=== PATIENT | male | born 1960 | race Caucasian/White ===

== ENCOUNTER 2016-12-16 22:41 | Inpatient (IN) ==
[2016-12-16] MEDS ORDERED: Ipratropium/Albuterol Neb 3 ML IH ONE (23:22)
[2016-12-16] MEDS ORDERED: 0.9 % Sodium Chloride 1,000 ML IVC ONE (23:22)
--- NOTE | 2016-12-16 23:22 | Emergency Department Note ---
Disposition Clinical Impression: Hepatic encephalopathy, Chronic anemia, Altered mental state Disposition: Admitted As Inpatient Condition: Serious SOB HPI - General Chief Complaint: ED Shortness of Breath/Dyspnea Stated Complaint: VIDA, LETHARGIC Time Seen by Provider: 12/16/16 22:50 Source: EMS Limitations: altered mental status Nursing Notes Reviewed: Yes Vital Signs Reviewed: Yes - History of Present Illness Patient presents to the emergency department by EMS squad in home. Apparently he is lethargic at home and lays around does not get up and ambulate he is on a liver transplant list and has not had a paracentesis and "a long time according to his ". She states that he is a full code and that she wants everything done. He has not had any ammonia levels done recently and she states that when his ammonia level gets high this is what happened into this is how he acts. Patient is semi-responsive will answer some questions at times, he is has history of kidney disease, liver failure. He has copious amount of thick purulent sputum in his mouth that he makes no attempt to clear Will not open his eyes on command. Abdomen is firm, distended, with a large umbilical hernia. His main complaint is lower back pain. Pt Subjective Complaint: shortness of breath Onset (ago): unknown Context: recent illness Severity: severe Consistency/Duration: gradually worsening Improves with: nothing Worsens with: lying flat Known history of: other (kidney and liver failure) Cough Description: Involuntary, Productive, Moist Cough Frequency: Intermittent Sputum Amount: Large Sputum Color: Green - Related Data Home oxygen amount: 2 liters Home Medications Medication Instructions Recorded Confirmed Amitriptyline [Elavil] 50 mg PO HS 10/06/15 11/12/16 Oxygen 2 - 4 l NS CONT 08/18/16 11/12/16 [id number] Inhibitor 10 mg IV QWEEK 09/18/16 11/12/16 [Glassia] Potassium Chloride [K-Tab ER] 10 meq PO BID 10/17/16 11/12/16 Ranitidine HCl [Acid Job Training Specialist] 150 mg PO BID 10/17/16 11/12/16 Pantoprazole Sodium [Protonix] 40 mg PO BID 11/01/16 11/12/16 Previous Rx's Medication Instructions Recorded Albuterol Sulfate [Proair 2 puff IH Q4H PRN #1 aer.[id number] 10/11/16 Respiclick] Alprazolam [Xanax 1 MG Tablet] 0.5 mg PO BID PRN #20 10/11/16 Budesonide/Formoterol 160/4.5 2 puff IH BID #1 10/11/16 [Symbicort 160/4.5] Ipratropium/Albuterol Neb [Duoneb] 3 ml IH Q4HR PRN 30 Days 10/11/16 Magnesium Oxide [Mag-Ox] 800 mg PO BID #120 tablet 10/11/16 Nadolol [Corgard] 20 mg PO HS #30 tablet 10/11/16 Oxycodone HCl 15 mg PO Q4H PRN #15 tablet 10/11/16 Pregabalin [Lyrica] 75 mg PO BID #30 capsule 10/11/16 Prochlorperazine Maleate 10 mg PO Q6HR PRN #20 10/11/16 [Compazine] Rifaximin [Xifaxan] 550 mg PO BID #60 tablet 10/11/16 Sucralfate [Carafate] 1 gm PO QID 30 Days 10/11/16 Morphine Sulfate [Morphine Sulfate 30 mg PO DAILY #30 cpmp.24hr 10/21/16 ER] OxyCODONE ER (12 HR) [OxyCONTIN] 20 mg PO Q12HR #60 tab.er.12h 10/21/16 Spironolactone [Aldactone] 100 mg PO BID #60 tablet 10/21/16 Lactulose 30 gm PO TID 30 Days 11/08/16 Ergocalciferol (VITAMIN D2) 50,000 unit PO QWEEK #7 capsule 11/20/16 [Vitamin D2] Folic Acid 5 mg PO DAILY #30 tablet 11/20/16 Furosemide [Lasix] 40 mg PO DAILY #30 tablet 11/20/16 Zinc Sulfate 220 mg PO TID #90 capsule 11/20/16 Allergies Allergy/AdvReac Type Severity Reaction Status Date / Time No Known Allergies Allergy Verified 12/16/16 22:42 All systems ED: reviewed and negative except as stated. Respiratory: Reports: cough, dyspnea, wheezes Gastrointestinal: Reports: abdominal pain Past Medical History - Past Medical History Attestation: Yes The following information was validated with the patient. Source: obtained from family, nursing notes reviewed Medical history: Reports: arthritis, cirrhosis, COPD, coronary artery disease, DVT, diabetes, GERD, GI bleed, hepatitis, hyperlipidemia, hypertension, liver disease, other Surgical history: Reports: other Psychiatric history: Reports: no psych history, other - Social History Smoking Status: Former smoker Smokeless Tobacco Status: No Alcohol use: Reports: none Drug use: Reports: none Physical Exam - General Limitations: altered mental status General appearance: lethargic, in distress, other - Head Head exam: atraumatic, normocephalic, normal inspection - Eye Eye exam: Present: normal appearance, PERRL, EOMI - Expanded ENT Exam External ear exam: Present: normal external inspection, other (ulceration noted of the left ear pinna ) Mouth exam: Present: drooling Teeth exam: Present: dental caries - Neck Neck exam: Present: normal inspection, trachea midline. Absent: tenderness, meningismus, lymphadenopathy, thyromegaly - Chest Chest inspection: Present: normal inspection, symmetric chest wall rise - Expanded Respiratory Exam Location: wheezes: Left, Right, rales: Left, Right, rhonchi: Left, Right, decreased breath sounds: Right - Cardiovascular Cardiovascular exam: Present: regular rate, normal rhythm, normal heart sounds. Absent: systolic murmur, diastolic murmur, JVD - Abdominal Exam Abdominal exam: Present: distention, diminished bowel sounds, ascites Abdominal tenderness: Present: diffuse - Rectal Exam Rectal exam: Present: deferred - Extremities Exam Extremities exam: Present: normal inspection, full ROM. Absent: tenderness, pedal edema - Back Exam Back exam: Present: tenderness (lower back ), other (unable to cooperate with physical exam and unable to raise his extremities upon command ) - Neurological Exam Neurological exam: Present: other (diminished LOC, ) - Skin Skin exam: Present: dry Course Vital Signs Temperature 97.8 F 12/16/16 22:43 Pulse Rate 61 12/16/16 22:43 Respiratory Rate 24 12/16/16 22:43 Blood Pressure 108/71 12/16/16 22:43 O2 Sat by Pulse Oximetry 98 12/16/16 22:43 Temperature 97.8 F 12/16/16 22:43 Pulse Rate 58 12/17/16 00:26 Respiratory Rate 20 12/17/16 00:26 Blood Pressure 116/71 12/17/16 00:26 O2 Sat by Pulse Oximetry 99 12/17/16 00:26 Oxygen Delivery Oxygen Delivery Nasal Cannula Shortness of Breath/Dyspnea - Lab Data Result diagrams: 12/16/16 23:16 12/16/16 23:16 Lab Results 12/16/16 12/16/16 12/16/16 Range/Units 22:48 23:16 23:16 WBC 4.1 L (4.3-11.1) K/mcL RBC 2.66 L (4.19-5.50) M/mcL Hgb 8.4 L (12.9-16.9) g/dL Hct 25.3 L (37.5-50.1) % MCV 95.1 (83.0-100.0) fL MCH 31.6 (28.0-33.3) pg MCHC 33.2 (31.6-35.5) g/dL RDW 15.9 H (11.5-14.5) % Plt Count 82 L (140-400) K/mcL MPV 10.9 (9.4-12.4) fL Immature Gran % 0.5 (0-4) % Seg Neutrophils % 56.1 % Lymphocytes % 24.0 % Monocytes % 13.3 % Eosinophils % 5.4 % Basophils % 0.7 % Neutrophils # 2.3 (1.6-8.9) K/mcL Lymphocytes # 1.0 (0.6-4.6) K/mcL Monocytes # 0.6 (0.0-1.3) K/mcL Eosinophils # 0.2 (0.0-0.6) K/mcL Basophils # 0.0 (0.0-0.2) K/mcL PT (9.4-12.1) Seconds INR APTT (26.0-36.0) Seconds ABG pH (7.32-7.45) pH Units ABG pCO2 (35-45) mmHg ABG pO2 (85-104) mmHg ABG HCO3 (21-27) mEQ/L ABG Total CO2 (20-26) mEq/L ABG O2 Saturation (95-98) % ABG Base Excess (-2.0 to 3.0) mEq/L Blood Gas Modality Inspired O2 % Sodium (136-145) mEq/L Potassium (3.5-4.5) mEq/L Chloride (98-109) mEq/L Carbon Dioxide (19-29) mEq/L BUN (8-26) mg/dL Creatinine (0.72-1.25) mg/dL Est GFR ( Amer) (> 60) Est GFR (Non-Af Amer) (> 60) BUN/Creatinine Ratio (6-26) Glucose (70-99) mg/dL POC Glucose 122 H (58-89) Calculated Osmolality (280-300) Lactic Acid 1.3 (0.5-2.2) mmol/L Calcium (8.6-10.8) mg/dL Ammonia (18-72) mcmol/L Troponin I (0-0.03) ng/mL B-Natriuretic Peptide (0-100) pg/mL Urine Color (Yellow) Urine Clarity (Clear) Urine pH (5.0-8.0) pH Units Ur Specific [place] (1.010-1.025) Urine Protein (Neg-Trace) mg/dL Urine Glucose (UA) (Normal) mg/dL Urine Ketones (Negative) mg/dL Urine Blood (Negative) Urine Nitrite (Negative) Urine Bilirubin (Negative) Urine Urobilinogen (Normal) mg/dL Ur Leukocyte Esterase (Negative) Ur Culture Indicated? (NO) 12/16/16 12/16/16 12/16/16 Range/Units 23:16 23:16 23:16 WBC (4.3-11.1) K/mcL RBC (4.19-5.50) M/mcL Hgb (12.9-16.9) g/dL Hct (37.5-50.1) % MCV (83.0-100.0) fL MCH (28.0-33.3) pg MCHC (31.6-35.5) g/dL RDW (11.5-14.5) % Plt Count (140-400) K/mcL MPV (9.4-12.4) fL Immature Gran % (0-4) % Seg Neutrophils % % Lymphocytes % % Monocytes % % Eosinophils % % Basophils % % Neutrophils # (1.6-8.9) K/mcL Lymphocytes # (0.6-4.6) K/mcL Monocytes # (0.0-1.3) K/mcL Eosinophils # (0.0-0.6) K/mcL Basophils # (0.0-0.2) K/mcL PT (9.4-12.1) Seconds INR APTT (26.0-36.0) Seconds ABG pH (7.32-7.45) pH Units ABG pCO2 (35-45) mmHg ABG pO2 (85-104) mmHg ABG HCO3 (21-27) mEQ/L ABG Total CO2 (20-26) mEq/L ABG O2 Saturation (95-98) % ABG Base Excess (-2.0 to 3.0) mEq/L Blood Gas Modality Inspired O2 % Sodium 137 (136-145) mEq/L Potassium 3.8 (3.5-4.5) mEq/L Chloride 107 (98-109) mEq/L Carbon Dioxide 26 (19-29) mEq/L BUN 22 (8-26) mg/dL Creatinine 0.79 (0.72-1.25) mg/dL Est GFR ( Amer) > 60 (> 60) Est GFR (Non-Af Amer) > 60 (> 60) BUN/Creatinine Ratio 28 H (6-26) Glucose 134 H (70-99) mg/dL POC Glucose (58-89) Calculated Osmolality 289 (280-300) Lactic Acid (0.5-2.2) mmol/L Calcium 8.5 L (8.6-10.8) mg/dL Ammonia (18-72) mcmol/L Troponin I 0.01 (0-0.03) ng/mL B-Natriuretic Peptide 101 H (0-100) pg/mL Urine Color (Yellow) Urine Clarity (Clear) Urine pH (5.0-8.0) pH Units Ur Specific [place] (1.010-1.025) Urine Protein (Neg-Trace) mg/dL Urine Glucose (UA) (Normal) mg/dL Urine Ketones (Negative) mg/dL Urine Blood (Negative) Urine Nitrite (Negative) Urine Bilirubin (Negative) Urine Urobilinogen (Normal) mg/dL Ur Leukocyte Esterase (Negative) Ur Culture Indicated? (NO) 12/16/16 12/16/16 12/16/16 Range/Units 23:16 23:16 23:30 WBC (4.3-11.1) K/mcL RBC (4.19-5.50) M/mcL Hgb (12.9-16.9) g/dL Hct (37.5-50.1) % MCV (83.0-100.0) fL MCH (28.0-33.3) pg MCHC (31.6-35.5) g/dL RDW (11.5-14.5) % Plt Count (140-400) K/mcL MPV (9.4-12.4) fL Immature Gran % (0-4) % Seg Neutrophils % % Lymphocytes % % Monocytes % % Eosinophils % % Basophils % % Neutrophils # (1.6-8.9) K/mcL Lymphocytes # (0.6-4.6) K/mcL Monocytes # (0.0-1.3) K/mcL Eosinophils # (0.0-0.6) K/mcL Basophils # (0.0-0.2) K/mcL PT 21.2 H (9.4-12.1) Seconds INR 1.9 APTT 26.3 (26.0-36.0) Seconds ABG pH 7.39 (7.32-7.45) pH Units ABG pCO2 49 H (35-45) mmHg ABG pO2 67 L (85-104) mmHg ABG HCO3 29.7 H (21-27) mEQ/L ABG Total CO2 31.2 H (20-26) mEq/L ABG O2 Saturation 93 L (95-98) % ABG Base Excess 4.2 H (-2.0 to 3.0) mEq/L Blood Gas Modality [place] Inspired O2 28 % Sodium (136-145) mEq/L Potassium (3.5-4.5) mEq/L Chloride (98-109) mEq/L Carbon Dioxide (19-29) mEq/L BUN (8-26) mg/dL Creatinine (0.72-1.25) mg/dL Est GFR ( Amer) (> 60) Est GFR (Non-Af Amer) (> 60) BUN/Creatinine Ratio (6-26) Glucose (70-99) mg/dL POC Glucose (58-89) Calculated Osmolality (280-300) Lactic Acid (0.5-2.2) mmol/L Calcium (8.6-10.8) mg/dL Ammonia 121 H (18-72) mcmol/L Troponin I (0-0.03) ng/mL B-Natriuretic Peptide (0-100) pg/mL Urine Color (Yellow) Urine Clarity (Clear) Urine pH (5.0-8.0) pH Units Ur Specific [place] (1.010-1.025) Urine Protein (Neg-Trace) mg/dL Urine Glucose (UA) (Normal) mg/dL Urine Ketones (Negative) mg/dL Urine Blood (Negative) Urine Nitrite (Negative) Urine Bilirubin (Negative) Urine Urobilinogen (Normal) mg/dL Ur Leukocyte Esterase (Negative) Ur Culture Indicated? (NO) 12/16/16 Range/Units 23:55 WBC (4.3-11.1) K/mcL RBC (4.19-5.50) M/mcL Hgb (12.9-16.9) g/dL Hct (37.5-50.1) % MCV (83.0-100.0) fL MCH (28.0-33.3) pg MCHC (31.6-35.5) g/dL RDW (11.5-14.5) % Plt Count (140-400) K/mcL MPV (9.4-12.4) fL Immature Gran % (0-4) % Seg Neutrophils % % Lymphocytes % % Monocytes % % Eosinophils % % Basophils % % Neutrophils # (1.6-8.9) K/mcL Lymphocytes # (0.6-4.6) K/mcL Monocytes # (0.0-1.3) K/mcL Eosinophils # (0.0-0.6) K/mcL Basophils # (0.0-0.2) K/mcL PT (9.4-12.1) Seconds INR APTT (26.0-36.0) Seconds ABG pH (7.32-7.45) pH Units ABG pCO2 (35-45) mmHg ABG pO2 (85-104) mmHg ABG HCO3 (21-27) mEQ/L ABG Total CO2 (20-26) mEq/L ABG O2 Saturation (95-98) % ABG Base Excess (-2.0 to 3.0) mEq/L Blood Gas Modality Inspired O2 % Sodium (136-145) mEq/L Potassium (3.5-4.5) mEq/L Chloride (98-109) mEq/L Carbon Dioxide (19-29) mEq/L BUN (8-26) mg/dL Creatinine (0.72-1.25) mg/dL Est GFR ( Amer) (> 60) Est GFR (Non-Af Amer) (> 60) BUN/Creatinine Ratio (6-26) Glucose (70-99) mg/dL POC Glucose (58-89) Calculated Osmolality (280-300) Lactic Acid (0.5-2.2) mmol/L Calcium (8.6-10.8) mg/dL Ammonia (18-72) mcmol/L Troponin I (0-0.03) ng/mL B-Natriuretic Peptide (0-100) pg/mL Urine Color Yellow (Yellow) Urine Clarity Clear (Clear) Urine pH 6.0 (5.0-8.0) pH Units Ur Specific [place] 1.021 (1.010-1.025) Urine Protein Negative (Neg-Trace) mg/dL Urine Glucose (UA) Normal (Normal) mg/dL Urine Ketones Negative (Negative) mg/dL Urine Blood Negative (Negative) Urine Nitrite Negative (Negative) Urine Bilirubin Negative (Negative) Urine Urobilinogen Normal (Normal) mg/dL Ur Leukocyte Esterase Negative (Negative) Ur Culture Indicated? NO (NO) Attestation Statement - Attestation Attestation: I, Elvis Bosch MD, personally performed a history and physical exam of the patient and discussed their management with the midlevel provicer, PAC/MOLD DESIGNER. I reviewed the midlevel provider's note and agree with the documented findings, medical decision making, and plan of care. 56-year-old male with history of liver failure presents with complaining of decreased mental status and some difficulty breathing. She reports that he has episodes like this when his ammonia level gets high. On examination patient is a well-developed well-nourished male who appears much older than his actual age. Patient is very drowsy and lethargic but does respond to verbal stimuli. There is no cyanosis or diaphoresis. Oxygen saturation is 100% on oxygen at 2 L by nasal cannula at time of examination. Sounds are decreased but equal bilaterally. No rales or wheezes noted. Heart regular rate and rhythm. Abdomen soft with bowel sounds present. Distended with ascites. Labs reviewed. The hospitalist, Dr. Aguila, was consulted and accepted admission of the patient.
[2016-12-16 23:29] LABS: Basophils % 0.7 %; Eosinophils # 0.2 K/mcL (0.0-0.6); Eosinophils % 5.4 %; Hematocrit 25.3 % (37.5-50.1); Hemoglobin 8.4 g/dL (12.9-16.9); Immature Granulocytes % 0.5 % (0-4); Mean Corpuscular HGB Conc 33.2 g/dL (31.6-35.5); Mean Corpuscular Hemoglobin 31.6 pg (28.0-33.3); Mean Corpuscular Volume 95.1 fL (83.0-100.0); Mean Platelet Volume 10.9 fL (9.4-12.4); Monocytes # 0.6 K/mcL (0.0-1.3); Monocytes % 13.3 %; Neutrophils # 2.3 K/mcL (1.6-8.9); Platelet Count 82 K/mcL (140-400); Red Blood Count 2.66 M/mcL (4.19-5.50); Red Cell Distribution Width 15.9 % (11.5-14.5); Segmented Neutrophils % 56.1 %
[2016-12-16 23:42] LABS: ABG Base Excess 4.2 mEq/L (-2.0 to 3.0); ABG HCO3 29.7 mEQ/L (21-27); ABG Oxygen Saturation 93 % (95-98); ABG PCO2 49 mmHg (35-45); ABG PH 7.39 pH Units (7.32-7.45); ABG PO2 67 mmHg (85-104); ABG TCO2 31.2 mEq/L (20-26); Blood Gas FiO2 28 %
[2016-12-16 23:43] LABS: BUN/Creatinine Ratio 28 (6-26); Blood Urea Nitrogen 22 mg/dL (8-26); Calcium 8.5 mg/dL (8.6-10.8); Carbon Dioxide 26 mEq/L (19-29); Chloride 107 mEq/L (98-109); Glucose 134 mg/dL (70-99); Osmolality,Calculated 289 (280-300); Potassium 3.8 mEq/L (3.5-4.5); Sodium 137 mEq/L (136-145); eGFR For African Americans > 60 (> 60); eGFR For Non-African Americans > 60 (> 60)
[2016-12-17 00:13] LABS: Bilirubin,Urine Negative (Negative); Blood,Urine Negative (Negative); Clarity,Urine Clear (Clear); Color,Urine Yellow (Yellow); Glucose,Urine (UA) Normal (Normal); Ketones,Urine Negative (Negative); Leukocyte Esterase,Urine Negative (Negative); Nitrite,Urine Negative (Negative); Protein,Urine Negative (Neg-Trace); Specific Gravity,Urine 1.021 (1.010-1.025); Urobilinogen,Urine Normal (Normal)
[2016-12-17] MEDS ORDERED: Lactulose 200 GM/300 ML (for enema) RC ONE (00:13)
--- NOTE | 2016-12-17 00:21 | Emergency Department Note ---
Disposition Clinical Impression: Hepatic encephalopathy, Chronic anemia Altered mental state Qualifiers: Altered mental status type: unspecified Qualified Code(s): R41.82 - Altered mental status, unspecified Disposition: Admitted As Inpatient Condition: Serious General Adult HPI - General Chief complaint: ED Shortness of Breath/Dyspnea Stated complaint: VIDA, LETHARGIC Time Seen by Provider: 12/16/16 23:53 Source: EMS Limitations: altered mental status Nursing Notes Reviewed: Yes Vital Signs Reviewed: Yes - History of Present Illness HPI Narrative: 56-year-old male with past medical history of alpha 1 antitrypsin deficiency. He has end-stage cirrhosis and liver failure. Reportedly he is on the transplant list at [facility]. Over the past 2-3 days he has had progressive decline in his mental status. This is happened numerous times in the past and has been secondary to elevated ammonia levels. He was most recently admitted one month ago. Other medical problems include COPD, hypertension, CKD. He does take lactulose 30 3 times a day and rifaximin. He and his spouse denied that he has had a fever. He and his requests to be full code including intubation if necessary Pain Scale: 0 Consistency: constant Improves with: nothing Worsens with: nothing Associated symptoms: Reports: denies other symptoms Treatments Prior to Arrival: none - Related Data Home Medications Medication Instructions Recorded Confirmed Amitriptyline [Elavil] 50 mg PO HS 10/06/15 11/12/16 Oxygen 2 - 4 l NS CONT 08/18/16 11/12/16 [id number] Inhibitor 10 mg IV QWEEK 09/18/16 11/12/16 [Glassia] Potassium Chloride [K-Tab ER] 10 meq PO BID 10/17/16 11/12/16 Ranitidine HCl [Acid [employer]] 150 mg PO BID 10/17/16 11/12/16 Pantoprazole Sodium [Protonix] 40 mg PO BID 11/01/16 11/12/16 Previous Rx's Medication Instructions Recorded Albuterol Sulfate [Proair 2 puff IH Q4H PRN #1 aer.[id number] 10/11/16 Respiclick] Alprazolam [Xanax 1 MG Tablet] 0.5 mg PO BID PRN #20 10/11/16 Budesonide/Formoterol 160/4.5 2 puff IH BID #1 10/11/16 [Symbicort 160/4.5] Ipratropium/Albuterol Neb [Duoneb] 3 ml IH Q4HR PRN 30 Days 10/11/16 Magnesium Oxide [Mag-Ox] 800 mg PO BID #120 tablet 10/11/16 Nadolol [Corgard] 20 mg PO HS #30 tablet 10/11/16 Oxycodone HCl 15 mg PO Q4H PRN #15 tablet 10/11/16 Pregabalin [Lyrica] 75 mg PO BID #30 capsule 10/11/16 Prochlorperazine Maleate 10 mg PO Q6HR PRN #20 10/11/16 [Compazine] Rifaximin [Xifaxan] 550 mg PO BID #60 tablet 10/11/16 Sucralfate [Carafate] 1 gm PO QID 30 Days 10/11/16 Morphine Sulfate [Morphine Sulfate 30 mg PO DAILY #30 cpmp.24hr 10/21/16 ER] OxyCODONE ER (12 HR) [OxyCONTIN] 20 mg PO Q12HR #60 tab.er.12h 10/21/16 Spironolactone [Aldactone] 100 mg PO BID #60 tablet 10/21/16 Lactulose 30 gm PO TID 30 Days 11/08/16 Ergocalciferol (VITAMIN D2) 50,000 unit PO QWEEK #7 capsule 11/20/16 [Vitamin D2] Folic Acid 5 mg PO DAILY #30 tablet 11/20/16 Furosemide [Lasix] 40 mg PO DAILY #30 tablet 11/20/16 Zinc Sulfate 220 mg PO TID #90 capsule 11/20/16 Allergies Allergy/AdvReac Type Severity Reaction Status Date / Time No Known Allergies Allergy Verified 12/16/16 22:42 All systems ED: reviewed and negative except as stated. Constitutional: Denies: fever Eyes: Denies: vision change ENT ED: Denies: throat pain Respiratory: Reports: cough (Mild) Gastrointestinal: Reports: nausea. Denies: abdominal pain, vomiting Musculoskeletal: Reports: back pain (Chronic) Integumentary: Denies: rash Past Medical History - Past Medical History Medical history: Reports: arthritis, cirrhosis, COPD, coronary artery disease, DVT, diabetes, GERD, GI bleed, hepatitis, hyperlipidemia, hypertension, liver disease, other Surgical history: Reports: other Psychiatric history: Reports: no psych history, other - Social History Smoking Status: Former smoker Smokeless Tobacco Status: No Alcohol use: Reports: none Drug use: Reports: none Physical Exam - General Limitations: altered mental status General appearance: lethargic, other - Head Head exam: atraumatic - Eye Eye exam: Present: PERRL - ENT ENT exam: normal exam, normal oropharynx - Neck Neck exam: Present: normal inspection - Chest Chest inspection: Present: normal inspection - Respiratory Respiratory exam: Present: normal lung sounds bilaterally, other (Upper respiratory rhonchi) - Cardiovascular Cardiovascular exam: Present: regular rate, normal rhythm - Abdominal Exam Abdominal exam: Present: soft (Fluid wave is present, not tense, nontender) - Extremities Exam Extremities exam: Present: normal inspection - Back Exam Back exam: Present: normal inspection - Neurological Exam Neurological exam: Present: other (Decreased mental status and he does wake to answer questions. He does move all extremities) - Skin Skin exam: Present: warm, dry Course Course Narrative: He is currently protecting his airway and will cough on command. He does have an elevated ammonia level but I am concerned about aspiration if he is forced to take the lactulose by mouth. Because of this we will give rectal lactulose. He is afebrile does not have pain on palpation of the abdomen and is not have an elevated white blood cell count. I do not have a current concern for spontaneous bacterial peritonitis. I have given lactulose and Dr. Aguila has agreed to admit the patient. Vital Signs Temperature 97.8 F 12/16/16 22:43 Pulse Rate 61 12/16/16 22:43 Respiratory Rate 24 12/16/16 22:43 Blood Pressure 108/71 12/16/16 22:43 O2 Sat by Pulse Oximetry 98 12/16/16 22:43 Temperature 97.8 F 12/16/16 22:43 Pulse Rate 58 12/17/16 00:26 Respiratory Rate 20 12/17/16 00:26 Blood Pressure 116/71 12/17/16 00:26 O2 Sat by Pulse Oximetry 99 12/17/16 00:26 Oxygen Delivery Oxygen Delivery Nasal Cannula Medical Decision Making - Medical Records Medical records reviewed: Yes I reviewed the patient's medical records. - Lab Data Lab results reviewed: Yes I reviewed the patient's lab results. Result diagrams: 12/16/16 23:16 12/16/16 23:16 Lab Results 12/16/16 12/16/16 12/16/16 Range/Units 22:48 23:16 23:16 WBC 4.1 L (4.3-11.1) K/mcL RBC 2.66 L (4.19-5.50) M/mcL Hgb 8.4 L (12.9-16.9) g/dL Hct 25.3 L (37.5-50.1) % MCV 95.1 (83.0-100.0) fL MCH 31.6 (28.0-33.3) pg MCHC 33.2 (31.6-35.5) g/dL RDW 15.9 H (11.5-14.5) % Plt Count 82 L (140-400) K/mcL MPV 10.9 (9.4-12.4) fL Immature Gran % 0.5 (0-4) % Seg Neutrophils % 56.1 % Lymphocytes % 24.0 % Monocytes % 13.3 % Eosinophils % 5.4 % Basophils % 0.7 % Neutrophils # 2.3 (1.6-8.9) K/mcL Lymphocytes # 1.0 (0.6-4.6) K/mcL Monocytes # 0.6 (0.0-1.3) K/mcL Eosinophils # 0.2 (0.0-0.6) K/mcL Basophils # 0.0 (0.0-0.2) K/mcL PT (9.4-12.1) Seconds INR APTT (26.0-36.0) Seconds ABG pH (7.32-7.45) pH Units ABG pCO2 (35-45) mmHg ABG pO2 (85-104) mmHg ABG HCO3 (21-27) mEQ/L ABG Total CO2 (20-26) mEq/L ABG O2 Saturation (95-98) % ABG Base Excess (-2.0 to 3.0) mEq/L Blood Gas Modality Inspired O2 % Sodium (136-145) mEq/L Potassium (3.5-4.5) mEq/L Chloride (98-109) mEq/L Carbon Dioxide (19-29) mEq/L BUN (8-26) mg/dL Creatinine (0.72-1.25) mg/dL Est GFR ( Amer) (> 60) Est GFR (Non-Af Amer) (> 60) BUN/Creatinine Ratio (6-26) Glucose (70-99) mg/dL POC Glucose 122 H (58-89) Calculated Osmolality (280-300) Lactic Acid 1.3 (0.5-2.2) mmol/L Calcium (8.6-10.8) mg/dL Ammonia (18-72) mcmol/L Troponin I (0-0.03) ng/mL B-Natriuretic Peptide (0-100) pg/mL Urine Color (Yellow) Urine Clarity (Clear) Urine pH (5.0-8.0) pH Units Ur Specific [place] (1.010-1.025) Urine Protein (Neg-Trace) mg/dL Urine Glucose (UA) (Normal) mg/dL Urine Ketones (Negative) mg/dL Urine Blood (Negative) Urine Nitrite (Negative) Urine Bilirubin (Negative) Urine Urobilinogen (Normal) mg/dL Ur Leukocyte Esterase (Negative) Ur Culture Indicated? (NO) 12/16/16 12/16/16 12/16/16 Range/Units 23:16 23:16 23:16 WBC (4.3-11.1) K/mcL RBC (4.19-5.50) M/mcL Hgb (12.9-16.9) g/dL Hct (37.5-50.1) % MCV (83.0-100.0) fL MCH (28.0-33.3) pg MCHC (31.6-35.5) g/dL RDW (11.5-14.5) % Plt Count (140-400) K/mcL MPV (9.4-12.4) fL Immature Gran % (0-4) % Seg Neutrophils % % Lymphocytes % % Monocytes % % Eosinophils % % Basophils % % Neutrophils # (1.6-8.9) K/mcL Lymphocytes # (0.6-4.6) K/mcL Monocytes # (0.0-1.3) K/mcL Eosinophils # (0.0-0.6) K/mcL Basophils # (0.0-0.2) K/mcL PT (9.4-12.1) Seconds INR APTT (26.0-36.0) Seconds ABG pH (7.32-7.45) pH Units ABG pCO2 (35-45) mmHg ABG pO2 (85-104) mmHg ABG HCO3 (21-27) mEQ/L ABG Total CO2 (20-26) mEq/L ABG O2 Saturation (95-98) % ABG Base Excess (-2.0 to 3.0) mEq/L Blood Gas Modality Inspired O2 % Sodium 137 (136-145) mEq/L Potassium 3.8 (3.5-4.5) mEq/L Chloride 107 (98-109) mEq/L Carbon Dioxide 26 (19-29) mEq/L BUN 22 (8-26) mg/dL Creatinine 0.79 (0.72-1.25) mg/dL Est GFR ( Amer) > 60 (> 60) Est GFR (Non-Af Amer) > 60 (> 60) BUN/Creatinine Ratio 28 H (6-26) Glucose 134 H (70-99) mg/dL POC Glucose (58-89) Calculated Osmolality 289 (280-300) Lactic Acid (0.5-2.2) mmol/L Calcium 8.5 L (8.6-10.8) mg/dL Ammonia (18-72) mcmol/L Troponin I 0.01 (0-0.03) ng/mL B-Natriuretic Peptide 101 H (0-100) pg/mL Urine Color (Yellow) Urine Clarity (Clear) Urine pH (5.0-8.0) pH Units Ur Specific [place] (1.010-1.025) Urine Protein (Neg-Trace) mg/dL Urine Glucose (UA) (Normal) mg/dL Urine Ketones (Negative) mg/dL Urine Blood (Negative) Urine Nitrite (Negative) Urine Bilirubin (Negative) Urine Urobilinogen (Normal) mg/dL Ur Leukocyte Esterase (Negative) Ur Culture Indicated? (NO) 12/16/16 12/16/16 12/16/16 Range/Units 23:16 23:16 23:30 WBC (4.3-11.1) K/mcL RBC (4.19-5.50) M/mcL Hgb (12.9-16.9) g/dL Hct (37.5-50.1) % MCV (83.0-100.0) fL MCH (28.0-33.3) pg MCHC (31.6-35.5) g/dL RDW (11.5-14.5) % Plt Count (140-400) K/mcL MPV (9.4-12.4) fL Immature Gran % (0-4) % Seg Neutrophils % % Lymphocytes % % Monocytes % % Eosinophils % % Basophils % % Neutrophils # (1.6-8.9) K/mcL Lymphocytes # (0.6-4.6) K/mcL Monocytes # (0.0-1.3) K/mcL Eosinophils # (0.0-0.6) K/mcL Basophils # (0.0-0.2) K/mcL PT 21.2 H (9.4-12.1) Seconds INR 1.9 APTT 26.3 (26.0-36.0) Seconds ABG pH 7.39 (7.32-7.45) pH Units ABG pCO2 49 H (35-45) mmHg ABG pO2 67 L (85-104) mmHg ABG HCO3 29.7 H (21-27) mEQ/L ABG Total CO2 31.2 H (20-26) mEq/L ABG O2 Saturation 93 L (95-98) % ABG Base Excess 4.2 H (-2.0 to 3.0) mEq/L Blood Gas Modality [place] Inspired O2 28 % Sodium (136-145) mEq/L Potassium (3.5-4.5) mEq/L Chloride (98-109) mEq/L Carbon Dioxide (19-29) mEq/L BUN (8-26) mg/dL Creatinine (0.72-1.25) mg/dL Est GFR ( Amer) (> 60) Est GFR (Non-Af Amer) (> 60) BUN/Creatinine Ratio (6-26) Glucose (70-99) mg/dL POC Glucose (58-89) Calculated Osmolality (280-300) Lactic Acid (0.5-2.2) mmol/L Calcium (8.6-10.8) mg/dL Ammonia 121 H (18-72) mcmol/L Troponin I (0-0.03) ng/mL B-Natriuretic Peptide (0-100) pg/mL Urine Color (Yellow) Urine Clarity (Clear) Urine pH (5.0-8.0) pH Units Ur Specific [place] (1.010-1.025) Urine Protein (Neg-Trace) mg/dL Urine Glucose (UA) (Normal) mg/dL Urine Ketones (Negative) mg/dL Urine Blood (Negative) Urine Nitrite (Negative) Urine Bilirubin (Negative) Urine Urobilinogen (Normal) mg/dL Ur Leukocyte Esterase (Negative) Ur Culture Indicated? (NO) 12/16/16 Range/Units 23:55 WBC (4.3-11.1) K/mcL RBC (4.19-5.50) M/mcL Hgb (12.9-16.9) g/dL Hct (37.5-50.1) % MCV (83.0-100.0) fL MCH (28.0-33.3) pg MCHC (31.6-35.5) g/dL RDW (11.5-14.5) % Plt Count (140-400) K/mcL MPV (9.4-12.4) fL Immature Gran % (0-4) % Seg Neutrophils % % Lymphocytes % % Monocytes % % Eosinophils % % Basophils % % Neutrophils # (1.6-8.9) K/mcL Lymphocytes # (0.6-4.6) K/mcL Monocytes # (0.0-1.3) K/mcL Eosinophils # (0.0-0.6) K/mcL Basophils # (0.0-0.2) K/mcL PT (9.4-12.1) Seconds INR APTT (26.0-36.0) Seconds ABG pH (7.32-7.45) pH Units ABG pCO2 (35-45) mmHg ABG pO2 (85-104) mmHg ABG HCO3 (21-27) mEQ/L ABG Total CO2 (20-26) mEq/L ABG O2 Saturation (95-98) % ABG Base Excess (-2.0 to 3.0) mEq/L Blood Gas Modality Inspired O2 % Sodium (136-145) mEq/L Potassium (3.5-4.5) mEq/L Chloride (98-109) mEq/L Carbon Dioxide (19-29) mEq/L BUN (8-26) mg/dL Creatinine (0.72-1.25) mg/dL Est GFR ( Amer) (> 60) Est GFR (Non-Af Amer) (> 60) BUN/Creatinine Ratio (6-26) Glucose (70-99) mg/dL POC Glucose (58-89) Calculated Osmolality (280-300) Lactic Acid (0.5-2.2) mmol/L Calcium (8.6-10.8) mg/dL Ammonia (18-72) mcmol/L Troponin I (0-0.03) ng/mL B-Natriuretic Peptide (0-100) pg/mL Urine Color Yellow (Yellow) Urine Clarity Clear (Clear) Urine pH 6.0 (5.0-8.0) pH Units Ur Specific [place] 1.021 (1.010-1.025) Urine Protein Negative (Neg-Trace) mg/dL Urine Glucose (UA) Normal (Normal) mg/dL Urine Ketones Negative (Negative) mg/dL Urine Blood Negative (Negative) Urine Nitrite Negative (Negative) Urine Bilirubin Negative (Negative) Urine Urobilinogen Normal (Normal) mg/dL Ur Leukocyte Esterase Negative (Negative) Ur Culture Indicated? NO (NO) - Radiology Data Radiology results reviewed: Yes I reviewed the patient's radiology results. Attestation Statement - Attestation Attestation: I, Elvis Bosch MD, personally performed a history and physical exam of the patient and discussed their management with the resident. I reviewed the resident's note and agree with the documented findings, medical decision making , and plan of care. 56-year-old male with history of liver failure presents with complaining of decreased mental status and some difficulty breathing. She reports that he has episodes like this when his ammonia level gets high. On examination patient is a well-developed well-nourished male who appears much older than his actual age. Patient is very drowsy and lethargic but does respond to verbal stimuli. There is no cyanosis or diaphoresis. Oxygen saturation is 100% on oxygen at 2 L by nasal cannula at time of examination. Sounds are decreased but equal bilaterally. No rales or wheezes noted. Heart regular rate and rhythm. Abdomen soft with bowel sounds present. Distended with ascites. Labs reviewed. The hospitalist, Dr. Aguila, was consulted and accepted admission of the patient.
[2016-12-17 00:37] LABS: INR 1.9; Prothrombin Time 21.2 Seconds (9.4-12.1)
[2016-12-17 00:40] LABS: Activated Partial Thrombo Time 26.3 Seconds (26.0-36.0)
[2016-12-17] MEDS ORDERED: Naloxone 0.4 MG/ML INJ IVP PRN (02:42)
[2016-12-17] MEDS ORDERED: Ibuprofen 400 MG TABLET PO PRN (02:48)
[2016-12-17] MEDS ORDERED: Ondansetron 4 MG/2 ML VIAL IVP PRN (02:48)
[2016-12-17] MEDS ORDERED: Ipratropium/Albuterol Neb 3 ML IH PRN (02:58)
[2016-12-17] MEDS ORDERED: ALPHA 1 PROTEINASE INHIBITOR IVP SCH (03:00)
--- NOTE | 2016-12-17 03:10 | Internal Med History&Physical ---
<Jordan King - Last Filed: 12/17/16 06:07> Date of Encounter: 12/17/16 Time of Encounter: 02:00 Assessment and Plan (1) Hepatic encephalopathy Current visit: Yes Status: Chronic Etiology likely due to cirrhosis from rljpx-4-mlrgtiotfkx deficiency. Continue home regimen of lactulose. Consult to Gastroenterology- patient has history of esophageal varices and may need EGD NPO except medications. In setting of fevers, chills, and newly placed PICC line, consider sepsis as a possible cause. Patient has history of urine culture positive for ESBL E.Coli Empiric coverage with vancomycin and zosyn Blood cultures x2 pending. (2) COPD exacerbation Current visit: No Status: Acute Patient has underlying lung disease with baseline wheezing. Likely in exacerbation-patient has had increased cough and sputum production for the past 5 days. IV antibiotic coverage as above. 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 He is allegedly on list for liver transplant. Patient wishes to remain full code. If he continues to deteriorate, he will likely need to be sent to larger medical facility with available organ transplant services. (4) Cirrhosis of liver with ascites Current visit: No Status: Chronic Consult to interventional radiology for paracentesis. continue home meds. consult to GI Qualifiers: Hepatic cirrhosis type: unspecified hepatic cirrhosis Qualified Code(s): K74.60 - Unspecified cirrhosis of liver (5) GERD (gastroesophageal reflux disease) Current visit: No Status: Chronic IV protonix for GI prophylaxis. Qualifiers: Esophagitis presence: esophagitis presence not specified Qualified Code(s) : K21.9 - Gastro-esophageal reflux disease without esophagitis (6) Type II diabetes mellitus Current visit: No Status: Chronic medium dose sliding scale insulin coverage with Q4 Accuchecks. Qualifiers: Diabetes mellitus complication status: with unspecified complications Diabetes mellitus terminal clerk insulin use: unspecified fdc insulin use status Qualified Code(s): E11.8 - Type 2 diabetes mellitus with unspecified complications (7) Goals of care, counseling/discussion Current visit: No Status: Chronic Betina is patient's POA. Patient wishes to be full code, however realizes that this may be an unrealistic expectation. She states that she will do what the patient wishes. In setting of ceaqh-8-imwuudhdtra deficiency, liver failure, and overall debilitating health, patient and family would benefit from goals of care discussion. Consult to palliative care. (8) DVT prophylaxis Current visit: No Status: Acute EPCDs Internal Medicine - H&P: HPI Chief complaint: shortness of breath History of present illness: PCP: Alberta Santo Mr. Zelaya is a 56 year old male with PMHx of GERD, chronic back pain, HTN, HLD , CAD, DM II, sfivg-1-zbunpzgdjgs deficiency, ascites, cirrhosis, COPD (on 2L home oxygen). History was obtained from , who was present in the room. She states that for the past five days, the patient has had increased cough with dark green sputum production. No hemoptysis was noted. The states that the patient is on a transplant list to receive a liver transplant. The patient has chest pain all the time. The pain is present in the middle of his chest. He has fever, chills, and hematuria. The patient has a significant history of ascites, and gets paracentesis done weekly. However, he has canceled his paracentesis appointments for the past several weeks because he could not come to the hospital because of overall weakness. Of note, he has a PICC line that was inserted about two weeks ago. Social History: denies alcohol use, illicit drug use. Not a current smoker. He smoked for about five years, 2PPD and quit 17 years ago. Family History: Mother and sister had alpha one antitrypsin. Mother had lung cancer and was a smoker. Father at age 36 from car accident. Past Med Surg Social Fam HX - Past Medical History Medical history: arthritis, cirrhosis, COPD, coronary artery disease, DVT, diabetes, GERD, GI bleed, hepatitis, hyperlipidemia, hypertension, liver disease , other Psychiatric history: no psych history, other - Past Surgical History Surgical History: other - Social History Smoking Status: Former smoker Smokeless Tobacco Status: No Alcohol use: none Drug use: none - Family History Mother Living Status: Hx Family Cardiac Disorders: Yes Hx Family Respiratory Disorders: Yes Father Living Status: Hx Family Cardiac Disorders: No Hx Family Respiratory Disorders: No Hx Family Cancer: No Hx Family GI Disorders: No Hx Family Endocrine Disorder: No Hx Family Neuromuscular Disorders: No Hx Family Neurologic Disorders: No Hx Family HEENT Disorders: No Hx Family Autoimmune Disorders: No Internal Medicine - H&P: Meds Amitriptyline [Elavil] 50 mg PO HS 10/06/15 [History] Oxygen 2 - 4 l NS CONT 08/18/16 [History] Vjaxk-0-Otcyinnixq Inhibitor [Glassia] 10 mg IV QWEEK 09/18/16 [History] Albuterol Sulfate [Proair Respiclick] 2 puff IH Q4H PRN #1 aer.pow.ba 10/11/16 [ Rx] Alprazolam [Xanax 1 MG Tablet] 0.5 mg PO BID PRN #20 10/11/16 [Rx] Budesonide/Formoterol 160/4.5 [Symbicort 160/4.5] 2 puff IH BID #1 10/11/16 [Rx ] Ipratropium/Albuterol Neb [Duoneb] 3 ml IH Q4HR PRN 30 Days 10/11/16 [Rx] Magnesium Oxide [Mag-Ox] 800 mg PO BID #120 tablet 10/11/16 [Rx] Nadolol [Corgard] 20 mg PO HS #30 tablet 10/11/16 [Rx] Oxycodone HCl 15 mg PO Q4H PRN #15 tablet 10/11/16 [Rx] Pregabalin [Lyrica] 75 mg PO BID #30 capsule 10/11/16 [Rx] Prochlorperazine Maleate [Compazine] 10 mg PO Q6HR PRN #20 10/11/16 [Rx] Rifaximin [Xifaxan] 550 mg PO BID #60 tablet 10/11/16 [Rx] Sucralfate [Carafate] 1 gm PO QID 30 Days 10/11/16 [Rx] Potassium Chloride [K-Tab ER] 10 meq PO BID 10/17/16 [History] Ranitidine HCl [Acid Inside [employer] Sales] 150 mg PO BID 10/17/16 [History] Morphine Sulfate [Morphine Sulfate ER] 30 mg PO DAILY #30 cpmp.24hr 10/21/16 [Rx ] OxyCODONE ER (12 HR) [OxyCONTIN] 20 mg PO Q12HR #60 tab.er.12h 10/21/16 [Rx] Spironolactone [Aldactone] 100 mg PO BID #60 tablet 10/21/16 [Rx] Pantoprazole Sodium [Protonix] 40 mg PO BID 11/01/16 [History] Lactulose 30 gm PO TID 30 Days 11/08/16 [Rx] Ergocalciferol (VITAMIN D2) [Vitamin D2] 50,000 unit PO QWEEK #7 capsule [Rx] Folic Acid 5 mg PO DAILY #30 tablet 11/20/16 [Rx] Furosemide [Lasix] 40 mg PO DAILY #30 tablet 11/20/16 [Rx] Zinc Sulfate 220 mg PO TID #90 capsule 11/20/16 [Rx] Allergies No Known Allergies Allergy (Verified 12/16/16 22:42) ROS unobtainable: other (patient has hepatic encephalopathy.) All Systems PM: A 10-system review of systems was performed and is negative for pertinent findings except as documented above in the HPI. - Constitutional Vitals: Temp Pulse Resp BP Pulse Ox 97.8 F 60 20 117/67 100 12/16/16 22:43 12/17/16 00:56 12/17/16 00:56 12/17/16 00:56 12/17/16 00:56 General appearance: Present: mild distress, A&O X 3 - Head Head exam: Present: atraumatic - Respiratory Respiratory exam: Present: rales, rhonchi, wheezes - Cardiovascular Cardiovascular exam: Present: distant heart sounds - GI/Abdominal GI/Abdominal exam: Present: distended, hernia (umbillical), normal bowel sounds. Absent: guarding Additional comments: umbillical hernia present. Patient has significant abdominal distention due to ascites. He reports tenderness to deep palpation of abdomen. - Extremities Exam Extremities exam: Absent: cyanotic, pedal edema - Neurological Exam Neurological exam: Present: altered Internal Med - H&P Results - Labs CBC & Chem 7: 12/17/16 04:20 12/17/16 04:20 <Edwin Phan - Last Filed: 12/17/16 06:48> Date of Encounter: 12/17/16 Internal Medicine - H&P: HPI History of present illness: Mr. Zelaya is a 56 year old male ROS unobtainable: due to mental status (due to encephalopathy) - Constitutional Vitals: Temp Pulse Resp BP Pulse Ox 98.5 F 68 22 110/63 95 12/17/16 03:19 12/17/16 03:19 12/17/16 03:19 12/17/16 03:19 12/17/16 03:19 General appearance: Present: A&O X 1, disheveled, mild distress. Absent: answers questions appropriately - Head Head exam: Present: atraumatic - Expanded Head Exam Head exam expanded: Absent: abrasion, contusion, general tenderness - Eye Eye exam: Present: PERRL. Absent: scleral icterus - ENT ENT exam: Present: mucous membranes dry, normal external ear exam - Neck Neck exam general surgery: Present: full ROM, supple. Absent: nuchal rigidity, thyromegaly - Respiratory Respiratory exam: Present: rales, respiratory distress (mild), rhonchi, wheezes. Absent: chest wall tenderness - Cardiovascular Cardiovascular exam: Present: distant heart sounds, +S1, +S2. Absent: JVD, systolic murmur - GI/Abdominal GI/Abdominal exam: Present: distended, normal bowel sounds. Absent: mass, splenomegaly, tenderness - Extremities Exam Extremities exam: Absent: calf tenderness, joint swelling - Neurological Exam Neurological exam: Present: altered. Absent: oriented X3, no focal deficits Additional comments: weak, somnolent, confused often - Psychiatric Psychiatric exam: Present: depressed Additional comments: somnolent and depressed - Skin Skin exam: Present: dry, pallor, warm. Absent: mottled Additional comments: PICC line in right arm without signs of redness, pain, or swelling Internal Med - H&P Results - Labs CBC & Chem 7: 12/17/16 04:20 12/17/16 04:20 Labs: Short CBC 12/17/16 Range/Units 04:20 WBC 4.5 (4.3-11.1) K/mcL Hgb 8.0 L (12.9-16.9) g/dL Hct 23.7 L (37.5-50.1) % Plt Count 82 L (140-400) K/mcL Neutrophils # 2.7 (1.6-8.9) K/mcL BMP 12/17/16 04:20 Sodium 137 Potassium 3.7 Chloride 108 Carbon Dioxide 25 BUN 21 Creatinine 0.78 Glucose 124 H Calcium 8.2 L Liver Function 12/17/16 Range/Units 04:20 Total Bilirubin 0.9 (0.2-1.2) mg/dL AST 48 H (5-34) Units/L ALT 18 (0-55) Units/L Alkaline Phosphatase 107 (38-126) Units/L Albumin 2.5 L (3.5-5.0) g/dL - Attending Attestation I discussed the patient SITKA, PMH, ROS, lab, data, and exam findings with Dr. King. I then saw and examined patient independently as well. Pt is somnolent, confused, and unable to provide much, if any history, to me. Unfortunately, his and family are not present at this time. Pt appears to be chronically ill and appears to have end stage liver disease. Based upon prior discussions I've had with patient and family, along with current comments made by /POA, pt and family wishes are that he be full code and pursue all aggressive measures. I do not believe he would be a transplant candidate based upon his current status. I believe he would benefit from palliative care. I recommend patient, family, and primary hospitalist team meet with palliative care to discuss options. If patient and family wish to pursue aggressive measures, then I recommend consideration to transfer to [facility] for ongoing care and management. Meanwhile, we will continue treatment as noted by Dr. Triplett. Additionally, I asked RN to draw blood cultures given that he has a PICC line and worsening encephalopathy. We will start empiric antibiotics for the remote possibility of blood stream infection. Other than my comments above and noted findings, I agree with Dr. King' assessment and plan.
[2016-12-17 04:36] LABS: Basophils % 0.7 %; Immature Granulocytes % 0.2 % (0-4); Mean Corpuscular Volume 94.4 fL (83.0-100.0)
[2016-12-17 04:38] LABS: Eosinophils # 0.2 K/mcL (0.0-0.6); Eosinophils % 4.6 %; Hematocrit 23.7 % (37.5-50.1); Immature Platelets 3.3 % (1.1-6.1); Lymphocytes # 0.9 K/mcL (0.6-4.6); Lymphocytes % 20.5 %; Mean Corpuscular HGB Conc 33.8 g/dL (31.6-35.5); Mean Corpuscular Hemoglobin 31.9 pg (28.0-33.3); Mean Platelet Volume 10.5 fL (9.4-12.4); Monocytes # 0.6 K/mcL (0.0-1.3); Monocytes % 13.7 %; Neutrophils # 2.7 K/mcL (1.6-8.9); Red Blood Count 2.51 M/mcL (4.19-5.50); Red Cell Distribution Width 15.6 % (11.5-14.5); Segmented Neutrophils % 60.3 %
[2016-12-17 04:42] LABS: Prothrombin Time 21.7 Seconds (9.4-12.1)
[2016-12-17 04:43] LABS: Platelet Count 82 K/mcL (140-400)
[2016-12-17 04:48] LABS: Alanine Aminotransferase 18 Units/L (0-55); Albumin 2.5 g/dL (3.5-5.0); Albumin/Globulin Ratio 0.5 (1.1-2.2); Alkaline Phosphatase 107 Units/L (38-126); Aspartate Amino Transferase 48 Units/L (5-34); BUN/Creatinine Ratio 27 (6-26); Bilirubin,Total 0.9 mg/dL (0.2-1.2); Blood Urea Nitrogen 21 mg/dL (8-26); Calcium 8.2 mg/dL (8.6-10.8); Carbon Dioxide 25 mEq/L (19-29); Chloride 108 mEq/L (98-109); Glucose 124 mg/dL (70-99); Magnesium 1.2 mg/dL (1.6-2.6); Osmolality,Calculated 288 (280-300); Phosphorous 2.3 mg/dL (2.3-4.7); Potassium 3.7 mEq/L (3.5-4.5); Sodium 137 mEq/L (136-145); Total Protein 7.5 g/dL (6.0-8.3); eGFR For African Americans > 60 (> 60); eGFR For Non-African Americans > 60 (> 60)
[2016-12-17] MEDS: Vancomycin 1,500 MG in D5% in Water 250 ML IVPB SCH ×2 (05:41→16:31)
[2016-12-17] MEDS ORDERED: D5% in Water 1,000 ML IV PRN (05:44)
[2016-12-17] MEDS ORDERED: *HR* Dextrose 50 % in Water (Syg) 50 ML SYRINGE IVP PRN (05:44)
[2016-12-17] MEDS ORDERED: Dextrose Gel 15 GM PO PRN ×2 (05:44)
[2016-12-17] MEDS ORDERED: Vancomycin 1,500 MG in D5% in Water 250 ML IVPB SCH (06:00)
[2016-12-17] MEDS ORDERED: *HR* Phytonadione 10 MG/ML AMPUL SQ ONE (08:02)
--- NOTE | 2016-12-17 08:20 | Gastroenterology Consult Note ---
<Delores Blanco - Last Filed: 12/17/16 10:39> Date of Encounter: 12/17/16 Time of Encounter: 10:30 - Assessment and plan (1) Bdari-5-rdrsmrzaoiz deficiency Current Visit: Yes Status: Chronic (2) Hepatic encephalopathy Current Visit: Yes Status: Chronic Assessment and plan: Reduce sedating medications as able. Continue lactulose titrate to 2-4 BM daily. Xifaxan 400 mg tid during in patient stay, 550 mg po bid at home. Zinc supplement daily. (3) Ascites Current Visit: No Status: Chronic Assessment and plan: Plan for paracentesis today. Vit K SQ administered as INR is 2.0 currently. Patient is on regular tap schedule but has been unable to have a tap due to weakness/illness and inability to travel. Continue diuretics, kidney function wnl during this INPT stay. Albumin infusion. Patient did not have enough fluid to tap effectively per I/R. Qualifiers: Ascites type: other type Qualified Code(s): R18.8 - Other ascites (4) Elevated INR Current Visit: No Status: Chronic Assessment and plan: Vit K SQ today. Continue to monitor. (5) Hepatic encephalopathy Current Visit: No Status: Chronic Assessment and plan: Likely exacerbated by acute illness. Reduce sedating medications. Continue lactulose, Xifaxan, Zinc. (6) Infection due to ESBL-producing Escherichia coli Current Visit: No Status: Chronic Assessment and plan: Hospitalist management. (7) Cirrhosis of liver Current Visit: No Status: Chronic Assessment and plan: Due to alpha 1 antitrypsin. Patient has been referred to [facility] for lung/liver transplant - family cannot make the trip. Referral to [facility] for same , insurance obstacles with high out of pocket, working on patient assistance paperwork through GI clinic. MELD Na/MELD 14/14, Elyssa Freed Class C Qualifiers: Hepatic cirrhosis type: unspecified hepatic cirrhosis Ascites presence: with ascites Qualified Code(s): K74.60 - Unspecified cirrhosis of liver (8) Hepatitis B Current Visit: No Status: Chronic Qualifiers: Viral hepatitis chronicity: chronic Hepatic coma status: without hepatic coma Hepatitis delta agent presence: without delta-agent Qualified Code(s): B18.1 - Chronic viral hepatitis B without delta-agent (9) Thrombocytopenia Current Visit: No Status: Chronic Assessment and plan: Stable, >50 - Time Spent With Patient Total time spent is greater than 50% in coordination of care (as documented) at patient's floor/unit and/or counseling patient: less than 15 minutes GI History of Present Illness - Data of Consult Patient: known to practice within the last 3 years Consult date: 12/17/16 Requesting Physician: Giovanni Price MD - Consult Narrative Reason for consult: alpha1 antitrypsin cirrhosis History of present illness: Mr. Zelaya is a 56 year old male with PMHx of GERD, chronic back pain, HTN, HLD , CAD, DM II, dysey-3-axvswzlplid deficiency, ascites, cirrhosis, COPD (on 2L home oxygen). History was obtained from , who was present in the room. She states that for the past five days, the patient has had increased cough with dark green sputum production. No hemoptysis was noted. The states that the patient is on a transplant list to receive a liver transplant. The patient has chest pain all the time. The pain is present in the middle of his chest. He has fever, chills, and hematuria. The patient has a significant history of ascites, and gets paracentesis done weekly. However, he has canceled his paracentesis appointments for the past several weeks because he could not come to the hospital because of overall weakness. Of note, he has a PICC line that was inserted about two weeks ago. Patient was seen recently in prior hospitalization by GI 11/12/16, at that time he underwent EGD showing grade 1 varices and portal hypertension gastropathy by Dr. Ariza. US liver was done showing no lesion. Afp was grossly elevated at 298, abdominal MRI was negative for liver lesion. Patient had been referred to [facility] for evaluation for lung/liver transplantation but the family was unable to make that trip. GI office worked on getting patient to [facility] for similar evaluation, however, the co-insurance requirements with the patient's insurance plan make this somewhat economically unfeasible. Patient may qualify for patient assistance which was communicated to the family and materials are being submitted. Patient has hepatic encephalopathy requiring use of lactulose, Xifaxan and Zinc supplements. He is on many sedating medications, Xanax, Elavil , compazine etc, that may be contributing to his overall lethargy. Patient was resting comfortably, alert to person and place watching television in no acute distress. Resp easy and even. Colonoscopy: None noted EGD: 11/12/16 - Gul - grade 1 varices, portal HTN gastropathy Past Med Surg Social Fam HX - Past Medical History Medical history: arthritis, cirrhosis, COPD, coronary artery disease, DVT, diabetes, GERD, GI bleed, hepatitis, hyperlipidemia, hypertension, liver disease , other Psychiatric history: no psych history, other - Past Surgical History Surgical History: other - Social History Smoking Status: Former smoker Smokeless Tobacco Status: No Alcohol use: none Drug use: none - Family History Mother Living Status: Hx Family Cardiac Disorders: Yes Hx Family Respiratory Disorders: Yes Hx Family Cancer: (lung ca) Hx Family Endocrine Disorder: Yes (DM) Father Living Status: Hx Family Cardiac Disorders: No Hx Family Respiratory Disorders: No Hx Family Cancer: No Hx Family GI Disorders: No Hx Family Endocrine Disorder: No Hx Family Neuromuscular Disorders: No Hx Family Neurologic Disorders: No Hx Family HEENT Disorders: No Hx Family Autoimmune Disorders: No - Gastrointestinal NSAID use: None Anticoagulation Use: None Number of BM Per Day: Unknown - Constitutional Constitutional: as per HPI - EENT Eyes: as per HPI Ears: Present: as per HPI Nose, mouth and throat: Present: as per HPI - Cardiovascular Cardiovascular ROS: Present: as per HPI - Respiratory Respiratory IM: Present: dyspnea - Neurological ROS Neurological GI: Present: confusion, weakness - Hematologic/Lymphatic Hematologic/Lymphatic pediatric: Present: as per HPI - Musculoskeletal Musculoskeletal ROS GI: Present: as per HPI - Integumentary Integumentary GI: Present: as per HPI - Psychiatric ROS Psychiatric GI: Present: as per HPI - Endocrine Endocrine IM: Present: as per HPI - Constitutional Vitals: Temp Pulse Resp BP Pulse Ox 97.8 F 61 16 107/68 99 12/17/16 06:39 12/17/16 06:39 12/17/16 06:39 12/17/16 06:39 12/17/16 06:39 General appearance: Present: cooperative, A&O X 2, pleasant, answers questions appropriately Exam: appears chronically ill - Head Head exam: Present: atraumatic, normocephalic - Eye Eye exam: Present: normal appearance, sclera anicteric - ENT ENT exam: Present: mucous membranes dry Additional comments: evidence of excoriation interior bottom lip, evidence of tooth discoloration - Neck Neck exam general surgery: Present: normal inspection, trachea midline - Respiratory Respiratory exam: Present: decreased breath sounds Additional comments: on supplemental oxygen - Cardiovascular Cardiovascular exam: Present: RRR, +S1, +S2 - GI/Abdominal GI/Abdominal exam: Present: distended, soft, no peritoneal signs - Rectal Rectal exam: Present: deferred - Extremities Exam Extremities exam: Present: warm - Neurological Exam Neurological exam: Present: altered - Psychiatric Psychiatric exam: Present: flat affect - Skin Skin exam: Present: dry, pallor, warm Results - Labs CBC & Chem 7: 12/17/16 04:20 12/17/16 04:20 Labs: Last Result Calcium 8.2 mg/dL (8.6-10.8) L 12/17/16 04:20 Troponin I 0.01 ng/mL (0-0.03) 12/16/16 23:16 Entire Visit Hgb 8.0 g/dL (12.9-16.9) L 12/17/16 04:20 Hct 23.7 % (37.5-50.1) L 12/17/16 04:20 PT 21.7 Seconds (9.4-12.1) H 12/17/16 04:20 Total Bilirubin 0.9 mg/dL (0.2-1.2) 12/17/16 04:20 AST 48 Units/L (5-34) H 12/17/16 04:20 ALT 18 Units/L (0-55) 12/17/16 04:20 Ammonia 121 mcmol/L (18-72) H 12/16/16 23:16 - ABG ABG results: ABG ABG pH 7.39 pH Units (7.32-7.45) 12/16/16 23:30 ABG pCO2 49 mmHg (35-45) H 12/16/16 23:30 ABG pO2 67 mmHg (85-104) L 12/16/16 23:30 ABG O2 Saturation 93 % (95-98) L 12/16/16 23:30 PT/INR, D-dimer PT 21.7 Seconds (9.4-12.1) H 12/17/16 04:20 Consult Discharge Plan - Plan Referrals: Tiny Santo, [Primary Care Provider] - <[email or web address] - Last Filed: 12/17/16 12:31> Date of Encounter: 12/17/16 Time of Encounter: 11:00 - Time Spent With Patient Total time spent is greater than 50% in coordination of care (as documented) at patient's floor/unit and/or counseling patient: GI History of Present Illness - Data of Consult Requesting Physician: Giovanni Price MD - Consult Narrative History of present illness: Mr. Zelaya is a 56 year old male - Constitutional Vitals: Temp Pulse Resp BP Pulse Ox 97.8 F 61 16 107/68 99 12/17/16 06:39 12/17/16 06:39 12/17/16 06:39 12/17/16 06:39 12/17/16 06:39 Results - Labs CBC & Chem 7: 12/17/16 04:20 12/17/16 04:20 Labs: Last Result Calcium 8.2 mg/dL (8.6-10.8) L 12/17/16 04:20 Troponin I 0.01 ng/mL (0-0.03) 12/16/16 23:16 Entire Visit Hgb 8.0 g/dL (12.9-16.9) L 12/17/16 04:20 Hct 23.7 % (37.5-50.1) L 12/17/16 04:20 PT 21.7 Seconds (9.4-12.1) H 12/17/16 04:20 Total Bilirubin 0.9 mg/dL (0.2-1.2) 12/17/16 04:20 AST 48 Units/L (5-34) H 12/17/16 04:20 ALT 18 Units/L (0-55) 12/17/16 04:20 Ammonia 121 mcmol/L (18-72) H 12/16/16 23:16 - ABG ABG results: ABG ABG pH 7.39 pH Units (7.32-7.45) 12/16/16 23:30 ABG pCO2 49 mmHg (35-45) H 12/16/16 23:30 ABG pO2 67 mmHg (85-104) L 12/16/16 23:30 ABG O2 Saturation 93 % (95-98) L 12/16/16 23:30 PT/INR, D-dimer PT 21.7 Seconds (9.4-12.1) H 12/17/16 04:20 - Attending Attestation I examined this patient and my medical decision-making was reviewed with the AIRLINE TICKET AGENT/PA/Advanced Practice Nurse/Resident Physician. I agree with the documented findings, disposition and treatment plan as described except to the extent set forth below.
[2016-12-17] MEDS ORDERED: Budesonide/Formoterol 160/4.5 MDI IH SCH (09:00)
[2016-12-17] MEDS: Insulin LISPRO 300 UNITS/3 ML VIAL SQ SCH ×3 (09:40→17:53)
[2016-12-17] MEDS: Piperacillin/Tazobactam 3.375 GM in D5% in Water (Mini-Bag+) 100 ML IVPB SCH ×2 (09:51→16:33)
[2016-12-17] MEDS: MethylPREDNISolone 40 MG/ML VIAL IVP SCH ×2 (09:51→16:32)
[2016-12-17] MEDS: Pregabalin 25 MG CAPSULE PO SCH ×2 (09:51→21:29)
[2016-12-17] MEDS: Pantoprazole 40 MG VIAL IVP SCH (09:52)
[2016-12-17] MEDS: Furosemide 40 MG TABLET PO SCH (09:52)
[2016-12-17] MEDS: Lactulose Oral Soln 20 GM/30 ML UDC PO SCH ×3 (09:52→21:26)
[2016-12-17] MEDS: Magnesium Oxide 400 MG TABLET PO SCH ×2 (09:52→21:27)
[2016-12-17] MEDS: Zinc Sulfate 220 MG CAPSULE PO SCH (09:52)
[2016-12-17] MEDS: Albumin 25% 25gram/100mL 25 GM/100 ML IV.SOLN IVPB SCH ×4 (09:59→21:20)
[2016-12-17] MEDS: *HR* OxyCODONE Immed Rel 15 MG TABLET PO PRN ×3 (10:15→21:32)
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
--- NOTE | 2016-12-17 12:44 | Internal Med Progress Note ---
Date of Encounter: 12/17/16 Time of Encounter: 10:00 - Assessment and plan (1) Hepatic encephalopathy Current Visit: Yes Status: Chronic Assessment and plan: We will continue lactulose and rifaximin. Keep with 2-4 BM daily. Zinc supplement. GI consult on case and recommendations will be followed. Patient is at high risk because of his has acute altered mental status. (2) Ewmie-3-nrrvsdppbni deficiency Current Visit: Yes Status: Chronic Assessment and plan: Patient has alpha-1 antitrypsin infusion as outpatient (3) Ascites Current Visit: No Status: Acute Assessment and plan: Due to cirrhosis. Paracentesis periodically Qualifiers: Ascites type: other type Qualified Code(s): R18.8 - Other ascites (4) COPD exacerbation Current Visit: No Status: Acute Assessment and plan: Patient had no wheezing now. We will continue nebulizer when necessary. (5) DVT prophylaxis Current Visit: No Status: Acute Assessment and plan: EPCD (6) Elevated INR Current Visit: No Status: Chronic Assessment and plan: Due to cirrhosis and liver dysfunction, monitor INR level (7) Hepatitis B Current Visit: No Status: Chronic Assessment and plan: Chronic Qualifiers: Viral hepatitis chronicity: chronic Hepatic coma status: without hepatic coma Hepatitis delta agent presence: without delta-agent Qualified Code(s): B18.1 - Chronic viral hepatitis B without delta-agent (8) Thrombocytopenia Current Visit: No Status: Chronic Assessment and plan: Due to cirrhosis. 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 Qualifiers: Hepatic cirrhosis type: unspecified hepatic cirrhosis Qualified Code(s): K74.60 - Unspecified cirrhosis of liver - Time Spent With Patient Greater than 35 minutes - Subjective Interval history: Patient is a 56-year-old male admitted as a hepatic encephalopathy. His past medical history is significant for cirrhosis due to R41 antitrypsin deficiency, COPD, CAD, diabetes. Patient was seen and examined. He is still drowsy, but awake alert, can slowly answer my questions, no nausea, no vomiting. No further fever, vital signs generally stable. GI consult and a palliative care consult appreciated. Recommendation will be followed. - Constitutional Vitals: Temp Pulse Resp BP Pulse Ox 97.8 F 61 16 107/68 99 12/17/16 06:39 12/17/16 06:39 12/17/16 06:39 12/17/16 06:39 12/17/16 06:39 General appearance: Present: disheveled, A&O X 2, mild distress. Absent: answers questions appropriately - Head Head exam: Present: atraumatic, normocephalic - Eye Eye exam: Present: PERRL, conjuntiva pink, sclera anicteric Pupils: Present: PERRL - Neck Neck exam general surgery: Present: supple, trachea midline. Absent: lymphadenopathy - Respiratory Respiratory exam: Present: CTAB. Absent: accessory muscle use, rales, rhonchi, wheezes - Cardiovascular Cardiovascular exam: Present: RRR, +S1, +S2. Absent: diastolic murmur, gallop, rubs, systolic murmur - GI/Abdominal GI/Abdominal exam: Present: distended, normal bowel sounds, soft, no peritoneal signs. Absent: tenderness - Extremities Exam Extremities exam: Present: warm, radial pulses palpable and symetrical. Absent : calf tenderness, cyanotic, pedal edema - Neurological Exam Neurological exam: Present: CN II-XII intact, oriented X3, no focal deficits. Absent: pronater drift, facial droop, speech deficit - Skin Skin exam: Present: dry, intact Internal Medicine: Result - Labs CBC & Chem 7: 12/17/16 04:20 12/17/16 04:20 Labs: Short CBC 12/17/16 Range/Units 04:20 WBC 4.5 (4.3-11.1) K/mcL Hgb 8.0 L (12.9-16.9) g/dL Hct 23.7 L (37.5-50.1) % Plt Count 82 L (140-400) K/mcL Neutrophils # 2.7 (1.6-8.9) K/mcL BMP 12/17/16 04:20 Sodium 137 Potassium 3.7 Chloride 108 Carbon Dioxide 25 BUN 21 Creatinine 0.78 Glucose 124 H Calcium 8.2 L Liver Function 12/17/16 Range/Units 04:20 Total Bilirubin 0.9 (0.2-1.2) mg/dL AST 48 H (5-34) Units/L ALT 18 (0-55) Units/L Alkaline Phosphatase 107 (38-126) Units/L Albumin 2.5 L (3.5-5.0) g/dL - ABG Interpretation ABG results: ABG ABG pH 7.39 pH Units (7.32-7.45) 12/16/16 23:30 ABG pCO2 49 mmHg (35-45) H 12/16/16 23:30 ABG pO2 67 mmHg (85-104) L 12/16/16 23:30 ABG O2 Saturation 93 % (95-98) L 12/16/16 23:30 PT/INR, D-dimer PT 21.7 Seconds (9.4-12.1) H 12/17/16 04:20 Consult Discharge Plan - Plan Referrals: Tiny Santo DO [Primary Care Provider] -
--- NOTE | 2016-12-17 16:13 | Electrocardiograph Report ---
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
[2016-12-18] MEDS: MethylPREDNISolone 40 MG/ML VIAL IVP SCH (00:21)
[2016-12-18] MEDS: Piperacillin/Tazobactam 3.375 GM in D5% in Water (Mini-Bag+) 100 ML IVPB SCH (00:26)
[2016-12-18 04:08] LABS: Alanine Aminotransferase 16 Units/L (0-55); Albumin 3.5 g/dL (3.5-5.0); Albumin/Globulin Ratio 0.8 (1.1-2.2); Alkaline Phosphatase 84 Units/L (38-126); Aspartate Amino Transferase 38 Units/L (5-34); BUN/Creatinine Ratio 21 (6-26); Bilirubin,Total 1.6 mg/dL (0.2-1.2); Blood Urea Nitrogen 20 mg/dL (8-26); Calcium 8.8 mg/dL (8.6-10.8); Carbon Dioxide 24 mEq/L (19-29); Chloride 105 mEq/L (98-109); Globulin 4.2 g/dL (2.4-3.5); Glucose 134 mg/dL (70-99); Osmolality,Calculated 289 (280-300); Potassium 4.4 mEq/L (3.5-4.5); Sodium 137 mEq/L (136-145); Total Protein 7.7 g/dL (6.0-8.3); eGFR For African Americans > 60 (> 60); eGFR For Non-African Americans > 60 (> 60)
[2016-12-18 04:42] LABS: Eosinophils % 0.2 %; Mean Corpuscular Hemoglobin 31.5 pg (28.0-33.3)
[2016-12-18 04:44] LABS: Hematocrit 20.2 % (37.5-50.1); Hemoglobin 6.8 g/dL (12.9-16.9); Immature Granulocytes % 0.2 % (0-4); Immature Platelets 4.5 % (1.1-6.1); Lymphocytes # 0.5 K/mcL (0.6-4.6); Lymphocytes % 9.3 %; Mean Corpuscular HGB Conc 33.7 g/dL (31.6-35.5); Mean Corpuscular Volume 93.5 fL (83.0-100.0); Mean Platelet Volume 11.2 fL (9.4-12.4); Monocytes # 0.2 K/mcL (0.0-1.3); Monocytes % 3.3 %; Neutrophils # 4.2 K/mcL (1.6-8.9); Red Blood Count 2.16 M/mcL (4.19-5.50); Red Cell Distribution Width 15.4 % (11.5-14.5)
[2016-12-18 04:57] LABS: Platelet Count 62 K/mcL (140-400)
[2016-12-18 04:58] LABS: Hypochromasia Present (Not Present)
[2016-12-18 04:59] LABS: Platelet Estimate Decreased (Normal); Polychromasia 1+ (Not Present)
[2016-12-18] MEDS: Vancomycin 1,500 MG in D5% in Water 250 ML IVPB SCH (06:10)
[2016-12-18] MEDS: *HR* OxyCODONE Immed Rel 15 MG TABLET PO PRN ×4 (07:05→23:46)
[2016-12-18] MEDS: Pregabalin 25 MG CAPSULE PO SCH ×2 (07:41→20:23)
[2016-12-18] MEDS: Zinc Sulfate 220 MG CAPSULE PO SCH (07:41)
[2016-12-18] MEDS: Furosemide 40 MG TABLET PO SCH (07:41)
[2016-12-18] MEDS: Magnesium Oxide 400 MG TABLET PO SCH ×2 (07:41→20:22)
[2016-12-18] MEDS: Lactulose Oral Soln 20 GM/30 ML UDC PO SCH ×3 (07:42→20:38)
[2016-12-18] MEDS: Pantoprazole 40 MG VIAL IVP SCH (07:42)
[2016-12-18] MEDS: Insulin LISPRO 300 UNITS/3 ML VIAL SQ SCH ×4 (07:43→20:38)
--- NOTE | 2016-12-18 10:59 | Internal Med Progress Note ---
Date of Encounter: 12/18/16 Time of Encounter: 09:00 - Assessment and plan (1) Hepatic encephalopathy Current Visit: Yes Status: Chronic Assessment and plan: We will continue lactulose and rifaximin. Keep with 2-4 BM daily. Zinc supplement. Ammonia Down to 26. GI consult on case and recommendations will be followed. Patient is at high risk because of his has acute altered mental status. (2) Wrist-2-xiabchlqnmc deficiency Current Visit: Yes Status: Chronic Assessment and plan: Patient has alpha-1 antitrypsin infusion as outpatient (3) Ascites Current Visit: No Status: Acute Assessment and plan: Due to cirrhosis. Paracentesis periodically. Check by US THIS TIME, not drainable. Qualifiers: Ascites type: other type Qualified Code(s): R18.8 - Other ascites (4) COPD exacerbation Current Visit: No Status: Acute Assessment and plan: Patient had no wheezing now. We will continue nebulizer when necessary. DC steroid (5) DVT prophylaxis Current Visit: No Status: Acute Assessment and plan: EPCD (6) Elevated INR Current Visit: No Status: Chronic Assessment and plan: Due to cirrhosis and liver dysfunction, monitor INR level (7) Hepatitis B Current Visit: No Status: Chronic Assessment and plan: Chronic Qualifiers: Viral hepatitis chronicity: chronic Hepatic coma status: without hepatic coma Hepatitis delta agent presence: without delta-agent Qualified Code(s): B18.1 - Chronic viral hepatitis B without delta-agent (8) Thrombocytopenia Current Visit: No Status: Chronic Assessment and plan: Due to cirrhosis. 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 Qualifiers: Hepatic cirrhosis type: unspecified hepatic cirrhosis Qualified Code(s): K74.60 - Unspecified cirrhosis of liver (11) Anemia Current Visit: No Status: Chronic Assessment and plan: Hemoglobin 6.8. blood loss due to varicosis versus dilutional because of albumin infusion. Vital signs stable now. Will give 2 units of PRBC. GI is on case. Qualifiers: Anemia type: unspecified type Qualified Code(s): D64.9 - Anemia, unspecified - Time Spent With Patient Greater than 35 minutes - Subjective Interval history: Patient is a 56-year-old male admitted as a hepatic encephalopathy. His past medical history is significant for cirrhosis due to R41 antitrypsin deficiency, COPD, CAD, diabetes. Patient was seen and examined. He is more awake and alert today than yesterday. Still easily fall asleep, can slowly answer my questions, no nausea , no vomiting. No further fever, vital signs generally stable. Hemoglobin dropped to 6.8. Patient has history of esophageal vein varicosis and GI bleeding. Hemoglobin drop considering GI bleeding or dilutional (patient was given IV albumin). Will give him 2 units of PRBC . GI consult is on case . Blood culture is negative, will DC antibiotics. Ammonia gets down to 26, patient has good bowel movement. - Constitutional Vitals: Temp Pulse Resp BP Pulse Ox 97.7 F 70 16 107/63 98 12/18/16 06:58 12/18/16 06:58 12/18/16 08:07 12/18/16 08:07 12/18/16 08:07 General appearance: Present: disheveled, A&O X 3, no acute distress. Absent: answers questions appropriately - Head Head exam: Present: atraumatic, normocephalic - Eye Eye exam: Present: PERRL, conjuntiva pink, sclera anicteric Pupils: Present: PERRL - Neck Neck exam general surgery: Present: supple, trachea midline. Absent: lymphadenopathy - Respiratory Respiratory exam: Present: CTAB. Absent: accessory muscle use, rales, rhonchi, wheezes - Cardiovascular Cardiovascular exam: Present: RRR, +S1, +S2. Absent: diastolic murmur, gallop, rubs, systolic murmur - GI/Abdominal GI/Abdominal exam: Present: distended (Mild distended belly), normal bowel sounds, soft, no peritoneal signs. Absent: tenderness - Extremities Exam Extremities exam: Present: warm, radial pulses palpable and symetrical. Absent : calf tenderness, cyanotic, pedal edema - Neurological Exam Neurological exam: Present: CN II-XII intact, oriented X3, no focal deficits. Absent: pronater drift, facial droop, speech deficit - Skin Skin exam: Present: dry, intact Internal Medicine: Result - Labs CBC & Chem 7: 12/18/16 04:35 12/18/16 03:40 Labs: Short CBC 12/18/16 Range/Units 04:35 WBC 4.8 (4.3-11.1) K/mcL Hgb 6.8 L (12.9-16.9) g/dL Hct 20.2 L (37.5-50.1) % Plt Count 62 L (140-400) K/mcL Neutrophils # 4.2 (1.6-8.9) K/mcL BMP 12/18/16 03:40 Sodium 137 Potassium 4.4 Chloride 105 Carbon Dioxide 24 BUN 20 Creatinine 0.96 Glucose 134 H Calcium 8.8 Liver Function 12/18/16 Range/Units 03:40 Total Bilirubin 1.6 H D (0.2-1.2) mg/dL AST 38 H (5-34) Units/L ALT 16 (0-55) Units/L Alkaline Phosphatase 84 (38-126) Units/L Albumin 3.5 D (3.5-5.0) g/dL - ABG Interpretation ABG results: ABG ABG pH 7.39 pH Units (7.32-7.45) 12/16/16 23:30 ABG pCO2 49 mmHg (35-45) H 12/16/16 23:30 ABG pO2 67 mmHg (85-104) L 12/16/16 23:30 ABG O2 Saturation 93 % (95-98) L 12/16/16 23:30 PT/INR, D-dimer PT 21.7 Seconds (9.4-12.1) H 12/17/16 04:20 - VTE Documentation of Mechanical Device: Intermittent pneumatic compression device Consult Discharge Plan - Plan Referrals: Tiny Santo DO [Primary Care Provider] -
[2016-12-18] MEDS ORDERED: 0.9 % Sodium Chloride 250 ML ONE ×2 (11:26→15:38)
[2016-12-18] MEDS ORDERED: Insulin LISPRO 300 UNITS/3 ML VIAL SQ SCH (21:44)
[2016-12-19 04:25] LABS: Basophils % 0.1 %
[2016-12-19 04:27] LABS: Eosinophils # 0.1 K/mcL (0.0-0.6); Eosinophils % 1.9 %; Hematocrit 24.9 % (37.5-50.1); Hemoglobin 8.3 g/dL (12.9-16.9); Immature Granulocytes % 0.3 % (0-4); Immature Platelets 5.2 % (1.1-6.1); Lymphocytes # 0.9 K/mcL (0.6-4.6); Lymphocytes % 13.1 %; Mean Corpuscular HGB Conc 33.3 g/dL (31.6-35.5); Mean Corpuscular Hemoglobin 31.2 pg (28.0-33.3); Mean Corpuscular Volume 93.6 fL (83.0-100.0); Mean Platelet Volume 11.2 fL (9.4-12.4); Monocytes # 0.7 K/mcL (0.0-1.3); Monocytes % 10.4 %; Prothrombin Time 22.2 Seconds (9.4-12.1); Red Blood Count 2.66 M/mcL (4.19-5.50); Red Cell Distribution Width 15.9 % (11.5-14.5); Segmented Neutrophils % 74.2 %
[2016-12-19 04:32] LABS: Neutrophils # 5.1 K/mcL (1.6-8.9); Platelet Count 67 K/mcL (140-400)
[2016-12-19 04:51] LABS: Alanine Aminotransferase 16 Units/L (0-55); Albumin/Globulin Ratio 0.7 (1.1-2.2); Alkaline Phosphatase 85 Units/L (38-126); Aspartate Amino Transferase 35 Units/L (5-34); BUN/Creatinine Ratio 25 (6-26); Bilirubin,Total 1.6 mg/dL (0.2-1.2); Blood Urea Nitrogen 19 mg/dL (8-26); Calcium 8.8 mg/dL (8.6-10.8); Carbon Dioxide 27 mEq/L (19-29); Chloride 104 mEq/L (98-109); Globulin 4.2 g/dL (2.4-3.5); Glucose 94 mg/dL (70-99); Osmolality,Calculated 280 (280-300); Sodium 134 mEq/L (136-145); Total Protein 7.2 g/dL (6.0-8.3); eGFR For African Americans > 60 (> 60); eGFR For Non-African Americans > 60 (> 60)
[2016-12-19] MEDS: Insulin LISPRO 300 UNITS/3 ML VIAL SQ SCH ×4 (08:17→21:41)
[2016-12-19] MEDS: Furosemide 40 MG TABLET PO SCH (09:26)
[2016-12-19] MEDS: Pregabalin 25 MG CAPSULE PO SCH ×2 (09:26→21:39)
[2016-12-19] MEDS: Zinc Sulfate 220 MG CAPSULE PO SCH (09:26)
[2016-12-19] MEDS: *HR* OxyCODONE Immed Rel 15 MG TABLET PO PRN ×4 (09:26→22:38)
[2016-12-19] MEDS: Magnesium Oxide 400 MG TABLET PO SCH ×2 (09:27→21:40)
[2016-12-19] MEDS: Lactulose Oral Soln 20 GM/30 ML UDC PO SCH ×3 (09:27→21:42)
[2016-12-19] MEDS: Pantoprazole 40 MG VIAL IVP SCH (09:27)
--- NOTE | 2016-12-19 10:04 | Internal Med Progress Note ---
Date of Encounter: 12/19/16 Time of Encounter: 09:00 - Assessment and plan (1) Hepatic encephalopathy Current Visit: Yes Status: Chronic Assessment and plan: We will continue lactulose and rifaximin. Keep with 2-4 BM daily. Zinc supplement. Ammonia 57 today. GI consult on case and recommendations will be followed. Patient is at high risk because of his has acute altered mental status. (2) Xucux-0-syeaqrqdntd deficiency Current Visit: Yes Status: Chronic Assessment and plan: Patient has alpha-1 antitrypsin infusion as outpatient (3) Ascites Current Visit: No Status: Acute Assessment and plan: Due to cirrhosis. Paracentesis periodically. Checked by US THIS TIME, not drainable. Qualifiers: Ascites type: other type Qualified Code(s): R18.8 - Other ascites (4) COPD exacerbation Current Visit: No Status: Acute Assessment and plan: Patient had no wheezing now. We will continue nebulizer when necessary. (5) DVT prophylaxis Current Visit: No Status: Acute Assessment and plan: EPCD (6) Elevated INR Current Visit: No Status: Chronic Assessment and plan: Due to cirrhosis and liver dysfunction, monitor INR level (7) Hepatitis B Current Visit: No Status: Chronic Assessment and plan: Chronic Qualifiers: Viral hepatitis chronicity: chronic Hepatic coma status: without hepatic coma Hepatitis delta agent presence: without delta-agent Qualified Code(s): B18.1 - Chronic viral hepatitis B without delta-agent (8) Thrombocytopenia Current Visit: No Status: Chronic Assessment and plan: Due to cirrhosis. Follow-up platelet level (9) Type II diabetes mellitus Current Visit: No Status: Chronic Assessment and plan: Continue sliding scale coverage Qualifiers: Diabetes mellitus complication status: with unspecified complications Diabetes mellitus care home insulin use: unspecified care home insulin use status Qualified Code(s): E11.8 - Type 2 diabetes mellitus with unspecified complications (10) Cirrhosis of liver with ascites Current Visit: No Status: Chronic Assessment and plan: Due to Alpha-1 antitrypsin deficiency. Qualifiers: Hepatic cirrhosis type: unspecified hepatic cirrhosis Qualified Code(s): K74.60 - Unspecified cirrhosis of liver (11) Anemia Current Visit: No Status: Chronic Assessment and plan: Hemoglobin back to 8.3 after 2 units of PRBC. Vital stable. No black stool. Closely monitor H/H and vitals. Qualifiers: Anemia type: unspecified type Qualified Code(s): D64.9 - Anemia, unspecified - Time Spent With Patient Greater than 35 minutes - Subjective Interval history: Patient is a 56-year-old male admitted as a hepatic encephalopathy. His past medical history is significant for cirrhosis due to R41 antitrypsin deficiency, COPD, CAD, diabetes. Patient was seen and examined. He is awake and alert today but still easily fall asleep, can slowly answer my questions, no nausea, no vomiting. Has mild cough with brownish sputum. No fever, vital signs generally stable. Hemoglobin elevated to 8.3 after transfusion. No black stool. Ammonia level is 57 today, patient has good bowel movement. GI on case. Will continue to closely monitor pt with vitals, ammonia level, and H/H. - Constitutional Vitals: Temp Pulse Resp BP Pulse Ox 97.9 F 60 14 101/61 96 12/19/16 08:15 12/19/16 08:15 12/19/16 08:15 12/19/16 08:15 12/19/16 08:15 General appearance: Present: disheveled, A&O X 3, no acute distress, answers questions appropriately - Head Head exam: Present: atraumatic, normocephalic - Eye Eye exam: Present: PERRL, conjuntiva pink, sclera anicteric Pupils: Present: PERRL - Neck Neck exam general surgery: Present: supple, trachea midline. Absent: lymphadenopathy - Respiratory Respiratory exam: Present: CTAB. Absent: accessory muscle use, rales, rhonchi, wheezes - Cardiovascular Cardiovascular exam: Present: RRR, +S1, +S2. Absent: diastolic murmur, gallop, rubs, systolic murmur - GI/Abdominal GI/Abdominal exam: Present: normal bowel sounds, soft, no peritoneal signs. Absent: distended, tenderness - Extremities Exam Extremities exam: Present: warm, radial pulses palpable and symetrical. Absent : calf tenderness, cyanotic, pedal edema - Neurological Exam Neurological exam: Present: CN II-XII intact, oriented X3, no focal deficits. Absent: pronater drift, facial droop, speech deficit - Skin Skin exam: Present: dry, intact Internal Medicine: Result - Labs CBC & Chem 7: 12/19/16 04:00 12/19/16 04:00 Labs: Short CBC 12/19/16 Range/Units 04:00 WBC 6.8 (4.3-11.1) K/mcL Hgb 8.3 L D (12.9-16.9) g/dL Hct 24.9 L (37.5-50.1) % Plt Count 67 L (140-400) K/mcL Neutrophils # 5.1 (1.6-8.9) K/mcL BMP 12/19/16 04:00 Sodium 134 L Potassium 5.0 H Chloride 104 Carbon Dioxide 27 BUN 19 Creatinine 0.75 Glucose 94 Calcium 8.8 Liver Function 12/19/16 Range/Units 04:00 Total Bilirubin 1.6 H (0.2-1.2) mg/dL AST 35 H (5-34) Units/L ALT 16 (0-55) Units/L Alkaline Phosphatase 85 (38-126) Units/L Albumin 3.0 L (3.5-5.0) g/dL - ABG Interpretation ABG results: ABG ABG pH 7.39 pH Units (7.32-7.45) 12/16/16 23:30 ABG pCO2 49 mmHg (35-45) H 12/16/16 23:30 ABG pO2 67 mmHg (85-104) L 12/16/16 23:30 ABG O2 Saturation 93 % (95-98) L 12/16/16 23:30 PT/INR, D-dimer PT 22.2 Seconds (9.4-12.1) H 12/19/16 04:00 - VTE Documentation of Mechanical Device: Intermittent pneumatic compression device Consult Discharge Plan - Plan Referrals: Tiny Santo DO [Primary Care Provider] -
[2016-12-19] MEDS: ALPRAZolam 1 MG TABLET PO PRN (23:25)
[2016-12-20 03:43] LABS: Eosinophils % 4.9 %; Immature Granulocytes % 0.4 % (0-4); Mean Corpuscular Hemoglobin 31.7 pg (28.0-33.3)
[2016-12-20 03:45] LABS: Basophils % 0.6 %; Eosinophils # 0.3 K/mcL (0.0-0.6); Hematocrit 27.8 % (37.5-50.1); Hemoglobin 9.3 g/dL (12.9-16.9); Immature Platelets 4.4 % (1.1-6.1); Mean Corpuscular HGB Conc 33.5 g/dL (31.6-35.5); Mean Corpuscular Volume 94.9 fL (83.0-100.0); Neutrophils # 3.3 K/mcL (1.6-8.9); Red Blood Count 2.93 M/mcL (4.19-5.50); Red Cell Distribution Width 15.8 % (11.5-14.5); Segmented Neutrophils % 62.1 %
[2016-12-20 03:47] LABS: Monocytes # 0.7 K/mcL (0.0-1.3); Platelet Count 75 K/mcL (140-400)
[2016-12-20 04:01] LABS: Alanine Aminotransferase 19 Units/L (0-55); Albumin 3.1 g/dL (3.5-5.0); Albumin/Globulin Ratio 0.7 (1.1-2.2); Alkaline Phosphatase 99 Units/L (38-126); Aspartate Amino Transferase 41 Units/L (5-34); BUN/Creatinine Ratio 21 (6-26); Bilirubin,Total 1.6 mg/dL (0.2-1.2); Blood Urea Nitrogen 17 mg/dL (8-26); Calcium 9.2 mg/dL (8.6-10.8); Carbon Dioxide 27 mEq/L (19-29); Chloride 101 mEq/L (98-109); Globulin 4.3 g/dL (2.4-3.5); Glucose 103 mg/dL (70-99); Osmolality,Calculated 278 (280-300); Potassium 4.8 mEq/L (3.5-4.5); Sodium 133 mEq/L (136-145); Total Protein 7.4 g/dL (6.0-8.3); eGFR For African Americans > 60 (> 60); eGFR For Non-African Americans > 60 (> 60)
[2016-12-20] MEDS: Insulin LISPRO 300 UNITS/3 ML VIAL SQ SCH ×2 (07:49→11:34)
[2016-12-20] MEDS: Pregabalin 25 MG CAPSULE PO SCH (09:24)
[2016-12-20] MEDS: Pantoprazole 40 MG VIAL IVP SCH (09:24)
[2016-12-20] MEDS: Furosemide 40 MG TABLET PO SCH (09:24)
[2016-12-20] MEDS: Lactulose Oral Soln 20 GM/30 ML UDC PO SCH ×2 (09:25→16:23)
[2016-12-20] MEDS: Magnesium Oxide 400 MG TABLET PO SCH (09:25)
[2016-12-20] MEDS: Zinc Sulfate 220 MG CAPSULE PO SCH (09:25)
[2016-12-20] MEDS: *HR* OxyCODONE Immed Rel 15 MG TABLET PO PRN ×2 (09:27→13:30)
--- NOTE | 2016-12-20 09:52 | Palliative Progress Note ---
Date of Encounter: 12/20/16 Time of Encounter: 09:50 - Assessment and plan (1) Tzvwu-1-mefiteubhkb deficiency Current Visit: Yes Status: Chronic Assessment and plan: Mr. Zelaya received Prolastin infusions as an outpatient. (2) Hepatic encephalopathy Current Visit: Yes Status: Chronic Assessment and plan: Mental status improved. Continue with lactulose. Mr. Zelaya is having bowel movements (3) Ascites Current Visit: No Status: Acute Assessment and plan: Therapeutic paracentesis scheduled regularly on an outpatient basis. Mr. Zelaya was evaluated by interventional radiology upon admission, but there was insufficient fluid. Qualifiers: Ascites type: other type Qualified Code(s): R18.8 - Other ascites (4) Acute exacerbation of chronic obstructive pulmonary disease Current Visit: No Status: Acute Assessment and plan: Management per hospitalist. (5) Chronic pain Current Visit: Yes Status: Acute Assessment and plan: Continue with current treatment. Qualifiers: Chronic pain type: other chronic pain Qualified Code(s): G89.29 - Other chronic pain (6) Goals of care, counseling/discussion Current Visit: No Status: Acute Assessment and plan: Possible discharge today. Awaiting arrival of spouse for further planning. supervisor gate services following. (7) Debility Current Visit: No Status: Chronic Assessment and plan: Continue with activity as tolerated. - Time Spent With Patient Total time spent is greater than 50% in coordination of care (as documented) at patient's floor/unit and/or counseling patient: - Subjective Interval history: Mr. Zelaya is sitting up in bed. He remembers me from prior conversations on Tuesday. He was even able to recall my specialty. Mr. Zelaya declines pain outside of his normal back pain. He declines shortness of breath outside of his every day symptoms. Mr. Zelaya does have a productive cough, but the amount is reduced from this weekend. - Constitutional Vitals: Abnormal lab results RBC 2.93 M/mcL (4.19-5.50) L 12/20/16 03:20 Hgb 9.3 g/dL (12.9-16.9) L 12/20/16 03:20 Hct 27.8 % (37.5-50.1) L 12/20/16 03:20 RDW 15.8 % (11.5-14.5) H 12/20/16 03:20 Plt Count 75 K/mcL (140-400) L 12/20/16 03:20 Platelet Estimate Decreased (Normal) L 12/18/16 04:35 Polychromasia 1+ (Not Present) A 12/18/16 04:35 Hypochromasia Present (Not Present) A 12/18/16 04:35 PT 22.2 Seconds (9.4-12.1) H 12/19/16 04:00 ABG pCO2 49 mmHg (35-45) H 12/16/16 23:30 ABG pO2 67 mmHg (85-104) L 12/16/16 23:30 ABG HCO3 29.7 mEQ/L (21-27) H 12/16/16 23:30 ABG Total CO2 31.2 mEq/L (20-26) H 12/16/16 23:30 ABG O2 Saturation 93 % (95-98) L 12/16/16 23:30 ABG Base Excess 4.2 mEq/L (-2.0 to 3.0) H 12/16/16 23:30 Sodium 133 mEq/L (136-145) L 12/20/16 03:20 Potassium 4.8 mEq/L (3.5-4.5) H 12/20/16 03:20 Glucose 103 mg/dL (70-99) H 12/20/16 03:20 POC Glucose 153 (58-89) H 12/19/16 20:50 Calculated Osmolality 278 (280-300) L 12/20/16 03:20 Magnesium 1.2 mg/dL (1.6-2.6) L 12/17/16 04:20 Total Bilirubin 1.6 mg/dL (0.2-1.2) H 12/20/16 03:20 AST 41 Units/L (5-34) H 12/20/16 03:20 B-Natriuretic Peptide 101 pg/mL (0-100) H 12/16/16 23:16 Albumin 3.1 g/dL (3.5-5.0) L 12/20/16 03:20 Globulin 4.3 g/dL (2.4-3.5) H 12/20/16 03:20 Albumin/Globulin Ratio 0.7 (1.1-2.2) L 12/20/16 03:20 General appearance: Present: cooperative, no acute distress - Eye Eye exam: Present: EOMI - ENT ENT exam: Present: mucous membranes moist - Respiratory Respiratory exam: Present: decreased breath sounds. Absent: respiratory distress, rhonchi, wheezes, tachypnea Additional comments: moist cough - Cardiovascular Cardiovascular exam: Present: RRR - GI/Abdominal GI/Abdominal exam: Present: soft. Absent: tenderness - Expanded Abdominal Exam GI/Abdominal exam: Present: ascites - Additional comments: cornejo catheter remains intact - Extremities Exam Extremities exam: Present: normal inspection. Absent: pedal edema - Neurological Exam Neurological exam: Present: alert, no focal deficits, strengths equal and symetr throughout (generalized weakness) - Psychiatric Psychiatric exam: Present: flat affect. Absent: agitated, anxious - Skin Skin exam: Present: warm Palliative Quality Palliative Quality: Screen for Code Status: Yes (Discussed 12/17/16 with spouse present), Screen for Goals of Care: Yes (Discussed 12/17/16 with spouse present) , Screen for Pain: Yes, If Pain Regimen Started, Initiate Bowel Regimen: NA ( loost BM due to lactulose) Code Status: 12/17/16 02:42 Resuscitation Status: Active [RES] Routine Comment: Resuscitation Status: Full Code - Labs CBC & Chem 7: 12/20/16 03:20 12/20/16 03:20 Labs: Laboratory Results - last 24 hr 12/19/16 12/19/16 12/19/16 11:27 15:33 20:50 WBC RBC Hgb Hct MCV MCH MCHC RDW Plt Count MPV Immature Gran % Seg Neutrophils % Lymphocytes % Monocytes % Eosinophils % Basophils % Neutrophils # Lymphocytes # Monocytes # Eosinophils # Basophils # Immature Plt Fraction Sodium Potassium Chloride Carbon Dioxide BUN Creatinine Est GFR ( Amer) Est GFR (Non-Af Amer) BUN/Creatinine Ratio Glucose POC Glucose 86 102 H 153 H Calculated Osmolality Calcium Total Bilirubin AST ALT Alkaline Phosphatase Ammonia Serum Total Protein Albumin Globulin Albumin/Globulin Ratio 12/20/16 12/20/16 12/20/16 03:20 03:20 03:25 WBC 5.3 RBC 2.93 L Hgb 9.3 L Hct 27.8 L MCV 94.9 MCH 31.7 MCHC 33.5 RDW 15.8 H Plt Count 75 L MPV 11.0 Immature Gran % 0.4 Seg Neutrophils % 62.1 Lymphocytes % 18.0 Monocytes % 14.0 Eosinophils % 4.9 Basophils % 0.6 Neutrophils # 3.3 Lymphocytes # 1.0 Monocytes # 0.7 Eosinophils # 0.3 Basophils # 0.0 Immature Plt Fraction 4.4 Sodium 133 L Potassium 4.8 H Chloride 101 Carbon Dioxide 27 BUN 17 Creatinine 0.81 Est GFR ( Amer) > 60 Est GFR (Non-Af Amer) > 60 BUN/Creatinine Ratio 21 Glucose 103 H POC Glucose Calculated Osmolality 278 L Calcium 9.2 Total Bilirubin 1.6 H AST 41 H ALT 19 Alkaline Phosphatase 99 Ammonia 55 Serum Total Protein 7.4 Albumin 3.1 L Globulin 4.3 H Albumin/Globulin Ratio 0.7 L - ABG Interpretation ABG results: ABG ABG pH 7.39 pH Units (7.32-7.45) 12/16/16 23:30 ABG pCO2 49 mmHg (35-45) H 12/16/16 23:30 ABG pO2 67 mmHg (85-104) L 12/16/16 23:30 ABG O2 Saturation 93 % (95-98) L 12/16/16 23:30 PT/INR, D-dimer PT 22.2 Seconds (9.4-12.1) H 12/19/16 04:00 Consult Discharge Plan - Plan Referrals: Tiny Santo DO [Primary Care Provider] -
[2016-12-20 11:03] VITALS: BP 96/68
[2016-12-20] MEDS: ALPRAZolam 1 MG TABLET PO PRN (11:34)
--- NOTE | 2016-12-20 13:53 | Discharge Summary ---
Date of Encounter: 12/20/16 Time of Encounter: 13:00 - Discharge Diagnosis (1) Hepatic encephalopathy Priority: Primary Status: Chronic (2) Qjooc-7-ftmdtzppcuj deficiency Priority: Secondary Status: Chronic (3) Ascites Priority: Secondary Status: Acute Qualifiers: Ascites type: other type Qualified Code(s): R18.8 - Other ascites (4) COPD exacerbation Priority: Secondary Status: Acute (5) DVT prophylaxis Priority: Secondary Status: Acute (6) Elevated INR Priority: Secondary Status: Chronic (7) Hepatitis B Priority: Secondary Status: Chronic Qualifiers: Viral hepatitis chronicity: chronic Hepatic coma status: without hepatic coma Hepatitis delta agent presence: without delta-agent Qualified Code(s): B18.1 - Chronic viral hepatitis B without delta-agent (8) Thrombocytopenia Priority: Secondary Status: Chronic (9) Type II diabetes mellitus Priority: Secondary Status: Chronic Qualifiers: Diabetes mellitus complication status: with unspecified complications Diabetes mellitus skilled nursing insulin use: unspecified extermination supervisor insulin use status Qualified Code(s): E11.8 - Type 2 diabetes mellitus with unspecified complications (10) Cirrhosis of liver with ascites Priority: Secondary Status: Chronic Qualifiers: Hepatic cirrhosis type: unspecified hepatic cirrhosis Qualified Code(s): K74.60 - Unspecified cirrhosis of liver (11) Anemia Priority: Secondary Status: Chronic Qualifiers: Anemia type: unspecified type Qualified Code(s): D64.9 - Anemia, unspecified - Discharge Medications Home Medications: Amitriptyline [Elavil] 50 mg PO HS 10/06/15 [History] Oxygen 2 - 4 l NS CONT 08/18/16 [History] Vdjrk-5-Kamemznodg Inhibitor [Glassia] 10 mg IV QWEEK 09/18/16 [History] Albuterol Sulfate [Proair Respiclick] 2 puff IH Q4H PRN #1 aer.pow.ba 10/11/16 [ Rx] Alprazolam [Xanax 1 MG Tablet] 0.5 mg PO BID PRN #20 10/11/16 [Rx] Budesonide/Formoterol 160/4.5 [Symbicort 160/4.5] 2 puff IH BID #1 10/11/16 [Rx ] Ipratropium/Albuterol Neb [Duoneb] 3 ml IH Q4HR PRN 30 Days 10/11/16 [Rx] Magnesium Oxide [Mag-Ox] 800 mg PO BID #120 tablet 10/11/16 [Rx] Nadolol [Corgard] 20 mg PO HS #30 tablet 10/11/16 [Rx] Oxycodone HCl 15 mg PO Q4H PRN #15 tablet 10/11/16 [Rx] Pregabalin [Lyrica] 75 mg PO BID #30 capsule 10/11/16 [Rx] Prochlorperazine Maleate [Compazine] 10 mg PO Q6HR PRN #20 10/11/16 [Rx] Rifaximin [Xifaxan] 550 mg PO BID #60 tablet 10/11/16 [Rx] Sucralfate [Carafate] 1 gm PO QID 30 Days 10/11/16 [Rx] Ranitidine HCl [Acid Joiner] 150 mg PO BID 10/17/16 [History] Morphine Sulfate [Morphine Sulfate ER] 30 mg PO DAILY #30 cpmp.24hr 10/21/16 [Rx ] Spironolactone [Aldactone] 100 mg PO BID #60 tablet 10/21/16 [Rx] Pantoprazole Sodium [Protonix] 40 mg PO BID 11/01/16 [History] Lactulose 30 gm PO TID 30 Days 11/08/16 [Rx] Ergocalciferol (VITAMIN D2) [Vitamin D2] 50,000 unit PO QWEEK #7 capsule [Rx] Folic Acid 5 mg PO DAILY #30 tablet 11/20/16 [Rx] Furosemide [Lasix] 40 mg PO DAILY #30 tablet 11/20/16 [Rx] Zinc Sulfate 220 mg PO TID #90 capsule 11/20/16 [Rx] Allergies/Adverse Reactions: Allergies No Known Allergies Allergy (Verified 12/16/16 22:42) Date of admission: 12/17/16 00:33 Primary care physician: Tiny Santo DO Consults: 12/17/16 04:35 Consult to Gastroenterology [CONS] Stat Consulting Provider: Gastroenterology Ellen Reason for Consult: Chirrosis with alpha 1 antitrypsin deficiency. may need EGD Call Completed: No Consult to Palliative Care [CONS] Stat Comment: Consulting Provider: Palliative Care Ellen 12/17/16 05:33 Consult to Interventional Radiology [CONS] Routine Consulting Provider: Radiology Interventional Cols Reason for Consult: patient needs paracentesis Call Completed: No 12/19/16 15:19 Consult to Occupational Therapy [CONS] Routine Comment: Evaluate, develop and implement POC Consult to Physical Therapy [CONS] Routine Comment: Evaluate, develop and implement POC Discharging clinician: Giovanni Price Anticipated date of discharge: 12/20/16 - Patient Status Disposition: Home Health Service Condition: Fair Overall status at discharge: patient is progressing back to baseline - Discharge Instructions Follow Up With: Tiny Santo DO [Primary Care Provider] - - Diet and Activity Activity: as per physical therapy Diet: advance to your usual diet, diabetic diet Interval History: Mr. Zelaya is a 56 year old male with PMHx of GERD, chronic back pain, HTN, HLD , CAD, DM II, acoyp-3-uyebrxtpmzr deficiency, ascites, cirrhosis, COPD (on 2L home oxygen). History was obtained from , who was present in the room. She states that for the past five days, the patient has had increased cough with dark green sputum production. No hemoptysis was noted. The states that the patient is on a transplant list to receive a liver transplant. The patient has chest pain all the time. The pain is present in the middle of his chest. He has fever, chills, and hematuria. The patient has a significant history of ascites, and gets paracentesis done weekly. However, he has canceled his paracentesis appointments for the past several weeks because he could not come to the hospital because of overall weakness. Of note, he has a PICC line that was inserted about two weeks ago. Hospital course: Mr. Zelaya is a 56 year old male admitted for altered mental status and shortness of breath. His ammonia near level is high to 121 on admission. He was treated with antibiotic, lactulose, rifaxamin, nebulizer treatment. Chest x -ray shows interstitial edema, no focal consolidation. After treatment, his mental status is getting better, ammonia level gets down to 55. Patient has one episode of low hemoglobin, which is corrected by transfusion. He has no black stool, hemoglobin is stable after transfusion. His ascites was examined by ultrasound, not drainable. Vitals are stable. I saw and examined the patient today. He is awake alert, oriented 3. No fever , in no acute distress. Lungs are clear, no wheezing. Still complaining some cough but less productive. Will continue lactulose, rifaximin, and zinc supplement. Continue cough syrup for symptoms control. Patient was discharged home with home health and follow-up with GI as outpatient. - Time Spent with Patient Total time spent providing and/or coordinating discharge services: 40 minutes Greater than 30 minutes - Constitutional Vitals: Temp Pulse Resp BP Pulse Ox 98.1 F 96 16 96/68 94 L 12/20/16 11:00 12/20/16 11:00 12/20/16 11:00 12/20/16 11:00 12/20/16 11:00 General appearance: Present: disheveled, A&O X 3, no acute distress, answers questions appropriately - Head Head exam: Present: atraumatic, normocephalic - Eye Eye exam: Present: PERRL, conjuntiva pink, sclera anicteric Pupils: Present: PERRL - Neck Neck exam general surgery: Present: supple, trachea midline. Absent: lymphadenopathy - Respiratory Respiratory exam: Present: CTAB. Absent: accessory muscle use, rales, rhonchi, wheezes - Cardiovascular Cardiovascular exam: Present: RRR, +S1, +S2. Absent: diastolic murmur, gallop, rubs, systolic murmur - GI/Abdominal GI/Abdominal exam: Present: distended (Mild distended), normal bowel sounds, soft, no peritoneal signs. Absent: tenderness - Extremities Exam Extremities exam: Present: warm, radial pulses palpable and symetrical. Absent : calf tenderness, cyanotic, pedal edema - Neurological Exam Neurological exam: Present: CN II-XII intact, oriented X3, no focal deficits. Absent: pronater drift, facial droop, speech deficit - Skin Skin exam: Present: dry, intact - VTE Documentation of Mechanical Device: Intermittent pneumatic compression device
--- NOTE | 2016-12-20 14:05 | Physician Discharge Referral ---
Home Health/Hosp Referral Info Transfer to: Home Health Provider in Charge Post Discharge: PCP - Diagnosis (1) Hepatic encephalopathy Status: Chronic (2) Xxdrq-4-qvhqirwzfsf deficiency Status: Chronic (3) Ascites Status: Acute (4) COPD exacerbation Status: Acute (5) DVT prophylaxis Status: Acute (6) Elevated INR Status: Chronic (7) Hepatitis B Status: Chronic (8) Thrombocytopenia Status: Chronic (9) Type II diabetes mellitus Status: Chronic (10) Cirrhosis of liver with ascites Status: Chronic (11) Anemia Status: Chronic - Respiratory Orders Oxygen / L per min (2-3) Smoking Cessation: Smoking cessation has been advised. For more information, call the [place] Tobacco Quit Line at 1-822-FJLO-NOW. - Services Needed Following services are medically necessary services: Nursing, Home Health Aide, Physical Therapy, Occupational Therapy - Transfer Medications Home Medications: Amitriptyline [Elavil] 50 mg PO HS 10/06/15 [History] Oxygen 2 - 4 l NS CONT 08/18/16 [History] Pjziy-2-Liigxsoptr Inhibitor [Glassia] 10 mg IV QWEEK 09/18/16 [History] Albuterol Sulfate [Proair Respiclick] 2 puff IH Q4H PRN #1 aer.pow.ba 10/11/16 [ Rx] Alprazolam [Xanax 1 MG Tablet] 0.5 mg PO BID PRN #20 10/11/16 [Rx] Budesonide/Formoterol 160/4.5 [Symbicort 160/4.5] 2 puff IH BID #1 10/11/16 [Rx ] Ipratropium/Albuterol Neb [Duoneb] 3 ml IH Q4HR PRN 30 Days 10/11/16 [Rx] Magnesium Oxide [Mag-Ox] 800 mg PO BID #120 tablet 10/11/16 [Rx] Nadolol [Corgard] 20 mg PO HS #30 tablet 10/11/16 [Rx] Oxycodone HCl 15 mg PO Q4H PRN #15 tablet 10/11/16 [Rx] Pregabalin [Lyrica] 75 mg PO BID #30 capsule 10/11/16 [Rx] Prochlorperazine Maleate [Compazine] 10 mg PO Q6HR PRN #20 10/11/16 [Rx] Rifaximin [Xifaxan] 550 mg PO BID #60 tablet 10/11/16 [Rx] Sucralfate [Carafate] 1 gm PO QID 30 Days 10/11/16 [Rx] Ranitidine HCl [Acid Line Construction Superintendent] 150 mg PO BID 10/17/16 [History] Morphine Sulfate [Morphine Sulfate ER] 30 mg PO DAILY #30 cpmp.24hr 10/21/16 [Rx ] Spironolactone [Aldactone] 100 mg PO BID #60 tablet 10/21/16 [Rx] Pantoprazole Sodium [Protonix] 40 mg PO BID 11/01/16 [History] Lactulose 30 gm PO TID 30 Days 11/08/16 [Rx] Ergocalciferol (VITAMIN D2) [Vitamin D2] 50,000 unit PO QWEEK #7 capsule [Rx] Folic Acid 5 mg PO DAILY #30 tablet 11/20/16 [Rx] Furosemide [Lasix] 40 mg PO DAILY #30 tablet 11/20/16 [Rx] Zinc Sulfate 220 mg PO TID #90 capsule 11/20/16 [Rx] Allergies/Adverse Reactions: Allergies No Known Allergies Allergy (Verified 12/16/16 22:42) Certification: Further, I certify that my clinical findings support that this patient is homebound (i.e. absences from home require considerable and taxing effort and are for medical reasons or rastafarian services or infrequently or short duration when for other reasons) because: Homebound Reason: Patient requires assistance of a person or device to safely leave home Attestation: My signature below is to certify that this patient is under my care and that I, or nurse practitioner, or a physician's ophthalmic assistant working with me, has a face-to -face encounter with this patient.
[2016-12-20] MEDS ORDERED: Aminoglycoside Consult 1 EACH MC ONE (17:04)
== END 2016-12-20 17:05 | disposition home health service (06) | DRG 642 ==
LOC: EMEROO 22:41 → 3ANU 12-17 00:33
PROVIDERS: ADMIT Internal Medicine; ATTEND Internal Medicine

== ENCOUNTER 2016-12-28 10:49 | Inpatient (IN) ==
[2016-12-28 11:27] LABS: Basophils % 0.8 %; Eosinophils # 0.3 K/mcL (0.0-0.6); Eosinophils % 6.5 %; Hematocrit 25.8 % (37.5-50.1); Hemoglobin 8.5 g/dL (12.9-16.9); Immature Granulocytes % 0.4 % (0-4); Immature Platelets 2.3 % (1.1-6.1); Lymphocytes % 19.8 %; Mean Corpuscular HGB Conc 32.9 g/dL (31.6-35.5); Mean Corpuscular Hemoglobin 31.6 pg (28.0-33.3); Mean Corpuscular Volume 95.9 fL (83.0-100.0); Mean Platelet Volume 10.2 fL (9.4-12.4); Monocytes # 0.7 K/mcL (0.0-1.3); Monocytes % 14.9 %; Neutrophils # 2.9 K/mcL (1.6-8.9); Platelet Count 108 K/mcL (140-400); Red Blood Count 2.69 M/mcL (4.19-5.50); Red Cell Distribution Width 15.7 % (11.5-14.5); Segmented Neutrophils % 57.6 %
[2016-12-28 11:43] LABS: INR 1.9; Prothrombin Time 20.9 Seconds (9.4-12.1)
[2016-12-28 11:45] LABS: Activated Partial Thrombo Time 33.6 Seconds (26.0-36.0)
[2016-12-28 11:46] LABS: Bilirubin,Urine Negative (Negative); Blood,Urine Negative (Negative); Clarity,Urine Clear (Clear); Color,Urine Dark Yellow (Yellow); Glucose,Urine (UA) Normal (Normal); Ketones,Urine Trace mg/dL (Negative); Leukocyte Esterase,Urine Trace (Negative); Nitrite,Urine Negative (Negative); PH,Urine 5.5 pH Units (5.0-8.0); Protein,Urine Negative (Neg-Trace); Specific Gravity,Urine 1.021 (1.010-1.025); Urobilinogen,Urine Normal (Normal)
--- NOTE | 2016-12-28 11:49 | Emergency Department Note ---
Disposition Clinical Impression: Hepatic encephalopathy, HCAP (healthcare-associated pneumonia) Disposition: Admitted As Inpatient Condition: Serious Referrals: Tiny Santo DO [Primary Care Provider] - Forms: Work/School Release, ED Satisfaction Letter Altered Mental Status HPI - General Chief Complaint: ED General Medical Stated Complaint: Lethargic, cough Source: patient, family Limitations: no limitations Nursing Notes Reviewed: Yes Vital Signs Reviewed: Yes - History of Present Illness HPI Narrative: Patient presents with complaint of altered mental status. Family medical bedsidethe patient has symptoms for past 3 days. Patient decreased appetite and is had similar to past. History is limited secondary to patient's mental status. Patient was seen by IR and the transfer patient was emergency department for evaluation due to the increase lethargy - Related Data Home Medications Medication Instructions Recorded Confirmed Amitriptyline [Elavil] 50 mg PO HS 10/06/15 12/17/16 Oxygen 2 - 4 l NS CONT 08/18/16 12/17/16 Huyvr-6-[id number] Inhibitor 10 mg IV QWEEK 09/18/16 12/17/16 [Glassia] Ranitidine HCl [Acid White Metal Corrosion Proofer] 150 mg PO BID 10/17/16 12/17/16 Pantoprazole Sodium [Protonix] 40 mg PO BID 11/01/16 12/17/16 Previous Rx's Medication Instructions Recorded Albuterol Sulfate [Proair 2 puff IH Q4H PRN #1 aer.pow.ba 10/11/16 Respiclick] Alprazolam [Xanax 1 MG Tablet] 0.5 mg PO BID PRN #20 10/11/16 Budesonide/Formoterol 160/4.5 2 puff IH BID #1 10/11/16 [Symbicort 160/4.5] Ipratropium/Albuterol Neb [Duoneb] 3 ml IH Q4HR PRN 30 Days 10/11/16 Magnesium Oxide [Mag-Ox] 800 mg PO BID #120 tablet 10/11/16 Nadolol [Corgard] 20 mg PO HS #30 tablet 10/11/16 Oxycodone HCl 15 mg PO Q4H PRN #15 tablet 10/11/16 Pregabalin [Lyrica] 75 mg PO BID #30 capsule 10/11/16 Prochlorperazine Maleate 10 mg PO Q6HR PRN #20 10/11/16 [Compazine] Rifaximin [Xifaxan] 550 mg PO BID #60 tablet 10/11/16 Sucralfate [Carafate] 1 gm PO QID 30 Days 10/11/16 Morphine Sulfate [Morphine Sulfate 30 mg PO DAILY #30 cpmp.24hr 10/21/16 ER] Spironolactone [Aldactone] 100 mg PO BID #60 tablet 10/21/16 Lactulose 30 gm PO TID 30 Days 11/08/16 Ergocalciferol (VITAMIN D2) 50,000 unit PO QWEEK #7 capsule 11/20/16 [Vitamin D2] Folic Acid 5 mg PO DAILY #30 tablet 11/20/16 Furosemide [Lasix] 40 mg PO DAILY #30 tablet 11/20/16 Zinc Sulfate 220 mg PO TID #90 capsule 11/20/16 GuaiFENesin Liq [Robitussin Liq] 200 mg PO Q6HR 7 Days 12/20/16 Allergies Allergy/AdvReac Type Severity Reaction Status Date / Time No Known Allergies Allergy Verified 12/16/16 22:42 All systems ED: reviewed and negative except as stated. Past Medical History - Past Medical History Source: patient Medical history: Reports: cirrhosis, COPD, diabetes, GI bleed, hepatitis, hyperlipidemia, hypertension, myocardial infarction, renal disease Surgical history: Reports: other Psychiatric history: Reports: no psych history - Social History Smoking Status: Former smoker Smokeless Tobacco Status: No Alcohol use: Reports: none Drug use: Reports: none Physical Exam - General Limitations: altered mental status General appearance: lethargic - Head Head exam: atraumatic, normocephalic, normal inspection - Eye Eye exam: Present: normal appearance, PERRL, EOMI - ENT ENT exam: mucous membranes dry - Neck Neck exam: Absent: lymphadenopathy, thyromegaly - Chest Chest inspection: Present: normal inspection, symmetric chest wall rise - Respiratory Respiratory exam: Present: normal lung sounds bilaterally - Cardiovascular Cardiovascular exam: Present: regular rate, normal rhythm, normal heart sounds - Abdominal Exam Abdominal exam: Present: soft, Non-Tender. Absent: tenderness, distention, guarding, rebound, rigidity - Extremities Exam Extremities exam: Present: normal inspection, full ROM. Absent: tenderness, pedal edema - Back Exam Back exam: Present: normal inspection, full ROM. Absent: tenderness - Neurological Exam Neurological exam: Present: other (limited secondary to mental status) - Psychiatric Psychiatric exam: Present: other (limited secondary to mental status) - Skin Skin exam: Present: warm, dry, intact, normal color Course Vital Signs Temperature 98.3 F 12/28/16 10:55 Pulse Rate 64 12/28/16 10:55 Respiratory Rate 8 12/28/16 10:55 Blood Pressure 123/78 12/28/16 10:55 O2 Sat by Pulse Oximetry 98 12/28/16 10:55 Temperature 98.3 F 12/28/16 10:55 Pulse Rate 64 12/28/16 10:55 Respiratory Rate 8 12/28/16 10:55 Blood Pressure 123/78 12/28/16 10:55 O2 Sat by Pulse Oximetry 97 12/28/16 11:15 Oxygen Delivery Oxygen Delivery Room Air Altered Mental Status - Differential Diagnosis Likely: alcoholic intoxication, altered mental status, delirium, hypoglycemia, hyponatremia, subarachnoid hemorrhage - Lab Data Lab results reviewed: Yes I reviewed the patient's lab results. Result diagrams: 12/28/16 11:14 12/28/16 11:14 Lab Results 12/28/16 12/28/16 12/28/16 Range/Units 11:14 11:14 11:14 WBC 5.0 (4.3-11.1) K/mcL RBC 2.69 L (4.19-5.50) M/mcL Hgb 8.5 L (12.9-16.9) g/dL Hct 25.8 L (37.5-50.1) % MCV 95.9 (83.0-100.0) fL MCH 31.6 (28.0-33.3) pg MCHC 32.9 (31.6-35.5) g/dL RDW 15.7 H (11.5-14.5) % Plt Count 108 L (140-400) K/mcL MPV 10.2 (9.4-12.4) fL Immature Gran % 0.4 (0-4) % Seg Neutrophils % 57.6 % Lymphocytes % 19.8 % Monocytes % 14.9 % Eosinophils % 6.5 % Basophils % 0.8 % Neutrophils # 2.9 (1.6-8.9) K/mcL Lymphocytes # 1.0 (0.6-4.6) K/mcL Monocytes # 0.7 (0.0-1.3) K/mcL Eosinophils # 0.3 (0.0-0.6) K/mcL Basophils # 0.0 (0.0-0.2) K/mcL Immature Plt Fraction 2.3 (1.1-6.1) % PT 20.9 H (9.4-12.1) Seconds INR 1.9 APTT 33.6 (26.0-36.0) Seconds Sodium 137 (136-145) mEq/L Potassium 3.7 (3.5-4.5) mEq/L Chloride 103 (98-109) mEq/L Carbon Dioxide 26 (19-29) mEq/L BUN 18 (8-26) mg/dL Creatinine 0.82 (0.72-1.25) mg/dL Est GFR ( Amer) > 60 (> 60) Est GFR (Non-Af Amer) > 60 (> 60) BUN/Creatinine Ratio 22 (6-26) Glucose 109 H (70-99) mg/dL Calculated Osmolality 286 (280-300) Lactic Acid (0.5-2.2) mmol/L Calcium 8.9 (8.6-10.8) mg/dL Total Bilirubin 1.4 H (0.2-1.2) mg/dL AST 47 H (5-34) Units/L ALT 18 (0-55) Units/L Alkaline Phosphatase 104 (38-126) Units/L Ammonia (18-72) mcmol/L Troponin I (0-0.03) ng/mL B-Natriuretic Peptide (0-100) pg/mL Serum Total Protein 7.6 (6.0-8.3) g/dL Albumin 2.7 L (3.5-5.0) g/dL Globulin 4.9 H (2.4-3.5) g/dL Albumin/Globulin Ratio 0.6 L (1.1-2.2) Urine Color (Yellow) Urine Clarity (Clear) Urine pH (5.0-8.0) pH Units Ur Specific [place] (1.010-1.025) Urine Protein (Neg-Trace) mg/dL Urine Glucose (UA) (Normal) mg/dL Urine Ketones (Negative) mg/dL Urine Blood (Negative) Urine Nitrite (Negative) Urine Bilirubin (Negative) Urine Urobilinogen (Normal) mg/dL Ur Leukocyte Esterase (Negative) Urine Microscopic RBC (0-3) per hpf Urine Microscopic WBC (0-3) per hpf Ur Squamous Epith Cells (None-Few) per lpf Urine Bacteria (None-Few) per hpf Hyaline Casts (None-Few) per lpf Ur Culture Indicated? (NO) 12/28/16 12/28/16 12/28/16 Range/Units 11:14 11:14 11:14 WBC (4.3-11.1) K/mcL RBC (4.19-5.50) M/mcL Hgb (12.9-16.9) g/dL Hct (37.5-50.1) % MCV (83.0-100.0) fL MCH (28.0-33.3) pg MCHC (31.6-35.5) g/dL RDW (11.5-14.5) % Plt Count (140-400) K/mcL MPV (9.4-12.4) fL Immature Gran % (0-4) % Seg Neutrophils % % Lymphocytes % % Monocytes % % Eosinophils % % Basophils % % Neutrophils # (1.6-8.9) K/mcL Lymphocytes # (0.6-4.6) K/mcL Monocytes # (0.0-1.3) K/mcL Eosinophils # (0.0-0.6) K/mcL Basophils # (0.0-0.2) K/mcL Immature Plt Fraction (1.1-6.1) % PT (9.4-12.1) Seconds INR APTT (26.0-36.0) Seconds Sodium (136-145) mEq/L Potassium (3.5-4.5) mEq/L Chloride (98-109) mEq/L Carbon Dioxide (19-29) mEq/L BUN (8-26) mg/dL Creatinine (0.72-1.25) mg/dL Est GFR ( Amer) (> 60) Est GFR (Non-Af Amer) (> 60) BUN/Creatinine Ratio (6-26) Glucose (70-99) mg/dL Calculated Osmolality (280-300) Lactic Acid 1.6 (0.5-2.2) mmol/L Calcium (8.6-10.8) mg/dL Total Bilirubin (0.2-1.2) mg/dL AST (5-34) Units/L ALT (0-55) Units/L Alkaline Phosphatase (38-126) Units/L Ammonia 78 H (18-72) mcmol/L Troponin I (0-0.03) ng/mL B-Natriuretic Peptide 41 (0-100) pg/mL Serum Total Protein (6.0-8.3) g/dL Albumin (3.5-5.0) g/dL Globulin (2.4-3.5) g/dL Albumin/Globulin Ratio (1.1-2.2) Urine Color (Yellow) Urine Clarity (Clear) Urine pH (5.0-8.0) pH Units Ur Specific [place] (1.010-1.025) Urine Protein (Neg-Trace) mg/dL Urine Glucose (UA) (Normal) mg/dL Urine Ketones (Negative) mg/dL Urine Blood (Negative) Urine Nitrite (Negative) Urine Bilirubin (Negative) Urine Urobilinogen (Normal) mg/dL Ur Leukocyte Esterase (Negative) Urine Microscopic RBC (0-3) per hpf Urine Microscopic WBC (0-3) per hpf Ur Squamous Epith Cells (None-Few) per lpf Urine Bacteria (None-Few) per hpf Hyaline Casts (None-Few) per lpf Ur Culture Indicated? (NO) 12/28/16 12/28/16 Range/Units 11:14 11:25 WBC (4.3-11.1) K/mcL RBC (4.19-5.50) M/mcL Hgb (12.9-16.9) g/dL Hct (37.5-50.1) % MCV (83.0-100.0) fL MCH (28.0-33.3) pg MCHC (31.6-35.5) g/dL RDW (11.5-14.5) % Plt Count (140-400) K/mcL MPV (9.4-12.4) fL Immature Gran % (0-4) % Seg Neutrophils % % Lymphocytes % % Monocytes % % Eosinophils % % Basophils % % Neutrophils # (1.6-8.9) K/mcL Lymphocytes # (0.6-4.6) K/mcL Monocytes # (0.0-1.3) K/mcL Eosinophils # (0.0-0.6) K/mcL Basophils # (0.0-0.2) K/mcL Immature Plt Fraction (1.1-6.1) % PT (9.4-12.1) Seconds INR APTT (26.0-36.0) Seconds Sodium (136-145) mEq/L Potassium (3.5-4.5) mEq/L Chloride (98-109) mEq/L Carbon Dioxide (19-29) mEq/L BUN (8-26) mg/dL Creatinine (0.72-1.25) mg/dL Est GFR ( Amer) (> 60) Est GFR (Non-Af Amer) (> 60) BUN/Creatinine Ratio (6-26) Glucose (70-99) mg/dL Calculated Osmolality (280-300) Lactic Acid (0.5-2.2) mmol/L Calcium (8.6-10.8) mg/dL Total Bilirubin (0.2-1.2) mg/dL AST (5-34) Units/L ALT (0-55) Units/L Alkaline Phosphatase (38-126) Units/L Ammonia (18-72) mcmol/L Troponin I 0.01 (0-0.03) ng/mL B-Natriuretic Peptide (0-100) pg/mL Serum Total Protein (6.0-8.3) g/dL Albumin (3.5-5.0) g/dL Globulin (2.4-3.5) g/dL Albumin/Globulin Ratio (1.1-2.2) Urine Color Dark Yellow (Yellow) Urine Clarity Clear (Clear) Urine pH 5.5 (5.0-8.0) pH Units Ur Specific [place] 1.021 (1.010-1.025) Urine Protein Negative (Neg-Trace) mg/dL Urine Glucose (UA) Normal (Normal) mg/dL Urine Ketones Trace H (Negative) mg/dL Urine Blood Negative (Negative) Urine Nitrite Negative (Negative) Urine Bilirubin Negative (Negative) Urine Urobilinogen Normal (Normal) mg/dL Ur Leukocyte Esterase Trace H (Negative) Urine Microscopic RBC 0-3 (0-3) per hpf Urine Microscopic WBC 0-3 (0-3) per hpf Ur Squamous Epith Cells Moderate H (None-Few) per lpf Urine Bacteria None Seen (None-Few) per hpf Hyaline Casts None Seen (None-Few) per lpf Ur Culture Indicated? YES A (NO) - Radiology Data Radiology results reviewed: Yes I reviewed the patient's radiology results. Chest X-Ray 12/28/16 10:56 IMPRESSION: Worsening left basilar airspace disease, favor pneumonia D/ / Jovon Manrique MD / Jovon Manrique MD Interpreting Provider: Jovon Manrique MD - EKG Data EKG attestation: Yes I reviewed and interpreted this EKG. EKG results narrative: unchanged from previous EKG shows normal: sinus rhythm Rate: normal TPA Checklist - LKW: 3-4.5 hrs Add. Contraindications Patient/family understanding: The patient/family members have been counseled and understood the risk, benefit , and alternatives of treatment. Critical Care Time Total Critical Care Time: 30 Attestation: Critical care performed: Time is exclusive of separately billable procedures. Time includes: direct patient care, patient reassessment, coordination of patient care, interpretation of data (laboratory data, radiology data, and respiratory data), review of patient's medical records, medical consultation and documentation of patient care. Procedures included in critical care time: Procedures excluded from critical care time:
[2016-12-28 11:50] LABS: Bacteria,Urine None Seen per hpf (None-Few); Hyaline Casts,Urine None Seen per lpf (None-Few); RBC,Urine 0-3 per hpf (0-3); Squamous Epithelial Cell,Urine Moderate per lpf (None-Few); WBC,Urine 0-3 per hpf (0-3)
[2016-12-28 12:04] LABS: Alanine Aminotransferase 18 Units/L (0-55); Albumin 2.7 g/dL (3.5-5.0); Albumin/Globulin Ratio 0.6 (1.1-2.2); Alkaline Phosphatase 104 Units/L (38-126); Aspartate Amino Transferase 47 Units/L (5-34); BUN/Creatinine Ratio 22 (6-26); Bilirubin,Total 1.4 mg/dL (0.2-1.2); Blood Urea Nitrogen 18 mg/dL (8-26); Calcium 8.9 mg/dL (8.6-10.8); Carbon Dioxide 26 mEq/L (19-29); Chloride 103 mEq/L (98-109); Globulin 4.9 g/dL (2.4-3.5); Glucose 109 mg/dL (70-99); Osmolality,Calculated 286 (280-300); Potassium 3.7 mEq/L (3.5-4.5); Sodium 137 mEq/L (136-145); Total Protein 7.6 g/dL (6.0-8.3); eGFR For African Americans > 60 (> 60); eGFR For Non-African Americans > 60 (> 60)
[2016-12-28] MEDS ORDERED: Piperacillin/Tazobactam 3.375 GM in D5% in Water (Mini-Bag+) 100 ML IVPB ONE (12:40)
[2016-12-28] MEDS ORDERED: Vancomycin 1,500 MG in D5% in Water 250 ML IVPB ONE (12:41)
[2016-12-28] MEDS ORDERED: Lactulose Oral Soln 20 GM/30 ML UDC PO ONE (12:41)
[2016-12-28] MEDS ORDERED: Ibuprofen 400 MG TABLET PO PRN (13:48)
[2016-12-28] MEDS ORDERED: Ondansetron 4 MG/2 ML VIAL IVP PRN (13:48)
[2016-12-28] MEDS: 0.9 % Sodium Chloride 1,000 ML IVC SCH (15:33)
[2016-12-28] MEDS: Lactulose Oral Soln 20 GM/30 ML UDC PO SCH ×5 (15:33→21:50)
--- NOTE | 2016-12-28 15:42 | Internal Med History&Physical ---
Date of Encounter: 12/28/16 Time of Encounter: 13:00 Assessment and Plan (1) Cirrhosis of liver with ascites Current visit: Yes Status: Acute Patient with history of hepatitis B infection and antitrypsin deficiency. Her past respiratory ascites with weekly paracentesis. We are holding home dose of furosemide and spironolactone due to dehydration from infection. paracentesis by IR ordered for the morning to rule out SBP. Qualifiers: Hepatic cirrhosis type: unspecified hepatic cirrhosis Qualified Code(s): K74.60 - Unspecified cirrhosis of liver (2) Hepatic encephalopathy Current visit: Yes Status: Acute Acute hepatic encephalopathy. Likely triggered by pneumonia, dehydration and hypomagnesemia. Continue treating underlying infection. Increase lactulose every 2 hours for 3- 4 bowel movements per day. Replete mag levels.continue home dose of rifaximin. bedrest. fall precautions. (3) Pneumonia Current visit: No Status: Acute Presented with productive cough. Chest x-ray revealed left lower lobe airspace opacity. Normal lactic acid. Normal WBC. Patient is at risk for pseudomonas and MRSA given history of recent hospitalization in 12/20/2016. Continue IV vancomycin and IV Zosyn. Follow-up blood culture. Gentle IV fluid hydration. Qualifiers: Pneumonia type: due to unspecified organism Laterality: left Lung location: lower lobe of lung Qualified Code(s): J18.1 - Lobar pneumonia, unspecified organism (4) Hypomagnesemia Current visit: No Status: Acute replete (5) Chronic respiratory failure Current visit: No Status: Chronic Patient is a 2 L oxygen via nasal cannula. At baseline. Continue nebulizations and Qualifiers: Respiratory failure complication: hypoxia Qualified Code(s): J96.11 - Chronic respiratory failure with hypoxia (6) Diastolic heart failure Current visit: Yes Status: Acute Compensated. Qualifiers: Heart failure chronicity: chronic Qualified Code(s): I50.32 - Chronic diastolic (congestive) heart failure (7) CAD (coronary artery disease) Current visit: No Status: Chronic stable Qualifiers: Coronary Disease-Associated Artery/Lesion type: [place] artery [place] vs. transplanted heart: [place] heart Associated angina: angina presence unspecified Qualified Code(s): I25.10 - Atherosclerotic heart disease of [place] coronary artery without angina pectoris (8) Chronic anemia Current visit: No Status: Acute hgb at 8.5. No signs of bleeding. Continue to monitor. (9) Chronic hepatitis B virus infection Current visit: No Status: Chronic (10) Protein calorie malnutrition Current visit: No Status: Chronic (11) Yhjau-4-qnaprecjxhw deficiency Current visit: No Status: Chronic Internal Medicine - H&P: HPI Chief complaint: Changes in mental status for the past 3 days Admitted From: Home Plans for Post Hospital Care: Home History of present illness: Mr. Zelaya is a 56 year old male with past medical history of liver cirrhosis complicated by refractory ascites with weekly paracentesis, COPD on 2 L of oxygen at home, diabetes, hypertension, and CAD. patient was hospitalized 10 days ago in our hospital and was treated for COPD exacerbation and hepatic encephalopathy. Patient is lethargic but he arouses easily to verbal stimuli and answers all questions. Patient went to his weekly paracentesis this morning and was sent to our ED because of somnolence. For the past 3 days, the patient noticed that he was sleeping more and had episodes of productive cough of a yellow sputum. No fever. No chills. No chest pain. No bleeding. No abdominal pain. No nausea. No vomiting. Chronic abdominal distention. No lower extremity edema. No diarrhea. He admits being complaint with all his medications. In our ED, he received IV Vancomycin and IV Zosyn for HCAP (CXR showed left- sided infiltrate). CT of the head was negative. Past Med Surg Social Fam HX - Past Medical History Medical history: cirrhosis, COPD, diabetes, GI bleed, hepatitis, hyperlipidemia , hypertension, myocardial infarction, renal disease Psychiatric history: no psych history - Past Surgical History Surgical History: other - Social History Smoking Status: Former smoker Smokeless Tobacco Status: No Alcohol use: none Drug use: none - Family History Mother Living Status: Hx Family Cardiac Disorders: Yes Hx Family Respiratory Disorders: Yes Father Living Status: Hx Family Cardiac Disorders: No Hx Family Respiratory Disorders: No Hx Family Cancer: No Hx Family GI Disorders: No Hx Family Endocrine Disorder: No Hx Family Neuromuscular Disorders: No Hx Family Neurologic Disorders: No Hx Family HEENT Disorders: No Hx Family Autoimmune Disorders: No Internal Medicine - H&P: Meds Amitriptyline [Elavil] 50 mg PO HS 10/06/15 [History] Oxygen 2 - 4 l NS CONT 08/18/16 [History] Wehrt-1-Kxxcmjdxvy Inhibitor [Glassia] 10 mg IV QWEEK 09/18/16 [History] Albuterol Sulfate [Proair Respiclick] 2 puff IH Q4H PRN #1 aer.pow.ba 10/11/16 [ Rx] Alprazolam [Xanax 1 MG Tablet] 0.5 mg PO BID PRN #20 10/11/16 [Rx] Budesonide/Formoterol 160/4.5 [Symbicort 160/4.5] 2 puff IH BID #1 10/11/16 [Rx ] Ipratropium/Albuterol Neb [Duoneb] 3 ml IH Q4HR PRN 30 Days 10/11/16 [Rx] Magnesium Oxide [Mag-Ox] 800 mg PO BID #120 tablet 10/11/16 [Rx] Nadolol [Corgard] 20 mg PO HS #30 tablet 10/11/16 [Rx] Oxycodone HCl 15 mg PO Q4H PRN #15 tablet 10/11/16 [Rx] Pregabalin [Lyrica] 75 mg PO BID #30 capsule 10/11/16 [Rx] Prochlorperazine Maleate [Compazine] 10 mg PO Q6HR PRN #20 10/11/16 [Rx] Rifaximin [Xifaxan] 550 mg PO BID #60 tablet 10/11/16 [Rx] Sucralfate [Carafate] 1 gm PO QID 30 Days 10/11/16 [Rx] Ranitidine HCl [Acid Employee Relation Manager] 150 mg PO BID 10/17/16 [History] Spironolactone [Aldactone] 100 mg PO BID #60 tablet 10/21/16 [Rx] Pantoprazole Sodium [Protonix] 40 mg PO BID 11/01/16 [History] Lactulose 30 gm PO TID 30 Days 11/08/16 [Rx] Furosemide [Lasix] 40 mg PO DAILY #30 tablet 11/20/16 [Rx] Ondansetron HCl [Zofran] 4 mg PO AD PRN 12/28/16 [History] Allergies No Known Allergies Allergy (Verified 12/16/16 22:42) All Systems PM: A 10-system review of systems was performed and is negative for pertinent findings except as documented above in the HPI. - Constitutional Vitals: Temp Pulse Resp BP Pulse Ox 97.4 F L 63 18 134/86 97 12/28/16 15:00 12/28/16 15:00 12/28/16 15:00 12/28/16 15:00 12/28/16 15:00 General appearance: Present: cooperative, A&O X 3, pleasant, no acute distress Exam: Ill-looking appearance (pale-mac skin). Lethargic but he arouses slowly to verbal stimuli. He answers all questions and follow some commands. Oriented 3. Positive asterixis sign. - Eye Eye exam: Present: PERRL, sclera anicteric - Neck Neck exam general surgery: Present: supple, trachea midline. Absent: lymphadenopathy - Respiratory Respiratory exam: Present: rales (crackles at left lung base. Right lung field is clear to auscultation.) - Cardiovascular Cardiovascular exam: Present: RRR - GI/Abdominal GI/Abdominal exam: Present: distended - Extremities Exam Extremities exam: Absent: pedal edema - Back Exam Back exam: Absent: CVA tenderness (L), CVA tenderness (R) - Skin Skin exam: Absent: rash Additional comments: philippe nevus on chest Internal Med - H&P Results - Labs CBC & Chem 7: 12/28/16 11:14 12/28/16 11:14
[2016-12-28] MEDS ORDERED: Magnesium Sulfate 1 GM in D5% in Water 100 ML IVPB STA (15:47)
[2016-12-28] MEDS ORDERED: Magnesium Sulfate 2 GM in D5% in Water 100 ML IVPB STA (15:47)
[2016-12-28] MEDS ORDERED: Albumin 25% 25gram/100mL 25 GM/100 ML IV.SOLN IVPB SCH (16:00)
[2016-12-28] MEDS: Ipratropium/Albuterol Neb 3 ML IH SCH ×2 (16:00→20:59)
[2016-12-28] MEDS ORDERED: *HR* Heparin 5,000 UNIT/ML VIAL SQ SCH (18:00)
[2016-12-28] MEDS: *HR* OxyCODONE Immed Rel 5 MG TABLET PO PRN (18:56)
[2016-12-29] MEDS: Ipratropium/Albuterol Neb 3 ML IH SCH ×6 (00:10→20:25)
[2016-12-29] MEDS: Piperacillin/Tazobactam 3.375 GM in D5% in Water (Mini-Bag+) 100 ML IVPB SCH ×4 (00:34→19:32)
[2016-12-29] MEDS: Lactulose Oral Soln 20 GM/30 ML UDC PO SCH ×12 (00:34→23:59)
[2016-12-29] MEDS: Vancomycin 1,500 MG in D5% in Water 250 ML IVPB SCH ×2 (00:35→17:42)
[2016-12-29] MEDS: *HR* OxyCODONE Immed Rel 5 MG TABLET PO PRN (00:45)
[2016-12-29 05:39] LABS: Basophils % 0.8 %; Eosinophils # 0.2 K/mcL (0.0-0.6); Eosinophils % 5.1 %; Hematocrit 23.9 % (37.5-50.1); Hemoglobin 7.9 g/dL (12.9-16.9); Immature Granulocytes % 0.2 % (0-4); Lymphocytes # 1.1 K/mcL (0.6-4.6); Lymphocytes % 21.9 %; Mean Corpuscular HGB Conc 33.1 g/dL (31.6-35.5); Mean Corpuscular Hemoglobin 31.2 pg (28.0-33.3); Mean Corpuscular Volume 94.5 fL (83.0-100.0); Mean Platelet Volume 10.6 fL (9.4-12.4); Monocytes # 0.7 K/mcL (0.0-1.3); Monocytes % 14.1 %; Neutrophils # 2.8 K/mcL (1.6-8.9); Red Blood Count 2.53 M/mcL (4.19-5.50); Red Cell Distribution Width 15.3 % (11.5-14.5); Segmented Neutrophils % 57.9 %
[2016-12-29 05:40] LABS: Platelet Count 92 K/mcL (140-400)
[2016-12-29 05:48] LABS: Alanine Aminotransferase 16 Units/L (0-55); Albumin 2.7 g/dL (3.5-5.0); Albumin/Globulin Ratio 0.6 (1.1-2.2); Alkaline Phosphatase 89 Units/L (38-126); Aspartate Amino Transferase 43 Units/L (5-34); BUN/Creatinine Ratio 18 (6-26); Bilirubin,Total 1.8 mg/dL (0.2-1.2); Blood Urea Nitrogen 14 mg/dL (8-26); Calcium 8.5 mg/dL (8.6-10.8); Carbon Dioxide 27 mEq/L (19-29); Chloride 102 mEq/L (98-109); Globulin 4.2 g/dL (2.4-3.5); Glucose 98 mg/dL (70-99); Magnesium 1.7 mg/dL (1.6-2.6); Osmolality,Calculated 280 (280-300); Phosphorous 3.1 mg/dL (2.3-4.7); Potassium 3.6 mEq/L (3.5-4.5); Sodium 135 mEq/L (136-145); Total Protein 6.9 g/dL (6.0-8.3); eGFR For African Americans > 60 (> 60); eGFR For Non-African Americans > 60 (> 60)
--- NOTE | 2016-12-29 10:11 | Internal Med Progress Note ---
<Brett Li - Last Filed: 12/29/16 16:58> Date of Encounter: 12/29/16 Time of Encounter: 08:45 - Assessment and plan (1) Cirrhosis of liver with ascites Current Visit: Yes Status: Acute Assessment and plan: -Patient has history of Hep B and antitrypsin deficiency and Weekly paracentesis. -Presented with AMS, imaging showed possible pneumonia, labs revealed elevated ammonia. -There was concern for SBP and paracentesis ordered by IR for culture and albumin given for hepatorenal syndrome. However, no peritoneal signs or fluid distension, so SBP low on differential. -Elevated ammonia that is trending down and patients symptoms resolving on lactulose. AMS likely due to hepatic encephalopathy. -Patient denies alcohol use over the past year. Ativan ordered PRN as precaution for alcohol with drawl. -Blood cultures ordered. Plan -Continue current treatment including lactulose. -Redraw labs, including ammonia. No need to redraw Tuesday if trending down and patients symptoms improving. Qualifiers: Hepatic cirrhosis type: unspecified hepatic cirrhosis Qualified Code(s): K74.60 - Unspecified cirrhosis of liver (2) Hepatic encephalopathy Current Visit: Yes Status: Acute Assessment and plan: -See above (3) Hepatitis B Current Visit: No Status: Chronic Qualifiers: Viral hepatitis chronicity: chronic Hepatic coma status: without hepatic coma Hepatitis delta agent presence: without delta-agent Qualified Code(s): B18.1 - Chronic viral hepatitis B without delta-agent (4) Pneumonia Current Visit: No Status: Acute Assessment and plan: -Presented with productive cough. Chest x-ray revealed left lower lobe airspace opacity. Normal lactic acid. Normal white blood cell count. Plan -Continue abx and breathing treatments. Qualifiers: Pneumonia type: due to unspecified organism Laterality: left Lung location: lower lobe of lung Qualified Code(s): J18.1 - Lobar pneumonia, unspecified organism (5) Chronic anemia Current Visit: No Status: Acute Assessment and plan: -Chronic Anemia of unknown cause. patient denies any bleeding Plan -Iron studies, B12, Folate to assess anemia cause -Transfuse if <7 1 PRBC (6) Xoflf-[id number]-[id number] deficiency Current Visit: No Status: Chronic (7) CHF (congestive heart failure) Current Visit: No Status: Chronic Assessment and plan: -Head of bed needs to be elevated at 30 degrees most of time due to CHF. This is not feasible in an ordinary bed. Qualifiers: Congestive heart failure type: unspecified congestive heart failure type Congestive heart failure chronicity: acute Qualified Code(s): I50.9 - Heart failure, unspecified - Subjective Interval history: Patient is resting calmly in bed. Able to answer questions appropriately. Alert and oriented 3. He has no questions or concerns. Admits to SOB, that is chronic. Denies headache, blurry vision, dizziness, confusion, chest pain, abdominal pain, urinary complaints, blood in the stool or urine. Lives at home with his and son. Denies alcohol use. Has no questions or concerns at this time. Paracentesis last week, no complications. - Constitutional Vitals: Temp Pulse Resp BP Pulse Ox 98.3 F 68 16 104/64 96 12/29/16 06:51 12/29/16 06:51 12/29/16 08:24 12/29/16 06:51 12/29/16 08:24 General appearance: Present: cooperative, A&O X 3, pleasant, no acute distress - Head Head exam: Present: atraumatic, normocephalic - Eye Eye exam: Present: PERRL, conjuntiva pink, sclera anicteric Pupils: Present: PERRL - Respiratory Respiratory exam: Present: wheezes - Cardiovascular Cardiovascular exam: Present: RRR, +S1, +S2, systolic murmur. Absent: diastolic murmur, gallop, rubs - GI/Abdominal GI/Abdominal exam: Present: normal bowel sounds, soft, no peritoneal signs. Absent: distended, tenderness - Extremities Exam Extremities exam: Absent: tenderness - Psychiatric Psychiatric exam: Present: normal affect, normal mood Internal Medicine: Result - Labs CBC & Chem 7: 12/29/16 05:20 12/29/16 05:20 Labs: Short CBC 12/29/16 Range/Units 05:20 WBC 4.8 (4.3-11.1) K/mcL Hgb 7.9 L (12.9-16.9) g/dL Hct 23.9 L (37.5-50.1) % Plt Count 92 L (140-400) K/mcL Neutrophils # 2.8 (1.6-8.9) K/mcL BMP 12/29/16 05:20 Sodium 135 L Potassium 3.6 Chloride 102 Carbon Dioxide 27 BUN 14 Creatinine 0.80 Glucose 98 Calcium 8.5 L Liver Function 12/29/16 Range/Units 05:20 Total Bilirubin 1.8 H (0.2-1.2) mg/dL AST 43 H (5-34) Units/L ALT 16 (0-55) Units/L Alkaline Phosphatase 89 (38-126) Units/L Albumin 2.7 L (3.5-5.0) g/dL - ABG Interpretation ABG results: PT/INR, D-dimer PT 20.9 Seconds (9.4-12.1) H 12/28/16 11:14 Consult Discharge Plan - Plan Instructions: Heart Failure (DC), Cirrhosis (DC), Cirrhosis (GEN), Urinary Tract Infection in Men (DC), Diabetes Mellitus Type 2 in Adults (DC), Viral Hepatitis B (DC), Viral Hepatitis B (GEN), Chronic Obstructive Pulmonary Disease (DC), Chronic Hypertension (DC), Abdominal Paracentesis (DC), Ascites ( DC), Ascites (GEN), Viral Hepatitis B, Floatlight Loading Supervisor (GEN) Additional Instructions: Follow-up appointments: If there is not an appointment listed below, please call your physician and schedule a follow-up appointment. If you have congestive heart failure and your symptoms return, make an appointment with your physician. Symptoms: If your condition changes or you experience any of the following symptoms, notify your physician immediately: Unusual or worsening pain, fever, persistent nausea and vomiting, bleeding, increase in swelling (especially in your legs), sudden weight gain, extreme dizziness, chest pain, increased drainage or redness from a wound or incision. Go to the emergency department if you experience a problem with breathing. Weights: If you have a history of swelling or shortness of breath, weigh yourself daily and notify your physician if you have a weight gain of two or more pounds in one day or 5 or more pounds in a week. If you experience any of the warning signs for stroke: Sudden numbness or weakness of the face, arm or leg; especially on one side of the body, sudden confusion, trouble speaking or understanding, sudden trouble seeing in one or both eyes, sudden trouble walking, dizziness, loss of balance or coordination, sudden sever headache with no cause; Call 911 or go to the emergency room. Stroke is a medical emergency. Some risk factors for stroke: Age, cigarette smoking, diabetes, excessive alcohol consumption, family history , high blood pressure, overweight, physical inactivity, prior stroke, heart attack, diagnosis of carotid artery stenosis or other artery disease. If you smoke, STOP: Smoking or tobacco use significantly increases your risk of heart and lung disease. Your chance of disease greatly increases if you continue to smoke. For more information, call the [place] tobacco quit line for smoking cessation 8-882- QUIT-NOW ( ) Referrals: Tiny Santo DO [Primary Care Provider] - 01/04/17 2:00 pm <Jamal Orr - Last Filed: 12/29/16 18:10> Date of Encounter: 12/29/16 - Constitutional Vitals: Temp Pulse Resp BP Pulse Ox 97.8 F 79 18 109/75 97 12/29/16 16:00 12/29/16 16:00 12/29/16 16:14 12/29/16 16:00 12/29/16 16:14 Internal Medicine: Result - Labs CBC & Chem 7: 12/29/16 05:20 12/29/16 05:20 Labs: Short CBC 12/29/16 Range/Units 05:20 WBC 4.8 (4.3-11.1) K/mcL Hgb 7.9 L (12.9-16.9) g/dL Hct 23.9 L (37.5-50.1) % Plt Count 92 L (140-400) K/mcL Neutrophils # 2.8 (1.6-8.9) K/mcL BMP 12/29/16 05:20 Sodium 135 L Potassium 3.6 Chloride 102 Carbon Dioxide 27 BUN 14 Creatinine 0.80 Glucose 98 Calcium 8.5 L Liver Function 12/29/16 Range/Units 05:20 Total Bilirubin 1.8 H (0.2-1.2) mg/dL AST 43 H (5-34) Units/L ALT 16 (0-55) Units/L Alkaline Phosphatase 89 (38-126) Units/L Albumin 2.7 L (3.5-5.0) g/dL - ABG Interpretation ABG results: PT/INR, D-dimer PT 20.9 Seconds (9.4-12.1) H 12/28/16 11:14 - Attending Attestation I examined this patient and my medical decision-making was reviewed with the [employer]/PA/Advanced Practice Nurse/Resident Physician. I agree with the documented findings, disposition and treatment plan as described except to the extent set forth below.
--- NOTE | 2016-12-29 11:30 | Electrocardiograph Report ---
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
[2016-12-29] MEDS: Pantoprazole 40 MG VIAL IVP SCH (12:30)
[2016-12-29] MEDS ORDERED: *HR* LORazepam 2 MG/ML VIAL IVP PRN (16:54)
[2016-12-29] MEDS: Pregabalin 75 MG CAPSULE PO SCH (20:06)
[2016-12-29] MEDS: 0.9 % Sodium Chloride 1,000 ML IVC SCH (20:06)
[2016-12-29] MEDS: ALPRAZolam 0.5 MG TABLET PO PRN (20:06)
[2016-12-29 20:20] LABS: Hematocrit 23.9 % (37.5-50.1); Hemoglobin 8.2 g/dL (12.9-16.9)
[2016-12-29] MEDS ORDERED: Pregabalin 75 MG CAPSULE PO SCH (21:00)
[2016-12-30] MEDS: Vancomycin 1,500 MG in D5% in Water 250 ML IVPB SCH (00:07)
[2016-12-30] MEDS: Piperacillin/Tazobactam 3.375 GM in D5% in Water (Mini-Bag+) 100 ML IVPB SCH ×4 (00:16→23:16)
[2016-12-30] MEDS: Ipratropium/Albuterol Neb 3 ML IH SCH ×8 (00:21→23:00)
[2016-12-30] MEDS: Lactulose Oral Soln 20 GM/30 ML UDC PO SCH ×11 (01:29→23:16)
[2016-12-30] MEDS ORDERED: Vancomycin 1,250 MG in D5% in Water 250 ML IVPB SCH (04:30)
[2016-12-30 04:43] LABS: Basophils % 0.6 %; Eosinophils # 0.2 K/mcL (0.0-0.6); Eosinophils % 2.7 %; Hematocrit 23.6 % (37.5-50.1); Hemoglobin 7.8 g/dL (12.9-16.9); Immature Granulocytes % 0.3 % (0-4); Lymphocytes # 1.2 K/mcL (0.6-4.6); Lymphocytes % 17.7 %; Mean Corpuscular HGB Conc 33.1 g/dL (31.6-35.5); Mean Corpuscular Hemoglobin 31.2 pg (28.0-33.3); Mean Corpuscular Volume 94.4 fL (83.0-100.0); Mean Platelet Volume 10.2 fL (9.4-12.4); Monocytes # 0.9 K/mcL (0.0-1.3); Monocytes % 13.9 %; Neutrophils # 4.3 K/mcL (1.6-8.9); Platelet Count 100 K/mcL (140-400); Red Cell Distribution Width 15.6 % (11.5-14.5); Segmented Neutrophils % 64.8 %
[2016-12-30 04:51] LABS: Albumin 2.5 g/dL (3.5-5.0); BUN/Creatinine Ratio 10 (6-26); Blood Urea Nitrogen 9 mg/dL (8-26); Calcium 8.2 mg/dL (8.6-10.8); Carbon Dioxide 26 mEq/L (19-29); Chloride 102 mEq/L (98-109); Glucose 136 mg/dL (70-99); Magnesium 1.5 mg/dL (1.6-2.6); Osmolality,Calculated 279 (280-300); Potassium 3.4 mEq/L (3.5-4.5); Sodium 134 mEq/L (136-145); eGFR For African Americans > 60 (> 60); eGFR For Non-African Americans > 60 (> 60)
[2016-12-30] MEDS ORDERED: Aminoglycoside Consult 1 EACH MC ONE (08:32)
--- NOTE | 2016-12-30 09:55 | Internal Med Progress Note ---
<Brett Li - Last Filed: 12/30/16 17:03> Date of Encounter: 12/30/16 Time of Encounter: 08:00 - Assessment and plan (1) Cirrhosis of liver with ascites Current Visit: Yes Status: Acute Assessment and plan: 12/29 -Patient has history of Hep B and antitrypsin deficiency and Weekly paracentesis. -Presented with AMS, imaging showed possible pneumonia, labs revealed elevated ammonia. -There was concern for SBP and paracentesis ordered by IR for culture and albumin given for hepatorenal syndrome. However, no peritoneal signs or fluid distension, so SBP low on differential. -Elevated ammonia that is trending down and patients symptoms resolving on lactulose. AMS likely due to hepatic encephalopathy. -Patient denies alcohol use over the past year. Ativan ordered PRN as precaution for alcohol with drawl. -Blood cultures ordered. Plan -Continue current treatment including lactulose. -Redraw labs, including ammonia. No need to redraw Tuesday if trending down and patients symptoms improving. 2/2 -Abdomen slightly more distended. Denies abdominal pain -GI on boards Plan -Following GI recommendations per medication changes Qualifiers: Hepatic cirrhosis type: unspecified hepatic cirrhosis Qualified Code(s): K74.60 - Unspecified cirrhosis of liver (2) Hepatic encephalopathy Current Visit: Yes Status: Acute Assessment and plan: -See above (3) Hepatitis B Current Visit: No Status: Chronic Qualifiers: Viral hepatitis chronicity: chronic Hepatic coma status: without hepatic coma Hepatitis delta agent presence: without delta-agent Qualified Code(s): B18.1 - Chronic viral hepatitis B without delta-agent (4) Pneumonia Current Visit: No Status: Acute Assessment and plan: 12/29 -Presented with productive cough. Chest x-ray revealed left lower lobe airspace opacity. Normal lactic acid. Normal white blood cell count. Plan -Continue abx and breathing treatments. 2/2 -Patient feels like his breathing has improved -Does have a productive cough -Sputum culture order to evaluate Plan - Qualifiers: Pneumonia type: due to unspecified organism Laterality: left Lung location: lower lobe of lung Qualified Code(s): J18.1 - Lobar pneumonia, unspecified organism (5) Chronic anemia Current Visit: No Status: Acute Assessment and plan: -Chronic Anemia of unknown cause. patient denies any bleeding -Patient hgb measured <7. Redraw revealed hgb >8.0. Cancelled transfusion. Continue to monitor -Iron studies reveal iron deficiency anemia. -B12, Folate obtained Plan -Transfuse if <7 1 PRBC -Hgb improving and patient is eating now. No need for iron supplementation at this time. (6) Mzpoj-7-dcxhcyrseoc deficiency Current Visit: No Status: Chronic (7) CHF (congestive heart failure) Current Visit: No Status: Chronic Qualifiers: Congestive heart failure type: unspecified congestive heart failure type Congestive heart failure chronicity: acute Qualified Code(s): I50.9 - Heart failure, unspecified - Subjective Interval history: Patient is resting calmly in bed. Able to answer questions appropriately. Alert and oriented 3. He has no questions or concerns. Admits to SOB, that is chronic. Denies headache, blurry vision, dizziness, confusion, chest pain, abdominal pain, urinary complaints, blood in the stool or urine. Lives at home with his and son. Denies alcohol use. Has no questions or concerns at this time. Paracentesis last week, no complications. - Constitutional Vitals: Temp Pulse Resp BP Pulse Ox 97.7 F 80 18 108/69 94 L 12/30/16 07:00 12/30/16 07:00 12/30/16 08:20 12/30/16 07:00 12/30/16 08:20 General appearance: Present: cooperative, A&O X 3, pleasant, no acute distress - Head Head exam: Present: atraumatic, normocephalic - Eye Eye exam: Present: PERRL, conjuntiva pink, sclera anicteric Pupils: Present: PERRL - Cardiovascular Cardiovascular exam: Present: RRR. Absent: diastolic murmur, systolic murmur - GI/Abdominal GI/Abdominal exam: Present: normal bowel sounds, soft, no peritoneal signs. Absent: distended, tenderness Additional comments: Large appearing. More fluid compared to yesterday. Not distended though - Neurological Exam Neurological exam: Present: alert, oriented X3, no focal deficits. Absent: altered - Psychiatric Psychiatric exam: Present: normal affect, normal mood - Other Additional findings: Small umbilical hernia, and nonincarcerated. Internal Medicine: Result - Labs CBC & Chem 7: 12/30/16 16:09 12/30/16 04:30 Labs: Short CBC 12/29/16 12/30/16 Range/Units 18:05 04:30 WBC 6.7 (4.3-11.1) K/mcL Hgb 8.2 L 7.8 L (12.9-16.9) g/dL Hct 23.9 L 23.6 L (37.5-50.1) % Plt Count 100 L (140-400) K/mcL Neutrophils # 4.3 (1.6-8.9) K/mcL BMP 12/30/16 04:30 Sodium 134 L Potassium 3.4 L Chloride 102 Carbon Dioxide 26 BUN 9 Creatinine 0.91 Glucose 136 H Calcium 8.2 L Liver Function 12/30/16 Range/Units 04:30 Albumin 2.5 L (3.5-5.0) g/dL - ABG Interpretation ABG results: PT/INR, D-dimer PT 20.9 Seconds (9.4-12.1) H 12/28/16 11:14 Consult Discharge Plan - Plan Instructions: Heart Failure (DC), Cirrhosis (DC), Cirrhosis (GEN), Urinary Tract Infection in Men (DC), Diabetes Mellitus Type 2 in Adults (DC), Viral Hepatitis B (DC), Viral Hepatitis B (GEN), Chronic Obstructive Pulmonary Disease (DC), Chronic Hypertension (DC), Abdominal Paracentesis (DC), Ascites ( DC), Ascites (GEN), Viral Hepatitis B, Department Director (GEN) Additional Instructions: Follow-up appointments: If there is not an appointment listed below, please call your physician and schedule a follow-up appointment. If you have congestive heart failure and your symptoms return, make an appointment with your physician. Symptoms: If your condition changes or you experience any of the following symptoms, notify your physician immediately: Unusual or worsening pain, fever, persistent nausea and vomiting, bleeding, increase in swelling (especially in your legs), sudden weight gain, extreme dizziness, chest pain, increased drainage or redness from a wound or incision. Go to the emergency department if you experience a problem with breathing. Weights: If you have a history of swelling or shortness of breath, weigh yourself daily and notify your physician if you have a weight gain of two or more pounds in one day or 5 or more pounds in a week. If you experience any of the warning signs for stroke: Sudden numbness or weakness of the face, arm or leg; especially on one side of the body, sudden confusion, trouble speaking or understanding, sudden trouble seeing in one or both eyes, sudden trouble walking, dizziness, loss of balance or coordination, sudden sever headache with no cause; Call 911 or go to the emergency room. Stroke is a medical emergency. Some risk factors for stroke: Age, cigarette smoking, diabetes, excessive alcohol consumption, family history , high blood pressure, overweight, physical inactivity, prior stroke, heart attack, diagnosis of carotid artery stenosis or other artery disease. If you smoke, STOP: Smoking or tobacco use significantly increases your risk of heart and lung disease. Your chance of disease greatly increases if you continue to smoke. For more information, call the [place] quit line for smoking cessation 2-176- QUIT-NOW ( ) Referrals: Tiny Santo DO [Primary Care Provider] - 01/04/17 2:00 pm <Jamal Orr - Last Filed: 12/30/16 18:13> Date of Encounter: 12/30/16 - Constitutional Vitals: Temp Pulse Resp BP Pulse Ox 97.7 F 79 18 129/70 96 12/30/16 07:00 12/30/16 15:00 12/30/16 16:48 12/30/16 15:00 12/30/16 16:48 Internal Medicine: Result - Labs CBC & Chem 7: 12/30/16 16:09 12/30/16 04:30 Labs: Short CBC 12/29/16 12/30/16 12/30/16 Range/Units 18:05 04:30 14:30 WBC 6.7 (4.3-11.1) K/mcL Hgb 8.2 L 7.8 L 6.2 L D (12.9-16.9) g/dL Hct 23.9 L 23.6 L 18.3 L (37.5-50.1) % Plt Count 100 L (140-400) K/mcL Neutrophils # 4.3 (1.6-8.9) K/mcL 12/30/16 Range/Units 16:09 WBC (4.3-11.1) K/mcL Hgb 8.2 L D (12.9-16.9) g/dL Hct 24.5 L (37.5-50.1) % Plt Count (140-400) K/mcL Neutrophils # (1.6-8.9) K/mcL BMP 12/30/16 04:30 Sodium 134 L Potassium 3.4 L Chloride 102 Carbon Dioxide 26 BUN 9 Creatinine 0.91 Glucose 136 H Calcium 8.2 L Liver Function 12/30/16 Range/Units 04:30 Total Bilirubin 1.4 H (0.2-1.2) mg/dL Direct Bilirubin 0.7 H (0.0-0.5) mg/dL AST 53 H (5-34) Units/L ALT 19 (0-55) Units/L Alkaline Phosphatase 106 (38-126) Units/L Albumin 2.5 L (3.5-5.0) g/dL - ABG Interpretation ABG results: PT/INR, D-dimer PT 21.9 Seconds (9.4-12.1) H 12/30/16 10:18 - Attending Attestation I examined this patient and my medical decision-making was reviewed with the [employer]/PA/Advanced Practice Nurse/Resident Physician. I agree with the documented findings, disposition and treatment plan as described except to the extent set forth below.
[2016-12-30 10:03] LABS: % Iron Saturation 18 % (20-55); Alanine Aminotransferase 19 Units/L (0-55); Albumin/Globulin Ratio 0.6 (1.1-2.2); Alkaline Phosphatase 106 Units/L (38-126); Aspartate Amino Transferase 53 Units/L (5-34); Bilirubin,Direct 0.7 mg/dL (0.0-0.5); Bilirubin,Indirect 0.7 mg/dL (0.0-1.2); Bilirubin,Total 1.4 mg/dL (0.2-1.2); Globulin 4.2 g/dL (2.4-3.5); Iron 29 mcg/dL (65-175); Total Protein 6.7 g/dL (6.0-8.3); Transferrin 112 mg/dL (174-364)
[2016-12-30] MEDS: Pregabalin 75 MG CAPSULE PO SCH ×2 (10:25→19:57)
[2016-12-30] MEDS: Pantoprazole 40 MG VIAL IVP SCH (10:25)
[2016-12-30 10:37] LABS: Folate 14.1 ng/mL (7.0-31.4)
[2016-12-30 10:47] LABS: Prothrombin Time 21.9 Seconds (9.4-12.1)
--- NOTE | 2016-12-30 10:52 | Gastroenterology Consult Note ---
<Ky Guajardo - Last Filed: 12/30/16 10:48> Date of Encounter: 12/30/16 Time of Encounter: 10:10 - Assessment and plan (1) Cirrhosis of liver with ascites Current Visit: Yes Status: Acute Assessment and plan: Due to alpha 1 antitrypsin. Patient has been referred to [facility] for lung/liver transplant - family cannot make the trip. Referral to [facility] for same , insurance obstacles with high out of pocket, working on patient assistance paperwork through GI clinic. On admission MELD Na 17, Child-Freed class C, DF 49.2. Paracentesis completed 12/28 with removal of 1.5L. Kidney function WNL, consider restarting diuretics. Qualifiers: Hepatic cirrhosis type: unspecified hepatic cirrhosis Qualified Code(s): K74.60 - Unspecified cirrhosis of liver (2) Hepatic encephalopathy Current Visit: Yes Status: Acute Assessment and plan: Likely exacerbated by acute illness. Reduce sedating medications. Continue Lactulose, titrate to 2-4 BM daily. Start Zinc. Increase Rifaximin to 400 mg TID while inpatient and 550 mg BID while outpatient. 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 Zelaya is a 56 year old male with PMHx of GERD, chronic back pain, HTN, HLD , CAD, DM II, zslao-0-oyhmveqoyyi deficiency, ascites, cirrhosis, COPD (on 2L home oxygen). The patient has a significant history of ascites, and gets paracentesis done weekly. He went to his weekly paracentesis this morning and was sent to our ED because of somnolence. For the past 3 days, the patient noticed that he was sleeping more and had episodes of productive cough of a yellow sputum. No fever, chills, chest pain, abdominal pain, nausea, vomiting, or bleeding. CXR in the ED showed left lower airspace opacity, and was started on Vancomycin and Zosyn. He was hospitalized 10 days ago and treated for COPD and hepatic encephalopathy. EGD 11/12/16 showing grade 1 varices and portal hypertension gastropathy by Dr. Ariza. US liver was done showing no lesion. AFP was grossly elevated at 298, abdominal MRI was negative for liver lesion. Patient had been referred to [facility] for evaluation for lung/liver transplantation but the family was unable to make that trip. GI office worked on getting patient to [facility] for similar evaluation, however, the co-insurance requirements with the patient's insurance plan make this somewhat economically unfeasible. Patient may qualify for patient assistance which was communicated to the family and materials have been submitted. Patient has hepatic encephalopathy requiring use of lactulose, Xifaxan and Zinc supplements. Procedures: EGD 11/12/16 showing grade 1 varices and portal hypertension gastropathy NSAIDs: None Anticoagulation: None Past Med Surg Social Fam HX - Past Medical History Medical history: cirrhosis, COPD, diabetes, GI bleed, hepatitis, hyperlipidemia , hypertension, myocardial infarction, renal disease Psychiatric history: no psych history - Past Surgical History Surgical History: other - Social History Smoking Status: Former smoker Smokeless Tobacco Status: No Alcohol use: none Drug use: none - Family History Mother Living Status: Hx Family Cardiac Disorders: Yes Hx Family Respiratory Disorders: Yes Father Living Status: Hx Family Cardiac Disorders: No Hx Family Respiratory Disorders: No Hx Family Cancer: No Hx Family GI Disorders: No Hx Family Endocrine Disorder: No Hx Family Neuromuscular Disorders: No Hx Family Neurologic Disorders: No Hx Family HEENT Disorders: No Hx Family Autoimmune Disorders: No - Gastrointestinal Gastrointestinal: Present: as per HPI - Constitutional Constitutional: as per HPI - EENT Eyes: as per HPI Ears: Present: as per HPI Nose, mouth and throat: Present: as per HPI - Cardiovascular Cardiovascular ROS: Present: as per HPI - Respiratory Respiratory IM: Present: as per HPI - Genitourinary Genitourinary: Absent: change in color, Urinary frequency - Neurological ROS Neurological GI: Present: as per HPI - Hematologic/Lymphatic Hematologic/Lymphatic pediatric: Present: as per HPI - Musculoskeletal Musculoskeletal ROS GI: Present: as per HPI - Integumentary Integumentary GI: Present: as per HPI - Psychiatric ROS Psychiatric GI: Present: as per HPI - Endocrine Endocrine IM: Present: as per HPI - Constitutional Vitals: Temp Pulse Resp BP Pulse Ox 97.7 F 80 18 108/69 94 L 12/30/16 07:00 12/30/16 07:00 12/30/16 08:20 12/30/16 07:00 12/30/16 08:20 General appearance: Present: cooperative, A&O X 3, no acute distress, answers questions appropriately Exam: lethargic - Head Head exam: Present: atraumatic, normocephalic - Eye Eye exam: Present: normal appearance, sclera anicteric - ENT ENT exam: Present: mucous membranes dry - Neck Neck exam general surgery: Present: normal inspection, trachea midline - Respiratory Respiratory exam: Present: decreased breath sounds, CTAB - Cardiovascular Cardiovascular exam: Present: RRR, +S1, +S2 - GI/Abdominal GI/Abdominal exam: Present: distended, firm, soft, no peritoneal signs. Absent : guarding, tenderness - Rectal Rectal exam: Present: deferred - Extremities Exam Extremities exam: Present: warm - Neurological Exam Neurological exam: Present: no focal deficits - Psychiatric Psychiatric exam: Present: normal affect, normal mood - Skin Skin exam: Present: dry, intact, normal color, warm Results - Labs CBC & Chem 7: 12/30/16 04:30 12/30/16 04:30 Labs: Last Result Calcium 8.2 mg/dL (8.6-10.8) L 12/30/16 04:30 Iron 29 mcg/dL (65-175) L 12/30/16 04:30 % Saturation 18 % (20-55) L 12/30/16 04:30 Transferrin 112 mg/dL (174-364) L 12/30/16 04:30 Troponin I 0.01 ng/mL (0-0.03) 12/28/16 11:14 Vitamin B12 1258 pg/mL (213-816) H 12/30/16 04:30 Folate 14.1 ng/mL (7.0-31.4) 12/30/16 04:30 Entire Visit Hgb 7.8 g/dL (12.9-16.9) L 12/30/16 04:30 Hct 23.6 % (37.5-50.1) L 12/30/16 04:30 PT 20.9 Seconds (9.4-12.1) H 12/28/16 11:14 Total Bilirubin 1.4 mg/dL (0.2-1.2) H 12/30/16 04:30 AST 53 Units/L (5-34) H 12/30/16 04:30 ALT 19 Units/L (0-55) 12/30/16 04:30 Ammonia 71 mcmol/L (18-72) 12/29/16 05:20 Folate 14.1 ng/mL (7.0-31.4) 12/30/16 04:30 - ABG ABG results: PT/INR, D-dimer PT 20.9 Seconds (9.4-12.1) H 12/28/16 11:14 Consult Discharge Plan - Plan Instructions: Heart Failure (DC), Cirrhosis (DC), Cirrhosis (GEN), Urinary Tract Infection in Men (DC), Diabetes Mellitus Type 2 in Adults (DC), Viral Hepatitis B (DC), Viral Hepatitis B (GEN), Chronic Obstructive Pulmonary Disease (DC), Chronic Hypertension (DC), Abdominal Paracentesis (DC), Ascites ( DC), Ascites (GEN), Viral Hepatitis B, Mountain Services Manager (GEN) Additional Instructions: Follow-up appointments: If there is not an appointment listed below, please call your physician and schedule a follow-up appointment. If you have congestive heart failure and your symptoms return, make an appointment with your physician. Symptoms: If your condition changes or you experience any of the following symptoms, notify your physician immediately: Unusual or worsening pain, fever, persistent nausea and vomiting, bleeding, increase in swelling (especially in your legs), sudden weight gain, extreme dizziness, chest pain, increased drainage or redness from a wound or incision. Go to the emergency department if you experience a problem with breathing. Weights: If you have a history of swelling or shortness of breath, weigh yourself daily and notify your physician if you have a weight gain of two or more pounds in one day or 5 or more pounds in a week. If you experience any of the warning signs for stroke: Sudden numbness or weakness of the face, arm or leg; especially on one side of the body, sudden confusion, trouble speaking or understanding, sudden trouble seeing in one or both eyes, sudden trouble walking, dizziness, loss of balance or coordination, sudden sever headache with no cause; Call 911 or go to the emergency room. Stroke is a medical emergency. Some risk factors for stroke: Age, cigarette smoking, diabetes, excessive alcohol consumption, family history , high blood pressure, overweight, physical inactivity, prior stroke, heart attack, diagnosis of carotid artery stenosis or other artery disease. If you smoke, STOP: Smoking or tobacco use significantly increases your risk of heart and lung disease. Your chance of disease greatly increases if you continue to smoke. For more information, call the [employer] tobacco quit line for smoking cessation 6-666NOW ( ) Referrals: Tiny Santo DO [Primary Care Provider] - 01/04/17 2:00 pm <Clinton Ariza - Last Filed: 12/30/16 18:00> Date of Encounter: 12/30/16 Time of Encounter: 13:00 - Time Spent With Patient Total time spent is greater than 50% in coordination of care (as documented) at patient's floor/unit and/or counseling patient: GI History of Present Illness - Data of Consult Requesting Physician: Margie Travis - Consult Narrative History of present illness: Mr. Zelaya is a 56 year old male - Constitutional Vitals: Temp Pulse Resp BP Pulse Ox 97.7 F 79 18 129/70 96 12/30/16 07:00 12/30/16 15:00 12/30/16 16:48 12/30/16 15:00 12/30/16 16:48 Results - Labs CBC & Chem 7: 12/30/16 16:09 12/30/16 04:30 Labs: Last Result Calcium 8.2 mg/dL (8.6-10.8) L 12/30/16 04:30 Iron 29 mcg/dL (65-175) L 12/30/16 04:30 % Saturation 18 % (20-55) L 12/30/16 04:30 Transferrin 112 mg/dL (174-364) L 12/30/16 04:30 Troponin I 0.01 ng/mL (0-0.03) 12/28/16 11:14 Vitamin B12 1258 pg/mL (213-816) H 12/30/16 04:30 Folate 14.1 ng/mL (7.0-31.4) 12/30/16 04:30 Entire Visit Hgb 8.2 g/dL (12.9-16.9) L D 12/30/16 16:09 Hct 24.5 % (37.5-50.1) L 12/30/16 16:09 PT 21.9 Seconds (9.4-12.1) H 12/30/16 10:18 Total Bilirubin 1.4 mg/dL (0.2-1.2) H 12/30/16 04:30 AST 53 Units/L (5-34) H 12/30/16 04:30 ALT 19 Units/L (0-55) 12/30/16 04:30 Ammonia 71 mcmol/L (18-72) 12/29/16 05:20 Folate 14.1 ng/mL (7.0-31.4) 12/30/16 04:30 - ABG ABG results: PT/INR, D-dimer PT 21.9 Seconds (9.4-12.1) H 12/30/16 10:18 - Attending Attestation I examined this patient and my medical decision-making was reviewed with the BEACH ATTENDANT/PA/Advanced Practice Nurse/Resident Physician. I agree with the documented findings, disposition and treatment plan as described except to the extent set forth below. Pt with cirrhosis with AIAT def and alos with Hep B. Will check Hep viral load and if high then start treatment. Resume diuretics. Has appoinment with [facility] on 14 for poss herart/lung transplant w/u. D/W Dr Polk about poss TIPS but can make enceph worst.
[2016-12-30] MEDS: *HR* OxyCODONE Immed Rel 15 MG TABLET PO PRN ×2 (14:22→18:08)
[2016-12-30 14:53] LABS: Hematocrit 18.3 % (37.5-50.1)
[2016-12-30 14:54] LABS: Hemoglobin 6.2 g/dL (12.9-16.9)
[2016-12-30 16:26] LABS: Hematocrit 24.5 % (37.5-50.1)
[2016-12-30 16:35] LABS: Hemoglobin 8.2 g/dL (12.9-16.9)
[2016-12-30] MEDS ORDERED: Ondansetron ODT 4 MG TAB.RAPDIS PO PRN (17:07)
[2016-12-30] MEDS ORDERED: ALPHA 1 PROTEINASE INHIBITOR IV SCH (17:15)
[2016-12-30] MEDS: Zinc Sulfate 220 MG CAPSULE PO SCH (18:20)
[2016-12-30] MEDS: Magnesium Oxide 400 MG TABLET PO SCH (19:57)
[2016-12-30] MEDS: Budesonide/Formoterol 160/4.5 MDI IH SCH (20:07)
[2016-12-31] MEDS: Lactulose Oral Soln 20 GM/30 ML UDC PO SCH ×12 (02:06→23:44)
[2016-12-31] MEDS: Ipratropium/Albuterol Neb 3 ML IH SCH ×5 (03:29→19:36)
[2016-12-31 04:01] LABS: Hematocrit 21.6 % (37.5-50.1); Hemoglobin 7.4 g/dL (12.9-16.9)
[2016-12-31] MEDS: 0.9 % Sodium Chloride 1,000 ML IVC SCH ×3 (05:12→20:15)
[2016-12-31] MEDS: Budesonide/Formoterol 160/4.5 MDI IH SCH ×2 (07:52→19:39)
[2016-12-31] MEDS ORDERED: Furosemide 40 MG TABLET PO SCH (09:00)
[2016-12-31 09:30] LABS: BUN/Creatinine Ratio 8 (6-26); Blood Urea Nitrogen 7 mg/dL (8-26); Calcium 8.1 mg/dL (8.6-10.8); Carbon Dioxide 26 mEq/L (19-29); Chloride 103 mEq/L (98-109); Glucose 102 mg/dL (70-99); Magnesium 1.7 mg/dL (1.6-2.6); Osmolality,Calculated 276 (280-300); Potassium 3.9 mEq/L (3.5-4.5); Sodium 134 mEq/L (136-145); eGFR For African Americans > 60 (> 60); eGFR For Non-African Americans > 60 (> 60)
[2016-12-31] MEDS: Pregabalin 75 MG CAPSULE PO SCH ×2 (10:20→20:15)
[2016-12-31] MEDS: Magnesium Oxide 400 MG TABLET PO SCH ×2 (10:20→20:14)
[2016-12-31] MEDS: Piperacillin/Tazobactam 3.375 GM in D5% in Water (Mini-Bag+) 100 ML IVPB SCH (10:20)
[2016-12-31] MEDS: Pantoprazole 40 MG VIAL IVP SCH (10:21)
[2016-12-31] MEDS: Zinc Sulfate 220 MG CAPSULE PO SCH (10:21)
[2016-12-31] MEDS: *HR* OxyCODONE Immed Rel 15 MG TABLET PO PRN ×2 (10:21→16:54)
--- NOTE | 2016-12-31 10:23 | Internal Med Progress Note ---
<Brett Li - Last Filed: 12/31/16 15:11> Date of Encounter: 12/31/16 - Assessment and plan (1) Cirrhosis of liver with ascites Current Visit: Yes Status: Acute Assessment and plan: 12/29 -Patient has history of Hep B and antitrypsin deficiency and Weekly paracentesis. -Presented with AMS, imaging showed possible pneumonia, labs revealed elevated ammonia. -There was concern for SBP and paracentesis ordered by IR for culture and albumin given for hepatorenal syndrome. However, no peritoneal signs or fluid distension, so SBP low on differential. -Elevated ammonia that is trending down and patients symptoms resolving on lactulose. AMS likely due to hepatic encephalopathy. -Patient denies alcohol use over the past year. Ativan ordered PRN as precaution for alcohol with drawl. -Blood cultures ordered. Plan -Continue current treatment including lactulose. -Redraw labs, including ammonia. No need to redraw Tuesday if trending down and patients symptoms improving. - 12/30 -Abdomen slightly more distended. Denies abdominal pain -GI on boards Plan -Following GI recommendations per medication changes 12/31/16 -Increase abdominal swelling. Patient undergoes weekly paracentesis. This is baseline for him -Not confused. Resting comfortably in bed. Plan -Continue therapy. Follow GI recommendations -Checking Hep B viral load -Likely discharge on Tuesday. Qualifiers: Hepatic cirrhosis type: unspecified hepatic cirrhosis Qualified Code(s): K74.60 - Unspecified cirrhosis of liver (2) Hepatic encephalopathy Current Visit: Yes Status: Acute Assessment and plan: -See above (3) Hepatitis B Current Visit: No Status: Chronic Assessment and plan: 12/31/16 -Checking Viral load Qualifiers: Viral hepatitis chronicity: chronic Hepatic coma status: without hepatic coma Hepatitis delta agent presence: without delta-agent Qualified Code(s): B18.1 - Chronic viral hepatitis B without delta-agent (4) Pneumonia Current Visit: No Status: Acute Assessment and plan: 12/29 -Presented with productive cough. Chest x-ray revealed left lower lobe airspace opacity. Normal lactic acid. Normal white blood cell count. Plan -Continue abx and breathing treatments. 12/30 -Patient feels like his breathing has improved -Does have a productive cough -Sputum culture order to evaluate Plan -Vanc stopped. -Culture ordered 12/31/16 -Patient not having productive cough, fever, tachy, increased Respiratory rate, leukocytosis. Is able to take oral medication -CXR on 12/28 shows possible pneumonia. -BC and urine culture negative. Plan -Zosyn, start PO levaquin, 4 more days of abx use needed. -Sputum culture Qualifiers: Pneumonia type: due to unspecified organism Laterality: left Lung location: lower lobe of lung Qualified Code(s): J18.1 - Lobar pneumonia, unspecified organism (5) Chronic anemia Current Visit: No Status: Acute Assessment and plan: -Chronic Anemia of unknown cause. patient denies any bleeding -Patient hgb measured <7. Redraw revealed hgb >8.0. Cancelled transfusion. Continue to monitor -Iron studies reveal iron deficiency anemia. -B12, Folate obtained Plan -Transfuse if <7 1 PRBC -Hgb improving and patient is eating now. No need for iron supplementation at this time. 12/31/16 Plan -Transfuse 1 unit PRBC if hgb <7 (6) CHF (congestive heart failure) Current Visit: No Status: Chronic Assessment and plan: -Head of bed needs to be elevated at 30 degrees most of time due to CHF. This is not feasible in an ordinary bed. Qualifiers: Congestive heart failure type: unspecified congestive heart failure type Congestive heart failure chronicity: acute Qualified Code(s): I50.9 - Heart failure, unspecified (7) Electrolyte and fluid disorder Current Visit: Yes Status: Acute Assessment and plan: -patient has cirrhosis. Weekly paracentesis.Trying to get liver transplant -Difficult to maintain electrolyte balance WNL -Hypocalcemia and hypoalbuminemia. Patient not SBP and albumin chronically low due to liver failure. I feel it is not needed to replace albumin at this time Plan -Replace Calcium -Continue to monitor labs. (8) Wliie-9-gapqjmiglye deficiency Current Visit: No Status: Chronic - Subjective Interval history: Patient is resting calmly in bed. Able to answer questions appropriately. Alert and oriented 3. He has no questions or concerns. Admits to SOB, that is chronic. Denies headache, blurry vision, dizziness, confusion, chest pain, abdominal pain, urinary complaints, blood in the stool or urine. Lives at home with his and son. Denies alcohol use. Has no questions or concerns at this time. Paracentesis last week, no complications. 12/31/16 - patient felt better today compared to yesterday. -Feels like he his close to his baseline. Denies abdominal pain, N/V/ F/COLVIN -Discussed the care and plan with the patient. All questions and concerns answered. - Constitutional Vitals: Temp Pulse Resp BP Pulse Ox 98.2 F 66 16 96/59 95 12/31/16 07:00 12/31/16 07:00 12/31/16 07:00 12/31/16 07:00 12/31/16 07:55 General appearance: Present: cooperative, A&O X 3, pleasant, no acute distress - Head Head exam: Present: atraumatic, normocephalic - Eye Eye exam: Present: PERRL, conjuntiva pink, sclera anicteric Pupils: Present: PERRL - Neck Neck exam general surgery: Present: supple, trachea midline. Absent: lymphadenopathy - Respiratory Respiratory exam: Present: wheezes. Absent: CTAB - Cardiovascular Cardiovascular exam: Present: RRR, +S1, +S2. Absent: diastolic murmur, gallop, rubs, systolic murmur - GI/Abdominal GI/Abdominal exam: Present: normal bowel sounds, soft, no peritoneal signs. Absent: distended, tenderness Additional comments: Increased swelling compared to yesterday.Weekly paracentesis. Not in discomfort. - Extremities Exam Extremities exam: Present: warm, radial pulses palpable and symetrical. Absent : calf tenderness, cyanotic, pedal edema - Neurological Exam Neurological exam: Present: CN II-XII intact, oriented X3, no focal deficits. Absent: pronater drift, facial droop, speech deficit - Skin Skin exam: Present: dry, intact Internal Medicine: Result - Labs CBC & Chem 7: 12/31/16 03:45 12/31/16 09:05 Labs: Short CBC 12/30/16 12/30/16 12/31/16 Range/Units 14:30 16:09 03:45 Hgb 6.2 L D 8.2 L D 7.4 L (12.9-16.9) g/dL Hct 18.3 L 24.5 L 21.6 L (37.5-50.1) % BMP 12/31/16 09:05 Sodium 134 L Potassium 3.9 Chloride 103 Carbon Dioxide 26 BUN 7 L Creatinine 0.84 Glucose 102 H Calcium 8.1 L Liver Function 12/31/16 Range/Units 03:45 Albumin 2.3 L (3.5-5.0) g/dL - ABG Interpretation ABG results: PT/INR, D-dimer PT 21.9 Seconds (9.4-12.1) H 12/30/16 10:18 Consult Discharge Plan - Plan Instructions: Heart Failure (DC), Cirrhosis (DC), Cirrhosis (GEN), Urinary Tract Infection in Men (DC), Diabetes Mellitus Type 2 in Adults (DC), Viral Hepatitis B (DC), Viral Hepatitis B (GEN), Chronic Obstructive Pulmonary Disease (DC), Chronic Hypertension (DC), Abdominal Paracentesis (DC), Ascites ( DC), Ascites (GEN), Viral Hepatitis B, Director Of Teacher Education (GEN) Additional Instructions: Follow-up appointments: If there is not an appointment listed below, please call your physician and schedule a follow-up appointment. If you have congestive heart failure and your symptoms return, make an appointment with your physician. Symptoms: If your condition changes or you experience any of the following symptoms, notify your physician immediately: Unusual or worsening pain, fever, persistent nausea and vomiting, bleeding, increase in swelling (especially in your legs), sudden weight gain, extreme dizziness, chest pain, increased drainage or redness from a wound or incision. Go to the emergency department if you experience a problem with breathing. Weights: If you have a history of swelling or shortness of breath, weigh yourself daily and notify your physician if you have a weight gain of two or more pounds in one day or 5 or more pounds in a week. If you experience any of the warning signs for stroke: Sudden numbness or weakness of the face, arm or leg; especially on one side of the body, sudden confusion, trouble speaking or understanding, sudden trouble seeing in one or both eyes, sudden trouble walking, dizziness, loss of balance or coordination, sudden sever headache with no cause; Call 911 or go to the emergency room. Stroke is a medical emergency. Some risk factors for stroke: Age, cigarette smoking, diabetes, excessive alcohol consumption, family history , high blood pressure, overweight, physical inactivity, prior stroke, heart attack, diagnosis of carotid artery stenosis or other artery disease. If you smoke, STOP: Smoking or tobacco use significantly increases your risk of heart and lung disease. Your chance of disease greatly increases if you continue to smoke. For more information, call the [employer] tobacco quit line for smoking cessation 3-174- QUIT-NOW ( ) Referrals: Tiny Santo DO [Primary Care Provider] - 01/04/17 2:00 pm <Jamal Orr - Last Filed: 12/31/16 18:30> Date of Encounter: 12/31/16 Time of Encounter: 18:30 - Constitutional Vitals: Temp Pulse Resp BP Pulse Ox 98.3 F 69 18 101/61 93 L 12/31/16 15:00 12/31/16 15:00 12/31/16 16:05 12/31/16 15:10 12/31/16 16:05 Internal Medicine: Result - Labs CBC & Chem 7: 12/31/16 03:45 12/31/16 09:05 Labs: Short CBC 12/31/16 Range/Units 03:45 Hgb 7.4 L (12.9-16.9) g/dL Hct 21.6 L (37.5-50.1) % BMP 12/31/16 12/31/16 09:05 14:22 Sodium 134 L Potassium 3.9 Chloride 103 Carbon Dioxide 26 BUN 7 L Creatinine 0.84 Glucose 102 H Calcium 8.1 L 8.0 L Liver Function 12/31/16 Range/Units 03:45 Albumin 2.3 L (3.5-5.0) g/dL - ABG Interpretation ABG results: PT/INR, D-dimer PT 21.9 Seconds (9.4-12.1) H 12/30/16 10:18 - Attending Attestation I examined this patient and my medical decision-making was reviewed with the INSURANCE PROCESSING CLERK/PA/Advanced Practice Nurse/Resident Physician. I agree with the documented findings, disposition and treatment plan as described except to the extent set forth below.
--- NOTE | 2016-12-31 11:50 | Gastroenterology Progress Note ---
<Ky Guajardo - Last Filed: 12/31/16 11:47> Date of Encounter: 12/31/16 Time of Encounter: 10:45 - Assessment and plan (1) Cirrhosis of liver with ascites Current Visit: Yes Status: Acute Assessment and plan: Due to alpha 1 antitrypsin. Pt with appointment with on the for lung/ liver transplant. On admission MELD Na 17, Child-Freed class C, DF 49.2, yesterday MELD Na 19, Child-Freed class C, and DF 53.8. Paracentesis completed with removal of 1.5L. Kidney function WNL, restart diuretics, Aldactone 100 mg BID and Lasix 40 mg BID. Qualifiers: Hepatic cirrhosis type: unspecified hepatic cirrhosis Qualified Code(s): K74.60 - Unspecified cirrhosis of liver (2) Hepatic encephalopathy Current Visit: Yes Status: Acute Assessment and plan: Likely exacerbated by acute illness. Reduce sedating medications. Continue Lactulose, titrate to 2-4 BM daily, Zinc, and Rifaximin 400 mg TID while inpatient and 550 mg BID while outpatient. 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 If greater than 2000, then start treatment. Qualifiers: Viral hepatitis chronicity: chronic Hepatic coma status: without hepatic coma Hepatitis delta agent presence: without delta-agent Qualified Code(s): B18.1 - Chronic viral hepatitis B without delta-agent - Time Spent With Patient Total time spent is greater than 50% in coordination of care (as documented) at patient's floor/unit and/or counseling patient: - Subjective Interval history: Pt is resting in bed without acute complaints at this time. he reports having an appointment with on the for lung/liver transplant. - Constitutional Vitals: Temp Pulse Resp BP Pulse Ox 98.2 F 66 16 96/59 95 12/31/16 07:00 12/31/16 07:00 12/31/16 07:00 12/31/16 07:00 12/31/16 07:55 General appearance: Present: cooperative, A&O X 3, no acute distress, answers questions appropriately - Head Head exam: Present: atraumatic, normocephalic - Eye Eye exam: Present: normal appearance, sclera anicteric - ENT ENT exam: Present: mucous membranes moist - Neck Neck exam general surgery: Present: normal inspection, trachea midline - Respiratory Respiratory exam: Present: CTAB - Cardiovascular Cardiovascular exam: Present: RRR, +S1, +S2 - GI/Abdominal GI/Abdominal exam: Present: distended (slight), firm, soft, no peritoneal signs. Absent: guarding, tenderness - Rectal Rectal exam: Present: deferred - Extremities Exam Extremities exam: Present: warm - Neurological Exam Neurological exam: Present: no focal deficits - Psychiatric Psychiatric exam: Present: normal affect, normal mood - Skin Skin exam: Present: dry, intact, normal color, warm Results - Labs CBC & Chem 7: 12/31/16 03:45 12/31/16 09:05 Labs: Last Result Calcium 8.1 mg/dL (8.6-10.8) L 12/31/16 09:05 Iron 29 mcg/dL (65-175) L 12/30/16 04:30 % Saturation 18 % (20-55) L 12/30/16 04:30 Transferrin 112 mg/dL (174-364) L 12/30/16 04:30 Troponin I 0.01 ng/mL (0-0.03) 12/28/16 11:14 Vitamin B12 1258 pg/mL (213-816) H 12/30/16 04:30 Folate 14.1 ng/mL (7.0-31.4) 12/30/16 04:30 Entire Visit Hgb 7.4 g/dL (12.9-16.9) L 12/31/16 03:45 Hct 21.6 % (37.5-50.1) L 12/31/16 03:45 PT 21.9 Seconds (9.4-12.1) H 12/30/16 10:18 Total Bilirubin 1.4 mg/dL (0.2-1.2) H 12/30/16 04:30 AST 53 Units/L (5-34) H 12/30/16 04:30 ALT 19 Units/L (0-55) 12/30/16 04:30 Ammonia 71 mcmol/L (18-72) 12/29/16 05:20 Folate 14.1 ng/mL (7.0-31.4) 12/30/16 04:30 - ABG ABG results: PT/INR, D-dimer PT 21.9 Seconds (9.4-12.1) H 12/30/16 10:18 Consult Discharge Plan - Plan Instructions: Heart Failure (DC), Cirrhosis (DC), Cirrhosis (GEN), Urinary Tract Infection in Men (DC), Diabetes Mellitus Type 2 in Adults (DC), Viral Hepatitis B (DC), Viral Hepatitis B (GEN), Chronic Obstructive Pulmonary Disease (DC), Chronic Hypertension (DC), Abdominal Paracentesis (DC), Ascites ( DC), Ascites (GEN), Viral Hepatitis B, Poiser (GEN) Additional Instructions: Follow-up appointments: If there is not an appointment listed below, please call your physician and schedule a follow-up appointment. If you have congestive heart failure and your symptoms return, make an appointment with your physician. Symptoms: If your condition changes or you experience any of the following symptoms, notify your physician immediately: Unusual or worsening pain, fever, persistent nausea and vomiting, bleeding, increase in swelling (especially in your legs), sudden weight gain, extreme dizziness, chest pain, increased drainage or redness from a wound or incision. Go to the emergency department if you experience a problem with breathing. Weights: If you have a history of swelling or shortness of breath, weigh yourself daily and notify your physician if you have a weight gain of two or more pounds in one day or 5 or more pounds in a week. If you experience any of the warning signs for stroke: Sudden numbness or weakness of the face, arm or leg; especially on one side of the body, sudden confusion, trouble speaking or understanding, sudden trouble seeing in one or both eyes, sudden trouble walking, dizziness, loss of balance or coordination, sudden sever headache with no cause; Call 911 or go to the emergency room. Stroke is a medical emergency. Some risk factors for stroke: Age, cigarette smoking, diabetes, excessive alcohol consumption, family history , high blood pressure, overweight, physical inactivity, prior stroke, heart attack, diagnosis of carotid artery stenosis or other artery disease. If you smoke, STOP: Smoking or tobacco use significantly increases your risk of heart and lung disease. Your chance of disease greatly increases if you continue to smoke. For more information, call the [place] tobacco quit line for smoking cessation 8--NOW ( ) Referrals: Alberta Santo-DO Arias [Primary Care Provider] - 01/04/17 2:00 pm <Clinton Ariza - Last Filed: 12/31/16 13:53> Date of Encounter: 12/31/16 - Time Spent With Patient Total time spent is greater than 50% in coordination of care (as documented) at patient's floor/unit and/or counseling patient: - Constitutional Vitals: Temp Pulse Resp BP Pulse Ox 98.2 F 66 16 96/59 95 12/31/16 07:00 12/31/16 07:00 12/31/16 07:00 12/31/16 07:00 12/31/16 07:55 Results - Labs CBC & Chem 7: 12/31/16 03:45 12/31/16 09:05 Labs: Last Result Calcium 8.1 mg/dL (8.6-10.8) L 12/31/16 09:05 Iron 29 mcg/dL (65-175) L 12/30/16 04:30 % Saturation 18 % (20-55) L 12/30/16 04:30 Transferrin 112 mg/dL (174-364) L 12/30/16 04:30 Troponin I 0.01 ng/mL (0-0.03) 12/28/16 11:14 Vitamin B12 1258 pg/mL (213-816) H 12/30/16 04:30 Folate 14.1 ng/mL (7.0-31.4) 12/30/16 04:30 Entire Visit Hgb 7.4 g/dL (12.9-16.9) L 12/31/16 03:45 Hct 21.6 % (37.5-50.1) L 12/31/16 03:45 PT 21.9 Seconds (9.4-12.1) H 12/30/16 10:18 Total Bilirubin 1.4 mg/dL (0.2-1.2) H 12/30/16 04:30 AST 53 Units/L (5-34) H 12/30/16 04:30 ALT 19 Units/L (0-55) 12/30/16 04:30 Ammonia 71 mcmol/L (18-72) 12/29/16 05:20 Folate 14.1 ng/mL (7.0-31.4) 12/30/16 04:30 - ABG ABG results: PT/INR, D-dimer PT 21.9 Seconds (9.4-12.1) H 12/30/16 10:18
[2016-12-31] MEDS ORDERED: Calcium Gluconate 1,000 MG in D5% in Water 100 ML IVPB PRN (15:02)
[2016-12-31] MEDS: Furosemide 40 MG TABLET PO SCH (16:54)
[2016-12-31] MEDS: ALPRAZolam 0.5 MG TABLET PO PRN (20:22)
[2017-01-01] MEDS: Ipratropium/Albuterol Neb 3 ML IH SCH ×6 (02:25→20:22)
[2017-01-01 02:59] LABS: Hematocrit 20.7 % (37.5-50.1)
[2017-01-01] MEDS: Lactulose Oral Soln 20 GM/30 ML UDC PO SCH ×9 (03:03→20:51)
[2017-01-01 03:15] LABS: BUN/Creatinine Ratio 9 (6-26); Blood Urea Nitrogen 9 mg/dL (8-26); Calcium 7.8 mg/dL (8.6-10.8); Carbon Dioxide 22 mEq/L (19-29); Chloride 104 mEq/L (98-109); Glucose 139 mg/dL (70-99); Osmolality,Calculated 277 (280-300); Potassium 3.8 mEq/L (3.5-4.5); Sodium 133 mEq/L (136-145); eGFR For African Americans > 60 (> 60); eGFR For Non-African Americans > 60 (> 60)
[2017-01-01] MEDS: Budesonide/Formoterol 160/4.5 MDI IH SCH ×2 (07:31→20:21)
[2017-01-01] MEDS: Pregabalin 75 MG CAPSULE PO SCH ×2 (09:04→20:47)
[2017-01-01] MEDS: *HR* OxyCODONE Immed Rel 15 MG TABLET PO PRN ×2 (09:04→18:06)
[2017-01-01] MEDS: Magnesium Oxide 400 MG TABLET PO SCH ×2 (09:04→20:47)
[2017-01-01] MEDS: Furosemide 40 MG TABLET PO SCH ×2 (09:04→18:09)
[2017-01-01] MEDS: levoFLOXacin 500 MG TABLET PO SCH (09:04)
[2017-01-01] MEDS: Zinc Sulfate 220 MG CAPSULE PO SCH (09:05)
[2017-01-01] MEDS ORDERED: [UNRECOGNIZED DRUG - OTHER] IVP ONE (11:15)
[2017-01-01] MEDS ORDERED: [UNRECOGNIZED DRUG - OTHER] IVP SCH (11:30)
--- NOTE | 2017-01-01 17:07 | Internal Med Progress Note ---
Date of Encounter: 01/01/17 Time of Encounter: 17:05 - Assessment and plan (1) Cirrhosis of liver with ascites Current Visit: Yes Status: Acute Assessment and plan: 12/29 -Patient has history of Hep B and antitrypsin deficiency and Weekly paracentesis. -Presented with AMS, imaging showed possible pneumonia, labs revealed elevated ammonia. -There was concern for SBP and paracentesis ordered by IR for culture and albumin given for hepatorenal syndrome. However, no peritoneal signs or fluid distension, so SBP low on differential. -Elevated ammonia that is trending down and patients symptoms resolving on lactulose. AMS likely due to hepatic encephalopathy. -Patient denies alcohol use over the past year. Ativan ordered PRN as precaution for alcohol with drawl. -Blood cultures ordered. Plan -Continue current treatment including lactulose. -Redraw labs, including ammonia. No need to redraw Tuesday if trending down and patients symptoms improving. - 12/30 -Abdomen slightly more distended. Denies abdominal pain -GI on boards Plan -Following GI recommendations per medication changes 12/31/16 -Increase abdominal swelling. Patient undergoes weekly paracentesis. This is baseline for him -Not confused. Resting comfortably in bed. Plan -Continue therapy. Follow GI recommendations -Checking Hep B viral load -Likely discharge on Tuesday. 01/01/2017 Noted that patient's Hb dropped will transfuse 2 PRBCs no obvious bleeding noted. will follow GI recommendations. Qualifiers: Hepatic cirrhosis type: unspecified hepatic cirrhosis Qualified Code(s): K74.60 - Unspecified cirrhosis of liver (2) Hepatic encephalopathy Current Visit: Yes Status: Acute Assessment and plan: -See above (3) Pneumonia Current Visit: No Status: Acute Assessment and plan: 12/29 -Presented with productive cough. Chest x-ray revealed left lower lobe airspace opacity. Normal lactic acid. Normal white blood cell count. Plan -Continue abx and breathing treatments. 12/30 -Patient feels like his breathing has improved -Does have a productive cough -Sputum culture order to evaluate Plan -Vanc stopped. -Culture ordered 12/31/16 -Patient not having productive cough, fever, tachy, increased Respiratory rate, leukocytosis. Is able to take oral medication -CXR on 12/28 shows possible pneumonia. -BC and urine culture negative. Plan -Zosyn, start PO levaquin, 4 more days of abx use needed. -Sputum culture Qualifiers: Pneumonia type: due to unspecified organism Laterality: left Lung location: lower lobe of lung Qualified Code(s): J18.1 - Lobar pneumonia, unspecified organism (4) CHF (congestive heart failure) Current Visit: No Status: Chronic Assessment and plan: -Head of bed needs to be elevated at 30 degrees most of time due to CHF. This is not feasible in an ordinary bed. Qualifiers: Congestive heart failure type: unspecified congestive heart failure type Congestive heart failure chronicity: acute Qualified Code(s): I50.9 - Heart failure, unspecified (5) Lrjcp-4-oirmugtcasp deficiency Current Visit: No Status: Chronic - Subjective Interval history: seen and examined looks very pale. no acute or occult bleeding noted. - Constitutional Vitals: Temp Pulse Resp BP Pulse Ox 97.8 F 69 16 100/61 94 L 01/01/17 11:00 01/01/17 11:00 01/01/17 16:26 01/01/17 11:00 01/01/17 16:26 General appearance: Present: cooperative, A&O X 3, pleasant, no acute distress - Head Head exam: Present: atraumatic, normocephalic - Eye Eye exam: Present: PERRL, conjuntiva pink, sclera anicteric Pupils: Present: PERRL - Neck Neck exam general surgery: Present: supple, trachea midline. Absent: lymphadenopathy - Respiratory Respiratory exam: Present: CTAB. Absent: accessory muscle use, rales, rhonchi, wheezes - Cardiovascular Cardiovascular exam: Present: RRR, +S1, +S2. Absent: diastolic murmur, gallop, rubs, systolic murmur - GI/Abdominal GI/Abdominal exam: Present: normal bowel sounds, soft, no peritoneal signs. Absent: distended, tenderness - Extremities Exam Extremities exam: Present: warm, radial pulses palpable and symetrical. Absent : calf tenderness, cyanotic, pedal edema - Neurological Exam Neurological exam: Present: CN II-XII intact, oriented X3, no focal deficits. Absent: pronater drift, facial droop, speech deficit - Skin Skin exam: Present: dry, intact Internal Medicine: Result - Labs CBC & Chem 7: 01/01/17 02:50 01/01/17 02:50 Labs: Short CBC 01/01/17 Range/Units 02:50 Hgb 7.0 L (12.9-16.9) g/dL Hct 20.7 L (37.5-50.1) % BMP 01/01/17 02:50 Sodium 133 L Potassium 3.8 Chloride 104 Carbon Dioxide 22 BUN 9 Creatinine 0.99 Glucose 139 H Calcium 7.8 L - ABG Interpretation ABG results: PT/INR, D-dimer PT 21.9 Seconds (9.4-12.1) H 12/30/16 10:18 Consult Discharge Plan - Plan Instructions: Heart Failure (DC), Cirrhosis (DC), Cirrhosis (GEN), Urinary Tract Infection in Men (DC), Diabetes Mellitus Type 2 in Adults (DC), Viral Hepatitis B (DC), Viral Hepatitis B (GEN), Chronic Obstructive Pulmonary Disease (DC), Chronic Hypertension (DC), Abdominal Paracentesis (DC), Ascites ( DC), Ascites (GEN), Viral Hepatitis B, Manager Lsw (GEN) Additional Instructions: Follow-up appointments: If there is not an appointment listed below, please call your physician and schedule a follow-up appointment. If you have congestive heart failure and your symptoms return, make an appointment with your physician. Symptoms: If your condition changes or you experience any of the following symptoms, notify your physician immediately: Unusual or worsening pain, fever, persistent nausea and vomiting, bleeding, increase in swelling (especially in your legs), sudden weight gain, extreme dizziness, chest pain, increased drainage or redness from a wound or incision. Go to the emergency department if you experience a problem with breathing. Weights: If you have a history of swelling or shortness of breath, weigh yourself daily and notify your physician if you have a weight gain of two or more pounds in one day or 5 or more pounds in a week. If you experience any of the warning signs for stroke: Sudden numbness or weakness of the face, arm or leg; especially on one side of the body, sudden confusion, trouble speaking or understanding, sudden trouble seeing in one or both eyes, sudden trouble walking, dizziness, loss of balance or coordination, sudden sever headache with no cause; Call 911 or go to the emergency room. Stroke is a medical emergency. Some risk factors for stroke: Age, cigarette smoking, diabetes, excessive alcohol consumption, family history , high blood pressure, overweight, physical inactivity, prior stroke, heart attack, diagnosis of carotid artery stenosis or other artery disease. If you smoke, STOP: Smoking or tobacco use significantly increases your risk of heart and lung disease. Your chance of disease greatly increases if you continue to smoke. For more information, call the [place] tobacco quit line for smoking cessation QUIT-NOW ( ) Referrals: Tiny Santo DO [Primary Care Provider] - 01/04/17 2:00 pm
[2017-01-01] MEDS: 0.9 % Sodium Chloride 1,000 ML IVC SCH (18:07)
[2017-01-01] MEDS: ALPRAZolam 0.5 MG TABLET PO PRN (20:53)
[2017-01-02] MEDS: Lactulose Oral Soln 20 GM/30 ML UDC PO SCH ×13 (00:33→22:59)
[2017-01-02] MEDS: Ipratropium/Albuterol Neb 3 ML IH SCH ×7 (00:50→23:16)
[2017-01-02 05:45] LABS: Immature Granulocytes % 0.7 % (0-4); Mean Corpuscular Hemoglobin 31.4 pg (28.0-33.3); Monocytes % 15.1 %; Red Cell Distribution Width 15.9 % (11.5-14.5)
[2017-01-02 05:47] LABS: Basophils % 0.5 %; Eosinophils # 0.3 K/mcL (0.0-0.6); Eosinophils % 6.2 %; Hematocrit 21.9 % (37.5-50.1); Hemoglobin 7.1 g/dL (12.9-16.9); Immature Platelets 3.7 % (1.1-6.1); Lymphocytes # 0.9 K/mcL (0.6-4.6); Lymphocytes % 20.6 %; Mean Corpuscular HGB Conc 32.4 g/dL (31.6-35.5); Mean Corpuscular Volume 96.9 fL (83.0-100.0); Mean Platelet Volume 10.6 fL (9.4-12.4); Monocytes # 0.7 K/mcL (0.0-1.3); Neutrophils # 2.5 K/mcL (1.6-8.9); Red Blood Count 2.26 M/mcL (4.19-5.50); Segmented Neutrophils % 56.9 %
[2017-01-02 05:54] LABS: Platelet Count 94 K/mcL (140-400)
[2017-01-02 06:04] LABS: BUN/Creatinine Ratio 12 (6-26); Blood Urea Nitrogen 11 mg/dL (8-26); Calcium 7.9 mg/dL (8.6-10.8); Carbon Dioxide 26 mEq/L (19-29); Chloride 104 mEq/L (98-109); Glucose 110 mg/dL (70-99); Osmolality,Calculated 278 (280-300); Potassium 4.2 mEq/L (3.5-4.5); Sodium 134 mEq/L (136-145); eGFR For African Americans > 60 (> 60); eGFR For Non-African Americans > 60 (> 60)
[2017-01-02] MEDS: *HR* OxyCODONE Immed Rel 15 MG TABLET PO PRN ×2 (06:11→16:43)
[2017-01-02] MEDS: Budesonide/Formoterol 160/4.5 MDI IH SCH ×2 (07:47→20:40)
[2017-01-02] MEDS: levoFLOXacin 500 MG TABLET PO SCH (09:47)
[2017-01-02] MEDS: Furosemide 40 MG TABLET PO SCH ×2 (09:48→16:43)
[2017-01-02] MEDS: Magnesium Oxide 400 MG TABLET PO SCH ×2 (09:48→20:10)
[2017-01-02] MEDS: Zinc Sulfate 220 MG CAPSULE PO SCH (09:48)
[2017-01-02] MEDS: Pregabalin 75 MG CAPSULE PO SCH ×2 (09:48→20:11)
[2017-01-02] MEDS: 0.9 % Sodium Chloride 1,000 ML IVC SCH (14:48)
--- NOTE | 2017-01-02 18:06 | Internal Med Progress Note ---
Date of Encounter: 01/02/17 Time of Encounter: 18:04 - Assessment and plan (1) Cirrhosis of liver with ascites Current Visit: Yes Status: Acute Assessment and plan: 12/29 -Patient has history of Hep B and antitrypsin deficiency and Weekly paracentesis. -Presented with AMS, imaging showed possible pneumonia, labs revealed elevated ammonia. -There was concern for SBP and paracentesis ordered by IR for culture and albumin given for hepatorenal syndrome. However, no peritoneal signs or fluid distension, so SBP low on differential. -Elevated ammonia that is trending down and patients symptoms resolving on lactulose. AMS likely due to hepatic encephalopathy. -Patient denies alcohol use over the past year. Ativan ordered PRN as precaution for alcohol with drawl. -Blood cultures ordered. Plan -Continue current treatment including lactulose. -Redraw labs, including ammonia. No need to redraw Tuesday if trending down and patients symptoms improving. - 2 -Abdomen slightly more distended. Denies abdominal pain -GI on boards Plan -Following GI recommendations per medication changes 12/31/16 -Increase abdominal swelling. Patient undergoes weekly paracentesis. This is baseline for him -Not confused. Resting comfortably in bed. Plan -Continue therapy. Follow GI recommendations -Checking Hep B viral load -Likely discharge on Tuesday. 01/01/2017 Noted that patient's Hb dropped will transfuse 2 PRBCs no obvious bleeding noted. will follow GI recommendations. 01/02/2017 still awaiting for transfusion no bleeding noted. spoke to GI and updated regarding transfusion. Qualifiers: Hepatic cirrhosis type: unspecified hepatic cirrhosis Qualified Code(s): K74.60 - Unspecified cirrhosis of liver (2) Hepatic encephalopathy Current Visit: Yes Status: Acute Assessment and plan: -See above (3) Pneumonia Current Visit: No Status: Acute Assessment and plan: 12/29 -Presented with productive cough. Chest x-ray revealed left lower lobe airspace opacity. Normal lactic acid. Normal white blood cell count. Plan -Continue abx and breathing treatments. 12/30 -Patient feels like his breathing has improved -Does have a productive cough -Sputum culture order to evaluate Plan -Vanc stopped. -Culture ordered 12/31/16 -Patient not having productive cough, fever, tachy, increased Respiratory rate, leukocytosis. Is able to take oral medication -CXR on 12/28 shows possible pneumonia. -BC and urine culture negative. Plan -Zosyn, start PO levaquin, 4 more days of abx use needed. -Sputum culture Qualifiers: Pneumonia type: due to unspecified organism Laterality: left Lung location: lower lobe of lung Qualified Code(s): J18.1 - Lobar pneumonia, unspecified organism (4) CHF (congestive heart failure) Current Visit: No Status: Chronic Assessment and plan: -Head of bed needs to be elevated at 30 degrees most of time due to CHF. This is not feasible in an ordinary bed. Qualifiers: Congestive heart failure type: unspecified congestive heart failure type Congestive heart failure chronicity: acute Qualified Code(s): I50.9 - Heart failure, unspecified (5) [id number]-6-irebcoibyuq deficiency Current Visit: No Status: Chronic - Subjective Interval history: seen and examined looks very pale. no acute or occult bleeding noted. 01/02/2017 no new changes patient is eating well awaiting transfusion. - Constitutional Vitals: Temp Pulse Resp BP Pulse Ox 97.9 F 60 18 120/68 99 01/02/17 15:27 01/02/17 15:27 01/02/17 16:35 01/02/17 15:27 01/02/17 16:35 General appearance: Present: cooperative, A&O X 3, pleasant, no acute distress - Head Head exam: Present: atraumatic, normocephalic - Eye Eye exam: Present: PERRL, conjuntiva pink, sclera anicteric Pupils: Present: PERRL - Neck Neck exam general surgery: Present: supple, trachea midline. Absent: lymphadenopathy - Respiratory Respiratory exam: Present: CTAB. Absent: accessory muscle use, rales, rhonchi, wheezes - Cardiovascular Cardiovascular exam: Present: RRR, +S1, +S2. Absent: diastolic murmur, gallop, rubs, systolic murmur - GI/Abdominal GI/Abdominal exam: Present: normal bowel sounds, soft, no peritoneal signs. Absent: distended, tenderness - Extremities Exam Extremities exam: Present: warm, radial pulses palpable and symetrical. Absent : calf tenderness, cyanotic, pedal edema - Neurological Exam Neurological exam: Present: CN II-XII intact, oriented X3, no focal deficits. Absent: pronater drift, facial droop, speech deficit - Skin Skin exam: Present: dry, intact Internal Medicine: Result - Labs CBC & Chem 7: 01/02/17 05:15 01/02/17 05:31 Labs: Short CBC 01/02/17 Range/Units 05:15 WBC 4.4 (4.3-11.1) K/mcL Hgb 7.1 L (12.9-16.9) g/dL Hct 21.9 L (37.5-50.1) % Plt Count 94 L (140-400) K/mcL Neutrophils # 2.5 (1.6-8.9) K/mcL BMP 01/02/17 05:31 Sodium 134 L Potassium 4.2 Chloride 104 Carbon Dioxide 26 BUN 11 Creatinine 0.89 Glucose 110 H Calcium 7.9 L - ABG Interpretation ABG results: PT/INR, D-dimer PT 21.9 Seconds (9.4-12.1) H 12/30/16 10:18 Consult Discharge Plan - Plan Instructions: Heart Failure (DC), Cirrhosis (DC), Cirrhosis (GEN), Urinary Tract Infection in Men (DC), Diabetes Mellitus Type 2 in Adults (DC), Viral Hepatitis B (DC), Viral Hepatitis B (GEN), Chronic Obstructive Pulmonary Disease (DC), Chronic Hypertension (DC), Abdominal Paracentesis (DC), Ascites ( DC), Ascites (GEN), Viral Hepatitis B, Assembler Tractor (GEN) Additional Instructions: Follow-up appointments: If there is not an appointment listed below, please call your physician and schedule a follow-up appointment. If you have congestive heart failure and your symptoms return, make an appointment with your physician. Symptoms: If your condition changes or you experience any of the following symptoms, notify your physician immediately: Unusual or worsening pain, fever, persistent nausea and vomiting, bleeding, increase in swelling (especially in your legs), sudden weight gain, extreme dizziness, chest pain, increased drainage or redness from a wound or incision. Go to the emergency department if you experience a problem with breathing. Weights: If you have a history of swelling or shortness of breath, weigh yourself daily and notify your physician if you have a weight gain of two or more pounds in one day or 5 or more pounds in a week. If you experience any of the warning signs for stroke: Sudden numbness or weakness of the face, arm or leg; especially on one side of the body, sudden confusion, trouble speaking or understanding, sudden trouble seeing in one or both eyes, sudden trouble walking, dizziness, loss of balance or coordination, sudden sever headache with no cause; Call 911 or go to the emergency room. Stroke is a medical emergency. Some risk factors for stroke: Age, cigarette smoking, diabetes, excessive alcohol consumption, family history , high blood pressure, overweight, physical inactivity, prior stroke, heart attack, diagnosis of carotid artery stenosis or other artery disease. If you smoke, STOP: Smoking or tobacco use significantly increases your risk of heart and lung disease. Your chance of disease greatly increases if you continue to smoke. For more information, call the [place] tobacco quit line for smoking cessation QUIT-NOW ( ) Referrals: Tiny Santo DO [Primary Care Provider] - 01/04/17 2:00 pm
[2017-01-03] MEDS: Lactulose Oral Soln 20 GM/30 ML UDC PO SCH ×12 (00:12→22:37)
[2017-01-03] MEDS: *HR* OxyCODONE Immed Rel 15 MG TABLET PO PRN ×3 (03:01→16:12)
[2017-01-03] MEDS: Ipratropium/Albuterol Neb 3 ML IH SCH ×6 (04:46→23:42)
--- NOTE | 2017-01-03 07:01 | Internal Med Progress Note ---
<Brett Li - Last Filed: 01/03/17 12:13> Date of Encounter: 01/03/17 Time of Encounter: 07:30 - Assessment and plan (1) Cirrhosis of liver with ascites Current Visit: Yes Status: Acute Assessment and plan: 12/29 -Patient has history of Hep B and antitrypsin deficiency and Weekly paracentesis. -Presented with AMS, imaging showed possible pneumonia, labs revealed elevated ammonia. -There was concern for SBP and paracentesis ordered by IR for culture and albumin given for hepatorenal syndrome. However, no peritoneal signs or fluid distension, so SBP low on differential. -Elevated ammonia that is trending down and patients symptoms resolving on lactulose. AMS likely due to hepatic encephalopathy. -Patient denies alcohol use over the past year. Ativan ordered PRN as precaution for alcohol with drawl. -Blood cultures ordered. Plan -Continue current treatment including lactulose. -Redraw labs, including ammonia. No need to redraw Tuesday if trending down and patients symptoms improving. - 12/30 -Abdomen slightly more distended. Denies abdominal pain -GI on boards Plan -Following GI recommendations per medication changes 12/31/16 -Increase abdominal swelling. Patient undergoes weekly paracentesis. This is baseline for him -Not confused. Resting comfortably in bed. Plan -Continue therapy. Follow GI recommendations -Checking Hep B viral load -Likely discharge on Tuesday. 01/01/2017 Noted that patient's Hb dropped will transfuse 2 PRBCs no obvious bleeding noted. will follow GI recommendations. 01/02/2017 still awaiting for transfusion no bleeding noted. spoke to GI and updated regarding transfusion. 01/03/17 -Hep B viral load extremely high. GI on case. Called for further management. -Weekly paracentesis on . -Called transfusion services. Patient will be transfused today -Monitor for today. redraw H&H tonight. -Give another transfusion if <7 -If stable and >7, then can be discharged home tomorrow. Qualifiers: Hepatic cirrhosis type: unspecified hepatic cirrhosis Qualified Code(s): K74.60 - Unspecified cirrhosis of liver (2) Hepatic encephalopathy Current Visit: Yes Status: Acute Assessment and plan: -See above (3) Hepatitis B Current Visit: No Status: Chronic Assessment and plan: 12/31/16 -Checking Viral load 01/03/17 -High viral load -GI on board. -Called for recommendations on further management. They will see patient tomorrow morning to discuss treatment. Qualifiers: Viral hepatitis chronicity: chronic Hepatic coma status: without hepatic coma Hepatitis delta agent presence: without delta-agent Qualified Code(s): B18.1 - Chronic viral hepatitis B without delta-agent (4) Pneumonia Current Visit: No Status: Acute Assessment and plan: 12/29 -Presented with productive cough. Chest x-ray revealed left lower lobe airspace opacity. Normal lactic acid. Normal white blood cell count. Plan -Continue abx and breathing treatments. 12/30 -Patient feels like his breathing has improved -Does have a productive cough -Sputum culture order to evaluate Plan -Vanc stopped. -Culture ordered 12/31/16 -Patient not having productive cough, fever, tachy, increased Respiratory rate, leukocytosis. Is able to take oral medication -CXR on 12/28 shows possible pneumonia. -BC and urine culture negative. Plan -Zosyn, start PO levaquin, 4 more days of abx use needed. -Sputum culture 01/03/17 -Patient complains of cough, non productive. Not worsening. He does have SOB, but this is normal for him Plan -Continue Levaquin -No need to reimage at this time. Patient condition improving Qualifiers: Pneumonia type: due to unspecified organism Laterality: left Lung location: lower lobe of lung Qualified Code(s): J18.1 - Lobar pneumonia, unspecified organism (5) Chronic anemia Current Visit: No Status: Acute Assessment and plan: -Chronic Anemia of unknown cause. patient denies any bleeding -Patient hgb measured <7. Redraw revealed hgb >8.0. Cancelled transfusion. Continue to monitor -Iron studies reveal iron deficiency anemia. -B12, Folate obtained Plan -Transfuse if <7 1 PRBC -Hgb improving and patient is eating now. No need for iron supplementation at this time. 12/31/16 Plan -Transfuse 1 unit PRBC if hgb <7 01/03/17 -Patient being transfused today 2 units RBC (original order) -Recheck H&H (6) CHF (congestive heart failure) Current Visit: No Status: Chronic Qualifiers: Congestive heart failure type: unspecified congestive heart failure type Congestive heart failure chronicity: acute Qualified Code(s): I50.9 - Heart failure, unspecified (7) Electrolyte and fluid disorder Current Visit: Yes Status: Acute (8) Wcroz-0-yjotrvqdrln deficiency Current Visit: No Status: Chronic - Subjective Interval history: Patient is resting calmly in bed. Able to answer questions appropriately. Alert and oriented 3. He has no questions or concerns. Admits to SOB, that is chronic. Denies headache, blurry vision, dizziness, confusion, chest pain, abdominal pain, urinary complaints, blood in the stool or urine. Lives at home with his and son. Denies alcohol use. Has no questions or concerns at this time. Paracentesis last week, no complications. 12/31/16 - patient felt better today compared to yesterday. -Feels like he his close to his baseline. Denies abdominal pain, N/V/ F/COLVIN -Discussed the care and plan with the patient. All questions and concerns answered. ----- 01/03/17 -Patient feels like he is close to his baseline. Biggest complaint is his cough , non productive. Denies N/V/F. No weakness, SOB or CP - Constitutional Vitals: Temp Pulse Resp BP Pulse Ox 98.0 F 61 16 98/58 96 01/03/17 04:00 01/03/17 04:00 01/03/17 04:46 02/06/17 04:00 01/03/17 04:46 General appearance: Present: cooperative, A&O X 3, pleasant, no acute distress - Head Head exam: Present: atraumatic, normocephalic - Eye Eye exam: Present: PERRL, conjuntiva pink, sclera anicteric Pupils: Present: PERRL - Neck Neck exam general surgery: Present: supple, trachea midline. Absent: lymphadenopathy - Respiratory Respiratory exam: Present: CTAB. Absent: accessory muscle use, rales, rhonchi, wheezes - Cardiovascular Cardiovascular exam: Present: RRR, +S1, +S2. Absent: diastolic murmur, gallop, rubs, systolic murmur - GI/Abdominal GI/Abdominal exam: Present: distended (chronic ascities ), hernia (umbilical. Not incarcerated ), normal bowel sounds, soft, no peritoneal signs. Absent: tenderness - Extremities Exam Extremities exam: Present: warm, radial pulses palpable and symetrical. Absent : calf tenderness, cyanotic, pedal edema - Neurological Exam Neurological exam: Present: CN II-XII intact, oriented X3, no focal deficits. Absent: pronater drift, facial droop, speech deficit - Skin Skin exam: Present: dry, intact Internal Medicine: Result - Labs CBC & Chem 7: 01/02/17 05:15 01/02/17 05:31 - ABG Interpretation ABG results: PT/INR, D-dimer PT 21.9 Seconds (9.4-12.1) H 12/30/16 10:18 Consult Discharge Plan - Plan Instructions: Heart Failure (DC), Cirrhosis (DC), Cirrhosis (GEN), Urinary Tract Infection in Men (DC), Diabetes Mellitus Type 2 in Adults (DC), Viral Hepatitis B (DC), Viral Hepatitis B (GEN), Chronic Obstructive Pulmonary Disease (DC), Chronic Hypertension (DC), Abdominal Paracentesis (DC), Ascites ( DC), Ascites (GEN), Viral Hepatitis B, Puzzle Assembler (GEN) Additional Instructions: Follow-up appointments: If there is not an appointment listed below, please call your physician and schedule a follow-up appointment. If you have congestive heart failure and your symptoms return, make an appointment with your physician. Symptoms: If your condition changes or you experience any of the following symptoms, notify your physician immediately: Unusual or worsening pain, fever, persistent nausea and vomiting, bleeding, increase in swelling (especially in your legs), sudden weight gain, extreme dizziness, chest pain, increased drainage or redness from a wound or incision. Go to the emergency department if you experience a problem with breathing. Weights: If you have a history of swelling or shortness of breath, weigh yourself daily and notify your physician if you have a weight gain of two or more pounds in one day or 5 or more pounds in a week. If you experience any of the warning signs for stroke: Sudden numbness or weakness of the face, arm or leg; especially on one side of the body, sudden confusion, trouble speaking or understanding, sudden trouble seeing in one or both eyes, sudden trouble walking, dizziness, loss of balance or coordination, sudden sever headache with no cause; Call 911 or go to the emergency room. Stroke is a medical emergency. Some risk factors for stroke: Age, cigarette smoking, diabetes, excessive alcohol consumption, family history , high blood pressure, overweight, physical inactivity, prior stroke, heart attack, diagnosis of carotid artery stenosis or other artery disease. If you smoke, STOP: Smoking or tobacco use significantly increases your risk of heart and lung disease. Your chance of disease greatly increases if you continue to smoke. For more information, call the [place] tobacco quit line for smoking cessation 6-226- QUIT-NOW ( ) Referrals: Tiny Santo DO [Primary Care Provider] - 01/11/17 3:30 pm <Jamal Orr - Last Filed: 01/03/17 18:35> Date of Encounter: 01/03/17 - Assessment and plan (1) Cirrhosis of liver with ascites Current Visit: Yes Status: Acute Qualifiers: Hepatic cirrhosis type: unspecified hepatic cirrhosis Qualified Code(s): K74.60 - Unspecified cirrhosis of liver (2) Hepatic encephalopathy Current Visit: Yes Status: Acute (3) Pneumonia Current Visit: No Status: Acute Qualifiers: Pneumonia type: due to unspecified organism Laterality: left Lung location: lower lobe of lung Qualified Code(s): J18.1 - Lobar pneumonia, unspecified organism (4) CHF (congestive heart failure) Current Visit: No Status: Chronic Qualifiers: Congestive heart failure type: unspecified congestive heart failure type Congestive heart failure chronicity: acute Qualified Code(s): I50.9 - Heart failure, unspecified (5) Ejonx-1-fcfqyscesow deficiency Current Visit: No Status: Chronic - Constitutional Vitals: Temp Pulse Resp BP Pulse Ox 97.4 F L 62 16 101/59 95 01/03/17 18:14 01/03/17 18:14 01/03/17 18:14 01/03/17 18:14 01/03/17 18:14 Internal Medicine: Result - Labs CBC & Chem 7: 01/02/17 05:15 01/02/17 05:31 - ABG Interpretation ABG results: PT/INR, D-dimer PT 21.9 Seconds (9.4-12.1) H 12/30/16 10:18 - Attending Attestation I examined this patient and my medical decision-making was reviewed with the ANIMAL NURSERY WORKER/PA/Advanced Practice Nurse/Resident Physician. I agree with the documented findings, disposition and treatment plan as described except to the extent set forth below.
[2017-01-03 07:41] LABS: HBV Quant Interpretation DETECTED (Not Detected); HBV Quant Log by PCR 8.1 log IU
[2017-01-03] MEDS: Budesonide/Formoterol 160/4.5 MDI IH SCH ×2 (08:00→20:22)
[2017-01-03] MEDS: Furosemide 40 MG TABLET PO SCH ×2 (09:46→16:12)
[2017-01-03] MEDS: Magnesium Oxide 400 MG TABLET PO SCH ×2 (09:47→20:57)
[2017-01-03] MEDS: levoFLOXacin 500 MG TABLET PO SCH (09:47)
[2017-01-03] MEDS: Pregabalin 75 MG CAPSULE PO SCH ×2 (09:47→20:57)
[2017-01-03] MEDS: 0.9 % Sodium Chloride 1,000 ML IVC SCH (09:47)
[2017-01-03] MEDS: Zinc Sulfate 220 MG CAPSULE PO SCH (09:48)
[2017-01-03] MEDS ORDERED: 0.9 % Sodium Chloride 250 ML ONE (12:50)
[2017-01-03 23:28] LABS: Hematocrit 28.4 % (37.5-50.1)
[2017-01-03 23:29] LABS: Hemoglobin 9.4 g/dL (12.9-16.9)
[2017-01-04] MEDS: Lactulose Oral Soln 20 GM/30 ML UDC PO SCH ×12 (00:35→22:49)
[2017-01-04] MEDS: Ipratropium/Albuterol Neb 3 ML IH SCH ×6 (04:11→23:51)
[2017-01-04] MEDS: Budesonide/Formoterol 160/4.5 MDI IH SCH ×2 (07:59→20:20)
[2017-01-04 08:30] LABS: Basophils # 0.1 K/mcL (0.0-0.2); Basophils % 0.7 %; Eosinophils # 0.3 K/mcL (0.0-0.6); Eosinophils % 3.4 %; Hematocrit 29.2 % (37.5-50.1); Hemoglobin 9.5 g/dL (12.9-16.9); Immature Granulocytes % 0.4 % (0-4); Lymphocytes # 1.5 K/mcL (0.6-4.6); Mean Corpuscular HGB Conc 32.5 g/dL (31.6-35.5); Mean Corpuscular Hemoglobin 30.7 pg (28.0-33.3); Mean Corpuscular Volume 94.5 fL (83.0-100.0); Mean Platelet Volume 10.6 fL (9.4-12.4); Monocytes # 1.4 K/mcL (0.0-1.3); Monocytes % 16.3 %; Neutrophils # 5.3 K/mcL (1.6-8.9); Platelet Count 113 K/mcL (140-400); Red Blood Count 3.09 M/mcL (4.19-5.50); Red Cell Distribution Width 17.3 % (11.5-14.5); Segmented Neutrophils % 62.2 %
[2017-01-04 08:43] LABS: BUN/Creatinine Ratio 16 (6-26); Blood Urea Nitrogen 15 mg/dL (8-26); Calcium 8.6 mg/dL (8.6-10.8); Carbon Dioxide 24 mEq/L (19-29); Chloride 106 mEq/L (98-109); Glucose 115 mg/dL (70-99); Osmolality,Calculated 282 (280-300); Potassium 4.3 mEq/L (3.5-4.5); Sodium 135 mEq/L (136-145); eGFR For African Americans > 60 (> 60); eGFR For Non-African Americans > 60 (> 60)
--- NOTE | 2017-01-04 09:31 | Discharge Summary ---
<Jeremiah Lion Ky - Last Filed: 01/05/17 13:06> Date of Encounter: 01/05/17 Time of Encounter: 08:00 - Discharge Diagnosis (1) Cirrhosis of liver with ascites Status: Acute Qualifiers: Hepatic cirrhosis type: unspecified hepatic cirrhosis Qualified Code(s): K74.60 - Unspecified cirrhosis of liver (2) Hepatic encephalopathy Status: Acute (3) Hepatitis B Status: Chronic Qualifiers: Viral hepatitis chronicity: chronic Hepatic coma status: without hepatic coma Hepatitis delta agent presence: without delta-agent Qualified Code(s): B18.1 - Chronic viral hepatitis B without delta-agent (4) Pneumonia Status: Acute Qualifiers: Pneumonia type: due to unspecified organism Laterality: left Lung location: lower lobe of lung Qualified Code(s): J18.1 - Lobar pneumonia, unspecified organism (5) Chronic anemia Status: Acute (6) CHF (congestive heart failure) Status: Chronic Qualifiers: Congestive heart failure type: unspecified congestive heart failure type Congestive heart failure chronicity: acute Qualified Code(s): I50.9 - Heart failure, unspecified (7) Electrolyte and fluid disorder Status: Acute (8) Kxwkp-8-bfhaojcuxtf deficiency Status: Chronic - Discharge Medications Prescriptions: Lactulose 20 gm PO Q2HR #30 udc Rifaximin [Xifaxan] 550 mg PO BID 30 Days Spironolactone [Aldactone] 100 mg PO BID #30 tablet Zinc Sulfate 220 mg PO DAILY #30 capsule Home Medications: Amitriptyline [Elavil] 50 mg PO HS 10/06/15 [History] Oxygen 2 - 4 l NS CONT 08/18/16 [History] Aqpym-6-Dxmmpdwkan Inhibitor [Glassia] 10 mg IV QWEEK 09/18/16 [History] Albuterol Sulfate [Proair Respiclick] 2 puff IH Q4H PRN #1 aer.pow.[email or web address] 10/11/16 [ Rx] Alprazolam [Xanax 1 MG Tablet] 0.5 mg PO BID PRN #20 10/11/16 [Rx] Budesonide/Formoterol 160/4.5 [Symbicort 160/4.5] 2 puff IH BID #1 10/11/16 [Rx ] Ipratropium/Albuterol Neb [Duoneb] 3 ml IH Q4HR PRN 30 Days 10/11/16 [Rx] Magnesium Oxide [Mag-Ox] 800 mg PO BID #120 tablet 10/11/16 [Rx] Nadolol [Corgard] 20 mg PO HS #30 tablet 10/11/16 [Rx] Oxycodone HCl 15 mg PO Q4H PRN #15 tablet 10/11/16 [Rx] Pregabalin [Lyrica] 75 mg PO BID #30 capsule 10/11/16 [Rx] Prochlorperazine Maleate [Compazine] 10 mg PO Q6HR PRN #20 10/11/16 [Rx] Rifaximin [Xifaxan] 550 mg PO BID #60 tablet 10/11/16 [Rx] Sucralfate [Carafate] 1 gm PO QID 30 Days 10/11/16 [Rx] Ranitidine HCl [Acid Evaluation Advisor] 150 mg PO BID 10/17/16 [History] Spironolactone [Aldactone] 100 mg PO BID #60 tablet 10/21/16 [Rx] Pantoprazole Sodium [Protonix] 40 mg PO BID 11/01/16 [History] Lactulose 30 gm PO TID 30 Days 11/08/16 [Rx] Furosemide [Lasix] 40 mg PO DAILY #30 tablet 11/20/16 [Rx] Ondansetron HCl [Zofran] 4 mg PO AD PRN 12/28/16 [History] Lactulose 20 gm PO Q2HR #30 udc 01/04/17 [Rx] Rifaximin [Xifaxan] 550 mg PO BID 30 Days 01/04/17 [Rx] Spironolactone [Aldactone] 100 mg PO BID #30 tablet 01/04/17 [Rx] Zinc Sulfate 220 mg PO DAILY #30 capsule 01/04/17 [Rx] Allergies/Adverse Reactions: Allergies No Known Allergies Allergy (Verified 12/16/16 22:42) Procedures/tests Complete & Pending: Procedures Performed prior 72 hours Category Date Time Status IR paracentesis ultrasound [IR] Routine IR 01/04/17 Ordered Date of admission: 12/28/16 13:00 Primary care physician: Tiny Santo DO Consults: 12/28/16 18:44 Consult to Magnetic Resonance Technologist [CONS] Routine Reason for SW Consult: discharge planning 12/29/16 12:39 Consult to Gastroenterology [CONS] Routine Consulting Provider: Lor Hughes Reason for Consult: Anemia. EDG/Colonoscopy. GI has already evaluated patient. Proceedure tomorrow. Call Completed: Yes 12/30/16 10:41 Consult to Speech Therapy [CONS] Routine Comment: Evaluate, develop and implement POC Reason for Consult: Swallow eval Call Completed: No Discharging clinician: Brett Li Anticipated date of discharge: 01/05/17 - Patient Status Disposition: Admitted As Inpatient Condition: Fair Functional capacity at discharge: wheelchair bound Overall status at discharge: patient is progressing back to baseline - Discharge Instructions Instructions: Heart Failure (DC), Cirrhosis (DC), Cirrhosis (GEN), Urinary Tract Infection in Men (DC), Diabetes Mellitus Type 2 in Adults (DC), Viral Hepatitis B (DC), Viral Hepatitis B (GEN), Chronic Obstructive Pulmonary Disease (DC), Chronic Hypertension (DC), Abdominal Paracentesis (DC), Ascites ( DC), Ascites (GEN), Viral Hepatitis B, Seasonal Sales Associate (GEN) Follow Up With: Tiny Santo DO [Primary Care Provider] - 01/11/17 3:30 pm (Admitted on 12/28 for hepatic encephalopathy, pneumonia, chronic anemia. Started on lactulose, abx and transfused 2 units of Red blood Cells. Tenovivir for elevated Hep B viral load ordered to be picked up at pharmacy. ) Additional Instructions: Follow-up appointments: If there is not an appointment listed below, please call your physician and schedule a follow-up appointment. If you have congestive heart failure and your symptoms return, make an appointment with your physician. Symptoms: If your condition changes or you experience any of the following symptoms, notify your physician immediately: Unusual or worsening pain, fever, persistent nausea and vomiting, bleeding, increase in swelling (especially in your legs), sudden weight gain, extreme dizziness, chest pain, increased drainage or redness from a wound or incision. Go to the emergency department if you experience a problem with breathing. Weights: If you have a history of swelling or shortness of breath, weigh yourself daily and notify your physician if you have a weight gain of two or more pounds in one day or 5 or more pounds in a week. If you experience any of the warning signs for stroke: Sudden numbness or weakness of the face, arm or leg; especially on one side of the body, sudden confusion, trouble speaking or understanding, sudden trouble seeing in one or both eyes, sudden trouble walking, dizziness, loss of balance or coordination, sudden sever headache with no cause; Call 911 or go to the emergency room. Stroke is a medical emergency. Some risk factors for stroke: Age, cigarette smoking, diabetes, excessive alcohol consumption, family history , high blood pressure, overweight, physical inactivity, prior stroke, heart attack, diagnosis of carotid artery stenosis or other artery disease. If you smoke, STOP: Smoking or tobacco use significantly increases your risk of heart and lung disease. Your chance of disease greatly increases if you continue to smoke. For more information, call the [employer] quit line for smoking cessation 8-156- QUIT-NOW ( ) - Diet and Activity Activity: increase activity as tolerated Diet: advance to your usual diet Interval History: On 01/05/17. Patient more lethargic today compared to yesterday. When woken up, patient goes back to sleep. He does answer questions appropriately. at bedside. When speaking to her, she states that he lost is 34 y/o son in June 2016 and is depressed. Patient has been refusing his lactulose and amonia is increased today 79. Patient encouraged to take lactulose and has been taking the medication. Repeat CXR on 01/05/17 compared to 12/28/16 shows resolving pneumonia. Discussed with at bedside and facilitating a transfer to in [place], [place]. Spoke with the Attending at . Patient accepted and awaiting bed to open to be transferred. Hospital course: Mr. Zelaya is a 56 year old male, PMH of cirrhosis, antitrypsin 1 deficiency and weekly paracentesis for ascites, admitted for hepatic encephalopathy, pneumonia, anemia on 12/28/16. In the ER a chest x-ray was conducted. Showed possible left-sided pneumonia, patient has productive cough. Blood and urine culture negative. Patient was started on antibiotics. On 12/31/16, patient was switched to Levaquin 500 mg. Throughout the cause hospital course patient states that he has some mild shortness of breath has improved. He does have chronic shortness of breath, most likely from his ascites/alpha 1 antitrypsin deficiency. Repeat CXR on 01/05/17 shows resolving pneumonia. Hepatic encephalopathy treatment: Ammonia level elevated, patient started on lactulose. Mental status improved throughout his course. GI consulted and followed their recommendations. Hep B viral load high. Patient will be treated on tenofovir as an outpatient. Prescription has been called in by GI. Paracentesis conducted on 01/04/17. No complications and patient states that he is more comfortable. Anemia: Patient has chronic anemia. On 01/01/17 2 units of red blood cells ordered. Hemoglobin 9.5 on 01/04/17. No complications. Patient is in the process of trying to qualify for a liver transplant. MELD Score 17. Patient has been accepted to in [facility]. - Time Spent with Patient Total time spent providing and/or coordinating discharge services: Greater than 30 minutes - Constitutional Vitals: Temp Pulse Resp BP Pulse Ox 97.8 F 60 18 98/80 95 01/04/17 06:57 01/04/17 06:57 01/04/17 06:57 01/04/17 06:57 01/04/17 06:57 General appearance: Present: cooperative, A&O X 3, pleasant, answers questions appropriately - Head Head exam: Present: atraumatic, normocephalic - Eye Eye exam: Present: PERRL, conjuntiva pink, sclera anicteric Pupils: Present: PERRL - Neck Neck exam general surgery: Present: supple, trachea midline. Absent: lymphadenopathy - Respiratory Respiratory exam: Present: wheezes. Absent: accessory muscle use, rales, rhonchi - Cardiovascular Cardiovascular exam: Present: RRR, +S1, +S2. Absent: diastolic murmur, gallop, rubs, systolic murmur - GI/Abdominal GI/Abdominal exam: Present: distended, normal bowel sounds, soft, no peritoneal signs. Absent: guarding, tenderness - Extremities Exam Extremities exam: Present: pedal edema, warm, radial pulses palpable and symetrical. Absent: calf tenderness, cyanotic - Neurological Exam Neurological exam: Present: CN II-XII intact, oriented X3, no focal deficits. Absent: pronater drift, facial droop, speech deficit Additional comments: More lethargic today compared to yesterday. patient "did not sleep well because he was going to the bathroom." - Skin Skin exam: Present: dry, intact <Dominga,Jamal P - Last Filed: 01/05/17 17:05> Date of Encounter: 01/05/17 - Discharge Diagnosis (1) Cirrhosis of liver with ascites Priority: Primary Status: Acute Qualifiers: Hepatic cirrhosis type: unspecified hepatic cirrhosis Qualified Code(s): K74.60 - Unspecified cirrhosis of liver (2) Hepatic encephalopathy Priority: Primary Status: Acute (3) Pneumonia Priority: Primary Status: Acute Qualifiers: Pneumonia type: due to unspecified organism Laterality: left Lung location: lower lobe of lung Qualified Code(s): J18.1 - Lobar pneumonia, unspecified organism (4) CHF (congestive heart failure) Priority: Secondary Status: Chronic Qualifiers: Congestive heart failure type: unspecified congestive heart failure type Congestive heart failure chronicity: acute Qualified Code(s): I50.9 - Heart failure, unspecified (5) Vzxdp-4-rfbarqddvhy deficiency Priority: Secondary Status: Chronic Procedures/tests Complete & Pending: Procedures Performed prior 72 hours Category Date Time Status IR paracentesis ultrasound [IR] Routine IR 01/04/17 Completed Date of admission: 12/28/16 13:00 Primary care physician: Tiny Santo DO Consults: 12/28/16 18:44 Consult to Magnetic Resonance Technologist [CONS] Routine Reason for SW Consult: discharge planning 12/29/16 12:39 Consult to Gastroenterology [CONS] Routine Consulting Provider: Gastroentershaun Hughes Reason for Consult: Anemia. EDG/Colonoscopy. GI has already evaluated patient. Proceedure tomorrow. Call Completed: Yes 12/30/16 10:41 Consult to Speech Therapy [CONS] Routine Comment: Evaluate, develop and implement POC Reason for Consult: Swallow eval Call Completed: No 01/04/17 14:23 Consult to Physical Therapy [CONS] Routine Comment: Evaluate, develop and implement POC Hospital course: Mr. Zelaya is a 56 year old male - Time Spent with Patient Total time spent providing and/or coordinating discharge services: - Constitutional Vitals: Temp Pulse Resp BP Pulse Ox 98.9 F 59 16 97/60 98 01/05/17 11:55 01/05/17 11:55 01/05/17 11:55 01/05/17 11:55 01/05/17 11:55 - Attending Attestation I examined this patient and my medical decision-making was reviewed with the CONDITIONING MACHINE OPERATOR/PA/Advanced Practice Nurse/Resident Physician. I agree with the documented findings, disposition and treatment plan as described except to the extent set forth below.
[2017-01-04] MEDS: Magnesium Oxide 400 MG TABLET PO SCH ×2 (09:32→20:42)
[2017-01-04] MEDS: Zinc Sulfate 220 MG CAPSULE PO SCH (09:32)
[2017-01-04] MEDS: Furosemide 40 MG TABLET PO SCH ×2 (09:32→18:34)
[2017-01-04] MEDS: Pregabalin 75 MG CAPSULE PO SCH ×2 (09:32→20:42)
[2017-01-04] MEDS: levoFLOXacin 500 MG TABLET PO SCH (09:32)
[2017-01-04] MEDS: 0.9 % Sodium Chloride 1,000 ML IVC SCH (09:33)
--- NOTE | 2017-01-04 10:18 | Gastroenterology Progress Note ---
<Ky Guajardo - Last Filed: 01/04/17 10:15> Date of Encounter: 01/04/17 Time of Encounter: 09:45 - Assessment and plan (1) Cirrhosis of liver with ascites Current Visit: Yes Status: Acute Assessment and plan: Due to alpha 1 antitrypsin. Pt with appointment with on the for lung/ liver transplant. On 12/30/16 MELD Na 19, Child-Freed class C, and DF 53.8. Paracentesis completed 12/28 with removal of 1.5L. Kidney function WNL, continue Aldactone 100 mg BID and Lasix 40 mg BID. Qualifiers: Hepatic cirrhosis type: unspecified hepatic cirrhosis Qualified Code(s): K74.60 - Unspecified cirrhosis of liver (2) Hepatic encephalopathy Current Visit: Yes Status: Acute Assessment and plan: Likely exacerbated by acute illness. Reduce sedating medications. Continue Lactulose, titrate to 2-4 BM daily, Zinc, and Rifaximin 400 mg TID while inpatient and 550 mg BID while outpatient. (3) Hepatitis B Current Visit: No Status: Chronic Assessment and plan: Viral load positive, will send Tenofovir Rx to local pharmacy to start treatment. 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 He is without acute complaint at this time. - Constitutional Vitals: Temp Pulse Resp BP Pulse Ox 97.8 F 60 18 98/80 95 01/04/17 06:57 01/04/17 06:57 01/04/17 06:57 01/04/17 06:57 01/04/17 06:57 General appearance: Present: cooperative, A&O X 3, no acute distress, answers questions appropriately - Head Head exam: Present: atraumatic, normocephalic - Eye Eye exam: Present: normal appearance, sclera anicteric - ENT ENT exam: Present: mucous membranes moist - Neck Neck exam general surgery: Present: normal inspection, trachea midline - Respiratory Respiratory exam: Present: CTAB. Absent: rales, rhonchi - Cardiovascular Cardiovascular exam: Present: RRR, +S1, +S2 - GI/Abdominal GI/Abdominal exam: Present: distended, soft, no peritoneal signs. Absent: firm , guarding, tenderness - Expanded GI/Abdominal Exam GI/Abdominal exam expanded: Present: ascites - Rectal Rectal exam: Present: deferred - Extremities Exam Extremities exam: Present: warm - Neurological Exam Neurological exam: Present: no focal deficits - Psychiatric Psychiatric exam: Present: normal affect, normal mood - Skin Skin exam: Present: dry, intact, normal color, warm Results - Labs CBC & Chem 7: 01/04/17 08:08 01/04/17 08:08 Labs: Last Result Calcium 8.6 mg/dL (8.6-10.8) 01/04/17 08:08 Iron 29 mcg/dL (65-175) L 12/30/16 04:30 % Saturation 18 % (20-55) L 12/30/16 04:30 Transferrin 112 mg/dL (174-364) L 12/30/16 04:30 Troponin I 0.01 ng/mL (0-0.03) 12/28/16 11:14 Vitamin B12 1258 pg/mL (213-816) H 12/30/16 04:30 Folate 14.1 ng/mL (7.0-31.4) 12/30/16 04:30 Entire Visit Hgb 9.5 g/dL (12.9-16.9) L 01/04/17 08:08 Hct 29.2 % (37.5-50.1) L 01/04/17 08:08 PT 21.9 Seconds (9.4-12.1) H 12/30/16 10:18 Total Bilirubin 1.4 mg/dL (0.2-1.2) H 12/30/16 04:30 AST 53 Units/L (5-34) H 12/30/16 04:30 ALT 19 Units/L (0-55) 12/30/16 04:30 Ammonia 71 mcmol/L (18-72) 12/29/16 05:20 Folate 14.1 ng/mL (7.0-31.4) 12/30/16 04:30 - ABG ABG results: PT/INR, D-dimer PT 21.9 Seconds (9.4-12.1) H 12/30/16 10:18 Consult Discharge Plan - Plan Instructions: Heart Failure (DC), Cirrhosis (DC), Cirrhosis (GEN), Urinary Tract Infection in Men (DC), Diabetes Mellitus Type 2 in Adults (DC), Viral Hepatitis B (DC), Viral Hepatitis B (GEN), Chronic Obstructive Pulmonary Disease (DC), Chronic Hypertension (DC), Abdominal Paracentesis (DC), Ascites ( DC), Ascites (GEN), Viral Hepatitis B, Manager Route (GEN) Additional Instructions: Follow-up appointments: If there is not an appointment listed below, please call your physician and schedule a follow-up appointment. If you have congestive heart failure and your symptoms return, make an appointment with your physician. Symptoms: If your condition changes or you experience any of the following symptoms, notify your physician immediately: Unusual or worsening pain, fever, persistent nausea and vomiting, bleeding, increase in swelling (especially in your legs), sudden weight gain, extreme dizziness, chest pain, increased drainage or redness from a wound or incision. Go to the emergency department if you experience a problem with breathing. Weights: If you have a history of swelling or shortness of breath, weigh yourself daily and notify your physician if you have a weight gain of two or more pounds in one day or 5 or more pounds in a week. If you experience any of the warning signs for stroke: Sudden numbness or weakness of the face, arm or leg; especially on one side of the body, sudden confusion, trouble speaking or understanding, sudden trouble seeing in one or both eyes, sudden trouble walking, dizziness, loss of balance or coordination, sudden sever headache with no cause; Call 911 or go to the emergency room. Stroke is a medical emergency. Some risk factors for stroke: Age, cigarette smoking, diabetes, excessive alcohol consumption, family history , high blood pressure, overweight, physical inactivity, prior stroke, heart attack, diagnosis of carotid artery stenosis or other artery disease. If you smoke, STOP: Smoking or tobacco use significantly increases your risk of heart and lung disease. Your chance of disease greatly increases if you continue to smoke. For more information, call the [place] tobacco quit line for smoking cessation 3 QUIT-NOW ( ) Referrals: Tiny Santo DO [Primary Care Provider] - 01/11/17 3:30 pm (Admitted on 12/28 for hepatic encephalopathy, pneumonia, chronic anemia. Started on lactulose, abx and transfused 2 units of Red blood Cells. Tenovivir for elevated Hep B viral load ordered to be picked up at pharmacy. ) Prescriptions: Lactulose 20 gm PO Q2HR #30 udc Rifaximin [Xifaxan] 550 mg PO BID 30 Days Spironolactone [Aldactone] 100 mg PO BID #30 tablet Zinc Sulfate 220 mg PO DAILY #30 capsule <Clinton Ariza - Last Filed: 01/04/17 17:56> Date of Encounter: 01/04/17 Time of Encounter: 14:00 - Time Spent With Patient Total time spent is greater than 50% in coordination of care (as documented) at patient's floor/unit and/or counseling patient: - Constitutional Vitals: Temp Pulse Resp BP Pulse Ox 98.1 F 56 18 97/59 100 01/04/17 16:42 01/04/17 16:42 01/04/17 16:42 01/04/17 16:42 01/04/17 16:42 Results - Labs CBC & Chem 7: 01/04/17 08:08 01/04/17 08:08 Labs: Last Result Calcium 8.6 mg/dL (8.6-10.8) 01/04/17 08:08 Iron 29 mcg/dL (65-175) L 12/30/16 04:30 % Saturation 18 % (20-55) L 12/30/16 04:30 Transferrin 112 mg/dL (174-364) L 12/30/16 04:30 Troponin I 0.01 ng/mL (0-0.03) 12/28/16 11:14 Vitamin B12 1258 pg/mL (213-816) H 12/30/16 04:30 Folate 14.1 ng/mL (7.0-31.4) 12/30/16 04:30 Entire Visit Hgb 9.5 g/dL (12.9-16.9) L 01/04/17 08:08 Hct 29.2 % (37.5-50.1) L 01/04/17 08:08 PT 21.9 Seconds (9.4-12.1) H 12/30/16 10:18 Total Bilirubin 1.4 mg/dL (0.2-1.2) H 12/30/16 04:30 AST 53 Units/L (5-34) H 12/30/16 04:30 ALT 19 Units/L (0-55) 12/30/16 04:30 Ammonia 79 mcmol/L (18-72) H 01/04/17 14:50 Folate 14.1 ng/mL (7.0-31.4) 12/30/16 04:30 - ABG ABG results: PT/INR, D-dimer PT 21.9 Seconds (9.4-12.1) H 12/30/16 10:18 - Impressions Impressions Paracentesis Ultrasound 01/04/17 00:00 IMPRESSION: Successful ultrasound guided paracentesis. D/ / Sendy Polk MD / Sendy Polk MD Interpreting Provider: Sendy Polk MD - Attending Attestation I examined this patient and my medical decision-making was reviewed with the LUMBER CARRIER OPERATOR/PA/Advanced Practice Nurse/Resident Physician. I agree with the documented findings, disposition and treatment plan as described except to the extent set forth below. history of hepatitis B and has been taking Vired for a while but for the last 6 months or so has not been taking it. Per patient wifr when patient was started on the vired there was no change in his clinical status such as any improvement liver marcos. He will be started on it as an outpatient
[2017-01-04] MEDS: *HR* OxyCODONE Immed Rel 15 MG TABLET PO PRN ×3 (14:15→22:50)
--- NOTE | 2017-01-04 14:31 | Event Note ---
<Clive Moses - Last Filed: 01/04/17 14:24> Date of Encounter: 01/04/17 Time of Encounter: 14:25 I was alerted by Nursing staff that patients with had some concerns. Patients is concerned becuase he is somewhat somnolent and she is afraid he is deconditioned and will have a " big fall" at home. Patient is somewhat somnolent. He is alert and orientated to person place and date but tells me that we are in summer. He dose fall asleep twice during a five minute interview with him but he is easily arousable. He has been refusing lactulose and has only had one bowel movement in the last 24 hours. His latest vital signs are within normal limits. His exam is remarkable for stigmata of liver disease with stevens erythema, telangectasia, and mild abdominal distension ( had paracentsis this AM). He also has some mild pitting pedal edema 2+. A/P developing hepatic encephalopathy in a gentleman with Alpha one antitrypsin deficiency and Hepatitis B. He is schedule to be evaluated for a liver transplant on January 11. I have instructed Nursing staff to give Lactulose as directed. We will titrate to 3-4 Bowel movements per day. I will also order Pt/OT as he may be deconditioned and need physical therapy. Patient was going to be discharged this AM but given his worsening confusion and concerns about deconditioning and falling at home we will keep him her and adjust his lactulose and have PT evaluate him. <Jamal Orr - Last Filed: 01/04/17 18:14> Date of Encounter: 01/04/17 I examined this patient and my medical decision-making was reviewed with the BROKER ASSISTANT/PA/Advanced Practice Nurse/Resident Physician. I agree with the documented findings, disposition and treatment plan as described except to the extent set forth below. transfer to [facility] tomorrow
[2017-01-05] MEDS: Lactulose Oral Soln 20 GM/30 ML UDC PO SCH ×5 (00:54→08:39)
[2017-01-05] MEDS: *HR* OxyCODONE Immed Rel 15 MG TABLET PO PRN ×2 (03:49→08:39)
[2017-01-05] MEDS: Ipratropium/Albuterol Neb 3 ML IH SCH ×3 (04:24→11:32)
[2017-01-05] MEDS: Budesonide/Formoterol 160/4.5 MDI IH SCH (07:44)
[2017-01-05] MEDS: levoFLOXacin 500 MG TABLET PO SCH (08:38)
[2017-01-05] MEDS: Zinc Sulfate 220 MG CAPSULE PO SCH (08:38)
[2017-01-05] MEDS: Magnesium Oxide 400 MG TABLET PO SCH (08:39)
[2017-01-05] MEDS: Furosemide 40 MG TABLET PO SCH (08:39)
[2017-01-05] MEDS: Pregabalin 75 MG CAPSULE PO SCH (08:39)
[2017-01-05 11:32] LABS: INR 1.9; Prothrombin Time 20.4 Seconds (9.4-12.1)
[2017-01-05 12:03] VITALS: BP 97/60
== END 2017-01-05 14:40 | disposition other institution (70) | DRG 441 ==
LOC: EMEROO 10:49 → 3BNU 10:49 → OBSVTOIN 13:00 → 2NENU 13:51
PROVIDERS: ADMIT Internal Medicine; ATTEND Nurse Practitioner Family

== ENCOUNTER 2017-01-29 20:30 | Inpatient (IN) ==
[2017-01-29] MEDS ORDERED: Ipratropium/Albuterol Neb 3 ML IH ONE (20:51)
[2017-01-29] MEDS ORDERED: methylPREDNISolone 125 MG/2 ML VIAL IVP ONE (20:51)
--- NOTE | 2017-01-29 20:53 | Emergency Department Note ---
Disposition Clinical Impression: Severe sepsis, HCAP (healthcare-associated pneumonia), [id number] deficiency, Hepatic encephalopathy Disposition: Admitted As Inpatient Condition: Serious Time of Disposition: 01:35 SOB HPI - General Chief Complaint: ED Shortness of Breath/Dyspnea Stated Complaint: VIDA Time Seen by Provider: 01/29/17 20:33 Source: patient, EMS Limitations: no limitations Nursing Notes Reviewed: Yes Vital Signs Reviewed: Yes - History of Present Illness 56-year-old male with shortness breath and altered mental status, history of alpha-1 antitrypsin deficiency, presents with friends of breath, limited historian secondary to mental status. Patient has not been able to qualify for lung liver transplant. Multiple admissions to the hospital including [facility] and admitted. Patient reports intermittent fever and chills, weakness shortness of breath, cough and wheeze. Denies chest pain abdominal pain. Nausea vomiting diarrhea or constipation. Pt Subjective Complaint: shortness of breath Onset (ago): day(s) Context: recent illness (Os last 2 weeks ago) Severity: moderate Consistency/Duration: constant Improves with: oxygen Worsens with: nothing Treatment prior to arrival: oxygen Cough present: Yes Cough Frequency: Continuous Sputum production: Yes Sputum Amount: Scant Sputum Color: Clear - Related Data Home oxygen amount: 2 liters Home Medications Medication Instructions Recorded Confirmed Amitriptyline [Elavil] 50 mg PO HS 10/06/15 12/28/16 Oxygen 2 - 4 l NS CONT 08/18/16 12/28/16 Wnzpc-2-Yhaffzjyph Inhibitor 10 mg IV QWEEK 09/18/16 12/28/16 [Glassia] Ranitidine HCl [Acid Job Checker] 150 mg PO BID 10/17/16 12/28/16 Pantoprazole Sodium [Protonix] 40 mg PO BID 11/01/16 12/28/16 Ondansetron HCl [Zofran] 4 mg PO AD PRN 12/28/16 12/28/16 Previous Rx's Medication Instructions Recorded Albuterol Sulfate [Proair 2 puff IH Q4H PRN #1 [email or web address] 10/11/16 Respiclick] Alprazolam [Xanax 1 MG Tablet] 0.5 mg PO BID PRN #20 10/11/16 Budesonide/Formoterol 160/4.5 2 puff IH BID #1 10/11/16 [Symbicort 160/4.5] Ipratropium/Albuterol Neb [Duoneb] 3 ml IH Q4HR PRN 30 Days 10/11/16 Magnesium Oxide [Mag-Ox] 800 mg PO BID #120 tablet 10/11/16 Nadolol [Corgard] 20 mg PO HS #30 tablet 10/11/16 Oxycodone HCl 15 mg PO Q4H PRN #15 tablet 10/11/16 Pregabalin [Lyrica] 75 mg PO BID #30 capsule 10/11/16 Prochlorperazine Maleate 10 mg PO Q6HR PRN #20 10/11/16 [Compazine] Rifaximin [Xifaxan] 550 mg PO BID #60 tablet 10/11/16 Sucralfate [Carafate] 1 gm PO QID 30 Days 10/11/16 Spironolactone [Aldactone] 100 mg PO BID #60 tablet 10/21/16 Lactulose 30 gm PO TID 30 Days 11/08/16 Furosemide [Lasix] 40 mg PO DAILY #30 tablet 11/20/16 Lactulose 20 gm PO Q2HR #30 udc 01/04/17 Rifaximin [Xifaxan] 550 mg PO BID 30 Days 01/04/17 Spironolactone [Aldactone] 100 mg PO BID #30 tablet 01/04/17 Zinc Sulfate 220 mg PO DAILY #30 capsule 01/04/17 Allergies Allergy/AdvReac Type Severity Reaction Status Date / Time No Known Allergies Allergy Verified 12/16/16 22:42 Limitations: ROS unobtainable due to patients medical condition (Review systems Limited secondary to historian his mental state) Constitutional: Reports: fever, chills, weakness ENT ED: Reports: as per HPI Cardiovascular: Reports: as per HPI Respiratory: Reports: cough, dyspnea Gastrointestinal: Denies: abdominal pain, nausea Genitourinary: Denies: urgency, dysuria Musculoskeletal: Reports: as per HPI Past Medical History - Past Medical History Medical history: Reports: arthritis, cirrhosis, COPD, coronary artery disease, DVT, diabetes, GERD, GI bleed, hepatitis, hyperlipidemia, hypertension, liver disease, other Surgical history: Reports: other Psychiatric history: Reports: anxiety, depression - Social History Smoking Status: Former smoker Smokeless Tobacco Status: No Alcohol use: Reports: none Drug use: Reports: none Physical Exam Constitutional: She appears alert and oriented times self and place, not to time, mild to moderate respiratory distress HEENT: NCAT, sclera anicteric, PERRLA bilaterally, normal external ears bilaterally, nasal septum nondeviated, average dentition, MMM Neck: normal inspection, neck is supple, trachea midline Resp: Chest, diminished breath sounds at the bases bilaterally, decreased inspiratory and expiratory phase CV: RRR, no m/g/r GI: normal inspection, Soft, NTND, BS present Back: normal inspection, no tenderness to palpation Neuro: A&O3, no gross motor or sensory deficits bilaterally Skin: No rashes, skin warm, dry, intact - General Limitations: no limitations General appearance: alert, in no apparent distress Course Course Narrative: 56-year-old cough and shortness of breath, history ofalpha 1 antitrypsin suspect pneumonia with chest pain workup with blood cultures lactate, reassess. - Reevaluation(s) Reevaluation #1: Patient had a lactate of 3.5, possible airspace disease versus pneumonia appears stable on his chest x-ray with no leukocytosis however patient is hypoxic, elevated lactate, had mild hypotension improved with 500 L milliliter fluid bolus, we will give an extra liter fluid, CT of chest rule out other causes of hypoxia including PE, repeat lactate in for within 4 hours Time: 01:32 Reevaluation #2: Repeat lactate came back at 4.0, patient does not meet Sirs not tachycardic tachypneic or febrile, was markedly hypotensive blood pressure dropping to 75 systolic, now currently 110 systolic greater than 65 after 2-1/2 L bolus, patient did receive a full 30 mL per kilogram bolus at 2700 mL, broad-spectrum antibiotic for age Coverage and severe sepsis. Patient's awake and alert, however very somnolent and I did discuss with the hospitalist and they need care for sepsis consideration and HCAP in serious condition at time of ED admission Time: 01:34 Vital Signs Temperature 97.8 F 01/29/17 20:34 Pulse Rate 80 01/29/17 20:34 Respiratory Rate 16 01/29/17 20:34 Blood Pressure 103/68 01/29/17 20:34 O2 Sat by Pulse Oximetry 93 L 01/29/17 20:34 Temperature 97.8 F 01/29/17 20:34 Pulse Rate 71 01/30/17 01:19 Respiratory Rate 18 01/30/17 01:31 Blood Pressure 113/79 01/30/17 01:31 O2 Sat by Pulse Oximetry 96 01/30/17 01:19 Oxygen Delivery Oxygen Delivery Nasal Cannula Shortness of Breath/Dyspnea - MDM Narrative Medical decision making narrative: This 56-year-old male with age, alpha-1 antitrypsin deficiency, admitted with signs of severe sepsis, started on broad-spectrum antibiotics, given a 30 mL per kilogram bolus in the emergency department, repeat lactate checked and sepsis parameters followed admitted to the hospitalist Dr. Beltran in serious condition - Differential Diagnosis Likely: acute exacerbation of chronic obstructive airways disease, congestive heart failure, pneumonia, pulmonary embolism - Lab Data Result diagrams: 01/29/17 21:41 01/29/17 21:41 Lab Results 01/29/17 01/29/17 01/29/17 Range/Units 21:41 21:41 21:41 WBC 10.9 (4.3-11.1) K/mcL RBC 3.00 L (4.19-5.50) M/mcL Hgb 9.2 L (12.9-16.9) g/dL Hct 28.1 L (37.5-50.1) % MCV 93.7 (83.0-100.0) fL MCH 30.7 (28.0-33.3) pg MCHC 32.7 (31.6-35.5) g/dL RDW 16.3 H (11.5-14.5) % Plt Count 172 (140-400) K/mcL MPV 9.9 (9.4-12.4) fL Immature Gran % 0.5 (0-4) % Seg Neutrophils % 69.5 % Lymphocytes % 13.0 % Monocytes % 13.1 % Eosinophils % 3.5 % Basophils % 0.4 % Neutrophils # 7.6 (1.6-8.9) K/mcL Lymphocytes # 1.4 (0.6-4.6) K/mcL Monocytes # 1.4 H (0.0-1.3) K/mcL Eosinophils # 0.4 (0.0-0.6) K/mcL Basophils # 0.0 (0.0-0.2) K/mcL Immature Plt Fraction 2.1 (1.1-6.1) % Sodium 136 (136-145) mEq/L Potassium 4.8 H (3.5-4.5) mEq/L Chloride 104 (98-109) mEq/L Carbon Dioxide 22 (19-29) mEq/L BUN 25 (8-26) mg/dL Creatinine 1.02 (0.72-1.25) mg/dL Est GFR ( Amer) > 60 (> 60) Est GFR (Non-Af Amer) > 60 (> 60) BUN/Creatinine Ratio 25 (6-26) Glucose 111 H (70-99) mg/dL Calculated Osmolality 287 (280-300) Lactic Acid 3.5 H (0.5-2.2) mmol/L Calcium 9.0 (8.6-10.8) mg/dL Total Bilirubin 1.6 H (0.2-1.2) mg/dL Direct Bilirubin 0.8 H (0.0-0.5) mg/dL Indirect Bilirubin 0.8 (0.0-1.2) mg/dL AST 57 H (5-34) Units/L ALT 22 (0-55) Units/L Alkaline Phosphatase 119 (38-126) Units/L Ammonia (18-72) mcmol/L Troponin I (0-0.03) ng/mL B-Natriuretic Peptide (0-100) pg/mL Serum Total Protein 8.5 H (6.0-8.3) g/dL Albumin 2.1 L (3.5-5.0) g/dL Globulin 6.4 H (2.4-3.5) g/dL Albumin/Globulin Ratio 0.3 L (1.1-2.2) 01/29/17 01/29/17 01/29/17 Range/Units 21:41 21:41 22:20 WBC (4.3-11.1) K/mcL RBC (4.19-5.50) M/mcL Hgb (12.9-16.9) g/dL Hct (37.5-50.1) % MCV (83.0-100.0) fL MCH (28.0-33.3) pg MCHC (31.6-35.5) g/dL RDW (11.5-14.5) % Plt Count (140-400) K/mcL MPV (9.4-12.4) fL Immature Gran % (0-4) % Seg Neutrophils % % Lymphocytes % % Monocytes % % Eosinophils % % Basophils % % Neutrophils # (1.6-8.9) K/mcL Lymphocytes # (0.6-4.6) K/mcL Monocytes # (0.0-1.3) K/mcL Eosinophils # (0.0-0.6) K/mcL Basophils # (0.0-0.2) K/mcL Immature Plt Fraction (1.1-6.1) % Sodium (136-145) mEq/L Potassium (3.5-4.5) mEq/L Chloride (98-109) mEq/L Carbon Dioxide (19-29) mEq/L BUN (8-26) mg/dL Creatinine (0.72-1.25) mg/dL Est GFR ( Amer) (> 60) Est GFR (Non-Af Amer) (> 60) BUN/Creatinine Ratio (6-26) Glucose (70-99) mg/dL Calculated Osmolality (280-300) Lactic Acid (0.5-2.2) mmol/L Calcium (8.6-10.8) mg/dL Total Bilirubin (0.2-1.2) mg/dL Direct Bilirubin (0.0-0.5) mg/dL Indirect Bilirubin (0.0-1.2) mg/dL AST (5-34) Units/L ALT (0-55) Units/L Alkaline Phosphatase (38-126) Units/L Ammonia 85 H (18-72) mcmol/L Troponin I 0.00 (0-0.03) ng/mL B-Natriuretic Peptide 51 (0-100) pg/mL Serum Total Protein (6.0-8.3) g/dL Albumin (3.5-5.0) g/dL Globulin (2.4-3.5) g/dL Albumin/Globulin Ratio (1.1-2.2) 01/30/17 Range/Units 00:47 WBC (4.3-11.1) K/mcL RBC (4.19-5.50) M/mcL Hgb (12.9-16.9) g/dL Hct (37.5-50.1) % MCV (83.0-100.0) fL MCH (28.0-33.3) pg MCHC (31.6-35.5) g/dL RDW (11.5-14.5) % Plt Count (140-400) K/mcL MPV (9.4-12.4) fL Immature Gran % (0-4) % Seg Neutrophils % % Lymphocytes % % Monocytes % % Eosinophils % % Basophils % % Neutrophils # (1.6-8.9) K/mcL Lymphocytes # (0.6-4.6) K/mcL Monocytes # (0.0-1.3) K/mcL Eosinophils # (0.0-0.6) K/mcL Basophils # (0.0-0.2) K/mcL Immature Plt Fraction (1.1-6.1) % Sodium (136-145) mEq/L Potassium (3.5-4.5) mEq/L Chloride (98-109) mEq/L Carbon Dioxide (19-29) mEq/L BUN (8-26) mg/dL Creatinine (0.72-1.25) mg/dL Est GFR ( Amer) (> 60) Est GFR (Non-Af Amer) (> 60) BUN/Creatinine Ratio (6-26) Glucose (70-99) mg/dL Calculated Osmolality (280-300) Lactic Acid 4.0 H* (0.5-2.2) mmol/L Calcium (8.6-10.8) mg/dL Total Bilirubin (0.2-1.2) mg/dL Direct Bilirubin (0.0-0.5) mg/dL Indirect Bilirubin (0.0-1.2) mg/dL AST (5-34) Units/L ALT (0-55) Units/L Alkaline Phosphatase (38-126) Units/L Ammonia (18-72) mcmol/L Troponin I (0-0.03) ng/mL B-Natriuretic Peptide (0-100) pg/mL Serum Total Protein (6.0-8.3) g/dL Albumin (3.5-5.0) g/dL Globulin (2.4-3.5) g/dL Albumin/Globulin Ratio (1.1-2.2) - Radiology Data Radiology results reviewed: Yes I reviewed the patient's radiology results. Chest X-Ray 01/29/17 20:51 IMPRESSION: 1. Re- demonstration of airspace disease within the left lung base. Pneumonia is not excluded. 2. Chronic changes of COPD. D/ / Teofilo Eaton MD / Teofilo Eaton MD Interpreting Provider: Teofilo Eaton MD Chest CTA 01/29/17 22:56 IMPRESSION: 1. No evidence of pulmonary embolism. 2. Patchy airspace opacities at the lung bases, left greater than right, concerning for pneumonia. Appearance is similar to prior exam from 03/28/2016, and superimposed chronic bronchitis and mucous plugging is a possibility. 3. Moderate to severe emphysematous change. 4. Cirrhosis with partially visualized large volume ascites. Mild splenomegaly. 5. Mild mediastinal and bilateral hilar lymphadenopathy, which may be reactive. D/ / Raleigh London MD / Raleigh London MD Interpreting Provider: Raleigh London MD - EKG Data EKG attestation: Yes I reviewed and interpreted this EKG. EKG shows normal: Reports: sinus rhythm (Extremities for minute MT 198 QRS 126 QTc 429 W. segment elevations or depressions, Q waves in leads 3 and aVF were seen on previous EKG in November 2016) Rate: Reports: normal Rhythm: Reports: NSR Critical Care Time Critical Care Time: Yes Total Critical Care Time: 45 Attestation: Critical care performed: Time is exclusive of separately billable procedures. Time includes: direct patient care, patient reassessment, coordination of patient care, interpretation of data (laboratory data, radiology data, and respiratory data), review of patient's medical records, medical consultation and documentation of patient care. Procedures included in critical care time: Procedures excluded from critical care time: Attestation Statement - Attestation Attestation: I, Elvis Bosch MD, personally performed a history and physical exam of the patient and discussed their management with the resident. I reviewed the resident's note and agree with the documented findings, medical decision making , and plan of care. 56-year-old male with history of cirrhosis who is currently on lactulose presents to the emergency department with complaining of decreasing mental status since yesterday. Also a moist cough and some increased difficulty breathing. She reports that normally when he gets like this his ammonia level is elevated. Patient unable to provide any history or review of systems. On examination patient is a well-developed male in no acute distress. He responds to physical stimuli. He is very pale. There is no cyanosis or diaphoresis. Occasional moist cough noted. Breath sounds are decreased bilaterally with some mild bibasilar rales. Heart regular rate and rhythm. Abdomen is soft with present bowel sounds. No distention or tympany. Labs reviewed. Ammonia 85. Lactic acid 3.5. CTA showed no pulmonary embolism but bibasilar airspace disease consistent with pneumonia. IV antibiotics initiated. Patient had some intermittent hypotension with systolic pressures down into the 70s however was not tachycardic. Blood pressures responded well to fluid bolus. The hospitalist, Dr. Shell, was consulted and accepted admission of the patient.
[2017-01-29 21:50] LABS: Basophils % 0.4 %; Eosinophils # 0.4 K/mcL (0.0-0.6); Eosinophils % 3.5 %; Hematocrit 28.1 % (37.5-50.1); Hemoglobin 9.2 g/dL (12.9-16.9); Immature Granulocytes % 0.5 % (0-4); Immature Platelets 2.1 % (1.1-6.1); Lymphocytes # 1.4 K/mcL (0.6-4.6); Mean Corpuscular HGB Conc 32.7 g/dL (31.6-35.5); Mean Corpuscular Hemoglobin 30.7 pg (28.0-33.3); Mean Corpuscular Volume 93.7 fL (83.0-100.0); Mean Platelet Volume 9.9 fL (9.4-12.4); Monocytes # 1.4 K/mcL (0.0-1.3); Monocytes % 13.1 %; Neutrophils # 7.6 K/mcL (1.6-8.9); Platelet Count 172 K/mcL (140-400); Red Cell Distribution Width 16.3 % (11.5-14.5); Segmented Neutrophils % 69.5 %
[2017-01-29 22:04] LABS: Alanine Aminotransferase 22 Units/L (0-55); Albumin 2.1 g/dL (3.5-5.0); Albumin/Globulin Ratio 0.3 (1.1-2.2); Alkaline Phosphatase 119 Units/L (38-126); Aspartate Amino Transferase 57 Units/L (5-34); BUN/Creatinine Ratio 25 (6-26); Bilirubin,Direct 0.8 mg/dL (0.0-0.5); Bilirubin,Indirect 0.8 mg/dL (0.0-1.2); Bilirubin,Total 1.6 mg/dL (0.2-1.2); Blood Urea Nitrogen 25 mg/dL (8-26); Carbon Dioxide 22 mEq/L (19-29); Chloride 104 mEq/L (98-109); Globulin 6.4 g/dL (2.4-3.5); Glucose 111 mg/dL (70-99); Osmolality,Calculated 287 (280-300); Potassium 4.8 mEq/L (3.5-4.5); Sodium 136 mEq/L (136-145); Total Protein 8.5 g/dL (6.0-8.3); eGFR For African Americans > 60 (> 60); eGFR For Non-African Americans > 60 (> 60)
[2017-01-29] MEDS ORDERED: 0.9 % Sodium Chloride 500 ML IVC ONE (22:05)
[2017-01-29] MEDS ORDERED: 0.9 % Sodium Chloride 1,000 ML IV ONE (22:55)
[2017-01-29] MEDS ORDERED: Levofloxacin 750 MG/150 ML 750 MG/150 ML BAG IVPB ONE (22:56)
[2017-01-30] MEDS ORDERED: Vancomycin 1,000 MG in D5% in Water 250 ML IV ONE (00:05)
[2017-01-30] MEDS ORDERED: Piperacillin/Tazobactam 4.5 GM in D5% in Water (Mini-Bag+) 100 ML IVPB ONE (00:05)
[2017-01-30] MEDS ORDERED: 0.9 % Sodium Chloride 1,000 ML ONE (00:23)
[2017-01-30] MEDS ORDERED: 0.9 % Sodium Chloride 1,200 ML IV ONE (00:37)
[2017-01-30] MEDS ORDERED: ALPHA 1 PROTEINASE INHIBITOR PO SCH (03:30)
[2017-01-30] MEDS ORDERED: Naloxone 0.4 MG/ML INJ IVP PRN (03:32)
[2017-01-30] MEDS ORDERED: Albuterol 2.5 MG/3 ML NEBULIZER IH PRN (03:32)
[2017-01-30] MEDS ORDERED: Nicotine 21 MG PATCH.TD24 TD PRN (03:32)
[2017-01-30] MEDS ORDERED: *HR* HYDROmorphone (PF) 1 MG/ML SYRINGE IVP PRN (03:32)
[2017-01-30] MEDS ORDERED: Ondansetron 4 MG/2 ML VIAL IVP PRN (03:32)
[2017-01-30] MEDS ORDERED: Benzonatate 100 MG CAPSULE PO PRN (03:47)
[2017-01-30] MEDS ORDERED: Vancomycin 1,250 MG in D5% in Water 250 ML IVPB SCH (04:00)
--- NOTE | 2017-01-30 04:01 | Internal Med History&Physical ---
Date of Encounter: 01/30/17 Time of Encounter: 03:00 Assessment and Plan (1) Delirium due to conditions classified elsewhere Status: Acute . (2) HCAP (healthcare-associated pneumonia) Status: Acute . (3) Hepatic encephalopathy Status: Acute . (4) Severe sepsis Status: Acute . (5) Lfznj-[id number]-[id number] deficiency Status: Chronic . (6) Acute exacerbation of chronic obstructive pulmonary disease Status: Acute . (7) Acute generalized abdominal pain Status: Acute . (8) Acute on chronic respiratory failure with hypoxia Status: Chronic . (9) Anasarca Status: Chronic . (10) Cirrhosis of liver with ascites Status: Chronic . Qualifiers: Hepatic cirrhosis type: unspecified hepatic cirrhosis Qualified Code(s): K74.60 - Unspecified cirrhosis of liver (11) Diastolic heart failure Status: Chronic . Qualifiers: Heart failure chronicity: acute on chronic Qualified Code(s): I50.33 - Acute on chronic diastolic (congestive) heart failure (12) Hypoalbuminemia Status: Chronic . (13) Increased ammonia level Status: Acute . (14) Lactic acidosis Status: Acute . (15) Toxic metabolic encephalopathy Status: Acute . (16) Transaminitis Status: Acute . (17) CAD (coronary artery disease) Status: Chronic . Qualifiers: Coronary Disease-Associated Artery/Lesion type: [place] artery [place] vs. transplanted heart: [place] heart Associated angina: without angina Qualified Code(s): I25.10 - Atherosclerotic heart disease of [place] coronary artery without angina pectoris (18) Chronic anemia Status: Chronic . (19) Chronic hepatitis B virus infection Status: Chronic . (20) Coagulopathy Status: Chronic . (21) Debility Status: Chronic . (22) Diabetes mellitus Status: Chronic . Qualifiers: Diabetes mellitus type: type 2 Diabetes mellitus complication status: with unspecified complications Diabetes mellitus termite control representative insulin use: without termite control representative use Qualified Code(s): E11.8 - Type 2 diabetes mellitus with unspecified complications (23) Dyslipidemia Status: Chronic . (24) Protein calorie malnutrition Status: Chronic . Internal Medicine - H&P: HPI Chief complaint: Confusion. Difficulty breathing. Admitted From: Emergency Dept Plans for Post Hospital Care: Home History of present illness: Mr. Zelaya is a 56 year old male with alpha-1 antitrypsin deficiency is admitted to [facility] where he presented via EMS services for almost complaints of chest difficulty breathing. He presents acutely encephalopathic secondary to alpha-1 antitrypsin deficiency cirrhotic liver disease and associated hyperammonemia. Sedation suggests presence of healthcare associated pneumonia and severe sepsis. The patient was visited and interviewed and examined. Cumulative laboratory and radiographic data base will be considered and discussed. Pertinent ancillary medical records including ECW and PCI documentation when available was reviewed and considered. Given the patient's presenting concerns, past medical history, clinical findings and symptoms, he is admitted at this time will undergo further evaluation and disposition. Orders were written as per Computerized physician border measurer and cutter system.......................................................................... .................... Consultative opinion and will be sought as clinical circumstances justify. Pain management needs will be addressed. Laboratory radiographic data base will be updated as appropriate. Studies include: Cultures of blood and urine and sputum, ammonia, coag's, cardiac injury panel, BNP, UA, UDS, metabolic and hematologic panel, magnesium phosphorus, ionized calcium, thyroid panel lipid profile, A1c C-peptide, CRP sedimentation rate, respiratory infection profile, respiratory virus panel, blood gas, lactic acid, serologies, etc. Precautions: Aspiration, fall, delirium protocol/surveillance initiated. Telemetry with continuous hemodynamic monitoring and pulse oximetry initiated. Empiric antibiotic coverage: Intravenous Vancomycin, Zosyn and azithromycin pending culture data. Special studies: CT/CTA chest, chest x-ray, telemetry, EKG. Interventional radiology consultation for ultrasound guided paracentesis ( therapeutic and diagnostic) r/o SBP. Pulmonary toilet: Incentive spirometry, aerosol bronchodilator, mucolytic, antitussive, supplemental oxygen. Corticosteroid therapy. CPAP/BiPAP supplemental oxygen delivery employed. Aerosol Mucomyst therapy may be employed. Fluid and electrolyte repletion efforts will proceed. Careful attention to fluid balance and renal recovery will be emphasized. Avoidance of nephrotoxic exposure and adverse drug drug interaction in the setting of impaired renal function will be monitored closely. Acute coronary syndrome protocol/surveillance initiated. Lactulose therapy (PO and RC) 2-3 bowel movements per day. Xifaxan therapy. Strict input and output and daily weights. 8036-9245 mL fluid restriction per 24 hours. Gentle diuresis as permitted by fluid balance and hemodynamic stability. DVT and PUD prophylaxis initiated: PPI therapy, intermittent pneumatic cuffs. Subcutaneous heparin. Early ambulation will be encouraged. Immunization updates recommended. Influenza and pneumococcal vaccinations as part of ongoing preventative healthcare recommendations strongly recommended. Smoke cessation counseling briefly addressed. Patient is a former smoker. Advanced care directive discussion briefly addressed. Patient does not declare any healthcare restrictions at this time. Cardiovascular risk appraisal and cardiovascular risk reduction efforts will be emphasized. Physical /occupational therapy may be counseled to evaluate patient's function capacity and progressive mobility of her circumstances justify. Sliding scale insulin coverage, ADA dietary restraint and schedule an as-needed basis fingerstick glucose assessments were initiated. Nutrition/diabetes education counseling may be considered as circumstances justify. Outpatient medication schedules will be reviewed confirmed and facilitated as appropriate. Reconciliation of home treatments including adjustment substitutions and reintroduction into the treatment regimen as necessary maintenance therapies for chronic pre-existing medical conditions. Plan of care has been reviewed and discussed in detail with the patient's family. Questions addressed. Hospital course dictated by clinical findings, treatment response and potential consultative interventions. Patient is at high risk for further acute clinical decline due to his frailty, chief complaints and comorbid conditions. Condition is serious. Prognosis is guarded. CODE STATUS is full. Past Med Surg Social Fam HX - Past Medical History Source: old records reviewed Medical history: arthritis, cirrhosis, COPD, coronary artery disease, DVT, diabetes, GERD, GI bleed, hepatitis, hyperlipidemia, hypertension, liver disease , osteoporosis, renal disease, other Psychiatric history: anxiety, depression - Past Surgical History Surgical History: other - Social History Smoking Status: Former smoker Smokeless Tobacco Status: No Alcohol use: none Drug use: none Occupational status: unemployed Current living situation: With Family Activity Level: Independent ambulation, Mostly sedentary Recent Out of Country Travel Within the Last 8 Weeks: No Exposure or Possible Exposure to Illness During Travel: No - Family History Mother Living Status: Hx Family Cardiac Disorders: Yes Hx Family Respiratory Disorders: Yes Father Living Status: Hx Family Cardiac Disorders: No Hx Family Respiratory Disorders: No Hx Family Cancer: No Hx Family GI Disorders: No Hx Family Endocrine Disorder: No Hx Family Neuromuscular Disorders: No Hx Family Neurologic Disorders: No Hx Family HEENT Disorders: No Hx Family Autoimmune Disorders: No Internal Medicine - H&P: Meds Amitriptyline [Elavil] 50 mg PO HS 10/06/15 [History] Oxygen 2 - 4 l NS CONT 08/18/16 [History] Albuterol Sulfate [Proair Respiclick] 2 puff IH Q4H PRN #1 aer.[email or web address] 10/11/16 [ Rx] Budesonide/Formoterol 160/4.5 [Symbicort 160/4.5] 2 puff IH BID #1 10/11/16 [Rx ] Ipratropium/Albuterol Neb [Duoneb] 3 ml IH Q4HR PRN 30 Days 10/11/16 [Rx] Prochlorperazine Maleate [Compazine] 10 mg PO Q6HR PRN #20 10/11/16 [Rx] Rifaximin [Xifaxan] 550 mg PO BID #60 tablet 10/11/16 [Rx] Sucralfate [Carafate] 1 gm PO QID 30 Days 10/11/16 [Rx] Ranitidine HCl [Acid Fine Grader] 150 mg PO BID 10/17/16 [History] Pantoprazole Sodium [Protonix] 40 mg PO BID 11/01/16 [History] Ondansetron HCl [Zofran] 4 mg PO AD PRN 12/28/16 [History] Furosemide [Lasix] 80 mg PO DAILY 01/30/17 [History] Lactulose 30 ml PO QID 01/30/17 [History] Magnesium Oxide [Mag-Ox] 400 mg PO BID 01/30/17 [History] Metformin HCl [Metformin HCl ER] 1,000 mg PO BID 01/30/17 [History] Nadolol 20 mg PO DAILY 01/30/17 [History] Potassium Chloride [Klor-Con 10] 10 meq PO BID 01/30/17 [History] Spironolactone [Aldactone] 100 mg PO DAILY 01/30/17 [History] Alprazolam [Xanax 1 MG Tablet] 0.5 mg PO BID PRN #14 tablet 02/15/17 [Rx] Hydromorphone HCl [Dilaudid] 1 mg PO Q1H PRN #15 ml 02/15/17 [Rx] LORazepam Oral Conc [Ativan Oral Conc] 1 mg PO Q6HR PRN #15 mls 02/15/17 [Rx] Oxycodone HCl 15 mg PO Q4H PRN #20 tablet 02/15/17 [Rx] Pregabalin [Lyrica] 75 mg PO BID #14 capsule 02/15/17 [Rx] Allergies morphine Adverse Reaction (Verified 02/11/17 22:44) See Comments Family at bedside states "bad reaction." Patient had to receive Narcan per family at bedside. ROS unobtainable: due to mental status All Systems PM: A 10-system review of systems was performed and is negative for pertinent findings except as documented above in the HPI. - Constitutional Constitutional: as per HPI - EENT Eyes: as per HPI Ears: as per HPI Nose, mouth and throat: as per HPI - Cardiovascular Cardiovascular ROS IM: as per HPI - Respiratory Respiratory: as per HPI - Gastrointestinal Gastrointestinal: as per HPI - Genitourinary Genitourinary ROS male: as per HPI - Musculoskeletal Musculoskeletal ROS IM: as per HPI - Integumentary Integumentary IM: as per HPI - Neurological Neurological ROS: as per HPI - Psychiatric Psychiatric: as per HPI - Endocrine Endocrine IM: as per HPI - Hematologic/Lymphatic Hematologic/Lymphatic: as per HPI - Allergic/Immunologic Allergic/Immunologic: as per HPI - Constitutional Vitals: Temp Pulse Resp BP Pulse Ox 97.3 F L 71 12 110/69 93 L 01/30/17 02:52 01/30/17 02:52 01/30/17 02:52 01/30/17 02:52 01/30/17 02:52 General appearance: Present: cachectic, disheveled, A&O X 2, obese. Absent: cooperative, answers questions appropriately - Head Head exam: Present: atraumatic, normocephalic - Eye Eye exam: Present: EOMI, PERRL, conjuntiva pink, sclera anicteric Pupils: Present: normal accommodation, PERRL - ENT ENT exam: Present: mucous membranes moist, normal oropharynx - Neck Neck exam general surgery: Present: supple, trachea midline. Absent: lymphadenopathy - Respiratory Respiratory exam: Present: decreased breath sounds. Absent: accessory muscle use, CTAB, rales, rhonchi, stridor, wheezes - Cardiovascular Cardiovascular exam: Present: distant heart sounds, RRR, +S1, +S2. Absent: diastolic murmur, gallop, rubs, systolic murmur - GI/Abdominal GI/Abdominal exam: Present: normal bowel sounds, soft, no peritoneal signs. Absent: distended, tenderness - Extremities Exam Extremities exam: Present: warm, radial pulses palpable and symetrical. Absent : calf tenderness, cyanotic, pedal edema - Neurological Exam Neurological exam: Present: alert, altered, CN II-XII intact, oriented X3, no focal deficits. Absent: pronater drift, facial droop, speech deficit - Expanded Neurological Exam Neurological exam expanded: Present: ataxia, inattentive, protecting the airway , tremor. Absent: expressive aphasia, receptive aphasia Patient oriented to: Present: person, place. Absent: time Speech: Present: garbled Ataxia: Present: yes Coma Scale Eye Opening: To Voice Coma Scale Motor Response: Obeys Commands Coma Scale Verbal Response: Confused Coma Scale Total: 13 Internal Med - H&P Results - Labs CBC & Chem 7: 02/03/17 04:27 02/03/17 04:27 Labs: Vital Signs Temp Pulse Resp BP Pulse Ox 01/30/17 02:52 97.3 F L 71 12 110/69 93 L 01/30/17 01:31 18 113/79 01/30/17 01:19 71 18 113/79 96 01/29/17 22:57 71 20 85/34 93 L 01/29/17 22:04 71 16 84/48 100 01/29/17 21:21 72 20 93/68 99 01/29/17 21:06 18 96 01/29/17 20:34 97.8 F 80 16 103/68 94 L Intake and Output 01/29/17 01/29/17 01/30/17 15:59 23:59 07:59 Intake Total 500 / 500 1150 / 1150 Balance 500 / 500 1150 / 1150 Intake: IV Fluids 500 / 500 1150 / 1150 0.9 % Sodium Chloride 1, 1000 / 1000 000 ML @ 3750 mls/hr IV BOLUS ONE Rx#:[id number] 0.9 % Sodium Chloride 500 500 / 500 ML @ 1875 mls/hr IVC . Q16M ONE Rx#:[id number] Levaquin 750mg/150 mL 750 150 / 150 mg In 150 ml @ 100 mls/ hr IVPB ONCE ONE Rx#: [id number] Oral 0 / 0 Other: # Voids 0 # Urine Diapers 1 Weight 90.718 kg Blood Glucose* 163 Short CBC 01/29/17 Range/Units 21:41 WBC 10.9 (4.3-11.1) K/mcL Hgb 9.2 L (12.9-16.9) g/dL Hct 28.1 L (37.5-50.1) % Plt Count 172 (140-400) K/mcL Neutrophils # 7.6 (1.6-8.9) K/mcL BMP 01/29/17 Range/Units 21:41 Sodium 136 (136-145) mEq/L Potassium 4.8 H (3.5-4.5) mEq/L Chloride 104 (98-109) mEq/L Carbon Dioxide 22 (19-29) mEq/L BUN 25 (8-26) mg/dL Creatinine 1.02 (0.72-1.25) mg/dL Glucose 111 H (70-99) mg/dL Calcium 9.0 (8.6-10.8) mg/dL Cardiac Enzymes 01/29/17 Range/Units 21:41 Troponin I 0.00 (0-0.03) ng/mL Liver Function 01/29/17 Range/Units 21:41 Total Bilirubin 1.6 H (0.2-1.2) mg/dL Direct Bilirubin 0.8 H (0.0-0.5) mg/dL AST 57 H (5-34) Units/L ALT 22 (0-55) Units/L Alkaline Phosphatase 119 (38-126) Units/L Albumin 2.1 L (3.5-5.0) g/dL - Impressions Abnormal lab results RBC 3.00 M/mcL (4.19-5.50) L 01/29/17 21:41 Hgb 9.2 g/dL (12.9-16.9) L 01/29/17 21:41 Hct 28.1 % (37.5-50.1) L 01/29/17 21:41 RDW 16.3 % (11.5-14.5) H 01/29/17 21:41 Monocytes # 1.4 K/mcL (0.0-1.3) H 01/29/17 21:41 Potassium 4.8 mEq/L (3.5-4.5) H 01/29/17 21:41 Glucose 111 mg/dL (70-99) H 01/29/17 21:41 Lactic Acid 4.0 mmol/L (0.5-2.2) H* 01/30/17 00:47 Total Bilirubin 1.6 mg/dL (0.2-1.2) H 01/29/17 21:41 Direct Bilirubin 0.8 mg/dL (0.0-0.5) H 01/29/17 21:41 AST 57 Units/L (5-34) H 01/29/17 21:41 Ammonia 85 mcmol/L (18-72) H 01/29/17 22:20 Serum Total Protein 8.5 g/dL (6.0-8.3) H 01/29/17 21:41 Albumin 2.1 g/dL (3.5-5.0) L 01/29/17 21:41 Globulin 6.4 g/dL (2.4-3.5) H 01/29/17 21:41 Albumin/Globulin Ratio 0.3 (1.1-2.2) L 01/29/17 21:41 Allergies Allergy/AdvReac Type Severity Reaction Status Date / Time No Known Allergies Allergy Verified 12/16/16 22:42 Laboratory Results WBC 10.9 K/mcL (4.3-11.1) 01/29/17 21:41 RBC 3.00 M/mcL (4.19-5.50) L 01/29/17 21:41 Hgb 9.2 g/dL (12.9-16.9) L 01/29/17 21:41 Hct 28.1 % (37.5-50.1) L 01/29/17 21:41 MCV 93.7 fL (83.0-100.0) 01/29/17 21:41 MCH 30.7 pg (28.0-33.3) 01/29/17 21:41 MCHC 32.7 g/dL (31.6-35.5) 01/29/17 21:41 RDW 16.3 % (11.5-14.5) H 01/29/17 21:41 Plt Count 172 K/mcL (140-400) 01/29/17 21:41 MPV 9.9 fL (9.4-12.4) 01/29/17 21:41 Immature Gran % 0.5 % (0-4) 01/29/17 21:41 Seg Neutrophils % 69.5 % 01/29/17 21:41 Lymphocytes % 13.0 % 01/29/17 21:41 Monocytes % 13.1 % 01/29/17 21:41 Eosinophils % 3.5 % 01/29/17 21:41 Basophils % 0.4 % 01/29/17 21:41 Neutrophils # 7.6 K/mcL (1.6-8.9) 01/29/17 21:41 Lymphocytes # 1.4 K/mcL (0.6-4.6) 01/29/17 21:41 Monocytes # 1.4 K/mcL (0.0-1.3) H 01/29/17 21:41 Eosinophils # 0.4 K/mcL (0.0-0.6) 01/29/17 21:41 Basophils # 0.0 K/mcL (0.0-0.2) 01/29/17 21:41 Immature Plt Fraction 2.1 % (1.1-6.1) 01/29/17 21:41 Sodium 136 mEq/L (136-145) 01/29/17 21:41 Potassium 4.8 mEq/L (3.5-4.5) H 01/29/17 21:41 Chloride 104 mEq/L (98-109) 01/29/17 21:41 Carbon Dioxide 22 mEq/L (19-29) 01/29/17 21:41 BUN 25 mg/dL (8-26) 01/29/17 21:41 Creatinine 1.02 mg/dL (0.72-1.25) 01/29/17 21:41 Est GFR ( Amer) > 60 (> 60) 01/29/17 21:41 Est GFR (Non-Af Amer) > 60 (> 60) 01/29/17 21:41 BUN/Creatinine Ratio 25 (6-26) 01/29/17 21:41 Glucose 111 mg/dL (70-99) H 01/29/17 21:41 Calculated Osmolality 287 (280-300) 01/29/17 21:41 Lactic Acid 4.0 mmol/L (0.5-2.2) H* 01/30/17 00:47 Calcium 9.0 mg/dL (8.6-10.8) 01/29/17 21:41 Total Bilirubin 1.6 mg/dL (0.2-1.2) H 01/29/17 21:41 Direct Bilirubin 0.8 mg/dL (0.0-0.5) H 01/29/17 21:41 Indirect Bilirubin 0.8 mg/dL (0.0-1.2) 01/29/17 21:41 AST 57 Units/L (5-34) H 01/29/17 21:41 ALT 22 Units/L (0-55) 01/29/17 21:41 Alkaline Phosphatase 119 Units/L (38-126) 01/29/17 21:41 Ammonia 85 mcmol/L (18-72) H 01/29/17 22:20 Troponin I 0.00 ng/mL (0-0.03) 01/29/17 21:41 B-Natriuretic Peptide 51 pg/mL (0-100) 01/29/17 21:41 Serum Total Protein 8.5 g/dL (6.0-8.3) H 01/29/17 21:41 Albumin 2.1 g/dL (3.5-5.0) L 01/29/17 21:41 Globulin 6.4 g/dL (2.4-3.5) H 01/29/17 21:41 Albumin/Globulin Ratio 0.3 (1.1-2.2) L 01/29/17 21:41 Impressions Chest X-Ray 01/29/17 20:51 IMPRESSION: 1. Re- demonstration of airspace disease within the left lung base. Pneumonia is not excluded. 2. Chronic changes of COPD. D/ / Teofilo Eaton MD / Teofilo Eaton MD Interpreting Provider: Teofilo Eaton MD Chest CTA 01/29/17 22:56 IMPRESSION: 1. No evidence of pulmonary embolism. 2. Patchy airspace opacities at the lung bases, left greater than right, concerning for pneumonia. Appearance is similar to prior exam from 03/28/2016, and superimposed chronic bronchitis and mucous plugging is a possibility. 3. Moderate to severe emphysematous change. 4. Cirrhosis with partially visualized large volume ascites. Mild splenomegaly. 5. Mild mediastinal and bilateral hilar lymphadenopathy, which may be reactive. D/ / Raleigh London MD / Raleigh London MD Interpreting Provider: Raleigh London MD - Attending Attestation Allergies morphine Adverse Reaction (Verified 02/11/17 22:44) See Comments Family at bedside states "bad reaction." Patient had to receive Narcan per family at bedside. Home Medications Medication Instructions Recorded Confirmed Type Amitriptyline [Elavil] 50 mg PO HS 10/06/15 02/11/17 History Oxygen 2 - 4 l NS CONT 08/18/16 02/11/17 History Ranitidine HCl [Acid Fine Grader] 150 mg PO BID 10/17/16 02/11/17 History Pantoprazole Sodium [Protonix] 40 mg PO BID 11/01/16 02/11/17 History Ondansetron HCl [Zofran] 4 mg PO AD PRN 12/28/16 02/11/17 History Furosemide [Lasix] 80 mg PO DAILY 01/30/17 02/11/17 History Lactulose 30 ml PO QID 01/30/17 02/11/17 History Magnesium Oxide [Mag-Ox] 400 mg PO BID 01/30/17 01/30/17 History Metformin HCl [Metformin HCl ER] 1,000 mg PO BID 01/30/17 02/11/17 History Nadolol 20 mg PO DAILY 01/30/17 02/11/17 History Potassium Chloride [Klor-Con 10] 10 meq PO BID 01/30/17 02/11/17 History Spironolactone [Aldactone] 100 mg PO DAILY 01/30/17 02/11/17 History Medications Discontinued Medications Acetaminophen (Tylenol) 650 mg PO Q6HR PRN PRN Reason: Mild Pain (1-3) Stop: 08/01/17 03:33 Last Admin: 01/30/17 19:36 Dose: 650 mg Re-Assess: [facility] Pain Assessment Document 01/30/17 20:21 SAG (Rec: 01/30/17 20:41 SAG [id number]) Patient's Stated Pain Level Pain Intensity 5 Acetylcysteine (Acetylcysteine 10%) 2 ml IH [id number] AXEL Stop: 08/01/17 07:01 Last Admin: 02/03/17 11:06 Dose: 2 ml Albuterol Sulfate (Proventil Neb) 2.5 mg IH Q2H PRN PRN Reason: Shortness Of Breath/Wheezing Stop: 08/01/17 03:33 Albuterol/Ipratropium (Duoneb) 9 ml IH ONCE ONE Stop: 01/29/17 20:52 Last Admin: 01/29/17 21:05 Dose: 9 ml Albuterol/Ipratropium (Duoneb) 3 ml IH QIDR [facility] Stop: 08/01/17 05:01 Last Admin: 02/03/17 11:07 Dose: 3 ml Alprazolam (Xanax) 0.5 mg PO BID PRN; Protocol PRN Reason: Anxiety Stop: 08/01/17 03:31 Last Admin: 02/03/17 08:13 Dose: 0.5 mg Amitriptyline HCl (Elavil) 50 mg PO [facility] Stop: 08/01/17 21:01 Last Admin: 02/02/17 20:41 Dose: 50 mg Benzonatate (Tessalon) 100 mg PO TID [facility] Stop: 08/01/17 09:01 Benzonatate (Tessalon) 100 mg PO TID PRN PRN Reason: Cough Stop: 08/01/17 03:48 Budesonide/Formoterol Fumarate (Symbicort) 2 puff IH BIDR AXEL PRN Reason: Protocol Stop: 08/04/17 22:01 Last Admin: 02/03/17 11:06 Dose: 2 puff Lactulose 200 gm/ Sodium (Chloride 700 ml) 0 gm RC Q6H AXEL Stop: 01/31/17 06:16 Dextromethorphan Polistirix (Delsym 12-Hr) 60 mg PO [facility] Stop: 08/01/17 21:01 Dextrose/Water (Dextrose 50% (Syg)) 25 ml IVP AD PRN PRN Reason: Hypoglycemia Stop: 08/02/17 12:26 Docusate Sodium (Colace) 100 mg PO BID PRN PRN Reason: Constipation Stop: 08/01/17 03:33 Docusate Sodium (Colace) 100 mg PO TID [facility] Stop: 08/01/17 09:01 Last Admin: 02/03/17 08:16 Dose: 100 mg Famotidine (Pepcid) 20 mg PO BID [facility] Stop: 08/01/17 09:01 Last Admin: 02/03/17 08:12 Dose: 20 mg Furosemide (Lasix) 40 mg PO DAILY [facility] Stop: 08/01/17 09:01 Last Admin: 02/01/17 08:22 Dose: 40 mg Glucagon (Glucagen) 1 mg IM ONCE PRN PRN Reason: Hypoglycemia Stop: 08/02/17 12:26 Glucose (Gluctose) 15 gm PO ONCE PRN PRN Reason: Hypoglycemia Stop: 08/02/17 12:26 Glucose (Gluctose) 30 gm PO ONCE PRN PRN Reason: Hypoglycemia Stop: 08/02/17 12:26 Guaifenesin (Mucinex) 1,200 mg PO BID [facility] Stop: 08/01/17 09:01 Last Admin: 02/03/17 08:16 Dose: 1,200 mg Heparin Sodium (Porcine) (Heparin) 5,000 unit SQ Q8HCO [facility] Stop: 08/01/17 06:01 Last Admin: 01/31/17 06:24 Dose: 5,000 unit Hydromorphone HCl (Dilaudid) 0.5 mg IVP Q4HR PRN PRN Reason: Severe Pain (7-10) Stop: 08/01/17 03:33 Sodium Chloride (0.9 % Sodium Chloride) 500 mls @ 1,875 mls/hr IVC .Q16M ONE Stop: 01/29/17 22:20 Last Infusion: 01/29/17 23:30 Dose: 0 mls/hr Sodium Chloride (0.9 % Sodium Chloride) 1,000 mls @ 3,750 mls/hr IV BOLUS ONE Stop: 01/29/17 23:10 Last Infusion: 01/30/17 01:18 Dose: 0 mls/hr Levofloxacin/Dextrose (Levaquin 750mg/150 Ml) 750 mg in 150 mls @ 100 mls/hr IVPB ONCE ONE PRN Reason: Protocol Stop: 01/30/17 00:25 Last Infusion: 01/30/17 01:18 Dose: 0 mls/hr Piperacillin Sod/Tazobactam (Sod 4.5 gm/ Dextrose) 100 mls @ 100 mls/hr IVPB ONCE ONE PRN Reason: Protocol Stop: 01/30/17 01:04 Last Admin: 01/30/17 08:25 Dose: Not Given Non-Admin Reason: Patient Refused Vancomycin HCl 1,000 mg/ (Dextrose) 250 mls @ 167 mls/hr IV ONCE ONE PRN Reason: Protocol Stop: 01/30/17 01:34 Last Admin: 01/30/17 01:16 Dose: 167 mls/hr Sodium Chloride (0.9 % Sodium Chloride) Confirm Administered Dose 1,000 mls @ as directed .ROUTE .STK-MED ONE Stop: 01/30/17 00:24 Sodium Chloride (0.9 % Sodium Chloride) 1,200 mls @ 3,750 mls/hr IV BOLUS ONE Stop: 01/30/17 00:56 Last Admin: 01/30/17 19:23 Dose: Sodium Chloride (0.9 % Sodium Chloride) 1,000 mls @ 75 mls/hr IVC .[id number] [facility] Stop: 08/01/17 03:46 Last Admin: 01/31/17 07:33 Dose: Levofloxacin/Dextrose (Levaquin 750mg/150 Ml) 750 mg in 150 mls @ 100 mls/hr IVPB DAILY [facility] PRN Reason: Protocol Stop: 08/01/17 09:01 Last Admin: 02/03/17 08:27 Dose: 100 mls/hr Piperacillin Sod/Tazobactam (Sod 3.375 gm/ Dextrose) 100 mls @ 25 mls/hr IVPB Q8HR [facility] PRN Reason: Protocol Stop: 08/01/17 08:01 Last Admin: 01/30/17 14:04 Dose: 25 mls/hr Vancomycin HCl 1,250 mg/ (Dextrose) 250 mls @ 167 mls/hr IVPB RPHPROT [facility] PRN Reason: Protocol Stop: 08/01/17 04:01 Vancomycin HCl 1,750 mg/ (Dextrose) 500 mls @ 333.34 mls/hr IVPB Q12H [facility] Stop: 08/01/17 08:01 Last Infusion: 01/31/17 11:18 Dose: 0 mls/hr Magnesium Sulfate 2 gm/ (Dextrose) 104 mls @ 100 mls/hr IVPB ONCE ONE Stop: 01/30/17 07:09 Last Admin: 01/30/17 19:19 Dose: Naloxone HCl 2 mg/ Sodium (Chloride) 502 mls @ 50 mls/hr IVC .Q10H3M AXEL Stop: 01/30/17 15:59 Last Infusion: 01/30/17 11:22 Dose: 0 mls/hr Magnesium Sulfate 2 gm/ (Dextrose) 104 mls @ 100 mls/hr IVPB ONCE ONE Stop: 01/30/17 11:28 Last Admin: 01/30/17 14:03 Dose: 100 mls/hr Piperacillin Sod/Tazobactam (Sod 3.375 gm/ Dextrose) 100 mls @ 25 mls/hr IVPB 0600,1400,2200 AXEL PRN Reason: Protocol Stop: 08/01/17 08:01 Last Admin: 02/01/17 17:27 Dose: 25 mls/hr Dextrose (Dextrose 5%) 1,000 mls @ 100 mls/hr IV CONT PRN PRN Reason: HYPOGLYCEMIA Stop: 08/02/17 12:26 Sodium Chloride (0.9 % Sodium Chloride) Confirm Administered Dose 500 mls @ as directed .ROUTE .ST-MED ONE Stop: 02/01/17 11:49 Last Admin: 02/01/17 11:58 Dose: Vancomycin HCl 1,500 mg/ (Dextrose) 250 mls @ 166.67 mls/hr IVPB Q24H AXEL Stop: 08/03/17 14:01 Last Admin: 02/01/17 17:26 Dose: 166.67 mls/hr Piperacillin Sod/Tazobactam (Sod 3.375 gm/ Dextrose) 100 mls @ 25 mls/hr IVPB 0200,1000,1800 AXEL PRN Reason: Protocol Stop: 08/03/17 18:01 Last Infusion: 02/02/17 06:39 Dose: 0 mls/hr Vancomycin HCl 1,500 mg/ (Dextrose) 250 mls @ 166.67 mls/hr IVPB Q24H AXEL Stop: 08/04/17 18:01 Sodium Phosphate 30 mmol/ (Dextrose) 110 mls @ 16 mls/hr IVPB ONCE ONE Stop: 02/02/17 14:36 Last Admin: 02/02/17 08:49 Dose: 16 mls/hr Sodium Phosphate 30 mmol/ (Dextrose) 110 mls @ 16 mls/hr IVPB ONCE ONE Stop: 02/03/17 14:27 Last Admin: 02/03/17 10:13 Dose: 16 mls/hr Insulin Detemir (Levemir) 10 unit SQ BID [facility] Stop: 08/04/17 10:46 Last Admin: 02/03/17 10:14 Dose: 10 unit Insulin Human Lispro (Humalog) 0 units SQ HS [facility] PRN Reason: Protocol Stop: 08/02/17 21:01 Last Admin: 02/02/17 20:46 Dose: 5 units Insulin Human Lispro (Humalog) 0 units SQ TIDAC AXEL PRN Reason: Protocol Stop: 08/02/17 12:31 Last Admin: 02/03/17 12:01 Dose: 4 units Lactulose (Lactulose) 30 gm PO TID [facility] Stop: 08/01/17 09:01 Last Admin: 02/03/17 08:48 Dose: Not Given Non-Admin Reason: Patient Refused Levofloxacin (Levofloxacin) 750 mg PO DAILY [facility] Stop: 08/06/17 09:01 Methylprednisolone (Solu-Medrol) 125 mg IVP ONCE ONE Stop: 01/29/17 20:52 Last Admin: 01/29/17 21:17 Dose: 125 mg Methylprednisolone (Solu-Medrol) 40 mg IVP Q6HR [facility] Stop: 08/01/17 06:01 Last Admin: 01/31/17 06:23 Dose: 40 mg Methylprednisolone (Solu-Medrol) 40 mg IVP Q12H [facility] Stop: 08/02/17 08:01 Last Admin: 02/01/17 20:49 Dose: 40 mg Nadolol (Corgard) 20 mg PO HS [facility] Stop: 08/01/17 21:01 Last Admin: 02/02/17 20:41 Dose: 20 mg Naloxone HCl (Narcan) 0.4 mg IVP Q2MIN PRN PRN Reason: Opioid Reversal Stop: 08/01/17 03:33 Naloxone HCl (Narcan) 2 mg IVP ONCE STA Stop: 01/30/17 05:59 Last Admin: 01/30/17 08:04 Dose: 2 mg Nicotine (Nicoderm) 21 mg TD DAILY PRN PRN Reason: Nicotine Cravings Stop: 08/01/17 09:01 Omeprazole (Prilosec) 20 mg PO BID [facility] Stop: 08/01/17 09:01 Last Admin: 02/03/17 08:15 Dose: 20 mg Ondansetron HCl (Zofran) 4 mg IVP Q8HR PRN PRN Reason: Nausea And Vomiting Stop: 08/01/17 03:33 Oxycodone HCl (Roxicodone) 15 mg PO Q4H PRN PRN Reason: Pain Stop: 08/01/17 03:31 Last Admin: 02/03/17 12:04 Dose: 15 mg Pantoprazole Sodium (Protonix) 40 mg IVP DAILY [facility] Stop: 08/01/17 09:01 Last Admin: 02/01/17 08:23 Dose: 40 mg Pharmacy Consult (Kinetic, Aminoglycoside) 1 each .STK-MED ONE Stop: 02/02/17 08:02 Pharmacy Profile Note (Patient Taking Own Medication) 1 each PO QWEEK [facility] Stop: 08/01/17 03:31 Last Admin: 01/30/17 04:13 Dose: Not Given Non-Admin Reason: Home Med Not Available Pharmacy Profile Note (Patient Taking Own Medication) 0 each PO BID [facility] Stop: 08/01/17 09:01 Last Admin: 02/03/17 10:14 Dose: Not Given Non-Admin Reason: Home Med Not Available Prednisone (Prednisone) 40 mg PO DAILY [facility] Stop: 08/04/17 08:01 Last Admin: 02/03/17 08:13 Dose: 40 mg Pregabalin (Lyrica) 75 mg PO BID [facility] Stop: 08/01/17 09:01 Last Admin: 02/03/17 08:11 Dose: 75 mg Spironolactone (Aldactone) 100 mg PO BID [facility] Stop: 08/01/17 09:01 Last Admin: 02/03/17 08:27 Dose: 100 mg Sucralfate (Carafate) 1 gm PO QID [facility] Stop: 08/01/17 09:01 Last Admin: 02/03/17 08:15 Dose: 1 gm Vancomycin HCl (Vancocin) 1 each IVPB AD PRN PRN Reason: SEE COMMENTS Stop: 08/02/17 19:31 Microbiology Results 01/29/17 21:47 Peripheral Venipuncture Blood Culture - Final No growth. 01/29/17 21:41 Peripheral Venipuncture Blood Culture - Final No growth. 01/30/17 15:20 Sputum Sputum Culture - Final 01/30/17 06:20 Urine,Clean Catch Legionella Antigen - Final 01/30/17 06:20 Urine,Clean Catch Streptococcus pneumoniae Antigen (M - Final Nursing Notes 02/03/17 11:10 Nurse Note by Cornelio Garcia Discharge awaiting IV medication to complete Initialized on 02/03/17 11:10 - END OF NOTE 02/03/17 08:30 (created 02/03/17 08:34) Nurse Note by Andrea Burnett After speaking with Dr. Sidhu, Patients called and notified that patient will be discharged today after iv medications are administered around 1 Pm patients agrees with discharge. Patient also notified. Patients Betina reports patient has [facility]. Social work will be notified. Initialized on 02/03/17 08:34 - END OF NOTE 02/02/17 16:10 Clinical Case Mgmt by Diamante Duffy Clinical Case Mgmt Is Patient Currently Being No Followed By Navigation What Brought The Patient To He did not know The Hospital Does The Patient Have A Yes Physician That They See Regularly Regular Provider Tiny Santo Does The PT Have Any Trouble No Getting To Their Appointment Home Environment House Resides With Spouse Does The Patient Plan To Yes Return Home Is There A Caregiver At Home Yes: spouse To Help The Patient Commode Now Wheel Chair Now Walker Now Nebulizer Now,Provider O2 Now,Liters,Provider Is The Patient Appropriate For Yes Case Management Is The Patient Appropriate For No Social Work Consult Referrals Made No Is The PT Appropriate For No Navigation Or Payer Case Mgmt Spoke with patients she stated she understood what medicare would pay for concerning HH. She stated that she would like HH set up through [facility]. I called and spoke with [facility] and told them that the patient is set for discharge tomorrow. Initialized on 02/02/17 16:10 - END OF NOTE 02/02/17 15:10 PT Evaluation by Ryan Almonte (Please sign and return this section for non-electronic signatures) I have reviewed, and agree with, the below stated plan of care: Referring Provider Signature/Printed Name Date Assessment Pt is appropriate for skilled rehab services. PT services are warranted at this time in order to address impairments and functional limitations as stated below. Pt demonstrates poor safety awareness and limited cooperation during PT evaluation. Based on today's assessment, level of functional mobility is primarily limited by dyspnea and poor endurance. Pt would benefit from 24hr supervision and home health PT services in order to ensure safety within home and further facilitate return to [facility]. PT exits room with pt on BSC. Pt's is present and RN is entering room. PT Treatment Diagnosis Other fatigue Rehab Potential Fair Planned Interventions Therapeutic Exercise,Therapeutic Activity,Gait Training,Neuromuscular Reeducation PT Treatment Frequency 3x/wk Estimated PT Needs at Home Health Discharge Pt. will perform all bed Modified Independent mobility Pt. will perform all transfers Modified Independent Pt. will demonstrate gait ____ 25ft, SBA, RW ___ feet with assist Pt. will ascend/descend 2 steps, B HR, CGA steps using handrail Pt. will participate in of 10 minutes continuous activity Pt. will verbally recall Walker Safety/Assistive D precautions without cues Pt. will perform therapeutic Minimal Cues exercise Physical Therapy PT Acute Eval Start: 02/02/17 14: 52 Freq: Status: Active Document 02/02/17 14:52 BANNER (Rec: 02/02/17 15:10 BANNER [id number]) Inpatient Rehab Intake History Date of Admission 01/30/17 Chief Complaint dyspnea PMH/Surgical History Relevant to Rehab arthritis, cirrhosis, COPD, CAD, DM, GERD, hepatitis, HTN, HLD, alpha-1 antitrypsin deficiency, anxiety/depression Factors/Comorbidities Impacting POC COPD DM HTN Medical Diagnosis Diagnosis Acidosis Reason for Referral/Orders Evaluate, develop and implement POC Safety/Limitations Restrictions/Precautions Fall Precautions/Risk Home/PLOF History Provided By Patient Lives With: Spouse Type of Dwelling Single Family Home Number of Floors (Floors) 2 Number of Stairs to Enter (Stairs) 2 Are there handrails? None Bathing Environment Tub/Shower Home Environment Details first-floor set-up Current DME Front Wheeled Walker Wheelchair Bedside Commode (3 in 1) Shower Chair Grab Bars in Shower Grab Bars at Toilet Prior Level Of Function Pt state assists with self-care ADLs. She completes 75% of the work and he completes 25% of the work. completes household management tasks. Prior Mobility Level Pt states he could ambulate short distances in home with use of RW. However, he required w/c for mobility of long distances Patient/Family Goal Pt wishes to return home. Limited subjective information obtained due to limited pt cooperation. Pain Assessment Pain Present Pain Present Reports No Pain Functional Mobility Assessment Bed Mobility Bed Mobility Ability Standby Assistance Bed Mobility Assistive Devices Bed Rail Elevated HOB Bed Transfers Bed Transfer Ability Contact Guard Assist (CGA) Bed Transfer Assistive Devices Rolling Walker Toilet Transfers Commode/Toilet Transfer Ability Contact Guard Assist (CGA) Commode/Toilet Transfer Assistive 3-in-1 Commode Devices Balance Static Sitting Balance Ability Good Dynamic Sitting Balance Ability Good -/Fair + Static Standing Balance Ability Good -/Fair + Dynamic Standing Balance Ability Fair Ambulation Assistive Devices Rolling Walker Endurance Activity Tolerance Fair Gait/Stairs Deviation Assess. General Ambulation Ability Contact Guard Assist (CGA) Ambulation Distance (ft) (feet) 5 Ambulation Assistive Device Rolling Walker Ambulation Ability Comments Pt ambulates bed to [facility] with use of RW. Step-through gait pattern, decreased step length B, slow beth, and forward flexed posture are noted. No major instances of LOB appreciated. Gross Strength/ROM Upper Extremity Gross UE Strength Within Functional Limits Gross UE ROM Within Functional Limits Lower Extremity Gross LE Strength Other (See Detail) Gross LE ROM Within Functional Limits LE ROM/Strength Detail B LE functionally assessed to be >/= 3/5. No MMT completed due to limited pt cooperation. Edema/Skin Integrity Skin Integrity Comment intact Gross Sensorimotor Sensory Gross Sensation No Deficit Noted Coordination Gross Coordination No Deficit Noted Cognition/Visual Assessment Alertness/Orientation Level of Alertness Sleepy Patient Orientation Person Name Date of Awareness/Safety Safety Awareness Situational Awareness Safety Awareness Comment Pt is oriented, but is very sleepy when lying in bed. Alertness improves once pt is sitting EOB. Visual Visual Acuity No Deficits Noted Auditory Hearing Ability Hard of Hearing Comprehension Ability to Follow Directions Follows One Step Follows Two Step Expression/Communication Patient Behavior Uncooperative Speech Pattern Unclear Poor Articulation Expression Summary Pt declines use of gait belt for OOB activities. Rehab Education Education Provided Education Topic Bed Mobility Transfers Gait Safety Awareness Teaching Recipient Patient Teaching Method Verbal Response to Teaching Reinforcement needed Acute Care PT POC Stroke Is patient being assessed for No rehabilitation for diagnosis of stroke? Summary AM-PAC PT Basic Mobility Raw Score 20 AM-PAC CMS 0-100% Impaired Score 33 Problems/Impairments/Functional Decreased Functional Endurance Limitation Decreased Safety/Judgement/ Cognition Decreased Functional Mobility/ Transfers Decreased Standing Tolerance Balance Impaired Gait Decreased Strength Assessment Pt is appropriate for skilled rehab services. PT services are warranted at this time in order to address impairments and functional limitations as stated below. Pt demonstrates poor safety awareness and limited cooperation during PT evaluation. Based on today's assessment, level of functional mobility is primarily limited by dyspnea and poor endurance. Pt would benefit from 24hr supervision and home health PT services in order to ensure safety within home and further facilitate return to [facility]. PT exits room with pt on BSC . Pt's is present and RN is entering room. Rehab Potential Fair Disposition at end of Eval/Treatment Bathroom/Bedside Commode Lines intact RN/RELIGIOUS ACTIVITIES DIRECTOR informed Family in room Call light/phone within reach Tray table within reach All needs met Plan of Care PT Treatment Diagnosis Other fatigue Planned Interventions Therapeutic Exercise Therapeutic Activity Gait Training Neuromuscular Reeducation PT Treatment Frequency 3x/wk Goals Determined With Patient/Family Yes Estimated PT Needs at Discharge Home Health Functional Mobility Goals Pt. will perform all bed mobility with__ Modified Independent ___to increase functional indendence. Pt. will perform all transfers with Modified Independent to increase safe functional mobility and independence. Pt. will demonstrate gait feet 25ft, SBA, RW with assist using to increase functional mobility, strength, and/or endurance. Pt. will ascend/descend steps 2 steps, B HR, CGA using handrails with assistance. ROM/Strength/Endurance Goals Pt. will participate in of 10 minutes continuous activity allowing increased endurance while completing ADLs improving quality of life. Education Goals Pt. will verbally recall precautions Walker Safety/Assistive Device without cues for increased safety & compliance in discharge environment. Pt. will perform therapeutic exercise Minimal Cues with to improve functional ROM, strength, and endurance during all functional activities. Supervising Therapist Supervising Therapist Ryan G Almonte Eval and Re-Eval Charges G-Code Evaluation Time Evaluation Time: Minutes with Patient 20 Complexity Eval/Re-eval Physical Therapy Evaluation High Yes Complexity Documentation Complete PT Charges/Documentation Finished? Yes Last Visit Is patient being discharged from PT No today? Business Needs Financial Class MCR Secondary Payer Y PT G-code Therapy Billing Start: 02/02/17 14: 52 Freq: Status: Active Document 02/02/17 14:52 AGK (Rec: 02/02/17 15:10 AGK [id number]) PT G-codes G-Code Required G-code Required For This Visit No Current G-code Status PT Current Status Mobility PT Current Status Modifier At least 20% but less than 40% impaired, limited or restricted Goal G-code Status PT Goal Status Mobility PT Goal Status Modifer At least 20% but less than 40% impaired, limited or restricted Preliminary Draft Until Electronically Signed by Supervising Therapist Initialized on 02/02/17 15:10 - END OF NOTE 02/01/17 10:09 Nurse Note by Fely Reyes Patient's left upper arm ePIV is leaking. Attempted to flush - good flow, but leaks. Stopped ATB. Page to IV team. Notified NIDHI Roque to replace line. Initialized on 02/01/17 10:09 - END OF NOTE 02/01/17 06:49 Nurse Note by Debbie Mitchell removed. Patient tolerated well. Initialized on 02/01/17 06:49 - END OF NOTE 02/01/17 05:02 Nurse Note by Debbie Mitchell Patient's weight this am 98.0 kg. Weight yesterday was 91.2. Dr. Aguila updated. Initialized on 02/01/17 05:02 - END OF NOTE 01/31/17 15:01 Medicare IM by So Garcia Important Message from Medicare reviewed with Meliton Zelaya Jr and patient verbalized understanding. Original notice provided to patient and signed copy placed on chart. Initialized on 01/31/17 15:01 - END OF NOTE 01/31/17 15:00 Clinical Case Mgmt by Diamante Duffy Clinical Case Mgmt Is Patient Currently Being No Followed By Navigation What Brought The Patient To He did not know The Hospital Does The Patient Have A Yes: He says he goes to Dr. Lira Physician That They See Regularly Does The PT Have Any Trouble No Getting To Their Appointment Home Environment House Resides With Spouse Does The Patient Plan To Yes Return Home Is There A Caregiver At Home Yes: spouse To Help The Patient Commode Now Wheel Chair Now Walker Now Nebulizer Now,Provider O2 Now,Liters,Provider Is The Patient Appropriate For Yes Case Management Is The Patient Appropriate For No Social Work Consult Referrals Made No Is The PT Appropriate For No Navigation Or Payer Case Mgmt Patient plans to return home with . I will continue to follow to see if there are any new home needs that need addressed for discharge. Initialized on 01/31/17 15:00 - END OF NOTE 01/30/17 09:39 Nurse Note by Christy Orellana LATE ENTRY ---- REPORT RECEIVED BY CHAN DEVI RN. Initialized on 01/30/17 09:39 - END OF NOTE 01/30/17 09:35 Nurse Note by Christy Orellana PO MEDICATIONS NOT GIVEN DUE TO PATIENT NOT BEING ALERT ENOUGH TO TAKE THEM. PATIENT ABLE TO STATE NAME AND , HOWEVER, PATIENT SPEECH IS VERY MUMBLED; ALMOST INCOMPREHENSIBLE. PATIENT UNABLE TO STATE PLACE. THIS RN ORIENTED PATIENT TO 2N ENVIRONMENT. Initialized on 01/30/17 09:35 - END OF NOTE 01/30/17 08:47 Nurse Note by Lynsey Christianson This RN could not complete the family history in the initial assessment and the thrombosis risk factor assessment due to patient being drowsy. Initialized on 01/30/17 08:47 - END OF NOTE 01/30/17 08:29 Nurse Note by Lynsey Christianson This RN tried to call the house and cell phone number that was given to this RN. No one answered the phone. Initialized on 01/30/17 08:29 - END OF NOTE 01/30/17 08:11 Nurse Note by Lynsey Christianson This RN gave patient narcan. Patient's blood pressure was 99/62 and pulse was 67 at 0804. After giving narcan, patient's blood pressure was 110/67 and heart rate was 68. Initialized on 01/30/17 08:11 - END OF NOTE 01/29/17 22:58 Transport Report by Lynsey Cornelius Date: 01/29/17 Transport Method: Stretcher No Known Allergies Allergy (Verified 12/16/16 22:42) Resuscitation Status 01/29/17 20:51 ECG 12 lead ECG [ECG] Stat Mode Of Transportation: Stretcher Reason For Exam: dyspnea Exam Performed At:: [facility] 01/29/17 22:56 CTA chest [CT angio chest] [CT] Stat Comment: Mode Of Transportation: Stretcher Reason For Exam: possible pna, hypoxic r/o pe Order Doctor: Royce Cespedes Exam Performed At:: [facility] Allergic to Contrast: No Oxygen: 8 Mental Status: Fall Risk: Isolation: Nurse Required for Transport: No ___ Yes Limb Restrictions: No ___ Yes Behavioral issue/Risk for Elopement: No ___ Yes Telemetry Room Notification: Destination: MRI XRAY STRESS ULTRASOUND CT DIALYSIS ENDO OTHER: Depart Time: Nurse: Transporter: Arrive Time: Received by: ___ Return Time: Nurse: Transporter: ] Initialized on 01/29/17 22:58 - END OF NOTE 01/29/17 22:58 Transport Report by Lynsey Cornelius Date: 01/29/17 Transport Method: Stretcher No Known Allergies Allergy (Verified 12/16/16 22:42) Resuscitation Status 01/29/17 20:51 ECG 12 lead ECG [ECG] Stat Mode Of Transportation: Stretcher Reason For Exam: dyspnea Exam Performed At:: [facility] 01/29/17 22:56 CTA chest [CT angio chest] [CT] Stat Comment: Mode Of Transportation: Stretcher Reason For Exam: possible pna, hypoxic r/o pe Order Doctor: Royce Cespedes Exam Performed At:: [facility] Allergic to Contrast: No Oxygen: 8 Mental Status: Fall Risk: Isolation: Nurse Required for Transport: No ___ Yes Limb Restrictions: No ___ Yes Behavioral issue/Risk for Elopement: No ___ Yes Telemetry Room Notification: Destination: MRI XRAY STRESS ULTRASOUND CT DIALYSIS ENDO OTHER: Depart Time: Nurse: Transporter: Arrive Time: Received by: ___ Return Time: Nurse: Transporter: ] Initialized on 01/29/17 22:58 - END OF NOTE Orders 01/29/17 20:51 Cardiac monitoring [RC] .ONCE Glucose, blood poc measurement [RC] .ONCE Saline lock [RC] .ONCE Supplemental oxygen titration [RC] .ONCE Physician Instructions: Vital Signs Assessment [RC] PROTOCOL XR chest 1V portable [XR] Stat Mode Of Transportation: Stretcher Reason For Exam: dyspnea Exam Performed At:: [facility] Ipratropium/Albuterol Neb [Duoneb] 9 ml IH ONCE ONE MethylPREDNISolone [Solu-MEDROL] 125 mg IVP ONCE ONE ECG 12 lead ECG [ECG] Stat Mode Of Transportation: Stretcher Reason For Exam: dyspnea Exam Performed At:: [facility] 01/29/17 21:41 B-Type Natriuretic Peptide Stat Comment: Specimen: Send someone from the department to collect Basic Metabolic Panel Stat Comment: Specimen: Send someone from the department to collect Complete Blood Count [HEME] Stat Comment: Specimen: Send someone from the department to collect Hepatic Panel Stat Comment: Specimen: Send someone from the department to collect Lactic Acid ([facility] Only) Stat Comment: Specimen: Send someone from the department to collect Troponin I Stat Comment: Specimen: Send someone from the department to collect 01/29/17 21:47 Culture,Blood [BC] Stat Comment: SHEELA Source: Peripheral Venipuncture Quantity: 2 Specimen: Send someone from the department to collect Specimen Description: 01/29/17 22:05 0.9 % Sodium Chloride 500 ml IVC 1,875 mls/hr 01/29/17 22:20 Ammonia Stat Comment: Specimen: Send someone from the department to collect 01/29/17 22:[address] Stat Comment: Reason for Visit: weakness, ams 01/29/17 22:55 0.9 % Sodium Chloride 1,000 ml IV BOLUS 01/29/17 22:56 CTA chest [CT angio chest] [CT] Stat Comment: Mode Of Transportation: Stretcher Reason For Exam: possible pna, hypoxic r/o pe Order Doctor: Royce Cespedes Exam Performed At:: [facility] Allergic to Contrast: No Levofloxacin 750 MG/150 ML [Levaquin 750mg/150 mL] 750 mg in 150 ml IVPB ONCE 01/30/17 00:05 Piperacillin/Tazobactam [Zosyn] 4.5 gm D5% in Water (Mini-Bag+) [Dextrose 5% ( Minibag+) 100 ML] 100 ml IVPB ONCE Vancomycin [Vancocin] 1,000 mg D5% in Water [Dextrose 5%] 250 ml IV ONCE 01/30/17 00:23 0.9 % Sodium Chloride 1,000 ml .ROUTE As Directed 01/30/17 00:37 0.9 % Sodium Chloride 1,200 ml IV BOLUS 01/30/17 00:47 Lactic Acid ([facility] Only) Timed Comment: Specimen: Send someone from the department to collect 01/30/17 02:59 POC Glucometer Test [POC] Routine 01/30/17 03:30 Alprazolam [Xanax] 0.5 mg PO BID PRN OxyCODONE Immed Rel [Roxicodone] 15 mg PO Q4H PRN Patient Taking Own Medication 1 each PO QWEEK How will this medication be supplied?: Pharmacy to Subsitute 01/30/17 03:32 Cardiac monitoring [RC] .ONCE Head of bed elevation [RC] .ONCE Peripheral IV [RC] CONT Vital Signs Assessment [RC] Q4H Consult to Nurse Navigator [CONS] Routine Comment: Acetaminophen [Tylenol] 650 mg PO Q6HR PRN Albuterol Neb [Proventil Neb] 2.5 mg IH Q2H PRN Docusate [Colace] 100 mg PO BID PRN HYDROmorphone (PF) [Dilaudid] 0.5 mg IVP Q4HR PRN Naloxone [Narcan] 0.4 mg IVP Q2MIN PRN Nicotine Patch [Nicoderm] 21 mg TD DAILY PRN Ondansetron [Zofran] 4 mg IVP Q8HR PRN Resuscitation Status: Active [RES] Routine Comment: Resuscitation Status: Full Code 01/30/17 03:36 Placement to Observation Routine Physician Instructions: Reason for Visit: Difficulty breathing Is VTE Prophylaxis Indicated?: Yes 01/30/17 03:37 Bed rest [RC] .CONT Physician Instructions: Bed rest w/bathroom privileges [RC] .PRN Cardiac Monitoring Med/Surg [RC] .CONT Telemetry Reason: Stroke/Syncope/TIA Continuous pulse oximetry [RC] CONT Comment: Measure intake and output [RC] QSHIFT Measure weight [RC] DAILY 01/30/17 03:38 Oxygen via nasal cannula Nasal Cannula 2 lpm Comment: Titrate O2 to main O2 sat greater than: 92% RT has an order or consult [RC] NOW 01/30/17 03:42 Oxygen via nasal cannula Nasal Cannula 2 lpm Comment: Titrate O2 to main O2 sat greater than: 90% 01/30/17 03:45 0.9 % Sodium Chloride 1,000 ml IVC 75 mls/hr 01/30/17 03:47 Apply anti-embolic stockings [RC] .NOW Aspiration precautions [RC] .CONTINUOUS BIPAP [RC] PRN Fall Precautions Acute [RC] q12h Incentive Spirometry [RC] .6 TIMES PER HR WHILE AWAKE Seizure precautions [RC] CONT Benzonatate [Tessalon] 100 mg PO TID PRN 01/30/17 03:49 BIPAP/CPAP On/Off Times [RC] ONCE RT has an order or consult [RC] NOW 01/30/17 04:00 Vancomycin [Vancocin (wt based)] 1,250 mg D5% in Water [Dextrose 5%] 250 ml IVPB RPHPROT 01/30/17 04:45 Activated Partial Thrombo Time [COAG] AM 0400 Comment: Specimen: Send someone from the department to collect B-Type Natriuretic Peptide AM 0400 Comment: Specimen: Send someone from the department to collect C-Reactive Protein AM 0400 Comment: Specimen: Send someone from the department to collect Hgb A1C AM 0400 Comment: Specimen: Send someone from the department to collect Ionized Calcium AM 0400 Comment: Specimen: Send someone from the department to collect Lactic Acid ([facility] Only) Stat Comment: Specimen: Send someone from the department to collect Lipid Panel AM 0400 Comment: Specimen: Send someone from the department to collect Magnesium AM 0400 Comment: Specimen: Send someone from the department to collect Phosphorous AM 0400 Comment: Specimen: Send someone from the department to collect Prolactin Routine Prothrombin Time INR [COAG] AM 0400 Comment: Specimen: Send someone from the department to collect Thyroid Stimulating Hormone AM 0400 Comment: Specimen: Send someone from the department to collect Troponin I Q6H Comment: Specimen: Send someone from the department to collect Venous Blood Gas AM 0400 Comment: Specimen: Send someone from the department to collect 01/30/17 05:00 Ipratropium/Albuterol Neb [Duoneb] 3 ml IH QIDR 01/30/17 05:57 Transfer Patient [RC] ONCE Patient Transfer: Telemetry Med/Surg ICU Specific Unit: 2[facility] 01/30/17 05:58 0.9 % Sodium Chloride 500 ml Naloxone [Narcan] 2 mg IVC 50 mls/hr Naloxone [Narcan] 2 mg IVP ONCE STA 01/30/17 06:00 Heparin 5,000 unit SQ Q8HCO MethylPREDNISolone [Solu-MEDROL] 40 mg IVP Q6HR 01/30/17 06:07 CT head/brain wo con [CT] Routine Mode Of Transportation: Stretcher Reason For Exam: Stupor/delirium Order Doctor: Derrell Aguila Exam Performed At:: [facility] Allergic to Contrast: No Magnesium Sulfate 2 gm D5% in Water [Dextrose 5%] 100 ml IVPB ONCE 01/30/17 06:15 Lactulose 200 gm Sodium Chloride IRRigation [0.9% Sodium Chl Irrigation 1000 Ml ] 700 ml RC Q6H 01/30/17 06:20 Legionella Antigen [RM] AM 0400 Comment: SHEELA Source: Urine,Clean Catch Specimen: Send someone from the department to collect Specimen Description: S. Pneumoniae Antigen [RM] AM 0400 Comment: SHEELA Source: Urine,Clean Catch Specimen: Send someone from the department to collect Specimen Description: Urinalysis reflex Microscopic [URIN] AM 0400 Comment: Specimen: Send someone from the department to collect Source of specimen:: Not Supplied 01/30/17 07:00 Acetylcysteine 10% 2 ml IH [id number] 01/30/17 08:00 Piperacillin/Tazobactam [Zosyn] 3.375 gm D5% in Water (Mini-Bag+) [Dextrose 5 % (Minibag+) 100 ML] 100 ml IVPB Q8HR Vancomycin [Vancocin] 1,750 mg D5% in Water [Dextrose 5%] 500 ml IVPB Q12H 01/30/17 09:00 Benzonatate [Tessalon] 100 mg PO TID Docusate [Colace] 100 mg PO TID Famotidine [Pepcid] 20 mg PO BID How will this medication be supplied?: Pharmacy to Subsitute Furosemide [Lasix] 40 mg PO DAILY GuaiFENesin ER [Mucinex] 1,200 mg PO BID Lactulose 30 gm PO TID Levofloxacin 750 MG/150 ML [Levaquin 750mg/150 mL] 750 mg in 150 ml IVPB DAILY Omeprazole [PriLOSEC] 20 mg PO BID How will this medication be supplied?: Pharmacy to Subsitute Pantoprazole [Protonix] 40 mg IVP DAILY Patient Taking Own Medication 0 each PO BID How will this medication be supplied?: Pharmacy to Subsitute Pregabalin [Lyrica] 75 mg PO BID How will this medication be supplied?: Pharmacy to Subsitute Spironolactone [Aldactone] 100 mg PO BID Sucralfate [Carafate] 1 gm PO QID 01/30/17 10:20 Admit as Inpatient Routine Estimated Total Length of Stay (Days): 3 Plans for Post Hospital Care: Home Inpatient Status Required: Unresolved acute problem Explain each choice below Explain Concerns: IV antibiotics, paracentesis Potential Adverse Outcome: Respiratory Failure Is VTE Prophylaxis Indicated?: Yes 01/30/17 10:26 Magnesium Sulfate 2 gm D5% in Water [Dextrose 5%] 100 ml IVPB ONCE 01/30/17 10:35 Troponin I Q6H Comment: Specimen: Send someone from the department to collect 01/30/17 11:09 EPIV Insertion [RC] .once Powerglide indications: Limited vascular access 01/30/17 15:20 Culture,Sputum with Gram Stain [RM] Routine Comment: SHEELA Source: Sputum Specimen: Send someone from the department to collect Specimen Description: 01/30/17 16:49 Troponin I Q6H Comment: Specimen: Send someone from the department to collect 01/30/17 21:00 Amitriptyline [Elavil] 50 mg PO HS Dextromethorphan Polistrx(12h) [Delsym 12-HR] 60 mg PO HS Nadolol [Corgard] 20 mg PO HS 01/30/17 22:00 Piperacillin/Tazobactam [Zosyn] 3.375 gm D5% in Water (Mini-Bag+) [Dextrose 5 % (Minibag+) 100 ML] 100 ml IVPB 0600,1400,2200 01/30/17 Breakfast Cardiac Diet Diet Modifications: 01/31/17 08:00 MethylPREDNISolone [Solu-MEDROL] 40 mg IVP Q12H 01/31/17 08:13 Ammonia Routine Comment: Specimen: Send someone from the department to collect Basic Metabolic Panel Routine Comment: Specimen: Send someone from the department to collect Complete Blood Count [HEME] Routine Comment: Specimen: Send someone from the department to collect Lactic Acid ([facility] Only) Routine Comment: Specimen: Send someone from the department to collect 01/31/17 11:26 Occult Blood,Stool [BF] Stat Comment: Specimen: Send someone from the department to collect 01/31/17 11:49 POC Glucometer Test [POC] Routine 01/31/17 12:25 Hypoglycemia Treatment Orders [RC] .once Notify provider [RC] once Physician Instructions: D5% in Water [Dextrose 5%] 1,000 ml IV CONT Dextrose 50 % in Water (Syg) [Dextrose 50% (Syg)] 25 ml IVP AD PRN Dextrose Gel [Gluctose] 15 gm PO ONCE PRN Dextrose Gel [Gluctose] 30 gm PO ONCE PRN Glucagon, Human Recombinant [GlucaGen] 1 mg IM ONCE PRN 01/31/17 12:26 Glucose, blood poc measurement [RC] .ACHS 01/31/17 12:30 Insulin LISPRO [HumaLOG] See Protocol SQ TIDAC 01/31/17 16:11 POC Glucometer Test [POC] Routine 01/31/17 18:15 Vancomycin,Trough Timed Comment: Specimen: Send someone from the department to collect 01/31/17 19:30 Vancomycin [Vancocin] 1 each IVPB AD PRN 01/31/17 21:00 Insulin LISPRO [HumaLOG] See Protocol SQ HS 01/31/17 21:51 POC Glucometer Test [POC] Routine 01/31/17 Dinner Diabetic Diet Diet Modifications: Dietary Supplement Comment: Diet Modifications: ensure high protein bfast and din 01/31/17 Lunch Diabetic Diet Diet Modifications: 02/01/17 IR paracentesis ultrasound [IR] Routine Mode Of Transportation: Stretcher Reason For Exam: PARA Order Doctor: Lana Melo Additional Notes/Special Instructions: 02/01/17 04:13 Basic Metabolic Panel AM 0400 Comment: Specimen: Send someone from the department to collect Complete Blood Count [HEME] AM 0400 Comment: Specimen: Send someone from the department to collect Magnesium AM 0400 Comment: Specimen: Send someone from the department to collect Vancomycin,Random AM 0400 Comment: Specimen: Send someone from the department to collect 02/01/17 07:22 POC Glucometer Test [POC] Routine 02/01/17 07:40 Transfusion, red blood cells [RC] .STAT 02/01/17 07:58 Consult to Interventional Radiology [CONS] Routine Consulting Provider: Radiology Interventional Cols Reason for Consult: paracentesis Call Completed: Yes 02/01/17 08:50 Red Blood Cells [BBK] Stat BBK Wristband Number: [id number] Comment: Quantity: 2 Specimen: Send someone from the department to collect Indicate Reason for RBC Trans: Hgb <8g/dl with: Indicate condition for HGB <8: Signs/Symtoms of Anemia Has pt been within the last 3 months?: No Has pt been transfused within the last 3 months?: Yes Type and Screen [BBK] Stat BBK Wristband Number: [id number] 02/01/17 09:51 pneumatic [Intermittent pneumatic haleigh] [RC] .CONTINUOUS Intermit Pneumatic Compression Device: Calf Pumps 02/01/17 10:38 Lactic Acid ([facility] Only) Stat Comment: Specimen: Send someone from the department to collect 02/01/17 11:09 POC Glucometer Test [POC] Routine 02/01/17 11:24 VITALS [Post-op Vital Signs] [RC] .Q30M X1 02/01/17 11:48 0.9 % Sodium Chloride 500 ml .ROUTE As Directed 02/01/17 14:00 Vancomycin [Vancocin] 1,500 mg D5% in Water [Dextrose 5%] 250 ml IVPB Q24H 02/01/17 16:02 POC Glucometer Test [POC] Routine 02/01/17 18:00 Piperacillin/Tazobactam [Zosyn] 3.375 gm D5% in Water (Mini-Bag+) [Dextrose 5 % (Minibag+) 100 ML] 100 ml IVPB 0200,1000,1800 02/01/17 20:26 POC Glucometer Test [POC] Routine 02/02/17 04:45 Basic Metabolic Panel AM 0400 Comment: Specimen: Send someone from the department to collect Complete Blood Count [HEME] AM 0400 Comment: Specimen: Send someone from the department to collect Magnesium AM 0400 Comment: Specimen: Send someone from the department to collect Phosphorous AM 0400 Comment: Specimen: Send someone from the department to collect 02/02/17 07:29 POC Glucometer Test [POC] Routine 02/02/17 07:44 Sodium Phosphate 30 mmol D5% in Water [Dextrose 5%] 100 ml IVPB ONCE 02/02/17 08:00 PredniSONE 40 mg PO DAILY 02/02/17 08:01 Aminoglycoside Consult [Kinetic, Aminoglycoside] 1 each .[facility] 02/02/17 10:23 Consult to Physical Therapy [CONS] Stat Comment: Evaluate, develop and implement POC 02/02/17 10:45 Insulin DETEMIR [Levemir] 10 unit SQ BID 02/02/17 11:28 POC Glucometer Test [POC] Routine 02/02/17 15:53 POC Glucometer Test [POC] Routine 02/02/17 18:00 Vancomycin [Vancocin] 1,500 mg D5% in Water [Dextrose 5%] 250 ml IVPB Q24H 02/02/17 20:32 POC Glucometer Test [POC] Routine 02/02/17 22:00 Budesonide/Formoterol 160/4.5 [Symbicort] 2 puff IH BIDR 02/03/17 04:27 Basic Metabolic Panel AM 0400 Comment: Specimen: Send someone from the department to collect Complete Blood Count [HEME] AM 0400 Comment: Specimen: Send someone from the department to collect Lactic Acid ([facility] Only) AM 0400 Comment: Specimen: Send someone from the department to collect Magnesium AM 0400 Comment: Specimen: Send someone from the department to collect Phosphorous AM 0400 Comment: Specimen: Send someone from the department to collect 02/03/17 07:13 POC Glucometer Test [POC] Routine 02/03/17 07:35 Sodium Phosphate 30 mmol D5% in Water [Dextrose 5%] 100 ml IVPB ONCE 02/03/17 10:19 Discharge Order [DISCHARGE] Routine Comment: 02/03/17 11:13 POC Glucometer Test [POC] Routine 02/04/17 09:00 Levofloxacin 750 mg PO DAILY Vital Signs Temp Pulse Resp BP Pulse Ox 02/03/17 11:16 97.8 F 71 18 104/65 94 L 02/03/17 11:07 20 91 L 02/03/17 07:20 98.3 F 72 20 118/74 94 L 02/03/17 03:53 98.5 F 84 14 127/72 92 L 02/03/17 00:20 98.0 F 77 12 111/68 92 L 02/02/17 22:35 16 95 02/02/17 20:37 97.5 F L 74 17 106/53 95 02/02/17 17:13 78 02/02/17 17:06 16 122/78 95 02/02/17 16:48 97.9 F 92 16 116/69 95 02/02/17 12:26 68 02/02/17 11:23 98 F 62 16 122/78 95 02/02/17 11:12 14 95 02/02/17 09:04 63 02/02/17 07:25 97.6 F 64 14 102/52 95 02/02/17 04:40 97.4 F L 71 16 107/67 94 L 02/01/17 23:53 14 93 L 02/01/17 23:28 97.9 F 74 12 113/66 93 L 02/01/17 19:41 98.1 F 81 16 111/74 94 L 02/01/17 17:20 96 F L 78 14 107/69 94 L 02/01/17 16:19 81 94 L 02/01/17 16:14 16 96 02/01/17 15:23 98.6 F 76 16 99/54 96 02/01/17 15:08 97.4 F L 78 14 92/52 96 02/01/17 14:53 97.4 F L 78 14 92/52 96 02/01/17 13:24 66 94 L 02/01/17 12:27 96.6 F L 76 18 103/56 95 02/01/17 12:12 97.3 F L 72 16 101/63 99 02/01/17 11:15 72 16 102/57 97 02/01/17 10:55 16 99 02/01/17 07:57 61 95 02/01/17 07:26 98.2 F 61 16 94/52 95 02/01/17 05:05 98 02/01/17 04:44 98.4 F 65 15 106/53 95 02/01/17 00:14 97.8 F 79 14 120/72 93 L 01/31/17 22:50 18 92 L 01/31/17 22:12 97.5 F L 79 16 112/65 96 01/31/17 16:59 16 97 01/31/17 16:05 97.9 F 77 16 119/64 97 01/31/17 11:39 98.2 F 81 16 90/51 93 L 01/31/17 10:38 18 94 L 01/31/17 10:20 81 94 L 01/31/17 07:00 97.5 F L 77 16 98/65 97 01/31/17 04:40 97.2 F L 76 15 101/60 96 01/31/17 04:35 97 01/31/17 00:15 98.1 F 84 17 101/81 95 01/30/17 23:36 15 98 01/30/17 19:39 97.2 F L 85 15 129/73 94 L 01/30/17 17:11 98.1 F 85 12 125/63 95 01/30/17 13:14 97.8 F 87 12 91/64 92 L 01/30/17 11:39 78 01/30/17 11:09 18 97 01/30/17 09:44 73 01/30/17 09:10 97.6 F 73 18 116/77 97 05 05:42 96.5 F L 67 16 100/67 90 L 01/30/17 05:01 18 93 L 01/30/17 02:52 97.3 F L 71 12 110/69 93 L 01/30/17 01:31 18 113/79 0305/17 01:19 71 18 113/79 96 01/29/17 22:57 71 20 85/34 93 L 01/29/17 22:04 71 16 84/48 100 01/29/17 21:21 72 20 93/68 99 01/29/17 21:06 18 96 01/29/17 20:34 97.8 F 80 16 103/68 94 L Laboratory Results 01/29/17 01/29/17 01/29/17 Range/Units 21:41 21:41 21:41 WBC 10.9 (4.3-11.1) K/mcL RBC 3.00 L (4.19-5.50) M/mcL Hgb 9.2 L (12.9-16.9) g/dL Hct 28.1 L (37.5-50.1) % MCV 93.7 (83.0-100.0) fL MCH 30.7 (28.0-33.3) pg MCHC 32.7 (31.6-35.5) g/dL RDW 16.3 H (11.5-14.5) % Plt Count 172 (140-400) K/mcL MPV 9.9 (9.4-12.4) fL Immature Gran % 0.5 (0-4) % Seg Neutrophils % 69.5 % Lymphocytes % 13.0 % Monocytes % 13.1 % Eosinophils % 3.5 % Basophils % 0.4 % Neutrophils # 7.6 (1.6-8.9) K/mcL Lymphocytes # 1.4 (0.6-4.6) K/mcL Monocytes # 1.4 H (0.0-1.3) K/mcL Eosinophils # 0.4 (0.0-0.6) K/mcL Basophils # 0.0 (0.0-0.2) K/mcL Immature Plt Fraction 2.1 (1.1-6.1) % PT (9.4-12.1) Seconds INR APTT (26.0-36.0) Seconds VBG pH (7.32-7.42) pH Units VBG pCO2 (41-51) mmHg VBG pO2 (25-40) mmHg VBG HCO3 (21-27) mEq/L Sodium 136 (136-145) mEq/L Potassium 4.8 H (3.5-4.5) mEq/L Chloride 104 (98-109) mEq/L Carbon Dioxide 22 (19-29) mEq/L BUN 25 (8-26) mg/dL Creatinine 1.02 (0.72-1.25) mg/dL Est GFR ( Amer) > 60 (> 60) Est GFR (Non-Af Amer) > 60 (> 60) BUN/Creatinine Ratio 25 (6-26) Glucose 111 H (70-99) mg/dL POC Glucose (58-89) Est Mean Plasma Glucose mg/dl Hemoglobin A1c ( - 5.6) % Calculated Osmolality 287 (280-300) Lactic Acid 3.5 H (0.5-2.2) mmol/L Calcium 9.0 (8.6-10.8) mg/dL Ionized Calcium (1.15-1.35) mmol/L Phosphorus (2.3-4.7) mg/dL Magnesium (1.6-2.6) mg/dL Total Bilirubin 1.6 H (0.2-1.2) mg/dL Direct Bilirubin 0.8 H (0.0-0.5) mg/dL Indirect Bilirubin 0.8 (0.0-1.2) mg/dL AST 57 H (5-34) Units/L ALT 22 (0-55) Units/L Alkaline Phosphatase 119 (38-126) Units/L Ammonia (18-72) mcmol/L Troponin I (0-0.03) ng/mL C-Reactive Protein (Less than 5) mg/L B-Natriuretic Peptide (0-100) pg/mL Serum Total Protein 8.5 H (6.0-8.3) g/dL Albumin 2.1 L (3.5-5.0) g/dL Globulin 6.4 H (2.4-3.5) g/dL Albumin/Globulin Ratio 0.3 L (1.1-2.2) Triglycerides (< 150) mg/dL Cholesterol (< 200) mg/dL LDL Cholesterol, Calc (0-99) mg/dL VLDL Cholesterol, Calc (< 31) mg/dL HDL Cholesterol (40-59) mg/dL Cholesterol/HDL Ratio (0-4.9) TSH (0.350-4.840) mcIU/mL Prolactin (3.46-19.40) ng/mL Urine Color (Yellow) Urine Clarity (Clear) Urine pH (5.0-8.0) pH Units Ur Specific [place] (1.010-1.025) Urine Protein (Neg-Trace) mg/dL Urine Glucose (UA) (Normal) mg/dL Urine Ketones (Negative) mg/dL Urine Blood (Negative) Urine Nitrite (Negative) Urine Bilirubin (Negative) Urine Urobilinogen (Normal) mg/dL Ur Leukocyte Esterase (Negative) Stool Occult Blood (Negative) Vancomycin Trough (10-20) mcg/mL Random Vancomycin mcg/mL Blood Type Antibody Screen MTS Gel Crossmatch 01/29/17 01/29/17 01/29/17 Range/Units 21:41 21:41 22:20 WBC (4.3-11.1) K/mcL RBC (4.19-5.50) M/mcL Hgb (12.9-16.9) g/dL Hct (37.5-50.1) % MCV (83.0-100.0) fL MCH (28.0-33.3) pg MCHC (31.6-35.5) g/dL RDW (11.5-14.5) % Plt Count (140-400) K/mcL MPV (9.4-12.4) fL Immature Gran % (0-4) % Seg Neutrophils % % Lymphocytes % % Monocytes % % Eosinophils % % Basophils % % Neutrophils # (1.6-8.9) K/mcL Lymphocytes # (0.6-4.6) K/mcL Monocytes # (0.0-1.3) K/mcL Eosinophils # (0.0-0.6) K/mcL Basophils # (0.0-0.2) K/mcL Immature Plt Fraction (1.1-6.1) % PT (9.4-12.1) Seconds INR APTT (26.0-36.0) Seconds VBG pH (7.32-7.42) pH Units VBG pCO2 (41-51) mmHg VBG pO2 (25-40) mmHg VBG HCO3 (21-27) mEq/L Sodium (136-145) mEq/L Potassium (3.5-4.5) mEq/L Chloride (98-109) mEq/L Carbon Dioxide (19-29) mEq/L BUN (8-26) mg/dL Creatinine (0.72-1.25) mg/dL Est GFR ( Amer) (> 60) Est GFR (Non-Af Amer) (> 60) BUN/Creatinine Ratio (6-26) Glucose (70-99) mg/dL POC Glucose (58-89) Est Mean Plasma Glucose mg/dl Hemoglobin A1c ( - 5.6) % Calculated Osmolality (280-300) Lactic Acid (0.5-2.2) mmol/L Calcium (8.6-10.8) mg/dL Ionized Calcium (1.15-1.35) mmol/L Phosphorus (2.3-4.7) mg/dL Magnesium (1.6-2.6) mg/dL Total Bilirubin (0.2-1.2) mg/dL Direct Bilirubin (0.0-0.5) mg/dL Indirect Bilirubin (0.0-1.2) mg/dL AST (5-34) Units/L ALT (0-55) Units/L Alkaline Phosphatase (38-126) Units/L Ammonia 85 H (18-72) mcmol/L Troponin I 0.00 (0-0.03) ng/mL C-Reactive Protein (Less than 5) mg/L B-Natriuretic Peptide 51 (0-100) pg/mL Serum Total Protein (6.0-8.3) g/dL Albumin (3.5-5.0) g/dL Globulin (2.4-3.5) g/dL Albumin/Globulin Ratio (1.1-2.2) Triglycerides (< 150) mg/dL Cholesterol (< 200) mg/dL LDL Cholesterol, Calc (0-99) mg/dL VLDL Cholesterol, Calc (< 31) mg/dL HDL Cholesterol (40-59) mg/dL Cholesterol/HDL Ratio (0-4.9) TSH (0.350-4.840) mcIU/mL Prolactin (3.46-19.40) ng/mL Urine Color (Yellow) Urine Clarity (Clear) Urine pH (5.0-8.0) pH Units Ur Specific [place] (1.010-1.025) Urine Protein (Neg-Trace) mg/dL Urine Glucose (UA) (Normal) mg/dL Urine Ketones (Negative) mg/dL Urine Blood (Negative) Urine Nitrite (Negative) Urine Bilirubin (Negative) Urine Urobilinogen (Normal) mg/dL Ur Leukocyte Esterase (Negative) Stool Occult Blood (Negative) Vancomycin Trough (10-20) mcg/mL Random Vancomycin mcg/mL Blood Type Antibody Screen MTS Gel Crossmatch 01/30/17 01/30/17 01/30/17 Range/Units 00:47 02:59 04:45 WBC (4.3-11.1) K/mcL RBC (4.19-5.50) M/mcL Hgb (12.9-16.9) g/dL Hct (37.5-50.1) % MCV (83.0-100.0) fL MCH (28.0-33.3) pg MCHC (31.6-35.5) g/dL RDW (11.5-14.5) % Plt Count (140-400) K/mcL MPV (9.4-12.4) fL Immature Gran % (0-4) % Seg Neutrophils % % Lymphocytes % % Monocytes % % Eosinophils % % Basophils % % Neutrophils # (1.6-8.9) K/mcL Lymphocytes # (0.6-4.6) K/mcL Monocytes # (0.0-1.3) K/mcL Eosinophils # (0.0-0.6) K/mcL Basophils # (0.0-0.2) K/mcL Immature Plt Fraction (1.1-6.1) % PT (9.4-12.1) Seconds INR APTT (26.0-36.0) Seconds VBG pH (7.32-7.42) pH Units VBG pCO2 (41-51) mmHg VBG pO2 (25-40) mmHg VBG HCO3 (21-27) mEq/L Sodium (136-145) mEq/L Potassium (3.5-4.5) mEq/L Chloride (98-109) mEq/L Carbon Dioxide (19-29) mEq/L BUN (8-26) mg/dL Creatinine (0.72-1.25) mg/dL Est GFR ( Amer) (> 60) Est GFR (Non-Af Amer) (> 60) BUN/Creatinine Ratio (6-26) Glucose (70-99) mg/dL POC Glucose 163 H (58-89) Est Mean Plasma Glucose mg/dl Hemoglobin A1c ( - 5.6) % Calculated Osmolality (280-300) Lactic Acid 4.0 H* 4.4 H* (0.5-2.2) mmol/L Calcium (8.6-10.8) mg/dL Ionized Calcium (1.15-1.35) mmol/L Phosphorus (2.3-4.7) mg/dL Magnesium (1.6-2.6) mg/dL Total Bilirubin (0.2-1.2) mg/dL Direct Bilirubin (0.0-0.5) mg/dL Indirect Bilirubin (0.0-1.2) mg/dL AST (5-34) Units/L ALT (0-55) Units/L Alkaline Phosphatase (38-126) Units/L Ammonia (18-72) mcmol/L Troponin I (0-0.03) ng/mL C-Reactive Protein (Less than 5) mg/L B-Natriuretic Peptide (0-100) pg/mL Serum Total Protein (6.0-8.3) g/dL Albumin (3.5-5.0) g/dL Globulin (2.4-3.5) g/dL Albumin/Globulin Ratio (1.1-2.2) Triglycerides (< 150) mg/dL Cholesterol (< 200) mg/dL LDL Cholesterol, Calc (0-99) mg/dL VLDL Cholesterol, Calc (< 31) mg/dL HDL Cholesterol (40-59) mg/dL Cholesterol/HDL Ratio (0-4.9) TSH (0.350-4.840) mcIU/mL Prolactin (3.46-19.40) ng/mL Urine Color (Yellow) Urine Clarity (Clear) Urine pH (5.0-8.0) pH Units Ur Specific [place] (1.010-1.025) Urine Protein (Neg-Trace) mg/dL Urine Glucose (UA) (Normal) mg/dL Urine Ketones (Negative) mg/dL Urine Blood (Negative) Urine Nitrite (Negative) Urine Bilirubin (Negative) Urine Urobilinogen (Normal) mg/dL Ur Leukocyte Esterase (Negative) Stool Occult Blood (Negative) Vancomycin Trough (10-20) mcg/mL Random Vancomycin mcg/mL Blood Type Antibody Screen MTS Gel Crossmatch 01/30/17 01/30/17 01/30/17 Range/Units 04:45 04:45 04:45 WBC (4.3-11.1) K/mcL RBC (4.19-5.50) M/mcL Hgb (12.9-16.9) g/dL Hct (37.5-50.1) % MCV (83.0-100.0) fL MCH (28.0-33.3) pg MCHC (31.6-35.5) g/dL RDW (11.5-14.5) % Plt Count (140-400) K/mcL MPV (9.4-12.4) fL Immature Gran % (0-4) % Seg Neutrophils % % Lymphocytes % % Monocytes % % Eosinophils % % Basophils % % Neutrophils # (1.6-8.9) K/mcL Lymphocytes # (0.6-4.6) K/mcL Monocytes # (0.0-1.3) K/mcL Eosinophils # (0.0-0.6) K/mcL Basophils # (0.0-0.2) K/mcL Immature Plt Fraction (1.1-6.1) % PT 21.6 H (9.4-12.1) Seconds INR 2.0 APTT 29.9 (26.0-36.0) Seconds VBG pH (7.32-7.42) pH Units VBG pCO2 (41-51) mmHg VBG pO2 (25-40) mmHg VBG HCO3 (21-27) mEq/L Sodium (136-145) mEq/L Potassium (3.5-4.5) mEq/L Chloride (98-109) mEq/L Carbon Dioxide (19-29) mEq/L BUN (8-26) mg/dL Creatinine (0.72-1.25) mg/dL Est GFR ( Amer) (> 60) Est GFR (Non-Af Amer) (> 60) BUN/Creatinine Ratio (6-26) Glucose (70-99) mg/dL POC Glucose (58-89) Est Mean Plasma Glucose mg/dl Hemoglobin A1c ( - 5.6) % Calculated Osmolality (280-300) Lactic Acid (0.5-2.2) mmol/L Calcium (8.6-10.8) mg/dL Ionized Calcium (1.15-1.35) mmol/L Phosphorus 3.9 (2.3-4.7) mg/dL Magnesium 1.1 L (1.6-2.6) mg/dL Total Bilirubin (0.2-1.2) mg/dL Direct Bilirubin (0.0-0.5) mg/dL Indirect Bilirubin (0.0-1.2) mg/dL AST (5-34) Units/L ALT (0-55) Units/L Alkaline Phosphatase (38-126) Units/L Ammonia (18-72) mcmol/L Troponin I 0.00 (0-0.03) ng/mL C-Reactive Protein (Less than 5) mg/L B-Natriuretic Peptide (0-100) pg/mL Serum Total Protein (6.0-8.3) g/dL Albumin (3.5-5.0) g/dL Globulin (2.4-3.5) g/dL Albumin/Globulin Ratio (1.1-2.2) Triglycerides 71 (< 150) mg/dL Cholesterol 103 (< 200) mg/dL LDL Cholesterol, Calc 77 (0-99) mg/dL VLDL Cholesterol, Calc 14 (< 31) mg/dL HDL Cholesterol 12 L (40-59) mg/dL Cholesterol/HDL Ratio 8.6 H (0-4.9) TSH (0.350-4.840) mcIU/mL Prolactin 105.65 H (3.46-19.40) ng/mL Urine Color (Yellow) Urine Clarity (Clear) Urine pH (5.0-8.0) pH Units Ur Specific [place] (1.010-1.025) Urine Protein (Neg-Trace) mg/dL Urine Glucose (UA) (Normal) mg/dL Urine Ketones (Negative) mg/dL Urine Blood (Negative) Urine Nitrite (Negative) Urine Bilirubin (Negative) Urine Urobilinogen (Normal) mg/dL Ur Leukocyte Esterase (Negative) Stool Occult Blood (Negative) Vancomycin Trough (10-20) mcg/mL Random Vancomycin mcg/mL Blood Type Antibody Screen MTS Gel Crossmatch 01/30/17 01/30/17 01/30/17 Range/Units 04:45 04:45 04:45 WBC (4.3-11.1) K/mcL RBC (4.19-5.50) M/mcL Hgb (12.9-16.9) g/dL Hct (37.5-50.1) % MCV (83.0-100.0) fL MCH (28.0-33.3) pg MCHC (31.6-35.5) g/dL RDW (11.5-14.5) % Plt Count (140-400) K/mcL MPV (9.4-12.4) fL Immature Gran % (0-4) % Seg Neutrophils % % Lymphocytes % % Monocytes % % Eosinophils % % Basophils % % Neutrophils # (1.6-8.9) K/mcL Lymphocytes # (0.6-4.6) K/mcL Monocytes # (0.0-1.3) K/mcL Eosinophils # (0.0-0.6) K/mcL Basophils # (0.0-0.2) K/mcL Immature Plt Fraction (1.1-6.1) % PT (9.4-12.1) Seconds INR APTT (26.0-36.0) Seconds VBG pH (7.32-7.42) pH Units VBG pCO2 (41-51) mmHg VBG pO2 (25-40) mmHg VBG HCO3 (21-27) mEq/L Sodium (136-145) mEq/L Potassium (3.5-4.5) mEq/L Chloride (98-109) mEq/L Carbon Dioxide (19-29) mEq/L BUN (8-26) mg/dL Creatinine (0.72-1.25) mg/dL Est GFR ( Amer) (> 60) Est GFR (Non-Af Amer) (> 60) BUN/Creatinine Ratio (6-26) Glucose (70-99) mg/dL POC Glucose (58-89) Est Mean Plasma Glucose 88 mg/dl Hemoglobin A1c 4.7 ( - 5.6) % Calculated Osmolality (280-300) Lactic Acid (0.5-2.2) mmol/L Calcium (8.6-10.8) mg/dL Ionized Calcium 1.21 (1.15-1.35) mmol/L Phosphorus (2.3-4.7) mg/dL Magnesium (1.6-2.6) mg/dL Total Bilirubin (0.2-1.2) mg/dL Direct Bilirubin (0.0-0.5) mg/dL Indirect Bilirubin (0.0-1.2) mg/dL AST (5-34) Units/L ALT (0-55) Units/L Alkaline Phosphatase (38-126) Units/L Ammonia (18-72) mcmol/L Troponin I (0-0.03) ng/mL C-Reactive Protein 99 H (Less than 5) mg/L B-Natriuretic Peptide 40 (0-100) pg/mL Serum Total Protein (6.0-8.3) g/dL Albumin (3.5-5.0) g/dL Globulin (2.4-3.5) g/dL Albumin/Globulin Ratio (1.1-2.2) Triglycerides (< 150) mg/dL Cholesterol (< 200) mg/dL LDL Cholesterol, Calc (0-99) mg/dL VLDL Cholesterol, Calc (< 31) mg/dL HDL Cholesterol (40-59) mg/dL Cholesterol/HDL Ratio (0-4.9) TSH 0.522 (0.350-4.840) mcIU/mL Prolactin (3.46-19.40) ng/mL Urine Color (Yellow) Urine Clarity (Clear) Urine pH (5.0-8.0) pH Units Ur Specific [place] (1.010-1.025) Urine Protein (Neg-Trace) mg/dL Urine Glucose (UA) (Normal) mg/dL Urine Ketones (Negative) mg/dL Urine Blood (Negative) Urine Nitrite (Negative) Urine Bilirubin (Negative) Urine Urobilinogen (Normal) mg/dL Ur Leukocyte Esterase (Negative) Stool Occult Blood (Negative) Vancomycin Trough (10-20) mcg/mL Random Vancomycin mcg/mL Blood Type Antibody Screen MTS Gel Crossmatch 01/30/17 01/30/17 01/30/17 Range/Units 04:45 06:20 10:35 WBC (4.3-11.1) K/mcL RBC (4.19-5.50) M/mcL Hgb (12.9-16.9) g/dL Hct (37.5-50.1) % MCV (83.0-100.0) fL MCH (28.0-33.3) pg MCHC (31.6-35.5) g/dL RDW (11.5-14.5) % Plt Count (140-400) K/mcL MPV (9.4-12.4) fL Immature Gran % (0-4) % Seg Neutrophils % % Lymphocytes % % Monocytes % % Eosinophils % % Basophils % % Neutrophils # (1.6-8.9) K/mcL Lymphocytes # (0.6-4.6) K/mcL Monocytes # (0.0-1.3) K/mcL Eosinophils # (0.0-0.6) K/mcL Basophils # (0.0-0.2) K/mcL Immature Plt Fraction (1.1-6.1) % PT (9.4-12.1) Seconds INR APTT (26.0-36.0) Seconds VBG pH 7.40 (7.32-7.42) pH Units VBG pCO2 40 L (41-51) mmHg VBG pO2 83 H (25-40) mmHg VBG HCO3 24.8 (21-27) mEq/L Sodium (136-145) mEq/L Potassium (3.5-4.5) mEq/L Chloride (98-109) mEq/L Carbon Dioxide (19-29) mEq/L BUN (8-26) mg/dL Creatinine (0.72-1.25) mg/dL Est GFR ( Amer) (> 60) Est GFR (Non-Af Amer) (> 60) BUN/Creatinine Ratio (6-26) Glucose (70-99) mg/dL POC Glucose (58-89) Est Mean Plasma Glucose mg/dl Hemoglobin A1c ( - 5.6) % Calculated Osmolality (280-300) Lactic Acid (0.5-2.2) mmol/L Calcium (8.6-10.8) mg/dL Ionized Calcium (1.15-1.35) mmol/L Phosphorus (2.3-4.7) mg/dL Magnesium (1.6-2.6) mg/dL Total Bilirubin (0.2-1.2) mg/dL Direct Bilirubin (0.0-0.5) mg/dL Indirect Bilirubin (0.0-1.2) mg/dL AST (5-34) Units/L ALT (0-55) Units/L Alkaline Phosphatase (38-126) Units/L Ammonia (18-72) mcmol/L Troponin I 0.00 (0-0.03) ng/mL C-Reactive Protein (Less than 5) mg/L B-Natriuretic Peptide (0-100) pg/mL Serum Total Protein (6.0-8.3) g/dL Albumin (3.5-5.0) g/dL Globulin (2.4-3.5) g/dL Albumin/Globulin Ratio (1.1-2.2) Triglycerides (< 150) mg/dL Cholesterol (< 200) mg/dL LDL Cholesterol, Calc (0-99) mg/dL VLDL Cholesterol, Calc (< 31) mg/dL HDL Cholesterol (40-59) mg/dL Cholesterol/HDL Ratio (0-4.9) TSH (0.350-4.840) mcIU/mL Prolactin (3.46-19.40) ng/mL Urine Color Yellow (Yellow) Urine Clarity Clear (Clear) Urine pH 6.0 (5.0-8.0) pH Units Ur Specific [place] 1.027 H (1.010-1.025) Urine Protein Negative (Neg-Trace) mg/dL Urine Glucose (UA) Normal (Normal) mg/dL Urine Ketones Negative (Negative) mg/dL Urine Blood Negative (Negative) Urine Nitrite Negative (Negative) Urine Bilirubin Negative (Negative) Urine Urobilinogen Normal (Normal) mg/dL Ur Leukocyte Esterase Negative (Negative) Stool Occult Blood (Negative) Vancomycin Trough (10-20) mcg/mL Random Vancomycin mcg/mL Blood Type Antibody Screen MTS Gel Crossmatch 01/30/17 01/31/17 01/31/17 Range/Units 16:49 08:13 08:13 WBC 12.6 H (4.3-11.1) K/mcL RBC 2.41 L (4.19-5.50) M/mcL Hgb 7.5 L D (12.9-16.9) g/dL Hct 22.4 L (37.5-50.1) % MCV 92.9 (83.0-100.0) fL MCH 31.1 (28.0-33.3) pg MCHC 33.5 (31.6-35.5) g/dL RDW 16.4 H (11.5-14.5) % Plt Count 114 L (140-400) K/mcL MPV 10.6 (9.4-12.4) fL Immature Gran % 0.6 (0-4) % Seg Neutrophils % 91.2 % Lymphocytes % 4.9 % Monocytes % 3.1 % Eosinophils % 0.1 % Basophils % 0.1 % Neutrophils # 11.5 H (1.6-8.9) K/mcL Lymphocytes # 0.6 (0.6-4.6) K/mcL Monocytes # 0.4 (0.0-1.3) K/mcL Eosinophils # 0.0 (0.0-0.6) K/mcL Basophils # 0.0 (0.0-0.2) K/mcL Immature Plt Fraction (1.1-6.1) % PT (9.4-12.1) Seconds INR APTT (26.0-36.0) Seconds VBG pH (7.32-7.42) pH Units VBG pCO2 (41-51) mmHg VBG pO2 (25-40) mmHg VBG HCO3 (21-27) mEq/L Sodium 134 L (136-145) mEq/L Potassium 4.1 (3.5-4.5) mEq/L Chloride 106 (98-109) mEq/L Carbon Dioxide 22 (19-29) mEq/L BUN 30 H (8-26) mg/dL Creatinine 1.04 (0.72-1.25) mg/dL Est GFR ( Amer) > 60 (> 60) Est GFR (Non-Af Amer) > 60 (> 60) BUN/Creatinine Ratio 29 H (6-26) Glucose 135 H (70-99) mg/dL POC Glucose (58-89) Est Mean Plasma Glucose mg/dl Hemoglobin A1c ( - 5.6) % Calculated Osmolality 286 (280-300) Lactic Acid (0.5-2.2) mmol/L Calcium 7.9 L (8.6-10.8) mg/dL Ionized Calcium (1.15-1.35) mmol/L Phosphorus (2.3-4.7) mg/dL Magnesium (1.6-2.6) mg/dL Total Bilirubin (0.2-1.2) mg/dL Direct Bilirubin (0.0-0.5) mg/dL Indirect Bilirubin (0.0-1.2) mg/dL AST (5-34) Units/L ALT (0-55) Units/L Alkaline Phosphatase (38-126) Units/L Ammonia (18-72) mcmol/L Troponin I 0.00 (0-0.03) ng/mL C-Reactive Protein (Less than 5) mg/L B-Natriuretic Peptide (0-100) pg/mL Serum Total Protein (6.0-8.3) g/dL Albumin (3.5-5.0) g/dL Globulin (2.4-3.5) g/dL Albumin/Globulin Ratio (1.1-2.2) Triglycerides (< 150) mg/dL Cholesterol (< 200) mg/dL LDL Cholesterol, Calc (0-99) mg/dL VLDL Cholesterol, Calc (< 31) mg/dL HDL Cholesterol (40-59) mg/dL Cholesterol/HDL Ratio (0-4.9) TSH (0.350-4.840) mcIU/mL Prolactin (3.46-19.40) ng/mL Urine Color (Yellow) Urine Clarity (Clear) Urine pH (5.0-8.0) pH Units Ur Specific [place] (1.010-1.025) Urine Protein (Neg-Trace) mg/dL Urine Glucose (UA) (Normal) mg/dL Urine Ketones (Negative) mg/dL Urine Blood (Negative) Urine Nitrite (Negative) Urine Bilirubin (Negative) Urine Urobilinogen (Normal) mg/dL Ur Leukocyte Esterase (Negative) Stool Occult Blood (Negative) Vancomycin Trough (10-20) mcg/mL Random Vancomycin mcg/mL Blood Type Antibody Screen MTS Gel Crossmatch 01/31/17 01/31/17 01/31/17 Range/Units 08:13 08:13 11:26 WBC (4.3-11.1) K/mcL RBC (4.19-5.50) M/mcL Hgb (12.9-16.9) g/dL Hct (37.5-50.1) % MCV (83.0-100.0) fL MCH (28.0-33.3) pg MCHC (31.6-35.5) g/dL RDW (11.5-14.5) % Plt Count (140-400) K/mcL MPV (9.4-12.4) fL Immature Gran % (0-4) % Seg Neutrophils % % Lymphocytes % % Monocytes % % Eosinophils % % Basophils % % Neutrophils # (1.6-8.9) K/mcL Lymphocytes # (0.6-4.6) K/mcL Monocytes # (0.0-1.3) K/mcL Eosinophils # (0.0-0.6) K/mcL Basophils # (0.0-0.2) K/mcL Immature Plt Fraction (1.1-6.1) % PT (9.4-12.1) Seconds INR APTT (26.0-36.0) Seconds VBG pH (7.32-7.42) pH Units VBG pCO2 (41-51) mmHg VBG pO2 (25-40) mmHg VBG HCO3 (21-27) mEq/L Sodium (136-145) mEq/L Potassium (3.5-4.5) mEq/L Chloride (98-109) mEq/L Carbon Dioxide (19-29) mEq/L BUN (8-26) mg/dL Creatinine (0.72-1.25) mg/dL Est GFR ( Amer) (> 60) Est GFR (Non-Af Amer) (> 60) BUN/Creatinine Ratio (6-26) Glucose (70-99) mg/dL POC Glucose (58-89) Est Mean Plasma Glucose mg/dl Hemoglobin A1c ( - 5.6) % Calculated Osmolality (280-300) Lactic Acid 2.5 H (0.5-2.2) mmol/L Calcium (8.6-10.8) mg/dL Ionized Calcium (1.15-1.35) mmol/L Phosphorus (2.3-4.7) mg/dL Magnesium (1.6-2.6) mg/dL Total Bilirubin (0.2-1.2) mg/dL Direct Bilirubin (0.0-0.5) mg/dL Indirect Bilirubin (0.0-1.2) mg/dL AST (5-34) Units/L ALT (0-55) Units/L Alkaline Phosphatase (38-126) Units/L Ammonia 30 (18-72) mcmol/L Troponin I (0-0.03) ng/mL C-Reactive Protein (Less than 5) mg/L B-Natriuretic Peptide (0-100) pg/mL Serum Total Protein (6.0-8.3) g/dL Albumin (3.5-5.0) g/dL Globulin (2.4-3.5) g/dL Albumin/Globulin Ratio (1.1-2.2) Triglycerides (< 150) mg/dL Cholesterol (< 200) mg/dL LDL Cholesterol, Calc (0-99) mg/dL VLDL Cholesterol, Calc (< 31) mg/dL HDL Cholesterol (40-59) mg/dL Cholesterol/HDL Ratio (0-4.9) TSH (0.350-4.840) mcIU/mL Prolactin (3.46-19.40) ng/mL Urine Color (Yellow) Urine Clarity (Clear) Urine pH (5.0-8.0) pH Units Ur Specific [place] (1.010-1.025) Urine Protein (Neg-Trace) mg/dL Urine Glucose (UA) (Normal) mg/dL Urine Ketones (Negative) mg/dL Urine Blood (Negative) Urine Nitrite (Negative) Urine Bilirubin (Negative) Urine Urobilinogen (Normal) mg/dL Ur Leukocyte Esterase (Negative) Stool Occult Blood Positive A (Negative) Vancomycin Trough (10-20) mcg/mL Random Vancomycin mcg/mL Blood Type Antibody Screen MTS Gel Crossmatch 01/31/17 01/31/17 01/31/17 Range/Units 11:49 16:11 18:15 WBC (4.3-11.1) K/mcL RBC (4.19-5.50) M/mcL Hgb (12.9-16.9) g/dL Hct (37.5-50.1) % MCV (83.0-100.0) fL MCH (28.0-33.3) pg MCHC (31.6-35.5) g/dL RDW (11.5-14.5) % Plt Count (140-400) K/mcL MPV (9.4-12.4) fL Immature Gran % (0-4) % Seg Neutrophils % % Lymphocytes % % Monocytes % % Eosinophils % % Basophils % % Neutrophils # (1.6-8.9) K/mcL Lymphocytes # (0.6-4.6) K/mcL Monocytes # (0.0-1.3) K/mcL Eosinophils # (0.0-0.6) K/mcL Basophils # (0.0-0.2) K/mcL Immature Plt Fraction (1.1-6.1) % PT (9.4-12.1) Seconds INR APTT (26.0-36.0) Seconds VBG pH (7.32-7.42) pH Units VBG pCO2 (41-51) mmHg VBG pO2 (25-40) mmHg VBG HCO3 (21-27) mEq/L Sodium (136-145) mEq/L Potassium (3.5-4.5) mEq/L Chloride (98-109) mEq/L Carbon Dioxide (19-29) mEq/L BUN (8-26) mg/dL Creatinine (0.72-1.25) mg/dL Est GFR ( Amer) (> 60) Est GFR (Non-Af Amer) (> 60) BUN/Creatinine Ratio (6-26) Glucose (70-99) mg/dL POC Glucose 363 H 147 H (58-89) Est Mean Plasma Glucose mg/dl Hemoglobin A1c ( - 5.6) % Calculated Osmolality (280-300) Lactic Acid (0.5-2.2) mmol/L Calcium (8.6-10.8) mg/dL Ionized Calcium (1.15-1.35) mmol/L Phosphorus (2.3-4.7) mg/dL Magnesium (1.6-2.6) mg/dL Total Bilirubin (0.2-1.2) mg/dL Direct Bilirubin (0.0-0.5) mg/dL Indirect Bilirubin (0.0-1.2) mg/dL AST (5-34) Units/L ALT (0-55) Units/L Alkaline Phosphatase (38-126) Units/L Ammonia (18-72) mcmol/L Troponin I (0-0.03) ng/mL C-Reactive Protein (Less than 5) mg/L B-Natriuretic Peptide (0-100) pg/mL Serum Total Protein (6.0-8.3) g/dL Albumin (3.5-5.0) g/dL Globulin (2.4-3.5) g/dL Albumin/Globulin Ratio (1.1-2.2) Triglycerides (< 150) mg/dL Cholesterol (< 200) mg/dL LDL Cholesterol, Calc (0-99) mg/dL VLDL Cholesterol, Calc (< 31) mg/dL HDL Cholesterol (40-59) mg/dL Cholesterol/HDL Ratio (0-4.9) TSH (0.350-4.840) mcIU/mL Prolactin (3.46-19.40) ng/mL Urine Color (Yellow) Urine Clarity (Clear) Urine pH (5.0-8.0) pH Units Ur Specific [place] (1.010-1.025) Urine Protein (Neg-Trace) mg/dL Urine Glucose (UA) (Normal) mg/dL Urine Ketones (Negative) mg/dL Urine Blood (Negative) Urine Nitrite (Negative) Urine Bilirubin (Negative) Urine Urobilinogen (Normal) mg/dL Ur Leukocyte Esterase (Negative) Stool Occult Blood (Negative) Vancomycin Trough 26.7 H* (10-20) mcg/mL Random Vancomycin mcg/mL Blood Type Antibody Screen MTS Gel Crossmatch 01/31/17 02/01/17 02/01/17 Range/Units 21:51 04:13 04:13 WBC 8.7 (4.3-11.1) K/mcL RBC 2.27 L (4.19-5.50) M/mcL Hgb 7.0 L (12.9-16.9) g/dL Hct 20.9 L (37.5-50.1) % MCV 92.1 (83.0-100.0) fL MCH 30.8 (28.0-33.3) pg MCHC 33.5 (31.6-35.5) g/dL RDW 16.7 H (11.5-14.5) % Plt Count 100 L (140-400) K/mcL MPV 10.3 (9.4-12.4) fL Immature Gran % 0.7 (0-4) % Seg Neutrophils % 85.3 % Lymphocytes % 5.8 % Monocytes % 8.1 % Eosinophils % 0.1 % Basophils % 0.0 % Neutrophils # 7.4 (1.6-8.9) K/mcL Lymphocytes # 0.5 L (0.6-4.6) K/mcL Monocytes # 0.7 (0.0-1.3) K/mcL Eosinophils # 0.0 (0.0-0.6) K/mcL Basophils # 0.0 (0.0-0.2) K/mcL Immature Plt Fraction 2.4 (1.1-6.1) % PT (9.4-12.1) Seconds INR APTT (26.0-36.0) Seconds VBG pH (7.32-7.42) pH Units VBG pCO2 (41-51) mmHg VBG pO2 (25-40) mmHg VBG HCO3 (21-27) mEq/L Sodium 133 L (136-145) mEq/L Potassium 4.0 (3.5-4.5) mEq/L Chloride 106 (98-109) mEq/L Carbon Dioxide 23 (19-29) mEq/L BUN 28 H (8-26) mg/dL Creatinine 1.01 (0.72-1.25) mg/dL Est GFR ( Amer) > 60 (> 60) Est GFR (Non-Af Amer) > 60 (> 60) BUN/Creatinine Ratio 28 H (6-26) Glucose 134 H (70-99) mg/dL POC Glucose 262 H (58-89) Est Mean Plasma Glucose mg/dl Hemoglobin A1c ( - 5.6) % Calculated Osmolality 283 (280-300) Lactic Acid (0.5-2.2) mmol/L Calcium 7.8 L (8.6-10.8) mg/dL Ionized Calcium (1.15-1.35) mmol/L Phosphorus (2.3-4.7) mg/dL Magnesium 1.5 L (1.6-2.6) mg/dL Total Bilirubin (0.2-1.2) mg/dL Direct Bilirubin (0.0-0.5) mg/dL Indirect Bilirubin (0.0-1.2) mg/dL AST (5-34) Units/L ALT (0-55) Units/L Alkaline Phosphatase (38-126) Units/L Ammonia (18-72) mcmol/L Troponin I (0-0.03) ng/mL C-Reactive Protein (Less than 5) mg/L B-Natriuretic Peptide (0-100) pg/mL Serum Total Protein (6.0-8.3) g/dL Albumin (3.5-5.0) g/dL Globulin (2.4-3.5) g/dL Albumin/Globulin Ratio (1.1-2.2) Triglycerides (< 150) mg/dL Cholesterol (< 200) mg/dL LDL Cholesterol, Calc (0-99) mg/dL VLDL Cholesterol, Calc (< 31) mg/dL HDL Cholesterol (40-59) mg/dL Cholesterol/HDL Ratio (0-4.9) TSH (0.350-4.840) mcIU/mL Prolactin (3.46-19.40) ng/mL Urine Color (Yellow) Urine Clarity (Clear) Urine pH (5.0-8.0) pH Units Ur Specific [place] (1.010-1.025) Urine Protein (Neg-Trace) mg/dL Urine Glucose (UA) (Normal) mg/dL Urine Ketones (Negative) mg/dL Urine Blood (Negative) Urine Nitrite (Negative) Urine Bilirubin (Negative) Urine Urobilinogen (Normal) mg/dL Ur Leukocyte Esterase (Negative) Stool Occult Blood (Negative) Vancomycin Trough (10-20) mcg/mL Random Vancomycin mcg/mL Blood Type Antibody Screen MTS Gel Crossmatch 02/01/17 02/01/17 02/01/17 Range/Units 04:13 07:22 08:50 WBC (4.3-11.1) K/mcL RBC (4.19-5.50) M/mcL Hgb (12.9-16.9) g/dL Hct (37.5-50.1) % MCV (83.0-100.0) fL MCH (28.0-33.3) pg MCHC (31.6-35.5) g/dL RDW (11.5-14.5) % Plt Count (140-400) K/mcL MPV (9.4-12.4) fL Immature Gran % (0-4) % Seg Neutrophils % % Lymphocytes % % Monocytes % % Eosinophils % % Basophils % % Neutrophils # (1.6-8.9) K/mcL Lymphocytes # (0.6-4.6) K/mcL Monocytes # (0.0-1.3) K/mcL Eosinophils # (0.0-0.6) K/mcL Basophils # (0.0-0.2) K/mcL Immature Plt Fraction (1.1-6.1) % PT (9.4-12.1) Seconds INR APTT (26.0-36.0) Seconds VBG pH (7.32-7.42) pH Units VBG pCO2 (41-51) mmHg VBG pO2 (25-40) mmHg VBG HCO3 (21-27) mEq/L Sodium (136-145) mEq/L Potassium (3.5-4.5) mEq/L Chloride (98-109) mEq/L Carbon Dioxide (19-29) mEq/L BUN (8-26) mg/dL Creatinine (0.72-1.25) mg/dL Est GFR ( Amer) (> 60) Est GFR (Non-Af Amer) (> 60) BUN/Creatinine Ratio (6-26) Glucose (70-99) mg/dL POC Glucose 172 H (58-89) Est Mean Plasma Glucose mg/dl Hemoglobin A1c ( - 5.6) % Calculated Osmolality (280-300) Lactic Acid (0.5-2.2) mmol/L Calcium (8.6-10.8) mg/dL Ionized Calcium (1.15-1.35) mmol/L Phosphorus (2.3-4.7) mg/dL Magnesium (1.6-2.6) mg/dL Total Bilirubin (0.2-1.2) mg/dL Direct Bilirubin (0.0-0.5) mg/dL Indirect Bilirubin (0.0-1.2) mg/dL AST (5-34) Units/L ALT (0-55) Units/L Alkaline Phosphatase (38-126) Units/L Ammonia (18-72) mcmol/L Troponin I (0-0.03) ng/mL C-Reactive Protein (Less than 5) mg/L B-Natriuretic Peptide (0-100) pg/mL Serum Total Protein (6.0-8.3) g/dL Albumin (3.5-5.0) g/dL Globulin (2.4-3.5) g/dL Albumin/Globulin Ratio (1.1-2.2) Triglycerides (< 150) mg/dL Cholesterol (< 200) mg/dL LDL Cholesterol, Calc (0-99) mg/dL VLDL Cholesterol, Calc (< 31) mg/dL HDL Cholesterol (40-59) mg/dL Cholesterol/HDL Ratio (0-4.9) TSH (0.350-4.840) mcIU/mL Prolactin (3.46-19.40) ng/mL Urine Color (Yellow) Urine Clarity (Clear) Urine pH (5.0-8.0) pH Units Ur Specific [place] (1.010-1.025) Urine Protein (Neg-Trace) mg/dL Urine Glucose (UA) (Normal) mg/dL Urine Ketones (Negative) mg/dL Urine Blood (Negative) Urine Nitrite (Negative) Urine Bilirubin (Negative) Urine Urobilinogen (Normal) mg/dL Ur Leukocyte Esterase (Negative) Stool Occult Blood (Negative) Vancomycin Trough (10-20) mcg/mL Random Vancomycin 18.0 mcg/mL Blood Type A POSITIVE Antibody Screen NEGATIVE MTS Gel Crossmatch See Detail 02/01/17 02/01/17 02/01/17 Range/Units 10:38 11:09 16:02 WBC (4.3-11.1) K/mcL RBC (4.19-5.50) M/mcL Hgb (12.9-16.9) g/dL Hct (37.5-50.1) % MCV (83.0-100.0) fL MCH (28.0-33.3) pg MCHC (31.6-35.5) g/dL RDW (11.5-14.5) % Plt Count (140-400) K/mcL MPV (9.4-12.4) fL Immature Gran % (0-4) % Seg Neutrophils % % Lymphocytes % % Monocytes % % Eosinophils % % Basophils % % Neutrophils # (1.6-8.9) K/mcL Lymphocytes # (0.6-4.6) K/mcL Monocytes # (0.0-1.3) K/mcL Eosinophils # (0.0-0.6) K/mcL Basophils # (0.0-0.2) K/mcL Immature Plt Fraction (1.1-6.1) % PT (9.4-12.1) Seconds INR APTT (26.0-36.0) Seconds VBG pH (7.32-7.42) pH Units VBG pCO2 (41-51) mmHg VBG pO2 (25-40) mmHg VBG HCO3 (21-27) mEq/L Sodium (136-145) mEq/L Potassium (3.5-4.5) mEq/L Chloride (98-109) mEq/L Carbon Dioxide (19-29) mEq/L BUN (8-26) mg/dL Creatinine (0.72-1.25) mg/dL Est GFR ( Amer) (> 60) Est GFR (Non-Af Amer) (> 60) BUN/Creatinine Ratio (6-26) Glucose (70-99) mg/dL POC Glucose 273 H 294 H (58-89) Est Mean Plasma Glucose mg/dl Hemoglobin A1c ( - 5.6) % Calculated Osmolality (280-300) Lactic Acid 3.3 H (0.5-2.2) mmol/L Calcium (8.6-10.8) mg/dL Ionized Calcium (1.15-1.35) mmol/L Phosphorus (2.3-4.7) mg/dL Magnesium (1.6-2.6) mg/dL Total Bilirubin (0.2-1.2) mg/dL Direct Bilirubin (0.0-0.5) mg/dL Indirect Bilirubin (0.0-1.2) mg/dL AST (5-34) Units/L ALT (0-55) Units/L Alkaline Phosphatase (38-126) Units/L Ammonia (18-72) mcmol/L Troponin I (0-0.03) ng/mL C-Reactive Protein (Less than 5) mg/L B-Natriuretic Peptide (0-100) pg/mL Serum Total Protein (6.0-8.3) g/dL Albumin (3.5-5.0) g/dL Globulin (2.4-3.5) g/dL Albumin/Globulin Ratio (1.1-2.2) Triglycerides (< 150) mg/dL Cholesterol (< 200) mg/dL LDL Cholesterol, Calc (0-99) mg/dL VLDL Cholesterol, Calc (< 31) mg/dL HDL Cholesterol (40-59) mg/dL Cholesterol/HDL Ratio (0-4.9) TSH (0.350-4.840) mcIU/mL Prolactin (3.46-19.40) ng/mL Urine Color (Yellow) Urine Clarity (Clear) Urine pH (5.0-8.0) pH Units Ur Specific [place] (1.010-1.025) Urine Protein (Neg-Trace) mg/dL Urine Glucose (UA) (Normal) mg/dL Urine Ketones (Negative) mg/dL Urine Blood (Negative) Urine Nitrite (Negative) Urine Bilirubin (Negative) Urine Urobilinogen (Normal) mg/dL Ur Leukocyte Esterase (Negative) Stool Occult Blood (Negative) Vancomycin Trough (10-20) mcg/mL Random Vancomycin mcg/mL Blood Type Antibody Screen MTS Gel Crossmatch 02/01/17 02/02/17 02/02/17 Range/Units 20:26 04:45 04:45 WBC 8.8 (4.3-11.1) K/mcL RBC 3.07 L (4.19-5.50) M/mcL Hgb 9.3 L D (12.9-16.9) g/dL Hct 27.5 L (37.5-50.1) % MCV 89.6 (83.0-100.0) fL MCH 30.3 (28.0-33.3) pg MCHC 33.8 (31.6-35.5) g/dL RDW 17.2 H (11.5-14.5) % Plt Count 98 L (140-400) K/mcL MPV 10.2 (9.4-12.4) fL Immature Gran % 0.8 (0-4) % Seg Neutrophils % 86.6 % Lymphocytes % 5.5 % Monocytes % 7.0 % Eosinophils % 0.0 % Basophils % 0.1 % Neutrophils # 7.6 (1.6-8.9) K/mcL Lymphocytes # 0.5 L (0.6-4.6) K/mcL Monocytes # 0.6 (0.0-1.3) K/mcL Eosinophils # 0.0 (0.0-0.6) K/mcL Basophils # 0.0 (0.0-0.2) K/mcL Immature Plt Fraction 2.5 (1.1-6.1) % PT (9.4-12.1) Seconds INR APTT (26.0-36.0) Seconds VBG pH (7.32-7.42) pH Units VBG pCO2 (41-51) mmHg VBG pO2 (25-40) mmHg VBG HCO3 (21-27) mEq/L Sodium 131 L (136-145) mEq/L Potassium 4.3 (3.5-4.5) mEq/L Chloride 104 (98-109) mEq/L Carbon Dioxide 23 (19-29) mEq/L BUN 27 H (8-26) mg/dL Creatinine 0.95 (0.72-1.25) mg/dL Est GFR ( Amer) > 60 (> 60) Est GFR (Non-Af Amer) > 60 (> 60) BUN/Creatinine Ratio 28 H (6-26) Glucose 255 H (70-99) mg/dL POC Glucose 280 H (58-89) Est Mean Plasma Glucose mg/dl Hemoglobin A1c ( - 5.6) % Calculated Osmolality 286 (280-300) Lactic Acid (0.5-2.2) mmol/L Calcium 7.8 L (8.6-10.8) mg/dL Ionized Calcium (1.15-1.35) mmol/L Phosphorus 2.2 L (2.3-4.7) mg/dL Magnesium 1.8 (1.6-2.6) mg/dL Total Bilirubin (0.2-1.2) mg/dL Direct Bilirubin (0.0-0.5) mg/dL Indirect Bilirubin (0.0-1.2) mg/dL AST (5-34) Units/L ALT (0-55) Units/L Alkaline Phosphatase (38-126) Units/L Ammonia (18-72) mcmol/L Troponin I (0-0.03) ng/mL C-Reactive Protein (Less than 5) mg/L B-Natriuretic Peptide (0-100) pg/mL Serum Total Protein (6.0-8.3) g/dL Albumin (3.5-5.0) g/dL Globulin (2.4-3.5) g/dL Albumin/Globulin Ratio (1.1-2.2) Triglycerides (< 150) mg/dL Cholesterol (< 200) mg/dL LDL Cholesterol, Calc (0-99) mg/dL VLDL Cholesterol, Calc (< 31) mg/dL HDL Cholesterol (40-59) mg/dL Cholesterol/HDL Ratio (0-4.9) TSH (0.350-4.840) mcIU/mL Prolactin (3.46-19.40) ng/mL Urine Color (Yellow) Urine Clarity (Clear) Urine pH (5.0-8.0) pH Units Ur Specific [place] (1.010-1.025) Urine Protein (Neg-Trace) mg/dL Urine Glucose (UA) (Normal) mg/dL Urine Ketones (Negative) mg/dL Urine Blood (Negative) Urine Nitrite (Negative) Urine Bilirubin (Negative) Urine Urobilinogen (Normal) mg/dL Ur Leukocyte Esterase (Negative) Stool Occult Blood (Negative) Vancomycin Trough (10-20) mcg/mL Random Vancomycin mcg/mL Blood Type Antibody Screen MTS Gel Crossmatch 02/02/17 02/02/17 02/02/17 Range/Units 07:29 11:28 15:53 WBC (4.3-11.1) K/mcL RBC (4.19-5.50) M/mcL Hgb (12.9-16.9) g/dL Hct (37.5-50.1) % MCV (83.0-100.0) fL MCH (28.0-33.3) pg MCHC (31.6-35.5) g/dL RDW (11.5-14.5) % Plt Count (140-400) K/mcL MPV (9.4-12.4) fL Immature Gran % (0-4) % Seg Neutrophils % % Lymphocytes % % Monocytes % % Eosinophils % % Basophils % % Neutrophils # (1.6-8.9) K/mcL Lymphocytes # (0.6-4.6) K/mcL Monocytes # (0.0-1.3) K/mcL Eosinophils # (0.0-0.6) K/mcL Basophils # (0.0-0.2) K/mcL Immature Plt Fraction (1.1-6.1) % PT (9.4-12.1) Seconds INR APTT (26.0-36.0) Seconds VBG pH (7.32-7.42) pH Units VBG pCO2 (41-51) mmHg VBG pO2 (25-40) mmHg VBG HCO3 (21-27) mEq/L Sodium (136-145) mEq/L Potassium (3.5-4.5) mEq/L Chloride (98-109) mEq/L Carbon Dioxide (19-29) mEq/L BUN (8-26) mg/dL Creatinine (0.72-1.25) mg/dL Est GFR ( Amer) (> 60) Est GFR (Non-Af Amer) (> 60) BUN/Creatinine Ratio (6-26) Glucose (70-99) mg/dL POC Glucose 313 H 264 H 216 H (58-89) Est Mean Plasma Glucose mg/dl Hemoglobin A1c ( - 5.6) % Calculated Osmolality (280-300) Lactic Acid (0.5-2.2) mmol/L Calcium (8.6-10.8) mg/dL Ionized Calcium (1.15-1.35) mmol/L Phosphorus (2.3-4.7) mg/dL Magnesium (1.6-2.6) mg/dL Total Bilirubin (0.2-1.2) mg/dL Direct Bilirubin (0.0-0.5) mg/dL Indirect Bilirubin (0.0-1.2) mg/dL AST (5-34) Units/L ALT (0-55) Units/L Alkaline Phosphatase (38-126) Units/L Ammonia (18-72) mcmol/L Troponin I (0-0.03) ng/mL C-Reactive Protein (Less than 5) mg/L B-Natriuretic Peptide (0-100) pg/mL Serum Total Protein (6.0-8.3) g/dL Albumin (3.5-5.0) g/dL Globulin (2.4-3.5) g/dL Albumin/Globulin Ratio (1.1-2.2) Triglycerides (< 150) mg/dL Cholesterol (< 200) mg/dL LDL Cholesterol, Calc (0-99) mg/dL VLDL Cholesterol, Calc (< 31) mg/dL HDL Cholesterol (40-59) mg/dL Cholesterol/HDL Ratio (0-4.9) TSH (0.350-4.840) mcIU/mL Prolactin (3.46-19.40) ng/mL Urine Color (Yellow) Urine Clarity (Clear) Urine pH (5.0-8.0) pH Units Ur Specific [place] (1.010-1.025) Urine Protein (Neg-Trace) mg/dL Urine Glucose (UA) (Normal) mg/dL Urine Ketones (Negative) mg/dL Urine Blood (Negative) Urine Nitrite (Negative) Urine Bilirubin (Negative) Urine Urobilinogen (Normal) mg/dL Ur Leukocyte Esterase (Negative) Stool Occult Blood (Negative) Vancomycin Trough (10-20) mcg/mL Random Vancomycin mcg/mL Blood Type Antibody Screen MTS Gel Crossmatch 02/02/17 02/03/17 02/03/17 Range/Units 20:32 04:27 04:27 WBC 9.3 (4.3-11.1) K/mcL RBC 2.98 L (4.19-5.50) M/mcL Hgb 9.2 L (12.9-16.9) g/dL Hct 27.1 L (37.5-50.1) % MCV 90.9 (83.0-100.0) fL MCH 30.9 (28.0-33.3) pg MCHC 33.9 (31.6-35.5) g/dL RDW 17.2 H (11.5-14.5) % Plt Count 103 L (140-400) K/mcL MPV 10.6 (9.4-12.4) fL Immature Gran % 1.1 (0-4) % Seg Neutrophils % 79.4 % Lymphocytes % 8.3 % Monocytes % 10.9 % Eosinophils % 0.2 % Basophils % 0.1 % Neutrophils # 7.4 (1.6-8.9) K/mcL Lymphocytes # 0.8 (0.6-4.6) K/mcL Monocytes # 1.0 (0.0-1.3) K/mcL Eosinophils # 0.0 (0.0-0.6) K/mcL Basophils # 0.0 (0.0-0.2) K/mcL Immature Plt Fraction (1.1-6.1) % PT (9.4-12.1) Seconds INR APTT (26.0-36.0) Seconds VBG pH (7.32-7.42) pH Units VBG pCO2 (41-51) mmHg VBG pO2 (25-40) mmHg VBG HCO3 (21-27) mEq/L Sodium 132 L (136-145) mEq/L Potassium 4.3 (3.5-4.5) mEq/L Chloride 105 (98-109) mEq/L Carbon Dioxide 24 (19-29) mEq/L BUN 24 (8-26) mg/dL Creatinine 0.88 (0.72-1.25) mg/dL Est GFR ( Amer) > 60 (> 60) Est GFR (Non-Af Amer) > 60 (> 60) BUN/Creatinine Ratio 27 H (6-26) Glucose 195 H (70-99) mg/dL POC Glucose 314 H (58-89) Est Mean Plasma Glucose mg/dl Hemoglobin A1c ( - 5.6) % Calculated Osmolality 283 (280-300) Lactic Acid (0.5-2.2) mmol/L Calcium 7.9 L (8.6-10.8) mg/dL Ionized Calcium (1.15-1.35) mmol/L Phosphorus 1.7 L (2.3-4.7) mg/dL Magnesium 1.9 (1.6-2.6) mg/dL Total Bilirubin (0.2-1.2) mg/dL Direct Bilirubin (0.0-0.5) mg/dL Indirect Bilirubin (0.0-1.2) mg/dL AST (5-34) Units/L ALT (0-55) Units/L Alkaline Phosphatase (38-126) Units/L Ammonia (18-72) mcmol/L Troponin I (0-0.03) ng/mL C-Reactive Protein (Less than 5) mg/L B-Natriuretic Peptide (0-100) pg/mL Serum Total Protein (6.0-8.3) g/dL Albumin (3.5-5.0) g/dL Globulin (2.4-3.5) g/dL Albumin/Globulin Ratio (1.1-2.2) Triglycerides (< 150) mg/dL Cholesterol (< 200) mg/dL LDL Cholesterol, Calc (0-99) mg/dL VLDL Cholesterol, Calc (< 31) mg/dL HDL Cholesterol (40-59) mg/dL Cholesterol/HDL Ratio (0-4.9) TSH (0.350-4.840) mcIU/mL Prolactin (3.46-19.40) ng/mL Urine Color (Yellow) Urine Clarity (Clear) Urine pH (5.0-8.0) pH Units Ur Specific [place] (1.010-1.025) Urine Protein (Neg-Trace) mg/dL Urine Glucose (UA) (Normal) mg/dL Urine Ketones (Negative) mg/dL Urine Blood (Negative) Urine Nitrite (Negative) Urine Bilirubin (Negative) Urine Urobilinogen (Normal) mg/dL Ur Leukocyte Esterase (Negative) Stool Occult Blood (Negative) Vancomycin Trough (10-20) mcg/mL Random Vancomycin mcg/mL Blood Type Antibody Screen MTS Gel Crossmatch 02/03/17 02/03/17 02/03/17 Range/Units 04:27 07:13 11:13 WBC (4.3-11.1) K/mcL RBC (4.19-5.50) M/mcL Hgb (12.9-16.9) g/dL Hct (37.5-50.1) % MCV (83.0-100.0) fL MCH (28.0-33.3) pg MCHC (31.6-35.5) g/dL RDW (11.5-14.5) % Plt Count (140-400) K/mcL MPV (9.4-12.4) fL Immature Gran % (0-4) % Seg Neutrophils % % Lymphocytes % % Monocytes % % Eosinophils % % Basophils % % Neutrophils # (1.6-8.9) K/mcL Lymphocytes # (0.6-4.6) K/mcL Monocytes # (0.0-1.3) K/mcL Eosinophils # (0.0-0.6) K/mcL Basophils # (0.0-0.2) K/mcL Immature Plt Fraction (1.1-6.1) % PT (9.4-12.1) Seconds INR APTT (26.0-36.0) Seconds VBG pH (7.32-7.42) pH Units VBG pCO2 (41-51) mmHg VBG pO2 (25-40) mmHg VBG HCO3 (21-27) mEq/L Sodium (136-145) mEq/L Potassium (3.5-4.5) mEq/L Chloride (98-109) mEq/L Carbon Dioxide (19-29) mEq/L BUN (8-26) mg/dL Creatinine (0.72-1.25) mg/dL Est GFR ( Amer) (> 60) Est GFR (Non-Af Amer) (> 60) BUN/Creatinine Ratio (6-26) Glucose (70-99) mg/dL POC Glucose 135 H 198 H (58-89) Est Mean Plasma Glucose mg/dl Hemoglobin A1c ( - 5.6) % Calculated Osmolality (280-300) Lactic Acid 2.3 H (0.5-2.2) mmol/L Calcium (8.6-10.8) mg/dL Ionized Calcium (1.15-1.35) mmol/L Phosphorus (2.3-4.7) mg/dL Magnesium (1.6-2.6) mg/dL Total Bilirubin (0.2-1.2) mg/dL Direct Bilirubin (0.0-0.5) mg/dL Indirect Bilirubin (0.0-1.2) mg/dL AST (5-34) Units/L ALT (0-55) Units/L Alkaline Phosphatase (38-126) Units/L Ammonia (18-72) mcmol/L Troponin I (0-0.03) ng/mL C-Reactive Protein (Less than 5) mg/L B-Natriuretic Peptide (0-100) pg/mL Serum Total Protein (6.0-8.3) g/dL Albumin (3.5-5.0) g/dL Globulin (2.4-3.5) g/dL Albumin/Globulin Ratio (1.1-2.2) Triglycerides (< 150) mg/dL Cholesterol (< 200) mg/dL LDL Cholesterol, Calc (0-99) mg/dL VLDL Cholesterol, Calc (< 31) mg/dL HDL Cholesterol (40-59) mg/dL Cholesterol/HDL Ratio (0-4.9) TSH (0.350-4.840) mcIU/mL Prolactin (3.46-19.40) ng/mL Urine Color (Yellow) Urine Clarity (Clear) Urine pH (5.0-8.0) pH Units Ur Specific [place] (1.010-1.025) Urine Protein (Neg-Trace) mg/dL Urine Glucose (UA) (Normal) mg/dL Urine Ketones (Negative) mg/dL Urine Blood (Negative) Urine Nitrite (Negative) Urine Bilirubin (Negative) Urine Urobilinogen (Normal) mg/dL Ur Leukocyte Esterase (Negative) Stool Occult Blood (Negative) Vancomycin Trough (10-20) mcg/mL Random Vancomycin mcg/mL Blood Type Antibody Screen MTS Gel Crossmatch Assessments/Treatments 12 lead ECG assessment Start: 01/29/17 20: 31 Freq: Status: Complete Document 01/29/17 20:34 NNN (Rec: 01/29/17 20:46 NNN [id number]) EKG Time EKG Completed 20:36 EKG performed by Mau SHER/Ky SHER EKG shown to and signed by Dr. Bosch Apply anti-embolic stockings (graduated) Start: 01/30/17 03: 47 Freq: .NOW Status: Discharge Document 01/31/17 18:36 KMS (Rec: 01/31/17 18:36 KMS [id number]) Application of anti-embolic stockings Mechanical Prophylaxis Yes Date First Applied 01/31/17 Time First Applied 18:00 Documentation of Mechanical Device Graduated compression elastic hosiery Mechanical Device Location Bilateral Lower Extremities Bed rest Start: 01/30/17 03: 37 Freq: .CONT Status: Complete Document 01/31/17 08:00 KMS (Rec: 01/31/17 11:[address] [facility] [id number]) Document 02/01/17 08:00 KMS (Rec: 02/01/17 11:[address] [facility] [id number]) Bed rest w/bathroom privileges Start: 01/30/17 03: 37 Freq: .PRN Status: Complete Document 01/31/17 08:00 KMS (Rec: 01/31/17 11:[address] [facility] [id number]) Document 02/01/17 08:00 KMS (Rec: 02/01/17 11:[address] [facility] [id number]) Cardiac Monitoring Med/Surg Start: 01/30/17 03: 37 Freq: .CONT Status: Discharge Document 01/30/17 02:57 ALS (Rec: 01/30/17 07:54 ALS [id number]) Cardiac Monitoring Monitor Number hardwire Strip placed in Chart Yes Alarms/Limits HR Alarm 120/40 Heart Rate 71 EKG Method Telemetry Rhythm Sinus Rhythm WA Interval 0.19 QRS Interval 0.04 QT Interval 0.40 Cardiac monitoring Start: 01/29/17 20: 31 Freq: Status: Complete Document 01/29/17 20:34 NNN (Rec: 01/29/17 20:46 NNN [id number]) Cardiac Monitoring Heart Rate 88 Monitoring Method Telemetry Rhythm Sinus Rhythm Monitor Number hardwire 6 Strip placed in Chart No Monitor History Reviewed Yes Memory Cleared Yes Collect Specimen Start: 01/29/17 20: 31 Freq: Status: Complete Document 01/29/17 20:48 NNN (Rec: 01/29/17 20:48 NNN [id number]) Collect Specimen Left Nasal culture/flu swab collected as Yes ordered Specimen(s) labled in presence of Yes patient Specimen sent to lab via Tube system Critical Care Flow Sheet Start: 01/30/17 09: 39 Freq: Q2H Status: Discharge Document 01/30/17 09:10 [id number] (Rec: 01/30/17 10:16 [id number]) Vital Signs (Critical Care) Temperature (97.6 F-99.6 F) 97.6 F Temperature Source Axillary Pulse Rate 73 Respiratory Rate 18 Pulse Oximetry (95-100) 97 Oxygen Delivery Nasal Cannula Blood Pressure 116/77 Source Automatic Cuff Rounding Turn Q 2HR Yes Patient Position Back Document 01/30/17 09:43 [facility] (Rec: 01/30/17 10:23 [facility] [id number]) Rounding Hourly Rounding Checked for Patient Positioning Patient Personal Items Placed Within Reach Checked Patient Pain Level Hourly Rounding Completed Yes Patient Resting With Eyes Closed Bedrest Yes Turn Q 2HR Yes Patient Position Back Positioning Aides Pillows Specialty Bed In Use Yes Equipment in Use Specialty Bed Safety Call Light Within Reach Bed Position Low Fall Precautions Phone Within Reach Bed Brake On Side Rails Up X3 [place] Coma Scale Eye Opening To Voice Motor Obeys Commands Verbal Confused Coma Scale Total 13 Document 01/30/17 11:39 [facility] (Rec: 01/30/17 11:48 [facility] [id number]) Pain Assessment Pain Present Reports No Pain Rounding Hourly Rounding Checked for Patient Positioning Patient Personal Items Placed Within Reach Checked Patient Pain Level Hourly Rounding Completed Yes Patient Awake Bedrest Yes Turn Q 2HR No Patient Position Sitting up in Bed Positioning Aides Pillows Specialty Bed In Use Yes Equipment in Use Specialty Bed Safety Call Light Within Reach Bed Position Low Fall Precautions Phone Within Reach Bed Brake On Side Rails Up X3 [place] Coma Scale Eye Opening Spontaneous Motor Obeys Commands Verbal Oriented Coma Scale Total 15 Bilateral Pupil Reaction Sluggish Pupil Size (mm) 2 Pupil [place] Equal Document 01/30/17 13:14 [facility] (Rec: 01/30/17 13:15 [facility] [id number]) Vital Signs (Critical Care) Temperature (97.6 F-99.6 F) 97.8 F Temperature Source Oral Pulse Rate 87 Respiratory Rate 12 Pulse Oximetry (95-100) 92 L Oxygen Delivery Room Air Blood Pressure 91/64 Blood Pressure Mean (mm Hg) 76 Source Automatic Cuff Neuro Status *Recalled from last Alert documented assessment MEWS Score 1 Rounding Hourly Rounding Checked for Patient Positioning Patient Personal Items Placed Within Reach Hourly Rounding Completed Yes Patient Awake Bedrest Yes Turn Q 2HR No Patient Position Sitting up in Bed Positioning Aides Pillows Specialty Bed In Use Yes Equipment in Use Specialty Bed Safety Call Light Within Reach Bed Position Low Fall Precautions Phone Within Reach Bed Brake On Side Rails Up X3 Document 01/30/17 14:32 [facility] (Rec: 01/30/17 14:32 [facility] [id number]) Rounding Hourly Rounding Checked for Patient Positioning Patient Personal Items Placed Within Reach Checked Patient Pain Level Hourly Rounding Completed Yes Patient Awake Bedrest Yes Turn Q 2HR No Patient Position Sitting up in Bed Positioning Aides Pillows Specialty Bed In Use Yes Equipment in Use Specialty Bed Safety Call Light Within Reach Bed Position Low Fall Precautions Phone Within Reach Bed Brake On Side Rails Up X3 Document 01/30/17 17:11 [facility] (Rec: 01/30/17 17:17 [facility] [id number]) Vital Signs (Critical Care) Temperature (97.6 F-99.6 F) 98.1 F Temperature Source Oral Pulse Rate 85 Rhythm Sinus Rhythm Right Radial 1+ Left Radial 1+ Right Dorsalis Pedis 1+ Weak Left Dorsalis Pedis 1+ Weak Respiratory Rate 12 Pulse Oximetry (95-100) 95 Oxygen Delivery Room Air Blood Pressure 125/63 Blood Pressure Mean (mm Hg) 90 Source Automatic Cuff Neuro Status *Recalled from last Alert documented assessment MEWS Score 0 Rounding Hourly Rounding Checked for Patient Positioning Patient Personal Items Placed Within Reach Checked Patient Pain Level Hourly Rounding Completed Yes Patient Awake Bedrest Yes Turn Q 2HR No Patient Position Sitting up in Bed Positioning Aides Pillows Specialty Bed In Use Yes Equipment in Use Specialty Bed Safety Call Light Within Reach Bed Position Low Fall Precautions Phone Within Reach Bed Brake On Side Rails Up X3 [place] Coma Scale Eye Opening Spontaneous Motor Obeys Commands Verbal Oriented Coma Scale Total 15 Bilateral Pupil Reaction Reactive Pupil Size (mm) 2 Pupil [place] Equal Document 01/30/17 19:30 SAG (Rec: 01/30/17 20:04 SAG [id number]) Pain Assessment Pain Present Reports Pain Lower Back Pain Intensity 7 Description Ache Scale Used Numeric (1 - 10) Pain Intervention Medication Rounding Hourly Rounding Checked for Patient Positioning Patient Personal Items Placed Within Reach Checked Patient Pain Level Hourly Rounding Completed Yes Patient Awake Bedrest Yes Turn Q 2HR No Patient Position Back Positioning Aides Pillows Specialty Bed In Use Yes Equipment in Use Specialty Bed Safety Call Light Within Reach Bed Position Low Bed Exit Alarm Bed Brake On Side Rails Up X3 [place] Coma Scale Eye Opening Spontaneous Motor Obeys Commands Verbal Oriented Coma Scale Total 15 Document 01/30/17 19:39 CJB (Rec: 01/30/17 19:43 B [id number]) Vital Signs (Critical Care) Temperature (97.6 F-99.6 F) 97.2 F L Temperature Source Axillary Pulse Rate 85 Respiratory Rate 15 Pulse Oximetry (95-100) 94 L Oxygen Delivery Room Air Blood Pressure 129/73 Source Automatic Cuff Neuro Status *Recalled from last Alert documented assessment MEWS Score 1 Rounding Hourly Rounding Patient Personal Items Placed Within Reach Hourly Rounding Completed Yes Patient Awake Bedrest Yes Turn Q 2HR No Patient Position Back Positioning Aides Pillows Specialty Bed In Use No Safety Call Light Within Reach Bed Position Low Fall Precautions Phone Within Reach Bed Brake On Side Rails Up X3 Document 01/30/17 21:10 SAG (Rec: 01/30/17 22:32 SAG [id number]) Pain Assessment Pain Present Reports Pain Lower Back Pain Intensity 5 Description Ache Scale Used Numeric (1 - 10) Pain Intervention Distraction Reduced Environmental Stimuli Darkened Room Rounding Hourly Rounding Checked for Patient Positioning Patient Personal Items Placed Within Reach Checked Patient Pain Level Hourly Rounding Completed Yes Patient Awake Bedrest Yes Turn Q 2HR No Patient Position Sitting up in Bed Positioning Aides Pillows Specialty Bed In Use Yes Equipment in Use Specialty Bed Safety Call Light Within Reach Bed Position Low Fall Precautions Phone Within Reach Bed Brake On Side Rails Up X3 [place] Coma Scale Eye Opening Spontaneous Motor Obeys Commands Verbal Oriented Coma Scale Total 15 Bilateral Pupil Reaction Reactive Pupil Size (mm) 2 Pupil [place] Equal Document 01/30/17 22:35 CJB (Rec: 01/30/17 22:36 B [id number]) Rounding Hourly Rounding Patient Personal Items Placed Within Reach Hourly Rounding Completed Yes Patient Awake Bedrest Yes Turn Q 2HR No Patient Position Back Positioning Aides Pillows Specialty Bed In Use Yes Equipment in Use Specialty Bed Safety Call Light Within Reach Bed Position Low Fall Precautions Phone Within Reach Bed Brake On Side Rails Up X3 Document 01/31/17 00:00 SAG (Rec: 01/31/17 01:04 SAG [id number]) Pain Assessment Pain Present Reports Pain Lower Back Pain Intensity 5 Description Ache Scale Used Numeric (1 - 10) Pain Intervention Position Distraction Reduced Environmental Stimuli Darkened Room Rounding Hourly Rounding Checked for Patient Positioning Patient Personal Items Placed Within Reach Checked Patient Pain Level Hourly Rounding Completed Yes Patient Awake Bedrest Yes Turn Q 2HR No Patient Position Right Side Positioning Aides Pillows Equipment in Use Specialty Bed Safety Call Light Within Reach Bed Position Low Fall Precautions Phone Within Reach Bed Brake On Side Rails Up X3 [place] Coma Scale Eye Opening Spontaneous Motor Obeys Commands Verbal Oriented Coma Scale Total 15 Document 01/31/17 00:15 [facility] (Rec: 01/31/17 00:21 [facility] [id number]) Vital Signs (Critical Care) Temperature (97.6 F-99.6 F) 98.1 F Temperature Source Oral Pulse Rate 84 Respiratory Rate 17 Pulse Oximetry (95-100) 95 Oxygen Delivery Nasal Cannula Oxygen Flow Rate (Liters) 4 Blood Pressure 101/81 Source Automatic Cuff Neuro Status *Recalled from last Alert documented assessment MEWS Score 1 Rounding Hourly Rounding Patient Personal Items Placed Within Reach Hourly Rounding Completed Yes Patient Awake Bedrest Yes Turn Q 2HR No Patient Position Back Positioning Aides Pillows Specialty Bed In Use Yes Equipment in Use Specialty Bed Safety Call Light Within Reach Bed Position Low Fall Precautions Phone Within Reach Bed Brake On Side Rails Up X3 Document 01/31/17 02:00 [facility] (Rec: 01/31/17 02:09 [facility] [id number]) Rounding Hourly Rounding Patient Personal Items Placed Within Reach Hourly Rounding Completed Yes Patient Awake Bedrest Yes Turn Q 2HR No Patient Position Right Side Positioning Aides Pillows Specialty Bed In Use Yes Equipment in Use Specialty Bed Safety Call Light Within Reach Bed Position Low Phone Within Reach Bed Brake On Side Rails Up X2 Document 01/31/17 04:40 [facility] (Rec: 01/31/17 04:44 [facility] [id number]) Vital Signs (Critical Care) Temperature (97.6 F-99.6 F) 97.2 F L Temperature Source Axillary Pulse Rate 76 Respiratory Rate 15 Pulse Oximetry (95-100) 96 Oxygen Delivery Nasal Cannula Oxygen Flow Rate (Liters) 4 Blood Pressure 101/60 Source Automatic Cuff Neuro Status *Recalled from last Alert documented assessment MEWS Score 1 Weight Assessment Weight 91.2 kg Weight Measurement Method Built in Bedscale Rounding Hourly Rounding Patient Personal Items Placed Within Reach Hourly Rounding Completed Yes Patient Sleeping Bedrest Yes Turn Q 2HR No Patient Position Right Side Positioning Aides Pillows Specialty Bed In Use Yes Equipment in Use Specialty Bed Safety Call Light Within Reach Bed Position Low Phone Within Reach Bed Brake On Side Rails Up X3 Document 01/31/17 05:02 SAG (Rec: 01/31/17 05:09 SAG [id number]) Rounding Hourly Rounding Checked for Patient Positioning Patient Personal Items Placed Within Reach Checked Patient Pain Level Hourly Rounding Completed Yes Patient Awake Bedrest Yes Turn Q 2HR No Patient Position Left Side Positioning Aides Pillows Specialty Bed In Use Yes Equipment in Use Specialty Bed Safety Call Light Within Reach Bed Position Low Fall Precautions Phone Within Reach Bed Brake On Side Rails Up X2 [place] Coma Scale Eye Opening Spontaneous Motor Obeys Commands Verbal Oriented Coma Scale Total 15 Document 01/31/17 05:52 SAG (Rec: 01/31/17 05:53 SAG [id number]) Rounding Hourly Rounding Checked for Patient Positioning Patient Personal Items Placed Within Reach Hourly Rounding Completed Yes Patient Resting With Eyes Closed Bedrest Yes Turn Q 2HR No Patient Position Left Side Positioning Aides Pillows Specialty Bed In Use Yes Equipment in Use Specialty Bed Safety Call Light Within Reach Bed Position Low Fall Precautions Phone Within Reach Bed Brake On Side Rails Up X3 Document 01/31/17 07:00 MAB (Rec: 01/31/17 07:[address] [facility] [id number]) Vital Signs (Critical Care) Temperature (97.6 F-99.6 F) 97.5 F L Temperature Source Axillary Pulse Rate 77 Respiratory Rate 16 Pulse Oximetry (95-100) 97 Oxygen Delivery Nasal Cannula Oxygen Flow Rate (Liters) 4 Blood Pressure 98/65 Source Automatic Cuff Rounding Turn Q 2HR No Patient Position Right Side Document 01/31/17 08:00 KMS (Rec: 01/31/17 11:[address] [facility] [id number]) Rounding Hourly Rounding Checked for Patient Positioning Patient Personal Items Placed Within Reach Checked Patient Pain Level Hourly Rounding Completed Yes Patient Awake Bedrest Yes Turn Q 2HR No Patient Position Back Positioning Aides Pillows Specialty Bed In Use Yes Equipment in Use Specialty Bed Safety Call Light Within Reach Bed Position Low Fall Precautions Phone Within Reach Bed Brake On Side Rails Up X3 Precautions Contact Precautions Gl[place] Coma Scale Eye Opening Spontaneous Motor Obeys Commands Verbal Oriented Coma Scale Total 15 Document 01/31/17 10:20 KMS (Rec: 01/31/17 10:29 KMS [id number]) Vital Signs (Critical Care) Pulse Rate 81 Rhythm Sinus Rhythm Pulse Oximetry (95-100) 94 L Oxygen Delivery Room Air Pain Assessment Pain Present Reports Pain Abdomen Pain Intensity 10 Description Chronic Scale Used Numeric (1 - 10) Pain Intervention Position Distraction Rounding Hourly Rounding Checked for Patient Positioning Patient Helped to Bathroom or Assisted with Bedpan or Urinal Patient Personal Items Placed Within Reach Checked Patient Pain Level Hourly Rounding Completed Yes Patient Awake Comment patient requests bedpan Bedrest Yes Turn Q 2HR No Patient Position Back Positioning Aides Pillows Specialty Bed In Use Yes Head of Bed Position (degrees) 50 Equipment in Use Specialty Bed Safety Call Light Within Reach Bed Position Low Fall Precautions Phone Within Reach Bed Brake On Side Rails Up X3 Precautions Contact Precautions [place] Coma Scale Eye Opening Spontaneous Motor Obeys Commands Verbal Oriented Coma Scale Total 15 Document 01/31/17 10:40 CARLIE (Rec: 01/31/17 10:47 CARLIE [id number]) Blood Glucose Assessment Hypoglycemia Symptoms None Hyperglycemia Symptoms None Pain Assessment Pain Present Reports Pain Abdomen Pain Intervention None Lower Back Pain Intensity 10 Description Ache Chronic Scale Used Numeric (1 - 10) Description of Site lower back radiating bilaterally into hips Pain Intervention Medication Rounding Hourly Rounding Checked for Patient Positioning Patient Helped to Bathroom or Assisted with Bedpan or Urinal Patient Personal Items Placed Within Reach Checked Patient Pain Level Hourly Rounding Completed Yes Patient Awake Bedrest Yes Turn Q 2HR No Patient Position Back Positioning Aides Pillows Specialty Bed In Use Yes Head of Bed Position (degrees) 50 Equipment in Use Specialty Bed Safety Call Light Within Reach Bed Position Low Fall Precautions Phone Within Reach Bed Brake On Side Rails Up X2 Precautions Contact Precautions [place] Coma Scale Eye Opening Spontaneous Motor Obeys Commands Verbal Oriented Coma Scale Total 15 Bilateral Pupil Reaction Brisk Pupil Size (mm) 2 Pupil [place] Equal Document 01/31/17 11:13 CARLIE (Rec: 01/31/17 11:57 CARLIE [id number]) Pain Assessment Pain Present Reports Pain Lower Back Pain Intensity 8 Description Ache Chronic Scale Used Numeric (1 - 10) Description of Site lower back radiating bilateral in hips Pain Intervention Position Rounding Hourly Rounding Checked for Patient Positioning Patient Personal Items Placed Within Reach Checked Patient Pain Level Hourly Rounding Completed Yes Patient Awake Comment patient watching tv Bedrest Yes Turn Q 2HR No Patient Position Back Positioning Aides Pillows Specialty Bed In Use Yes Head of Bed Position (degrees) 50 Safety Call Light Within Reach Bed Position Low Fall Precautions Phone Within Reach Bed Brake On Side Rails Up X2 [place] Coma Scale Eye Opening Spontaneous Motor Obeys Commands Verbal Oriented Coma Scale Total 15 Document 01/31/17 11:39 MAB (Rec: 01/31/17 11:50 MAB [id number]) Vital Signs (Critical Care) Temperature (97.6 F-99.6 F) 98.2 F Temperature Source Oral Pulse Rate 81 Respiratory Rate 16 Pulse Oximetry (95-100) 93 L Oxygen Delivery Room Air Blood Pressure 90/51 Source Automatic Cuff Blood Glucose Assessment Blood Glucose* 363 Rounding Turn Q 2HR No Patient Position Back Document 01/31/17 14:53 CARLIE (Rec: 01/31/17 15:28 CARLIE [id number]) Rounding Hourly Rounding Checked for Patient Positioning Patient Personal Items Placed Within Reach Checked Patient Pain Level Hourly Rounding Completed Yes Patient Awake Comment Patient sitting in chair at bedside Bedrest No Turn Q 2HR No Patient Position Chair Specialty Bed In Use Yes Safety Call Light Within Reach Bed Position Low Fall Precautions Phone Within Reach Bed Brake On Side Rails Up X2 Precautions Contact Precautions [place] Coma Scale Eye Opening Spontaneous Motor Obeys Commands Verbal Oriented Coma Scale Total 15 Bilateral Pupil Reaction Brisk Pupil Size (mm) 2 Pupil [place] Equal Document 01/31/17 16:05 MAB (Rec: 01/31/17 16:12 MAB [id number]) Vital Signs (Critical Care) Temperature (97.6 F-99.6 F) 97.9 F Temperature Source Oral Pulse Rate 77 Respiratory Rate 16 Pulse Oximetry (95-100) 97 Oxygen Delivery Room Air Blood Pressure 119/64 Source Automatic Cuff Blood Glucose Assessment Blood Glucose* 147 Rounding Turn Q 2HR No Patient Position Chair Document 01/31/17 18:00 KMS (Rec: 01/31/17 18:36 KMS [id number]) Rounding Hourly Rounding Checked for Patient Positioning Patient Personal Items Placed Within Reach Hourly Rounding Completed Yes Patient Awake Comment assisted back to bed Bedrest No Turn Q 2HR No Patient Position Back Positioning Aides Pillows Specialty Bed In Use Yes Head of Bed Position (degrees) 45 Equipment in Use Anti-embolic Stockings Side Rail Pads Specialty Bed Safety Call Light Within Reach Bed Position Low Fall Precautions Phone Within Reach Bed Brake On Side Rails Up X2 Precautions Contact Precautions [place] Coma Scale Eye Opening Spontaneous Motor Obeys Commands Verbal Oriented Coma Scale Total 15 Document 01/31/17 20:59 JLK (Rec: 02/01/17 00:52 Viv [id number]) Rounding Hourly Rounding Checked for Patient Positioning Patient Personal Items Placed Within Reach Checked Patient Pain Level Hourly Rounding Completed Yes Patient Awake Turn Q 2HR Yes Patient Position Sitting up in Bed Positioning Aides Pillows Safety Call Light Within Reach Bed Position Low Bed Exit Alarm Fall Precautions Phone Within Reach Bed Brake On Side Rails Up X3 [place] Coma Scale Eye Opening Spontaneous Motor Obeys Commands Verbal Oriented Coma Scale Total 15 Bilateral Pupil Reaction Brisk Pupil Size (mm) 2 Pupil [place] Equal Document 01/31/17 22:12 JNV (Rec: 01/31/17 22:14 JNV [id number]) Vital Signs (Critical Care) Temperature (97.6 F-99.6 F) 97.5 F L Temperature Source Axillary Pulse Rate 79 Respiratory Rate 16 Pulse Oximetry (95-100) 96 Oxygen Delivery Room Air Blood Pressure 112/65 Source Automatic Cuff Blood Glucose Assessment Blood Glucose* 262 Rounding Hourly Rounding Checked for Patient Positioning Patient Personal Items Placed Within Reach Hourly Rounding Completed Yes Patient Awake Bedrest No Turn Q 2HR No Patient Position Back Positioning Aides Pillows Equipment in Use Anti-embolic Stockings Side Rail Pads Specialty Bed Safety Call Light Within Reach Bed Position Low Fall Precautions Phone Within Reach Bed Brake On Side Rails Up X2 Precautions Contact Precautions Document 02/01/17 00:01 HOLLYViv (Rec: 02/01/17 02:34 HOLLYViv [id number]) Pain Assessment Pain Present Reports No Pain Rounding Hourly Rounding Checked for Patient Positioning Patient Personal Items Placed Within Reach Checked Patient Pain Level Hourly Rounding Completed Yes Patient Awake Turn Q 2HR No Patient Position Left Side Positioning Aides Pillows Specialty Bed In Use Yes Equipment in Use Anti-embolic Stockings Side Rail Pads Specialty Bed Safety Call Light Within Reach Bed Position Low Fall Precautions Phone Within Reach Side Rails Up X2 Precautions Contact Precautions [place] Coma Scale Eye Opening Spontaneous Motor Obeys Commands Verbal Oriented Coma Scale Total 15 Bilateral Pupil Reaction Brisk Pupil Size (mm) 3 Pupil [place] Equal Document 02/01/17 00:14 JNV (Rec: 02/01/17 00:15 JNV [id number]) Vital Signs (Critical Care) Temperature (97.6 F-99.6 F) 97.8 F Temperature Source Axillary Pulse Rate 79 Respiratory Rate 14 Pulse Oximetry (95-100) 93 L Oxygen Delivery Room Air Blood Pressure 120/72 Source Automatic Cuff Rounding Hourly Rounding Checked for Patient Positioning Patient Personal Items Placed Within Reach Hourly Rounding Completed Yes Patient Awake Bedrest No Turn Q 2HR No Patient Position Left Side Positioning Aides Pillows Equipment in Use Anti-embolic Stockings Side Rail Pads Specialty Bed Safety Call Light Within Reach Bed Position Low Fall Precautions Phone Within Reach Bed Brake On Side Rails Up X2 Precautions Contact Precautions Document 02/01/17 02:00 JLK (Rec: 02/01/17 02:23 JLK [id number]) Pain Assessment Pain Present Reports No Pain Rounding Hourly Rounding Checked for Patient Positioning Patient Personal Items Placed Within Reach Checked Patient Pain Level Hourly Rounding Completed Yes Patient Awake Bedrest No Turn Q 2HR No Patient Position Sitting up in Bed Positioning Aides Pillows Equipment in Use Anti-embolic Stockings Side Rail Pads Specialty Bed Safety Call Light Within Reach Bed Position Low Fall Precautions Phone Within Reach Side Rails Up X2 Precautions Contact Precautions [place] Coma Scale Eye Opening Spontaneous Motor Obeys Commands Verbal Oriented Coma Scale Total 15 Bilateral Pupil Reaction Brisk Pupil Size (mm) 3 Pupil [place] Equal Document 02/01/17 04:15 JLK (Rec: 02/01/17 04:22 JLK [id number]) Pain Assessment Pain Present Reports No Pain Rounding Hourly Rounding Checked for Patient Positioning Patient Personal Items Placed Within Reach Checked Patient Pain Level Hourly Rounding Completed Yes Patient Awake Turn Q 2HR No Patient Position Left Side Positioning Aides Pillows Specialty Bed In Use Yes Safety Call Light Within Reach Bed Position Low Fall Precautions Phone Within Reach Bed Brake On Side Rails Up X2 Precautions Contact Precautions [place] Coma Scale Eye Opening Spontaneous Motor Obeys Commands Verbal Oriented Coma Scale Total 15 Bilateral Pupil Reaction Brisk Pupil Size (mm) 3 Pupil [place] Equal Document 02/01/17 04:44 CAT (Rec: 02/01/17 04:51 CAT [id number]) Vital Signs (Critical Care) Temperature (97.6 F-99.6 F) 98.4 F Temperature Source Axillary Pulse Rate 65 Respiratory Rate 15 Pulse Oximetry (95-100) 95 Oxygen Delivery Nasal Cannula Oxygen Flow Rate (Liters) 3 Blood Pressure 106/53 Source Automatic Cuff Weight Assessment Weight 98 kg Weight Measurement Method Built in Bedscale Rounding Hourly Rounding Checked for Patient Positioning Patient Personal Items Placed Within Reach Hourly Rounding Completed Yes Patient Awake Bedrest No Turn Q 2HR No Patient Position Left Side Positioning Aides Pillows Specialty Bed In Use Yes Equipment in Use Anti-embolic Stockings Side Rail Pads Specialty Bed Safety Call Light Within Reach Bed Position Low Fall Precautions Phone Within Reach Bed Brake On Side Rails Up X2 Precautions Contact Precautions Document 02/01/17 05:51 JLK (Rec: 02/01/17 05:53 JLK [id number]) Pain Assessment Pain Present Reports No Pain Rounding Hourly Rounding Checked for Patient Positioning Patient Personal Items Placed Within Reach Checked Patient Pain Level Hourly Rounding Completed Yes Patient Resting With Eyes Closed Bedrest No Turn Q 2HR No Patient Position Left Side Positioning Aides Pillows Specialty Bed In Use Yes Equipment in Use Anti-embolic Stockings Side Rail Pads Specialty Bed Safety Call Light Within Reach Bed Position Low Fall Precautions Phone Within Reach Bed Brake On Side Rails Up X2 Precautions Contact Precautions [place] Coma Scale Eye Opening Spontaneous Motor Obeys Commands Verbal Oriented Coma Scale Total 15 Bilateral Pupil Reaction Brisk Pupil Size (mm) 3 Pupil [place] Equal Document 02/01/17 07:26 KJK (Rec: 02/01/17 07:57 KJK [id number]) Vital Signs (Critical Care) Temperature (97.6 F-99.6 F) 98.2 F Temperature Source Rectal Pulse Rate 61 Respiratory Rate 16 Pulse Oximetry (95-100) 95 Oxygen Delivery Nasal Cannula Humidified Blood Pressure 94/52 Source Automatic Cuff Rounding Hourly Rounding Checked for Patient Positioning Patient Helped to Bathroom or Assisted with Bedpan or Urinal Patient Personal Items Placed Within Reach Hourly Rounding Completed Yes Patient Resting With Eyes Closed Bedrest No Turn Q 2HR No Patient Position Back Specialty Bed In Use Yes Safety Call Light Within Reach Bed Position Low Fall Precautions Phone Within Reach Bed Brake On Side Rails Up X2 Document 02/01/17 07:57 KMS (Rec: 02/01/17 07:58 KMS [id number]) Vital Signs (Critical Care) Pulse Rate 61 Rhythm Sinus Rhythm First Degree Block Pulse Oximetry (95-100) 95 Oxygen Delivery Nasal Cannula Oxygen Flow Rate (Liters) 3 Pain Assessment Pain Present Reports Pain Generalized Pain Intensity 10 Description Chronic Scale Used Numeric (1 - 10) Pain Intervention Medication Comment roxicodone given Rounding Hourly Rounding Checked for Patient Positioning Patient Personal Items Placed Within Reach Checked Patient Pain Level Hourly Rounding Completed Yes Patient Sleeping Comment wakes for assessment Bedrest No Turn Q 2HR No Patient Position Left Side Positioning Aides Pillows Specialty Bed In Use Yes Equipment in Use Anti-embolic Stockings Side Rail Pads Specialty Bed Safety Call Light Within Reach Bed Position Low Fall Precautions Phone Within Reach Bed Brake On Side Rails Up X2 Precautions Contact Precautions [place] Coma Scale Eye Opening Spontaneous Motor Obeys Commands Verbal Oriented Coma Scale Total 15 Bilateral Pupil Reaction Brisk Pupil Size (mm) 3 Pupil [place] Equal Document 02/01/17 09:00 KMS (Rec: 02/01/17 10:[address] [facility] [id number]) Rounding Hourly Rounding Checked for Patient Positioning Patient Helped to Bathroom or Assisted with Bedpan or Urinal Patient Personal Items Placed Within Reach Hourly Rounding Completed Yes Patient Awake Comment assisted to BSC Turn Q 2HR No Patient Position Bedside Commode Equipment in Use Anti-embolic Stockings Side Rail Pads Specialty Bed Safety Call Light Within Reach Bed Position Low Fall Precautions Phone Within Reach Bed Brake On Side Rails Up X2 Precautions Contact Precautions [place] Coma Scale Eye Opening Spontaneous Motor Obeys Commands Verbal Oriented Coma Scale Total 15 Document 02/01/17 10:00 KMS (Rec: 02/01/17 10:[address] [facility] [id number]) Pain Assessment Pain Present Reports No Pain Generalized Comment pain improved Rounding Hourly Rounding Checked for Patient Positioning Patient Personal Items Placed Within Reach Checked Patient Pain Level Hourly Rounding Completed Yes Patient Resting With Eyes Closed Comment US at bedside for paracentesis Turn Q 2HR No Patient Position Back Equipment in Use Anti-embolic Stockings Side Rail Pads Specialty Bed Safety Call Light Within Reach Fall Precautions Phone Within Reach Bed Brake On Side Rails Up X2 Precautions Contact Precautions [place] Coma Scale Eye Opening Spontaneous Motor Obeys Commands Verbal Oriented Coma Scale Total 15 Document 02/01/17 11:15 KJK (Rec: 02/01/17 11:17 KJK [id number]) Vital Signs (Critical Care) Temperature Source Oral Pulse Rate 72 Respiratory Rate 16 Pulse Oximetry (95-100) 97 Oxygen Delivery Nasal Cannula Blood Pressure 102/57 Source Automatic Cuff Blood Glucose Assessment Blood Glucose* 273 Rounding Hourly Rounding Checked for Patient Positioning Patient Personal Items Placed Within Reach Hourly Rounding Completed Yes Bedrest No Turn Q 2HR No Patient Position Back Equipment in Use Specialty Bed Safety Call Light Within Reach Bed Position Low Fall Precautions Phone Within Reach Bed Brake On Side Rails Up X2 Document 02/01/17 13:24 KMS (Rec: 02/01/17 13:26 KMS [facility] [place] Vital Signs (Critical Care) Pulse Rate 66 Rhythm Sinus Rhythm Bundle Branch Block Pulse Oximetry (95-100) 94 L Oxygen Delivery Nasal Cannula Oxygen Flow Rate (Liters) 3 Pain Assessment Pain Present Reports No Pain Generalized Pain Intervention Reduced Environmental Stimuli Darkened Room Comment resting quietly, denies complaint Rounding Hourly Rounding Checked for Patient Positioning Patient Personal Items Placed Within Reach Checked Patient Pain Level Hourly Rounding Completed Yes Patient Resting With Eyes Closed Bedrest No Turn Q 2HR No Patient Position Left Side Positioning Aides Pillows Specialty Bed In Use Yes Equipment in Use Anti-embolic Stockings Side Rail Pads Specialty Bed Safety Call Light Within Reach Bed Position Low Fall Precautions Phone Within Reach Bed Brake On Side Rails Up X2 Precautions Contact Precautions [place] Coma Scale Eye Opening Spontaneous Motor Obeys Commands Verbal Oriented Coma Scale Total 15 Document 02/01/17 14:55 KMS (Rec: 02/01/17 15:02 KMS [facility] [place] Pain Assessment Pain Present Reports Pain Lower Back Pain Intensity 6 Description Chronic Scale Used Numeric (1 - 10) Pain Intervention Position Distraction Rounding Hourly Rounding Checked for Patient Positioning Patient Personal Items Placed Within Reach Checked Patient Pain Level Hourly Rounding Completed Yes Patient Awake Comment resting Bedrest No Turn Q 2HR No Patient Position Right Side Positioning Aides Pillows Specialty Bed In Use Yes Equipment in Use Anti-embolic Stockings Side Rail Pads Specialty Bed Safety Call Light Within Reach Bed Position Low Fall Precautions Phone Within Reach Bed Brake On Side Rails Up X3 Precautions Contact Precautions [place] Coma Scale Eye Opening Spontaneous Motor Obeys Commands Verbal Oriented Coma Scale Total 15 Bilateral Pupil Reaction Brisk Pupil Size (mm) 4 Pupil [place] Equal Document 02/01/17 16:19 KMS (Rec: 02/01/17 16:34 KMS [facility] [place] Vital Signs (Critical Care) Pulse Rate 81 Rhythm Sinus Rhythm Bundle Branch Block Pulse Oximetry (95-100) 94 L Oxygen Delivery Nasal Cannula Oxygen Flow Rate (Liters) 2 Pain Assessment Pain Present Reports Pain Abdomen Pain Intensity 8 Scale Used Numeric (1 - 10) Description of Site umbilical hernia Pain Intervention Medication Comment roxicodone given Rounding Hourly Rounding Checked for Patient Positioning Patient Personal Items Placed Within Reach Checked Patient Pain Level Hourly Rounding Completed Yes Patient Awake Comment assisted up to chair Bedrest No Turn Q 2HR No Patient Position Chair Positioning Aides Pillows Specialty Bed In Use Yes Equipment in Use Anti-embolic Stockings Side Rail Pads Specialty Bed Safety Call Light Within Reach Bed Position Low Fall Precautions Phone Within Reach Bed Brake On Side Rails Up X2 Precautions Contact Precautions [place] Coma Scale Eye Opening Spontaneous Motor Obeys Commands Verbal Oriented Coma Scale Total 15 Bilateral Pupil Reaction Brisk Pupil Size (mm) 4 Pupil [place] Equal Document 02/01/17 17:41 KMS (Rec: 02/01/17 17:53 KMS [id number]) Pain Assessment Pain Present Reports Pain Generalized Pain Intensity 8 Scale Used Numeric (1 - 10) Comment Patient states he does feel better now up in the chair than earlier Rounding Hourly Rounding Checked for Patient Positioning Patient Helped to Bathroom or Assisted with Bedpan or Urinal Patient Personal Items Placed Within Reach Checked Patient Pain Level Hourly Rounding Completed Yes Patient Awake Comment family to bedside Bedrest No Turn Q 2HR No Patient Position Chair Equipment in Use Anti-embolic Stockings Safety Call Light Within Reach Bed Position Low Fall Precautions Phone Within Reach Bed Brake On Precautions Contact Precautions [place] Coma Scale Eye Opening Spontaneous Motor Obeys Commands Verbal Oriented Coma Scale Total 15 Document 02/01/17 19:41 JNG (Rec: 02/01/17 19:44 JNG [id number]) Vital Signs (Critical Care) Temperature (97.6 F-99.6 F) 98.1 F Temperature Source Axillary Pulse Rate 81 Respiratory Rate 16 Pulse Oximetry (95-100) 94 L Oxygen Delivery Room Air Oxygen Flow Rate (Liters) 0 Blood Pressure 111/74 Source Automatic Cuff Rounding Hourly Rounding Checked for Patient Positioning Patient Helped to Bathroom or Assisted with Bedpan or Urinal Patient Personal Items Placed Within Reach Hourly Rounding Completed Yes Patient Awake Comment family in room. Bedrest No Turn Q 2HR No Patient Position Back Safety Call Light Within Reach Bed Position Low Fall Precautions Phone Within Reach Bed Brake On Side Rails Up X2 Precautions Contact Precautions Document 02/01/17 19:41 JCL (Rec: 02/01/17 22:08 JCL [id number]) Pain Assessment Pain Present Reports No Pain Rounding Hourly Rounding Checked for Patient Positioning Patient Personal Items Placed Within Reach Checked Patient Pain Level Hourly Rounding Completed Yes Patient Awake Comment Patient resting in bed with family at bedside. Patient states no needs. Bedrest No Turn Q 2HR No Patient Position Back Document 02/01/17 20:37 JCL (Rec: 02/01/17 22:02 JCL [id number]) Rounding Hourly Rounding Checked for Patient Positioning Patient Helped to Bathroom or Assisted with Bedpan or Urinal Patient Personal Items Placed Within Reach Checked Patient Pain Level Hourly Rounding Completed Yes Patient Awake Comment Patient resting in bed with family at bedside. Bedrest No Turn Q 2HR No Patient Position Back Safety Call Light Within Reach Bed Position Low Fall Precautions Phone Within Reach Bed Brake On Side Rails Up X2 [place] Coma Scale Eye Opening Spontaneous Motor Obeys Commands Verbal Oriented Coma Scale Total 15 Bilateral Pupil Reaction Brisk Pupil Size (mm) 4 Pupil [place] Equal Document 02/01/17 21:05 JCL (Rec: 02/01/17 22:09 JCL [id number]) Pain Assessment Pain Present Reports Pain Abdomen Pain Intensity 8 Description Ache Scale Used Numeric (1 - 10) Pain Intervention Medication Rounding Hourly Rounding Checked for Patient Positioning Patient Personal Items Placed Within Reach Checked Patient Pain Level Hourly Rounding Completed Yes Patient Awake Comment Patient states no needs at this time. Family at bedside. Bedrest No Turn Q 2HR No Patient Position Left Side Equipment in Use Anti-embolic Stockings Safety Call Light Within Reach Bed Position Low Fall Precautions Phone Within Reach Bed Brake On Side Rails Up X2 Precautions Contact Precautions Document 02/01/17 22:19 JNG (Rec: 02/01/17 22:20 JNG [id number]) Rounding Hourly Rounding Checked for Patient Positioning Patient Helped to Bathroom or Assisted with Bedpan or Urinal Patient Personal Items Placed Within Reach Hourly Rounding Completed Yes Patient Sleeping Comment Pt. allowed to rest. Bedrest No Turn Q 2HR No Patient Position Left Side Safety Call Light Within Reach Bed Position Low Fall Precautions Phone Within Reach Bed Brake On Side Rails Up X2 Precautions Contact Precautions Document 02/01/17 23:28 JNG (Rec: 02/01/17 23:32 JNG [id number]) Vital Signs (Critical Care) Temperature (97.6 F-99.6 F) 97.9 F Temperature Source Axillary Pulse Rate 74 Respiratory Rate 12 Pulse Oximetry (95-100) 93 L Oxygen Delivery Nasal Cannula Oxygen Flow Rate (Liters) 3 Blood Pressure 113/66 Source Automatic Cuff Rounding Hourly Rounding Checked for Patient Positioning Patient Helped to Bathroom or Assisted with Bedpan or Urinal Patient Personal Items Placed Within Reach Hourly Rounding Completed Yes Patient Resting With Eyes Closed Comment Pt. refuses bath at this time. Bedrest No Turn Q 2HR No Patient Position Back Safety Call Light Within Reach Bed Position Low Fall Precautions Phone Within Reach Bed Brake On Side Rails Up X2 Precautions Contact Precautions Document 02/02/17 00:10 JCL (Rec: 02/02/17 00:27 JCL [id number]) Rounding Hourly Rounding Checked for Patient Positioning Patient Personal Items Placed Within Reach Checked Patient Pain Level Hourly Rounding Completed Yes Patient Awake Comment Patient awakened for assessment. Bedrest No Turn Q 2HR No Patient Position Back Equipment in Use Anti-embolic Stockings Safety Call Light Within Reach Bed Position Low Fall Precautions Phone Within Reach Bed Brake On Side Rails Up X2 [place]asc[place] Coma Scale Eye Opening Spontaneous Motor Obeys Commands Verbal Oriented Coma Scale Total 15 Document 02/02/17 02:16 JNG (Rec: 02/02/17 02:17 JNG [id number]) Rounding Hourly Rounding Checked for Patient Positioning Patient Helped to Bathroom or Assisted with Bedpan or Urinal Patient Personal Items Placed Within Reach Hourly Rounding Completed Yes Patient Sleeping Bedrest No Turn Q 2HR No Patient Position Back Safety Call Light Within Reach Bed Position Low Fall Precautions Phone Within Reach Bed Brake On Side Rails Up X2 Precautions Contact Precautions Document 02/02/17 04:37 JCL (Rec: 02/02/17 05:10 JCL [id number]) Pain Assessment Pain Present Reports No Pain Rounding Hourly Rounding Checked for Patient Positioning Patient Personal Items Placed Within Reach Checked Patient Pain Level Hourly Rounding Completed Yes Patient Awake Comment Patient awakened for assessment. States no needs. Bedrest No Turn Q 2HR No Patient Position Back Equipment in Use Anti-embolic Stockings Safety Call Light Within Reach Bed Position Low Fall Precautions Phone Within Reach Bed Brake On Side Rails Up X2 [place] Coma Scale Eye Opening Spontaneous Motor Obeys Commands Verbal Oriented Coma Scale Total 15 Document 02/02/17 04:40 JNG (Rec: 02/02/17 05:10 JNG [id number]) Vital Signs (Critical Care) Temperature (97.6 F-99.6 F) 97.4 F L Temperature Source Axillary Pulse Rate 71 Respiratory Rate 16 Pulse Oximetry (95-100) 94 L Oxygen Delivery Nasal Cannula Oxygen Flow Rate (Liters) 3 Blood Pressure 107/67 Source Automatic Cuff Weight Assessment Weight 98.6 kg Weight Measurement Method Built in Bedscale Rounding Hourly Rounding Checked for Patient Positioning Patient Helped to Bathroom or Assisted with Bedpan or Urinal Patient Personal Items Placed Within Reach Hourly Rounding Completed Yes Patient Awake Comment pt. helped to bsc. Bedrest No Turn Q 2HR No Patient Position Back Safety Call Light Within Reach Bed Position Low Fall Precautions Phone Within Reach Bed Brake On Side Rails Up X2 Precautions Contact Precautions Document 02/02/17 06:17 JCL (Rec: 02/02/17 06:24 JCL [id number]) Pain Assessment Pain Present Allowed to Sleep Rounding Hourly Rounding Checked for Patient Positioning Patient Personal Items Placed Within Reach Hourly Rounding Completed Yes Patient Sleeping Comment Patient resting with eyes closed. No signs of destress noted. Bedrest No Turn Q 2HR No Patient Position Left Side Positioning Aides Pillows Equipment in Use Anti-embolic Stockings Safety Call Light Within Reach Bed Position Low Fall Precautions Phone Within Reach Side Rails Up X1 Side Rails Up X2 Precautions Contact Precautions Document 02/02/17 07:25 MAB (Rec: 02/02/17 07:31 MAB [id number]) Vital Signs (Critical Care) Temperature (97.6 F-99.6 F) 97.6 F Temperature Source Axillary Pulse Rate 64 Respiratory Rate 14 Pulse Oximetry (95-100) 95 Oxygen Delivery Nasal Cannula Oxygen Flow Rate (Liters) 3 Blood Pressure 102/52 Source Automatic Cuff Blood Glucose Assessment Blood Glucose* 313 Rounding Turn Q 2HR No Patient Position Left Side Document 02/02/17 09:04 CAM (Rec: 02/02/17 09:09 CAM [id number]) Blood Glucose Assessment Hypoglycemia Symptoms None Hyperglycemia Symptoms None Rounding Hourly Rounding Checked for Patient Positioning Patient Personal Items Placed Within Reach Checked Patient Pain Level Hourly Rounding Completed Yes Patient Awake Bedrest No Turn Q 2HR No Patient Position Chair Positioning Aides Pillows Specialty Bed In Use Yes Equipment in Use EPCDs Specialty Bed Safety Call Light Within Reach Bed Exit Alarm Fall Precautions Phone Within Reach Bed Brake On Side Rails Up X2 [place] Coma Scale Eye Opening Spontaneous Motor Obeys Commands Verbal Oriented Coma Scale Total 15 Bilateral Pupil Reaction Reactive Pupil Size (mm) 3 Pupil [place] Equal Document 02/02/17 10:10 CAM (Rec: 02/02/17 10:11 CAM [id number]) Rounding Hourly Rounding Checked for Patient Positioning Patient Personal Items Placed Within Reach Checked Patient Pain Level Hourly Rounding Completed Yes Patient Resting With Eyes Closed Bedrest No Turn Q 2HR No Patient Position Left Side Positioning Aides Pillows Specialty Bed In Use Yes Equipment in Use EPCDs Specialty Bed Safety Call Light Within Reach Bed Position Low Fall Precautions Phone Within Reach Bed Brake On Side Rails Up X2 [place] Coma Scale Eye Opening Spontaneous Motor Obeys Commands Verbal Oriented Coma Scale Total 15 Document 02/02/17 11:23 MAB (Rec: 02/02/17 11:32 MAB [id number]) Vital Signs (Critical Care) Temperature (97.6 F-99.6 F) 98 F Temperature Source Axillary Pulse Rate 62 Respiratory Rate 16 Pulse Oximetry (95-100) 95 Oxygen Delivery Nasal Cannula Oxygen Flow Rate (Liters) 3 Blood Pressure 122/78 Source Automatic Cuff Blood Glucose Assessment Blood Glucose* 264 Rounding Turn Q 2HR No Patient Position Bedside Commode Document 02/02/17 12:26 CAM (Rec: 02/02/17 12:30 CAM [id number]) Blood Glucose Assessment Hypoglycemia Symptoms None Hyperglycemia Symptoms None Pain Assessment Pain Present Reports Pain Generalized Pain Intensity 8 Description Ache Scale Used Numeric (1 - 10) Pain Intervention Medication Rounding Hourly Rounding Checked for Patient Positioning Patient Personal Items Placed Within Reach Checked Patient Pain Level Hourly Rounding Completed Yes Patient Awake Bedrest No Turn Q 2HR No Patient Position Sitting up in Bed Positioning Aides Pillows Specialty Bed In Use Yes Equipment in Use Specialty Bed Safety Call Light Within Reach Bed Position Low Bed Exit Alarm Fall Precautions Phone Within Reach Bed Brake On Side Rails Up X2 [place] Coma Scale Eye Opening Spontaneous Motor Obeys Commands Verbal Oriented Coma Scale Total 15 Bilateral Pupil Reaction Reactive Pupil Size (mm) 3 Pupil [place] Equal Document 02/02/17 13:44 CAM (Rec: 02/02/17 13:45 CAM [id number]) Pain Assessment Pain Present Reports Pain Generalized Pain Intensity 8 Description Ache Scale Used Numeric (1 - 10) Pain Intervention Medication Rounding Hourly Rounding Checked for Patient Positioning Patient Personal Items Placed Within Reach Checked Patient Pain Level Hourly Rounding Completed Yes Patient Awake Bedrest No Turn Q 2HR No Patient Position Sitting up in Bed Positioning Aides Pillows Specialty Bed In Use Yes Equipment in Use Specialty Bed Safety Call Light Within Reach Bed Position Low Fall Precautions Phone Within Reach Bed Brake On Side Rails Up X2 Document 02/02/17 15:54 MAB (Rec: 02/02/17 15:54 MAB [id number]) Blood Glucose Assessment Blood Glucose* 216 Rounding Turn Q 2HR No Patient Position Sitting up in Bed Document 02/02/17 16:48 CAM (Rec: 02/02/17 16:53 CAM [id number]) Vital Signs (Critical Care) Temperature (97.6 F-99.6 F) 97.9 F Temperature Source Oral Pulse Rate 92 Respiratory Rate 16 Pulse Oximetry (95-100) 95 Blood Pressure 116/69 Neuro Status *Recalled from last Alert documented assessment MEWS Score 1 Pain Assessment Pain Present Reports Pain Generalized Pain Intensity 8 Description Ache Scale Used Numeric (1 - 10) Pain Intervention Medication Rounding Hourly Rounding Checked for Patient Positioning Patient Personal Items Placed Within Reach Checked Patient Pain Level Hourly Rounding Completed Yes Patient Awake Turn Q 2HR Yes Patient Position Sitting up in Bed Equipment in Use Specialty Bed Safety Call Light Within Reach Bed Position Low Fall Precautions Phone Within Reach Bed Brake On Side Rails Up X2 [place] Coma Scale Eye Opening Spontaneous Motor Obeys Commands Verbal Oriented Coma Scale Total 15 Document 02/02/17 19:19 CAM (Rec: 02/02/17 19:20 CAM [id number]) Rounding Turn Q 2HR Yes Patient Position Back Document 02/02/17 19:52 JCL (Rec: 02/02/17 21:43 JCL [id number]) Rounding Hourly Rounding Checked for Patient Positioning Patient Personal Items Placed Within Reach Checked Patient Pain Level Hourly Rounding Completed Yes Patient Awake Comment Awakened patient for assessment. Bedrest No Turn Q 2HR No Patient Position Back Equipment in Use Anti-embolic Stockings Safety Call Light Within Reach Bed Position Low Bed Exit Alarm Fall Precautions Phone Within Reach Side Rails Up X2 [place] Coma Scale Eye Opening Spontaneous Motor Obeys Commands Verbal Oriented Coma Scale Total 15 Bilateral Pupil Reaction Reactive Pupil Size (mm) 4 Pupil [place] Equal Document 02/02/17 20:37 JNV (Rec: 02/02/17 20:38 JNV [id number]) Vital Signs (Critical Care) Temperature (97.6 F-99.6 F) 97.5 F L Temperature Source Axillary Pulse Rate 74 Respiratory Rate 17 Pulse Oximetry (95-100) 95 Oxygen Delivery Nasal Cannula Blood Pressure 106/53 Source Automatic Cuff Blood Glucose Assessment Blood Glucose* 314 Rounding Hourly Rounding Checked for Patient Positioning Patient Personal Items Placed Within Reach Hourly Rounding Completed Yes Patient Awake Bedrest No Turn Q 2HR No Patient Position Back Equipment in Use Specialty Bed Safety Call Light Within Reach Bed Position Low Fall Precautions Phone Within Reach Bed Brake On Side Rails Up X2 Document 02/02/17 21:15 JCL (Rec: 02/02/17 21:44 JCL [id number]) Pain Assessment Pain Present Reports No Pain Rounding Hourly Rounding Checked for Patient Positioning Patient Helped to Bathroom or Assisted with Bedpan or Urinal Patient Personal Items Placed Within Reach Checked Patient Pain Level Hourly Rounding Completed Yes Patient Awake Comment Patient helped back to bed, turned and adjusted. States no needs. Bedrest No Turn Q 2HR No Patient Position Left Side Equipment in Use Anti-embolic Stockings Safety Call Light Within Reach Bed Position Low Bed Exit Alarm Fall Precautions Phone Within Reach Bed Brake On Side Rails Up X2 Precautions Contact Precautions Document 02/02/17 22:21 JNV (Rec: 02/02/17 22:21 JNV [id number]) Rounding Hourly Rounding Checked for Patient Positioning Patient Personal Items Placed Within Reach Hourly Rounding Completed Yes Patient Sleeping Bedrest No Turn Q 2HR No Patient Position Left Side Equipment in Use Specialty Bed Safety Call Light Within Reach Bed Position Low Fall Precautions Phone Within Reach Bed Brake On Side Rails Up X2 Precautions Contact Precautions Document 02/03/17 00:20 JCL (Rec: 02/03/17 00:49 JCL [id number]) Vital Signs (Critical Care) Temperature (97.6 F-99.6 F) 98.0 F Temperature Source Oral Pulse Rate 77 Rhythm Sinus Rhythm Respiratory Rate 12 Pulse Oximetry (95-100) 92 L Oxygen Delivery Nasal Cannula Oxygen Flow Rate (Liters) 3 Blood Pressure 111/68 Blood Pressure Mean (mm Hg) 84 Source Automatic Cuff Neuro Status *Recalled from last Alert documented assessment MEWS Score 0 Pain Assessment Pain Present Reports No Pain Rounding Hourly Rounding Checked for Patient Positioning Patient Personal Items Placed Within Reach Checked Patient Pain Level Hourly Rounding Completed Yes Patient Awake Comment Patient awakened for assessment. States no needs at this time. Bedrest No Turn Q 2HR No Patient Position Left Side Specialty Bed In Use Patient request to not be turned. Equipment in Use Anti-embolic Stockings Safety Call Light Within Reach Bed Position Low Bed Exit Alarm Fall Precautions Phone Within Reach Bed Brake On Side Rails Up X2 Glascow Coma Scale Eye Opening Spontaneous Motor Obeys Commands Verbal Oriented Coma Scale Total 15 Document 02/03/17 03:53 JNV (Rec: 02/03/17 03:54 JNV [id number]) Vital Signs (Critical Care) Temperature (97.6 F-99.6 F) 98.5 F Temperature Source Axillary Pulse Rate 84 Respiratory Rate 14 Pulse Oximetry (95-100) 92 L Oxygen Delivery Nasal Cannula Oxygen Flow Rate (Liters) 3 Blood Pressure 127/72 Source Automatic Cuff Weight Assessment Weight 99.4 kg Weight Measurement Method Built in Bedscale Rounding Hourly Rounding Checked for Patient Positioning Patient Personal Items Placed Within Reach Hourly Rounding Completed Yes Patient Awake Bedrest No Turn Q 2HR No Patient Position Left Side Equipment in Use Specialty Bed Safety Call Light Within Reach Bed Position Low Fall Precautions Phone Within Reach Bed Brake On Side Rails Up X2 Precautions Contact Precautions Document 02/03/17 04:14 JCL (Rec: 02/03/17 04:40 JCL [id number]) Rounding Hourly Rounding Checked for Patient Positioning Patient Personal Items Placed Within Reach Checked Patient Pain Level Hourly Rounding Completed Yes Patient Awake Comment Patient resting in bed. No signs of destress noted. Bedrest No Turn Q 2HR No Patient Position Left Side Specialty Bed In Use Patient again declined turn. Safety Call Light Within Reach Bed Position Low Fall Precautions Phone Within Reach Side Rails Up X2 Glascow Coma Scale Eye Opening Spontaneous Motor Obeys Commands Verbal Oriented Coma Scale Total 15 Document 02/03/17 06:24 JCL (Rec: 02/03/17 06:24 JCL [id number]) Pain Assessment Pain Present Allowed to Sleep Rounding Hourly Rounding Checked for Patient Positioning Patient Personal Items Placed Within Reach Hourly Rounding Completed Yes Patient Sleeping Comment Patient resting with eyes closed. Patient at baseline. Bedrest No Turn Q 2HR No Patient Position Left Side Safety Call Light Within Reach Bed Position Low Bed Exit Alarm Fall Precautions Phone Within Reach Bed Brake On Side Rails Up X2 Precautions Contact Precautions Document 02/03/17 07:20 LE (Rec: 02/03/17 07:21 LE [id number]) Vital Signs (Critical Care) Temperature (97.6 F-99.6 F) 98.3 F Temperature Source Axillary Pulse Rate 72 Respiratory Rate 20 Pulse Oximetry (95-100) 94 L Oxygen Delivery Nasal Cannula Blood Pressure 118/74 Source Automatic Cuff Blood Glucose Assessment Blood Glucose* 135 Rounding Hourly Rounding Checked for Patient Positioning Patient Helped to Bathroom or Assisted with Bedpan or Urinal Patient Personal Items Placed Within Reach Hourly Rounding Completed Yes Patient Awake Bedrest No Turn Q 2HR No Patient Position Back Safety Call Light Within Reach Bed Position Low Fall Precautions Phone Within Reach Bed Brake On Side Rails Up X2 Precautions Contact Precautions Document 02/03/17 07:20 CARLIE (Rec: 02/03/17 08:00 CARLIE [id number]) Rounding Hourly Rounding Checked for Patient Positioning Patient Personal Items Placed Within Reach Checked Patient Pain Level Hourly Rounding Completed Yes Patient Awake Bedrest No Turn Q 2HR No Patient Position Back Equipment in Use Specialty Bed Safety Call Light Within Reach Bed Position Low Fall Precautions Phone Within Reach Side Rails Up X2 Precautions Contact Precautions Glascow Coma Scale Eye Opening Spontaneous Motor Obeys Commands Verbal Oriented Coma Scale Total 15 Document 02/03/17 09:14 CARLIE (Rec: 02/03/17 11:00 CARLIE [id number]) Pain Assessment Pain Present Reports Pain Lower Back Pain Intensity 6 Description Ache Chronic Scale Used Numeric (1 - 10) Pain Intervention Position Rounding Hourly Rounding Checked for Patient Positioning Patient Personal Items Placed Within Reach Checked Patient Pain Level Hourly Rounding Completed Yes Patient Awake Comment Patient denies need to use restroom Bedrest No Turn Q 2HR No Patient Position Right Side Specialty Bed In Use Yes Head of Bed Position (degrees) 30 Equipment in Use Specialty Bed Safety Call Light Within Reach Bed Position Low Fall Precautions Phone Within Reach Bed Brake On Side Rails Up X2 Precautions Contact Precautions Glascow Coma Scale Eye Opening Spontaneous Motor Obeys Commands Verbal Oriented Coma Scale Total 15 Document 02/03/17 11:16 LE (Rec: 02/03/17 11:17 LE [id number]) Vital Signs (Critical Care) Temperature (97.6 F-99.6 F) 97.8 F Temperature Source Axillary Pulse Rate 71 Respiratory Rate 18 Pulse Oximetry (95-100) 94 L Oxygen Delivery Aerosol Mask Blood Pressure 104/65 Source Automatic Cuff Blood Glucose Assessment Blood Glucose* 198 Rounding Hourly Rounding Checked for Patient Positioning Patient Personal Items Placed Within Reach Hourly Rounding Completed Yes Patient Resting With Eyes Closed Bedrest No Turn Q 2HR No Patient Position Back Equipment in Use Specialty Bed Safety Call Light Within Reach Bed Position Low Fall Precautions Phone Within Reach Bed Brake On Side Rails Up X2 Critical Value Reporting Start: 01/30/17 01: 14 Freq: Status: Complete Document 01/30/17 01:14 BAS (Rec: 01/30/17 01:15 BAS [id number]) Critical Values Reporting Test(s) and Results lactate 4.0 Time Results Received 01:15 Lab Results Repeated Back Yes Provider Notified Yes Time Provider Contacted 01:[address] Bosch Time Provider Responded 01:15 New Orders Received No Critical Value Reporting Start: 01/30/17 01: 58 Freq: .PRN Status: Complete Document 01/30/17 05:29 ALS (Rec: 01/30/17 05:30 ALS [id number]) Critical Values Reporting Test(s) and Results Lactic Acid and 4.4 Time Results Received 05:23 Lab Results Repeated Back Yes Provider Notified Yes Time Provider Contacted 05:[address] Aguila Time Provider Responded 05:25 Number of Attempts to Reach Provider 1 New Orders Received No Financial Developer Nutrition Assessment Start: 01/31/17 15: 18 Freq: Status: Discharge Document 01/31/17 15:18 LA (Rec: 01/31/17 15:24 LA [id number]) Nutritional Assessment - Financial Developer Subjective Data: 56 YOM admit d/t hepatic encephalopathy, PNA, Sepsis. Pt with worsening ascites, typically has scheduled paracentesis as OP. He remains slightly confused at this time, he reports eating all of his lunch except for one bite . He reports taking Boost at home, and good appetite. I am concerned about pt's home situation. He has lost around 30#, but this is difficult to assess d/t fluid retention. Hx: COPD, CHF, Liver cirrohsis , DM, alpha 1 antitrypsin deficiency, Meds: lasix, SSI ACHS, lactulose, abx, solumedrol, carafate Labs: Na-134, gluc-135, Mg-1.1 (not rechecked), L.A. down to 2.5 [place] Body Weight 208 Comment Ht: 6'5" Wt: 201# 2/21: 230# Diet ADA Activity Level Mild Activity Calories Needed to Maintain Weight 2365 kcal/day (25kcal/kg IBW) Estimated Protein Needs 113g/day (1.2g/kg IBW) Estimated Fluid Needs 1800 ml/day Initial assessment face to face time Involuntary weight loss with patient (mins) Nutrition Problem PES Statement related to fluid loss as evidenced by 20# wt loss x 2 weeks Initial Assessment Face to face time 15 with patient (mins) (minutes) Nutrition Intervention: Meals and Snacks Oral Nutrition Supplement Comment 1. ADA diet with ensure high protein BID for added protein- on lactulose- poor fluid status 2. Pt is not appropriate for education at this time. Nutrition Monitoring: Energy Intake Weight/weight changes Protein Profile Comment f/u 02/07 Discharge Assessment Start: 01/30/17 01: 14 Freq: Status: Discharge Document 02/03/17 10:49 CARLIE (Rec: 02/03/17 10:56 CARLIE [id number]) Discharge Assessment Discharge Disposition Home Mode of Discharge Wheelchair Private Vehicle Accompanied By Spouse Belongings sent with patient Yes Services Needed at Discharge Home Health Care Services Oxygen Therapy Summary of Care Provided Yes Patient was provided information on Yes accessing patient portal Level Of Consciousness Awake Alert Appropriate Follows Commands Eating (Feeding) Ability Independent Bathing Ability 1 Person Assist Upper Body Dressing Ability Minimum Assistance Lower Body Dressing Ability Moderate Assistance Ambulation Ability 1 Person Assist Toileting Ability Minimum Assistance Date of Last Bowel Movement 02/03/17 Bowel Continent Bladder Continent Has Patient Been in Isolation During Yes Hospital Stay Isolation Contact Doctor's Appointment Made Yes Referrals Made Yes Patient Education Given Yes Discharge Instructions Given To Patient Spouse Discharge Instructions Address Activity Diet Weight Measures Medications Symptoms Worsening Follow Up Problems Patient instructed regarding new Yes medications and to provide the list to their Primary Care Provider Patient instructed to carry their Yes medication list with them at all times in case of emergency Prescriptions Given To Patient Spouse Was patient discharged on Warfarin for No confirmed VTE diagnosis? Was patient discharged with diagnosis of No ischemic or hemmorrhagic stroke? Flu Vaccine Given No Reason Flu Vaccine Not Given Previously Received Current Flu Season Vaccine administration documented on No EMAR Nursing Summary Patient admitted for shortness of breath, ascities, and pneumonia. Patient discharged with PICC in right upper arm, oxygen therapy at 3L at home, to receive home health care, coccyx is escoriated with Allevyn covering effected area . ED Discharge Assessment Start: 01/29/17 20: 31 Freq: Status: Discharge Document 01/30/17 01:31 NNN (Rec: 01/30/17 01:32 NNN [id number]) ED Discharge Assessment ED Discharge Disposition Admitted ED Condition on Discharge Serious Med Rec/Patient Pharmacy Completed? No: ED busy Admitted to 2NE Bed assigned 2NE23 Transported by plastic technician Transported with monitor oxygen IV Report given to Nurse Care transferred to (name/credentials) Lynsey RN Information relayed patient's care treatments medications given condition recent/anticipated changes Clinical Documentation Summary Provided Yes Pain Scale 0 Pain Scale Used Standard (1-10) Blood Pressure 113/79 Heart rate 71 Respiratory Rate 18 Oxygen Delivery Nasal Cannula Oxygen Saturation 96 Critical Care Minutes 0 ED Pain Assessment Start: 01/29/17 20: 31 Freq: Status: Complete Document 01/29/17 20:46 NNN (Rec: 01/29/17 20:47 NNN [id number]) Pain Assessment Pain Present Reports No Pain ED Shortness of Breath Assessment Start: 01/29/17 20: 31 Freq: Status: Complete Document 01/29/17 20:34 NNN (Rec: 01/29/17 20:46 NNN [id number]) Shortness of Breath Sepsis Infection Criteria Present suspected infection Sepsis SIRS Criteria none Sepsis Screen No Definite Risk Sepsis Action Taken no action required Symptoms/Complaint Shortness of Breath Cough Duration Constant Severity Moderate Context Recent Illness Known History COPD Improves With Oxygen Worsens With Nothing Treatment Prior to Arrival Oxygen Respiratory Depth Normal Effort Normal for Patient Non-Labored Pattern Regular Cough Description Involuntary Productive Frequency Continuous Level Of Consciousness Drowsy Patient Orientation Person Place Time Patient Behavior Appropriate Cooperative Ability to Follow Directions Excellent Impaired Cognition No Skin Temperature Warm Skin Moisture Dry Skin Turgor Normal EPIV (Powerglide Insertion) Start: 01/30/17 11: 09 Freq: .once Status: Complete Document 01/30/17 13:44 JDS (Rec: 01/30/17 13:46 JDS [id number]) EPIV Insertion Procedure Start Time 13:10 Lidocaine 1% Administered Intradermal 5 for Local Anesthesia (ML) ICU Staff EPIV Charge* Yes EPIV Insertion Checklist Prep the EPIV Site apply chloraprep to the skin using a back and forth scrubbing motion apply chloraprep for 30 seconds allow prep to dry During the Procedure clinician is wearing sterile gloves during insertion sterile field and sterile technique are maintained After the Procedure guidewire removed and visualized sterile technique is used to apply the dressing dressing is dated patient provided with education on EPIV infection prevention Name of Clinician Inserting EPIV RENA Earl Clinician Assisting/Completing Checklist Bay Yang RN Date 01/30/17 Time 14:46 Environmental safety management Start: 01/30/17 04: 13 Freq: Q12H Status: Complete Document 01/31/17 08:00 KMS (Rec: 01/31/17 11:[address] [facility] [id number]) Document 01/31/17 14:53 CARLIE (Rec: 01/31/17 15:28 CARLIE [id number]) Document 02/01/17 01:18 JLK (Rec: 02/01/17 01:18 JLK [id number]) Document 02/01/17 08:00 KMS (Rec: 02/01/17 11:[address] [facility] [id number]) Fall Precautions Acute Start: 01/30/17 01: 58 Freq: Q12H Status: Discharge Document 01/30/17 02:32 ALS (Rec: 01/30/17 02:37 ALS [id number]) [facility] Fall Risk Assessment Tool High Fall Risk-Implement High Fall Risk History of more than one fall interventions per protocol within 6 months before admission Fall Risk Category High Risk Fall Risk Interventions Low Risk Interventions Bed in lowest position Top side rails up x 2 Secure brake on bed Use properly fitting non-skid footwear Call light and frequently needed objects within reach Encourage patients/families to call for assistance when needed Fall education including risk assessment, injury risk and routine/ Inspect environment for safety and communication risk Supervise and assist with toileting/ADLs as needed Moderate Risk Interventions Institue fall-risk tooklit ( yellow flag, yellow non-skid socks and Frequent reorientation for confused patients High Risk Interventions Activate bed/chair exit Move patient to room with best visual access Fall Precautions Acute Start: 01/30/17 03: 47 Freq: q12h Status: Discharge Document 01/30/17 04:03 ALS (Rec: 01/30/17 04:12 ALS [id number]) [facility] Fall Risk Assessment Tool Age less than60 years age (0 points) Fall History No falls within last 6 months (0 points) Elimination, Bowel, and Urine Incontinence (2 points) Medications: Includes RELIGIOUS ACTIVITIES DIRECTOR/opiates, N/A (0 points) antivulsants, ant-hypertensives, diuretics, hypnotics, Patient Care Equipment: Any equipment Two present (2 points) that tethers patient (e.g. IV infusions, chest tube, indwelling Mobility Requires assistance or supervision for transfer/ ambulation (2 points) Unsteady gait (2 points) Cognition N/A (0 points) Total Fall Risk Score 8 Fall Risk Category Moderate Risk (6-13) Fall Risk Interventions Low Risk Interventions Bed in lowest position Top side rails up x 2 Secure brake on bed Use properly fitting non-skid footwear Call light and frequently needed objects within reach Encourage patients/families to call for assistance when needed Fall education including risk assessment, injury risk and routine/ Inspect environment for safety and communication risk Supervise and assist with toileting/ADLs as needed Moderate Risk Interventions Institue fall-risk tooklit ( yellow flag, yellow non-skid socks and Frequent reorientation for confused patients High Risk Interventions Activate bed/chair exit Move patient to room with best visual access Fall Precautions Acute Start: 01/30/17 09: 39 Freq: Q12H Status: Discharge Document 01/30/17 09:44 [facility] (Rec: 01/30/17 10:23 [facility] [id number]) [facility] Fall Risk Assessment Tool High Fall Risk-Implement High Fall Risk History of more than one fall interventions per protocol within 6 months before admission Fall Risk Category High Risk Fall Risk Interventions Low Risk Interventions Bed in lowest position Top side rails up x 2 Secure brake on bed Use properly fitting non-skid footwear Call light and frequently needed objects within reach Encourage patients/families to call for assistance when needed Fall education including risk assessment, injury risk and routine/ Inspect environment for safety and communication risk Supervise and assist with toileting/ADLs as needed Moderate Risk Interventions Institue fall-risk tooklit ( yellow flag, yellow non-skid socks and Frequent reorientation for confused patients High Risk Interventions Activate bed/chair exit Move patient to room with best visual access Document 01/30/17 21:10 SAG (Rec: 01/30/17 22:32 SAG [id number]) [facility] Fall Risk Assessment Tool High Fall Risk-Implement High Fall Risk History of more than one fall interventions per protocol within 6 months before admission Fall Risk Category High Risk Fall Risk Interventions Low Risk Interventions Bed in lowest position Top side rails up x 2 Secure brake on bed Use properly fitting non-skid footwear Call light and frequently needed objects within reach Encourage patients/families to call for assistance when needed Fall education including risk assessment, injury risk and routine/ Inspect environment for safety and communication risk Supervise and assist with toileting/ADLs as needed Moderate Risk Interventions Institue fall-risk tooklit ( yellow flag, yellow non-skid socks and Frequent reorientation for confused patients Document 01/31/17 08:00 KMS (Rec: 01/31/17 11:55 KMS [id number]) [facility] Fall Risk Assessment Tool High Fall Risk-Implement High Fall Risk History of more than one fall interventions per protocol within 6 months before admission Fall Risk Category High Risk Fall Risk Interventions Low Risk Interventions Bed in lowest position Top side rails up x 2 Secure brake on bed Use properly fitting non-skid footwear Call light and frequently needed objects within reach Encourage patients/families to call for assistance when needed Fall education including risk assessment, injury risk and routine/ Inspect environment for safety and communication risk Supervise and assist with toileting/ADLs as needed Moderate Risk Interventions Institue fall-risk tooklit ( yellow flag, yellow non-skid socks and Frequent reorientation for confused patients High Risk Interventions Activate bed/chair exit Move patient to room with best visual access Document 01/31/17 20:59 JLK (Rec: 02/01/17 00:52 JLK [id number]) [facility] Fall Risk Assessment Tool High Fall Risk-Implement High Fall Risk History of more than one fall interventions per protocol within 6 months before admission Fall Risk Category High Risk Fall Risk Interventions Low Risk Interventions Bed in lowest position Top side rails up x 2 Secure brake on bed Use properly fitting non-skid footwear Call light and frequently needed objects within reach Encourage patients/families to call for assistance when needed Fall education including risk assessment, injury risk and routine/ Inspect environment for safety and communication risk Supervise and assist with toileting/ADLs as needed Moderate Risk Interventions Institue fall-risk tooklit ( yellow flag, yellow non-skid socks and Frequent reorientation for confused patients High Risk Interventions Activate bed/chair exit Move patient to room with best visual access Document 02/01/17 08:00 KMS (Rec: 02/01/17 11:16 KMS [id number]) [facility] Fall Risk Assessment Tool High Fall Risk-Implement High Fall Risk History of more than one fall interventions per protocol within 6 months before admission Fall Risk Category High Risk Fall Risk Interventions Low Risk Interventions Bed in lowest position Top side rails up x 2 Secure brake on bed Use properly fitting non-skid footwear Call light and frequently needed objects within reach Encourage patients/families to call for assistance when needed Fall education including risk assessment, injury risk and routine/ Inspect environment for safety and communication risk Supervise and assist with toileting/ADLs as needed Moderate Risk Interventions Institue fall-risk tooklit ( yellow flag, yellow non-skid socks and Frequent reorientation for confused patients High Risk Interventions Remain with patient while toileting Activate bed/chair exit Move patient to room with best visual access Document 02/01/17 20:37 JCL (Rec: 02/01/17 22:02 JCL [id number]) [facility] Fall Risk Assessment Tool High Fall Risk-Implement High Fall Risk History of more than one fall interventions per protocol within 6 months before admission Fall Risk Category High Risk Fall Risk Interventions Low Risk Interventions Bed in lowest position Top side rails up x 2 Secure brake on bed Use properly fitting non-skid footwear Call light and frequently needed objects within reach Encourage patients/families to call for assistance when needed Fall education including risk assessment, injury risk and routine/ Inspect environment for safety and communication risk Supervise and assist with toileting/ADLs as needed Moderate Risk Interventions Institue fall-risk tooklit ( yellow flag, yellow non-skid socks and High Risk Interventions Remain with patient while toileting Move patient to room with best visual access Document 02/02/17 09:04 CAM (Rec: 02/02/17 09:09 CAM [id number]) [facility] Fall Risk Assessment Tool High Fall Risk-Implement High Fall Risk History of more than one fall interventions per protocol within 6 months before admission Fall Risk Category High Risk Fall Risk Interventions Low Risk Interventions Bed in lowest position Top side rails up x 2 Secure brake on bed Use properly fitting non-skid footwear Call light and frequently needed objects within reach Encourage patients/families to call for assistance when needed Fall education including risk assessment, injury risk and routine/ Inspect environment for safety and communication risk Supervise and assist with toileting/ADLs as needed Moderate Risk Interventions Institue fall-risk tooklit ( yellow flag, yellow non-skid socks and High Risk Interventions Remain with patient while toileting Move patient to room with best visual access Document 02/02/17 19:52 JCL (Rec: 02/02/17 21:43 JCL [id number]) [facility] Fall Risk Assessment Tool High Fall Risk-Implement High Fall Risk History of more than one fall interventions per protocol within 6 months before admission Fall Risk Category High Risk Fall Risk Interventions Low Risk Interventions Bed in lowest position Top side rails up x 2 Secure brake on bed Use properly fitting non-skid footwear Call light and frequently needed objects within reach Encourage patients/families to call for assistance when needed Fall education including risk assessment, injury risk and routine/ Inspect environment for safety and communication risk Supervise and assist with toileting/ADLs as needed Moderate Risk Interventions Institue fall-risk tooklit ( yellow flag, yellow non-skid socks and High Risk Interventions Remain with patient while toileting Move patient to room with best visual access Document 02/03/17 07:20 CARLIE (Rec: 02/03/17 08:00 CARLIE [facility]) [facility] Fall Risk Assessment Tool High Fall Risk-Implement High Fall Risk History of more than one fall interventions per protocol within 6 months before admission Fall Risk Category High Risk Fall Risk Interventions Low Risk Interventions Bed in lowest position Top side rails up x 2 Secure brake on bed Use properly fitting non-skid footwear Call light and frequently needed objects within reach Encourage patients/families to call for assistance when needed Fall education including risk assessment, injury risk and routine/ Inspect environment for safety and communication risk Supervise and assist with toileting/ADLs as needed Moderate Risk Interventions Institue fall-risk tooklit ( yellow flag, yellow non-skid socks and High Risk Interventions Remain with patient while toileting Move patient to room with best visual access Flu Vaccine Screen Start: 01/30/17 01: 14 Freq: Status: Discharge Document 02/03/17 10:49 CARLIE (Rec: 02/03/17 10:56 CARLIE [facility]) Flu Vaccine Screen Influenza vaccine indications 6 months of age or older Flu Vaccine Contraindications Previously Received Current Flu Season Vaccine Information Sheet Given(Version Yes 07/04/2015) Patient meets criteria for vaccination No and consents to receive it Glucose, blood point of care measurement Start: 01/29/17 20: 51 Freq: .ONCE Status: Discharge Document 01/30/17 02:52 WJS (Rec: 01/30/17 03:00 WJS [id number]) Blood Glucose Assessment Blood Glucose* 163 Action Taken RN Notified Glucose, blood point of care measurement Start: 01/31/17 12: 26 Freq: .ACHS Status: Discharge Document 02/01/17 16:05 LE (Rec: 02/01/17 16:05 LE [id number]) Blood Glucose Assessment Blood Glucose* 294 Action Taken informed nurse Document 02/01/17 20:26 JNG (Rec: 02/01/17 20:30 JNG [id number]) Blood Glucose Assessment Blood Glucose* 280 Hygiene activity Start: 01/30/17 01: 58 Freq: .PRN Status: Discharge Document 01/31/17 15:02 MAB (Rec: 01/31/17 15:03 MAB [id number]) Hygiene Bath Type Full Bed Bath Bathing Ability Moderate Assistance Barrera Care Completed By Staff Linen Change Complete Document 02/03/17 10:22 LE (Rec: 02/03/17 10:23 LE [id number]) Hygiene Bath Type Partial Bed Bath Bathing Ability 1 Person Assist Barrera Care Completed By N/A Linen Change Partial IV-Invasive Line Management Start: 01/30/17 01: 58 Freq: Q4H Status: Discharge Document 01/30/17 02:32 ALS (Rec: 01/30/17 02:37 ALS [id number]) IV/Invasive Line Assessment Right Upper Arm Basilic Vein Reason for Line Insertion/Rationale for Provide Access for IV Insertion Medication(s) Provide Access for Emergency IV Catheter Type PICC Line Site Observation Patent Site Observation Intervention Inspected Line Dressing Applied Transparent Dressing Securement Device/Sutures Intact Chlorhexidine Gluconate Impregnated Disc Line Care Saline Flush P-Locked Cap(s) Changed Securement Device in Place Labs drawn from Line* No Document 01/30/17 04:03 ALS (Rec: 01/30/17 04:12 ALS [id number]) IV/Invasive Line Assessment Right Upper Arm Basilic Vein Reason for Line Insertion/Rationale for Provide Access for IV Insertion Medication(s) Provide Access for Emergency IV Catheter Type PICC Line Site Observation Patent Site Observation Intervention Inspected Line Dressing Applied Transparent Dressing Securement Device/Sutures Intact Chlorhexidine Gluconate Impregnated Disc Dry/Intact Date Dressing Last Changed 01/30/17 Line Care P-Locked Dressing Changed Securement Device in Place Labs drawn from Line* No Document 01/30/17 04:56 ALS (Rec: 01/30/17 04:57 ALS [id number]) IV/Invasive Line Assessment Right Upper Arm Basilic Vein Reason for Line Insertion/Rationale for Provide Access for IV Insertion Medication(s) Provide Access for Emergency IV Catheter Type PICC Line Site Observation Patent Site Observation Intervention Inspected Line Dressing Applied Transparent Dressing Securement Device/Sutures Intact Chlorhexidine Gluconate Impregnated Disc Dry/Intact Date Dressing Last Changed 01/30/17 Line Care Saline Flush P-Locked Securement Device in Place Check Blood Return Labs drawn from Line* Yes Document 01/30/17 09:44 [facility] (Rec: 01/30/17 10:23 [facility] [id number]) IV/Invasive Line Assessment Right Upper Arm Basilic Vein Reason for Line Insertion/Rationale for Provide Access for IV Insertion Medication(s) Provide Access for Emergency IV Catheter Type PICC Line Site Observation Patent Site Observation Intervention Inspected Line Dressing Applied Transparent Dressing Securement Device/Sutures Intact Chlorhexidine Gluconate Impregnated Disc Dry/Intact Date Dressing Last Changed 01/30/17 Line Care Saline Flush P-Locked Dressing Changed Securement Device in Place Check Blood Return Labs drawn from Line* Yes Document 01/30/17 11:39 [facility] (Rec: 01/30/17 11:48 [facility] [id number]) IV/Invasive Line Assessment Right Upper Arm Basilic Vein Reason for Line Insertion/Rationale for Provide Access for IV Insertion Medication(s) Provide Access for Emergency IV Catheter Type PICC Line Site Observation Patent [place] Site Observation Intervention Inspected Line Dressing Applied Transparent Dressing Securement Device/Sutures Intact Chlorhexidine Gluconate Impregnated Disc Dry/Intact Date Dressing Last Changed 01/30/17 Line Care Saline Flush Securement Device in Place Check Blood Return Labs drawn from Line* Yes Document 01/30/17 13:44 J (Rec: 01/30/17 13:46 J [id number]) IV/Invasive Line Assessment Left Basilic Vein Gauge (gauge) 18 IV Catheter Type Extended Peripheral IV Site Observation Patent [place] Site Observation Intervention [place] IV Inserted Dressing Applied Window Dressing Line Care Saline Flush P-Locked Securement Device in Place Check Blood Return Labs drawn from Line* No Document 01/30/17 17:11 [facility] (Rec: 01/30/17 17:17 [facility] [id number]) IV/Invasive Line Assessment Left Basilic Vein Gauge (gauge) 18 IV Catheter Type Extended Peripheral IV Site Observation Patent [place] Site Observation Intervention [place] IV Inserted Dressing Applied Window Dressing Line Care Saline Flush Securement Device in Place Check Blood Return Right Upper Arm Basilic Vein Reason for Line Insertion/Rationale for Provide Access for IV Insertion Medication(s) Provide Access for Emergency IV Catheter Type PICC Line Site Observation Patent [place] Site Observation Intervention Inspected Line Dressing Applied Transparent Dressing Securement Device/Sutures Intact Chlorhexidine Gluconate Impregnated Disc Dry/Intact Date Dressing Last Changed 01/30/17 Line Care Saline Flush Securement Device in Place Labs drawn from Line* Yes Document 01/30/17 21:10 [facility] (Rec: 01/30/17 22:32 [id number] IV/Invasive Line Assessment Left Basilic Vein Gauge (gauge) 18 IV Catheter Type Extended Peripheral IV Site Observation Patent [place] Site Observation Intervention [place] IV Inserted Dressing Applied Window Dressing Line Care Saline Flush P-Locked Securement Device in Place Check Blood Return Right Upper Arm Basilic Vein Reason for Line Insertion/Rationale for Provide Access for IV Insertion Medication(s) Provide Access for Emergency IV Catheter Type PICC Line Site Observation Patent [place] Site Observation Intervention Inspected Line Dressing Applied Transparent Dressing Securement Device/Sutures Intact Chlorhexidine Gluconate Impregnated Disc Dry/Intact Date Dressing Last Changed 01/30/17 Line Care Saline Flush Securement Device in Place Labs drawn from Line* Yes Document 01/31/17 00:00 SAG (Rec: 01/31/17 01:04 [id number]) IV/Invasive Line Assessment Left Basilic Vein Gauge (gauge) 18 IV Catheter Type Extended Peripheral IV Site Observation Patent [place] Site Observation Intervention Inspected Line Dressing Applied Window Dressing Dry/Intact Line Care Saline Flush P-Locked Securement Device in Place Check Blood Return Right Upper Arm Basilic Vein Reason for Line Insertion/Rationale for Provide Access for IV Insertion Medication(s) Provide Access for Emergency IV Catheter Type PICC Line Site Observation Patent [place] Site Observation Intervention Inspected Line Dressing Applied Transparent Dressing Securement Device/Sutures Intact Chlorhexidine Gluconate Impregnated Disc Dry/Intact Date Dressing Last Changed 01/30/17 Line Care Saline Flush Securement Device in Place Labs drawn from Line* Yes Document 01/31/17 05:02 SAG (Rec: 01/31/17 05:09 SAG [id number]) IV/Invasive Line Assessment Left Basilic Vein Gauge (gauge) 18 IV Catheter Type Extended Peripheral IV Site Observation Patent [place] Site Observation Intervention Inspected Line Dressing Applied Window Dressing Dry/Intact Line Care Saline Flush P-Locked Securement Device in Place Check Blood Return Right Upper Arm Basilic Vein Reason for Line Insertion/Rationale for Provide Access for IV Insertion Medication(s) Provide Access for Emergency IV Catheter Type PICC Line Site Observation Patent [place] Site Observation Intervention Inspected Line Dressing Applied Transparent Dressing Securement Device/Sutures Intact Chlorhexidine Gluconate Impregnated Disc Dry/Intact Date Dressing Last Changed 01/30/17 Line Care Saline Flush Securement Device in Place Document 01/31/17 08:00 KMS (Rec: 01/31/17 11:55 KMS [id number]) IV/Invasive Line Assessment Left Basilic Vein Date of Insertion 01/30/17 Reason for Line Insertion/Rationale for Provide Access for IV Insertion Medication(s) Provide Access for Blood Provide Access for Emergency Comment Naun labs, started IV ATB Gauge (gauge) 18 IV Catheter Type Extended Peripheral IV Site Observation Patent [place] Site Observation Intervention Inspected Line Dressing Applied Window Dressing Dry/Intact Date Dressing Last Changed 01/30/17 Line Care Saline Flush P-Locked Securement Device in Place Check Blood Return Right Upper Arm Basilic Vein Reason for Line Insertion/Rationale for Provide Access for IV Insertion Medication(s) Provide Access for Emergency Financial Writer IV Medication Comment Present on admission; Zosyn running IV Catheter Type PICC Line Site Observation Patent [place] Site Observation Intervention Inspected Line Dressing Applied Transparent Dressing Securement Device/Sutures Intact Chlorhexidine Gluconate Impregnated Disc Dry/Intact Date Dressing Last Changed 01/30/17 Line Care Saline Flush Securement Device in Place Labs drawn from Line* Yes Document 01/31/17 14:53 CARLIE (Rec: 01/31/17 15:28 CARLIE [id number]) IV/Invasive Line Assessment Left Basilic Vein Date of Insertion 01/30/17 Reason for Line Insertion/Rationale for Provide Access for IV Insertion Medication(s) Provide Access for Blood Provide Access for Emergency Gauge (gauge) 18 IV Catheter Type Extended Peripheral IV Site Observation Patent [place] Site Observation Intervention Inspected Line Dressing Applied Window Dressing Dry/Intact Date Dressing Last Changed 01/30/17 Line Care Saline Flush P-Locked Securement Device in Place Check Blood Return Right Upper Arm Basilic Vein Reason for Line Insertion/Rationale for Provide Access for IV Insertion Medication(s) Provide Access for Emergency Halfway IV Medication IV Catheter Type PICC Line Site Observation Patent [place] Site Observation Intervention Inspected Line Dressing Applied Transparent Dressing Securement Device/Sutures Intact Chlorhexidine Gluconate Impregnated Disc Dry/Intact Date Dressing Last Changed 01/30/17 Line Care Saline Flush Securement Device in Place Labs drawn from Line* No Document 01/31/17 20:59 JLK (Rec: 02/01/17 00:52 JLK [id number]) IV/Invasive Line Assessment Left Basilic Vein Reason for Line Insertion/Rationale for Provide Access for IV Insertion Medication(s) Provide Access for Blood Provide Access for Emergency Gauge (gauge) 18 IV Catheter Type Extended Peripheral IV Site Observation Patent [place] Site Observation Intervention Inspected Line Dressing Applied Window Dressing Dry/Intact Line Care Saline Flush P-Locked Securement Device in Place Check Blood Return Right Upper Arm Basilic Vein Reason for Line Insertion/Rationale for Provide Access for IV Insertion Medication(s) Provide Access for Emergency Financial Writer IV Medication IV Catheter Type PICC Line Site Observation Patent [place] Site Observation Intervention Inspected Line Dressing Applied Transparent Dressing Securement Device/Sutures Intact Chlorhexidine Gluconate Impregnated Disc Dry/Intact Line Care Saline Flush Securement Device in Place Labs drawn from Line* No Document 02/01/17 00:01 JLK (Rec: 02/01/17 02:34 JLK [id number]) IV/Invasive Line Assessment Left Basilic Vein Reason for Line Insertion/Rationale for Provide Access for IV Insertion Medication(s) Provide Access for Emergency Gauge (gauge) 18 IV Catheter Type Extended Peripheral IV Site Observation Patent [place] Site Observation Intervention Inspected Line Dressing Applied Window Dressing Transparent Dressing Dry/Intact Line Care Saline Flush P-Locked Securement Device in Place Right Upper Arm Basilic Vein Reason for Line Insertion/Rationale for Provide Access for IV Insertion Medication(s) Provide Access for Emergency Financial Writer IV Medication IV Catheter Type PICC Line Site Observation Patent [place] Dressing Applied Transparent Dressing Securement Device/Sutures Intact Chlorhexidine Gluconate Impregnated Disc Dry/Intact Line Care Saline Flush P-Locked Securement Device in Place Labs drawn from Line* No Document 02/01/17 04:15 JLK (Rec: 02/01/17 04:22 JLK [id number]) IV/Invasive Line Assessment Left Basilic Vein Reason for Line Insertion/Rationale for Provide Access for IV Insertion Medication(s) Provide Access for Emergency Gauge (gauge) 18 IV Catheter Type Extended Peripheral IV Site Observation Patent [place] Site Observation Intervention Inspected Line Dressing Applied Window Dressing Transparent Dressing Dry/Intact Line Care Saline Flush P-Locked Securement Device in Place Right Upper Arm Basilic Vein Reason for Line Insertion/Rationale for Provide Access for IV Insertion Medication(s) Provide Access for Emergency Financial Writer IV Medication IV Catheter Type PICC Line Site Observation Patent [place] Site Observation Intervention Inspected Line Dressing Applied Transparent Dressing Securement Device/Sutures Intact Chlorhexidine Gluconate Impregnated Disc Dry/Intact Line Care Saline Flush P-Locked Securement Device in Place Labs drawn from Line* Yes Document 02/01/17 08:00 KMS (Rec: 02/01/17 11:[address] [facility] [id number]) IV/Invasive Line Assessment Left Basilic Vein Reason for Line Insertion/Rationale for Provide Access for IV Insertion Medication(s) Provide Access for Emergency Comment p-locked Gauge (gauge) 18 IV Catheter Type Extended Peripheral IV Site Observation Patent [place] Site Observation Intervention Inspected Line Dressing Applied Window Dressing Transparent Dressing Dry/Intact Line Care Saline Flush Securement Device in Place Right Upper Arm Basilic Vein Reason for Line Insertion/Rationale for Provide Access for IV Insertion Medication(s) Provide Access for Emergency Financial Writer IV Medication Comment Zosyn running at 25 ml/hr IV Catheter Type PICC Line Site Observation Patent [place] Site Observation Intervention Inspected Line Dressing Applied Transparent Dressing Securement Device/Sutures Intact Chlorhexidine Gluconate Impregnated Disc Dry/Intact Line Care Saline Flush P-Locked Securement Device in Place Check Blood Return Labs drawn from Line* Yes Document 02/01/17 10:30 KMS (Rec: 02/01/17 10:54 KMS [facility]) IV/Invasive Line Assessment Left Basilic Vein Reason for Line Insertion/Rationale for Provide Access for IV Insertion Medication(s) Provide Access for Emergency Comment Leaking; IV team notified. To be replaced Gauge (gauge) 18 IV Catheter Type Extended Peripheral IV Site Observation Oc[place] Site Observation Intervention IV Removed by Provider Inspected Line Dressing Applied Window Dressing Transparent Dressing Dry/Intact Line Care Saline Flush Securement Device in Place Line Complications Occlusion Right Upper Arm Basilic Vein Reason for Line Insertion/Rationale for Provide Access for IV Insertion Medication(s) Provide Access for Emergency Financial Writer IV Medication Comment Zosyn complete. Switched to Levaquin. Naun Lactic acid labs IV Catheter Type PICC Line Site Observation Patent [place] Site Observation Intervention Inspected Line Dressing Applied Transparent Dressing Securement Device/Sutures Intact Chlorhexidine Gluconate Impregnated Disc Dry/Intact Line Care Saline Flush P-Locked Securement Device in Place Check Blood Return Labs drawn from Line* Yes Document 02/01/17 12:26 KMS (Rec: 02/01/17 12:[address] [facility] [id number]) IV/Invasive Line Assessment Right Upper Arm Basilic Vein Reason for Line Insertion/Rationale for Provide Access for IV Insertion Medication(s) Provide Access for Emergency Halfway IV Medication Comment PRBCs started IV Catheter Type PICC Line Site Observation Patent [place] Site Observation Intervention Inspected Line Dressing Applied Transparent Dressing Securement Device/Sutures Intact Chlorhexidine Gluconate Impregnated Disc Dry/Intact Line Care Saline Flush P-Locked Securement Device in Place Labs drawn from Line* No Document 02/01/17 15:02 KMS (Rec: 02/01/17 15:[address] [facility] [id number]) IV/Invasive Line Assessment Right Upper Arm Basilic Vein Reason for Line Insertion/Rationale for Provide Access for IV Insertion Medication(s) Provide Access for Emergency Halfway IV Medication Comment PRBC complete, vanc level drawn, start second PRBC IV Catheter Type PICC Line Site Observation Patent [place] Site Observation Intervention Inspected Line Dressing Applied Transparent Dressing Securement Device/Sutures Intact Chlorhexidine Gluconate Impregnated Disc Dry/Intact Date Dressing Last Changed 01/30/17 Line Care Saline Flush P-Locked Securement Device in Place Check Blood Return Labs drawn from Line* Yes Document 02/01/17 20:37 JCL (Rec: 02/01/17 22:02 JCL [id number]) IV/Invasive Line Assessment Right Upper Arm Basilic Vein Reason for Line Insertion/Rationale for Provide Access for IV Insertion Medication(s) Provide Access for Emergency Halfway IV Medication Comment PRBC complete, vanc level drawn, start second PRBC Catheter Length (External) (cm) 4 Number of Lumens 1 IV Catheter Type PICC Line Site Observation Patent [place] Site Observation Intervention Inspected Line Dressing Applied Transparent Dressing Securement Device/Sutures Intact Chlorhexidine Gluconate Impregnated Disc Dry/Intact Date Dressing Last Changed 01/30/17 Line Care Saline Flush Securement Device in Place Check Blood Return Labs drawn from Line* No Document 02/02/17 00:10 JCL (Rec: 02/02/17 00:27 JCL [id number]) IV/Invasive Line Assessment Right Upper Arm Basilic Vein Reason for Line Insertion/Rationale for Provide Access for IV Insertion Medication(s) Provide Access for Emergency Financial Writer IV Medication Comment PRBC complete, vanc level drawn, start second PRBC Catheter Length (External) (cm) 4 Number of Lumens 1 IV Catheter Type PICC Line Site Observation Patent [place] Site Observation Intervention Inspected Line Dressing Applied Transparent Dressing Securement Device/Sutures Intact Chlorhexidine Gluconate Impregnated Disc Dry/Intact Date Dressing Last Changed 01/30/17 Line Care Saline Flush P-Locked Securement Device in Place Check Blood Return Labs drawn from Line* No Document 02/02/17 04:37 JCL (Rec: 02/02/17 05:10 JCL [id number]) IV/Invasive Line Assessment Right Upper Arm Basilic Vein Reason for Line Insertion/Rationale for Provide Access for IV Insertion Medication(s) Provide Access for Emergency Financial Writer IV Medication Comment PRBC complete, vanc level drawn, start second PRBC Catheter Length (External) (cm) 4 Number of Lumens 1 IV Catheter Type PICC Line Site Observation Patent [place] Site Observation Intervention Inspected Line Dressing Applied Transparent Dressing Securement Device/Sutures Intact Chlorhexidine Gluconate Impregnated Disc Dry/Intact Date Dressing Last Changed 01/30/17 Line Care Saline Flush Securement Device in Place Check Blood Return Labs drawn from Line* Yes Document 02/02/17 09:04 CAM (Rec: 02/02/17 09:09 CAM [id number]) IV/Invasive Line Assessment Right Upper Arm Basilic Vein Reason for Line Insertion/Rationale for Provide Access for IV Insertion Medication(s) Provide Access for Emergency Halfway IV Medication Comment PRBC complete, vanc level drawn, start second PRBC Catheter Length (External) (cm) 4 Number of Lumens 1 IV Catheter Type PICC Line Site Observation Patent [place] Site Observation Intervention Inspected Line Dressing Applied Transparent Dressing Securement Device/Sutures Intact Chlorhexidine Gluconate Impregnated Disc Dry/Intact Date Dressing Last Changed 01/30/17 Line Care Saline Flush Securement Device in Place Check Blood Return Labs drawn from Line* Yes Document 02/02/17 12:26 CAM (Rec: 02/02/17 12:30 CAM [id number]) IV/Invasive Line Assessment Right Upper Arm Basilic Vein Reason for Line Insertion/Rationale for Provide Access for IV Insertion Medication(s) Provide Access for Emergency Financial Writer IV Medication Comment PRBC complete, vanc level drawn, start second PRBC Catheter Length (External) (cm) 4 Number of Lumens 1 IV Catheter Type PICC Line Site Observation Patent [place] Site Observation Intervention Inspected Line Dressing Applied Transparent Dressing Securement Device/Sutures Intact Chlorhexidine Gluconate Impregnated Disc Dry/Intact Date Dressing Last Changed 01/30/17 Line Care Saline Flush Securement Device in Place Check Blood Return Labs drawn from Line* Yes Document 02/02/17 17:13 CAM (Rec: 02/02/17 17:15 CAM [id number]) IV/Invasive Line Assessment Right Upper Arm Basilic Vein Reason for Line Insertion/Rationale for Provide Access for IV Insertion Medication(s) Provide Access for Emergency Halfway IV Medication Catheter Length (External) (cm) 4 Number of Lumens 1 IV Catheter Type PICC Line Site Observation Patent [place] Site Observation Intervention Inspected Line Dressing Applied Transparent Dressing Securement Device/Sutures Intact Chlorhexidine Gluconate Impregnated Disc Dry/Intact Date Dressing Last Changed 01/30/17 Line Care Saline Flush Securement Device in Place Check Blood Return Labs drawn from Line* Yes Document 02/02/17 19:52 JCL (Rec: 02/02/17 21:43 JCL [id number]) IV/Invasive Line Assessment Right Upper Arm Basilic Vein Reason for Line Insertion/Rationale for Provide Access for IV Insertion Medication(s) Provide Access for Emergency Financial Writer IV Medication Catheter Length (External) (cm) 4 Number of Lumens 1 IV Catheter Type PICC Line Site Observation Patent [place] Site Observation Intervention Inspected Line Dressing Applied Transparent Dressing Securement Device/Sutures Intact Chlorhexidine Gluconate Impregnated Disc Dry/Intact Date Dressing Last Changed 01/30/17 Line Care Saline Flush P-Locked Securement Device in Place Check Blood Return Labs drawn from Line* No Document 02/03/17 00:20 JCL (Rec: 02/03/17 00:49 JCL [id number]) IV/Invasive Line Assessment Right Upper Arm Basilic Vein Reason for Line Insertion/Rationale for Provide Access for IV Insertion Medication(s) Provide Access for Emergency Financial Writer IV Medication Catheter Length (External) (cm) 4 Number of Lumens 1 IV Catheter Type PICC Line Site Observation Patent [place] Site Observation Intervention Inspected Line Dressing Applied Transparent Dressing Securement Device/Sutures Intact Chlorhexidine Gluconate Impregnated Disc Dry/Intact Date Dressing Last Changed 01/30/17 Line Care P-Locked Securement Device in Place Labs drawn from Line* No Document 02/03/17 04:14 JCL (Rec: 02/03/17 04:40 JCL [id number]) IV/Invasive Line Assessment Right Upper Arm Basilic Vein Reason for Line Insertion/Rationale for Provide Access for IV Insertion Medication(s) Provide Access for Emergency Financial Writer IV Medication Catheter Length (External) (cm) 4 Number of Lumens 1 IV Catheter Type PICC Line Site Observation Patent [place] Site Observation Intervention Inspected Line Dressing Applied Transparent Dressing Securement Device/Sutures Intact Chlorhexidine Gluconate Impregnated Disc Dry/Intact Date Dressing Last Changed 01/30/17 Line Care Saline Flush P-Locked Securement Device in Place Check Blood Return Labs drawn from Line* Yes Document 02/03/17 07:20 CARLIE (Rec: 02/03/17 08:00 CARLIE [id number]) IV/Invasive Line Assessment Right Upper Arm Basilic Vein Reason for Line Insertion/Rationale for Provide Access for IV Insertion Medication(s) Provide Access for Emergency Financial Writer IV Medication Catheter Length (External) (cm) 4 Number of Lumens 1 IV Catheter Type PICC Line Site Observation Patent [place] Site Observation Intervention Inspected Line Dressing Applied Transparent Dressing Securement Device/Sutures Intact Chlorhexidine Gluconate Impregnated Disc Dry/Intact Date Dressing Last Changed 01/30/17 Line Care Saline Flush P-Locked Securement Device in Place Check Blood Return Labs drawn from Line* No Document 02/03/17 11:03 CARLIE (Rec: 02/03/17 11:08 CARLIE [id number]) IV/Invasive Line Assessment Right Upper Arm Basilic Vein Reason for Line Insertion/Rationale for Provide Access for IV Insertion Medication(s) Provide Access for Emergency Financial Writer IV Medication Catheter Length (External) (cm) 4 Number of Lumens 1 IV Catheter Type PICC Line Site Observation Patent [place] Site Observation Intervention Inspected Line Dressing Applied Transparent Dressing Securement Device/Sutures Intact Chlorhexidine Gluconate Impregnated Disc Dry/Intact Date Dressing Last Changed 01/30/17 Line Care Saline Flush P-Locked Securement Device in Place Check Blood Return Labs drawn from Line* No Infection risk assessment Start: 01/30/17 06: 15 Freq: Q12H Status: Complete Document 01/31/17 08:00 KMS (Rec: 01/31/17 11:55 KMS [id number]) Document 01/31/17 14:53 CARLIE (Rec: 01/31/17 15:28 CARLIE [id number]) Document 02/01/17 01:18 JLK (Rec: 02/01/17 01:18 JLK [id number]) Document 02/01/17 08:00 KMS (Rec: 02/01/17 11:16 KMS [id number]) Initial Patient Assessment Start: 01/30/17 01: 58 Freq: .ONCE Status: Complete Document 01/30/17 02:56 ALS (Rec: 01/30/17 02:59 ALS [id number]) General Questions Date of Arrival on Unit 01/30/17 Time of Arrival on Unit 02:00 Admitted From Emergency Dept Chief Complaint Shortness of Breath History Provided By Patient Family Member Orientation To Call Light Bed Phone TV Bathroom Smoking Policy Visiting Hours Procedures ID Bracelet On Emergency Contact Name Amy Zelaya Relationship to Patient Spouse Emergency Contact Bands applied ID band Patient Health Portal Patient was provided information on Yes accessing patient portal Patient Requests Portal Enrollment No Reason No Portal Enrollment Patient Declines Malnutrition Screening Tool (MST) Have You Recently Lost Weight Without Yes Trying If Yes, How Much Weight Have You Lost 34 or More Pounds Have You Been Eating Poorly Because of a Yes Decreased Appetite MST Score 5 Advance Directives Advance Directives Yes Advance Directives Information Provided Yes Advance Directives on File Yes Living Will No Power of Distillery Laborer Yes Power of Distillery Laborer Name Kamron Zelaya Power of Distillery Laborer Patient Rights Copy of Rights Given and Verbalizes Yes Understanding Tobacco Free Aromas: Copy of [facility] Yes Statement Given and Patient Verbalizes Understanding Communication Ability Primary Language [place] Preferred Language [place] Retail Assistant Manager Required No Ability to Follow Directions Fair Able to Read Yes Able to Write Yes Communication Tools None Caregiver Communication Skills No Impairment Impairment Learning Preferences One-on-One Instruction Group Instruction Audio Visual Written Demonstration Discussion Hearing Ability Normal Visual Assistive Devices None Pain Assessment Do You Have Any Ongoing (Chronic) Pain No Problems Past Medical History Medical history arthritis cirrhosis COPD coronary artery disease DVT diabetes GERD GI bleed hepatitis hyperlipidemia hypertension liver disease other Male Surgical History other Psychiatric history anxiety depression Smoking Status Former smoker Smokeless Tobacco Status No Alcohol use none Drug use none Current living situation Home With Family Recent Out of Country Travel Within the No Last 8 Weeks Exposure or Possible Exposure to Illness No During Travel Psychosocial Over Age 75 and Lives Alone or Over Age No 80 Potential Need for Follow-up Care (ECF, Yes Home Health, ECT) Developmentally Disabled or History of No Mental Health Problems Diagnosis with Financial Writer Need or Yes Terminal Implications Responsible for Care of Others No Financial Concerns No Suspected Abuse or Neglect No Suicidal or Homicidal Ideation No Functional Assessment Eating (Feeding) Ability Minimum Assistance Bathing Ability Moderate Assistance Upper Body Dressing Ability Moderate Assistance Lower Body Dressing Ability Moderate Assistance Ambulation Ability Maximum Assistance Toileting Ability Minimum Assistance Bladder Incontinent Date of Last Known Bowel Movement 01/29/17 Intake and Output, Strict Start: 01/30/17 01: 58 Freq: Q8H Status: Discharge Document 01/30/17 02:38 ALS (Rec: 01/30/17 02:41 ALS [id number]) Intake and Output Number of Urine Diapers 1 Urine Color Bright Yellow Document 01/30/17 02:52 WJS (Rec: 01/30/17 03:00 WJS [id number]) Intake and Output Intake, Oral Amount 0 Number of Voids 0 Document 01/30/17 05:42 WJS (Rec: 01/30/17 05:50 WJS [id number]) Intake and Output Intake, Oral Amount 0 Number of Voids 0 Document 01/30/17 10:23 [facility] (Rec: 01/30/17 10:23 [id number]) Intake and Output Catheter 525 Urine Color Straw Document 01/30/17 17:11 [facility] (Rec: 01/30/17 17:17 [id number]) Intake and Output Catheter 500 Urine Color Straw Document 01/30/17 17:57 [id number] (Rec: 01/30/17 17:57 [id number]) Intake and Output Intake, Oral Amount 360 Meal Dinner Percent of Meal Consumed 75% Oral Supplements* None Document 01/30/17 19:39 CJB (Rec: 01/30/17 19:43 CJB [id number]) Intake and Output Intake, Oral Amount 120 Catheter 400 Urine Color Straw Document 01/31/17 00:15 CJB (Rec: 01/31/17 00:21 CJB [id number]) Intake and Output Intake, Oral Amount 120 Catheter 300 Urine Color Straw Document 01/31/17 04:40 CJB (Rec: 01/31/17 04:44 CJB [id number]) Intake and Output Intake, Oral Amount 100 Catheter 450 Urine Color Straw Document 01/31/17 14:53 CARLIE (Rec: 01/31/17 15:28 CARLIE [id number]) Intake and Output Intake, Oral Amount 237 Meal Lunch Percent of Meal Consumed 100% Oral Supplements* None Catheter 400 Number of Bowel Movements 0 Document 01/31/17 18:00 KMS (Rec: 01/31/17 18:50 KMS [id number]) Intake and Output Intake, Oral Amount 450 Meal Dinner Percent of Meal Consumed 75% Oral Supplements* None Document 01/31/17 19:14 JNV (Rec: 01/31/17 19:14 JNV [id number]) Intake and Output Number of Bowel Movements 1 Stool Size Large Stool Consistency loose liquid Document 01/31/17 22:12 JNV (Rec: 01/31/17 22:12 JNV [id number]) Intake and Output Catheter 550 Document 02/01/17 00:14 JNV (Rec: 02/01/17 00:14 JNV [id number]) Intake and Output Catheter 200 Document 02/01/17 00:16 JNV (Rec: 02/01/17 00:16 JNV [id number]) Intake and Output Number of Bowel Movements 1 Stool Size Small Stool Consistency liquid Stool Color Brown Document 02/01/17 04:51 CAT (Rec: 02/01/17 04:51 CAT [id number]) Intake and Output Catheter 200 Urine Color Dark Yellow Document 02/01/17 08:03 KMS (Rec: 02/01/17 08:03 KMS [id number]) Intake and Output Intake, Oral Amount 500 Document 02/01/17 09:00 KMS (Rec: 02/01/17 10:03 KMS [id number]) Intake and Output Number of Voids 1 Urine Color Bright Yellow Number of Bowel Movements 1 Stool Size Large Stool Consistency liquid soft Stool Characteristics Normal for Patient Stool Color Brown Document 02/01/17 10:31 SGB (Rec: 02/01/17 10:31 SGB [id number]) Intake and Output Intake, Oral Amount 240 Meal Breakfast Percent of Meal Consumed 100% Oral Supplements* None Document 02/01/17 10:34 KMS (Rec: 02/01/17 10:34 KMS [id number]) Intake and Output Paracentesis 3,500 Document 02/01/17 14:24 SGB (Rec: 02/01/17 14:25 SGB [id number]) Intake and Output Output, Urine Amount 300 Number of Bowel Movements 1 Stool Size Moderate Stool Consistency liquid Document 02/01/17 15:16 KMS (Rec: 02/01/17 15:18 KMS [id number]) Intake and Output Intake, Oral Amount 500 Output, Urine Amount 75 Document 02/01/17 17:41 KMS (Rec: 02/01/17 17:53 KMS [id number]) Intake and Output Intake, Oral Amount 120 Output, Urine Amount 200 Document 02/01/17 17:51 LE (Rec: 02/01/17 17:51 LE [id number]) Intake and Output Intake, Oral Amount 240 Meal Dinner Percent of Meal Consumed 100% Oral Supplements* None Document 02/01/17 20:37 JCL (Rec: 02/01/17 22:02 JCL [id number]) Intake and Output Output, Urine Amount 150 Urine Color Dark Yellow Document 02/01/17 22:58 JNG (Rec: 02/01/17 22:58 JNG [id number]) Intake and Output Intake, Oral Amount 650 Document 02/02/17 05:10 JNG (Rec: 02/02/17 05:12 JNG [id number]) Intake and Output Intake, Oral Amount 0 Output, Urine Amount 350 Stool Size Moderate Stool Consistency soft Stool Characteristics Pasty Stool Color Brown Document 02/02/17 16:34 CAM (Rec: 02/02/17 16:34 CAM [id number]) Intake and Output Number of Bowel Movements 4 Stool Size Moderate Stool Consistency loose soft Stool Characteristics Normal for Patient Stool Color Brown Yellow Document 02/02/17 17:13 CAM (Rec: 02/02/17 17:15 CAM [id number]) Intake and Output Output, Urine Amount 400 Urine Color Dark Yellow Stool Size Moderate Stool Consistency loose soft Stool Characteristics Normal for Patient Stool Color Brown Yellow Document 02/02/17 21:17 JNV (Rec: 02/02/17 21:17 JNV [id number]) Intake and Output Output, Urine/Stool Mix Amount 1 Document 02/03/17 03:53 JNV (Rec: 02/03/17 03:54 JNV [id number]) Intake and Output Output, Urine/Stool Mix Amount 1 Document 02/03/17 07:20 LE (Rec: 02/03/17 07:21 LE [id number]) Intake and Output Output, Urine Amount 100 Number of Bowel Movements 1 Stool Size Moderate Stool Consistency soft Stool Color Brown Document 02/03/17 09:10 [id number] (Rec: 02/03/17 09:11 [id number]) Intake and Output Intake, Oral Amount 240 Meal Breakfast Percent of Meal Consumed 100% Oral Supplements* Ensure high protein 8 ozbottle Document 02/03/17 13:16 LE (Rec: 02/03/17 13:16 LE [id number]) Intake and Output Intake, Oral Amount 240 Meal Lunch Percent of Meal Consumed 40% Oral Supplements* None Med Rec Tech Start: 01/30/17 17: 31 Freq: Status: Complete Document 01/30/17 17:31 MRB (Rec: 01/30/17 17:31 MRB [id number]) Pharmacy Med Rec Tech Home Medicatons Reconciled? Yes Was this to catch up from previous day Yes Does patient take 10 or more medications Yes ? Does patient request medication Yes education Do home meds include Coumadin, Xarelto, No Pradaxa, Eliquis Added Patient Preferred Pharmacy Yes Verified Allergies Yes Would Patient Like to use [facility] No Patient Pharmacy Notify provider Start: 01/31/17 12: 25 Freq: once Status: Complete Document 01/31/17 20:59 JLK (Rec: 02/01/17 00:52 JLK [id number]) Oxygen administration Start: 01/30/17 01: 58 Freq: Q12H Status: Complete Document 01/30/17 02:37 ALS (Rec: 01/30/17 02:37 ALS [id number]) Oxygen Oxygen Delivery Method Nasal Cannula Oxygen Flow Rate (LPM) 3 Document 01/30/17 09:44 SKC (Rec: 01/30/17 10:23 SKC [id number]) Oxygen Oxygen Delivery Method Nasal Cannula Oxygen Flow Rate (LPM) 3 Document 01/31/17 20:59 JLK (Rec: 02/01/17 00:52 JLK [id number]) Oxygen Oxygen Delivery Method Room Air Document 02/01/17 08:00 KMS (Rec: 02/01/17 11:16 KMS [id number]) Oxygen Oxygen Delivery Method Nasal Cannula PT Acute Eval Start: 02/02/17 14: 52 Freq: Status: Discharge Document 02/02/17 14:52 GREG (Rec: 02/02/17 15:10 GREG [id number]) Inpatient Rehab Intake Date of Admission 01/30/17 Chief Complaint dyspnea PMH/Surgical History Relevant to Rehab arthritis, cirrhosis, COPD, CAD, DM, GERD, hepatitis, HTN, HLD, alpha-1 antitrypsin deficiency, anxiety/depression Factors/Comorbidities Impacting POC COPD DM HTN Diagnosis Acidosis Reason for Referral/Orders Evaluate, develop and implement POC Restrictions/Precautions Fall Precautions/Risk History Provided By Patient Lives With: Spouse Type of Dwelling Single Family Home Number of Floors (Floors) 2 Number of Stairs to Enter (Stairs) 2 Are there handrails? None Bathing Environment Tub/Shower Home Environment Details first-floor set-up Current DME Front Wheeled Walker Wheelchair Bedside Commode (3 in 1) Shower Chair Grab Bars in Shower Grab Bars at Toilet Prior Level Of Function Pt state assists with self-care ADLs. She completes 75% of the work and he completes 25% of the work. completes household management tasks. Prior Mobility Level Pt states he could ambulate short distances in home with use of RW. However, he required w/c for mobility of long distances Patient/Family Goal Pt wishes to return home. Limited subjective information obtained due to limited pt cooperation. Pain Assessment Pain Present Reports No Pain Functional Mobility Assessment Bed Mobility Ability Standby Assistance Bed Mobility Assistive Devices Bed Rail Elevated HOB Bed Transfer Ability Contact Guard Assist (CGA) Bed Transfer Assistive Devices Rolling Walker Commode/Toilet Transfer Ability Contact Guard Assist (CGA) Commode/Toilet Transfer Assistive 3-in-1 Commode Devices Static Sitting Balance Ability Good Dynamic Sitting Balance Ability Good -/Fair + Static Standing Balance Ability Good -/Fair + Dynamic Standing Balance Ability Fair Ambulation Assistive Devices Rolling Walker Activity Tolerance Fair Gait/Stairs Deviation Assess. Ambulation Ability Contact Guard Assist (CGA) Ambulation Distance (ft) (feet) 5 Ambulation Assistive Device Rolling Walker Ambulation Ability Comments Pt ambulates bed to [facility] with use of RW. Step-through gait pattern, decreased step length B, slow beth, and forward flexed posture are noted. No major instances of LOB appreciated. Gross Strength/ROM Gross UE Strength Within Functional Limits Gross UE ROM Within Functional Limits Gross LE Strength Other (See Detail) Gross LE ROM Within Functional Limits LE ROM/Strength Detail B LE functionally assessed to be >/= 3/5. No MMT completed due to limited pt cooperation. Edema/Skin Integrity Comment intact Gross Sensorimotor Gross Sensation No Deficit Noted Gross Coordination No Deficit Noted Cognition/Visual Assessment Level of Alertness Sleepy Patient Orientation Person Name Date of Safety Awareness Situational Awareness Safety Awareness Comment Pt is oriented, but is very sleepy when lying in bed. Alertness improves once pt is sitting EOB. Visual Acuity No Deficits Noted Hearing Ability Hard of Hearing Ability to Follow Directions Follows One Step Follows Two Step Patient Behavior Uncooperative Speech Pattern Unclear Poor Articulation Expression Summary Pt declines use of gait belt for OOB activities. Rehab Education Education Topic Bed Mobility Transfers Gait Safety Awareness Teaching Recipient Patient Teaching Method Verbal Response to Teaching Reinforcement needed Acute Care PT POC Is patient being assessed for No rehabilitation for diagnosis of stroke? AM-PAC PT Basic Mobility Raw Score 20 AM-PAC CMS 0-100% Impaired Score 33 Problems/Impairments/Functional Decreased Functional Endurance Limitation Decreased Safety/Judgement/ Cognition Decreased Functional Mobility/ Transfers Decreased Standing Tolerance Balance Impaired Gait Decreased Strength Assessment Pt is appropriate for skilled rehab services. PT services are warranted at this time in order to address impairments and functional limitations as stated below. Pt demonstrates poor safety awareness and limited cooperation during PT evaluation. Based on today's assessment, level of functional mobility is primarily limited by dyspnea and poor endurance. Pt would benefit from 24hr supervision and home health PT services in order to ensure safety within home and further facilitate return to [facility]. PT exits room with pt on BSC . Pt's is present and RN is entering room. Rehab Potential Fair Disposition at end of Eval/Treatment Bathroom/Bedside Commode Lines intact RN/RELIGIOUS ACTIVITIES DIRECTOR informed Family in room Call light/phone within reach Tray table within reach All needs met PT Treatment Diagnosis Other fatigue Planned Interventions Therapeutic Exercise Therapeutic Activity Gait Training Neuromuscular Reeducation PT Treatment Frequency 3x/wk Goals Determined With Patient/Family Yes Estimated PT Needs at Discharge Home Health Pt. will perform all bed mobility with__ Modified Independent ___to increase functional indendence. Pt. will perform all transfers with Modified Independent to increase safe functional mobility and independence. Pt. will demonstrate gait feet 25ft, SBA, RW with assist using to increase functional mobility, strength, and/or endurance. Pt. will ascend/descend steps 2 steps, B HR, CGA using handrails with assistance. Pt. will participate in of 10 minutes continuous activity allowing increased endurance while completing ADLs improving quality of life. Pt. will verbally recall precautions Walker Safety/Assistive Device without cues for increased safety & compliance in discharge environment. Pt. will perform therapeutic exercise Minimal Cues with to improve functional ROM, strength, and endurance during all functional activities. Supervising Therapist Ryan Hicksal and Re-Eval Charges Evaluation Time: Minutes with Patient 20 Physical Therapy Evaluation High Yes Complexity PT Charges/Documentation Finished? Yes Is patient being discharged from PT No today? Financial Class MCR Secondary Payer Y PT G-code Therapy Billing Start: 02/02/17 14: 52 Freq: Status: Discharge Document 02/02/17 14:52 BANNER (Rec: 02/02/17 15:10 BANNER [id number]) PT G-codes G-code Required For This Visit No PT Current Status Mobility PT Current Status Modifier At least 20% but less than 40% impaired, limited or restricted PT Goal Status Mobility PT Goal Status Modifer At least 20% but less than 40% impaired, limited or restricted Patient Belongings Start: 01/30/17 01: 58 Freq: .ONCE Status: Complete Document 01/30/17 02:56 ALS (Rec: 01/30/17 02:59 ALS [id number]) Patient Belongings Belongings With Patient on Admission Yes At Bedside Patient Belongings Cell Phone Patient Rounding Start: 01/30/17 01: 58 Freq: Q1H Status: Discharge Document 01/30/17 02:37 ALS (Rec: 01/30/17 02:38 ALS [id number]) Hourly Rounding Hourly Rounding Checked for Patient Positioning Patient Helped to Bathroom or Assisted with Bedpan or Urinal Patient Personal Items Placed Within Reach Checked Patient Pain Level Hourly Rounding Completed Yes Patient Resting With Eyes Closed Is family present? No Safety Call Light Within Reach Bed Position Low Bed Exit Alarm Fall Precautions Phone Within Reach Bed Brake On Side Rails Up X2 Are the Floors Free From Trip Hazards? Yes Is the Room Free From Clutter? Yes Turn and Postion Bedrest Yes Turn Q 2HR Yes Patient Position Back Positioning Aides Pillows Document 01/30/17 02:52 WJS (Rec: 01/30/17 03:00 WJS [id number]) Hourly Rounding Hourly Rounding Checked for Patient Positioning Patient Personal Items Placed Within Reach Hourly Rounding Completed Yes Patient Awake Is family present? No Safety Call Light Within Reach Bed Position Low Bed Exit Alarm Fall Precautions Phone Within Reach Bed Brake On Side Rails Up X2 Are the Floors Free From Trip Hazards? Yes Is the Room Free From Clutter? Yes Document 01/30/17 03:42 ALS (Rec: 01/30/17 03:42 ALS [id number]) Hourly Rounding Hourly Rounding Checked for Patient Positioning Patient Personal Items Placed Within Reach Hourly Rounding Completed Yes Patient Awake Is family present? No Safety Call Light Within Reach Bed Position Low Bed Exit Alarm Fall Precautions Phone Within Reach Bed Brake On Side Rails Up X2 Are the Floors Free From Trip Hazards? Yes Is the Room Free From Clutter? Yes Turn and Postion Bedrest Yes Turn Q 2HR Yes Patient Position Back Positioning Aides Pillows Document 01/30/17 04:03 ALS (Rec: 01/30/17 04:12 ALS [id number]) Hourly Rounding Hourly Rounding Checked for Patient Positioning Patient Personal Items Placed Within Reach Hourly Rounding Completed Yes Patient Sleeping Is family present? No Safety Call Light Within Reach Bed Position Low Bed Exit Alarm Fall Precautions Phone Within Reach Bed Brake On Side Rails Up X2 Are the Floors Free From Trip Hazards? Yes Is the Room Free From Clutter? Yes Turn and Postion Bedrest Yes Turn Q 2HR Yes Patient Position Back Positioning Aides Pillows Document 01/30/17 04:56 ALS (Rec: 01/30/17 04:57 ALS [id number]) Hourly Rounding Hourly Rounding Checked for Patient Positioning Patient Personal Items Placed Within Reach Hourly Rounding Completed Yes Patient Sleeping Is family present? No Safety Call Light Within Reach Bed Position Low Bed Exit Alarm Fall Precautions Phone Within Reach Bed Brake On Side Rails Up X2 Are the Floors Free From Trip Hazards? Yes Is the Room Free From Clutter? Yes Turn and Postion Bedrest Yes Turn Q 2HR Yes Patient Position Back Positioning Aides Pillows Document 01/30/17 05:42 WJS (Rec: 01/30/17 05:50 WJS [id number]) Hourly Rounding Hourly Rounding Checked for Patient Positioning Patient Personal Items Placed Within Reach Hourly Rounding Completed Yes Patient Resting With Eyes Closed Is family present? No Safety Call Light Within Reach Bed Position Low Bed Exit Alarm Fall Precautions Phone Within Reach Bed Brake On Side Rails Up X2 Are the Floors Free From Trip Hazards? Yes Is the Room Free From Clutter? Yes Document 01/30/17 06:09 ALS (Rec: 01/30/17 06:09 ALS [id number]) Hourly Rounding Hourly Rounding Checked for Patient Positioning Patient Personal Items Placed Within Reach Hourly Rounding Completed Yes Patient Resting With Eyes Closed Is family present? No Safety Call Light Within Reach Bed Position Low Bed Exit Alarm Fall Precautions Phone Within Reach Bed Brake On Side Rails Up X2 Are the Floors Free From Trip Hazards? Yes Is the Room Free From Clutter? Yes Turn and Postion Bedrest Yes Turn Q 2HR Yes Patient Position Back Positioning Aides Pillows Peripheral venous cannula mgmt/flush Start: 01/30/17 03: 32 Freq: CONT Status: Complete Document 01/30/17 04:56 ALS (Rec: 01/30/17 04:57 ALS [id number]) Document 01/30/17 09:44 [facility] (Rec: 01/30/17 10:23 [facility] [id number]) Document 01/31/17 20:59 JLK (Rec: 02/01/17 00:52 JLK [id number]) RT Continuous Pulse Oximetry Start: 01/30/17 03: 37 Freq: CONT Status: Complete Document 01/31/17 20:59 JLK (Rec: 02/01/17 00:52 JLK [id number]) Pulse Oximetry Oxygen Delivery Method Room Air RT PRN/Refused/Not Available Start: 01/31/17 04: 36 Freq: Status: Discharge Document 01/31/17 04:35 PJS (Rec: 01/31/17 04:37 PJS [id number]) PRN/Refused Refused Yes O2 Sat by Pulse Oximetry (95-100) 97 Heart rate 76 Oxygen Delivery Method Nasal Cannula Oxygen Flow Rate (LPM) 3 FIO2 % (%) 32 Comment Pt refused tx. Document 02/01/17 05:05 TRM (Rec: 02/01/17 05:06 TRM [id number]) PRN/Refused Refused Yes O2 Sat by Pulse Oximetry (95-100) 98 Oxygen Delivery Method Nasal Cannula Oxygen Flow Rate (LPM) 3 FIO2 % (%) 32 Comment pt stated that he does not need a breating tx and would not take it. med already in neb and dumped out. no distress or comps noted RT Respiratory Medication Delivery Start: 01/29/17 21: 06 Freq: Status: Discharge Document 01/29/17 21:06 MKT (Rec: 01/29/17 21:07 MKT [id number]) Respiratory Therapy Pre Assessment SPO2 (95-100) 96 Heart rate 76 Respiratory Rate 18 Oxygen Delivery Method Nasal Cannula O2 Flow Rate 2 FIO2 (%) 28 Throughout Breath Sounds Inspiratory Wheezing Scattered Treatment Modality Nebulizer Therapy Respiratory Medications Duoneb Medication Delivery Device Mask Treatment Tolerance Excellent Cont. Aerosol 1st Hour* Yes Post RT Medication Delivery Post Heart rate 80 Post Respiratory Rate (breaths/min) 17 Throughout Post Breath Sounds Inspiratory Wheezing Scattered Treatment Outcome No Change Comment no comps noted RT Cough/Suction Cough Description Involuntary Non-Productive Document 01/30/17 05:01 MKT (Rec: 01/30/17 05:37 MKT [place] [id number]) Respiratory Therapy Pre Assessment SPO2 (95-100) 93 L Heart rate 68 Respiratory Rate 18 Oxygen Delivery Method Nasal Cannula O2 Flow Rate 2 Throughout Breath Sounds Diminished Treatment Modality Nebulizer Therapy Respiratory Medications Duoneb Medication Delivery Device Mask Treatment Tolerance Good Initial Aerosol/MDI/DPI* Yes Respiratory Student completed [place] No Post RT Medication Delivery Post Heart rate 73 Post Respiratory Rate (breaths/min) 18 Throughout Post Breath Sounds Diminished Treatment Outcome No Change Comment No distress or complications noted. Document 01/30/17 11:09 CRW (Rec: 01/30/17 11:09 CRW [place] [id number]) Respiratory Therapy Pre Assessment SPO2 (95-100) 97 Heart rate 70 Respiratory Rate 18 Oxygen Delivery Method Nasal Cannula O2 Flow Rate 3 Throughout Breath Sounds Diminished Treatment Modality Nebulizer Therapy Respiratory Medications Duoneb Mucomyst Medication Delivery Device Mask Treatment Tolerance Good Sub. Aerosol/MDI/DPI Treatment* Yes Respiratory Student completed [place] No Post RT Medication Delivery Post Heart rate 78 Post Respiratory Rate (breaths/min) 18 Throughout Post Breath Sounds Diminished Treatment Outcome No Change Comment No distress or complications noted. RT Cough/Suction Cough Description None Sputum Amount None Document 01/30/17 23:36 PJS (Rec: 01/31/17 00:07 PJS [id number]) Respiratory Therapy Pre Assessment SPO2 (95-100) 98 Heart rate 86 Respiratory Rate 15 Oxygen Delivery Method Nasal Cannula O2 Flow Rate 3 FIO2 (%) 32 Throughout Breath Sounds Diminished Treatment Modality Nebulizer Therapy Respiratory Medications Duoneb Mucomyst Medication Delivery Device Mask Treatment Tolerance Good Sub. Aerosol/MDI/DPI Treatment* Yes Post RT Medication Delivery Post Heart rate 81 Post Respiratory Rate (breaths/min) 17 Throughout Post Breath Sounds Diminished Treatment Outcome No Change Comment No complications noted Document 01/31/17 10:38 DE (Rec: 01/31/17 10:39 DE [place] [id number]) Respiratory Therapy Pre Assessment SPO2 (95-100) 94 L Heart rate 79 Respiratory Rate 18 Oxygen Delivery Method Nasal Cannula O2 Flow Rate 4 Throughout Breath Sounds Diminished Treatment Modality Nebulizer Therapy Respiratory Medications Duoneb Mucomyst Medication Delivery Device Mask Treatment Tolerance Good Sub. Aerosol/MDI/DPI Treatment* Yes Post RT Medication Delivery Post Heart rate 80 Post Respiratory Rate (breaths/min) 18 Throughout Post Breath Sounds Diminished Treatment Outcome No Change Comment no complicaions Document 01/31/17 16:59 DE (Rec: 01/31/17 17:00 DE [place] [id number]) Respiratory Therapy Pre Assessment SPO2 (95-100) 97 Heart rate 81 Respiratory Rate 16 Oxygen Delivery Method Nasal Cannula O2 Flow Rate 4 FIO2 (%) 32 Throughout Breath Sounds Diminished Treatment Modality Nebulizer Therapy Respiratory Medications Duoneb Mucomyst Medication Delivery Device Mask Treatment Tolerance Good Sub. Aerosol/MDI/DPI Treatment* Yes Post RT Medication Delivery Post Heart rate 82 Post Respiratory Rate (breaths/min) 18 Throughout Post Breath Sounds Diminished Treatment Outcome No Change Comment no complicaions Document 01/31/17 22:50 TRM (Rec: 01/31/17 22:52 TRM [id number]) Respiratory Therapy Pre Assessment SPO2 (95-100) 92 L Heart rate 80 Respiratory Rate 18 Oxygen Delivery Method Room Air FIO2 (%) 21 Throughout Breath Sounds Diminished Treatment Modality Nebulizer Therapy Respiratory Medications Duoneb Mucomyst Medication Delivery Device Mask Treatment Tolerance Good Sub. Aerosol/MDI/DPI Treatment* Yes Respiratory Student completed [place] No Post RT Medication Delivery Post Heart rate 81 Post Respiratory Rate (breaths/min) 17 Throughout Post Breath Sounds Diminished Treatment Outcome No Change Comment no distress or comps noted RT Cough/Suction Cough Description None Sputum Amount None Document 02/01/17 10:55 ANB (Rec: 02/01/17 10:56 ANB [id number]) Respiratory Therapy Pre Assessment SPO2 (95-100) 99 Heart rate 75 Respiratory Rate 16 Oxygen Delivery Method Nasal Cannula O2 Flow Rate 3 Throughout Breath Sounds Diminished Treatment Modality Nebulizer Therapy Respiratory Medications Duoneb Mucomyst Medication Delivery Device Mask Treatment Tolerance Excellent Sub. Aerosol/MDI/DPI Treatment* Yes Respiratory Student completed [place] No Post RT Medication Delivery Post Heart rate 80 Post Respiratory Rate (breaths/min) 16 Throughout Post Breath Sounds Diminished Treatment Outcome No Change Respiratory Therapy has recognized a No potential need for Home Oxygen Respiratory Therapy has recognized a No potential need for Home BIPAP/CPAP Comment NO COMPS Document 02/01/17 16:14 ANB (Rec: 02/01/17 16:15 ANB [id number]) Respiratory Therapy Pre Assessment SPO2 (95-100) 96 Heart rate 79 Respiratory Rate 16 Oxygen Delivery Method Nasal Cannula O2 Flow Rate 2 Throughout Breath Sounds Clear Diminished Treatment Modality Nebulizer Therapy Respiratory Medications Duoneb Medication Delivery Device Mask Treatment Tolerance Excellent Sub. Aerosol/MDI/DPI Treatment* Yes Post RT Medication Delivery Post Heart rate 79 Post Respiratory Rate (breaths/min) 16 Throughout Post Breath Sounds Clear Diminished Treatment Outcome No Change Respiratory Therapy has recognized a No potential need for Home Oxygen Respiratory Therapy has recognized a No potential need for Home BIPAP/CPAP Comment NO COMPS Document 02/01/17 23:53 TRM (Rec: 02/01/17 23:55 TRM [id number]) Respiratory Therapy Pre Assessment SPO2 (95-100) 93 L Heart rate 75 Respiratory Rate 14 Oxygen Delivery Method Nasal Cannula O2 Flow Rate 3 FIO2 (%) 32 Throughout Breath Sounds Clear Diminished Treatment Modality Nebulizer Therapy Respiratory Medications Duoneb Mucomyst Medication Delivery Device Mask Treatment Tolerance Excellent Sub. Aerosol/MDI/DPI Treatment* Yes Respiratory Student completed [place] No Post RT Medication Delivery Post Heart rate 77 Post Respiratory Rate (breaths/min) 15 Throughout Post Breath Sounds Clear Diminished Treatment Outcome No Change Respiratory Therapy has recognized a No potential need for Home Oxygen Respiratory Therapy has recognized a No potential need for Home BIPAP/CPAP Comment no distress or comps noted RT Cough/Suction Cough Description None Sputum Amount None Document 02/02/17 11:12 CRW (Rec: 02/02/17 11:12 CRW [id number]) Respiratory Therapy Pre Assessment SPO2 (95-100) 95 Heart rate 79 Respiratory Rate 14 Oxygen Delivery Method Nasal Cannula O2 Flow Rate 3 Throughout Breath Sounds Clear Diminished Treatment Modality Nebulizer Therapy Respiratory Medications Duoneb Mucomyst Medication Delivery Device Mask Treatment Tolerance Excellent Sub. Aerosol/MDI/DPI Treatment* Yes Respiratory Student completed [place] No Post RT Medication Delivery Post Heart rate 79 Post Respiratory Rate (breaths/min) 15 Throughout Post Breath Sounds Clear Diminished Treatment Outcome No Change Respiratory Therapy has recognized a No potential need for Home Oxygen Respiratory Therapy has recognized a No potential need for Home BIPAP/CPAP Comment no distress or comps noted RT Cough/Suction Cough Description None Sputum Amount None Document 02/02/17 17:06 JP (Rec: 02/02/17 17:06 [place] [id number]) Respiratory Therapy Pre Assessment SPO2 (95-100) 95 Heart rate 71 Respiratory Rate 16 BP (mm Hg) 122/78 Oxygen Delivery Method Nasal Cannula O2 Flow Rate 3 FIO2 (%) 32 Throughout Breath Sounds Clear Diminished Treatment Modality Nebulizer Therapy Respiratory Medications Duoneb Mucomyst Medication Delivery Device Mask Treatment Tolerance Excellent Sub. Aerosol/MDI/DPI Treatment* Yes Respiratory Student completed [place] No Post RT Medication Delivery Post Heart rate 79 Post Respiratory Rate (breaths/min) 15 Throughout Post Breath Sounds Clear Diminished Treatment Outcome No Change Respiratory Therapy has recognized a No potential need for Home Oxygen Respiratory Therapy has recognized a No potential need for Home BIPAP/CPAP Comment no distress or comps noted RT Cough/Suction Cough Description None Sputum Amount None Document 02/02/17 22:35 [facility] (Rec: 02/02/17 23:57 [place] [id number]) Respiratory Therapy Pre Assessment SPO2 (95-100) 95 Heart rate 78 Respiratory Rate 16 Oxygen Delivery Method Nasal Cannula O2 Flow Rate 3 Throughout Breath Sounds Diminished Treatment Modality Nebulizer Therapy Metered Dose Inhaler Respiratory Medications Duoneb Mucomyst Symbicort MDI Medication Delivery Device Mask MDI Spacer (Labeled) Yes Treatment Tolerance Good Sub. Aerosol/MDI/DPI Treatment* Yes Post RT Medication Delivery Post Heart rate 77 Post Respiratory Rate (breaths/min) 16 Throughout Post Breath Sounds Diminished Treatment Outcome No Change Comment Tx given- no complications noted. Document 02/03/17 11:07 DD (Rec: 02/03/17 11:12 DD [id number]) Respiratory Therapy Pre Assessment SPO2 (95-100) 91 L Heart rate 79 Respiratory Rate 20 Oxygen Delivery Method Nasal Cannula O2 Flow Rate 3 Throughout Breath Sounds Diminished Treatment Modality Nebulizer Therapy Metered Dose Inhaler Respiratory Medications Duoneb Mucomyst Symbicort MDI Medication Delivery Device Mask MDI Spacer (Labeled) Yes Treatment Tolerance Good Sub. Aerosol/MDI/DPI Treatment* Yes Post RT Medication Delivery Post Heart rate 81 Post Respiratory Rate (breaths/min) 20 Throughout Post Breath Sounds Diminished Treatment Outcome No Change Comment Tx given- no complications noted. Saline lock insertion/management Start: 01/29/17 20: 31 Freq: Status: Complete Document 01/29/17 20:46 NNN (Rec: 01/29/17 20:47 NNN [id number]) IV Insertion/Site Assessment Right Upper Arm Basilic Vein IV Established [employer]POR[employer]ER Yes Reason for IV Insertion Provide Access for IV Medication(s) IV Catheter Type PICC Line Site Observation Patent Dressing Applied Transparent Dressing Seizure precautions Start: 01/30/17 03: 47 Freq: CONT Status: Discharge Document 01/30/17 04:03 ALS (Rec: 01/30/17 04:12 ALS [id number]) Document 01/31/17 08:00 KMS (Rec: 01/31/17 11:55 KMS [id number]) Document 02/01/17 08:00 KMS (Rec: 02/01/17 11:16 KMS [id number]) Document 02/02/17 09:04 CAM (Rec: 02/02/17 09:[address] [facility] [id number]) Document 02/03/17 07:20 CARLIE (Rec: 02/03/17 08:[address] [facility] [place]16) Sepsis Screening Start: 01/30/17 01: 58 Freq: Q8H Status: Discharge Document 01/30/17 02:38 ALS (Rec: 01/30/17 02:41 ALS [id number]) Sepsis Screening Sepsis Infection Criteria Present suspected infection Sepsis SIRS Criteria none Sepsis Screen No Definite Risk Sepsis Action Taken no action required Sepsis Screening Start: 01/30/17 09: 40 Freq: Q4H Status: Discharge Document 01/30/17 09:44 [facility] (Rec: 01/30/17 10:23 [facility] [id number]) Sepsis Screening Sepsis Infection Criteria Present suspected infection Sepsis SIRS Criteria none Sepsis Screen No Definite Risk Sepsis Action Taken no action required Document 01/30/17 11:39 [facility] (Rec: 01/30/17 11:48 [facility] [id number]) Sepsis Screening Sepsis Infection Criteria Present suspected infection Sepsis SIRS Criteria none Sepsis Screen No Definite Risk Sepsis Action Taken no action required Document 01/30/17 17:11 [facility] (Rec: 01/30/17 17:17 [facility] [id number]) Sepsis Screening Sepsis Infection Criteria Present suspected infection Sepsis SIRS Criteria none Sepsis Screen No Definite Risk Sepsis Action Taken no action required Document 01/30/17 21:10 SAG (Rec: 01/30/17 22:32 SAG [id number]) Sepsis Screening Sepsis Infection Criteria Present suspected infection Sepsis SIRS Criteria none Sepsis Screen No Definite Risk Sepsis Action Taken no action required Document 01/31/17 00:00 SAG (Rec: 01/31/17 01:04 SAG [id number]) Sepsis Screening Sepsis Infection Criteria Present suspected infection Sepsis SIRS Criteria none Sepsis Screen No Definite Risk Sepsis Action Taken no action required Document 01/31/17 05:02 SAG (Rec: 01/31/17 05:09 SAG [id number]) Sepsis Screening Sepsis Infection Criteria Present suspected infection Sepsis SIRS Criteria none Sepsis Screen No Definite Risk Sepsis Action Taken no action required Document 01/31/17 08:00 KMS (Rec: 01/31/17 11:55 KMS [id number]) Sepsis Screening Sepsis Infection Criteria Present suspected infection Sepsis SIRS Criteria none Sepsis Screen No Definite Risk Sepsis Action Taken no action required Document 01/31/17 14:53 CARLIE (Rec: 01/31/17 15:28 CARLIE [id number]) Sepsis Screening Sepsis Infection Criteria Present confirmed infection Sepsis SIRS Criteria WBC > 12k or < 4k or bands > 10% Sepsis Screen No Definite Risk Sepsis Action Taken no action required Document 01/31/17 20:59 JLK (Rec: 02/01/17 00:52 JLK [id number]) Sepsis Screening Sepsis Infection Criteria Present confirmed infection Sepsis SIRS Criteria WBC > 12k or < 4k or bands > 10% Sepsis Screen No Definite Risk Sepsis Action Taken no action required Document 02/01/17 00:01 JLK (Rec: 02/01/17 02:34 JLK [id number]) Sepsis Screening Sepsis Infection Criteria Present confirmed infection Sepsis SIRS Criteria WBC > 12k or < 4k or bands > 10% Sepsis Screen No Definite Risk Sepsis Action Taken no action required Document 02/01/17 04:15 JLK (Rec: 02/01/17 04:22 JLK [id number]) Sepsis Screening Sepsis Infection Criteria Present confirmed infection Sepsis SIRS Criteria WBC > 12k or < 4k or bands > 10% Sepsis Screen No Definite Risk Sepsis Action Taken no action required Document 02/01/17 08:00 KMS (Rec: 02/01/17 11:16 KMS [id number]) Sepsis Screening Sepsis Infection Criteria Present suspected infection Sepsis SIRS Criteria none Sepsis Screen No Definite Risk Sepsis Action Taken no action required Document 02/01/17 12:26 KMS (Rec: 02/01/17 12:32 KMS [id number]) Sepsis Screening Sepsis Infection Criteria Present suspected infection Sepsis SIRS Criteria none Sepsis Screen No Definite Risk Sepsis Action Taken no action required Document 02/01/17 15:16 KMS (Rec: 02/01/17 15:18 KMS [id number]) Sepsis Screening Sepsis Infection Criteria Present suspected infection Sepsis SIRS Criteria none Sepsis Screen No Definite Risk Sepsis Action Taken no action required Document 02/01/17 20:37 JCL (Rec: 02/01/17 22:02 JCL [id number]) Sepsis Screening Sepsis Infection Criteria Present suspected infection Sepsis SIRS Criteria none Sepsis Screen No Definite Risk Sepsis Action Taken no action required Document 02/02/17 00:10 JCL (Rec: 02/02/17 00:27 JCL [id number]) Sepsis Screening Sepsis Infection Criteria Present suspected infection Sepsis SIRS Criteria none Sepsis Screen No Definite Risk Sepsis Action Taken no action required Document 02/02/17 04:37 JCL (Rec: 02/02/17 05:10 JCL [id number]) Sepsis Screening Sepsis Infection Criteria Present suspected infection Sepsis SIRS Criteria none Sepsis Screen No Definite Risk Sepsis Action Taken no action required Document 02/02/17 09:04 CAM (Rec: 02/02/17 09:09 CAM [id number]) Sepsis Screening Sepsis Infection Criteria Present suspected infection Sepsis SIRS Criteria none Sepsis Screen No Definite Risk Sepsis Action Taken no action required Document 02/02/17 12:26 CAM (Rec: 02/02/17 12:30 CAM [id number]) Sepsis Screening Sepsis Infection Criteria Present suspected infection Sepsis SIRS Criteria none Sepsis Screen No Definite Risk Sepsis Action Taken no action required Document 02/02/17 17:13 CAM (Rec: 02/02/17 17:15 CAM [id number]) Sepsis Screening Sepsis Infection Criteria Present suspected infection Sepsis SIRS Criteria none Sepsis Screen No Definite Risk Sepsis Action Taken no action required Document 02/02/17 19:52 JCL (Rec: 02/02/17 21:43 JCL [id number]) Sepsis Screening Sepsis Infection Criteria Present suspected infection Sepsis SIRS Criteria none Sepsis Screen No Definite Risk Sepsis Action Taken no action required Document 02/03/17 00:20 JCL (Rec: 02/03/17 00:49 JCL [id number]) Sepsis Screening Sepsis Infection Criteria Present suspected infection Sepsis SIRS Criteria none Sepsis Screen No Definite Risk Sepsis Action Taken no action required Document 02/03/17 04:14 JCL (Rec: 02/03/17 04:40 JCL [id number]) Sepsis Screening Sepsis Infection Criteria Present suspected infection Sepsis SIRS Criteria none Sepsis Screen No Definite Risk Sepsis Action Taken no action required Document 02/03/17 07:20 CARLIE (Rec: 02/03/17 08:00 CARLIE [id number]) Sepsis Screening Sepsis Infection Criteria Present none Sepsis SIRS Criteria none Sepsis Screen No Definite Risk Sepsis Action Taken no action required Document 02/03/17 11:03 CARLIE (Rec: 02/03/17 11:08 CARLIE [id number]) Sepsis Screening Sepsis Infection Criteria Present none Sepsis SIRS Criteria none Sepsis Screen No Definite Risk Sepsis Action Taken no action required Skin Risk Assessment Scale Start: 01/30/17 01: 58 Freq: Q12H Status: Discharge Document 01/30/17 02:38 ALS (Rec: 01/30/17 02:41 ALS [id number]) Skin Risk Assessment Scale Moisture Risk Occasionally Moist Sensory Perception No Impairment Activity Risk Bedfast Mobility Risk Very Limited Nutrition Risk Very Poor Friction & Shear Risk Problem Skin Risk Total Score (points) 12 Document 01/30/17 09:44 SKC (Rec: 01/30/17 10:23 SK [id number]) Skin Risk Assessment Scale Moisture Risk Occasionally Moist Sensory Perception Slightly Limited Activity Risk Bedfast Mobility Risk Very Limited Nutrition Risk Probably Inadequate Friction & Shear Risk Problem Skin Risk Total Score (points) 12 Document 01/30/17 21:10 SAG (Rec: 01/30/17 22:32 SAG [id number]) Skin Risk Assessment Scale Moisture Risk Occasionally Moist Sensory Perception Slightly Limited Activity Risk Bedfast Mobility Risk Very Limited Nutrition Risk Probably Inadequate Friction & Shear Risk Potential Problem Skin Risk Total Score (points) 13 Document 01/31/17 08:00 KMS (Rec: 01/31/17 11:55 KMS [id number]) Skin Risk Assessment Scale Moisture Risk Occasionally Moist Sensory Perception Slightly Limited Activity Risk Chairfast Mobility Risk Very Limited Nutrition Risk Probably Inadequate Friction & Shear Risk Potential Problem Skin Risk Total Score (points) 14 Document 01/31/17 20:59 JLK (Rec: 02/01/17 00:53 JLK [id number]) Skin Risk Assessment Scale Moisture Risk Occasionally Moist Sensory Perception Slightly Limited Activity Risk Chairfast Mobility Risk Very Limited Nutrition Risk Probably Inadequate Friction & Shear Risk Potential Problem Skin Risk Total Score (points) 14 Document 02/01/17 08:00 KMS (Rec: 02/01/17 11:16 KMS [id number]) Skin Risk Assessment Scale Moisture Risk Occasionally Moist Sensory Perception Slightly Limited Activity Risk Chairfast Mobility Risk Slightly Limited Nutrition Risk Probably Inadequate Friction & Shear Risk Potential Problem Skin Risk Total Score (points) 15 Document 02/01/17 20:37 JCL (Rec: 02/01/17 22:02 JCL [id number]) Skin Risk Assessment Scale Moisture Risk Occasionally Moist Sensory Perception Slightly Limited Activity Risk Walks Occasionally Mobility Risk Slightly Limited Nutrition Risk Probably Inadequate Friction & Shear Risk Potential Problem Skin Risk Total Score (points) 16 Document 02/02/17 09:04 CAM (Rec: 02/02/17 09:09 CAM [id number]) Skin Risk Assessment Scale Moisture Risk Rarely Moist Sensory Perception Slightly Limited Activity Risk Walks Occasionally Mobility Risk Slightly Limited Nutrition Risk Probably Inadequate Friction & Shear Risk Potential Problem Skin Risk Total Score (points) 17 Document 02/02/17 19:52 JCL (Rec: 02/02/17 21:43 JCL [id number]) Skin Risk Assessment Scale Moisture Risk Rarely Moist Sensory Perception Slightly Limited Activity Risk Walks Occasionally Mobility Risk Slightly Limited Nutrition Risk Probably Inadequate Friction & Shear Risk No Apparent Problem Skin Risk Total Score (points) 18 Document 02/03/17 07:20 CARLIE (Rec: 02/03/17 08:00 CARLIE [id number]) Skin Risk Assessment Scale Moisture Risk Rarely Moist Sensory Perception Slightly Limited Activity Risk Walks Occasionally Mobility Risk Slightly Limited Nutrition Risk Probably Inadequate Friction & Shear Risk No Apparent Problem Skin Risk Total Score (points) 18 Supplemental oxygen titration Start: 01/29/17 20: 31 Freq: Status: Complete Document 01/29/17 20:34 NNN (Rec: 01/29/17 20:46 NNN [id number]) Oxygen Adminstration Oxygen Saturation (95-100) 93 L Oxygen Delivery Method Nasal Cannula System Review Start: 01/30/17 01: 58 Freq: Q8H Status: Discharge Document 01/30/17 04:03 ALS (Rec: 01/30/17 04:12 ALS [id number]) Pain Assessment Pain Present Allowed to Sleep Neurological Assessment Eye Opening Spontaneous Motor Obeys Commands Verbal Oriented Coma Scale Total 15 Neurologic Status Alert Patient Orientation Person Place Time Arousable To Name Speech Pattern Normal rate Normal rhythm Normal tone Appropriate Mumbled Patient Behavior Fatigued Asleep Mood Description Calm Relaxed Facial Symmetry Symmetrical Neurological Comment: Patient is drowsy. Patient did not squeeze this RNs hands or push/pull on feet. Patient will randomly open eyes to this RN. Patient was alert and oriented to name, place, and year. Cardiovascular Assessment Signs and Symptoms Cool Extremities Heart Sounds S1 & S2 Pulse Rhythm Regular Jugular Vein Distention None Capillary Refill < 3 Seconds Right Radial 2+ Left Radial 2+ Right Dorsalis Pedis 1+ Left Dorsalis Pedis 1+ Has Confirmed Diagnosis of DVT, PE or No VTE Mechanical Prophylaxis No Cardiac Monitoring Heart Rate 71 Monitoring Method Telemetry Rhythm Sinus Rhythm WA Interval 0.19 QRS Interval 0.04 QT Interval 0.40 Monitor Number hardwire [employer] Administrator Limits 150/50 Strip placed in Chart Yes Pacemaker Assessment Cardiac Comment: Patient is not on tele at this time. Respiratory Assessment Respiratory Symptoms Mouth Breathing Effort Normal for Patient Spontaneous Non-Labored Depth Normal Respiratory Pattern Regular Chest Shape Normal Expansion Symmetrical All Lung Goncalves Expiratory Rhonchi Oxygen Delivery Method Nasal Cannula Oxygen Flow Rate (LPM) 2.5 Cough Description None Sputum Amount None Gastrointestinal Assessment Abdomen Description Soft Large Round Distended Nausea/Vomiting Presence None All Four Quadrants Hypoactive Flatus Presence Absent Genitourinary Assessment Genitourinary Symptoms None Bladder Pattern Incontinent Voiding Method Brief Incontinent Urine Appearance Clear Color Dark Yellow Odor Normal Bladder Distention None Suprapubic Tenderness with Palpation No Integumentary Assessment Nail Bed Appearance [place] Temperature Cool Moisture Dry Turgor Loose Color Normal All Pressure Points Assessed Yes Evidence of Incision/Wounds/Breakdown Yes Mucous membranes moist, pink and intact Yes Oral Cavity Missing Teeth Musculoskeletal Assessment Musculoskeletal Symptoms Generalized Weakness Limited Range of Motion Document 01/30/17 09:44 [facility] (Rec: 01/30/17 10:23 [facility] [id number]) Cardiovascular Assessment Has Confirmed Diagnosis of DVT, PE or No VTE Mechanical Prophylaxis No System Review ICU/2N Start: 01/30/17 09: 39 Freq: Q4H Status: Discharge Document 01/30/17 09:44 [facility] (Rec: 01/30/17 10:23 [facility] [id number]) Pain Assessment Pain Present Reports No Pain Neurological Assessment Eye Opening To Voice Motor Obeys Commands Verbal Confused Coma Scale Total 13 Neurologic Status Responds to voice Patient Orientation Person Arousable To Name Light Pain Speech Pattern Garbled Mumbled Patient Behavior Cooperative Fatigued Mood Description Appropriate Bilateral Pupil Reaction Sluggish Pupil Size (mm) 2 Pupil [place] Equal Scleral Edema No Checker In Strength Equal Bilat Weak Push/Pull Equal Numbness/Tingling No Facial Symmetry Right Side Asymmetry Neurological Comment: PATIENT RIGHT EYE DROOP; CHRONIC, NOT NEW TO PATIENT. PATIENT ABLE TO STATE NAME AND , HOWEVER, SPEECH IS MUMBLED AND ALMOST INCOMPREHENSIBLE. PATIENT UNABLE TO ANSWER OTHER ORIENTATION QUESTIONS ASKED BY THIS RN. Cardiovascular Assessment Signs and Symptoms Abdominal Bloating Extreme Fatigue Abdominal Edema Heart Sounds S1 & S2 Pulse Rate 73 Rhythm Regular Right Radial 2+ Left Radial 2+ Right Dorsalis Pedis 1+ Weak Left Dorsalis Pedis 1+ Weak Jugular Vein Distention None Capillary Refill < 3 Seconds Circulatory Tenderness Description None Mechanical Prophylaxis No Has Confirmed Diagnosis of DVT, PE or No VTE VTE Prophylaxis SQ Treatment Alarms/Limits Heart Rate 73 EKG Method Telemetry Rhythm Sinus Rhythm [place] Interval 0.16 QRS Interval 0.12 QT Interval 0.43 Respiratory Assessment Respiratory Symptoms None Effort Spontaneous Non-Labored Depth Normal Respiratory Pattern Regular Chest Shape Normal Expansion Symmetrical Right Upper Lobe Clear Diminished Right Middle Lobe Clear Diminished Right Lower Lobe Diminished Left Upper Lobe Clear Diminished Left Lower Lobe Diminished Oxygen Delivery Method Nasal Cannula Oxygen Flow Rate (LPM) 3 Cough Description None Sputum Amount None Comment: PATIENT HAS NO COUGH OR SPUTUM PRODUCTION TO ASSESS AT THIS TIME. WILL CONTINUE TO MONITOR . Gastrointestinal Assessment Abdomen Description Soft Non-Tender Round Ascitic 3 or more loose stools, in less than 24 No hours Nausea/Vomiting Presence None GI Comment: PATIENT ABDOMEN SWOLEN, NON PITTING All Four Quadrants Absent Genitourinary Assessment Voiding Method Indwelling Catheter Urine Appearance Clear Color Straw Odor Strong Bladder Distention None Suprapubic Tenderness with Palpation No Comment: BARRERA PATENT AND DRAINING TO GRAVITY Integumentary Assessment Fingernail Color Yellow Nail Bed Appearance [place] Temperature Warm Moisture Dry Turgor Loose Color Normal All Pressure Points Assessed Yes Evidence of Incision/Wounds/Breakdown Yes: SEE WOUND ASSESSMENT Mucous membranes moist, pink and intact No Oral Cavity Missing Teeth Other (See Comments) Integumentary Comment: POOR DENTAL HYGIENE. PATIENT TEETH YELLOW. ORAL CAVITY DRY Musculoskeletal Assessment Musculoskeletal Symptoms Generalized Weakness Tremors Document 01/30/17 11:39 [facility] (Rec: 01/30/17 11:48 [facility] [id number]) Neurological Assessment Eye Opening Spontaneous Motor Obeys Commands Verbal Oriented Coma Scale Total 15 Neurologic Status Alert Patient Orientation Person Place Time Arousable To Name Speech Pattern Appropriate Clear Coherent Slowed Delayed Patient Behavior Appropriate Cooperative Mood Description Calm Relaxed Appropriate Bilateral Pupil Reaction Sluggish Pupil Size (mm) 2 Pupil [place] Equal Scleral Edema No Checker In Strength Equal Push/Pull Equal Numbness/Tingling No Facial Symmetry Right Side Asymmetry Neurological Comment: PATIENT RIGHT EYE DROOP; CHRONIC, NOT NEW TO PATIENT. PATIENT MORE ALERT. SITTING UP IN BED RECEIVING BREATHING TREATMENT AT THIS TIME. PATIENT ABLE TO STATE NAME, , PRESENT MONTH, AND PLACE. Cardiovascular Assessment Signs and Symptoms Abdominal Bloating Abdominal Edema Heart Sounds S1 & S2 Pulse Rate 78 Rhythm Regular Right Radial 2+ Left Radial 2+ Right Dorsalis Pedis 1+ Weak Left Dorsalis Pedis 1+ Weak Jugular Vein Distention None Capillary Refill < 3 Seconds Circulatory Tenderness Description None Mechanical Prophylaxis No Has Confirmed Diagnosis of DVT, PE or No VTE VTE Prophylaxis SQ Treatment Cardiac Monitoring Monitor Number [id number] Strip placed in Chart Yes History Reviewed Yes Memory Cleared No Alarms/Limits HR Alarm 125/40 Heart Rate 78 EKG Method Telemetry Rhythm Sinus Rhythm [place] Interval 0.18 QRS Interval 0.13 QT Interval 0.41 Respiratory Assessment Respiratory Symptoms None Effort Normal for Patient Spontaneous Non-Labored Depth Normal Respiratory Pattern Regular Chest Shape Normal Expansion Symmetrical Right Upper Lobe Clear Right Middle Lobe Clear Right Lower Lobe Clear Left Upper Lobe Clear Left Lower Lobe Clear Oxygen Delivery Method Nasal Cannula Oxygen Flow Rate (LPM) 3 Cough Description None Sputum Amount None Comment: AT THIS TIME PATIENT HAS NO COUGH OR SPUTUM TO ASSESS. THIS RN WILL CONTINUE TO MONITOR. Gastrointestinal Assessment Abdomen Description Soft Non-Tender Round Ascitic 3 or more loose stools, in less than 24 No: LBM 3 hours Nausea/Vomiting Presence None GI Comment: PATIENT STATES LBM ON 01/29/17 WAS 'ALMOST DIARRHEA' All Four Quadrants Active Genitourinary Assessment Voiding Method Indwelling Catheter Urine Appearance Clear Color Straw Odor Strong Bladder Distention None Suprapubic Tenderness with Palpation No Comment: BARRERA PATENT AND DRAINING TO GRAVITY Integumentary Assessment Fingernail Color Yellow Nail Bed Appearance [place] Temperature Warm Moisture Dry Turgor Loose Color Normal All Pressure Points Assessed Yes Evidence of Incision/Wounds/Breakdown Yes: SEE WOUND ASSESSMENT Mucous membranes moist, pink and intact No Oral Cavity Missing Teeth Other (See Comments) Musculoskeletal Assessment Musculoskeletal Symptoms Generalized Weakness Document 01/30/17 17:11 [facility] (Rec: 01/30/17 17:17 [facility] [id number]) Pain Assessment Pain Present Reports No Pain Neurological Assessment Eye Opening Spontaneous Motor Obeys Commands Verbal Oriented Coma Scale Total 15 Neurologic Status Alert Patient Orientation Person Place Time Arousable To Name Speech Pattern Appropriate Clear Coherent Slowed Delayed Patient Behavior Appropriate Cooperative Mood Description Calm Relaxed Appropriate Bilateral Pupil Reaction Reactive Pupil Size (mm) 2 Pupil [place] Equal Scleral Edema No Checker In Strength Equal Push/Pull Equal Numbness/Tingling No Facial Symmetry Right Side Asymmetry Neurological Comment: PATIENT RIGHT EYE DROOP; CHRONIC, NOT NEW TO PATIENT. PATIENT A&OX3. SITTING UP IN BED WAITING FOR DINNER. Cardiovascular Assessment Signs and Symptoms Abdominal Bloating Abdominal Edema Heart Sounds S1 & S2 Pulse Rate 85 Rhythm Regular Right Radial 1+ Left Radial 1+ Right Dorsalis Pedis 1+ Weak Left Dorsalis Pedis 1+ Weak Jugular Vein Distention None Capillary Refill < 3 Seconds Circulatory Tenderness Description None Mechanical Prophylaxis No Has Confirmed Diagnosis of DVT, PE or No VTE VTE Prophylaxis SQ Treatment Cardiac Monitoring Monitor Number [id number] Strip placed in Chart Yes History Reviewed Yes Memory Cleared No Alarms/Limits HR Alarm 125/40 Heart Rate 85 EKG Method Telemetry Rhythm Sinus Rhythm WA Interval 0.21 QRS Interval 0.12 QT Interval 0.40 Respiratory Assessment Respiratory Symptoms None Effort Normal for Patient Spontaneous Non-Labored Depth Normal Respiratory Pattern Regular Chest Shape Normal Expansion Symmetrical All Lung Goncalves Clear Oxygen Delivery Method Room Air Cough Description Voluntary Non-Productive Moist Weak Cough Frequency Intermittent Sputum Amount None Comment: PATIENT HAS NO SPUTUM TO ASSESS AT THIS TIME. Gastrointestinal Assessment Abdomen Description Soft Non-Tender Round Ascitic 3 or more loose stools, in less than 24 No: LBM 01/29/17 hours Nausea/Vomiting Presence None GI Comment: PATIENT STATES LBM ON 01/29/17 WAS 'ALMOST DIARRHEA' All Four Quadrants Active Flatus Presence Present Genitourinary Assessment Voiding Method Indwelling Catheter Urine Appearance Clear Color Straw Odor Strong Bladder Distention None Suprapubic Tenderness with Palpation No Comment: BARRERA PATENT AND DRAINING TO GRAVITY Integumentary Assessment Fingernail Color Yellow Nail Bed Appearance [place] Temperature Warm Moisture Dry Turgor Loose Color Normal All Pressure Points Assessed Yes Evidence of Incision/Wounds/Breakdown Yes: SEE WOUND ASSESSMENT Mucous membranes moist, pink and intact No Oral Cavity Missing Teeth Other (See Comments) Integumentary Comment: POOR DENTAL HYGIENE. PATIENT TEETH YELLOW. ORAL CAVITY DRY Musculoskeletal Assessment Musculoskeletal Symptoms Generalized Weakness Document 01/30/17 21:10 [facility] (Rec: 01/30/17 22:32 [facility] [id number]) Neurological Assessment Eye Opening Spontaneous Motor Obeys Commands Verbal Oriented Coma Scale Total 15 Neurologic Status Alert Patient Orientation Person Place Time Arousable To Name Speech Pattern Appropriate Clear Coherent Slowed Delayed Patient Behavior Cooperative Anxious Mood Description Anxious Bilateral Pupil Reaction Reactive Pupil Size (mm) 2 Pupil [place] Equal Scleral Edema No Checker In Strength Equal Push/Pull Equal Numbness/Tingling No Facial Symmetry Right Side Asymmetry Neurological Comment: PATIENT RIGHT EYE DROOP; CHRONIC, NOT NEW TO PATIENT. PATIENT A&OX3. Cardiovascular Assessment Signs and Symptoms Abdominal Bloating Abdominal Edema Heart Sounds S1 & S2 Right Radial 1+ Left Radial 1+ Right Dorsalis Pedis 1+ Left Dorsalis Pedis 1+ Jugular Vein Distention None Capillary Refill < 3 Seconds Circulatory Tenderness Description None Chest Pain Complaint No Mechanical Prophylaxis No Has Confirmed Diagnosis of DVT, PE or No VTE VTE Prophylaxis SQ Treatment Cardiac Monitoring Monitor Number [id number] Strip placed in Chart Yes Memory Cleared No Alarms/Limits HR Alarm 125/40 Heart Rate 85 EKG Method Telemetry Rhythm Sinus Rhythm WA Interval 0.15 QRS Interval 0.08 QT Interval 0.39 Pacemaker Assessment Cardiac Comment: . Respiratory Assessment Respiratory Symptoms None Effort Normal for Patient Spontaneous Non-Labored Depth Normal Respiratory Pattern Regular Chest Shape Normal Expansion Symmetrical All Lung Goncalves Clear Right Upper Lobe Clear Right Middle Lobe Clear Right Lower Lobe Clear Left Upper Lobe Clear Left Lower Lobe Clear Right Upper Lobe Clear Diminished Right Middle Lobe Clear Diminished Right Lower Lobe Clear Diminished Left Upper Lobe Clear Diminished Left Lower Lobe Clear Diminished Oxygen Delivery Method Nasal Cannula Oxygen Flow Rate (LPM) 3 Cough Description Voluntary Non-Productive Moist Weak Cough Frequency Intermittent Sputum Amount None Comment: PATIENT HAS NO SPUTUM TO ASSESS AT THIS TIME. Gastrointestinal Assessment Abdomen Description Soft Non-Tender Round Ascitic 3 or more loose stools, in less than 24 No: LBM 3//17 hours Nausea/Vomiting Presence None All Four Quadrants Active Flatus Presence Present Genitourinary Assessment Genitourinary Symptoms None Bladder Pattern Incontinent Voiding Method Indwelling Catheter Urine Appearance Clear Color Straw Odor Strong Bladder Distention None Suprapubic Tenderness with Palpation No Comment: BARRERA PATENT AND DRAINING TO GRAVITY Integumentary Assessment Fingernail Color Yellow Nail Bed Appearance [place] Temperature Warm Moisture Dry Turgor Loose Color Normal All Pressure Points Assessed Yes Evidence of Incision/Wounds/Breakdown Yes: SEE WOUND ASSESSMENT Mucous membranes moist, pink and intact No Oral Cavity Missing Teeth Other (See Comments) Integumentary Comment: POOR DENTAL HYGIENE. PATIENT TEETH YELLOW. ORAL CAVITY DRY Musculoskeletal Assessment Musculoskeletal Symptoms Generalized Weakness Document 01/31/17 00:00 [facility] (Rec: 01/31/17 01:04 [facility] [id number]) Neurological Assessment Eye Opening Spontaneous Motor Obeys Commands Verbal Oriented Coma Scale Total 15 Neurologic Status Alert Patient Orientation Person Place Time Arousable To Name Speech Pattern Appropriate Clear Coherent Slowed Delayed Patient Behavior Cooperative Anxious Mood Description Anxious Checker In Strength Equal Push/Pull Equal Numbness/Tingling No Facial Symmetry Symmetrical Cardiovascular Assessment Signs and Symptoms Abdominal Bloating Abdominal Edema Chest Pain Complaint No Mechanical Prophylaxis No Has Confirmed Diagnosis of DVT, PE or No VTE VTE Prophylaxis SQ Treatment Cardiac Monitoring Monitor Number [id number] Strip placed in Chart Yes Memory Cleared No Alarms/Limits HR Alarm 125/40 Heart Rate 86 EKG Method Telemetry Rhythm Sinus Rhythm WA Interval 0.15 QRS Interval 0.10 QT Interval 0.44 Respiratory Assessment Respiratory Symptoms None Effort Normal for Patient Spontaneous Non-Labored Depth Normal Respiratory Pattern Regular Chest Shape Normal Expansion Symmetrical All Lung Goncalves Clear Right Upper Lobe Clear Right Middle Lobe Clear Right Lower Lobe Clear Left Upper Lobe Clear Left Lower Lobe Clear Right Upper Lobe Clear Diminished Right Middle Lobe Clear Diminished Right Lower Lobe Clear Diminished Left Upper Lobe Clear Diminished Left Lower Lobe Clear Diminished Oxygen Delivery Method Nasal Cannula Oxygen Flow Rate (LPM) 3 Cough Description None Sputum Amount None Comment: PATIENT HAS NO SPUTUM TO ASSESS AT THIS TIME. Gastrointestinal Assessment Abdomen Description Soft Non-Tender Round Ascitic 3 or more loose stools, in less than 24 No hours Nausea/Vomiting Presence None Genitourinary Assessment Genitourinary Symptoms None Bladder Pattern Incontinent Voiding Method Indwelling Catheter Urine Appearance Clear Color Straw Odor Strong Bladder Distention None Suprapubic Tenderness with Palpation No Comment: BARRERA PATENT AND DRAINING TO GRAVITY Integumentary Assessment Temperature Warm Moisture Dry Turgor Loose Color Normal All Pressure Points Assessed Yes Evidence of Incision/Wounds/Breakdown Yes: SEE WOUND ASSESSMENT Mucous membranes moist, pink and intact No Oral Cavity Missing Teeth Other (See Comments) Musculoskeletal Assessment Musculoskeletal Symptoms Generalized Weakness Document 01/31/17 05:02 [facility] [place] (Rec: 01/31/17 05:09 [facility] [id number]) Pain Assessment Pain Present Reports No Pain Neurological Assessment Eye Opening Spontaneous Motor Obeys Commands Verbal Oriented Coma Scale Total 15 Neurologic Status Alert Patient Orientation Person Place Time Arousable To Name Speech Pattern Appropriate Clear Coherent Slowed Delayed Patient Behavior Cooperative Anxious Mood Description Anxious Numbness/Tingling No Facial Symmetry Symmetrical Cardiovascular Assessment Signs and Symptoms Abdominal Bloating Abdominal Edema Heart Sounds S1 & S2 Right Radial 1+ Left Radial 1+ Right Dorsalis Pedis 1+ Left Dorsalis Pedis 1+ Jugular Vein Distention None Capillary Refill < 3 Seconds Circulatory Tenderness Description None Chest Pain Complaint No Mechanical Prophylaxis No Has Confirmed Diagnosis of DVT, PE or No VTE VTE Prophylaxis SQ Treatment Cardiac Monitoring Monitor Number [id number] Strip placed in Chart Yes Memory Cleared No Alarms/Limits HR Alarm 125/40 Heart Rate 77 EKG Method Telemetry Rhythm Sinus Rhythm WA Interval 0.18 QRS Interval 0.10 QT Interval 0.37 Pacemaker Assessment Cardiac Comment: . Respiratory Assessment Respiratory Symptoms None Effort Normal for Patient Spontaneous Non-Labored Depth Normal Respiratory Pattern Regular Chest Shape Normal Expansion Symmetrical All Lung Goncalves Clear Right Upper Lobe Clear Right Middle Lobe Clear Right Lower Lobe Clear Left Upper Lobe Clear Left Lower Lobe Clear Right Upper Lobe Clear Diminished Right Middle Lobe Clear Diminished Right Lower Lobe Clear Diminished Left Upper Lobe Clear Diminished Left Lower Lobe Clear Diminished Oxygen Delivery Method Nasal Cannula Oxygen Flow Rate (LPM) 4 Cough Description None Sputum Amount None Gastrointestinal Assessment 3 or more loose stools, in less than 24 No hours Nausea/Vomiting Presence None All Four Quadrants Active Genitourinary Assessment Genitourinary Symptoms None Bladder Pattern Incontinent Voiding Method Indwelling Catheter Urine Appearance Clear Color Straw Odor Strong Bladder Distention None Suprapubic Tenderness with Palpation No Integumentary Assessment Temperature Warm Moisture Dry Turgor Loose Color Normal All Pressure Points Assessed Yes Evidence of Incision/Wounds/Breakdown Yes: SEE WOUND ASSESSMENT Mucous membranes moist, pink and intact No Oral Cavity Missing Teeth Other (See Comments) Musculoskeletal Assessment Musculoskeletal Symptoms Generalized Weakness Document 01/31/17 08:00 [facility] (Rec: 01/31/17 11:55 [facility] [id number]) Pain Assessment Pain Present Reports No Pain Neurological Assessment Eye Opening Spontaneous Motor Obeys Commands Verbal Oriented Coma Scale Total 15 Neurologic Status Alert Patient Orientation Person Place Time Arousable To Name Speech Pattern Appropriate Coherent Slowed Delayed Mumbled Patient Behavior Cooperative Mood Description Flat Bilateral Pupil Reaction Reactive Pupil Size (mm) 2 Pupil [place] Equal All Four Limbs Strength Normal for Patient Checker In Strength Equal Push/Pull Equal Numbness/Tingling No Facial Symmetry Symmetrical Neurological Comment: Patient complains of some back ache. Repositioned for comfort and set up for breakfast. Patient mumbles words, short responses. Cardiovascular Assessment Signs and Symptoms Hypotension Abdominal Edema Heart Sounds S1 & S2 Rhythm Regular Pulse Assessment Method Auscultation Right Radial 2+ Left Radial 2+ Right Dorsalis Pedis 1+ Left Dorsalis Pedis 1+ Jugular Vein Distention None Capillary Refill < 3 Seconds Circulatory Tenderness Description None Generalized Type Non-Pitting Bilateral Lower Extremity Type Non-Pitting Mechanical Prophylaxis No Has Confirmed Diagnosis of DVT, PE or No VTE VTE Prophylaxis SQ Treatment Cardiac Monitoring Monitor Number [id number] Strip placed in Chart Yes History Reviewed Yes Memory Cleared Yes Alarms/Limits HR Alarm 125/40 Heart Rate 77 EKG Method Telemetry Rhythm Sinus Rhythm First Degree Block WA Interval 0.22 QRS Interval 0.10 QT Interval 0.37 Respiratory Assessment Respiratory Symptoms Unable to Lie Flat Dry Cough Effort Spontaneous Non-Labored Depth Normal Respiratory Pattern Regular Chest Shape Normal Expansion Symmetrical All Lung Goncalves Diminished Oxygen Delivery Method Nasal Cannula Cough Description Involuntary Non-Productive Cough Frequency Intermittent Sputum Amount None Gastrointestinal Assessment Abdomen Description Soft Non-Tender Large Round Ascitic 3 or more loose stools, in less than 24 No hours Nausea/Vomiting Presence None GI Comment: Umbilical hernia noted. Patient states he gets outpatient paracentesis. Last 01/24. Scab to left lower quadrant from last procedure. All Four Quadrants Active Flatus Presence Present Genitourinary Assessment Genitourinary Symptoms None Bladder Pattern Incontinent Voiding Method Indwelling Catheter Urine Appearance Clear Sediment Color Straw Odor Strong Integumentary Assessment Fingernail Color Yellow Nail Bed Appearance [place] Temperature Warm Moisture Dry Turgor Normal Color Normal All Pressure Points Assessed Yes Evidence of Incision/Wounds/Breakdown Yes: SEE WOUND ASSESSMENT Mucous membranes moist, pink and intact No Oral Cavity Missing Teeth Musculoskeletal Assessment Musculoskeletal Symptoms Generalized Weakness Document 01/31/17 14:53 [facility] (Rec: 01/31/17 15:28 [facility] [id number]) Pain Assessment Pain Present Reports Pain Lower Back Pain Intensity 9 Description Ache Scale Used Numeric (1 - 10) Pain Intervention Medication Neurological Assessment Eye Opening Spontaneous Motor Obeys Commands Verbal Oriented Coma Scale Total 15 Neurologic Status Alert Patient Orientation Person Place Time Arousable To Name Speech Pattern Normal rate Normal rhythm Patient Behavior Cooperative Mood Description Flat Bilateral Pupil Reaction Brisk Pupil Size (mm) 2 Pupil [place] Equal Scleral Edema No All Four Limbs Strength Normal for Patient Checker In Strength Equal Push/Pull Equal Numbness/Tingling No Facial Symmetry Symmetrical Cardiovascular Assessment Signs and Symptoms Hypotension Abdominal Edema Heart Sounds S1 & S2 Right Radial 2+ Left Radial 2+ Right Dorsalis Pedis 1+ Left Dorsalis Pedis 1+ Jugular Vein Distention None Capillary Refill < 3 Seconds Circulatory Tenderness Description None Generalized Type Non-Pitting Bilateral Lower Extremity Type Non-Pitting Mechanical Prophylaxis No Has Confirmed Diagnosis of DVT, PE or No VTE VTE Prophylaxis SQ Treatment Cardiac Monitoring Monitor Number [id number] Strip placed in Chart Yes History Reviewed No Memory Cleared No Alarms/Limits HR Alarm 125/40 Heart Rate 84 EKG Method Telemetry Rhythm First Degree Block WA Interval 0.22 QRS Interval 0.07 QT Interval 0.43 Pacemaker Assessment Cardiac Comment: . Respiratory Assessment Respiratory Symptoms Unable to Lie Flat Dry Cough Effort Spontaneous Non-Labored Depth Normal Respiratory Pattern Regular Chest Shape Normal Expansion Symmetrical All Lung Goncalves Diminished Oxygen Delivery Method Nasal Cannula Oxygen Flow Rate (LPM) 4 Cough Description Dry Cough Frequency Intermittent Sputum Amount None Gastrointestinal Assessment Abdomen Description Soft Non-Tender Large Round Ascitic Nausea/Vomiting Presence None All Four Quadrants Active Flatus Presence Present Genitourinary Assessment Genitourinary Symptoms None Bladder Pattern Incontinent Voiding Method Indwelling Catheter Urine Appearance Clear Sediment Color Straw Odor Strong Bladder Distention None Suprapubic Tenderness with Palpation No Integumentary Assessment Fingernail Color Yellow Nail Bed Appearance [place] Temperature Warm Moisture Dry Turgor Normal Color Normal All Pressure Points Assessed Yes Evidence of Incision/Wounds/Breakdown Yes: SEE WOUND ASSESSMENT Musculoskeletal Assessment Musculoskeletal Symptoms Generalized Weakness Document 01/31/17 20:59 [facility] (Rec: 02/01/17 00:52 [facility] [id number]) Pain Assessment Pain Present Reports Pain Lower Back Description Ache Scale Used Numeric (1 - 10) Pain Intervention Medication Position Distraction Neurological Assessment Eye Opening Spontaneous Motor Obeys Commands Verbal Oriented Coma Scale Total 15 Neurologic Status Alert Patient Orientation Person Place Time Arousable To Name Speech Pattern Normal rate Normal rhythm Patient Behavior Appropriate Cooperative Mood Description Flat Bilateral Pupil Reaction Brisk Pupil Size (mm) 2 Pupil [place] Equal Scleral Edema No All Four Limbs Strength Normal for Patient Checker In Strength Equal Push/Pull Equal Numbness/Tingling No Facial Symmetry Symmetrical Cardiovascular Assessment Signs and Symptoms Hypotension Abdominal Edema Heart Sounds S1 & S2 Right Radial 2+ Left Radial 2+ Right Dorsalis Pedis 1+ Left Dorsalis Pedis 1+ Jugular Vein Distention None Capillary Refill < 3 Seconds Circulatory Tenderness Description None Generalized Type Non-Pitting Bilateral Lower Extremity Type Non-Pitting Mechanical Prophylaxis Yes Documentation of Mechanical Device Graduated compression elastic hosiery Mechanical Device Location Bilateral Lower Extremities Has Confirmed Diagnosis of DVT, PE or No VTE VTE Prophylaxis SQ Treatment Cardiac Monitoring Monitor Number [id number] Strip placed in Chart Yes History Reviewed No Memory Cleared No Alarms/Limits HR Alarm 125/40 Heart Rate 74 EKG Method Telemetry Rhythm Sinus Rhythm First Degree Block WA Interval 0.07 QRS Interval 0.16 QT Interval 0.45 Respiratory Assessment Respiratory Symptoms Unable to Lie Flat Difficulty Clearing Secretions Dry Cough Effort Spontaneous Abdominal Breathing Depth Normal Respiratory Pattern Regular Chest Shape Normal Expansion Symmetrical All Lung Goncalves Diminished Inspiratory Wheezing Expiratory Wheezing Oxygen Delivery Method Nasal Cannula Oxygen Flow Rate (LPM) 2 Cough Description Non-Productive Cough Frequency Intermittent Sputum Amount None Gastrointestinal Assessment Abdomen Description Soft Non-Tender Large Round Ascitic Nausea/Vomiting Presence None All Four Quadrants Active Flatus Presence Present Genitourinary Assessment Genitourinary Symptoms None Bladder Pattern Incontinent Voiding Method Indwelling Catheter Urine Appearance Clear Sediment Color Straw Odor Strong Bladder Distention None Suprapubic Tenderness with Palpation No Integumentary Assessment Fingernail Color Yellow Nail Bed Appearance [place] Temperature Warm Moisture Dry Turgor Normal Color Normal All Pressure Points Assessed Yes Evidence of Incision/Wounds/Breakdown Yes: SEE WOUND ASSESSMENT Mucous membranes moist, pink and intact No Oral Cavity Missing Teeth Musculoskeletal Assessment Musculoskeletal Symptoms Generalized Weakness Document 02/01/17 00:01 [facility] (Rec: 02/01/17 02:34 [facility] [id number]) Neurological Assessment Eye Opening Spontaneous Motor Obeys Commands Verbal Oriented Coma Scale Total 15 Neurologic Status Alert Patient Orientation Person Place Time Arousable To Name Speech Pattern Normal rate Normal rhythm Patient Behavior Appropriate Cooperative Mood Description Flat Bilateral Pupil Reaction Brisk Pupil Size (mm) 2 Pupil [place] Equal Scleral Edema No All Four Limbs Strength Normal for Patient Checker In Strength Equal Push/Pull Equal Numbness/Tingling No Facial Symmetry Symmetrical Cardiovascular Assessment Signs and Symptoms Abdominal Bloating Hypotension Heart Sounds S1 & S2 Right Radial 2+ Left Radial 2+ Right Dorsalis Pedis 1+ Left Dorsalis Pedis 1+ Jugular Vein Distention None Capillary Refill < 3 Seconds Circulatory Tenderness Description None Generalized Type Non-Pitting Bilateral Lower Extremity Type Non-Pitting Mechanical Prophylaxis Yes Documentation of Mechanical Device Graduated compression elastic hosiery Mechanical Device Location Bilateral Lower Extremities Has Confirmed Diagnosis of DVT, PE or No VTE VTE Prophylaxis SQ Treatment Cardiac Monitoring Monitor Number [id number] Strip placed in Chart Yes Alarms/Limits HR Alarm 125/40 Heart Rate 82 EKG Method Telemetry Rhythm Sinus Rhythm First Degree Block [place] Interval 0.11 QRS Interval 0.11 QT Interval 0.38 Respiratory Assessment Respiratory Symptoms Unable to Lie Flat Effort Spontaneous Depth Normal Respiratory Pattern Regular Chest Shape Normal Expansion Symmetrical All Lung Goncalves Diminished Inspiratory Rhonchi Expiratory Rhonchi Oxygen Delivery Method Nasal Cannula Oxygen Flow Rate (LPM) 2 Cough Description Non-Productive Cough Frequency Intermittent Sputum Amount None Gastrointestinal Assessment Abdomen Description Soft Non-Tender Large Round Ascitic Nausea/Vomiting Presence None All Four Quadrants Active Flatus Presence Present Genitourinary Assessment Genitourinary Symptoms None Bladder Pattern Incontinent Voiding Method Indwelling Catheter Urine Appearance Clear Sediment Color Straw Bladder Distention None Suprapubic Tenderness with Palpation No Integumentary Assessment Fingernail Color Yellow Nail Bed Appearance [place] Temperature Warm Moisture Dry Turgor Normal Color Normal All Pressure Points Assessed Yes Evidence of Incision/Wounds/Breakdown Yes Mucous membranes moist, pink and intact No Oral Cavity Missing Teeth Musculoskeletal Assessment Musculoskeletal Symptoms Generalized Weakness Document 02/01/17 04:15 [facility] (Rec: 02/01/17 04:22 [facility] [id number]) Neurological Assessment Eye Opening Spontaneous Motor Obeys Commands Verbal Oriented Coma Scale Total 15 Neurologic Status Alert Patient Orientation Person Place Time Arousable To Name Speech Pattern Normal rate Normal rhythm Patient Behavior Appropriate Cooperative Mood Description Flat Bilateral Pupil Reaction Brisk Pupil Size (mm) 3 Pupil [place] Equal All Four Limbs Strength Normal for Patient Checker In Strength Equal Push/Pull Equal Numbness/Tingling No Facial Symmetry Symmetrical Cardiovascular Assessment Signs and Symptoms Abdominal Bloating Hypotension Heart Sounds S1 & S2 Right Radial 2+ Left Radial 2+ Right Dorsalis Pedis 1+ Left Dorsalis Pedis 1+ Jugular Vein Distention None Capillary Refill < 3 Seconds Circulatory Tenderness Description None Generalized Type Non-Pitting Bilateral Lower Extremity Type Non-Pitting Mechanical Prophylaxis Yes Documentation of Mechanical Device Graduated compression elastic hosiery Mechanical Device Location Bilateral Lower Extremities Has Confirmed Diagnosis of DVT, PE or No VTE VTE Prophylaxis SQ Treatment Cardiac Monitoring Monitor Number [id number] Strip placed in Chart Yes Alarms/Limits HR Alarm 125/40 Heart Rate 66 EKG Method Telemetry Rhythm Sinus Rhythm First Degree Block [place] Interval 0.06 QRS Interval 0.11 QT Interval 0.36 Respiratory Assessment Respiratory Symptoms Unable to Lie Flat Effort Normal for Patient Spontaneous Non-Labored Depth Normal Respiratory Pattern Regular Chest Shape Normal Expansion Symmetrical All Lung Goncalves Clear Oxygen Delivery Method Nasal Cannula Oxygen Flow Rate (LPM) 2 Cough Description None Sputum Amount None Gastrointestinal Assessment Abdomen Description Soft Non-Tender Large Round Ascitic Nausea/Vomiting Presence None All Four Quadrants Active Flatus Presence Present Genitourinary Assessment Genitourinary Symptoms None Bladder Pattern Incontinent Voiding Method Indwelling Catheter Urine Appearance Clear Sediment Color Straw Odor Strong Bladder Distention None Suprapubic Tenderness with Palpation No Integumentary Assessment Fingernail Color Yellow Nail Bed Appearance [place] Temperature Warm Moisture Dry Turgor Normal Color Normal All Pressure Points Assessed Yes Evidence of Incision/Wounds/Breakdown Yes Mucous membranes moist, pink and intact No Oral Cavity Missing Teeth Musculoskeletal Assessment Musculoskeletal Symptoms Generalized Weakness Document 02/01/17 08:00 [facility] (Rec: 02/01/17 11:16 [facility] [id number]) Pain Assessment Pain Present Reports Pain Generalized Pain Intensity 10 Description Chronic Scale Used Numeric (1 - 10) Pain Intervention Medication Position Distraction Comment Roxicodone given Neurological Assessment Eye Opening Spontaneous Motor Obeys Commands Verbal Oriented Coma Scale Total 15 Neurologic Status Alert Patient Orientation Person Place Time Arousable To Name Speech Pattern Normal rhythm Normal tone Slowed Delayed Monotone Mumbled Patient Behavior Appropriate Cooperative Fatigued Mood Description Flat Bilateral Pupil Reaction Brisk Pupil Size (mm) 3 Pupil [place] PERRL All Four Limbs Strength Normal for Patient Checker In Strength Equal Push/Pull Equal Numbness/Tingling No Facial Symmetry Symmetrical Neurological Comment: Patient sleeping upon nurse arrival. Wakes slowly. Responses very slow, but appropriate. Patient looks off into the distance with jaw slack, then responds. Cardiovascular Assessment Signs and Symptoms Abdominal Bloating Hypotension Heart Sounds S1 & S2 Rhythm Regular Pulse Assessment Method Auscultation Right Radial 2+ Left Radial 2+ Right Dorsalis Pedis 1+ Left Dorsalis Pedis 1+ Jugular Vein Distention None Capillary Refill < 3 Seconds Circulatory Tenderness Description None Generalized Type Non-Pitting Bilateral Lower Extremity Type None Mechanical Prophylaxis Yes Documentation of Mechanical Device Graduated compression elastic hosiery Mechanical Device Location Bilateral Lower Extremities Has Confirmed Diagnosis of DVT, PE or No VTE VTE Prophylaxis SQ Treatment Cardiac Monitoring Monitor Number [id number] Strip placed in Chart Yes History Reviewed Yes Memory Cleared Yes Alarms/Limits HR Alarm 125/50 Heart Rate 61 EKG Method Telemetry Rhythm Sinus Rhythm Bundle Branch Block [place] Interval 0.18 QRS Interval 0.13 QT Interval 0.41 Respiratory Assessment Respiratory Symptoms Unable to Lie Flat Effort Normal for Patient Spontaneous Non-Labored Depth Normal Respiratory Pattern Regular Chest Shape Normal Expansion Symmetrical All Lung Goncalves Clear Oxygen Delivery Method Room Air Nasal Cannula Cough Description None Comment: Patient placed to room air once he was awake and maintained oxygenation > 94%. Denies difficulty breathing Gastrointestinal Assessment Abdomen Description Soft Non-Tender Large Round Ascitic 3 or more loose stools, in less than 24 No hours Nausea/Vomiting Presence None All Four Quadrants Active Flatus Presence Present Genitourinary Assessment Genitourinary Symptoms None Bladder Pattern Incontinent Voiding Method Bedside Commode Urinal Integumentary Assessment Fingernail Color Yellow Nail Bed Appearance [place] Temperature Warm Moisture Dry Turgor Normal Color Normal All Pressure Points Assessed Yes Evidence of Incision/Wounds/Breakdown Yes Mucous membranes moist, pink and intact Yes Oral Cavity Missing Teeth Integumentary Comment: Patient given oral hydration. Scattered bruising present. Gluteal cleft with split skin along cleft that is uncomfortable for patient. Scab to LLQ from previous paracentesis. Musculoskeletal Assessment Musculoskeletal Symptoms Generalized Weakness Musculoskeletal Comment: Patient complains of generalized pain and requests pain medicaiton. Also positioned for comfort and set up with breakfast Document 02/01/17 12:26 [facility] (Rec: 02/01/17 12:32 [facility] [id number]) Pain Assessment Pain Present Reports No Pain Generalized Pain Intensity 9 Description Chronic Scale Used Numeric (1 - 10) Pain Intervention Position Distraction Comment Pain medication available soon Neurological Assessment Eye Opening Spontaneous Motor Obeys Commands Verbal Oriented Coma Scale Total 15 Neurologic Status Alert Patient Orientation Person Place Time Arousable To Name Speech Pattern Normal rhythm Normal tone Slowed Delayed Monotone Mumbled Patient Behavior Appropriate Cooperative Crying Fatigued Mood Description Flat Bilateral Pupil Reaction Brisk Pupil Size (mm) 3 Pupil [place] PERRL All Four Limbs Strength Normal for Patient Checker In Strength Equal Push/Pull Equal Numbness/Tingling No Facial Symmetry Symmetrical Neurological Comment: Patient is crying with family at the bedside. States he feels like he is getting worse . Later, does request ativan when pain medication available Cardiovascular Assessment Signs and Symptoms Hypotension Heart Sounds S1 & S2 Rhythm Regular Pulse Assessment Method Auscultation Right Radial 2+ Left Radial 2+ Right Dorsalis Pedis 1+ Left Dorsalis Pedis 1+ Jugular Vein Distention None Capillary Refill < 3 Seconds Circulatory Tenderness Description None Generalized Type Non-Pitting Bilateral Lower Extremity Type None Mechanical Prophylaxis Yes Documentation of Mechanical Device Graduated compression elastic hosiery Mechanical Device Location Bilateral Lower Extremities Has Confirmed Diagnosis of DVT, PE or No VTE VTE Prophylaxis SQ Treatment Mechanical Prophylaxis Cardiac Monitoring Monitor Number [id number] Strip placed in Chart Yes History Reviewed Yes Memory Cleared Yes Alarms/Limits HR Alarm 125/50 Heart Rate 74 EKG Method Telemetry Rhythm Sinus Rhythm Bundle Branch Block [place] Interval 0.19 QRS Interval 0.10 QT Interval 0.38 Respiratory Assessment Respiratory Symptoms Unable to Lie Flat Effort Normal for Patient Spontaneous Non-Labored Depth Normal Respiratory Pattern Regular Chest Shape Normal Expansion Symmetrical All Lung Goncalves Clear Oxygen Delivery Method Nasal Cannula Oxygen Flow Rate (LPM) 3 Cough Description Involuntary Non-Productive Cough Frequency Intermittent Sputum Amount Scant Color Cream Consistency Thick Comment: sputum specimen collected for lab Gastrointestinal Assessment Abdomen Description Soft Non-Tender Large Ascitic 3 or more loose stools, in less than 24 No hours Nausea/Vomiting Presence None All Four Quadrants Active Flatus Presence Present Genitourinary Assessment Genitourinary Symptoms None Bladder Pattern Incontinent Voiding Method Bedside Commode Urinal Comment: attempted to void unsuccessful . will monitor Integumentary Assessment Fingernail Color Yellow Nail Bed Appearance [place] Temperature Warm Moisture Dry Turgor Normal Color Jaundiced All Pressure Points Assessed Yes Evidence of Incision/Wounds/Breakdown Yes Mucous membranes moist, pink and intact Yes Oral Cavity Missing Teeth Musculoskeletal Assessment Musculoskeletal Symptoms Generalized Weakness Document 02/01/17 15:16 [facility] (Rec: 02/01/17 15:18 [facility] [id number]) Pain Assessment Pain Present Reports Pain Lower Back Pain Intensity 8 Description Chronic Scale Used Numeric (1 - 10) Pain Intervention Position Distraction Neurological Assessment Eye Opening Spontaneous Motor Obeys Commands Verbal Oriented Coma Scale Total 15 Neurologic Status Alert Patient Orientation Person Place Time Arousable To Name Speech Pattern Normal rhythm Normal tone Slowed Delayed Monotone Mumbled Patient Behavior Appropriate Cooperative Fatigued Mood Description Flat Bilateral Pupil Reaction Brisk Pupil Size (mm) 4 Pupil [place] Equal All Four Limbs Strength Normal for Patient Checker In Strength Equal Push/Pull Equal Numbness/Tingling No Facial Symmetry Symmetrical Cardiovascular Assessment Signs and Symptoms Hypotension Heart Sounds S1 & S2 Rhythm Regular Pulse Assessment Method Auscultation Right Radial 2+ Left Radial 2+ Right Dorsalis Pedis 1+ Left Dorsalis Pedis 1+ Jugular Vein Distention None Capillary Refill < 3 Seconds Circulatory Tenderness Description None Generalized Type Non-Pitting Bilateral Lower Extremity Type None Mechanical Prophylaxis Yes Documentation of Mechanical Device Graduated compression elastic hosiery Mechanical Device Location Bilateral Lower Extremities Has Confirmed Diagnosis of DVT, PE or No VTE VTE Prophylaxis SQ Treatment Mechanical Prophylaxis Cardiac Monitoring Monitor Number [id number] Strip placed in Chart Yes History Reviewed Yes Memory Cleared Yes Alarms/Limits HR Alarm 125/50 EKG Method Telemetry Respiratory Assessment Respiratory Symptoms Unable to Lie Flat Effort Spontaneous Non-Labored Depth Normal Respiratory Pattern Regular Chest Shape Normal Expansion Symmetrical All Lung Goncalves Clear Oxygen Delivery Method Nasal Cannula Oxygen Flow Rate (LPM) 3 Cough Description Involuntary Non-Productive Dry Cough Frequency Intermittent Gastrointestinal Assessment Abdomen Description Soft Non-Tender Large Ascitic 3 or more loose stools, in less than 24 No hours Nausea/Vomiting Presence None All Four Quadrants Active Flatus Presence Present Genitourinary Assessment Genitourinary Symptoms None Bladder Pattern Incontinent Voiding Method Bedside Commode Urinal Urine Appearance Clear Color Bright Yellow Odor Normal Integumentary Assessment Fingernail Color Yellow Nail Bed Appearance [place] Temperature Warm Moisture Dry Turgor Normal Color Jaundiced All Pressure Points Assessed Yes Evidence of Incision/Wounds/Breakdown Yes Mucous membranes moist, pink and intact Yes Oral Cavity Missing Teeth Musculoskeletal Assessment Musculoskeletal Symptoms Generalized Weakness Document 02/01/17 20:37 [facility] (Rec: 02/01/17 22:02 [facility] [id number]) Pain Assessment Pain Present Reports Pain Abdomen Pain Intensity 9 Description Ache Scale Used Numeric (1 - 10) Pain Intervention Medication Comment Patient given PO pain medication per request as ordered. Neurological Assessment Eye Opening Spontaneous Motor Obeys Commands Verbal Oriented Coma Scale Total 15 Neurologic Status Alert Patient Orientation Person Place Time Arousable To Name Speech Pattern Normal rhythm Normal tone Slowed Monotone Mumbled Patient Behavior Appropriate Cooperative Mood Description Flat Bilateral Pupil Reaction Reactive Pupil Size (mm) 4 Pupil [place] Equal All Four Limbs Strength Normal for Patient Checker In Strength Equal Push/Pull Equal Numbness/Tingling No Facial Symmetry Symmetrical Neurological Comment: Patient's tounge midline without devation. Cardiovascular Assessment Signs and Symptoms None Heart Sounds S1 & S2 Rhythm Regular Right Radial 2+ Left Radial 2+ Right Dorsalis Pedis 2+ Left Dorsalis Pedis 2+ Right Posterior Tibialis 1+ Left Posterior Tibialis 1+ Jugular Vein Distention None Capillary Refill < 3 Seconds Circulatory Tenderness Description None Generalized Type None Bilateral Lower Extremity Type None Chest Pain Complaint No Mechanical Prophylaxis Yes Documentation of Mechanical Device Graduated compression elastic hosiery Mechanical Device Location Bilateral Lower Extremities Has Confirmed Diagnosis of DVT, PE or No VTE VTE Prophylaxis SQ Treatment Mechanical Prophylaxis Cardiac Monitoring Monitor Number [id number] Strip placed in Chart Yes History Reviewed Yes Memory Cleared Yes Alarms/Limits HR Alarm 125/50 SBP Alarm 150/90 SPO2 Alarm 100/88 Heart Rate 80 Rhythm Sinus Rhythm Bundle Branch Block [place] Interval 0.15 QRS Interval 0.13 QT Interval 0.37 Respiratory Assessment Respiratory Symptoms Unable to Lie Flat Effort Normal for Patient Spontaneous Non-Labored Depth Normal Respiratory Pattern Regular Chest Shape Normal Expansion Symmetrical Right Upper Lobe Clear Diminished Right Middle Lobe Clear Right Lower Lobe Clear Left Upper Lobe Clear Left Lower Lobe Clear Right Upper Lobe Clear Right Middle Lobe Clear Right Lower Lobe Fine Crackles Left Upper Lobe Clear Left Lower Lobe Fine Crackles Oxygen Delivery Method Nasal Cannula Oxygen Flow Rate (LPM) 3 Cough Description None Sputum Amount None Comment: . Gastrointestinal Assessment Abdomen Description Soft Large Tender Ascitic 3 or more loose stools, in less than 24 Yes: Medication induced hours Nausea/Vomiting Presence None GI Comment: Umbilical hernia noted. All Four Quadrants Active Flatus Presence Present Genitourinary Assessment Genitourinary Symptoms None Bladder Pattern Normal Voiding Method Bedside Commode Urinal Urine Appearance Clear Color Dark Yellow Odor Normal Bladder Distention None Suprapubic Tenderness with Palpation No Comment: . Integumentary Assessment Fingernail Color Yellow Nail Bed Appearance [place] Temperature Warm Moisture Dry Turgor Normal Color Jaundiced All Pressure Points Assessed Yes Evidence of Incision/Wounds/Breakdown Yes Mucous membranes moist, pink and intact Yes Oral Cavity Missing Teeth Integumentary Comment: . Musculoskeletal Assessment Musculoskeletal Symptoms Generalized Weakness Musculoskeletal Comment: . Document 02/02/17 00:10 [facility] (Rec: 02/02/17 00:27 [facility]CL [id number]) Pain Assessment Pain Present Reports No Pain Neurological Assessment Eye Opening Spontaneous Motor Obeys Commands Verbal Oriented Coma Scale Total 15 Cardiovascular Assessment Signs and Symptoms None Heart Sounds S1 & S2 Rhythm Regular Circulatory Tenderness Description None Chest Pain Complaint No Mechanical Prophylaxis Yes Documentation of Mechanical Device Graduated compression elastic hosiery Mechanical Device Location Bilateral Lower Extremities Has Confirmed Diagnosis of DVT, PE or No VTE VTE Prophylaxis SQ Treatment Mechanical Prophylaxis Cardiac Monitoring Monitor Number [id number] Strip placed in Chart Yes History Reviewed Yes Memory Cleared Yes Alarms/Limits HR Alarm 125/50 SBP Alarm 150/90 SPO2 Alarm 100/88 Heart Rate 75 Rhythm Sinus Rhythm Bundle Branch Block [place] Interval 0.16 QRS Interval 0.13 QT Interval 0.37 Respiratory Assessment Respiratory Symptoms Unable to Lie Flat Effort Normal for Patient Spontaneous Non-Labored Depth Normal Respiratory Pattern Regular Chest Shape Normal Expansion Symmetrical Right Upper Lobe Clear Right Middle Lobe Clear Right Lower Lobe Clear Left Upper Lobe Clear Left Lower Lobe Clear Right Upper Lobe Clear Right Middle Lobe Clear Right Lower Lobe Clear Diminished Left Upper Lobe Clear Left Lower Lobe Clear Diminished Oxygen Delivery Method Nasal Cannula Oxygen Flow Rate (LPM) 3 FIO2 (%) (%) 32 Cough Description None Cough Frequency Intermittent Sputum Amount None Comment: . Gastrointestinal Assessment Abdomen Description Soft Large Tender Ascitic 3 or more loose stools, in less than 24 Yes: Medication induced hours Nausea/Vomiting Presence None GI Comment: Umbilical hernia noted. All Four Quadrants Active Document 02/02/17 04:37 [facility] (Rec: 02/02/17 05:10 [facility] [id number]) Neurological Assessment Eye Opening Spontaneous Motor Obeys Commands Verbal Oriented Coma Scale Total 15 Cardiovascular Assessment Signs and Symptoms None Heart Sounds S1 & S2 Rhythm Regular Chest Pain Complaint No Mechanical Prophylaxis Yes Documentation of Mechanical Device Graduated compression elastic hosiery Mechanical Device Location Bilateral Lower Extremities Has Confirmed Diagnosis of DVT, PE or No VTE VTE Prophylaxis SQ Treatment Mechanical Prophylaxis Cardiac Monitoring Monitor Number [id number] Strip placed in Chart Yes History Reviewed Yes Memory Cleared Yes Alarms/Limits HR Alarm 125/50 SBP Alarm 150/90 SPO2 Alarm 100/88 Heart Rate 68 Rhythm Sinus Rhythm Bundle Branch Block [place] Interval 0.17 QRS Interval 0.11 QT Interval 0.42 Respiratory Assessment Respiratory Symptoms Unable to Lie Flat Effort Normal for Patient Spontaneous Non-Labored Depth Normal Respiratory Pattern Regular Chest Shape Normal Expansion Symmetrical All Lung Goncalves Clear Right Upper Lobe Clear Right Middle Lobe Clear Right Lower Lobe Clear Left Upper Lobe Clear Left Lower Lobe Clear Right Upper Lobe Clear Right Middle Lobe Clear Right Lower Lobe Clear Diminished Left Upper Lobe Clear Left Lower Lobe Clear Diminished Oxygen Delivery Method Nasal Cannula Oxygen Flow Rate (LPM) 3 FIO2 (%) (%) 32 Cough Description None Sputum Amount None Comment: . Gastrointestinal Assessment Abdomen Description Soft Large Tender Ascitic 3 or more loose stools, in less than 24 Yes: Medication induced hours Nausea/Vomiting Presence None GI Comment: Umbilical hernia noted. All Four Quadrants Active Document 02/02/17 09:04 [facility] (Rec: 02/02/17 09:09 [facility] [id number]) Pain Assessment Pain Present Reports Pain Generalized Pain Intensity 9 Description Ache Scale Used Numeric (1 - 10) Pain Intervention Medication Neurological Assessment Eye Opening Spontaneous Motor Obeys Commands Verbal Oriented Coma Scale Total 15 Neurologic Status Alert Patient Orientation Person Place Time Arousable To Name Speech Pattern Normal rhythm Normal tone Slowed Monotone Mumbled Patient Behavior Appropriate Cooperative Mood Description Flat Bilateral Pupil Reaction Reactive Pupil Size (mm) 3 Pupil [place] Equal All Four Limbs Strength Normal for Patient Checker In Strength Equal Push/Pull Equal Numbness/Tingling No Facial Symmetry Symmetrical Neurological Comment: Patient's tounge midline without devation. Cardiovascular Assessment Signs and Symptoms None Heart Sounds S1 & S2 Pulse Rate 63 Right Radial 2+ Left Radial 2+ Right Dorsalis Pedis 2+ Left Dorsalis Pedis 2+ Right Posterior Tibialis 1+ Left Posterior Tibialis 1+ Jugular Vein Distention None Capillary Refill < 3 Seconds Circulatory Tenderness Description None Generalized Type None Bilateral Lower Extremity Type None Chest Pain Complaint No Mechanical Prophylaxis Yes Documentation of Mechanical Device Graduated compression elastic hosiery Mechanical Device Location Bilateral Lower Extremities Has Confirmed Diagnosis of DVT, PE or No VTE VTE Prophylaxis SQ Treatment Mechanical Prophylaxis Cardiac Monitoring Monitor Number [id number] Strip placed in Chart Yes History Reviewed Yes Memory Cleared Yes Alarms/Limits HR Alarm 125/50 SBP Alarm 150/90 SPO2 Alarm 100/88 Heart Rate 64 EKG Method Telemetry Rhythm Sinus Rhythm Bundle Branch Block [place] Interval 0.14 QRS Interval 0.14 QT Interval 0.35 Pacemaker Assessment Cardiac Comment: . Respiratory Assessment Respiratory Symptoms Unable to Lie Flat Effort Normal for Patient Spontaneous Non-Labored Depth Normal Respiratory Pattern Regular Chest Shape Normal Expansion Symmetrical All Lung Goncalves Clear Right Upper Lobe Clear Right Middle Lobe Clear Right Lower Lobe Clear Left Upper Lobe Clear Left Lower Lobe Clear Right Upper Lobe Clear Right Middle Lobe Clear Right Lower Lobe Clear Diminished Left Upper Lobe Clear Left Lower Lobe Clear Diminished Oxygen Delivery Method Nasal Cannula Oxygen Flow Rate (LPM) 3 FIO2 (%) (%) 32 Cough Description None Cough Frequency Intermittent Sputum Amount None Color Cream Consistency Thick Comment: . Gastrointestinal Assessment Abdomen Description Soft Large Tender Ascitic 3 or more loose stools, in less than 24 Yes: Medication induced hours Nausea/Vomiting Presence None GI Comment: Umbilical hernia noted. All Four Quadrants Active Flatus Presence Present Genitourinary Assessment Genitourinary Symptoms None Bladder Pattern Normal Voiding Method Bedside Commode Urinal Urine Appearance Clear Color Dark Yellow Odor Normal Bladder Distention None Suprapubic Tenderness with Palpation No Comment: . Integumentary Assessment Fingernail Color Yellow Nail Bed Appearance [place] Temperature Warm Moisture Dry Turgor Normal Color Jaundiced All Pressure Points Assessed Yes Evidence of Incision/Wounds/Breakdown Yes Mucous membranes moist, pink and intact Yes Oral Cavity Missing Teeth Integumentary Comment: . Musculoskeletal Assessment Musculoskeletal Symptoms Generalized Weakness Musculoskeletal Comment: . Document 02/02/17 12:26 [facility] (Rec: 02/02/17 12:30 [facility] [id number]) Neurological Assessment Eye Opening Spontaneous Motor Obeys Commands Verbal Oriented Coma Scale Total 15 Neurologic Status Alert Patient Orientation Person Place Time Arousable To Name Speech Pattern Normal rhythm Normal tone Slowed Monotone Mumbled Patient Behavior Appropriate Cooperative Mood Description Flat Bilateral Pupil Reaction Reactive Pupil Size (mm) 3 Pupil [place] Equal All Four Limbs Strength Normal for Patient Checker In Strength Equal Push/Pull Equal Numbness/Tingling No Facial Symmetry Symmetrical Neurological Comment: Patient's tounge midline without devation. Cardiovascular Assessment Signs and Symptoms None Heart Sounds S1 & S2 Pulse Rate 68 Right Radial 2+ Left Radial 2+ Right Dorsalis Pedis 2+ Left Dorsalis Pedis 2+ Right Posterior Tibialis 1+ Left Posterior Tibialis 1+ Jugular Vein Distention None Capillary Refill < 3 Seconds Circulatory Tenderness Description None Generalized Type None Bilateral Lower Extremity Type None Chest Pain Complaint No Mechanical Prophylaxis Yes Documentation of Mechanical Device Graduated compression elastic hosiery Mechanical Device Location Bilateral Lower Extremities Reason Mechanical Device Not Applied Refused by patient Has Confirmed Diagnosis of DVT, PE or No VTE VTE Prophylaxis SQ Treatment Mechanical Prophylaxis Cardiac Monitoring Monitor Number [id number] Strip placed in Chart Yes History Reviewed Yes Memory Cleared Yes Alarms/Limits HR Alarm 125/50 SBP Alarm 150/90 SPO2 Alarm 100/88 Heart Rate 68 EKG Method Telemetry Rhythm Sinus Rhythm Bundle Branch Block [place] Interval 0.11 QRS Interval 0.11 QT Interval 0.35 Respiratory Assessment Respiratory Symptoms Unable to Lie Flat Effort Normal for Patient Spontaneous Non-Labored Depth Normal Respiratory Pattern Regular Chest Shape Normal Expansion Symmetrical All Lung Goncalves Clear Oxygen Delivery Method Nasal Cannula Oxygen Flow Rate (LPM) 3 FIO2 (%) (%) 32 Cough Description None Cough Frequency Intermittent Sputum Amount None Gastrointestinal Assessment Abdomen Description Soft Large Tender Ascitic 3 or more loose stools, in less than 24 Yes: lactulose given. hours Nausea/Vomiting Presence None GI Comment: Umbilical hernia noted. All Four Quadrants Active Genitourinary Assessment Genitourinary Symptoms None Bladder Pattern Normal Voiding Method Bedside Commode Urinal Urine Appearance Clear Color Dark Yellow Odor Normal Comment: . Integumentary Assessment Fingernail Color Yellow Nail Bed Appearance [place] Temperature Warm Moisture Dry Turgor Normal Color Jaundiced All Pressure Points Assessed Yes Evidence of Incision/Wounds/Breakdown Yes Mucous membranes moist, pink and intact Yes Oral Cavity Missing Teeth Integumentary Comment: . Musculoskeletal Assessment Musculoskeletal Symptoms Generalized Weakness Musculoskeletal Comment: PT consulted. . Document 02/02/17 17:13 CAM (Rec: 02/02/17 17:15 CAM [id number]) Pain Assessment Pain Present Reports Pain Generalized Pain Intensity 9 Description Ache Scale Used Numeric (1 - 10) Pain Intervention Medication Neurological Assessment Eye Opening Spontaneous Motor Obeys Commands Verbal Oriented Coma Scale Total 15 Neurologic Status Alert Patient Orientation Person Place Time Arousable To Name Speech Pattern Normal rhythm Normal tone Slowed Monotone Mumbled Patient Behavior Uncooperative Mood Description Flat Bilateral Pupil Reaction Reactive Pupil Size (mm) 3 Pupil [place] Equal All Four Limbs Strength Normal for Patient Checker In Strength Equal Push/Pull Equal Numbness/Tingling No Facial Symmetry Symmetrical Neurological Comment: Patient's tounge midline without devation. Cardiovascular Assessment Signs and Symptoms None Heart Sounds S1 & S2 Pulse Rate 78 Right Radial 2+ Left Radial 2+ Right Dorsalis Pedis 2+ Left Dorsalis Pedis 2+ Right Posterior Tibialis 1+ Left Posterior Tibialis 1+ Jugular Vein Distention None Capillary Refill < 3 Seconds Circulatory Tenderness Description None Generalized Type None Bilateral Lower Extremity Type None Chest Pain Complaint No Mechanical Prophylaxis Yes Documentation of Mechanical Device Graduated compression elastic hosiery Mechanical Device Location Bilateral Lower Extremities Reason Mechanical Device Not Applied Refused by patient Has Confirmed Diagnosis of DVT, PE or No VTE VTE Prophylaxis SQ Treatment Mechanical Prophylaxis Cardiac Monitoring Monitor Number [id number] Strip placed in Chart Yes History Reviewed Yes Memory Cleared Yes Alarms/Limits HR Alarm 125/50 SBP Alarm 150/90 SPO2 Alarm 100/88 Heart Rate 78 EKG Method Telemetry Rhythm Sinus Rhythm Bundle Branch Block [place] Interval 0.16 QRS Interval 0.10 QT Interval 0.35 Pacemaker Assessment Cardiac Comment: . Respiratory Assessment Respiratory Symptoms Unable to Lie Flat Effort Normal for Patient Spontaneous Non-Labored Depth Normal Respiratory Pattern Regular Chest Shape Normal Expansion Symmetrical All Lung Goncalves Clear Right Upper Lobe Clear Right Middle Lobe Clear Right Lower Lobe Clear Left Upper Lobe Clear Left Lower Lobe Clear Right Upper Lobe Clear Right Middle Lobe Clear Right Lower Lobe Clear Diminished Left Upper Lobe Clear Left Lower Lobe Clear Diminished Oxygen Delivery Method Nasal Cannula Oxygen Flow Rate (LPM) 3 FIO2 (%) (%) 32 Cough Description None Cough Frequency Intermittent Sputum Amount None Color Cream Consistency Thick Comment: . Gastrointestinal Assessment Abdomen Description Soft Large Tender Ascitic 3 or more loose stools, in less than 24 Yes: lactulose given. hours Nausea/Vomiting Presence None GI Comment: Umbilical hernia noted. All Four Quadrants Active Flatus Presence Present Genitourinary Assessment Genitourinary Symptoms None Bladder Pattern Normal Voiding Method Bedside Commode Urinal Urine Appearance Clear Color Dark Yellow Odor Normal Bladder Distention None Suprapubic Tenderness with Palpation No Comment: . Integumentary Assessment Fingernail Color Yellow Nail Bed Appearance [place] Temperature Warm Moisture Dry Turgor Normal Color Jaundiced All Pressure Points Assessed Yes Evidence of Incision/Wounds/Breakdown Yes Mucous membranes moist, pink and intact Yes Oral Cavity Missing Teeth Integumentary Comment: . Musculoskeletal Assessment Musculoskeletal Symptoms Generalized Weakness Musculoskeletal Comment: PT consulted. . Document 02/02/17 19:52 JCL (Rec: 02/02/17 21:43 JCL [id number]) Pain Assessment Pain Present Reports No Pain Neurological Assessment Eye Opening Spontaneous Motor Obeys Commands Verbal Oriented Coma Scale Total 15 Neurologic Status Alert Patient Orientation Person Place Time Arousable To Name Speech Pattern Normal rhythm Normal tone Slowed Monotone Mumbled Patient Behavior Appropriate Cooperative Mood Description Flat Bilateral Pupil Reaction Reactive Pupil Size (mm) 4 Pupil [place] Equal All Four Limbs Strength Normal for Patient Checker In Strength Equal Push/Pull Equal Numbness/Tingling No Facial Symmetry Symmetrical Neurological Comment: Patient's tounge midline without devation. Cardiovascular Assessment Signs and Symptoms None Heart Sounds S1 & S2 Rhythm Regular Right Radial 2+ Left Radial 2+ Right Dorsalis Pedis 1+ Left Dorsalis Pedis 1+ Right Posterior Tibialis 1+ Left Posterior Tibialis 1+ Jugular Vein Distention None Capillary Refill < 3 Seconds Circulatory Tenderness Description None Generalized Type None Bilateral Lower Extremity Type None Chest Pain Complaint No Mechanical Prophylaxis Yes Documentation of Mechanical Device Graduated compression elastic hosiery Mechanical Device Location Bilateral Lower Extremities Reason Mechanical Device Not Applied Refused by patient Has Confirmed Diagnosis of DVT, PE or No VTE VTE Prophylaxis SQ Treatment Mechanical Prophylaxis Cardiac Monitoring Monitor Number [id number] Strip placed in Chart Yes History Reviewed Yes Memory Cleared Yes Alarms/Limits HR Alarm 125/50 SBP Alarm 150/90 SPO2 Alarm 100/88 Heart Rate 72 EKG Method Telemetry Rhythm Sinus Rhythm Bundle Branch Block [place] Interval 0.14 QRS Interval 0.14 QT Interval 0.37 Respiratory Assessment Respiratory Symptoms Unable to Lie Flat Effort Normal for Patient Spontaneous Non-Labored Depth Normal Respiratory Pattern Regular Chest Shape Normal Expansion Symmetrical All Lung Goncalves Clear Right Upper Lobe Clear Diminished Right Middle Lobe Clear Diminished Right Lower Lobe Clear Diminished Left Upper Lobe Clear Diminished Left Lower Lobe Clear Diminished Right Upper Lobe Clear Right Middle Lobe Clear Right Lower Lobe Clear Left Upper Lobe Clear Left Lower Lobe Clear Oxygen Delivery Method Nasal Cannula Oxygen Flow Rate (LPM) 3 FIO2 (%) (%) 32 Cough Description None Cough Frequency Intermittent Sputum Amount None Comment: . Gastrointestinal Assessment Abdomen Description Soft Large Tender Ascitic 3 or more loose stools, in less than 24 Yes: lactulose given. hours Nausea/Vomiting Presence None GI Comment: Umbilical hernia noted. All Four Quadrants Active Genitourinary Assessment Genitourinary Symptoms None Bladder Pattern Normal Voiding Method Bedside Commode Urinal Urine Appearance Clear Color Dark Yellow Odor Normal Bladder Distention None Suprapubic Tenderness with Palpation No Comment: . Integumentary Assessment Fingernail Color Yellow Nail Bed Appearance [place] Temperature Warm Moisture Dry Turgor Normal Color Jaundiced All Pressure Points Assessed Yes Evidence of Incision/Wounds/Breakdown Yes Mucous membranes moist, pink and intact Yes Oral Cavity Missing Teeth Integumentary Comment: . Musculoskeletal Assessment Musculoskeletal Symptoms Generalized Weakness Musculoskeletal Comment: PT consulted. . Document 02/03/17 00:20 JCL (Rec: 02/03/17 00:49 JCL [id number]) Neurological Assessment Eye Opening Spontaneous Motor Obeys Commands Verbal Oriented Coma Scale Total 15 Cardiovascular Assessment Signs and Symptoms None Heart Sounds S1 & S2 Rhythm Regular Chest Pain Complaint No Mechanical Prophylaxis Yes Documentation of Mechanical Device Graduated compression elastic hosiery Mechanical Device Location Bilateral Lower Extremities Reason Mechanical Device Not Applied Refused by patient Has Confirmed Diagnosis of DVT, PE or No VTE VTE Prophylaxis SQ Treatment Mechanical Prophylaxis Cardiac Monitoring Monitor Number [id number] Strip placed in Chart Yes History Reviewed Yes Memory Cleared Yes Alarms/Limits HR Alarm 125/50 SBP Alarm 150/90 SPO2 Alarm 100/88 Heart Rate 71 EKG Method Telemetry Rhythm Sinus Rhythm WA Interval 0.16 QRS Interval 0.12 QT Interval 0.36 Respiratory Assessment Respiratory Symptoms Unable to Lie Flat Effort Normal for Patient Spontaneous Non-Labored Depth Normal Respiratory Pattern Regular Right Upper Lobe Clear Diminished Right Middle Lobe Clear Diminished Right Lower Lobe Clear Diminished Left Upper Lobe Clear Diminished Left Lower Lobe Clear Diminished Right Upper Lobe Clear Right Middle Lobe Clear Right Lower Lobe Clear Left Upper Lobe Clear Left Lower Lobe Clear Oxygen Delivery Method Nasal Cannula Oxygen Flow Rate (LPM) 3 FIO2 (%) (%) 32 Cough Description None Cough Frequency Intermittent Sputum Amount None Comment: . Gastrointestinal Assessment Abdomen Description Soft Large Tender Ascitic 3 or more loose stools, in less than 24 Yes: lactulose given. hours Nausea/Vomiting Presence None GI Comment: Umbilical hernia noted. All Four Quadrants Active Flatus Presence Present Document 02/03/17 04:14 JCL (Rec: 02/03/17 04:40 JCL [id number]) Pain Assessment Pain Present Reports No Pain Neurological Assessment Eye Opening Spontaneous Motor Obeys Commands Verbal Oriented Coma Scale Total 15 Cardiovascular Assessment Signs and Symptoms None Heart Sounds S1 & S2 Rhythm Regular Chest Pain Complaint No Mechanical Prophylaxis Yes Documentation of Mechanical Device Graduated compression elastic hosiery Mechanical Device Location Bilateral Lower Extremities Reason Mechanical Device Not Applied Refused by patient Has Confirmed Diagnosis of DVT, PE or No VTE VTE Prophylaxis SQ Treatment Mechanical Prophylaxis Cardiac Monitoring Monitor Number [id number] Strip placed in Chart Yes History Reviewed Yes Memory Cleared Yes Alarms/Limits HR Alarm 125/50 SBP Alarm 150/90 SPO2 Alarm 100/88 Heart Rate 79 EKG Method Telemetry Rhythm Sinus Rhythm Bundle Branch Block [place] Interval 0.15 QRS Interval 0.13 QT Interval 0.34 Respiratory Assessment Respiratory Symptoms Unable to Lie Flat Effort Normal for Patient Spontaneous Non-Labored Depth Normal Respiratory Pattern Regular Chest Shape Normal Expansion Symmetrical All Lung Goncalves Clear Right Upper Lobe Clear Right Middle Lobe Clear Right Lower Lobe Clear Diminished Left Upper Lobe Clear Left Lower Lobe Clear Diminished Right Upper Lobe Clear Right Middle Lobe Clear Right Lower Lobe Clear Diminished Left Upper Lobe Clear Left Lower Lobe Clear Diminished Oxygen Delivery Method Nasal Cannula Oxygen Flow Rate (LPM) 3 FIO2 (%) (%) 32 Cough Description None Cough Frequency Intermittent Sputum Amount None Color Cream Consistency Thick Comment: . Document 02/03/17 07:20 CARLIE (Rec: 02/03/17 08:00 CARLIE [id number]) Pain Assessment Pain Present Reports Pain Lower Back Pain Intensity 9 Description Ache Chronic Scale Used Numeric (1 - 10) Description of Site lower back radiating bilaterally into hips Pain Intervention Medication Position Neurological Assessment Eye Opening Spontaneous Motor Obeys Commands Verbal Oriented Coma Scale Total 15 Neurologic Status Alert Patient Orientation Person Place Time Arousable To Name Speech Pattern Normal rate Normal rhythm Normal tone Appropriate Clear Coherent Patient Behavior Appropriate Cooperative Mood Description Calm Relaxed Bilateral Pupil Reaction Reactive Pupil Size (mm) 2 Pupil [place] Equal Scleral Edema No All Four Limbs Strength Normal for Patient Checker In Strength Equal Push/Pull Equal Numbness/Tingling No Facial Symmetry Symmetrical Cardiovascular Assessment Signs and Symptoms None Heart Sounds S1 & S2 Right Radial 2+ Left Radial 2+ Right Dorsalis Pedis 1+ Left Dorsalis Pedis 1+ Right Posterior Tibialis 1+ Left Posterior Tibialis 1+ Jugular Vein Distention None Capillary Refill < 3 Seconds Circulatory Tenderness Description None Generalized Type None Bilateral Lower Extremity Type None Mechanical Prophylaxis Yes Documentation of Mechanical Device Graduated compression elastic hosiery Mechanical Device Location Bilateral Lower Extremities Reason Mechanical Device Not Applied Refused by patient Has Confirmed Diagnosis of DVT, PE or No VTE VTE Prophylaxis SQ Treatment Mechanical Prophylaxis Cardiac Monitoring Monitor Number [id number] Strip placed in Chart Yes History Reviewed Yes Memory Cleared Yes Alarms/Limits HR Alarm 125/50 SBP Alarm 150/90 SPO2 Alarm 100/88 Heart Rate 73 EKG Method Telemetry Rhythm Sinus Rhythm [place] Interval 0.11 QRS Interval 0.09 QT Interval 0.33 Respiratory Assessment Respiratory Symptoms None Effort Normal for Patient Spontaneous Non-Labored Depth Normal Respiratory Pattern Regular Chest Shape Normal Expansion Symmetrical All Lung Goncalves Clear Oxygen Delivery Method Nasal Cannula Oxygen Flow Rate (LPM) 3 Cough Description None Sputum Amount None Gastrointestinal Assessment Abdomen Description Soft Large Tender Ascitic 3 or more loose stools, in less than 24 No hours Nausea/Vomiting Presence None All Four Quadrants Active Genitourinary Assessment Genitourinary Symptoms None Bladder Pattern Normal Voiding Method Bedside Commode Bladder Distention None Suprapubic Tenderness with Palpation No Integumentary Assessment Fingernail Color Yellow Nail Bed Appearance [place] Temperature Warm Moisture Dry Turgor Normal Color Jaundiced All Pressure Points Assessed Yes Evidence of Incision/Wounds/Breakdown Yes Mucous membranes moist, pink and intact Yes Oral Cavity Missing Teeth Musculoskeletal Assessment Musculoskeletal Symptoms Generalized Weakness Document 02/03/17 11:03 CARLIE (Rec: 02/03/17 11:08 CARLIE [id number]) Pain Assessment Pain Present Reports Pain Lower Back Pain Intensity 6 Description Ache Description of Site lower back radiating bilaterally into hips Pain Intervention Position Neurological Assessment Eye Opening Spontaneous Motor Obeys Commands Verbal Oriented Coma Scale Total 15 Neurologic Status Alert Patient Orientation Person Place Time Arousable To Name Speech Pattern Normal rate Normal rhythm Normal tone Appropriate Clear Coherent Patient Behavior Appropriate Cooperative Mood Description Calm Relaxed Bilateral Pupil Reaction Reactive Pupil Size (mm) 2 Pupil [place] Equal Scleral Edema No All Four Limbs Strength Normal for Patient Checker In Strength Equal Push/Pull Equal Numbness/Tingling No Facial Symmetry Symmetrical Cardiovascular Assessment Signs and Symptoms None Generalized Type None Bilateral Lower Extremity Type None Mechanical Prophylaxis Yes Documentation of Mechanical Device Graduated compression elastic hosiery Has Confirmed Diagnosis of DVT, PE or No VTE VTE Prophylaxis SQ Treatment Mechanical Prophylaxis TAR Intake Start: 02/01/17 12: 12 Freq: Status: Discharge Document 02/01/17 12:12 KMS (Rec: 02/01/17 12:12 KMS [facility] [place] TAR.IO Rbcs Leuko Poor As-1 Unit [id number] Intake, Blood Product Amount 0 Document 02/01/17 14:53 KMS (Rec: 02/01/17 14:[address] [facility] [place]09) TAR.IO Rbcs Leuko Poor As-1 Unit [id number] Intake, Blood Product Amount 310 Document 02/01/17 15:08 KMS (Rec: 02/01/17 15:[address] [facility] [place]09) TAR.IO Rbcs Leuko Poor As-1 Unit [id number] Intake, Blood Product Amount 0 Document 02/01/17 17:19 KMS (Rec: 02/01/17 17:20 KMS [id number]) TAR.IO Rbcs Leuko Poor As-1 Unit [id number] Intake, Blood Product Amount 297 TAR Vital Signs Start: 02/01/17 12: 12 Freq: Status: Discharge Document 02/01/17 12:12 KMS (Rec: 02/01/17 12:[address] [facility] [place]09) TAR Vital Signs Temperature (97.6 F-99.6 F) 97.3 F L Temperature Source Axillary Pulse Location Apical Pulse Rate 72 Rhythm Regular Strength Normal Method Palpation Respiratory Rate 16 Depth Normal Effort Normal for Patient Respiratory Pattern Regular Pulse Oximetry (95-100) 99 Blood Pressure Location Left Arm Blood Pressure 101/63 Blood Pressure Mean (mm Hg) 75 Source Automatic Cuff Position HOB Elevated Product Transfusion Rate (mls/hr) 50 Transfusion Completed?* No Document 02/01/17 12:27 KMS (Rec: 02/01/17 12:[address] [facility] [place]09) TAR Vital Signs Temperature (97.6 F-99.6 F) 96.6 F L Temperature Source Axillary Pulse Location Apical Pulse Rate 76 Rhythm Regular Strength Normal Method Auscultation Respiratory Rate 18 Depth Normal Effort Spontaneous Non-Labored Respiratory Pattern Regular Pulse Oximetry (95-100) 95 Blood Pressure Location Left Arm Blood Pressure 103/56 Blood Pressure Mean (mm Hg) 71 Source Automatic Cuff Position HOB Elevated Product Transfusion Rate (mls/hr) 125 Document 02/01/17 14:53 KMS (Rec: 02/01/17 14:54 KMS [id number]) TAR Vital Signs Temperature (97.6 F-99.6 F) 97.4 F L Temperature Source Axillary Pulse Location Apical Pulse Rate 78 Rhythm Regular Strength Normal Method Auscultation Respiratory Rate 14 Depth Normal Effort Spontaneous Non-Labored Respiratory Pattern Regular Pulse Oximetry (95-100) 96 Blood Pressure Location Left Arm Blood Pressure 92/52 Blood Pressure Mean (mm Hg) 65 Source Automatic Cuff Position HOB Elevated Product Transfusion Rate (mls/hr) 0 Document 02/01/17 15:08 KMS (Rec: 02/01/17 15:[address] [facility] [place]09) TAR Vital Signs Temperature (97.6 F-99.6 F) 97.4 F L Temperature Source Axillary Pulse Location Apical Pulse Rate 78 Rhythm Regular Strength Normal Method Auscultation Respiratory Rate 14 Depth Normal Effort Spontaneous Non-Labored Respiratory Pattern Regular Pulse Oximetry (95-100) 96 Blood Pressure Location Left Arm Blood Pressure 92/52 Blood Pressure Mean (mm Hg) 65 Source Automatic Cuff Position HOB Elevated Product Transfusion Rate (mls/hr) 50 Document 02/01/17 15:23 KMS (Rec: 02/01/17 15:25 KMS [id number]) TAR Vital Signs Temperature (97.6 F-99.6 F) 98.6 F Temperature Source Axillary Pulse Location Apical Pulse Rate 76 Rhythm Regular Strength Normal Method Auscultation Respiratory Rate 16 Depth Normal Effort Spontaneous Non-Labored Respiratory Pattern Regular Pulse Oximetry (95-100) 96 Blood Pressure Location Left Arm Blood Pressure 99/54 Blood Pressure Mean (mm Hg) 69 Source Automatic Cuff Position HOB Elevated Product Transfusion Rate (mls/hr) 150 Document 02/01/17 17:20 KMS (Rec: 03/07/17 17:[address] [facility] [place]09) TAR Vital Signs Temperature (97.6 F-99.6 F) 96 F L Temperature Source Axillary Pulse Location Apical Pulse Rate 78 Rhythm Regular Strength Normal Method Auscultation Respiratory Rate 14 Depth Normal Effort Spontaneous Non-Labored Respiratory Pattern Regular Pulse Oximetry (95-100) 94 L Blood Pressure Location Left Arm Blood Pressure 107/69 Blood Pressure Mean (mm Hg) 81 Source Automatic Cuff Position Sitting Product Transfusion Rate (mls/hr) 0 Teaching Record Start: 01/30/17 01: 58 Freq: Q12H Status: Discharge Document 01/30/17 02:38 ALS (Rec: 01/30/17 02:41 ALS [id number]) Teaching Record: General Education Topics Hospital Environment Equipment Use Response Reinforcement needed Methods Discussion Recipient Patient Education Provided: Details This Rn reviewed call light with patient and bed alarm. Document 01/30/17 09:44 [facility] (Rec: 01/30/17 10:23 [id number] Teaching Record: General Education Topics Hospital Environment Methods Discussion Recipient Patient Education Provided: Details ORIENTED PATIENT TO 2N ENVIRONMENT. PATIENT UNABLE TO VERABLIZE UNDERSTANDING Document 01/30/17 21:10 SAG (Rec: 01/30/17 22:32 SAG [id number]) Teaching Record: General Education Topics Medications Disease Process Hospital Environment Methods Discussion Recipient Patient Education Provided: Details Educated pt on medications and poc. educated pt on use of call light for needs Document 01/31/17 08:00 KMS (Rec: 01/31/17 11:[address] [facility] [place]09) Teaching Record: General Education Topics Medications Hospital Environment Diet Exercise/Activity Response Verbalize understanding Methods Discussion Recipient Patient Education Provided: Details Patient declines ambulation at this time. States he does get up to chair at home. Initiated contact precautions for history of ESBL in urine. Patient verbalizes understanding Document 01/31/17 20:59 JLK (Rec: 02/01/17 00:52 JLK [id number]) Teaching Record: General Education Topics Medications Hospital Environment Diet Response Verbalize understanding Methods Discussion Recipient Patient Family Document 02/01/17 08:00 KMS (Rec: 02/01/17 11:16 KMS [id number]) Teaching Record: General Education Topics Medications Disease Process Hospital Environment Diet Procedures/Tests Response Verbalize understanding Methods Discussion Recipient Patient Education Provided: Details REviewed plan of care for today, obtained consent for blood transfusion. Discussed morning medications Document 02/01/17 20:37 JCL (Rec: 02/01/17 22:02 JCL [id number]) Teaching Record: General Education Topics Medications Disease Process Hospital Environment Diet Response Verbalize understanding Methods Discussion Recipient Patient Education Provided: Details Patient educated on plan of care and evening medication. Document 02/02/17 09:04 CAM (Rec: 02/02/17 09:09 CAM [id number]) Teaching Record: General Education Topics Medications Disease Process Hospital Environment Diet Response Verbalize understanding Methods Discussion Recipient Patient Education Provided: Details Am medications, call light use , cardiac diet, use of bed exit alarm. Document 02/02/17 19:52 JCL (Rec: 02/02/17 21:43 JCL [id number]) Teaching Record: General Education Topics Medications Disease Process Response Reinforcement needed Recipient Patient Education Provided: Details Educated patient on plan of care and evening medications. Document 02/03/17 07:20 CARLIE (Rec: 02/03/17 08:00 CARLIE [id number]) Teaching Record: General Education Topics Medications Disease Process Response Reinforcement needed Recipient Patient Education Provided: Details Educated patient on plan of care and evening medications. Transfer Patient (Care Level Unchanged) Start: 01/30/17 05: 57 Freq: ONCE Status: Complete Document 01/30/17 09:44 [facility] (Rec: 01/30/17 10:23 [facility] [id number]) Transfusion, red blood cells Start: 02/01/17 07: 40 Freq: .STAT Status: Complete Document 02/01/17 12:26 KMS (Rec: 02/01/17 12:[address] [facility] [place]09) Blood Product Initiation Blood Type A (+) positive Administration Equipment Blood Filter Tubing Infusion Pump Infusion Rate (ml/hr) 50 Triage Start: 01/29/17 20: 31 Freq: Status: Complete Document 01/29/17 20:34 NNN (Rec: 01/29/17 20:46 NNN [id number]) Triage Chief Complaint triage ED Shortness of Breath/Dyspnea Patient Stated Complaint VIDA ONIEL 2 Description of Symptoms EMS was called to residence for pt with VIDA. pt family states that pt is hard to wake and difficult to wake up. pt arrives drowsy but oriented General Appearance alert in no apparent distress Work Related Injury? No Mode of arrival EMS Arrival via EMS [facility] Source patient EMS Limitations no limitations Ebola Risk: Travel/Contact With Anyone No From Affected Area/s Has Patient Experienced Ebola Symptoms No Temperature (97.6 F-99.6 F) 97.8 F Temperature Source Axillary Pulse Rate 80 Respiratory Rate 16 Blood Pressure 103/68 O2 Sat by Pulse Oximetry (95-100) 94 L Oxygen Delivery Nasal Cannula Height 1.96 m Weight 90.718 kg Weight Measurement Method Stated by Patient Pain Scale 0 Pain Scale Used Standard (1-10) Medical history arthritis cirrhosis COPD coronary artery disease DVT diabetes GERD GI bleed hepatitis hyperlipidemia hypertension liver disease other Additional surgical history PMH Transplants Psychiatric history anxiety depression Smoking Status Former smoker Smokeless Tobacco Status No Alcohol Use none Drug Use none Patient resides with/at Other Relative Safety Concerns Feels Safe At This Time Do you currently feel hopless, have No thoughts of self harm, or thoughts of harming others History of fall in last 14 days? No Father Family Member Living Status Hx Family Cardiac Disorders No Hx Family Respiratory Disorders No Hx Family Cancer No Hx Family GI Disease No Hx Family Endocrine Disorder No Hx Family Neuromuscular Dysfunction No Hx Family Neurologic Problems No Hx Family HEENT Problems No Hx Family Autoimmune Disease Problems No Mother Family Member Living Status Hx Family Cardiac Disorders Yes Hx Family Respiratory Disorders Yes Urinary catheter initiation/management Start: 01/30/17 06: 12 Freq: Q4H Status: Complete Document 01/30/17 06:13 WJS (Rec: 01/30/17 06:15 WJS [id number]) Urinary Catheter Assessment Barrera Inserted Using Sterile Technique Yes Urethral (Barrera) Date of Insertion 01/30/17 Indication catheter insertion strict urinary output measurement incontinence in patients with open sacral or perineal wounds Catheter Present on Admission No Size (Brazilian) 16 zimbabwean Patency Patent/Draining Catheter Securement Device in Place Yes Color Dark Yellow Odor Normal Document 01/30/17 09:44 [facility] (Rec: 01/30/17 10:23 [facility] [id number]) Urinary Catheter Assessment Urethral (Barrera) Date of Insertion 01/30/17 Indication catheter insertion strict urinary output measurement incontinence in patients with open sacral or perineal wounds Catheter Present on Admission No Size (Brazilian) 16 zimbabwean Patency Patent/Draining Catheter Securement Device in Place Yes Leg Bag Applied No Urine Appearance Clear Color Straw Odor Strong Output, Urine Amount 525 Document 01/30/17 21:10 SAG (Rec: 01/30/17 22:32 SAG [id number]) Urinary Catheter Assessment Urethral (Barrera) Date of Insertion 01/30/17 Indication catheter insertion strict urinary output measurement incontinence in patients with open sacral or perineal wounds Catheter Present on Admission No Size (Brazilian) 16 zimbabwean Patency Patent/Draining Catheter Securement Device in Place Yes Leg Bag Applied No Urine Appearance Clear Color Straw Odor Strong Document 01/31/17 00:00 SAG (Rec: 01/31/17 01:04 SAG [id number]) Urinary Catheter Assessment Urethral (Barrera) Date of Insertion 01/30/17 Indication catheter insertion strict urinary output measurement incontinence in patients with open sacral or perineal wounds Catheter Present on Admission No Size (Brazilian) 16 zimbabwean Patency Patent/Draining Catheter Securement Device in Place Yes Leg Bag Applied No Urine Appearance Clear Color Straw Odor Strong Document 01/31/17 05:02 SAG (Rec: 01/31/17 05:09 SAG [id number]) Urinary Catheter Assessment Urethral (Barrera) Date of Insertion 01/30/17 Indication catheter insertion strict urinary output measurement incontinence in patients with open sacral or perineal wounds Catheter Present on Admission No Size (Brazilian) 16 zimbabwean Patency Patent/Draining Catheter Securement Device in Place Yes Leg Bag Applied No Urine Appearance Clear Color Straw Odor Strong Document 01/31/17 08:00 KMS (Rec: 01/31/17 11:57 KMS [id number]) Urinary Catheter Assessment Urethral (Barrera) Indication catheter insertion strict urinary output measurement Catheter Present on Admission No Patency Patent/Draining Catheter Securement Device in Place Yes Urine Appearance Clear Sediment Color Bright Yellow Odor Strong Output, Urine Amount 250 Document 01/31/17 20:59 JLK (Rec: 02/01/17 00:52 JLK [id number]) Urinary Catheter Assessment Urethral (Barrera) Indication catheter insertion strict urinary output measurement Catheter Present on Admission No Patency Patent/Draining Catheter Securement Device in Place Yes Urine Appearance Clear Sediment Color Bright Yellow Document 02/01/17 00:01 JLK (Rec: 02/01/17 02:34 JLK [id number]) Urinary Catheter Assessment Urethral (Barrera) Indication catheter insertion strict urinary output measurement Catheter Present on Admission No Patency Patent/Draining Catheter Securement Device in Place Yes Urine Appearance Clear Sediment Document 02/01/17 04:15 JLK (Rec: 02/01/17 04:22 JLK [id number]) Urinary Catheter Assessment Urethral (Barrera) Indication catheter insertion strict urinary output measurement Catheter Present on Admission No Patency Patent/Draining Catheter Securement Device in Place Yes Urine Appearance Clear Sediment Document 02/01/17 09:00 KMS (Rec: 02/01/17 15:15 KMS [id number]) Urinary Catheter Assessment Urethral (Barrera) Catheter Present on Admission No Able to Void After Catheter Discontinued Yes Vital Signs Assessment Start: 01/29/17 20: 51 Freq: PROTOCOL Status: Discharge Document 01/29/17 21:21 NNN (Rec: 01/29/17 21:22 NN [id number]) ED Vital Signs Pain Reported No Pain Reported Pain Scale 0 Blood Pressure 93/68 Pulse Rate 72 Respiratory Rate 20 Pulse Oximetry (95-100) 99 Oxygen Delivery Aerosol Mask Oxygen Flow Rate (LPM) 8 Document 01/29/17 22:04 NNN (Rec: 01/29/17 22:06 [facility] [id number]) ED Vital Signs Pain Reported No Pain Reported Pain Scale 0 Blood Pressure 84/48 Pulse Rate 71 Respiratory Rate 16 Pulse Oximetry (95-100) 100 Oxygen Delivery Aerosol Mask Oxygen Flow Rate (LPM) 8 Document 01/29/17 22:57 NNN (Rec: 01/29/17 22:59 NNN [id number]) ED Vital Signs Pain Reported No Pain Reported Pain Scale 0 Blood Pressure 85/34 Pulse Rate 71 Respiratory Rate 20 Pulse Oximetry (95-100) 93 L Oxygen Delivery Nasal Cannula Oxygen Flow Rate (LPM) 2 Document 01/30/17 01:19 NNN (Rec: 01/30/17 01:20 NNN [id number]) ED Vital Signs Pain Reported No Pain Reported Pain Scale 0 Blood Pressure 113/79 Pulse Rate 71 Respiratory Rate 18 Pulse Oximetry (95-100) 96 Oxygen Delivery Nasal Cannula Oxygen Flow Rate (LPM) 3 Vital Signs Assessment Start: 01/30/17 01: 58 Freq: Q4H Status: Discharge Document 01/30/17 02:52 WJS (Rec: 01/30/17 03:00 WJS [id number]) Vital Signs with MEWS Temperature (97.6 F-99.6 F) 97.3 F L Temperature Source Axillary Pulse Rate 71 Respiratory Rate 12 Pulse Oximetry (95-100) 93 L Oxygen Delivery Nasal Cannula Oxygen Flow Rate (LPM) 2.5 Blood Pressure 110/69 Blood Pressure Location Left Arm Source Automatic Cuff Position HOB Elevated Vital Signs Assessment Start: 01/30/17 03: 32 Freq: Q4H Status: Discharge Document 01/30/17 05:42 WJS (Rec: 01/30/17 05:50 WJS [id number]) Vital Signs with MEWS Temperature (97.6 F-99.6 F) 96.5 F L Temperature Source Axillary Pulse Rate 67 Respiratory Rate 16 Pulse Oximetry (95-100) 90 L Oxygen Delivery Nasal Cannula Oxygen Flow Rate (LPM) 3 Blood Pressure 100/67 Blood Pressure Location Left Arm Source Automatic Cuff Position HOB Elevated Wound Assessment Start: 01/30/17 01: 58 Freq: Q8H Status: Discharge Document 01/30/17 02:41 ALS (Rec: 01/30/17 02:48 ALS [id number]) Wound Assessment Left Ear Wound Type Unknown Etiology Wound Length (cm) 0.9 Wound Width (cm) 0.9 Wound Depth (cm) 0 Wound Bed Appearance [place] Other Surrounding Tissue Temperature Warm Wound Drainage Description Dark Red Wound Drainage Amount 1 Scant Wound Drainage Odor No Odor Wound Dressing Status Open to Air Left Flank Wound Type Unknown Etiology Wound Length (cm) 2.3 Wound Width (cm) 2.0 Wound Depth (cm) 0 Wound Bed Appearance Other Surrounding Tissue Temperature Warm Wound Drainage Amount 1 None Wound Drainage Odor No Odor Wound Dressing Status Open to Air Coccyx 2 Wound Type Skin Tear Wound Length (cm) 2.1 Wound Width (cm) 0.1 Wound Depth (cm) 0 Wound Bed Appearance [place] Surrounding Tissue Temperature Warm Wound Drainage Amount 1 None Wound Drainage Odor No Odor Wound Dressing Status Dry & Intact Changed Wound Dressing Type Allevyn Wound Dressing Change Date 01/30/17 Patient Tolerance of Procedure Tolerated Well Premedicated Prior to Dressing Change No Coccyx 1 Wound Type Skin Tear Wound Length (cm) 0.2 Wound Width (cm) 0.1 Wound Depth (cm) 0 Wound Bed Appearance [place] Surrounding Tissue Temperature Warm Wound Dressing Status Dry & Intact Changed Wound Dressing Type Allevyn Wound Dressing Change Date 01/30/17 Patient Tolerance of Procedure Tolerated Well Premedicated Prior to Dressing Change No Document 01/30/17 09:44 [facility] (Rec: 01/30/17 10:23 [facility] [id number]) Wound Assessment Left Ear Wound Type Scratch Wound Surrounding Tissue Appearance ( Dry Periwound) 1 Intact Erythematous Surrounding Tissue Temperature Warm Wound Drainage Amount 1 None Wound Drainage Odor No Odor Wound Dressing Status Open to Air Document 01/30/17 17:11 [facility] (Rec: 01/30/17 17[id number] Wound Assessment Left Ear Wound Type Scratch Wound Surrounding Tissue Appearance ( Dry Periwound) 1 Intact Surrounding Tissue Temperature Warm Wound Drainage Amount 1 None Wound Drainage Odor No Odor Wound Dressing Status Open to Air Document 01/31/17 05:14 SAG (Rec: 01/31/17 05:14 SAG [id number]) Wound Assessment Left Ear Wound Type Scratch Wound Surrounding Tissue Appearance ( Dry Periwound) 1 Intact Surrounding Tissue Temperature Warm Wound Drainage Amount 1 None Wound Drainage Odor No Odor Wound Dressing Status Open to Air Coccyx 2 Wound Type No Open Wound Present Coccyx 1 Wound Type No Open Wound Present Document 01/31/17 08:00 KMS (Rec: 01/31/17 11:55 KMS [id number]) Wound Assessment Left Ear Wound Type Abrasion Wound Surrounding Tissue Appearance ( Dry Periwound) 1 Intact Surrounding Tissue Temperature Warm Wound Drainage Amount 1 None Wound Dressing Status Open to Air Left Flank Wound Type Puncture Wound Surrounding Tissue Appearance ( Dry Periwound) 1 Intact Surrounding Tissue Temperature Warm Wound Drainage Amount 1 None Wound Dressing Status Open to Air Topical Medication scab intact Document 01/31/17 20:59 JLK (Rec: 02/01/17 00:52 JLK [id number]) Wound Assessment Left Ear Wound Type scab Wound Surrounding Tissue Appearance ( Dry Periwound) 1 Surrounding Tissue Temperature Warm Wound Drainage Amount 1 None Wound Dressing Status Open to Air Left Flank Wound Type scab Wound Surrounding Tissue Appearance ( Dry Periwound) 1 Surrounding Tissue Temperature Warm Wound Drainage Amount 1 None Wound Dressing Status Open to Air Coccyx 2 Surrounding Tissue Temperature Warm Wound Drainage Amount 1 None Wound Dressing Status Open to Air Coccyx 1 Wound Surrounding Tissue Appearance ( Dry Periwound) 1 Surrounding Tissue Temperature Warm Wound Drainage Amount 1 None Wound Dressing Status Open to Air Document 02/01/17 08:00 KMS (Rec: 02/01/17 11:16 KMS [id number]) Wound Assessment Left Ear Wound Type Unknown Etiology Wound Surrounding Tissue Appearance ( Dry Periwound) 1 Intact Surrounding Tissue Temperature Warm Wound Drainage Description Serous Wound Drainage Amount 1 Scant Wound Drainage Odor No Odor Wound Dressing Status Open to Air Left Flank Wound Type Puncture Wound Surrounding Tissue Appearance ( Dry Periwound) 1 Intact Surrounding Tissue Temperature Warm Wound Drainage Amount 1 None Wound Dressing Status Open to Air Document 02/01/17 15:16 KMS (Rec: 02/01/17 15:18 KMS [id number]) Wound Assessment Left Ear Wound Type Unknown Etiology Wound Surrounding Tissue Appearance ( Dry Periwound) 1 Intact Surrounding Tissue Temperature Warm Wound Drainage Amount 1 None Wound Dressing Status Open to Air Left Flank Wound Type Puncture Wound Surrounding Tissue Appearance ( Dry Periwound) 1 Intact Surrounding Tissue Temperature Warm Wound Drainage Amount 1 None Document 02/01/17 20:37 JCL (Rec: 02/01/17 22:07 JCL [id number]) Wound Assessment Left Ear Wound Type Unknown Etiology Wound Surrounding Tissue Appearance ( Dry Periwound) 1 Intact Surrounding Tissue Temperature Warm Wound Drainage Amount 1 None Wound Drainage Odor No Odor Wound Dressing Status Open to Air Left Flank Wound Type Puncture Wound Surrounding Tissue Appearance ( Dry Periwound) 1 Intact Surrounding Tissue Temperature Warm Wound Drainage Amount 1 None Wound Dressing Status Open to Air Coccyx 2 Wound Type Excoriation Wound Surrounding Tissue Appearance ( Intact Periwound) 1 Surrounding Tissue Temperature Warm Wound Drainage Amount 1 None Wound Dressing Status Open to Air Topical Medication Skin barrier cream. Document 02/02/17 09:17 CAM (Rec: 02/02/17 09:19 CAM [id number]) Wound Assessment Left Ear Wound Type Unknown Etiology Wound Surrounding Tissue Appearance ( Dry Periwound) 1 Intact Surrounding Tissue Temperature Warm Wound Drainage Amount 1 None Wound Drainage Odor No Odor Wound Dressing Status Open to Air Left Flank Wound Type Puncture Wound Surrounding Tissue Appearance ( Dry Periwound) 1 Intact Surrounding Tissue Temperature Warm Wound Drainage Amount 1 None Wound Dressing Status Open to Air Coccyx 2 Wound Type Excoriation Wound Surrounding Tissue Appearance ( Intact Periwound) 1 Surrounding Tissue Temperature Warm Wound Drainage Amount 1 None Wound Dressing Status Open to Air Topical Medication barrier cream applied. Document 02/02/17 19:52 JCL (Rec: 02/02/17 21:38 JCL [id number]) Wound Assessment Left Ear Wound Type Unknown Etiology Wound Surrounding Tissue Appearance ( Dry Periwound) 1 Intact Surrounding Tissue Temperature Warm Wound Drainage Amount 1 None Wound Drainage Odor No Odor Wound Dressing Status Open to Air Left Flank Wound Type Puncture Wound Surrounding Tissue Appearance ( Dry Periwound) 1 Intact Surrounding Tissue Temperature Warm Wound Drainage Amount 1 None Wound Dressing Status Open to Air Coccyx 2 Wound Type Excoriation Wound Surrounding Tissue Appearance ( Intact Periwound) 1 Surrounding Tissue Temperature Warm Wound Drainage Amount 1 None Wound Dressing Status Open to Air Topical Medication Barrier cream Document 02/03/17 07:20 CARLIE (Rec: 02/03/17 08:00 CARLIE [id number]) Wound Assessment Left Ear Wound Type Pressure Injury Wound Bed Appearance Other Wound Surrounding Tissue Appearance ( [place] Periwound) 1 Surrounding Tissue Temperature Warm Wound Drainage Amount 1 None Wound Dressing Status Open to Air Left Flank Wound Type Excoriation Wound Bed Appearance Other Wound Surrounding Tissue Appearance ( Dry Periwound) 1 Surrounding Tissue Temperature Warm Wound Drainage Amount 1 None Wound Dressing Status Open to Air Coccyx 2 Wound Type Avulsion Wound Bed Appearance Beefy Red [place] Surrounding Tissue Temperature Warm Wound Drainage Amount 1 None Discharge Information ED Provider: Elvis Bosch Status: Departed Time Seen by Provider: 01/29/17 20:33 Condition: Fair Triaged At: Other ED Providers: Sudeep Caba,Sudeep Jaffe,Brandon Bland,Tae Driver,Anthony Polk,Sendy Torres,Teofilo Bell Emergency Discharge Date/Time: 01/30/17 01:32 Emergency Discharge Disposition: Admitted As Inpatient Clinical Impression Severe sepsis HCAP (healthcare-associated pneumonia) [id number] deficiency Hepatic encephalopathy Emergency Discharge Comment: Admit Intervention Last Done ED Shortness of Breath Assessment 01/29/17 20:34 Query Result Sepsis Infection Criteria Present suspected infection Sepsis SIRS Criteria none Sepsis Screen No Definite Risk Sepsis Action Taken no action required Shortness Of Breath Symptoms/Complaint Shortness of Breath Cough Shortness Of Breath Duration Constant Shortness Of Breath Severity Moderate Shortness Of Breath Context Recent Illness Shortness Of Breath Known History COPD Shortness Of Breath Improves With Oxygen Shortness Of Breath Worsens With Nothing Shortness Of Breath Treatments Prior to Oxygen Arrival Respiratory Depth Normal Respiratory Effort Normal for Patient Non-Labored Respiratory Pattern Regular Cough Description Involuntary Productive Cough Frequency Continuous Level Of Consciousness Drowsy Patient Orientation Person Place Time Patient Behavior Appropriate Cooperative Ability to Follow Directions Excellent Impaired Cognition No Skin Temperature Warm Skin Moisture Dry Skin Turgor Normal ED Discharge Assessment 01/30/17 01:31 Query Result ED Discharge Disposition Admitted ED Condition on Discharge Serious Med Rec/Patient Phamracy completed? No: ED busy ED Admit to 2NE Bed assigned [id number] Transported by plastic technician Transported with monitor oxygen IV Report given to Nurse Care transferred to Lynsey RN Information relayed patient's care treatments medications given condition recent/anticipated change Clinical Documentation Summary Provided Yes Severity scale (1-10) 0 Pain Scale Used Standard (1-10) Blood Pressure 113/79 Heart rate 71 Respiratory Rate 18 Oxygen Delivery Nasal Cannula Pulse Oximetry Reading 96 Critical Care Minutes 0 Inpatient Discharge Date/Time: 02/03/17 13:45 Inpatient Discharge Disposition: Home Health Service Inpatient Discharge Comment: Observation Discharge Date/Time: Observation Discharge Disposition: Observation Discharge Comment: Instructions: Prednisone (By mouth) Levofloxacin (By mouth) Diabetes Mellitus Type 2 in Adults (DC) Meal Planning with Diabetes Exchanges (DC) Pneumonia (DC) Stand-Alone Forms: Prescriptions: Visit Report - Forms: - Referrals: Tiny Santo DO (Primary Care Provider) NO,PCP (Non-Partnered Physician) - Additional text: Please follow-up with your primary care physician within one week after discharge from the hospital. Please take prednisone and Levaquin as prescribed Please continue all your home medications including lactulose as prescribed by your primary care physician. Please continue to follow-up with your outpatient paracentesis appointments as scheduled. Outpatient appointment unable to be made due to residency office not returning calls and email notifications to make appointment, residency clinic will call patient at home to make appointment Radiology Results Chest X-Ray 01/29/17 20:51 IMPRESSION: 1. Re- demonstration of airspace disease within the left lung base. Pneumonia is not excluded. 2. Chronic changes of COPD. D/ / Teofilo Eaton MD / Teofilo Eaton MD Interpreting Provider: Teofilo Eaton MD Chest CTA 01/29/17 22:56 IMPRESSION: 1. No evidence of pulmonary embolism. 2. Patchy airspace opacities at the lung bases, left greater than right, concerning for pneumonia. Appearance is similar to prior exam from 03/28/2016, and superimposed chronic bronchitis and mucus plugging is a possibility. 3. Moderate to severe emphysematous change. 4. Cirrhosis with partially visualized large volume ascites. Mild splenomegaly. 5. Mild mediastinal and bilateral hilar lymphadenopathy, which may be reactive. D/ / 01/30/2017 08:00:08 Raleigh London MD / Machelle Silva Interpreting Provider: Raleigh London MD Head CT 01/30/17 06:07 IMPRESSION: No acute intracranial abnormality. D/ / 01/30/2017 14:18:05 Michael Duvall MD / Machelle Silva Interpreting Provider: Michael Duvall MD Paracentesis Ultrasound 02/01/17 00:00 IMPRESSION: Successful ultrasound guided paracentesis. D/ / Sudeep Thompson MD / Sudeep Thompson MD Interpreting Provider: Sudeep Thompson MD
[2017-01-30] MEDS: Ipratropium/Albuterol Neb 3 ML IH SCH ×4 (05:01→23:36)
[2017-01-30 05:07] LABS: VBG HCO3 24.8 mEq/L (21-27); VBG PH 7.4 pH Units (7.32-7.42)
[2017-01-30 05:17] LABS: Ionized Calcium 1.21 mmol/L (1.15-1.35)
[2017-01-30 05:22] LABS: Hemoglobin A1C 4.7 %; Prothrombin Time 21.6 Seconds (9.4-12.1)
[2017-01-30 05:25] LABS: Activated Partial Thrombo Time 29.9 Seconds (26.0-36.0); Chol/HDL Ratio 8.6 (0-4.9); Magnesium 1.1 mg/dL (1.6-2.6); Phosphorous 3.9 mg/dL (2.3-4.7)
[2017-01-30 05:50] LABS: Thyroid Stimulating Hormone 0.522 mcIU/mL (0.350-4.840)
[2017-01-30] MEDS ORDERED: Naloxone 2 MG in 0.9 % Sodium Chloride 500 ML IVC SCH (05:58)
[2017-01-30] MEDS: 0.9 % Sodium Chloride 1,000 ML IVC SCH ×2 (06:05→22:02)
[2017-01-30] MEDS ORDERED: Magnesium Sulfate 2 GM in D5% in Water 100 ML IVPB ONE ×2 (06:07→10:26)
[2017-01-30] MEDS ORDERED: Lactulose 200 GM, Sodium Chloride IRRigation 700 ML RC SCH (06:15)
[2017-01-30 06:40] LABS: Bilirubin,Urine Negative (Negative); Blood,Urine Negative (Negative); Clarity,Urine Clear (Clear); Color,Urine Yellow (Yellow); Glucose,Urine (UA) Normal (Normal); Ketones,Urine Negative (Negative); Leukocyte Esterase,Urine Negative (Negative); Nitrite,Urine Negative (Negative); Protein,Urine Negative (Neg-Trace); Specific Gravity,Urine 1.027 (1.010-1.025); Urobilinogen,Urine Normal (Normal)
[2017-01-30] MEDS ORDERED: Piperacillin/Tazobactam 3.375 GM in D5% in Water (Mini-Bag+) 100 ML IVPB SCH (08:00)
[2017-01-30] MEDS: *HR* Heparin 5,000 UNIT/ML VIAL SQ SCH ×3 (08:04→22:05)
[2017-01-30] MEDS: methylPREDNISolone 125 MG/2 ML VIAL IVP SCH ×3 (08:04→19:36)
[2017-01-30] MEDS ORDERED: Benzonatate 100 MG CAPSULE PO SCH (09:00)
[2017-01-30] MEDS: Lactulose Oral Soln 20 GM/30 ML UDC PO SCH ×3 (09:34→22:05)
[2017-01-30] MEDS: Sucralfate 1 GM TABLET PO SCH ×4 (09:34→22:06)
[2017-01-30] MEDS: (Rifaximin [Xifaxan] 550 MG) PO SCH ×2 (09:35→21:16)
[2017-01-30] MEDS: Furosemide 40 MG TABLET PO SCH ×2 (09:35→14:03)
[2017-01-30] MEDS: Famotidine 20 MG TABLET PO SCH ×2 (09:35→22:06)
[2017-01-30 11:06] LABS: Prolactin 105.65 ng/mL (3.46-19.40)
[2017-01-30] MEDS: Acetylcysteine 10% 2 ML INHSOL IH SCH ×3 (11:06→23:35)
[2017-01-30] MEDS: Vancomycin 1,750 MG in D5% in Water 500 ML IVPB SCH ×2 (11:09→19:36)
[2017-01-30] MEDS: Levofloxacin 750 MG/150 ML 750 MG/150 ML BAG IVPB SCH (11:09)
[2017-01-30] MEDS: Pantoprazole 40 MG VIAL IVP SCH (11:10)
[2017-01-30] MEDS: Acetaminophen 325 MG TABLET PO PRN ×2 (14:09→19:36)
--- NOTE | 2017-01-30 14:42 | Event Note ---
Date of Encounter: 01/30/17 Time of Encounter: 14:34 56 year old male with alpha 1 antitrypsin deficiency associated with resulting COPD and cirrhosis, well-known to our service, was admitted with altered mental status and dyspnea. He is being treated for hepatic encephalopathy and pneumonia and mild COPD exacerbation. Patient seen and examined. Reports having diarrhea yesterday and refuses today's Lactulose dose. No abdominal pain, vomiting, dyspnea. Awake, alert and oriented to person and place Chest- S1, S2 heard; lungs are clear to auscultation; Abdomen- soft, mildly distended, infraumbilical hernia, reducible; nontender Extremities- full ROM, trace B/L ankle edema Labs reviewed- lactic acidosis, low serum Mg level; CT concerning for B/L infiltrates; HCAP- improving, O2 requirements currently at baseline; continue broad spectrum IV antibiotics and f/up blood cultures; send sputum culture if possible; Hepatic encephalopathy- improving; able to tolerate diet and answer simple questions; continue scheduled Lactulose, which he is currently refusing; explained the need and reinforced compliance; supportive care; Mild acute exacerbation of COPD- improving; will change steroids to PO Prednisone; continue supplemental O2, bronchodilators; Cirrhosis with recurrent ascites- on scheduled paracentesis as out-patient; had the last one on 01/24/17; continue beta-eliana, Xifaxan and diuretics; Patient with poor baseline functional status and poor prognosis;
[2017-01-30] MEDS ORDERED: Dextromethorphan Polistrx(12h) 30 MG/5 ML UDC PO SCH (21:00)
[2017-01-30] MEDS: Piperacillin/Tazobactam 3.375 GM in D5% in Water (Mini-Bag+) 100 ML IVPB SCH (22:06)
[2017-01-31] MEDS: methylPREDNISolone 125 MG/2 ML VIAL IVP SCH ×2 (00:54→06:23)
[2017-01-31] MEDS: Ipratropium/Albuterol Neb 3 ML IH SCH ×4 (04:35→22:49)
[2017-01-31] MEDS: Piperacillin/Tazobactam 3.375 GM in D5% in Water (Mini-Bag+) 100 ML IVPB SCH ×3 (06:23→21:08)
[2017-01-31] MEDS: *HR* Heparin 5,000 UNIT/ML VIAL SQ SCH (06:24)
--- NOTE | 2017-01-31 07:25 | Electrocardiograph Report ---
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
[2017-01-31] MEDS: 0.9 % Sodium Chloride 1,000 ML IVC SCH (07:33)
--- NOTE | 2017-01-31 07:46 | Internal Med Progress Note ---
Date of Encounter: 01/31/17 Time of Encounter: 07:44 - Assessment and plan (1) Acute exacerbation of chronic obstructive pulmonary disease Current Visit: Yes Status: Acute Assessment and plan: Improving. Taper down IV steroids with plan to switch to PO Prednisone tomorrow. Continue bronchodilators and supplemental O2; patient is on home O2; IV antibiotics. (2) Acute on chronic respiratory failure with hypoxia Current Visit: Yes Status: Acute Assessment and plan: due to underlying Pneumonia and COPD; O2 requirements currently at baseline; (3) HCAP (healthcare-associated pneumonia) Current Visit: Yes Status: Acute Assessment and plan: Improving. Continue broad spectrum IV antibiotics and de-escalate antibiotics after following blood cultures. Supportive care; (4) Hepatic encephalopathy Current Visit: Yes Status: Acute Assessment and plan: improving; continue scheduled Lactulose and monitor closely; Fall precautions; patient was discharged on HHS during previous admissions but claims he never received, will d/w ; (5) Lactic acidosis Current Visit: Yes Status: Acute Assessment and plan: likely related to liver disease, less likely septic shock; monitor vitals closely; (6) CAD (coronary artery disease) Current Visit: Yes Status: Chronic Qualifiers: Coronary Disease-Associated Artery/Lesion type: [place] artery [place] vs. transplanted heart: [place] heart Associated angina: without angina Qualified Code(s): I25.10 - Atherosclerotic heart disease of [place] coronary artery without angina pectoris (7) Chronic anemia Current Visit: Yes Status: Chronic Assessment and plan: monitor Hb closely; due to chronic medical conditions including liver disease, malnutrition; (8) Chronic hepatitis B virus infection Current Visit: Yes Status: Chronic Assessment and plan: supposed to be on Tenofovir as outpatient per previous notes; patient does not remember; outpatient GI f/up; (9) Diabetes mellitus Current Visit: Yes Status: Chronic Assessment and plan: Accucheck blood glucose monitoring with sliding scale insulin; diabetic diet; Qualifiers: Diabetes mellitus type: type 2 Diabetes mellitus complication status: with unspecified complications Diabetes mellitus long-term insulin use: without long-term use Qualified Code(s): E11.8 - Type 2 diabetes mellitus with unspecified complications (10) Diastolic heart failure Current Visit: Yes Status: Chronic Qualifiers: Heart failure chronicity: chronic Qualified Code(s): I50.32 - Chronic diastolic (congestive) heart failure (11) Dyslipidemia Current Visit: Yes Status: Chronic (12) Protein calorie malnutrition Current Visit: Yes Status: Chronic (13) Cirrhosis of liver with ascites Current Visit: Yes Status: Chronic Assessment and plan: 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, with recurrent ascites, on scheduled outpatient paracentesis; last tap on 01/24; continue to monitor, no indication for paracentesis today; patient also has coagulopathy due to liver disease; Qualifiers: Hepatic cirrhosis type: unspecified hepatic cirrhosis Qualified Code(s): K74.60 - Unspecified cirrhosis of liver (14) Hypertension Current Visit: Yes Status: Chronic Qualifiers: Hypertension type: essential hypertension Qualified Code(s): I10 - Essential (primary) hypertension - Subjective Interval history: Feels better; reports pain in both shoulders and upper back from lying in bed. Occasional dry cough. No dyspnea, chest pain, abdominal pain. - Constitutional Vitals: Temp Pulse Resp BP Pulse Ox 97.5 F L 77 16 98/65 97 01/31/17 07:00 01/31/17 07:00 01/31/17 07:00 01/31/17 07:00 01/31/17 07:00 General appearance: Present: A&O X 2, answers questions appropriately - Respiratory Respiratory exam: Present: CTAB. Absent: accessory muscle use, rales, rhonchi, wheezes - Cardiovascular Cardiovascular exam: Present: RRR, +S1, +S2. Absent: diastolic murmur, gallop, rubs, systolic murmur - GI/Abdominal GI/Abdominal exam: Present: distended (moderate ascites, nontender), normal bowel sounds, soft, no peritoneal signs. Absent: tenderness - Extremities Exam Extremities exam: Present: pedal edema (trace pedal edema B/L), warm, radial pulses palpable and symetrical. Absent: calf tenderness, cyanotic - Neurological Exam Neurological exam: Present: CN II-XII intact, oriented X3, no focal deficits. Absent: pronater drift, facial droop, speech deficit - Skin Skin exam: Present: dry, intact Internal Medicine: Result - Labs CBC & Chem 7: 01/29/17 21:41 01/29/17 21:41 Labs: Cardiac Enzymes 01/30/17 Range/Units 16:49 Troponin I 0.00 (0-0.03) ng/mL - ABG Interpretation ABG results: PT/INR, D-dimer PT 21.6 Seconds (9.4-12.1) H 01/30/17 04:45 Consult Discharge Plan - Plan Referrals: NO,PCP [Primary Care Provider] -
[2017-01-31] MEDS: MethylPREDNISolone 40 MG/ML VIAL IVP SCH ×2 (07:59→21:02)
[2017-01-31] MEDS: Vancomycin 1,750 MG in D5% in Water 500 ML IVPB SCH (08:23)
[2017-01-31] MEDS: Sucralfate 1 GM TABLET PO SCH ×4 (08:24→21:00)
[2017-01-31] MEDS: Lactulose Oral Soln 20 GM/30 ML UDC PO SCH ×3 (08:24→21:01)
[2017-01-31] MEDS: Furosemide 40 MG TABLET PO SCH (08:25)
[2017-01-31] MEDS: Pantoprazole 40 MG VIAL IVP SCH (08:26)
[2017-01-31] MEDS: (Rifaximin [Xifaxan] 550 MG) PO SCH ×2 (08:26→21:10)
[2017-01-31] MEDS: Famotidine 20 MG TABLET PO SCH ×2 (08:26→21:01)
[2017-01-31] MEDS: Levofloxacin 750 MG/150 ML 750 MG/150 ML BAG IVPB SCH (08:45)
[2017-01-31 08:51] LABS: Basophils % 0.1 %; Eosinophils % 0.1 %; Hematocrit 22.4 % (37.5-50.1); Immature Granulocytes % 0.6 % (0-4); Lymphocytes # 0.6 K/mcL (0.6-4.6); Lymphocytes % 4.9 %; Mean Corpuscular HGB Conc 33.5 g/dL (31.6-35.5); Mean Corpuscular Hemoglobin 31.1 pg (28.0-33.3); Mean Corpuscular Volume 92.9 fL (83.0-100.0); Mean Platelet Volume 10.6 fL (9.4-12.4); Monocytes # 0.4 K/mcL (0.0-1.3); Monocytes % 3.1 %; Neutrophils # 11.5 K/mcL (1.6-8.9); Platelet Count 114 K/mcL (140-400); Red Blood Count 2.41 M/mcL (4.19-5.50); Red Cell Distribution Width 16.4 % (11.5-14.5); Segmented Neutrophils % 91.2 %
[2017-01-31 09:35] LABS: BUN/Creatinine Ratio 29 (6-26); Blood Urea Nitrogen 30 mg/dL (8-26); Calcium 7.9 mg/dL (8.6-10.8); Carbon Dioxide 22 mEq/L (19-29); Chloride 106 mEq/L (98-109); Glucose 135 mg/dL (70-99); Osmolality,Calculated 286 (280-300); Potassium 4.1 mEq/L (3.5-4.5); Sodium 134 mEq/L (136-145); eGFR For African Americans > 60 (> 60); eGFR For Non-African Americans > 60 (> 60)
[2017-01-31 09:55] LABS: Hemoglobin 7.5 g/dL (12.9-16.9)
[2017-01-31] MEDS: Pregabalin 75 MG CAPSULE PO SCH ×2 (10:10→21:01)
[2017-01-31] MEDS: *HR* OxyCODONE Immed Rel 15 MG TABLET PO PRN ×3 (10:34→20:59)
[2017-01-31] MEDS: Acetylcysteine 10% 2 ML INHSOL IH SCH ×3 (10:36→22:49)
[2017-01-31] MEDS ORDERED: Dextrose Gel 15 GM PO PRN ×2 (12:25)
[2017-01-31] MEDS ORDERED: D5% in Water 1,000 ML IV PRN (12:25)
[2017-01-31] MEDS ORDERED: *HR* Dextrose 50 % in Water (Syg) 50 ML SYRINGE IVP PRN (12:25)
[2017-01-31] MEDS: Insulin LISPRO 300 UNITS/3 ML VIAL SQ SCH (16:55)
[2017-01-31] MEDS: ALPRAZolam 1 MG TABLET PO PRN (21:01)
[2017-02-01] MEDS: Insulin LISPRO 300 UNITS/3 ML VIAL SQ SCH ×6 (00:09→20:51)
[2017-02-01 04:32] LABS: Eosinophils % 0.1 %; Hematocrit 20.9 % (37.5-50.1); Lymphocytes % 5.8 %; Mean Corpuscular HGB Conc 33.5 g/dL (31.6-35.5)
[2017-02-01 04:34] LABS: Immature Granulocytes % 0.7 % (0-4); Immature Platelets 2.4 % (1.1-6.1); Lymphocytes # 0.5 K/mcL (0.6-4.6); Mean Corpuscular Hemoglobin 30.8 pg (28.0-33.3); Mean Corpuscular Volume 92.1 fL (83.0-100.0); Mean Platelet Volume 10.3 fL (9.4-12.4); Monocytes # 0.7 K/mcL (0.0-1.3); Monocytes % 8.1 %; Neutrophils # 7.4 K/mcL (1.6-8.9); Platelet Count 100 K/mcL (140-400); Red Blood Count 2.27 M/mcL (4.19-5.50); Red Cell Distribution Width 16.7 % (11.5-14.5); Segmented Neutrophils % 85.3 %
[2017-02-01 04:49] LABS: BUN/Creatinine Ratio 28 (6-26); Blood Urea Nitrogen 28 mg/dL (8-26); Calcium 7.8 mg/dL (8.6-10.8); Carbon Dioxide 23 mEq/L (19-29); Chloride 106 mEq/L (98-109); Glucose 134 mg/dL (70-99); Magnesium 1.5 mg/dL (1.6-2.6); Osmolality,Calculated 283 (280-300); Sodium 133 mEq/L (136-145); eGFR For African Americans > 60 (> 60); eGFR For Non-African Americans > 60 (> 60)
[2017-02-01] MEDS: Ipratropium/Albuterol Neb 3 ML IH SCH ×5 (05:03→23:52)
[2017-02-01] MEDS: Piperacillin/Tazobactam 3.375 GM in D5% in Water (Mini-Bag+) 100 ML IVPB SCH ×3 (05:41→18:07)
[2017-02-01] MEDS: Sucralfate 1 GM TABLET PO SCH ×4 (08:22→20:49)
[2017-02-01] MEDS: Furosemide 40 MG TABLET PO SCH (08:22)
[2017-02-01] MEDS: Pregabalin 75 MG CAPSULE PO SCH ×2 (08:22→20:49)
[2017-02-01] MEDS: Famotidine 20 MG TABLET PO SCH ×2 (08:22→20:49)
[2017-02-01] MEDS: Lactulose Oral Soln 20 GM/30 ML UDC PO SCH ×3 (08:23→20:50)
[2017-02-01] MEDS: Levofloxacin 750 MG/150 ML 750 MG/150 ML BAG IVPB SCH (08:23)
[2017-02-01] MEDS: *HR* OxyCODONE Immed Rel 15 MG TABLET PO PRN ×4 (08:23→20:49)
[2017-02-01] MEDS: MethylPREDNISolone 40 MG/ML VIAL IVP SCH ×2 (08:23→20:49)
[2017-02-01] MEDS: Pantoprazole 40 MG VIAL IVP SCH (08:23)
[2017-02-01] MEDS: (Rifaximin [Xifaxan] 550 MG) PO SCH ×2 (08:24→21:09)
--- NOTE | 2017-02-01 09:46 | Internal Med Progress Note ---
Date of Encounter: 02/01/17 Time of Encounter: 08:50 - Assessment and plan (1) Acute exacerbation of chronic obstructive pulmonary disease Current Visit: Yes Status: Acute Assessment and plan: Improving. Taper down IV steroids with plan to switch to PO Prednisone tomorrow(02/02/17). Continue bronchodilators and supplemental O2 patient is on home O2 Monitor O2 sat, with goal O2 sat: 89-92% Continue IV antibiotics. (2) Acute on chronic respiratory failure with hypoxia Current Visit: Yes Status: Acute Assessment and plan: due to underlying Pneumonia and COPD O2 requirements currently at baseline (3) HCAP (healthcare-associated pneumonia) Current Visit: Yes Status: Acute Assessment and plan: Improving. Continue broad spectrum IV antibiotics and de-escalate antibiotics after following blood cultures. 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 transplanted heart: [place] heart Associated angina: without angina Qualified Code(s): I25.10 - Atherosclerotic heart disease of [place] coronary artery without angina pectoris (8) Chronic anemia Current Visit: Yes Status: Chronic Assessment and plan: Secondary to chronic medical conditions including liver disease, malnutrition Drop in H&H noted, Will transfuse 2units PRBC today continue to monitor H&H (9) Chronic hepatitis B virus infection Current Visit: Yes Status: Chronic Assessment and plan: supposed to be on Tenofovir as outpatient per previous notes; patient does not remember; outpatient GI f/up (10) Cirrhosis of liver with ascites Current Visit: Yes Status: Chronic Assessment and plan: 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, with recurrent ascites, on scheduled outpatient paracentesis last tap on 01/24 continue to monitor As per outpatient schedule, patient scheduled for Paracentesis today (02/01/17) patient also has coagulopathy due to liver disease Qualifiers: Hepatic cirrhosis type: unspecified hepatic cirrhosis Qualified Code(s): K74.60 - Unspecified cirrhosis of liver (11) Diabetes mellitus Current Visit: Yes Status: Chronic Assessment and plan: Accucheck blood glucose monitoring with sliding scale insulin diabetic diet Qualifiers: Diabetes mellitus type: type 2 Diabetes mellitus complication status: with unspecified complications Diabetes mellitus halfway insulin use: without terminal make up operator use Qualified Code(s): E11.8 - Type 2 diabetes mellitus with unspecified complications (12) Diastolic heart failure Current Visit: Yes Status: Chronic Qualifiers: Heart failure chronicity: chronic Qualified Code(s): I50.32 - Chronic diastolic (congestive) heart failure (13) DVT prophylaxis Current Visit: Yes Status: Acute Assessment and plan: IPCD (14) Hypertension Current Visit: Yes Status: Chronic Assessment and plan: Noted to be hypotensive today Will hold Lasix dose Qualifiers: Hypertension type: essential hypertension Qualified Code(s): I10 - Essential (primary) hypertension (15) Hypomagnesemia Current Visit: Yes Status: Acute Assessment and plan: Mg supplemented continue to monitor electrolytes and replace as needed - Subjective Interval history: Pt seen and examined at bedside. Resting in bed. Reports of cough improving from previous day. Noted to have drop in H&H, history of anemia requiring multiple transfusions. Will transfuse 2unit PRBC today. Scheduled for Paracentesis today as per his outpatient paracentesis schedule. - Constitutional Vitals: Temp Pulse Resp BP Pulse Ox 98.2 F 61 16 94/52 95 02/01/17 07:26 02/01/17 07:57 02/01/17 07:26 02/01/17 07:26 02/01/17 07:57 General appearance: Present: A&O X 2, no acute distress, answers questions appropriately - Head Head exam: Present: atraumatic, normocephalic - Eye Eye exam: Present: PERRL, conjuntiva pink, sclera anicteric - Respiratory Respiratory exam: Absent: respiratory distress, wheezes (coarse breath sounds bilaterally) - Cardiovascular Cardiovascular exam: Present: RRR, +S1, +S2 - GI/Abdominal GI/Abdominal exam: Present: normal bowel sounds (ascites, distended, infraumbilical hernia, reducible ), soft. Absent: tenderness - Extremities Exam Extremities exam: Present: warm, radial pulses palpable and symetrical. Absent : pedal edema - Neurological Exam Neurological exam: Present: alert Internal Medicine: Result - Labs CBC & Chem 7: 02/01/17 04:13 02/01/17 04:13 Labs: Short CBC 01/31/17 02/01/17 Range/Units 08:13 04:13 WBC 12.6 H 8.7 (4.3-11.1) K/mcL Hgb 7.5 L D 7.0 L (12.9-16.9) g/dL Hct 22.4 L 20.9 L (37.5-50.1) % Plt Count 114 L 100 L (140-400) K/mcL Neutrophils # 11.5 H 7.4 (1.6-8.9) K/mcL BMP 02/01/17 04:13 Sodium 133 L Potassium 4.0 Chloride 106 Carbon Dioxide 23 BUN 28 H Creatinine 1.01 Glucose 134 H Calcium 7.8 L - ABG Interpretation ABG results: PT/INR, D-dimer PT 21.6 Seconds (9.4-12.1) H 01/30/17 04:45 - VTE Documentation of Mechanical Device: Graduated compression elastic hosiery Consult Discharge Plan - Plan Referrals: NO,PCP [Primary Care Provider] -
[2017-02-01] MEDS: Acetylcysteine 10% 2 ML INHSOL IH SCH ×3 (10:51→23:52)
--- NOTE | 2017-02-01 11:24 | IR Procedure Note ---
Date of procedure: 02/01/17 Consent Obtained: Written consent Timeout: Correct patient and procedure verified, Correct site verified, Time out performed, Skin prep completed Local anesthetic: Lidocaine 1% Indications: Ascites Procedure Performed: Paracentesis Site/Technique: LLQ Results/Findings: Total volume of 3.5L out, re-checked after intial assessed. Tolerated well. Estimated blood loss (cc): 1 Complications: None; Tolerated procedure well Post Procedure Treatment Plan: Monitoring in pts room
[2017-02-01] MEDS ORDERED: 0.9 % Sodium Chloride 500 ML ONE (11:48)
[2017-02-01] MEDS: ALPRAZolam 1 MG TABLET PO PRN ×2 (12:38→20:47)
[2017-02-01] MEDS ORDERED: Vancomycin 1,500 MG in D5% in Water 250 ML IVPB SCH (14:00)
[2017-02-02] MEDS: Piperacillin/Tazobactam 3.375 GM in D5% in Water (Mini-Bag+) 100 ML IVPB SCH (02:39)
[2017-02-02] MEDS: Ipratropium/Albuterol Neb 3 ML IH SCH ×4 (03:30→22:35)
[2017-02-02 05:01] LABS: Basophils % 0.1 %; Immature Granulocytes % 0.8 % (0-4)
[2017-02-02 05:02] LABS: Hematocrit 27.5 % (37.5-50.1); Hemoglobin 9.3 g/dL (12.9-16.9); Immature Platelets 2.5 % (1.1-6.1); Lymphocytes # 0.5 K/mcL (0.6-4.6); Lymphocytes % 5.5 %; Mean Corpuscular HGB Conc 33.8 g/dL (31.6-35.5); Mean Corpuscular Hemoglobin 30.3 pg (28.0-33.3); Mean Corpuscular Volume 89.6 fL (83.0-100.0); Mean Platelet Volume 10.2 fL (9.4-12.4); Monocytes # 0.6 K/mcL (0.0-1.3); Neutrophils # 7.6 K/mcL (1.6-8.9); Red Blood Count 3.07 M/mcL (4.19-5.50); Red Cell Distribution Width 17.2 % (11.5-14.5); Segmented Neutrophils % 86.6 %
[2017-02-02 05:03] LABS: Platelet Count 98 K/mcL (140-400)
[2017-02-02 05:12] LABS: BUN/Creatinine Ratio 28 (6-26); Blood Urea Nitrogen 27 mg/dL (8-26); Calcium 7.8 mg/dL (8.6-10.8); Carbon Dioxide 23 mEq/L (19-29); Chloride 104 mEq/L (98-109); Glucose 255 mg/dL (70-99); Magnesium 1.8 mg/dL (1.6-2.6); Osmolality,Calculated 286 (280-300); Phosphorous 2.2 mg/dL (2.3-4.7); Potassium 4.3 mEq/L (3.5-4.5); Sodium 131 mEq/L (136-145); eGFR For African Americans > 60 (> 60); eGFR For Non-African Americans > 60 (> 60)
[2017-02-02] MEDS ORDERED: Sodium Phosphate 30 MMOL in D5% in Water 100 ML IVPB ONE (07:44)
[2017-02-02] MEDS ORDERED: Aminoglycoside Consult 1 EACH MC ONE (08:01)
[2017-02-02] MEDS: Levofloxacin 750 MG/150 ML 750 MG/150 ML BAG IVPB SCH (08:08)
[2017-02-02] MEDS: predniSONE 20 MG TABLET PO SCH ×2 (08:10→08:12)
[2017-02-02] MEDS: *HR* OxyCODONE Immed Rel 15 MG TABLET PO PRN ×3 (08:10→16:53)
[2017-02-02] MEDS: Lactulose Oral Soln 20 GM/30 ML UDC PO SCH ×3 (08:10→20:40)
[2017-02-02] MEDS: Famotidine 20 MG TABLET PO SCH ×2 (08:10→20:42)
[2017-02-02] MEDS: ALPRAZolam 1 MG TABLET PO PRN ×2 (08:11→20:41)
[2017-02-02] MEDS: Sucralfate 1 GM TABLET PO SCH ×4 (08:11→20:41)
[2017-02-02] MEDS: Pregabalin 75 MG CAPSULE PO SCH ×2 (08:11→20:41)
[2017-02-02] MEDS: (Rifaximin [Xifaxan] 550 MG) PO SCH ×2 (08:13→20:42)
[2017-02-02] MEDS: Insulin LISPRO 300 UNITS/3 ML VIAL SQ SCH ×4 (08:24→20:46)
--- NOTE | 2017-02-02 10:28 | Internal Med Progress Note ---
Date of Encounter: 02/02/17 Time of Encounter: 10:26 - Assessment and plan (1) Acute exacerbation of chronic obstructive pulmonary disease Current Visit: Yes Status: Acute Assessment and plan: Improving. Started [id number] PO qd. Continue bronchodilators and supplemental O2 patient is on home O2 Monitor O2 sat, with goal O2 sat: 89-92% Continue IV antibiotics. Follow-up physical therapy evaluation and initiate discharge planning. (2) Acute on chronic respiratory failure with hypoxia Current Visit: Yes Status: Acute Assessment and plan: due to underlying Pneumonia and COPD O2 requirements currently at baseline (3) HCAP (healthcare-associated pneumonia) Current Visit: Yes Status: Acute Assessment and plan: Improving. Continue broad spectrum IV antibiotics and de-escalate antibiotics after following blood cultures. Supportive care; (4) Hepatic encephalopathy Current Visit: Yes Status: Acute Assessment and plan: improving continue scheduled Lactulose and monitor closely Fall precautions (5) Lactic acidosis Current Visit: Yes Status: Acute Assessment and plan: likely related to liver disease, less likely septic shock; monitor vitals closely will follow up repeat Lactate level (6) Idfgv-9-aacyytlfodc deficiency Current Visit: Yes Status: Chronic (7) CAD (coronary artery disease) Current Visit: Yes Status: Chronic Assessment and plan: No signs of angina present at this time continue home medications Qualifiers: Coronary Disease-Associated Artery/Lesion type: [place] artery [place] vs. transplanted heart: [place] heart Associated angina: without angina Qualified Code(s): I25.10 - Atherosclerotic heart disease of [place] coronary artery without angina pectoris (8) Chronic anemia Current Visit: Yes Status: Chronic Assessment and plan: Secondary to chronic medical conditions including liver disease, malnutrition s/p 2units PRBC transfusion Repeat H&H within acceptable limits continue to monitor H&H (9) Chronic hepatitis B virus infection Current Visit: Yes Status: Chronic Assessment and plan: supposed to be on Tenofovir as outpatient per previous notes; patient does not remember; outpatient GI f/up (10) Cirrhosis of liver with ascites Current Visit: Yes Status: Chronic Assessment and plan: 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, with recurrent ascites, on scheduled outpatient paracentesis last tap on 01/24 continue to monitor s/p Paracentesis (02/01/17) patient also has coagulopathy due to liver disease Qualifiers: Hepatic cirrhosis type: unspecified hepatic cirrhosis Qualified Code(s): K74.60 - Unspecified cirrhosis of liver (11) Diabetes mellitus Current Visit: Yes Status: Chronic Assessment and plan: Noted to require 40 units of insulin coverage in the last 24 hours We will start Levemir 10 units subcutaneous twice a day Continue to monitor fingerstick and blood glucose Continue sliding scale insulin algorithm as needed Qualifiers: Diabetes mellitus type: type 2 Diabetes mellitus complication status: with unspecified complications Diabetes mellitus intermediate school teacher insulin use: without intermediate school teacher use Qualified Code(s): E11.8 - Type 2 diabetes mellitus with unspecified complications (12) Diastolic heart failure Current Visit: Yes Status: Chronic Qualifiers: Heart failure chronicity: chronic Qualified Code(s): I50.32 - Chronic diastolic (congestive) heart failure (13) DVT prophylaxis Current Visit: Yes Status: Acute Assessment and plan: IPCD (14) Hypertension Current Visit: Yes Status: Chronic Assessment and plan: Noted to be hypotensive today Will hold Lasix dose Qualifiers: Hypertension type: essential hypertension Qualified Code(s): I10 - Essential (primary) hypertension (15) Hypomagnesemia Current Visit: Yes Status: Resolved Assessment and plan: continue to monitor electrolytes and replace as needed - Subjective Interval history: Pt seen and examined at bedside. Resting in bed. Reports of cough improving from previous day. s/p 2unit PRBC transfusion and paracentesis. Repeat H&H stable. As per patient's , patient ambulates with a walker at home however have not been able to do so since hospitalization. We will obtain physical therapy eval and initiate discharge planning. - Constitutional Vitals: Temp Pulse Resp BP Pulse Ox 97.6 F 63 14 102/52 95 02/02/17 07:25 02/02/17 09:04 02/02/17 07:25 02/02/17 07:25 02/02/17 07:25 General appearance: Present: A&O X 2, no acute distress, answers questions appropriately - Head Head exam: Present: atraumatic, normocephalic - Eye Eye exam: Present: normal appearance, conjuntiva pink, sclera anicteric - Respiratory Respiratory exam: Absent: respiratory distress, wheezes - Cardiovascular Cardiovascular exam: Present: RRR, +S1, +S2 - GI/Abdominal GI/Abdominal exam: Present: normal bowel sounds, soft, tenderness ( infraumbilical hernia ) - Extremities Exam Extremities exam: Present: warm, radial pulses palpable and symetrical. Absent : calf tenderness, pedal edema - Neurological Exam Neurological exam: Present: alert Internal Medicine: Result - Labs CBC & Chem 7: 02/02/17 04:45 02/02/17 04:45 Labs: Short CBC 02/02/17 Range/Units 04:45 WBC 8.8 (4.3-11.1) K/mcL Hgb 9.3 L D (12.9-16.9) g/dL Hct 27.5 L (37.5-50.1) % Plt Count 98 L (140-400) K/mcL Neutrophils # 7.6 (1.6-8.9) K/mcL BMP 02/02/17 04:45 Sodium 131 L Potassium 4.3 Chloride 104 Carbon Dioxide 23 BUN 27 H Creatinine 0.95 Glucose 255 H Calcium 7.8 L - ABG Interpretation ABG results: PT/INR, D-dimer PT 21.6 Seconds (9.4-12.1) H 01/30/17 04:45 - Impressions Impressions Paracentesis Ultrasound 02/01/17 00:00 IMPRESSION: Successful ultrasound guided paracentesis. D/ / Sudeep Thompson MD / Sudeep Thompson MD Interpreting Provider: Sudeep Thompson MD - VTE Documentation of Mechanical Device: Graduated compression elastic hosiery Consult Discharge Plan - Plan Referrals: NO,PCP [Non-Partnered Physician] -
[2017-02-02] MEDS: Acetylcysteine 10% 2 ML INHSOL IH SCH ×3 (11:11→22:35)
[2017-02-02] MEDS: Insulin DETEMIR 100 UNIT/ML X5UNITS SQ SCH ×2 (12:14→21:14)
[2017-02-02] MEDS ORDERED: Vancomycin 1,500 MG in D5% in Water 250 ML IVPB SCH (18:00)
[2017-02-02] MEDS: Budesonide/Formoterol 160/4.5 MDI IH SCH (22:35)
[2017-02-03] MEDS: Ipratropium/Albuterol Neb 3 ML IH SCH ×2 (03:59→11:07)
[2017-02-03] MEDS: ALPRAZolam 1 MG TABLET PO PRN ×2 (04:29→08:13)
[2017-02-03 04:49] LABS: Basophils % 0.1 %; Eosinophils % 0.2 %; Hematocrit 27.1 % (37.5-50.1); Hemoglobin 9.2 g/dL (12.9-16.9); Immature Granulocytes % 1.1 % (0-4); Lymphocytes # 0.8 K/mcL (0.6-4.6); Lymphocytes % 8.3 %; Mean Corpuscular HGB Conc 33.9 g/dL (31.6-35.5); Mean Corpuscular Hemoglobin 30.9 pg (28.0-33.3); Mean Corpuscular Volume 90.9 fL (83.0-100.0); Mean Platelet Volume 10.6 fL (9.4-12.4); Monocytes % 10.9 %; Neutrophils # 7.4 K/mcL (1.6-8.9); Platelet Count 103 K/mcL (140-400); Red Blood Count 2.98 M/mcL (4.19-5.50); Red Cell Distribution Width 17.2 % (11.5-14.5); Segmented Neutrophils % 79.4 %
[2017-02-03 05:00] LABS: BUN/Creatinine Ratio 27 (6-26); Blood Urea Nitrogen 24 mg/dL (8-26); Calcium 7.9 mg/dL (8.6-10.8); Carbon Dioxide 24 mEq/L (19-29); Chloride 105 mEq/L (98-109); Glucose 195 mg/dL (70-99); Magnesium 1.9 mg/dL (1.6-2.6); Osmolality,Calculated 283 (280-300); Phosphorous 1.7 mg/dL (2.3-4.7); Potassium 4.3 mEq/L (3.5-4.5); Sodium 132 mEq/L (136-145); eGFR For African Americans > 60 (> 60); eGFR For Non-African Americans > 60 (> 60)
[2017-02-03] MEDS ORDERED: Sodium Phosphate 30 MMOL in D5% in Water 100 ML IVPB ONE (07:35)
[2017-02-03] MEDS: Pregabalin 75 MG CAPSULE PO SCH (08:11)
[2017-02-03] MEDS: Famotidine 20 MG TABLET PO SCH (08:12)
[2017-02-03] MEDS: predniSONE 20 MG TABLET PO SCH (08:13)
[2017-02-03] MEDS: *HR* OxyCODONE Immed Rel 15 MG TABLET PO PRN ×2 (08:14→12:04)
[2017-02-03] MEDS: Sucralfate 1 GM TABLET PO SCH (08:15)
[2017-02-03] MEDS: Levofloxacin 750 MG/150 ML 750 MG/150 ML BAG IVPB SCH (08:27)
[2017-02-03] MEDS: Insulin LISPRO 300 UNITS/3 ML VIAL SQ SCH ×2 (08:47→12:01)
[2017-02-03] MEDS: Lactulose Oral Soln 20 GM/30 ML UDC PO SCH (08:48)
--- NOTE | 2017-02-03 10:13 | Discharge Summary ---
Date of Encounter: 02/03/17 Time of Encounter: 10:05 - Discharge Diagnosis (1) Acute exacerbation of chronic obstructive pulmonary disease Priority: Primary Status: Acute (2) Acute on chronic respiratory failure with hypoxia Priority: Primary Status: Acute (3) HCAP (healthcare-associated pneumonia) Priority: Secondary Status: Acute (4) Hepatic encephalopathy Priority: Secondary Status: Acute (5) Lactic acidosis Priority: Secondary Status: Acute (6) Phgfv-7-oaauryxfiot deficiency Priority: Secondary Status: Chronic (7) CAD (coronary artery disease) Priority: Secondary Status: Chronic Qualifiers: Coronary Disease-Associated Artery/Lesion type: [place] artery [place] vs. transplanted heart: [place] heart Associated angina: without angina Qualified Code(s): I25.10 - Atherosclerotic heart disease of [place] coronary artery without angina pectoris (8) Chronic anemia Priority: Secondary Status: Chronic (9) Chronic hepatitis B virus infection Priority: Secondary Status: Chronic (10) Cirrhosis of liver with ascites Priority: Secondary Status: Chronic Qualifiers: Hepatic cirrhosis type: unspecified hepatic cirrhosis Qualified Code(s): K74.60 - Unspecified cirrhosis of liver (11) Diabetes mellitus Priority: Secondary Status: Chronic Qualifiers: Diabetes mellitus type: type 2 Diabetes mellitus complication status: with unspecified complications Diabetes mellitus extermination inspector insulin use: without retirement use Qualified Code(s): E11.8 - Type 2 diabetes mellitus with unspecified complications (12) Diastolic heart failure Priority: Secondary Status: Chronic Qualifiers: Heart failure chronicity: chronic Qualified Code(s): I50.32 - Chronic diastolic (congestive) heart failure (13) DVT prophylaxis Priority: Secondary Status: Acute (14) Hypertension Priority: Secondary Status: Chronic Qualifiers: Hypertension type: essential hypertension Qualified Code(s): I10 - Essential (primary) hypertension (15) Hypomagnesemia Priority: Secondary Status: Resolved - Discharge Medications Prescriptions: Levofloxacin [Levaquin] 750 mg PO DAILY #2 tablet PredniSONE 40 mg PO DAILY #7 tablet Home Medications: Amitriptyline [Elavil] 50 mg PO HS 10/06/15 [History] Oxygen 2 - 4 l NS CONT 08/18/16 [History] Ocvag-3-Hhbxitewrk Inhibitor [Glassia] 10 mg IV QWEEK 09/18/16 [History] Albuterol Sulfate [Proair Respiclick] 2 puff IH Q4H PRN #1 aer.pow.ba 10/11/16 [ Rx] Alprazolam [Xanax 1 MG Tablet] 0.5 mg PO BID PRN #20 10/11/16 [Rx] Budesonide/Formoterol 160/4.5 [Symbicort 160/4.5] 2 puff IH BID #1 10/11/16 [Rx ] Ipratropium/Albuterol Neb [Duoneb] 3 ml IH Q4HR PRN 30 Days 10/11/16 [Rx] Oxycodone HCl 15 mg PO Q4H PRN #15 tablet 10/11/16 [Rx] Pregabalin [Lyrica] 75 mg PO BID #30 capsule 10/11/16 [Rx] Prochlorperazine Maleate [Compazine] 10 mg PO Q6HR PRN #20 10/11/16 [Rx] Rifaximin [Xifaxan] 550 mg PO BID #60 tablet 10/11/16 [Rx] Sucralfate [Carafate] 1 gm PO QID 30 Days 10/11/16 [Rx] Ranitidine HCl [Acid Core Manager] 150 mg PO BID 10/17/16 [History] Pantoprazole Sodium [Protonix] 40 mg PO DAILY 11/01/16 [History] Ondansetron HCl [Zofran] 4 mg PO AD PRN 12/28/16 [History] Furosemide [Lasix] 80 mg PO BID 01/30/17 [History] Lactulose 30 ml PO QID 01/30/17 [History] Magnesium Oxide [Mag-Ox] 400 mg PO BID 01/30/17 [History] Metformin HCl [Metformin HCl ER] 1,000 mg PO BID 01/30/17 [History] Nadolol 20 mg PO DAILY 01/30/17 [History] Potassium Chloride [Klor-Con 10] 10 meq PO BID 01/30/17 [History] Spironolactone [Aldactone] 100 mg PO DAILY 01/30/17 [History] Levofloxacin [Levaquin] 750 mg PO DAILY #2 tablet 02/03/17 [Rx] PredniSONE 40 mg PO DAILY #7 tablet 02/03/17 [Rx] Allergies/Adverse Reactions: Allergies No Known Allergies Allergy (Verified 12/16/16 22:42) Procedures/tests Complete & Pending: Procedures Performed prior 72 hours Category Date Time Status IR paracentesis ultrasound [IR] Routine IR 02/01/17 Completed Date of admission: 01/30/17 15:28 Primary care physician: Tiny Santo DO Consults: 02/01/17 07:58 Consult to Interventional Radiology [CONS] Routine Consulting Provider: Radiology Interventional Cols Reason for Consult: paracentesis Call Completed: Yes 02/02/17 10:23 Consult to Physical Therapy [CONS] Stat Comment: Evaluate, develop and implement POC Discharging clinician: Susanne Sidhu Anticipated date of discharge: 02/03/17 - Patient Status Disposition: Home Health Service Condition: Fair Functional capacity at discharge: uses cane/walker Overall status at discharge: patient is back to baseline - Discharge Instructions Follow Up With: NO,PCP [Non-Partnered Physician] - Additional Instructions: Please follow-up with your primary care physician within one week after discharge from the hospital. Please take prednisone and Levaquin as prescribed Please continue all your home medications including lactulose as prescribed by your primary care physician. Please continue to follow-up with your outpatient paracentesis appointments as scheduled. - Diet and Activity Activity: as per physical therapy Diet: advance to your usual diet, low salt diet Hospital course: Mr. Zelaya is a 56 year old male with alpha 1 antitrypsin deficiency associated with resulting COPD and cirrhosis, well-known to our service, was admitted with altered mental status and dyspnea. He was treated for hepatic encephalopathy, pneumonia and mild COPD exacerbation. Was treated with IV steroids, antibiotics, and lactulose. It was noted that patient had been refusing his lactulose due to diarrhea which exacerbated her symptoms at home prompting his visit to the ER. He responded well to therapy and currently is back to his baseline mental status. He also received his outpatient scheduled paracentesis while he was hospitalized. He was noted to have 10 L of ascites fluid removed for which he received 40 g of albumin. He was also evaluated by physical therapy and home health was recommended. resident services coordinator were involved and home health has been set up. At this time patient is to be discharge to home with home health services with continuation of his oral steroids and antibiotics. Patient is to follow-up with primary care physician after his discharge. The patient's demonstrates understanding of his diagnosis and agrees with the discharge care and plan. - Time Spent with Patient Total time spent providing and/or coordinating discharge services: Greater than 30 minutes - Constitutional Vitals: Temp Pulse Resp BP Pulse Ox 98.3 F 72 20 118/74 94 L 02/03/17 07:20 02/03/17 07:20 02/03/17 07:20 02/03/17 07:20 02/03/17 07:20 General appearance: Present: A&O X 2, no acute distress, answers questions appropriately - Head Head exam: Present: atraumatic, normocephalic - Eye Eye exam: Present: normal appearance, conjuntiva pink, sclera anicteric - Respiratory Respiratory exam: Present: CTAB. Absent: respiratory distress, wheezes - Cardiovascular Cardiovascular exam: Present: RRR, +S1, +S2. Absent: diastolic murmur, gallop, rubs, systolic murmur - GI/Abdominal GI/Abdominal exam: Present: normal bowel sounds, soft, no peritoneal signs. Absent: distended, tenderness - Extremities Exam Extremities exam: Present: warm, radial pulses palpable and symetrical. Absent : calf tenderness, cyanotic, pedal edema - Neurological Exam Neurological exam: Present: alert - VTE Documentation of Mechanical Device: Graduated compression elastic hosiery
[2017-02-03] MEDS: (Rifaximin [Xifaxan] 550 MG) PO SCH (10:14)
[2017-02-03] MEDS: Insulin DETEMIR 100 UNIT/ML X5UNITS SQ SCH (10:14)
--- NOTE | 2017-02-03 10:21 | Physician Discharge Referral ---
Home Health/Hosp Referral Info Transfer to: Home Health Provider in Charge Post Discharge: PCP - Diagnosis (1) Acute exacerbation of chronic obstructive pulmonary disease Priority: Primary Status: Acute (2) Acute on chronic respiratory failure with hypoxia Priority: Primary Status: Acute (3) HCAP (healthcare-associated pneumonia) Priority: Secondary Status: Acute (4) Hepatic encephalopathy Priority: Primary Status: Acute (5) Lactic acidosis Priority: Secondary Status: Acute (6) Qfdfn-4-eebcqawfqlm deficiency Priority: Secondary Status: Chronic (7) CAD (coronary artery disease) Priority: Secondary Status: Chronic (8) Chronic anemia Priority: Secondary Status: Chronic (9) Chronic hepatitis B virus infection Priority: Secondary Status: Chronic (10) Cirrhosis of liver with ascites Priority: Secondary Status: Chronic (11) Diabetes mellitus Priority: Secondary Status: Chronic (12) Diastolic heart failure Priority: Secondary Status: Chronic (13) DVT prophylaxis Priority: Secondary Status: Acute (14) Hypertension Priority: Secondary Status: Chronic (15) Hypomagnesemia Priority: Secondary Status: Resolved - Respiratory Orders Oxygen / L per min Smoking Cessation: Smoking cessation has been advised. For more information, call the [place] Tobacco Quit Line at 1-046-CQIQ-NOW. - Services Needed Following services are medically necessary services: Nursing, Home Health Aide, Physical Therapy, Occupational Therapy - Transfer Medications Prescriptions: Levofloxacin [Levaquin] 750 mg PO DAILY #2 tablet PredniSONE 40 mg PO DAILY #7 tablet Home Medications: Amitriptyline [Elavil] 50 mg PO HS 10/06/15 [History] Oxygen 2 - 4 l NS CONT 08/18/16 [History] Wwrbs-6-Pvepdqkdnp Inhibitor [Glassia] 10 mg IV QWEEK 09/18/16 [History] Albuterol Sulfate [Proair Respiclick] 2 puff IH Q4H PRN #1 aer.pow.ba 10/11/16 [ Rx] Alprazolam [Xanax 1 MG Tablet] 0.5 mg PO BID PRN #20 10/11/16 [Rx] Budesonide/Formoterol 160/4.5 [Symbicort 160/4.5] 2 puff IH BID #1 10/11/16 [Rx ] Ipratropium/Albuterol Neb [Duoneb] 3 ml IH Q4HR PRN 30 Days 10/11/16 [Rx] Oxycodone HCl 15 mg PO Q4H PRN #15 tablet 10/11/16 [Rx] Pregabalin [Lyrica] 75 mg PO BID #30 capsule 10/11/16 [Rx] Prochlorperazine Maleate [Compazine] 10 mg PO Q6HR PRN #20 10/11/16 [Rx] Rifaximin [Xifaxan] 550 mg PO BID #60 tablet 10/11/16 [Rx] Sucralfate [Carafate] 1 gm PO QID 30 Days 10/11/16 [Rx] Ranitidine HCl [Acid Hospital Food Service Worker] 150 mg PO BID 10/17/16 [History] Pantoprazole Sodium [Protonix] 40 mg PO DAILY 11/01/16 [History] Ondansetron HCl [Zofran] 4 mg PO AD PRN 12/28/16 [History] Furosemide [Lasix] 80 mg PO BID 01/30/17 [History] Lactulose 30 ml PO QID 01/30/17 [History] Magnesium Oxide [Mag-Ox] 400 mg PO BID 01/30/17 [History] Metformin HCl [Metformin HCl ER] 1,000 mg PO BID 01/30/17 [History] Nadolol 20 mg PO DAILY 01/30/17 [History] Potassium Chloride [Klor-Con 10] 10 meq PO BID 01/30/17 [History] Spironolactone [Aldactone] 100 mg PO DAILY 01/30/17 [History] Levofloxacin [Levaquin] 750 mg PO DAILY #2 tablet 02/03/17 [Rx] PredniSONE 40 mg PO DAILY #7 tablet 02/03/17 [Rx] Allergies/Adverse Reactions: Allergies No Known Allergies Allergy (Verified 12/16/16 22:42) Certification: Further, I certify that my clinical findings support that this patient is homebound (i.e. absences from home require considerable and taxing effort and are for medical reasons or druze services or infrequently or short duration when for other reasons) because: Homebound Reason: Patient requires assistance of a person or device to safely leave home, Altered mental status requiring supervision when leaving home Attestation: My signature below is to certify that this patient is under my care and that I, or nurse practitioner, or a physician's yard assistant working with me, has a face-to -face encounter with this patient.
[2017-02-03] MEDS: Acetylcysteine 10% 2 ML INHSOL IH SCH (11:06)
[2017-02-03] MEDS: Budesonide/Formoterol 160/4.5 MDI IH SCH (11:06)
[2017-02-03 11:17] VITALS: BP 104/65
[2017-02-04] MEDS ORDERED: levoFLOXacin 750 MG TABLET PO SCH (09:00)
--- NOTE | 2017-03-09 06:15 | Internal Med History&Physical ---
Date of Encounter: 03/09/17 (Late entry:03/09/17) Time of Encounter: 03:00 (0600) Assessment and Plan (1) Delirium due to conditions classified elsewhere Status: Acute . (2) HCAP (healthcare-associated pneumonia) Status: Acute . (3) Hepatic encephalopathy Status: Acute . (4) Severe sepsis Status: Acute . (5) Ncrli-0-lfrqroqjewp deficiency Status: Chronic . (6) Acute exacerbation of chronic obstructive pulmonary disease Status: Acute . (7) Acute generalized abdominal pain Status: Acute . (8) Acute on chronic respiratory failure with hypoxia Status: Chronic . (9) Anasarca Status: Chronic . (10) Cirrhosis of liver with ascites Status: Chronic . Qualifiers: Hepatic cirrhosis type: unspecified hepatic cirrhosis Qualified Code(s): K74.60 - Unspecified cirrhosis of liver (11) Diastolic heart failure Status: Chronic . Qualifiers: Heart failure chronicity: acute on chronic Qualified Code(s): I50.33 - Acute on chronic diastolic (congestive) heart failure (12) Hypoalbuminemia Status: Chronic . (13) Increased ammonia level Status: Acute . (14) Lactic acidosis Status: Acute . (15) Toxic metabolic encephalopathy Status: Acute . (16) Transaminitis Status: Acute . (17) CAD (coronary artery disease) Status: Chronic . Qualifiers: Coronary Disease-Associated Artery/Lesion type: [place] artery [place] vs. transplanted heart: [place] heart Associated angina: without angina Qualified Code(s): I25.10 - Atherosclerotic heart disease of [place] coronary artery without angina pectoris (18) Chronic anemia Status: Chronic . (19) Chronic hepatitis B virus infection Status: Chronic . (20) Coagulopathy Status: Chronic . (21) Debility Status: Chronic . (22) Diabetes mellitus Status: Chronic . Qualifiers: Diabetes mellitus type: type 2 Diabetes mellitus complication status: with unspecified complications Diabetes mellitus superintendent marine oil terminal insulin use: without fpc use Qualified Code(s): E11.8 - Type 2 diabetes mellitus with unspecified complications (23) Dyslipidemia Status: Chronic . (24) Protein calorie malnutrition Status: Chronic . Internal Medicine - H&P: HPI Chief complaint: Confusion. Difficulty breathing. Admitted From: Emergency Dept Plans for Post Hospital Care: Home History of present illness: Mr. Zelaya is a 56 year old male with alpha-1 antitrypsin deficiency to [facility] via the emergency department when he presented by EMS services from all with complaints of confusion and difficulty breathing. The patient is acutely encephalopathic secondary to 1 antitrypsin deficiency cirrhotic liver disease and associated hyperammonemia. Clinical study suggests presence of healthcare associated pneumonia and severe sepsis. The patient was visited and interviewed and examined. Cumulative laboratory and radiographic data base will be considered and discussed. Pertinent ancillary medical records including ECW and PCI documentation when available was reviewed and considered. Given the patient's presenting concerns, past medical history, clinical findings and symptoms, he is admitted at this time will undergo further evaluation and disposition. Orders were written as per Computerized physician small order cutter system.......................................................................... .................... Consultative opinions will be sought as clinical circumstances justify. Pain management needs will be addressed. Laboratory and radiographic data base will be updated as appropriate. Studies include: Cultures of blood and urine and sputum, ammonia, COAGs, cardiac injury panel, BNP, UA, UDS, metabolic and hematologic panel, magnesium, phosphorus, ionized calcium, thyroid panel, lipid profile, A1c, C-peptide, CRP, sedimentation rate, respiratory infection profile, respiratory virus panel, blood gas, lactic acid, serologies, etc. Precautions: Aspiration, fall, delirium protocol/surveillance initiated. Telemetry with continuous hemodynamic monitoring and pulse oximetry initiated. Empiric antibiotic coverage (HCAP): Intravenous vancomycin, Zosyn and azithromycin pending culture data. Special studies: CT/CTA chest, chest x-ray, telemetry, EKG. Interventional radiology consultation for ultrasound-guided paracentesis ( therapeutic and diagnostic) r/o SBP. Pulmonary toilet: Incentive spirometry, aerosol bronchodilator, mucolytic, antitussive, supplemental oxygen. Corticosteroid therapy. CPAP/BiPAP supplemental oxygen delivery employed. Aerosol Mucomyst therapy may be employed. Fluid and electrolyte repletion efforts will proceed. Careful attention to fluid balance and renal recovery will be emphasized. Avoidance of nephrotoxic exposure and adverse drug drug interaction in the setting of impaired renal function will be monitored closely. Acute coronary syndrome protocol/surveillance initiated. Lactulose therapy (PO and RC) 2-3 bowel movements per day. Xifaxan therapy. Input and output and daily weights. 5521-2564 mL fluid restriction per 24 hours. Gentle diuresis as permitted by fluid balance and hemodynamic stability. DVT and PUD prophylaxis initiated: PPI therapy, intermittent pneumatic cuffs. Subcutaneous heparin. Early ambulation will be encouraged. Immunization updates recommended. Influenza and pneumococcal vaccinations as part of ongoing preventative healthcare recommendations strongly recommended. Smoking cessation counseling addressed. Patient is a former smoker. Advanced care directive discussion addressed. Patient does not declare any healthcare restrictions at this time per medical records and family. Cardiovascular risk appraisal and cardiovascular risk reduction efforts will be emphasized. Physical /occupational therapy may be counseled to evaluate patient's functional capacity and progressive mobility as circumstances permit. Sliding scale insulin coverage, ADA dietary restraint and schedule an as-needed basis fingerstick glucose assessments were initiated. Nutrition/diabetes education counseling may be considered as circumstances justify. Outpatient medication schedules will be reviewed, confirmed and facilitated as appropriate. Reconciliation of home treatments including adjustments, substitutions and reintroduction into the treatment regimen will address necessary maintenance therapies for chronic pre-existing medical conditions. Plan of care has been reviewed and discussed in detail with the patient's family. Questions addressed. Hospital course dictated by clinical findings, treatment response and potential consultative interventions. Patient is at risk for further acute clinical decline due to his frailty, chief complaints and comorbid conditions. Condition is serious. Prognosis is guarded. CODE STATUS is full. Past Med Surg Social Fam HX - Past Medical History Source: old records reviewed Medical history: arthritis, cirrhosis, COPD, coronary artery disease, DVT, diabetes, GERD, GI bleed, hepatitis, hyperlipidemia, hypertension, liver disease , osteoporosis, renal disease, other Psychiatric history: anxiety, depression - Past Surgical History Surgical History: other - Social History Smoking Status: Former smoker Smokeless Tobacco Status: No Alcohol use: none Drug use: none Occupational status: unemployed Current living situation: Home, With Family Activity Level: Independent ambulation, Mostly sedentary Recent Out of Country Travel Within the Last 8 Weeks: No Exposure or Possible Exposure to Illness During Travel: No - Family History Mother Living Status: Hx Family Cardiac Disorders: Yes Hx Family Respiratory Disorders: Yes Father Living Status: Hx Family Cardiac Disorders: No Hx Family Respiratory Disorders: No Hx Family Cancer: No Hx Family GI Disorders: No Hx Family Endocrine Disorder: No Hx Family Neuromuscular Disorders: No Hx Family Neurologic Disorders: No Hx Family HEENT Disorders: No Hx Family Autoimmune Disorders: No Internal Medicine - H&P: Meds Amitriptyline [Elavil] 50 mg PO HS 10/06/15 [History] Oxygen 2 - 4 l NS CONT 08/18/16 [History] Albuterol Sulfate [Proair Respiclick] 2 puff IH Q4H PRN #1 aer.pow.ba 10/11/16 [ Rx] Budesonide/Formoterol 160/4.5 [Symbicort 160/4.5] 2 puff IH BID #1 10/11/16 [Rx ] Ipratropium/Albuterol Neb [Duoneb] 3 ml IH Q4HR PRN 30 Days 10/11/16 [Rx] Prochlorperazine Maleate [Compazine] 10 mg PO Q6HR PRN #20 10/11/16 [Rx] Rifaximin [Xifaxan] 550 mg PO BID #60 tablet 10/11/16 [Rx] Sucralfate [Carafate] 1 gm PO QID 30 Days 10/11/16 [Rx] Ranitidine HCl [Acid Ball Truing Machine Operator] 150 mg PO BID 10/17/16 [History] Pantoprazole Sodium [Protonix] 40 mg PO BID 11/01/16 [History] Ondansetron HCl [Zofran] 4 mg PO AD PRN 12/28/16 [History] Furosemide [Lasix] 80 mg PO DAILY 01/30/17 [History] Lactulose 30 ml PO QID 01/30/17 [History] Magnesium Oxide [Mag-Ox] 400 mg PO BID 01/30/17 [History] Metformin HCl [Metformin HCl ER] 1,000 mg PO BID 01/30/17 [History] Nadolol 20 mg PO DAILY 01/30/17 [History] Potassium Chloride [Klor-Con 10] 10 meq PO BID 01/30/17 [History] Spironolactone [Aldactone] 100 mg PO DAILY 01/30/17 [History] Alprazolam [Xanax 1 MG Tablet] 0.5 mg PO BID PRN #14 tablet 02/15/17 [Rx] Hydromorphone HCl [Dilaudid] 1 mg PO Q1H PRN #15 ml 02/15/17 [Rx] LORazepam Oral Conc [Ativan Oral Conc] 1 mg PO Q6HR PRN #15 mls 02/15/17 [Rx] Oxycodone HCl 15 mg PO Q4H PRN #20 tablet 02/15/17 [Rx] Pregabalin [Lyrica] 75 mg PO BID #14 capsule 02/15/17 [Rx] Allergies morphine Adverse Reaction (Verified 02/11/17 22:44) See Comments Family at bedside states "bad reaction." Patient had to receive Narcan per family at bedside. ROS unobtainable: due to mental status All Systems PM: A 10-system review of systems was performed and is negative for pertinent findings except as documented above in the HPI. The patient is acutely encephalopathic and is a non-historian of current circumstances and events. Details are collected from cumulative medical records, EMS triage, ED staff encounters and family members. - Constitutional Constitutional: as per HPI - EENT Eyes: as per HPI Ears: as per HPI Nose, mouth and throat: as per HPI - Cardiovascular Cardiovascular ROS IM: as per HPI - Respiratory Respiratory: as per HPI - Gastrointestinal Gastrointestinal: as per HPI - Genitourinary Genitourinary ROS male: as per HPI - Musculoskeletal Musculoskeletal ROS IM: as per HPI - Integumentary Integumentary IM: as per HPI - Neurological Neurological ROS: as per HPI - Psychiatric Psychiatric: as per HPI - Endocrine Endocrine IM: as per HPI - Hematologic/Lymphatic Hematologic/Lymphatic: as per HPI - Allergic/Immunologic Allergic/Immunologic: as per HPI - Constitutional Vitals: Temp Pulse Resp BP Pulse Ox 97.8 F 71 18 104/65 94 L 02/03/17 11:16 02/03/17 11:16 02/03/17 11:16 02/03/17 11:16 02/03/17 11:16 General appearance: Present: cachectic, disheveled, A&O X 2, obese. Absent: cooperative, answers questions appropriately - Head Head exam: Present: atraumatic, normocephalic - Eye Eye exam: Present: EOMI, PERRL, conjuntiva pink, sclera anicteric Pupils: Present: normal accommodation, PERRL - ENT ENT exam: Present: mucous membranes moist, normal oropharynx - Neck Neck exam general surgery: Present: supple, trachea midline. Absent: lymphadenopathy - Respiratory Respiratory exam: Present: decreased breath sounds. Absent: accessory muscle use, CTAB, rales, rhonchi, stridor, wheezes - Cardiovascular Cardiovascular exam: Present: distant heart sounds, RRR, +S1, +S2. Absent: diastolic murmur, gallop, rubs, systolic murmur - GI/Abdominal GI/Abdominal exam: Present: distended, normal bowel sounds, soft, no peritoneal signs. Absent: tenderness - Extremities Exam Extremities exam: Present: pedal edema, warm, radial pulses palpable and symetrical. Absent: calf tenderness, cyanotic - Neurological Exam Neurological exam: Present: alert, altered, CN II-XII intact, no focal deficits. Absent: oriented X3, pronater drift, facial droop, speech deficit - Expanded Neurological Exam Neurological exam expanded: Present: ataxia, inattentive, protecting the airway , tremor. Absent: expressive aphasia, receptive aphasia Patient oriented to: Present: person, place. Absent: time Speech: Present: garbled Ataxia: Present: yes Coma Scale Eye Opening: To Voice Coma Scale Motor Response: Obeys Commands Coma Scale Verbal Response: Confused Coma Scale Total: 13 - Psychiatric Psychiatric exam: Present: flat affect - Skin Skin exam: Present: dry, intact, warm Internal Med - H&P Results - Labs CBC & Chem 7: 02/03/17 04:27 02/03/17 04:27 - Impressions ITS Impressions Paracentesis Ultrasound 02/01/17 00:00 IMPRESSION: Successful ultrasound guided paracentesis. D/ / Sudeep Thompson MD / Sudeep Thompson MD Interpreting Provider: Sudeep Thompson MD - VTE Documentation of Mechanical Device: Graduated compression elastic hosiery
== END 2017-02-03 13:45 | disposition home health service (06) | DRG 871 ==
LOC: EMEROO 20:30 → 2NENU 20:30 → 2NNU 01-30 10:13 → SUATTDRO 01-30 15:28
PROVIDERS: ADMIT Internal Medicine; ATTEND Internal Medicine

== ENCOUNTER 2017-02-11 19:03 | Inpatient (IN) ==
--- NOTE | 2017-02-11 19:26 | Emergency Department Note ---
Disposition Clinical Impression: Hyperammonemia Altered mental status Qualifiers: Altered mental status type: unspecified Qualified Code(s): R41.82 - Altered mental status, unspecified Dyspnea Qualifiers: Dyspnea type: unspecified Qualified Code(s): R06.00 - Dyspnea, unspecified Disposition: Admitted As Inpatient Condition: Good Referrals: Tiny Santo DO [Primary Care Provider] - SOB HPI - General Chief Complaint: ED Shortness of Breath/Dyspnea Stated Complaint: SOB Time Seen by Provider: 02/11/17 19:05 Source: EMS Mode of arrival: EMS Limitations: altered mental status Nursing Notes Reviewed: Yes Vital Signs Reviewed: Yes - History of Present Illness 56-year-old male history of COPD, diabetes, end-stage liver disease currently on transplant list with routine paracentesis who presents to the ER via EMS due to shortness of breath. No family is present to validate history. EMS reports they were called due to shortness of breath. They state he was recently in the hospital and missed his scheduled paracentesis. Report increased swelling to his abdomen as well as shortness of breath. He was given 1 DuoNeb in route due to wheezing. Family is currently on her way. Patient has previous presentations and admissions for similar symptoms. No other complaints. Pt Subjective Complaint: shortness of breath Onset (ago): unknown Context: other (Unknown) Severity: none Consistency/Duration: constant Improves with: nothing Worsens with: nothing Known history of: COPD, other (End-stage liver disease) Treatment prior to arrival: oxygen, bronchodilator Cough present: Yes Cough Description: Involuntary Cough Frequency: Intermittent Sputum production: No Sputum Amount: None - Related Data Home oxygen amount: other (Unknown) Home Medications Medication Instructions Recorded Confirmed Amitriptyline [Elavil] 50 mg PO HS 10/06/15 02/11/17 Oxygen 2 - 4 l NS CONT 08/18/16 02/11/17 Reyrz-2-Upoomyzlrd Inhibitor 10 mg IV QWEEK 09/18/16 02/11/17 [Glassia] Ranitidine HCl [Acid Nutrition Teacher] 150 mg PO BID 10/17/16 02/11/17 Pantoprazole Sodium [Protonix] 40 mg PO BID 11/01/16 02/11/17 Ondansetron HCl [Zofran] 4 mg PO AD PRN 12/28/16 02/11/17 Furosemide [Lasix] 80 mg PO DAILY 01/30/17 02/11/17 Lactulose 30 ml PO QID 01/30/17 02/11/17 Magnesium Oxide [Mag-Ox] 400 mg PO BID 01/30/17 01/30/17 Metformin HCl [Metformin HCl ER] 1,000 mg PO BID 01/30/17 02/11/17 Nadolol 20 mg PO DAILY 01/30/17 02/11/17 Potassium Chloride [Klor-Con 10] 10 meq PO BID 01/30/17 02/11/17 Spironolactone [Aldactone] 100 mg PO DAILY 01/30/17 02/11/17 Previous Rx's Medication Instructions Recorded Albuterol Sulfate [Proair 2 puff IH Q4H PRN #1 aer.pow.ba 10/11/16 Respiclick] Alprazolam [Xanax 1 MG Tablet] 0.5 mg PO BID PRN #20 10/11/16 Budesonide/Formoterol 160/4.5 2 puff IH BID #1 10/11/16 [Symbicort 160/4.5] Ipratropium/Albuterol Neb [Duoneb] 3 ml IH Q4HR PRN 30 Days 10/11/16 Oxycodone HCl 15 mg PO Q4H PRN #15 tablet 10/11/16 Pregabalin [Lyrica] 75 mg PO BID #30 capsule 10/11/16 Prochlorperazine Maleate 10 mg PO Q6HR PRN #20 10/11/16 [Compazine] Rifaximin [Xifaxan] 550 mg PO BID #60 tablet 10/11/16 Sucralfate [Carafate] 1 gm PO QID 30 Days 10/11/16 Allergies Allergy/AdvReac Type Severity Reaction Status Date / Time morphine AdvReac See Verified 02/11/17 22:44 Comments Limitations: ROS unobtainable due to patients medical condition Past Medical History - Past Medical History Attestation: Yes The following information was validated with the patient. Source: old records reviewed Medical history: Reports: arthritis, cirrhosis, COPD, coronary artery disease, DVT, diabetes, GERD, GI bleed, hepatitis, hyperlipidemia, hypertension, liver disease, osteoporosis, renal disease, other Surgical history: Reports: other Psychiatric history: Reports: anxiety, depression - Social History Smoking Status: Former smoker Smokeless Tobacco Status: No Alcohol use: Reports: none Drug use: Reports: none Physical Exam - General Limitations: altered mental status General appearance: alert, lethargic - Head Head exam: atraumatic, normocephalic - Eye Eye exam: Present: normal appearance, EOMI - ENT ENT exam: mucous membranes dry - Neck Neck exam: Present: normal inspection - Chest Chest inspection: Present: normal inspection, symmetric chest wall rise - Respiratory Respiratory exam: Present: other (Course breath sounds without wheezing or focal diminishment.) - Cardiovascular Cardiovascular exam: Present: regular rate, normal rhythm, normal heart sounds - Abdominal Exam Abdominal exam: Present: soft, distention (Distended abdomen with ascites on exam.) - Expanded Upper Extremity Exam Shoulder exam: Present: normal inspection, full ROM Arm exam: Present: normal inspection, full ROM Elbow exam: Present: normal inspection, full ROM Forearm/Wrist exam: Present: normal inspection, full ROM Hand exam: Present: normal inspection, full ROM - Expanded Lower Extremity Exam Hip/Pelvis exam: Present: normal inspection, full ROM Upper leg exam: Present: normal inspection, full ROM Knee exam: Present: normal inspection, full ROM Lower leg exam: Present: normal inspection, full ROM Ankle exam: Present: normal inspection, full ROM Foot/toe exam: Present: normal inspection, full ROM - Neurological Exam Neurological exam: Present: alert - Skin Skin exam: Present: warm, dry, intact, normal color Course Course Narrative: Patient seen and examined. Vital signs reviewed. He is able to shake his head yes and no to some questions but generally will not answer. His vitals are stable. We will do an altered mental status workup and check his ammonia given his liver disease. - Reevaluation(s) Reevaluation #1: Patient was D satting in the department. Placed on a nonrebreather currently 90 -93% on 15 L. Reevaluation #2: Discussed results of lab work with the patient and family. Vital Signs Temperature 98.1 F 02/11/17 19:04 Pulse Rate 85 02/11/17 19:04 Respiratory Rate 22 02/11/17 19:04 Blood Pressure 120/82 02/11/17 19:04 O2 Sat by Pulse Oximetry 98 02/11/17 19:04 Temperature 98.1 F 02/11/17 19:04 Pulse Rate 90 02/11/17 23:51 Respiratory Rate 17 02/12/17 00:03 Blood Pressure 117/85 02/11/17 23:51 O2 Sat by Pulse Oximetry 94 L 02/12/17 00:14 Oxygen Delivery Oxygen Delivery Venti Mask Shortness of Breath/Dyspnea - [facility] Narrative Medical decision making narrative: 56-year-old male history of cirrhosis presents to the ER due to shortness of breath and altered mental status. He is currently on a nonrebreather at 15 L. He does have abdominal distention. His ammonia is elevated at 79. Chest x-ray shows no obvious pneumonia. Lactulose was given here in the department. Patient admitted to the hospital service for continued management. - Lab Data Lab results reviewed: Yes I reviewed the patient's lab results. Result diagrams: 02/11/17 20:39 02/11/17 20:39 Lab Results 02/11/17 02/11/17 02/11/17 Range/Units 19:25 20:39 20:39 WBC 14.5 H (4.3-11.1) K/mcL RBC 3.42 L (4.19-5.50) M/mcL Hgb 10.1 L (12.9-16.9) g/dL Hct 31.7 L (37.5-50.1) % MCV 92.7 (83.0-100.0) fL MCH 29.5 (28.0-33.3) pg MCHC 31.9 (31.6-35.5) g/dL RDW 17.2 H (11.5-14.5) % Plt Count 108 L (140-400) K/mcL MPV 10.5 (9.4-12.4) fL Immature Gran % 0.9 (0-4) % Seg Neutrophils % 76.2 % Lymphocytes % 10.1 % Monocytes % 9.8 % Eosinophils % 2.9 % Basophils % 0.1 % Neutrophils # 11.1 H (1.6-8.9) K/mcL Lymphocytes # 1.5 (0.6-4.6) K/mcL Monocytes # 1.4 H (0.0-1.3) K/mcL Eosinophils # 0.4 (0.0-0.6) K/mcL Basophils # 0.0 (0.0-0.2) K/mcL PT 20.7 H (9.4-12.1) Seconds INR 1.9 APTT 27.8 (26.0-36.0) Seconds Sodium (136-145) mEq/L Potassium (3.5-4.5) mEq/L Chloride (98-109) mEq/L Carbon Dioxide (19-29) mEq/L BUN (8-26) mg/dL Creatinine (0.72-1.25) mg/dL Est GFR ( Amer) (> 60) Est GFR (Non-Af Amer) (> 60) BUN/Creatinine Ratio (6-26) Glucose (70-99) mg/dL POC Glucose 163 H (58-89) Calculated Osmolality (280-300) Calcium (8.6-10.8) mg/dL Total Bilirubin (0.2-1.2) mg/dL Direct Bilirubin (0.0-0.5) mg/dL Indirect Bilirubin (0.0-1.2) mg/dL AST (5-34) Units/L ALT (0-55) Units/L Alkaline Phosphatase (38-126) Units/L Ammonia (18-72) mcmol/L Troponin I (0-0.03) ng/mL Serum Total Protein (6.0-8.3) g/dL Albumin (3.5-5.0) g/dL Globulin (2.4-3.5) g/dL Albumin/Globulin Ratio (1.1-2.2) TSH (0.350-4.840) mcIU/mL 02/11/17 02/11/17 02/11/17 Range/Units 20:39 20:39 20:39 WBC (4.3-11.1) K/mcL RBC (4.19-5.50) M/mcL Hgb (12.9-16.9) g/dL Hct (37.5-50.1) % MCV (83.0-100.0) fL MCH (28.0-33.3) pg MCHC (31.6-35.5) g/dL RDW (11.5-14.5) % Plt Count (140-400) K/mcL MPV (9.4-12.4) fL Immature Gran % (0-4) % Seg Neutrophils % % Lymphocytes % % Monocytes % % Eosinophils % % Basophils % % Neutrophils # (1.6-8.9) K/mcL Lymphocytes # (0.6-4.6) K/mcL Monocytes # (0.0-1.3) K/mcL Eosinophils # (0.0-0.6) K/mcL Basophils # (0.0-0.2) K/mcL PT (9.4-12.1) Seconds INR APTT (26.0-36.0) Seconds Sodium 134 L (136-145) mEq/L Potassium 5.4 H (3.5-4.5) mEq/L Chloride 104 (98-109) mEq/L Carbon Dioxide 22 (19-29) mEq/L BUN 31 H (8-26) mg/dL Creatinine 0.82 (0.72-1.25) mg/dL Est GFR ( Amer) > 60 (> 60) Est GFR (Non-Af Amer) > 60 (> 60) BUN/Creatinine Ratio 38 H (6-26) Glucose 180 H (70-99) mg/dL POC Glucose (58-89) Calculated Osmolality 289 (280-300) Calcium 9.0 (8.6-10.8) mg/dL Total Bilirubin 1.6 H (0.2-1.2) mg/dL Direct Bilirubin 0.7 H (0.0-0.5) mg/dL Indirect Bilirubin 0.9 (0.0-1.2) mg/dL AST 82 H (5-34) Units/L ALT 57 H (0-55) Units/L Alkaline Phosphatase 136 H (38-126) Units/L Ammonia 79 H (18-72) mcmol/L Troponin I 0.01 (0-0.03) ng/mL Serum Total Protein 7.6 (6.0-8.3) g/dL Albumin 2.0 L (3.5-5.0) g/dL Globulin 5.6 H (2.4-3.5) g/dL Albumin/Globulin Ratio 0.4 L (1.1-2.2) TSH 0.791 (0.350-4.840) mcIU/mL - Radiology Data Radiology results reviewed: Yes I reviewed the patient's radiology results. Chest X-Ray 02/11/17 19:10 IMPRESSION: 1. Bibasilar airspace opacities left greater than right without significant change from the previous exam. 2. COPD. D/ / Jake Elizalde MD / Jake Elizalde MD Interpreting Provider: Jake Elizalde MD - EKG Data EKG attestation: Yes I reviewed and interpreted this EKG. EKG results narrative: EKG demonstrates normal sinus rhythm with a rate of 84 bpm. Left axis deviation. NJ interval 153 QRS duration 138 QTC 415 T wave inversions in lead aVL. T-wave flattening in lead 1. No ST elevations or depressions. No acute ischemic findings. No significant changes from previous EKG dated 01/29/17. S.B.A.R. - S.B.A.Venancio Situation: Demographics, MOA Background: Presenting Complaint, Relevant PMH, Meds, & Allergies Assessment: Vital Signs, Course and respsone to treatment, Exam Concerns, Patient/Family Expectation, Pertinant Lab Results, Outstanding Labs Recommendation: Barrier(s) to disposition, Recommendation based on pending studies, treatments, or consults S.B.A.R. Report Given to: Dr.Lawson Mueller Repor Time: 00:20 Attestation Statement - Attestation Attestation: I, Elvis Bosch MD, personally performed a history and physical exam of the patient and discussed their management with the resident. I reviewed the resident's note and agree with the documented findings, medical decision making , and plan of care. 56-year-old male with history of COPD and end-stage liver disease. He presents for increased difficulty breathing and decreased mental status. I have seen this patient previously and his presentation tonight is typical of his usual presentation. His reports that usually when he gets in this condition is because of his ammonia level being high. The patient is awake but unable to answer questions or provide any history or review of systems. On examination patient is a well-developed male in no acute distress. He is awake and follows some commands but nonverbal. Reading. Mucous membranes are very dry. Breath sounds are decreased bilaterally with some bibasilar rhonchi. Heart regular rate and rhythm. Abdomen soft with normal bowel sounds. Labs reviewed. Chest x-ray shows some bibasilar airspace opacities unchanged from previous exam. The hospitalist, Dr. Aguila, was consulted and accepted admission of the patient.
[2017-02-11 20:52] LABS: Basophils % 0.1 %; Eosinophils # 0.4 K/mcL (0.0-0.6); Eosinophils % 2.9 %; Hematocrit 31.7 % (37.5-50.1); Hemoglobin 10.1 g/dL (12.9-16.9); Immature Granulocytes % 0.9 % (0-4); Lymphocytes # 1.5 K/mcL (0.6-4.6); Lymphocytes % 10.1 %; Mean Corpuscular HGB Conc 31.9 g/dL (31.6-35.5); Mean Corpuscular Hemoglobin 29.5 pg (28.0-33.3); Mean Corpuscular Volume 92.7 fL (83.0-100.0); Mean Platelet Volume 10.5 fL (9.4-12.4); Monocytes # 1.4 K/mcL (0.0-1.3); Monocytes % 9.8 %; Neutrophils # 11.1 K/mcL (1.6-8.9); Platelet Count 108 K/mcL (140-400); Red Blood Count 3.42 M/mcL (4.19-5.50); Red Cell Distribution Width 17.2 % (11.5-14.5); Segmented Neutrophils % 76.2 %
[2017-02-11 20:55] LABS: INR 1.9; Prothrombin Time 20.7 Seconds (9.4-12.1)
[2017-02-11 20:58] LABS: Activated Partial Thrombo Time 27.8 Seconds (26.0-36.0)
[2017-02-11 21:03] LABS: Alanine Aminotransferase 57 Units/L (0-55); Albumin/Globulin Ratio 0.4 (1.1-2.2); Aspartate Amino Transferase 82 Units/L (5-34); BUN/Creatinine Ratio 38 (6-26); Bilirubin,Direct 0.7 mg/dL (0.0-0.5); Bilirubin,Indirect 0.9 mg/dL (0.0-1.2); Bilirubin,Total 1.6 mg/dL (0.2-1.2); Blood Urea Nitrogen 31 mg/dL (8-26); Carbon Dioxide 22 mEq/L (19-29); Chloride 104 mEq/L (98-109); Globulin 5.6 g/dL (2.4-3.5); Glucose 180 mg/dL (70-99); Osmolality,Calculated 289 (280-300); Potassium 5.4 mEq/L (3.5-4.5); Sodium 134 mEq/L (136-145); Total Protein 7.6 g/dL (6.0-8.3); eGFR For African Americans > 60 (> 60); eGFR For Non-African Americans > 60 (> 60)
[2017-02-11] MEDS ORDERED: Ipratropium/Albuterol Neb 3 ML IH ONE (21:10)
[2017-02-11 21:13] LABS: Alkaline Phosphatase 136 Units/L (38-126)
[2017-02-11 21:23] LABS: Thyroid Stimulating Hormone 0.791 mcIU/mL (0.350-4.840)
[2017-02-11] MEDS ORDERED: Lactulose Oral Soln 20 GM/30 ML UDC PO ONE (22:58)
[2017-02-12] MEDS ORDERED: Dextrose Gel 15 GM PO PRN ×2 (02:04)
[2017-02-12] MEDS ORDERED: Naloxone 0.4 MG/ML INJ IVP PRN (02:04)
[2017-02-12] MEDS ORDERED: D5% in Water 1,000 ML IV PRN (02:04)
[2017-02-12] MEDS ORDERED: *HR* Dextrose 50 % in Water (Syg) 50 ML SYRINGE IVP PRN (02:04)
[2017-02-12] MEDS ORDERED: Ondansetron 4 MG/2 ML VIAL IVP PRN (02:04)
[2017-02-12] MEDS ORDERED: Ipratropium/Albuterol Neb 3 ML IH PRN (02:11)
[2017-02-12] MEDS ORDERED: *HR* LORazepam 2 MG/ML VIAL IVP PRN (02:13)
[2017-02-12] MEDS ORDERED: Lactulose 200 GM, Sodium Chloride IRRigation 700 ML RC ONE (02:16)
--- NOTE | 2017-02-12 02:24 | Internal Med History&Physical ---
<Jose Mendez - Last Filed: 02/12/17 03:23> Date of Encounter: 02/12/17 Time of Encounter: 01:15 Assessment and Plan (1) Acute on chronic respiratory failure with hypoxia Current visit: No Status: Acute Patient has COPD at baseline, but patient currently having acute episode of respiratory failure. Likely due to his ascites limiting his ability to breathe adequately. After desaturating to the low 80s on 15 L nonrebreather, patient was switched to BiPAP which has allowed him to maintain oxygen saturation in the mid to low 90s. Cefepime started due to concerns for SBP Interventional radiology consulted for the need for paracentesis Lab work orders in place from peritoneal fluid in anticipation of imminent paracentesis Continue home DuoNeb breathing treatments as well as home Symbicort Lasix 40 mg IV, his home dose only IV form Telemetry and continuous pulse oximetry due to concerns of respiratory failure Consult to PT/OT to patient overall weakness Consult palliative care to discuss goals of care, assess long-term goals with possible need for ECF placement, and evaluate need for resources Consult nutrition to discuss possible nutritional supplements to assist with overall nutrition (2) Ascites Current visit: No Status: Chronic Patient has ascites requiring regular paracenteses, she reportedly has not had paracentesis since he left the hospital on 02/03/17. We were unable to fully assess for abdominal tenderness is due to patient mental status, with current white count, transaminitis, and frequent hospitalizations there is concern for spontaneous bacterial peritonitis, though this is suspected. We will start cefepime IR has been consulted regarding need for paracentesis We will order lab work on peritoneal fluid Continue home Lasix, only converted to IV form Qualifiers: Ascites type: other type Qualified Code(s): R18.8 - Other ascites (3) Hepatic encephalopathy Current visit: No Status: Acute Pillar reports progressive hepatic encephalopathy since discharge from hospital on 01/30/17. He has a chronic problem with hepatic encephalopathy with difficulty having the recommended number of bowel movements per day. He presents a slightly elevated ammonia, but more importantly he is lethargic with signs of encephalopathy. We will give lactulose enema Continue home dose lactulose with bowel movements titrated to 3-5 per day By mouth Dulcolax (4) At high risk for respiratory distress Current visit: Yes Status: Acute Due to patient's underlying COPD, recent treatment for respiratory infection, and current hypoxic respiratory failure requiring BiPAP in order to maintain adequate oxygen saturations this patient is at high risk for impending respiratory failure. We will continue to monitor his oxygen saturation is closely and consider intubation if patient unable to maintain adequate ventilation on BiPAP (5) Cirrhosis of liver with ascites Current visit: No Status: Chronic Patient ascites due to his cirrhosis, but comes from alpha-1 antitrypsin deficiency. Plan as above Qualifiers: Hepatic cirrhosis type: unspecified hepatic cirrhosis Qualified Code(s): K74.60 - Unspecified cirrhosis of liver (6) Coagulopathy Current visit: No Status: Chronic Due to liver cirrhosis We will start EPCDs (7) COPD (chronic obstructive pulmonary disease) Current visit: No Status: Chronic Not currently in exacerbation Continue home DuoNeb, Symbicort Qualifiers: COPD type: unspecified COPD Qualified Code(s): J44.9 - Chronic obstructive pulmonary disease, unspecified (8) Diabetes mellitus Current visit: No Status: Chronic We will hold home metformin Start medium dose sliding scale subcutaneous insulin before meals at bedtime Qualifiers: Diabetes mellitus type: type 2 Diabetes mellitus complication status: with unspecified complications Diabetes mellitus exterminator helper termite insulin use: without jail use Qualified Code(s): E11.8 - Type 2 diabetes mellitus with unspecified complications (9) DVT prophylaxis Current visit: No Status: Acute Pneumatic compression devices (10) Ysjev-5-opvjvkvoznc deficiency Current visit: No Status: Chronic Internal Medicine - H&P: HPI Chief complaint: Lethargy and AMS Admitted From: Home History of present illness: Mr. Zelaya is a 56 year old male with medical history significant for liver cirrhosis, COPD, alpha-1 antitrypsin deficiency, coronary artery disease, diabetes mellitus, GERD, CKG, and a former gastrointestinal bleed who is brought to the emergency department by family stay due to increased altered mental status and lethargy. Mr. Zelaya is well-known to the care team see [place] due to recurrent problems with abdominal distention, difficulty breathing , and hepatic encephalopathy. At presentation this evening, Mr. Zelaya appears very lethargic though alert and able to very weakly respond to some questions. His family including and sons are present to assist in history. He had recently been admitted on 01/30/17 with discharge on 02/03/17 after having undergone treatment for acute exacerbation COPD, hepatic encephalopathy, and ascites at that time. Since that discharge on 02/03/17 the family reports he has had progressive worsening and increased lethargy. They state that he has not had a regular paracentesis since his discharge and have noticed increased abdominal girth and distention in that time. They also state that his mental status has been slowly deteriorating and reported that he has continued generalized weakness, making difficult for him to have the recommended amount of bowel movements needed to help prevent hepatic encephalopathy. Therefore these had only 3 bowel movements a day with 3-5 are recommended. He is able to nod or shake his head weakly when asked simple yes no questions, knee reports difficulty in breathing, nausea, and some lightheadedness. He denies vomiting, abdominal pain, chest pain. Past Med Surg Social Fam HX - Past Medical History Medical history: arthritis, cirrhosis, COPD, coronary artery disease, DVT, diabetes, GERD, GI bleed, hepatitis, hyperlipidemia, hypertension, liver disease , osteoporosis, renal disease, other Psychiatric history: anxiety, depression - Past Surgical History Surgical History: other - Social History Smoking Status: Former smoker Smokeless Tobacco Status: No Alcohol use: none Drug use: none - Family History Mother Living Status: Hx Family Cardiac Disorders: Yes Hx Family Respiratory Disorders: Yes Father Living Status: Hx Family Cardiac Disorders: No Hx Family Respiratory Disorders: No Hx Family Cancer: No Hx Family GI Disorders: No Hx Family Endocrine Disorder: No Hx Family Neuromuscular Disorders: No Hx Family Neurologic Disorders: No Hx Family HEENT Disorders: No Hx Family Autoimmune Disorders: No Internal Medicine - H&P: Meds Amitriptyline [Elavil] 50 mg PO HS 10/06/15 [History] Oxygen 2 - 4 l NS CONT 08/18/16 [History] Uddpu-5-Mholwlkdyg Inhibitor [Glassia] 10 mg IV QWEEK 09/18/16 [History] Albuterol Sulfate [Proair Respiclick] 2 puff IH Q4H PRN #1 aer.pow.[email or web address] 10/11/16 [ Rx] Alprazolam [Xanax 1 MG Tablet] 0.5 mg PO BID PRN #20 10/11/16 [Rx] Budesonide/Formoterol 160/4.5 [Symbicort 160/4.5] 2 puff IH BID #1 10/11/16 [Rx ] Ipratropium/Albuterol Neb [Duoneb] 3 ml IH Q4HR PRN 30 Days 10/11/16 [Rx] Oxycodone HCl 15 mg PO Q4H PRN #15 tablet 10/11/16 [Rx] Pregabalin [Lyrica] 75 mg PO BID #30 capsule 10/11/16 [Rx] Prochlorperazine Maleate [Compazine] 10 mg PO Q6HR PRN #20 10/11/16 [Rx] Rifaximin [Xifaxan] 550 mg PO BID #60 tablet 10/11/16 [Rx] Sucralfate [Carafate] 1 gm PO QID 30 Days 10/11/16 [Rx] Ranitidine HCl [Acid Farm Advisor] 150 mg PO BID 10/17/16 [History] Pantoprazole Sodium [Protonix] 40 mg PO BID 11/01/16 [History] Ondansetron HCl [Zofran] 4 mg PO AD PRN 12/28/16 [History] Furosemide [Lasix] 80 mg PO DAILY 01/30/17 [History] Lactulose 30 ml PO QID 01/30/17 [History] Magnesium Oxide [Mag-Ox] 400 mg PO BID 01/30/17 [History] Metformin HCl [Metformin HCl ER] 1,000 mg PO BID 01/30/17 [History] Nadolol 20 mg PO DAILY 01/30/17 [History] Potassium Chloride [Klor-Con 10] 10 meq PO BID 01/30/17 [History] Spironolactone [Aldactone] 100 mg PO DAILY 01/30/17 [History] Allergies morphine Adverse Reaction (Verified 02/11/17 22:44) See Comments Family at bedside states "bad reaction." Patient had to receive Narcan per family at bedside. All Systems PM: ROS limited due to patient mental status, limited information on ROS gain is in the history of present illness - Constitutional Vitals: Temp Pulse Resp BP Pulse Ox 96.9 F L 95 17 151/98 100 02/12/17 01:46 02/12/17 01:46 02/12/17 01:46 02/12/17 01:46 02/12/17 01:46 Exam: General: Cooperative, mild distress, alert and oriented 3, answers questions appropriately Head: Normocephalic, atraumatic Eye: Conjunctiva pink, sclera anicteric, EOMI, PERRL Neck: Supple, trachea midline Respiratory: No accessory muscle usage, decreased breath sounds noted, no wheezes/rhonchi/rales appreciated Cardiovascular: Regular rate and rhythm, S1 and S2 present, no murmurs/rubs/ gallops/clicks appreciated GI/abdominal: Distention noted, fluid wave present, umbilicus protruding, nontender, soft, normal bowel sounds, no peritoneal signs Extremities: No calf tenderness, noncyanotic, no pedal edema appreciated, warm, lower extremity pulses palpable and symmetrical Neurological: Alert and oriented 3, no facial droop, no asterixis observed, strength 4/5 in upper and lower extremities Skin: Dry, intact, normal color, spider angiomata present Internal Med - H&P Results - Labs CBC & Chem 7: 02/11/17 20:39 02/11/17 20:39 <Derrell Aguilais - Last Filed: 02/12/17 21:18> Assessment and Plan (1) At high risk for aspiration Current visit: Yes Status: Acute . (2) At high risk for altered respiratory function Current visit: Yes Status: Acute . (3) At high risk for altered skin integrity Current visit: Yes Status: Acute . (4) At high risk for cardiac arrhythmia Current visit: Yes Status: Acute . (5) At high risk for confusion Current visit: Yes Status: Acute . (6) At high risk for disuse syndrome Current visit: Yes Status: Acute . (7) At high risk for falls Current visit: Yes Status: Acute . (8) At high risk for hemodynamic instability Current visit: Yes Status: Acute . (9) At risk for acute ischemic cardiac event Current visit: Yes Status: Acute . (10) Complete immobility due to severe physical disability or frailty Current visit: Yes Status: Acute . (11) Todms-2-rggraozsiub deficiency Current visit: Yes Status: Chronic . (12) Altered mental status Current visit: Yes Status: Acute . Qualifiers: Altered mental status type: delirium Qualified Code(s): R41.0 - Disorientation, unspecified (13) At high risk for respiratory distress Current visit: Yes Status: Acute (14) Dyspnea Current visit: Yes Status: Acute . Qualifiers: Dyspnea type: shortness of breath Qualified Code(s): R06.02 - Shortness of breath (15) Hyperammonemia Current visit: Yes Status: Acute . (16) Acute exacerbation of chronic obstructive pulmonary disease Current visit: Yes Status: Acute . (17) Acute generalized abdominal pain Current visit: Yes Status: Acute . (18) Acute on chronic respiratory failure with hypoxia Current visit: Yes Status: Acute (19) At risk for polypharmacy Current visit: Yes Status: Acute . (20) Chronic anemia Current visit: Yes Status: Acute . (21) Chronic blood loss anemia Current visit: Yes Status: Acute . (22) Delirium due to conditions classified elsewhere Current visit: Yes Status: Acute . (23) Electrolyte and fluid disorder Current visit: Yes Status: Acute . (24) Hepatic encephalopathy Current visit: Yes Status: Acute . (25) Hyperammonemia Current visit: Yes Status: Acute . (26) Hyperbilirubinemia Current visit: Yes Status: Acute . (27) Lactic acidosis Current visit: Yes Status: Acute . (28) Systemic inflammatory response syndrome Current visit: Yes Status: Acute . (29) Toxic metabolic encephalopathy Current visit: Yes Status: Acute . (30) Transaminitis Current visit: Yes Status: Acute . (31) Anasarca Current visit: Yes Status: Chronic . (32) CAD (coronary artery disease) Current visit: Yes Status: Chronic . Qualifiers: Coronary Disease-Associated Artery/Lesion type: [place] artery [place] vs. 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 Qualifiers: Emphysema type: panlobular Qualified Code(s): J43.1 - Panlobular emphysema (34) Chronic hepatitis B virus infection Current visit: Yes Status: Chronic . (35) Chronic liver failure without hepatic coma Current visit: Yes Status: Chronic . (36) Cirrhosis of liver with ascites Current visit: Yes Status: Chronic Qualifiers: Hepatic cirrhosis type: unspecified hepatic cirrhosis Qualified Code(s): K74.60 - Unspecified cirrhosis of liver (37) Coagulopathy Current visit: Yes Status: Chronic (38) Diabetes mellitus Current visit: Yes Status: Chronic Qualifiers: Diabetes mellitus type: type 2 Diabetes mellitus complication status: with unspecified complications Diabetes mellitus jail insulin use: without jail use Qualified Code(s): E11.8 - Type 2 diabetes mellitus with unspecified complications (39) Diastolic CHF, chronic Current visit: Yes Status: Chronic . (40) Dyslipidemia Current visit: Yes Status: Chronic . (41) Encephalopathy chronic Current visit: Yes Status: Chronic . (42) Frailty Current visit: Yes Status: Chronic . (43) GERD (gastroesophageal reflux disease) Current visit: Yes Status: Chronic . Qualifiers: Esophagitis presence: esophagitis presence not specified Qualified Code(s) : K21.9 - Gastro-esophageal reflux disease without esophagitis (44) HLD (hyperlipidemia) Current visit: Yes Status: Chronic . Qualifiers: Hyperlipidemia type: unspecified Qualified Code(s): E78.5 - Hyperlipidemia , unspecified (45) HTN (hypertension) Current visit: Yes Status: Chronic . Qualifiers: Hypertension type: unspecified secondary hypertension Qualified Code(s): I15.9 - Secondary hypertension, unspecified; I15 - Secondary hypertension (46) History of DVT (deep vein thrombosis) Current visit: Yes Status: Chronic . (47) History of esophageal varices with bleeding Current visit: Yes Status: Chronic . (48) Hypoalbuminemia Current visit: Yes Status: Chronic . (49) Hyponatremia with decreased serum osmolality Current visit: Yes Status: Chronic . (50) Protein calorie malnutrition Current visit: Yes Status: Chronic . (51) Thrombocytopenia Current visit: Yes Status: Chronic . (52) Type II diabetes mellitus Current visit: No Status: Chronic . Qualifiers: Diabetes mellitus complication status: with unspecified complications Diabetes mellitus exterminator helper termite insulin use: unspecified exterminator helper termite insulin use status Qualified Code(s): E11.8 - Type 2 diabetes mellitus with unspecified complications (53) Sepsis Current visit: Yes Status: Suspected . Qualifiers: Sepsis type: sepsis due to unspecified organism Qualified Code(s): A41.9 - Sepsis, unspecified organism (54) Acute kidney injury Current visit: Yes Status: Acute . Internal Medicine - H&P: HPI Admitted From: Emergency Dept Plans for Post Hospital Care: Home History of present illness: Mr. Zelaya is a 56 year old male with complicated past medical history is admitted to [facility] via the emergency department where he presented via EMS services from home with reports of increasing difficulty in breathing and alteration in mental status. Patient is well-known to this facility with 1 antitrypsin deficiency associated COPD/emphysema and end-stage cirrhotic, liver disease, portal systemic hypertension with variceal disease and large burden, paracentesis dependent ascites. He also suffers quite significant hepatic encephalopathy due to chronic recurring hyperammonemia. Frail. Lethargic. Ataxic. Inattentive. Intermittently somnolent. The patient presents moderately encephalopathic and is very limited historian of circumstances and the events. Family members are not available. Details of this presentation is accumulated from medical records, EMS triage information and query of attending medical staff. The patient's chronic hepatic encephalopathy presents with acute exacerbation this admission. Examination notes acute hypoxic respiratory failure due to combined COPD exacerbation, large burden abdominal ascites with restrictive lung disease and basilar compressive atelectasis. The patient meets SIRS/sepsis criteria at time of admission. There is no acutely obvious source for infection however the patient is at risk for spontaneous bacterial peritonitis in this setting. Investigation and treatments will be comprehensive. The patient was visited and interviewed and examined. I examined this patient and my medical decision-making was reviewed with the Resident Physician, Dr. Jose Mendez. For this encounter, I have reviewed the documentation, treatment plan, and medical decision making. I agree with the documented findings, disposition and treatment plan as described except to the extent set forth below. Cumulative laboratory and radiographic data database was reviewed, considered and discussed. The patient was last hospitalized at [facility] January 30 to February 03 with similar presenting concerns. (Acute exacerbation of chronic ulcerative pulmonary disease with acute on chronic respiratory failure and hypoxemia, HCAP, exacerbation of hepatic encephalopathy with associated lactic acidemia and significant electrolyte derangements.) At that time it was confirmed that he was noncompliant with his lactulose therapy due to diarrhea which precipitated his return to the emergency department with alteration of mental status. We cannot validate his compliance with his treatments now. However the patient has a history of medical treatment noncompliance substituting ER presentation and hospitalizations. Similarly it cannot be confirmed whether or not the patient completed recommended outpatient follow-ups with primary care physician or outpatient paracentesis appointments. Focused review of outpatient resources , reemphasis of palliative care opportunities and goals, as well as emphasis on medical treatment guideline adherence will be strongly stressed during this admission. Given the patient's presenting concerns, past medical history, clinical findings and symptoms, he is admitted at this time to undergo further evaluation and disposition. Past Med Surg Social Fam HX - Past Medical History Source: old records reviewed Psychiatric history: other - Social History Occupational status: retired, disabled Current living situation: Home, With Family Activity Level: Independent ambulation, Uses cane/walker, Bed bound, Mostly sedentary Recent Out of Country Travel Within the Last 8 Weeks: No Exposure or Possible Exposure to Illness During Travel: No All Systems PM: A 10-system review of systems was performed and is negative for pertinent findings except as documented above in the HPI. - Constitutional Vitals: Temp Pulse Resp BP Pulse Ox 97.8 F 96 22 122/84 96 02/12/17 05:00 02/12/17 05:00 02/12/17 05:11 02/12/17 05:00 02/12/17 05:11 Vital Signs Temp Pulse Resp BP Pulse Ox 02/12/17 20:01 98.2 F 110 20 122/87 96 02/12/17 11:23 97 02/12/17 11:00 97.4 F L 104 18 132/92 93 L 02/12/17 10:51 18 92 L 02/12/17 07:56 97 02/12/17 07:48 97 F L 97 18 133/91 97 02/12/17 05:11 22 96 02/12/17 05:00 97.8 F 96 17 122/84 97 02/12/17 02:06 98 02/12/17 01:46 96.9 F L 95 17 151/98 97 02/12/17 01:35 97 02/12/17 00:46 20 120/88 02/12/17 00:14 94 L 02/12/17 00:03 17 97 02/11/17 23:51 90 20 117/85 96 02/11/17 22:22 102 26 142/90 95 02/11/17 22:07 91 L 02/11/17 22:04 104 28 154/104 86 L Intake and Output 02/12/17 02/12/17 02/12/17 07:59 15:59 23:59 Intake Total 100 / 100 102 / 102 0 / 0 Output Total 425 / 425 Balance -325 / -325 102 / 102 0 / 0 Intake: IV Fluids 100 / 100 102 / 102 Maxipime 2,000 MG In 100 / 100 Dextrose 5% (Minibag+) 100 ML 100 ML @ 200 mls/ hr IVPB Q12HR [facility] Rx#: [id number] Magnesium Sulfate 1 GM In 102 / 102 Dextrose 5% 100 ML @ 100 mls/hr IVPB ONCE ONE Rx# :[id number] Oral 0 / 0 0 / 0 0 / 0 Output: Catheter 425 / 425 Other: Meal npo Percent of Meal Consumed 0% Stool Size Moderate Stool Consistency loose liquid Stool Color Brown Yellow # Bowel Movements 1 Weight 99.2 kg Blood Glucose* 118 124 126 Patient Weight 02/12/17 23:59 Weight 99.2 kg Internal Med - H&P Results - Labs CBC & Chem 7: 02/12/17 03:35 02/12/17 03:35 Labs: Short CBC 02/12/17 Range/Units 03:35 WBC 13.8 H (4.3-11.1) K/mcL Hgb 10.2 L (12.9-16.9) g/dL Hct 31.7 L (37.5-50.1) % Plt Count 115 L (140-400) K/mcL Neutrophils # 10.6 H (1.6-8.9) K/mcL BMP 02/12/17 03:35 Sodium 134 L Potassium 5.1 H Chloride 105 Carbon Dioxide 25 BUN 33 H Creatinine 0.77 Glucose 137 H Calcium 9.5 Liver Function 02/12/17 Range/Units 03:35 Total Bilirubin 2.0 H (0.2-1.2) mg/dL AST 84 H (5-34) Units/L ALT 62 H (0-55) Units/L Alkaline Phosphatase 137 H (38-126) Units/L Albumin 2.2 L (3.5-5.0) g/dL Urine 02/12/17 Range/Units 06:00 Urine Color Dark Yellow (Yellow) Urine Clarity Clear (Clear) Urine pH 6.0 (5.0-8.0) pH Units Ur Specific [place] 1.030 H (1.010-1.025) Urine Protein Trace (Neg-Trace) mg/dL Urine Glucose (UA) Normal (Normal) mg/dL Abnormal lab results WBC 13.8 K/mcL (4.3-11.1) H 02/12/17 03:35 RBC 3.44 M/mcL (4.19-5.50) L 02/12/17 03:35 Hgb 10.2 g/dL (12.9-16.9) L 02/12/17 03:35 Hct 31.7 % (37.5-50.1) L 02/12/17 03:35 RDW 17.6 % (11.5-14.5) H 02/12/17 03:35 Plt Count 115 K/mcL (140-400) L 02/12/17 03:35 Neutrophils # 10.6 K/mcL (1.6-8.9) H 02/12/17 03:35 PT 20.7 Seconds (9.4-12.1) H 02/12/17 03:35 ABG pH 7.49 pH Units (7.32-7.45) H 02/12/17 10:59 ABG pO2 59 mmHg (85-104) L 02/12/17 10:59 ABG HCO3 27.4 mEQ/L (21-27) H 02/12/17 10:59 ABG Total CO2 28.5 mEq/L (20-26) H 02/12/17 10:59 ABG O2 Saturation 92 % (95-98) L 02/12/17 10:59 ABG Base Excess 4.0 mEq/L (-2.0 to 3.0) H 02/12/17 10:59 Sodium 134 mEq/L (136-145) L 02/12/17 03:35 Potassium 5.1 mEq/L (3.5-4.5) H 02/12/17 03:35 BUN 33 mg/dL (8-26) H 02/12/17 03:35 BUN/Creatinine Ratio 43 (6-26) H 02/12/17 03:35 Glucose 137 mg/dL (70-99) H 02/12/17 03:35 POC Glucose 124 (58-89) H 02/12/17 12:03 Magnesium 1.4 mg/dL (1.6-2.6) L 02/12/17 03:35 Total Bilirubin 2.0 mg/dL (0.2-1.2) H 02/12/17 03:35 Direct Bilirubin 0.7 mg/dL (0.0-0.5) H 02/11/17 20:39 AST 84 Units/L (5-34) H 02/12/17 03:35 ALT 62 Units/L (0-55) H 02/12/17 03:35 Alkaline Phosphatase 137 Units/L (38-126) H 02/12/17 03:35 Ammonia 79 mcmol/L (18-72) H 02/11/17 20:39 Albumin 2.2 g/dL (3.5-5.0) L 02/12/17 03:35 Globulin 5.5 g/dL (2.4-3.5) H 02/12/17 03:35 Albumin/Globulin Ratio 0.4 (1.1-2.2) L 02/12/17 03:35 Ur Specific [place] 1.030 (1.010-1.025) H 02/12/17 06:00 Urine Bilirubin Small (Negative) H 02/12/17 06:00 Urine Microscopic WBC 3-5 per hpf (0-3) H 02/12/17 06:00 Ur Squamous Epith Cells Many per lpf (None-Few) H 02/12/17 06:00 Urine Bacteria Moderate per hpf (None-Few) H 02/12/17 06:00 02/12/17 10:59 ABG pH 7.49 H ABG pCO2 36 ABG pO2 59 L ABG HCO3 27.4 H ABG Total CO2 28.5 H ABG O2 Saturation 92 L ABG Base Excess 4.0 H Laboratory Last Values WBC 13.8 K/mcL (4.3-11.1) H 02/12/17 03:35 RBC 3.44 M/mcL (4.19-5.50) L 02/12/17 03:35 Hgb 10.2 g/dL (12.9-16.9) L 02/12/17 03:35 Hct 31.7 % (37.5-50.1) L 02/12/17 03:35 MCV 92.2 fL (83.0-100.0) 02/12/17 03:35 MCH 29.7 pg (28.0-33.3) 02/12/17 03:35 MCHC 32.2 g/dL (31.6-35.5) 02/12/17 03:35 RDW 17.6 % (11.5-14.5) H 02/12/17 03:35 Plt Count 115 K/mcL (140-400) L 02/12/17 03:35 MPV 10.5 fL (9.4-12.4) 02/12/17 03:35 Immature Gran % 0.9 % (0-4) 02/12/17 03:35 Seg Neutrophils % 77.1 % 02/12/17 03:35 Lymphocytes % 10.1 % 02/12/17 03:35 Monocytes % 8.6 % 02/12/17 03:35 Eosinophils % 3.2 % 02/12/17 03:35 Basophils % 0.1 % 02/12/17 03:35 Neutrophils # 10.6 K/mcL (1.6-8.9) H 02/12/17 03:35 Lymphocytes # 1.4 K/mcL (0.6-4.6) 02/12/17 03:35 Monocytes # 1.2 K/mcL (0.0-1.3) 02/12/17 03:35 Eosinophils # 0.4 K/mcL (0.0-0.6) 02/12/17 03:35 Basophils # 0.0 K/mcL (0.0-0.2) 02/12/17 03:35 PT 20.7 Seconds (9.4-12.1) H 02/12/17 03:35 INR 1.9 02/12/17 03:35 APTT 27.8 Seconds (26.0-36.0) 02/11/17 20:39 ABG pH 7.49 pH Units (7.32-7.45) H 02/12/17 10:59 ABG pCO2 36 mmHg (35-45) 02/12/17 10:59 ABG pO2 59 mmHg (85-104) L 02/12/17 10:59 ABG HCO3 27.4 mEQ/L (21-27) H 02/12/17 10:59 ABG Total CO2 28.5 mEq/L (20-26) H 02/12/17 10:59 ABG O2 Saturation 92 % (95-98) L 02/12/17 10:59 ABG Base Excess 4.0 mEq/L (-2.0 to 3.0) H 02/12/17 10:59 Liter Flow 4 L/MIN 02/12/17 10:59 Blood Gas Modality [place] 02/12/17 10:59 Sodium 134 mEq/L (136-145) L 02/12/17 03:35 Potassium 5.1 mEq/L (3.5-4.5) H 02/12/17 03:35 Chloride 105 mEq/L (98-109) 02/12/17 03:35 Carbon Dioxide 25 mEq/L (19-29) 02/12/17 03:35 BUN 33 mg/dL (8-26) H 02/12/17 03:35 Creatinine 0.77 mg/dL (0.72-1.25) 02/12/17 03:35 Est GFR ( Amer) > 60 (> 60) 02/12/17 03:35 Est GFR (Non-Af Amer) > 60 (> 60) 02/12/17 03:35 BUN/Creatinine Ratio 43 (6-26) H 02/12/17 03:35 Glucose 137 mg/dL (70-99) H 02/12/17 03:35 POC Glucose 124 (58-89) H 02/12/17 12:03 Calculated Osmolality 287 (280-300) 02/12/17 03:35 Calcium 9.5 mg/dL (8.6-10.8) 02/12/17 03:35 Phosphorus 2.7 mg/dL (2.3-4.7) 02/12/17 03:35 Magnesium 1.4 mg/dL (1.6-2.6) L 02/12/17 03:35 Total Bilirubin 2.0 mg/dL (0.2-1.2) H 02/12/17 03:35 Direct Bilirubin 0.7 mg/dL (0.0-0.5) H 02/11/17 20:39 Indirect Bilirubin 0.9 mg/dL (0.0-1.2) 02/11/17 20:39 AST 84 Units/L (5-34) H 02/12/17 03:35 ALT 62 Units/L (0-55) H 02/12/17 03:35 Alkaline Phosphatase 137 Units/L (38-126) H 02/12/17 03:35 Ammonia 79 mcmol/L (18-72) H 02/11/17 20:39 Troponin I 0.01 ng/mL (0-0.03) 02/11/17 20:39 Serum Total Protein 7.7 g/dL (6.0-8.3) 02/12/17 03:35 Albumin 2.2 g/dL (3.5-5.0) L 02/12/17 03:35 Globulin 5.5 g/dL (2.4-3.5) H 02/12/17 03:35 Albumin/Globulin Ratio 0.4 (1.1-2.2) L 02/12/17 03:35 TSH 0.791 mcIU/mL (0.350-4.840) 02/11/17 20:39 Urine Color Dark Yellow (Yellow) 02/12/17 06:00 Urine Clarity Clear (Clear) 02/12/17 06:00 Urine pH 6.0 pH Units (5.0-8.0) 02/12/17 06:00 Ur Specific [place] 1.030 (1.010-1.025) H 02/12/17 06:00 Urine Protein Trace mg/dL (Neg-Trace) 02/12/17 06:00 Urine Glucose (UA) Normal mg/dL (Normal) 02/12/17 06:00 Urine Ketones Negative mg/dL (Negative) 02/12/17 06:00 Urine Blood Negative (Negative) 02/12/17 06:00 Urine Nitrite Negative (Negative) 02/12/17 06:00 Urine Bilirubin Small (Negative) H 02/12/17 06:00 Urine Urobilinogen Normal mg/dL (Normal) 02/12/17 06:00 Ur Leukocyte Esterase Negative (Negative) 02/12/17 06:00 Urine Microscopic RBC 0-3 per hpf (0-3) 02/12/17 06:00 Urine Microscopic WBC 3-5 per hpf (0-3) H 02/12/17 06:00 Ur Squamous Epith Cells Many per lpf (None-Few) H 02/12/17 06:00 Calcium Oxalate Crystal Present 02/12/17 06:00 Urine Bacteria Moderate per hpf (None-Few) H 02/12/17 06:00 Hyaline Casts None Seen per lpf (None-Few) 02/12/17 06:00 - Impressions Chest X-Ray 02/11/17 19:10 IMPRESSION: 1. Bibasilar airspace opacities left greater than right without significant change from the previous exam. 2. COPD. D/ / Jake Elizalde MD / Jake Elizalde MD Interpreting Provider: Jake Elizalde MD X-Ray 02/12/17 10:18 IMPRESSION: NG tube extends well into the stomach. Left lower lobe retrocardiac airspace disease possible pneumonia. D/ / Marcus Etienne MD / Marcus Etienne MD Interpreting Provider: Marcus Etienne MD - Attending Attestation My signature below is to certify that this patient is under my care and that I, or the Resident Physician working with me, has had a [id number] encounter with this patient. Plan of care has been reviewed and discussed. Questions addressed. Advance care directive discussion briefly addressed. The patient does not declare any healthcare restrictions at this time. Outpatient medications schedules will be reviewed, confirmed and facilitated as appropriate. Reconciliation of home treatments including adjustments, self- sufficient and reintroduction into the treatment regimen will address necessary maintenance therapies chronic pre-existing medical conditions. Hospital course dictated by clinical findings, treatment response and potential consultative interventions. Consultative opinions will be sought as clinical circumstances justify. Initial consultative request has been submitted to Interventional Radiology for modality, guided therapeutic and diagnostic paracentesis. The patient presents at high risk for acute clinical decline and morbidity given his presenting complaints, frailty and associated comorbid conditions. Condition is serious. Prognosis is guarded. CODE STATUS is reported as FULL.
[2017-02-12 03:55] LABS: Basophils % 0.1 %; Eosinophils # 0.4 K/mcL (0.0-0.6); Eosinophils % 3.2 %; Hematocrit 31.7 % (37.5-50.1); Hemoglobin 10.2 g/dL (12.9-16.9); Immature Granulocytes % 0.9 % (0-4); Lymphocytes # 1.4 K/mcL (0.6-4.6); Lymphocytes % 10.1 %; Mean Corpuscular HGB Conc 32.2 g/dL (31.6-35.5); Mean Corpuscular Hemoglobin 29.7 pg (28.0-33.3); Mean Corpuscular Volume 92.2 fL (83.0-100.0); Mean Platelet Volume 10.5 fL (9.4-12.4); Monocytes # 1.2 K/mcL (0.0-1.3); Monocytes % 8.6 %; Neutrophils # 10.6 K/mcL (1.6-8.9); Platelet Count 115 K/mcL (140-400); Red Blood Count 3.44 M/mcL (4.19-5.50); Red Cell Distribution Width 17.6 % (11.5-14.5); Segmented Neutrophils % 77.1 %
[2017-02-12 03:56] LABS: INR 1.9; Prothrombin Time 20.7 Seconds (9.4-12.1)
[2017-02-12 04:07] LABS: Alanine Aminotransferase 62 Units/L (0-55); Albumin 2.2 g/dL (3.5-5.0); Albumin/Globulin Ratio 0.4 (1.1-2.2); Alkaline Phosphatase 137 Units/L (38-126); Aspartate Amino Transferase 84 Units/L (5-34); BUN/Creatinine Ratio 43 (6-26); Blood Urea Nitrogen 33 mg/dL (8-26); Calcium 9.5 mg/dL (8.6-10.8); Carbon Dioxide 25 mEq/L (19-29); Chloride 105 mEq/L (98-109); Globulin 5.5 g/dL (2.4-3.5); Glucose 137 mg/dL (70-99); Magnesium 1.4 mg/dL (1.6-2.6); Osmolality,Calculated 287 (280-300); Phosphorous 2.7 mg/dL (2.3-4.7); Potassium 5.1 mEq/L (3.5-4.5); Sodium 134 mEq/L (136-145); Total Protein 7.7 g/dL (6.0-8.3); eGFR For African Americans > 60 (> 60); eGFR For Non-African Americans > 60 (> 60)
[2017-02-12] MEDS: Cefepime HCl 2,000 MG in D5% in Water (Mini-Bag+) 100 ML IVPB SCH ×2 (06:12→19:50)
[2017-02-12 06:38] LABS: Bilirubin,Urine Small (Negative); Blood,Urine Negative (Negative); Clarity,Urine Clear (Clear); Color,Urine Dark Yellow (Yellow); Glucose,Urine (UA) Normal (Normal); Ketones,Urine Negative (Negative); Leukocyte Esterase,Urine Negative (Negative); Nitrite,Urine Negative (Negative); Protein,Urine Trace mg/dL (Neg-Trace); Urobilinogen,Urine Normal (Normal)
[2017-02-12 06:40] LABS: Hyaline Casts,Urine None Seen per lpf (None-Few); RBC,Urine 0-3 per hpf (0-3); Squamous Epithelial Cell,Urine Many per lpf (None-Few)
[2017-02-12 06:48] LABS: Bacteria,Urine Moderate per hpf (None-Few)
[2017-02-12] MEDS ORDERED: Magnesium Sulfate 1 GM in D5% in Water 100 ML IVPB ONE (06:48)
[2017-02-12 06:49] LABS: Calcium Oxalate Crystals,Urine Present
[2017-02-12] MEDS ORDERED: Furosemide 40 MG/4 ML VIAL IVP SCH (09:00)
[2017-02-12] MEDS ORDERED: Lactulose Oral Soln 20 GM/30 ML UDC PO SCH (09:00)
[2017-02-12] MEDS ORDERED: Lactulose Oral Soln 20 GM/30 ML UDC PO ONE ×2 (09:08→11:58)
--- NOTE | 2017-02-12 09:14 | Internal Med Progress Note ---
Date of Encounter: 02/12/17 Time of Encounter: 09:12 - Assessment and plan (1) Acute hypoxemic respiratory failure Current Visit: No Status: Acute Assessment and plan: Acute hypoxic respiratory failure likely secondary to volume overload and severe ascites in combination with acute on chronic diastolic CHF exacerbation and bilateral pleural effusions Desaturated down to the 80s Increase Lasix IV to twice a day Strict I's and O's and daily weight Order an ABG Continue oxygen therapy and consider CPAP, Consider CT scan of the chest if not improving Chest x-ray showed bibasilar airspace opacities left greater than the right without significant change from previous exam (2) Hepatic encephalopathy Current Visit: No Status: Chronic Assessment and plan: Acute hepatic encephalopathy with an ammonia level of 79 Given large dose of 60 g of lactulose and continue 20 g 4 times a day to achieve 3 bowel movements a day May continue Xifaxan (3) Cirrhosis Current Visit: No Status: Chronic Assessment and plan: Secondary to alpha 1 antitrypsin and hepatitis B Qualifiers: Hepatic cirrhosis type: other cirrhosis Qualified Code(s): K74.69 - Other cirrhosis of liver (4) Type II diabetes mellitus Current Visit: No Status: Chronic Assessment and plan: Continue insulin sliding scale Qualifiers: Diabetes mellitus complication status: with unspecified complications Diabetes mellitus custodial insulin use: 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 Qualified Code(s): E11.8 - Type 2 diabetes mellitus with unspecified complications (5) Edkqs-8-rhjrkbwcxgi deficiency Current Visit: No Status: Chronic (6) Elevated INR Current Visit: No Status: Chronic (7) Chronic hepatitis B virus infection Current Visit: No Status: Chronic (8) Ascites Current Visit: No Status: Acute Assessment and plan: Severe ascites with frequent need a paracentesis Interventional radiology has been consulted, will order a diagnostic and therapeutic paracentesis Currently on cefepime, consider switching just to ceftriaxone if SBP is diagnosed Qualifiers: Ascites type: other type Qualified Code(s): R18.8 - Other ascites (9) Ilwch-4-ggjxlylujwp deficiency Current Visit: No Status: Chronic (10) Diastolic heart failure Current Visit: No Status: Chronic Assessment and plan: Prior echocardiogram shows an ejection fraction of 55% Qualifiers: Heart failure chronicity: acute on chronic Qualified Code(s): I50.33 - Acute on chronic diastolic (congestive) heart failure - Subjective Interval history: Not for billing purposes The patient is extremely lethargic - Constitutional Vitals: Temp Pulse Resp BP Pulse Ox 97 F L 97 18 133/91 97 02/12/17 07:48 02/12/17 07:48 02/12/17 07:48 02/12/17 07:48 02/12/17 07:56 Internal Medicine: Result - Labs CBC & Chem 7: 02/12/17 03:35 02/12/17 03:35 Labs: Short CBC 02/12/17 Range/Units 03:35 WBC 13.8 H (4.3-11.1) K/mcL Hgb 10.2 L (12.9-16.9) g/dL Hct 31.7 L (37.5-50.1) % Plt Count 115 L (140-400) K/mcL Neutrophils # 10.6 H (1.6-8.9) K/mcL BMP 02/12/17 03:35 Sodium 134 L Potassium 5.1 H Chloride 105 Carbon Dioxide 25 BUN 33 H Creatinine 0.77 Glucose 137 H Calcium 9.5 Liver Function 02/12/17 Range/Units 03:35 Total Bilirubin 2.0 H (0.2-1.2) mg/dL AST 84 H (5-34) Units/L ALT 62 H (0-55) Units/L Alkaline Phosphatase 137 H (38-126) Units/L Albumin 2.2 L (3.5-5.0) g/dL Urine 02/12/17 Range/Units 06:00 Urine Color Dark Yellow (Yellow) Urine Clarity Clear (Clear) Urine pH 6.0 (5.0-8.0) pH Units Ur Specific [place] 1.030 H (1.010-1.025) Urine Protein Trace (Neg-Trace) mg/dL Urine Glucose (UA) Normal (Normal) mg/dL - ABG Interpretation ABG results: PT/INR, D-dimer PT 20.7 Seconds (9.4-12.1) H 02/12/17 03:35 - VTE Documentation of Mechanical Device: Intermittent pneumatic compression device Consult Discharge Plan - Plan
[2017-02-12] MEDS: Pantoprazole 40 MG VIAL IVP SCH (09:38)
[2017-02-12] MEDS: Insulin LISPRO 300 UNITS/3 ML VIAL SQ SCH ×4 (09:39→22:04)
[2017-02-12] MEDS: Budesonide/Formoterol 160/4.5 MDI IH SCH ×2 (10:51→21:25)
[2017-02-12 11:13] LABS: ABG HCO3 27.4 mEQ/L (21-27); ABG Oxygen Saturation 92 % (95-98); ABG PCO2 36 mmHg (35-45); ABG PH 7.49 pH Units (7.32-7.45); ABG PO2 59 mmHg (85-104); ABG TCO2 28.5 mEq/L (20-26)
[2017-02-12 11:14] LABS: Blood Gas Liter Flow 4 L/MIN
[2017-02-12] MEDS: (Rifaximin [Xifaxan] 550 MG) PO SCH ×2 (12:03→22:05)
[2017-02-12] MEDS: Lactulose Oral Soln 20 GM/30 ML UDC PO SCH ×3 (12:14→22:05)
[2017-02-12] MEDS: Sucralfate 1 GM TABLET PO SCH ×4 (12:14→22:04)
[2017-02-12] MEDS: *HR* HYDROmorphone (PF) 1 MG/ML SYRINGE IVP PRN ×2 (14:13→19:51)
--- NOTE | 2017-02-12 14:44 | Palliative - Consult Note ---
Date of Encounter: 02/12/17 Time of Encounter: 14:00 - Assessment and Plan (1) Generalized pain Current Visit: Yes Status: Acute Assessment and plan: Patient unable to take po meds at this time. Has history of not tolerating Morphine. Will order low dose Dilaudid and observe. Once alert again, he can resume Oxycodone as he takes at home. (2) Hepatic encephalopathy Current Visit: No Status: Chronic Assessment and plan: Continues with lactulose. Ammonia 79 on admission (3) Counseling regarding advanced care planning and goals of care Current Visit: Yes Status: Acute Assessment and plan: tearful at this time - attempted to address goals of care. Betina states "I know we need help at home, I know there is not much else that can be done - but I need to hear it from him". She does not want to further discuss with me. I asked if we could meet tomorrow and she stated she would be here around noon. She did not desire to change code status as of yet. She is very emotional and anxious during discussion. (4) Cirrhosis Current Visit: No Status: Chronic Qualifiers: Hepatic cirrhosis type: other cirrhosis Qualified Code(s): K74.69 - Other cirrhosis of liver (5) Ywzrx-9-hdvavmuinsg deficiency Current Visit: Yes Status: Acute Palliative-CN HPI - Data of Consult Patient: known to practice within the last 3 years Consult date: 02/12/17 Requesting Physician: Mau Sosa Primary Care Provider: Tiny Santo DO - Consult Narrative History of present illness: Mr. Zelaya is a 56 year old male well known to the palliative care team from previous admissions who has history of cirrhosis r/t Alpha -1-Antitrypsin deficiency, who was again admitted for altered mental status. Betina at bedside providing most of information as pt remains obtunded and not able to provide history. Patient was seen at [facility], which states was "total waste of time" and they did not have anything to offer him, she stated they did not do "double transplants". is upset at current time , stating that he is miserable and has not received any pain medication and didn 't have oxygen on , stating "he doesn't deserve to be treated like this". Staff unable to administer Lactulose - NG was inserted for administration, however, pt has already pulled this out. He is oriented to name only at this time and only shakes head yes/no to questions. Last paracentesis was last Tuesday and abd very distended at this time with large umbilical hernia. He is restless and appears dyspneic. CC: Mau Sosa Past Med Surg Social Fam HX - Past Medical History Medical history: arthritis, cirrhosis, COPD, coronary artery disease, DVT, diabetes, GERD, GI bleed, hepatitis, hyperlipidemia, hypertension, liver disease , osteoporosis, renal disease, other Psychiatric history: anxiety, depression - Past Surgical History Surgical History: other - Social History Smoking Status: Former smoker Smokeless Tobacco Status: No Alcohol use: none Drug use: none - Family History Mother Living Status: Hx Family Cardiac Disorders: Yes Hx Family Respiratory Disorders: Yes Father Living Status: Hx Family Cardiac Disorders: No Hx Family Respiratory Disorders: No Hx Family Cancer: No Hx Family GI Disorders: No Hx Family Endocrine Disorder: No Hx Family Neuromuscular Disorders: No Hx Family Neurologic Disorders: No Hx Family HEENT Disorders: No Hx Family Autoimmune Disorders: No Medications and Allergies Amitriptyline [Elavil] 50 mg PO HS 10/06/15 [History] Oxygen 2 - 4 l NS CONT 08/18/16 [History] Alknf-9-Sqgqlhbkar Inhibitor [Glassia] 10 mg IV QWEEK 09/18/16 [History] Albuterol Sulfate [Proair Respiclick] 2 puff IH Q4H PRN #1 aer.pow.[email or web address] 10/11/16 [ Rx] Alprazolam [Xanax 1 MG Tablet] 0.5 mg PO BID PRN #20 10/11/16 [Rx] Budesonide/Formoterol 160/4.5 [Symbicort 160/4.5] 2 puff IH BID #1 10/11/16 [Rx ] Ipratropium/Albuterol Neb [Duoneb] 3 ml IH Q4HR PRN 30 Days 10/11/16 [Rx] Oxycodone HCl 15 mg PO Q4H PRN #15 tablet 10/11/16 [Rx] Pregabalin [Lyrica] 75 mg PO BID #30 capsule 10/11/16 [Rx] Prochlorperazine Maleate [Compazine] 10 mg PO Q6HR PRN #20 10/11/16 [Rx] Rifaximin [Xifaxan] 550 mg PO BID #60 tablet 10/11/16 [Rx] Sucralfate [Carafate] 1 gm PO QID 30 Days 10/11/16 [Rx] Ranitidine HCl [Acid Executive Legal Secretary] 150 mg PO BID 10/17/16 [History] Pantoprazole Sodium [Protonix] 40 mg PO BID 11/01/16 [History] Ondansetron HCl [Zofran] 4 mg PO AD PRN 12/28/16 [History] Furosemide [Lasix] 80 mg PO DAILY 01/30/17 [History] Lactulose 30 ml PO QID 01/30/17 [History] Magnesium Oxide [Mag-Ox] 400 mg PO BID 01/30/17 [History] Metformin HCl [Metformin HCl ER] 1,000 mg PO BID 01/30/17 [History] Nadolol 20 mg PO DAILY 01/30/17 [History] Potassium Chloride [Klor-Con 10] 10 meq PO BID 01/30/17 [History] Spironolactone [Aldactone] 100 mg PO DAILY 01/30/17 [History] Allergies morphine Adverse Reaction (Verified 02/11/17 22:44) See Comments Family at bedside states "bad reaction." Patient had to receive Narcan per family at bedside. ROS unobtainable: due to mental status Palliative Care-Exam - Constitutional Vitals: Temp Pulse Resp BP Pulse Ox 97.4 F L 104 18 132/92 97 02/12/17 11:00 02/12/17 11:00 02/12/17 11:00 02/12/17 11:00 02/12/17 11:23 General appearance: Present: mild distress - Head Head Exam: Present: normal inspection, normocephalic - Eye Eye exam: Present: normal appearance, PERRL - Respiratory Additional comments: Rhonchi throughout anterior chest. RR 26. Oxygen reapplied at 2LPM. Sats 97% - Cardiovascular Cardiovascular exam: Present: +S1, +S2 - GI/Abdominal Exam GI/Abdominal exam: Present: distended, firm, tenderness - Catheter Type: Urethral (Andersen) Additional comments: Urine dark marcel in catheter tubing - Extremities Exam Additional comments: Knees cool and discolored - appears to be some mottling - Neurological Exam Additional comments: Alert, appears very somnolent, does not follow commands. CRUZ - Psychiatric Psychiatric exam: Present: flat affect - Skin Skin exam: Present: dry, warm Internal Medicine - CN: Reslt - Labs CBC & Chem 7: 02/12/17 03:35 02/12/17 03:35 - ABG Interpretation ABG results: ABG ABG pH 7.49 pH Units (7.32-7.45) H 02/12/17 10:59 ABG pCO2 36 mmHg (35-45) 02/12/17 10:59 ABG pO2 59 mmHg (85-104) L 02/12/17 10:59 ABG O2 Saturation 92 % (95-98) L 02/12/17 10:59 PT/INR, D-dimer PT 20.7 Seconds (9.4-12.1) H 02/12/17 03:35 - Impressions Impressions KUB X-Ray 02/12/17 10:18 IMPRESSION: NG tube extends well into the stomach. Left lower lobe retrocardiac airspace disease possible pneumonia. D/ / Marcus Etienne MD / Marcus Etienne MD Interpreting Provider: Marcus Etienne MD Consult Discharge Plan - Plan Referrals: Tiny Santo DO [Primary Care Provider] - Palliative Quality Palliative Quality: Screen for Code Status: NA (meeting tomorrow), Screen for Goals of Care: NA, Screen for Pain: Yes, If Pain Regimen Started, Initiate Bowel Regimen: Yes, Screen for Nausea/Vomitting: NA
[2017-02-12] MEDS: Furosemide 40 MG/4 ML VIAL IVP SCH (22:06)
[2017-02-13] MEDS: *HR* HYDROmorphone (PF) 1 MG/ML SYRINGE IVP PRN ×6 (04:16→23:18)
[2017-02-13 04:47] LABS: Hematocrit 29.7 % (37.5-50.1); Hemoglobin 9.6 g/dL (12.9-16.9); Immature Platelets 2.8 % (1.1-6.1); Mean Corpuscular HGB Conc 32.3 g/dL (31.6-35.5); Mean Corpuscular Hemoglobin 29.4 pg (28.0-33.3); Mean Corpuscular Volume 90.8 fL (83.0-100.0); Mean Platelet Volume 10.3 fL (9.4-12.4); Red Blood Count 3.27 M/mcL (4.19-5.50); Red Cell Distribution Width 17.5 % (11.5-14.5)
[2017-02-13 05:05] LABS: BUN/Creatinine Ratio 38 (6-26); Blood Urea Nitrogen 29 mg/dL (8-26); Calcium 9.8 mg/dL (8.6-10.8); Carbon Dioxide 26 mEq/L (19-29); Chloride 104 mEq/L (98-109); Glucose 128 mg/dL (70-99); Osmolality,Calculated 285 (280-300); Potassium 4.4 mEq/L (3.5-4.5); eGFR For African Americans > 60 (> 60); eGFR For Non-African Americans > 60 (> 60)
[2017-02-13 05:19] LABS: Sodium 134 mEq/L (136-145)
[2017-02-13] MEDS: Cefepime HCl 2,000 MG in D5% in Water (Mini-Bag+) 100 ML IVPB SCH (05:22)
[2017-02-13] MEDS: Budesonide/Formoterol 160/4.5 MDI IH SCH (08:03)
[2017-02-13] MEDS: Insulin LISPRO 300 UNITS/3 ML VIAL SQ SCH ×4 (08:12→20:31)
[2017-02-13] MEDS: (Rifaximin [Xifaxan] 550 MG) PO SCH ×2 (08:13→19:54)
[2017-02-13] MEDS: Lactulose Oral Soln 20 GM/30 ML UDC PO SCH ×4 (08:18→19:54)
[2017-02-13] MEDS: Sucralfate 1 GM TABLET PO SCH ×5 (08:19→19:54)
[2017-02-13] MEDS: Pantoprazole 40 MG VIAL IVP SCH (09:05)
[2017-02-13] MEDS: Furosemide 40 MG/4 ML VIAL IVP SCH ×3 (09:05→20:02)
--- NOTE | 2017-02-13 12:47 | Electrocardiograph Report ---
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
--- NOTE | 2017-02-13 13:39 | Palliative Progress Note ---
Date of Encounter: 02/13/17 Time of Encounter: 13:35 - Assessment and plan (1) Generalized pain Current Visit: Yes Status: Acute Assessment and plan: Will increase Hydromorphone to 1mg and monitor. Increase interval to every 2 hours PRN. (2) Hepatic encephalopathy Current Visit: No Status: Chronic Assessment and plan: Continues to take lactulose po. Improved (3) Counseling regarding advanced care planning and goals of care Current Visit: Yes Status: Acute Assessment and plan: 45 min discussion with pt, Betina and son Les re: goals of care. Betina very emotional and states she cannot stand to watch him suffer any longer and knows that he is dying. States she desparately needs help at home to continue to care for him and does not even desire to discuss extended care. Discussed hospice care in depth. Patient's had extensive discussion with the patient and he is agreeable to hospice care at home. Transitioned code status to DNRCC and state form completed and copies provided to . They would like to use [facility] care. They would like to have pleurx cath placed for comfort with draining ascites if possible. D/W hospitalist. INR 1.9. Possible FFP today and recheck in am. Will f/u Tuesday. (4) Cirrhosis Current Visit: No Status: Chronic Qualifiers: Hepatic cirrhosis type: other cirrhosis Qualified Code(s): K74.69 - Other cirrhosis of liver (5) Vopbv-8-mwelciiebrm deficiency Current Visit: Yes Status: Chronic - Time Spent With Patient Total time spent is greater than 50% in coordination of care (as documented) at patient's floor/unit and/or counseling patient: 25 - 35 minutes - Subjective Interval history: Patient more alert today. Can tell me his name and he is at [facility]. and son Les at bedside. Patient c/o back pain. Able to take po now. Multiple stools overnight. - Constitutional Vitals: Abnormal lab results WBC 12.6 K/mcL (4.3-11.1) H 02/13/17 04:30 RBC 3.27 M/mcL (4.19-5.50) L 02/13/17 04:30 Hgb 9.6 g/dL (12.9-16.9) L 02/13/17 04:30 Hct 29.7 % (37.5-50.1) L 02/13/17 04:30 RDW 17.5 % (11.5-14.5) H 02/13/17 04:30 Plt Count 90 K/mcL (140-400) L 02/13/17 04:30 Neutrophils # 10.6 K/mcL (1.6-8.9) H 02/12/17 03:35 PT 20.7 Seconds (9.4-12.1) H 02/12/17 03:35 ABG pH 7.49 pH Units (7.32-7.45) H 02/12/17 10:59 ABG pO2 59 mmHg (85-104) L 02/12/17 10:59 ABG HCO3 27.4 mEQ/L (21-27) H 02/12/17 10:59 ABG Total CO2 28.5 mEq/L (20-26) H 02/12/17 10:59 ABG O2 Saturation 92 % (95-98) L 02/12/17 10:59 ABG Base Excess 4.0 mEq/L (-2.0 to 3.0) H 02/12/17 10:59 Sodium 134 mEq/L (136-145) L 02/13/17 04:30 BUN 29 mg/dL (8-26) H 02/13/17 04:30 BUN/Creatinine Ratio 38 (6-26) H 02/13/17 04:30 Glucose 128 mg/dL (70-99) H 02/13/17 04:30 POC Glucose 141 (58-89) H 02/12/17 17:20 Magnesium 1.4 mg/dL (1.6-2.6) L 02/12/17 03:35 Total Bilirubin 2.0 mg/dL (0.2-1.2) H 02/12/17 03:35 Direct Bilirubin 0.7 mg/dL (0.0-0.5) H 02/11/17 20:39 AST 84 Units/L (5-34) H 02/12/17 03:35 ALT 62 Units/L (0-55) H 02/12/17 03:35 Alkaline Phosphatase 137 Units/L (38-126) H 02/12/17 03:35 Ammonia 79 mcmol/L (18-72) H 02/11/17 20:39 Albumin 2.2 g/dL (3.5-5.0) L 02/12/17 03:35 Globulin 5.5 g/dL (2.4-3.5) H 02/12/17 03:35 Albumin/Globulin Ratio 0.4 (1.1-2.2) L 02/12/17 03:35 Ur Specific [place] 1.030 (1.010-1.025) H 02/12/17 06:00 Urine Bilirubin Small (Negative) H 02/12/17 06:00 Urine Microscopic WBC 3-5 per hpf (0-3) H 02/12/17 06:00 Ur Squamous Epith Cells Many per lpf (None-Few) H 02/12/17 06:00 Urine Bacteria Moderate per hpf (None-Few) H 02/12/17 06:00 General appearance: Present: mild distress - Respiratory Additional comments: Rhonchi noted throughout all lung rai. Productive cough noted - Cardiovascular Cardiovascular exam: Present: +S1, +S2 - GI/Abdominal GI/Abdominal exam: Present: diminished bowel sounds, distended, firm Additional comments: Large umbilical hernia - Additional comments: Andersen with marcel colored urine - Extremities Exam Extremities exam: Present: normal capillary refill, normal inspection - Neurological Exam Neurological exam: Present: alert Additional comments: Oriented to name and place. Generalized weakness - Psychiatric Psychiatric exam: Present: flat affect - Skin Skin exam: Present: dry, pallor, warm Palliative Quality Palliative Quality: Screen for Code Status: NA (meeting tomorrow), Screen for Goals of Care: NA, Screen for Pain: Yes, If Pain Regimen Started, Initiate Bowel Regimen: Yes, Screen for Nausea/Vomitting: NA Code Status: 02/13/17 13:14 DNR [Resuscitation Status: Active] [RES] Routine Comment: Resuscitation Status: DNR-Comfort Care - Labs CBC & Chem 7: 02/13/17 04:30 02/13/17 04:30 Labs: Laboratory Results - last 24 hr 02/12/17 02/12/17 02/13/17 12:03 17:20 04:30 WBC 12.6 H RBC 3.27 L Hgb 9.6 L Hct 29.7 L MCV 90.8 MCH 29.4 MCHC 32.3 RDW 17.5 H Plt Count 90 L MPV 10.3 Immature Plt Fraction 2.8 Sodium Potassium Chloride Carbon Dioxide BUN Creatinine Est GFR ( Amer) Est GFR (Non-Af Amer) BUN/Creatinine Ratio Glucose POC Glucose 124 H 141 H Calculated Osmolality Calcium 02/13/17 04:30 WBC RBC Hgb Hct MCV MCH MCHC RDW Plt Count MPV Immature Plt Fraction Sodium 134 L Potassium 4.4 Chloride 104 Carbon Dioxide 26 BUN 29 H Creatinine 0.76 Est GFR ( Amer) > 60 Est GFR (Non-Af Amer) > 60 BUN/Creatinine Ratio 38 H Glucose 128 H POC Glucose Calculated Osmolality 285 Calcium 9.8 - ABG Interpretation ABG results: ABG ABG pH 7.49 pH Units (7.32-7.45) H 02/12/17 10:59 ABG pCO2 36 mmHg (35-45) 02/12/17 10:59 ABG pO2 59 mmHg (85-104) L 02/12/17 10:59 ABG O2 Saturation 92 % (95-98) L 02/12/17 10:59 PT/INR, D-dimer PT 20.7 Seconds (9.4-12.1) H 02/12/17 03:35 Consult Discharge Plan - Plan Referrals: Tiny Santo DO [Primary Care Provider] -
--- NOTE | 2017-02-13 13:57 | Internal Med Progress Note ---
Date of Encounter: 02/13/17 Time of Encounter: 13:55 - Assessment and plan (1) Acute hypoxemic respiratory failure Current Visit: No Status: Acute Assessment and plan: Acute hypoxic respiratory failure likely secondary to volume overload and severe ascites in combination with acute on chronic diastolic CHF exacerbation and bilateral pleural effusions Desaturated down to the 80s Increase Lasix IV to 3 times a day PH 7.49 PCO2 36 and PO2 59 Strict I's and O's and daily weight Continue oxygen therapy and consider CPAP Chest x-ray showed bibasilar airspace opacities left greater than the right without significant change from previous exam (2) Hepatic encephalopathy Current Visit: No Status: Chronic Assessment and plan: Acute hepatic encephalopathy with an ammonia level of 79 Was Given large dose of 60 g of lactulose on 02/12/2017 continue 20 g 4 times a day to achieve 3 bowel movements a day May continue Xifaxan The patient is the patient's family have decided to pursue comfort measures only. He is a DNR CC, will require recurrent draining with a Pleurx catheter. We give fresh frozen plasma as the patient's INR is 1.9 in consultative interventional radiology service to place a catheter in the morning, also performed at therapeutic and diagnostic paracenteses. 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 insulin use: unspecified correction insulin use status Qualified Code(s): E11.8 - Type 2 diabetes mellitus with unspecified complications (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 (6) Elevated INR Current Visit: No Status: Chronic (7) Chronic hepatitis B virus infection Current Visit: Yes Status: Chronic (8) Ascites Current Visit: No Status: Acute Assessment and plan: Severe ascites with frequent need a paracentesis Interventional radiology has been consulted, will order a diagnostic and therapeutic paracentesis Discontinue cefepime day 2 Start Rocephin, may continue antibiotics as outpatient if SBP is diagnosed Qualifiers: Ascites type: other type Qualified Code(s): R18.8 - Other ascites (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 (10) Diastolic heart failure Current Visit: No Status: Chronic Assessment and plan: Prior echocardiogram shows an ejection fraction of 55% Qualifiers: Heart failure chronicity: acute on chronic Qualified Code(s): I50.33 - Acute on chronic diastolic (congestive) heart failure - Time Spent With Patient Greater than 35 minutes - Subjective Interval history: The patient is very lethargic, unable to complete review of systems, complains of abdominal pain - Constitutional Vitals: Temp Pulse Resp BP Pulse Ox 97.0 F L 92 12 116/83 94 L 02/13/17 08:11 02/13/17 08:11 02/13/17 08:11 02/13/17 08:11 02/13/17 08:11 General appearance: Present: A&O X 1 - Head Head exam: Present: atraumatic, normocephalic - Eye Eye exam: Present: PERRL, conjuntiva pink, sclera anicteric Pupils: Present: PERRL - Neck Neck exam general surgery: Present: supple, trachea midline. Absent: lymphadenopathy - Respiratory Respiratory exam: Present: CTAB, rales (Bibasilar coarse crackles and upper airway congestion). Absent: accessory muscle use, rhonchi, wheezes - Cardiovascular Cardiovascular exam: Present: RRR, +S1, +S2. Absent: diastolic murmur, gallop, rubs, systolic murmur - GI/Abdominal GI/Abdominal exam: Present: diminished bowel sounds, distended (Severe ascites) , soft, no peritoneal signs. Absent: normal bowel sounds, tenderness - Extremities Exam Extremities exam: Present: pedal edema (+2 pitting edema in both lower extremities, Andersen catheter in place), warm, radial pulses palpable and symetrical. Absent: calf tenderness, cyanotic - Neurological Exam Neurological exam: Present: CN II-XII intact, no focal deficits. Absent: oriented X3, pronater drift, facial droop, speech deficit - Skin Skin exam: Present: dry, intact Internal Medicine: Result - Labs CBC & Chem 7: 02/13/17 04:30 02/13/17 04:30 Labs: Short CBC 02/13/17 Range/Units 04:30 WBC 12.6 H (4.3-11.1) K/mcL Hgb 9.6 L (12.9-16.9) g/dL Hct 29.7 L (37.5-50.1) % Plt Count 90 L (140-400) K/mcL BMP 02/13/17 04:30 Sodium 134 L Potassium 4.4 Chloride 104 Carbon Dioxide 26 BUN 29 H Creatinine 0.76 Glucose 128 H Calcium 9.8 - ABG Interpretation ABG results: ABG ABG pH 7.49 pH Units (7.32-7.45) H 02/12/17 10:59 ABG pCO2 36 mmHg (35-45) 02/12/17 10:59 ABG pO2 59 mmHg (85-104) L 02/12/17 10:59 ABG O2 Saturation 92 % (95-98) L 02/12/17 10:59 PT/INR, D-dimer PT 20.7 Seconds (9.4-12.1) H 02/12/17 03:35 - VTE Documentation of Mechanical Device: Intermittent pneumatic compression device Consult Discharge Plan - Plan Referrals: Tiny Santo DO [Primary Care Provider] -
[2017-02-13] MEDS: Ipratropium/Albuterol Neb 3 ML IH SCH ×3 (14:50→20:46)
[2017-02-13] MEDS ORDERED: 0.9 % Sodium Chloride 250 ML ONE (17:59)
[2017-02-13] MEDS: Budesonide Neb 0.5 MG/2 ML IH SCH (20:46)
[2017-02-14] MEDS: Ipratropium/Albuterol Neb 3 ML IH SCH ×6 (00:34→20:17)
[2017-02-14 05:29] LABS: INR 1.9; Prothrombin Time 20.5 Seconds (9.4-12.1)
[2017-02-14 05:41] LABS: BUN/Creatinine Ratio 33 (6-26); Blood Urea Nitrogen 23 mg/dL (8-26); Calcium 9.2 mg/dL (8.6-10.8); Carbon Dioxide 29 mEq/L (19-29); Chloride 99 mEq/L (98-109); Glucose 113 mg/dL (70-99); Osmolality,Calculated 280 (280-300); Potassium 3.9 mEq/L (3.5-4.5); Sodium 133 mEq/L (136-145); eGFR For African Americans > 60 (> 60); eGFR For Non-African Americans > 60 (> 60)
[2017-02-14] MEDS: Budesonide Neb 0.5 MG/2 ML IH SCH ×2 (07:30→21:51)
[2017-02-14] MEDS: Insulin LISPRO 300 UNITS/3 ML VIAL SQ SCH ×4 (08:43→20:53)
[2017-02-14] MEDS: Sucralfate 1 GM TABLET PO SCH ×4 (08:43→20:53)
[2017-02-14] MEDS: (Rifaximin [Xifaxan] 550 MG) PO SCH ×2 (08:44→20:53)
[2017-02-14] MEDS: Lactulose Oral Soln 20 GM/30 ML UDC PO SCH ×4 (08:44→20:52)
[2017-02-14] MEDS: Furosemide 40 MG/4 ML VIAL IVP SCH ×3 (08:49→20:52)
[2017-02-14] MEDS: Pantoprazole 40 MG VIAL IVP SCH (08:50)
[2017-02-14] MEDS ORDERED: 0.9 % Sodium Chloride 250 ML ONE (09:16)
[2017-02-14] MEDS: *HR* HYDROmorphone (PF) 1 MG/ML SYRINGE IVP PRN ×3 (09:19→20:53)
[2017-02-14 13:47] LABS: INR 1.7; Prothrombin Time 18.5 Seconds (9.4-12.1)
[2017-02-14] MEDS: *HR* OxyCODONE Immed Rel 15 MG TABLET PO PRN ×2 (14:44→18:47)
--- NOTE | 2017-02-14 15:17 | Palliative Progress Note ---
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 Zelaya is planning on discharging home with hospice care. Plans for placement of abdominal Pleurx catheter for home drainage of ascites once INR is less than 1.5. Treatment of elevated INR per hospitalist. Hospice care referral was made and DME delivery pending. Discussed medication management with the patient and his . The palliative care team will continue to follow , continue current course (4) Generalized pain Current Visit: Yes Status: Acute Assessment and plan: Mr. Zelaya has suffered from chronic pain for many years. He has followed with the painter structural steel as an outpatient. Currently he is taking hydromorphone 1 mg every 2 hours as needed for pain. He is also use 1 dose of oxycodone in the past. His does report poor pain control at home with his current dose of oxycodone. We discussed the option of placing a fentanyl patch , however, the patient is extremely has attended about that given the family history of adverse events with fentanyl. At this time, we will continue with pain management utilizing oxycodone. He does have an adverse reaction listed to morphine. His adverse reaction is increasing in somnolence. Discussed management of symptoms at home with hospice care in the event that the patient is no longer able to swallow his oxycodone pills. Will likely transition to oral morphine concentrate at that time. Ensured the patient's that hospice will continue to support them. - Time Spent With Patient Total time spent is greater than 50% in coordination of care (as documented) at patient's floor/unit and/or counseling patient: - Subjective Interval history: Mr. Zelaya is sitting up in bed, reports feeling "so-so". He reports pain is tolerable at this time with the use of oxycodone and hydromorphone. He is able to drink his nutritional supplements with the assistance of his . - Constitutional Vitals: Abnormal lab results WBC 12.6 K/mcL (4.3-11.1) H 02/13/17 04:30 RBC 3.27 M/mcL (4.19-5.50) L 02/13/17 04:30 Hgb 9.6 g/dL (12.9-16.9) L 02/13/17 04:30 Hct 29.7 % (37.5-50.1) L 02/13/17 04:30 RDW 17.5 % (11.5-14.5) H 02/13/17 04:30 Plt Count 90 K/mcL (140-400) L 02/13/17 04:30 Neutrophils # 10.6 K/mcL (1.6-8.9) H 02/12/17 03:35 PT 18.5 Seconds (9.4-12.1) H 02/14/17 13:15 ABG pH 7.49 pH Units (7.32-7.45) H 02/12/17 10:59 ABG pO2 59 mmHg (85-104) L 02/12/17 10:59 ABG HCO3 27.4 mEQ/L (21-27) H 02/12/17 10:59 ABG Total CO2 28.5 mEq/L (20-26) H 02/12/17 10:59 ABG O2 Saturation 92 % (95-98) L 02/12/17 10:59 ABG Base Excess 4.0 mEq/L (-2.0 to 3.0) H 02/12/17 10:59 Sodium 133 mEq/L (136-145) L 02/14/17 05:03 Creatinine 0.69 mg/dL (0.72-1.25) L 02/14/17 05:03 BUN/Creatinine Ratio 33 (6-26) H 02/14/17 05:03 Glucose 113 mg/dL (70-99) H 02/14/17 05:03 POC Glucose 92 (58-89) H 02/14/17 07:51 Magnesium 1.4 mg/dL (1.6-2.6) L 02/12/17 03:35 Total Bilirubin 2.0 mg/dL (0.2-1.2) H 02/12/17 03:35 Direct Bilirubin 0.7 mg/dL (0.0-0.5) H 02/11/17 20:39 AST 84 Units/L (5-34) H 02/12/17 03:35 ALT 62 Units/L (0-55) H 02/12/17 03:35 Alkaline Phosphatase 137 Units/L (38-126) H 02/12/17 03:35 Ammonia 79 mcmol/L (18-72) H 02/11/17 20:39 Albumin 2.2 g/dL (3.5-5.0) L 02/12/17 03:35 Globulin 5.5 g/dL (2.4-3.5) H 02/12/17 03:35 Albumin/Globulin Ratio 0.4 (1.1-2.2) L 02/12/17 03:35 Ur Specific [place] 1.030 (1.010-1.025) H 02/12/17 06:00 Urine Bilirubin Small (Negative) H 02/12/17 06:00 Urine Microscopic WBC 3-5 per hpf (0-3) H 02/12/17 06:00 Ur Squamous Epith Cells Many per lpf (None-Few) H 02/12/17 06:00 Urine Bacteria Moderate per hpf (None-Few) H 02/12/17 06:00 General appearance: Present: cooperative Exam: 56-year-old male patient appearing chronically ill, older than stated age - Respiratory Respiratory exam: Present: rhonchi. Absent: accessory muscle use, decreased breath sounds, respiratory distress - Cardiovascular Cardiovascular exam: Present: RRR, tachycardia - GI/Abdominal GI/Abdominal exam: Present: distended, soft. Absent: tenderness - Expanded Abdominal Exam GI/Abdominal exam: Present: ascites - Extremities Exam Extremities exam: Present: normal inspection - Neurological Exam Neurological exam: Present: alert, no focal deficits, strengths equal and symetr throughout (Global weakness) - Psychiatric Psychiatric exam: Present: flat affect. Absent: agitated, anxious - Skin Skin exam: Present: dry, warm Palliative Quality Palliative Quality: Screen for Code Status: Yes, Screen for Goals of Care: Yes, Screen for Pain: Yes, If Pain Regimen Started, Initiate Bowel Regimen: Yes, Screen for Nausea/Vomitting: NA Code Status: 02/13/17 13:14 DNR [Resuscitation Status: Active] [RES] Routine Comment: Resuscitation Status: DNR-Comfort Care - Labs CBC & Chem 7: 02/13/17 04:30 02/14/17 05:03 Labs: Laboratory Results - last 24 hr 02/12/17 02/13/17 02/13/17 20:05 07:47 14:40 PT INR Sodium Potassium Chloride Carbon Dioxide BUN Creatinine Est GFR ( Amer) Est GFR (Non-Af Amer) BUN/Creatinine Ratio Glucose POC Glucose 126 H 127 H Calculated Osmolality Calcium Blood Type A POSITIVE Antibody Screen NEGATIVE 02/13/17 02/13/17 02/14/17 16:22 20:17 05:03 PT 20.5 H INR 1.9 Sodium Potassium Chloride Carbon Dioxide BUN Creatinine Est GFR ( Amer) Est GFR (Non-Af Amer) BUN/Creatinine Ratio Glucose POC Glucose 225 H 95 H Calculated Osmolality Calcium Blood Type Antibody Screen 02/14/17 02/14/17 02/14/17 05:03 07:51 13:15 PT 18.5 H INR 1.7 Sodium 133 L Potassium 3.9 Chloride 99 Carbon Dioxide 29 BUN 23 Creatinine 0.69 L Est GFR ( Amer) > 60 Est GFR (Non-Af Amer) > 60 BUN/Creatinine Ratio 33 H Glucose 113 H POC Glucose 92 H Calculated Osmolality 280 Calcium 9.2 Blood Type Antibody Screen - ABG Interpretation ABG results: ABG ABG pH 7.49 pH Units (7.32-7.45) H 02/12/17 10:59 ABG pCO2 36 mmHg (35-45) 02/12/17 10:59 ABG pO2 59 mmHg (85-104) L 02/12/17 10:59 ABG O2 Saturation 92 % (95-98) L 02/12/17 10:59 PT/INR, D-dimer PT 18.5 Seconds (9.4-12.1) H 02/14/17 13:15 Consult Discharge Plan - Plan Referrals: Tiny Santo DO [Primary Care Provider] -
--- NOTE | 2017-02-14 15:20 | Internal Med Progress Note ---
Date of Encounter: 02/14/17 Time of Encounter: 15:17 - Assessment and plan (1) Acute hypoxemic respiratory failure Current Visit: No Status: Acute Assessment and plan: Acute hypoxic respiratory failure likely secondary to volume overload and severe ascites in combination with acute on chronic diastolic CHF exacerbation and bilateral pleural effusions Desaturated down to the 80s Increased Lasix IV to 3 times a day PH 7.49 PCO2 36 and PO2 59 Strict I's and O's and daily weight Continue oxygen therapy and consider CPAP Chest x-ray showed bibasilar airspace opacities left greater than the right without significant change from previous exam (2) Hepatic encephalopathy Current Visit: No Status: Chronic Assessment and plan: Acute hepatic encephalopathy with an ammonia level of 79 Was Given large dose of 60 g of lactulose on 02/12/2017 continue 20 g 4 times a day to achieve 3 bowel movements a day May continue Xifaxan The patient is the patient's family have decided to pursue comfort measures only. He is a DNR CC, will require recurrent draining with a Pleurx catheter. We gave fresh frozen plasma as the patient's INR was 1.9 , still was 1.7 after givin 3 units of FFP, will give vit K today and more FFP interventional radiology may place a pleurex catheter in the morning if INR<1.5 , also needs a therapeutic and diagnostic paracentesis. 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 (6) Elevated INR Current Visit: No Status: Chronic (7) Chronic hepatitis B virus infection Current Visit: Yes Status: Chronic (8) Ascites Current Visit: No Status: Acute Assessment and plan: Severe ascites with frequent need a paracentesis Interventional radiology has been consulted, will order a diagnostic and therapeutic paracentesis Discontinued cefepime day 2 Started Rocephin day 2, may continue antibiotics as outpatient if SBP is diagnosed Qualifiers: Qualified Code(s): R18.8 - Other ascites (9) Dwdnt-3-rxhtrwdqpfr deficiency Current Visit: No Status: Chronic (10) Diastolic heart failure Current Visit: No Status: Chronic Assessment and plan: Prior echocardiogram shows an ejection fraction of 55% Qualifiers: Qualified Code(s): I50.33 - Acute on chronic diastolic (congestive) heart failure - Time Spent With Patient Greater than 35 minutes - Subjective Interval history: The patient is less lethargic but unable to complete review of systems, complains of abdominal pain - Constitutional Vitals: Temp Pulse Resp BP Pulse Ox 97.8 F 100 16 108/61 95 02/14/17 13:11 02/14/17 13:11 02/14/17 13:11 02/14/17 13:11 02/14/17 13:11 General appearance: Present: A&O X 1 - Head Head exam: Present: atraumatic, normocephalic - Eye Eye exam: Present: PERRL, conjuntiva pink, sclera anicteric Pupils: Present: PERRL - Neck Neck exam general surgery: Present: supple, trachea midline. Absent: lymphadenopathy - Respiratory Respiratory exam: Present: CTAB, rales (bilateral coarse crackles). Absent: accessory muscle use, rhonchi, wheezes - Cardiovascular Cardiovascular exam: Present: RRR, +S1, +S2. Absent: diastolic murmur, gallop, rubs, systolic murmur - GI/Abdominal GI/Abdominal exam: Present: distended (severe ascites), normal bowel sounds, soft, no peritoneal signs. Absent: tenderness - Extremities Exam Extremities exam: Present: pedal edema (+ 2 pitting edema in both lower extremities), warm, radial pulses palpable and symetrical. Absent: calf tenderness, cyanotic - Neurological Exam Neurological exam: Present: CN II-XII intact, no focal deficits. Absent: oriented X3, pronater drift, facial droop, speech deficit - Skin Skin exam: Present: dry. Absent: intact Internal Medicine: Result - Labs CBC & Chem 7: 02/13/17 04:30 02/14/17 05:03 Labs: BMP 02/14/17 05:03 Sodium 133 L Potassium 3.9 Chloride 99 Carbon Dioxide 29 BUN 23 Creatinine 0.69 L Glucose 113 H Calcium 9.2 - ABG Interpretation ABG results: ABG ABG pH 7.49 pH Units (7.32-7.45) H 02/12/17 10:59 ABG pCO2 36 mmHg (35-45) 02/12/17 10:59 ABG pO2 59 mmHg (85-104) L 02/12/17 10:59 ABG O2 Saturation 92 % (95-98) L 02/12/17 10:59 PT/INR, D-dimer PT 18.5 Seconds (9.4-12.1) H 02/14/17 13:15 - VTE Documentation of Mechanical Device: Intermittent pneumatic compression device Consult Discharge Plan - Plan Referrals: Tiny Santo DO [Primary Care Provider] -
[2017-02-14] MEDS ORDERED: Lactulose Oral Soln 20 GM/30 ML UDC PO ONE (17:00)
[2017-02-15] MEDS: Ipratropium/Albuterol Neb 3 ML IH SCH ×6 (00:44→16:39)
[2017-02-15] MEDS: *HR* OxyCODONE Immed Rel 15 MG TABLET PO PRN ×3 (00:53→15:21)
[2017-02-15] MEDS ORDERED: 0.9 % Sodium Chloride 250 ML ONE ×3 (01:05→07:48)
[2017-02-15 06:54] LABS: INR 1.6; Prothrombin Time 17.8 Seconds (9.4-12.1)
[2017-02-15 06:56] LABS: Activated Partial Thrombo Time 28.1 Seconds (26.0-36.0)
[2017-02-15 07:07] LABS: Alanine Aminotransferase 40 Units/L (0-55); Albumin 2.2 g/dL (3.5-5.0); Albumin/Globulin Ratio 0.5 (1.1-2.2); Alkaline Phosphatase 113 Units/L (38-126); Aspartate Amino Transferase 48 Units/L (5-34); BUN/Creatinine Ratio 28 (6-26); Bilirubin,Total 1.7 mg/dL (0.2-1.2); Blood Urea Nitrogen 21 mg/dL (8-26); Calcium 9.1 mg/dL (8.6-10.8); Carbon Dioxide 31 mEq/L (19-29); Chloride 97 mEq/L (98-109); Globulin 4.3 g/dL (2.4-3.5); Glucose 133 mg/dL (70-99); Osmolality,Calculated 279 (280-300); Potassium 4.1 mEq/L (3.5-4.5); Sodium 132 mEq/L (136-145); Total Protein 6.5 g/dL (6.0-8.3); eGFR For African Americans > 60 (> 60); eGFR For Non-African Americans > 60 (> 60)
[2017-02-15] MEDS: Budesonide Neb 0.5 MG/2 ML IH SCH (07:57)
--- NOTE | 2017-02-15 09:28 | Palliative Progress Note ---
Date of Encounter: 02/15/17 Time of Encounter: 09:24 - Assessment and plan (1) Hepatic encephalopathy Current Visit: Yes Status: Chronic Assessment and plan: Lactulose 20 mg 4 times a day scheduled. He missed 2 doses of lactulose yesterday due to NPO status for procedure. Discussed case with nurse. He will remain NPO this morning until his abdominal PleurX catheter is placed this morning. Discussed case with IR. (2) Goals of care, counseling/discussion Current Visit: No Status: Chronic Assessment and plan: Planning for discharge home with hospice once the abdominal pleurX catheter is placed. Referral updated with [facility] per family request. Discussed case with Kayleigh Cohen-Hospice search marketing coordinator. DNR state form on file. Rx for home medications completed: Oxycodone, Lyrica, Alprazolam, Liquid lorazepam and hydromorphone (if unable to swallow oral tablets). Faxed to pharmacy. (3) Generalized pain Current Visit: Yes Status: Acute Assessment and plan: Mr. Zelaya has suffered from chronic pain for many years. 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 Currently he is taking hydromorphone 1 mg every 2 hours as needed for pain and has used 3 doses in the past 24 hours. He is also use 1 dose of oxycodone in the past 24 hours. Home Rx completed for oxycodone, lyrica, alprazolam, and lorazepam. Discussed pain control in the event that he cannot swallow. Will use oral liquid hydromorphone. Will follow up. (4) Awbms-5-maymwpotlhk deficiency Current Visit: No Status: Chronic - Time Spent With Patient Total time spent is greater than 50% in coordination of care (as documented) at patient's floor/unit and/or counseling patient: - Subjective Interval history: Mr. Zelaya is sitting up in bed, more lethargic this morning. He missed 2 doses of lactulose yesterday due to NPO status and his last BM was yesterday afternoon. He reports pain is tolerable at this time with the use of oxycodone and hydromorphone. - Constitutional Vitals: Abnormal lab results WBC 12.6 K/mcL (4.3-11.1) H 02/13/17 04:30 RBC 3.27 M/mcL (4.19-5.50) L 02/13/17 04:30 Hgb 9.6 g/dL (12.9-16.9) L 02/13/17 04:30 Hct 29.7 % (37.5-50.1) L 02/13/17 04:30 RDW 17.5 % (11.5-14.5) H 02/13/17 04:30 Plt Count 90 K/mcL (140-400) L 02/13/17 04:30 Neutrophils # 10.6 K/mcL (1.6-8.9) H 02/12/17 03:35 PT 17.8 Seconds (9.4-12.1) H 02/15/17 06:35 ABG pH 7.49 pH Units (7.32-7.45) H 02/12/17 10:59 ABG pO2 59 mmHg (85-104) L 02/12/17 10:59 ABG HCO3 27.4 mEQ/L (21-27) H 02/12/17 10:59 ABG Total CO2 28.5 mEq/L (20-26) H 02/12/17 10:59 ABG O2 Saturation 92 % (95-98) L 02/12/17 10:59 ABG Base Excess 4.0 mEq/L (-2.0 to 3.0) H 02/12/17 10:59 Sodium 132 mEq/L (136-145) L 02/15/17 06:35 Chloride 97 mEq/L (98-109) L 02/15/17 06:35 Carbon Dioxide 31 mEq/L (19-29) H 02/15/17 06:35 BUN/Creatinine Ratio 28 (6-26) H 02/15/17 06:35 Glucose 133 mg/dL (70-99) H 02/15/17 06:35 POC Glucose 139 (58-89) H 02/15/17 07:12 Calculated Osmolality 279 (280-300) L 02/15/17 06:35 Magnesium 1.4 mg/dL (1.6-2.6) L 02/12/17 03:35 Total Bilirubin 1.7 mg/dL (0.2-1.2) H 02/15/17 06:35 Direct Bilirubin 0.7 mg/dL (0.0-0.5) H 02/11/17 20:39 AST 48 Units/L (5-34) H 02/15/17 06:35 Ammonia 79 mcmol/L (18-72) H 02/11/17 20:39 Albumin 2.2 g/dL (3.5-5.0) L 02/15/17 06:35 Globulin 4.3 g/dL (2.4-3.5) H 02/15/17 06:35 Albumin/Globulin Ratio 0.5 (1.1-2.2) L 02/15/17 06:35 Ur Specific [place] 1.030 (1.010-1.025) H 02/12/17 06:00 Urine Bilirubin Small (Negative) H 02/12/17 06:00 Urine Microscopic WBC 3-5 per hpf (0-3) H 02/12/17 06:00 Ur Squamous Epith Cells Many per lpf (None-Few) H 02/12/17 06:00 Urine Bacteria Moderate per hpf (None-Few) H 02/12/17 06:00 General appearance: Present: no acute distress Exam: 56 year old male appearing chronically ill and older than stated age. He is lethargic with worsening ascites. - ENT ENT exam: Present: mucous membranes dry - Respiratory Respiratory exam: Present: decreased breath sounds. Absent: accessory muscle use, respiratory distress, wheezes, tachypnea - Cardiovascular Cardiovascular exam: Present: RRR. Absent: tachycardia - GI/Abdominal GI/Abdominal exam: Present: distended, firm, normal bowel sounds - Expanded Abdominal Exam GI/Abdominal exam: Present: ascites - Extremities Exam Extremities exam: Present: normal inspection - Neurological Exam Neurological exam: Present: no focal deficits, strengths equal and symetr throughout. Absent: alert (lethargic, but opens eyes and follows some commands) - Psychiatric Psychiatric exam: Present: depressed, flat affect. Absent: agitated, anxious - Skin Skin exam: Present: dry, warm Palliative Quality Palliative Quality: Screen for Code Status: Yes, Screen for Goals of Care: Yes, Screen for Pain: Yes, If Pain Regimen Started, Initiate Bowel Regimen: Yes, Screen for Nausea/Vomitting: NA Code Status: 02/13/17 13:14 DNR [Resuscitation Status: Active] [RES] Routine Comment: Resuscitation Status: DNR-Comfort Care - Labs CBC & Chem 7: 02/13/17 04:30 02/15/17 06:35 Labs: Laboratory Results - last 24 hr 02/13/17 02/13/17 02/14/17 11:31 14:40 07:51 PT INR APTT Sodium Potassium Chloride Carbon Dioxide BUN Creatinine Est GFR ( Amer) Est GFR (Non-Af Amer) BUN/Creatinine Ratio Glucose POC Glucose 155 H 92 H Calculated Osmolality Calcium Total Bilirubin AST ALT Alkaline Phosphatase Serum Total Protein Albumin Globulin Albumin/Globulin Ratio Blood Type A POSITIVE Antibody Screen NEGATIVE 02/14/17 02/14/17 02/14/17 11:35 13:15 17:06 PT 18.5 H INR 1.7 APTT Sodium Potassium Chloride Carbon Dioxide BUN Creatinine Est GFR ( Amer) Est GFR (Non-Af Amer) BUN/Creatinine Ratio Glucose POC Glucose 124 H 252 H Calculated Osmolality Calcium Total Bilirubin AST ALT Alkaline Phosphatase Serum Total Protein Albumin Globulin Albumin/Globulin Ratio Blood Type Antibody Screen 02/15/17 02/15/17 02/15/17 06:35 06:35 07:12 PT 17.8 H INR 1.6 APTT 28.1 Sodium 132 L Potassium 4.1 Chloride 97 L Carbon Dioxide 31 H BUN 21 Creatinine 0.76 Est GFR ( Amer) > 60 Est GFR (Non-Af Amer) > 60 BUN/Creatinine Ratio 28 H Glucose 133 H POC Glucose 139 H Calculated Osmolality 279 L Calcium 9.1 Total Bilirubin 1.7 H AST 48 H ALT 40 Alkaline Phosphatase 113 Serum Total Protein 6.5 Albumin 2.2 L Globulin 4.3 H Albumin/Globulin Ratio 0.5 L Blood Type Antibody Screen - ABG Interpretation ABG results: ABG ABG pH 7.49 pH Units (7.32-7.45) H 02/12/17 10:59 ABG pCO2 36 mmHg (35-45) 02/12/17 10:59 ABG pO2 59 mmHg (85-104) L 02/12/17 10:59 ABG O2 Saturation 92 % (95-98) L 02/12/17 10:59 PT/INR, D-dimer PT 17.8 Seconds (9.4-12.1) H 02/15/17 06:35 Consult Discharge Plan - Plan Instructions: Alprazolam (By mouth), Lorazepam (By mouth), Hydromorphone (By mouth), Oxycodone, Slow Release (By mouth), Pregabalin (By mouth), Heart Failure (DC), Chronic Obstructive Pulmonary Disease (DC), Anemia (GEN) Referrals: Tiny Santo, [Primary Care Provider] - Prescriptions: LORazepam Oral Conc [Ativan Oral Conc] 1 mg PO Q6HR PRN #15 mls PRN Reason: Agitation Alprazolam [Xanax 1 MG Tablet] 0.5 mg PO BID PRN #14 tablet PRN Reason: Anxiety Hydromorphone HCl [Dilaudid] 1 mg PO Q1H PRN #15 ml PRN Reason: Pain or shortness of breath Oxycodone HCl 15 mg PO Q4H PRN #20 tablet PRN Reason: Pain Pregabalin [Lyrica] 75 mg PO BID #14 capsule
[2017-02-15] MEDS: Insulin LISPRO 300 UNITS/3 ML VIAL SQ SCH ×2 (09:48→12:58)
[2017-02-15] MEDS: (Rifaximin [Xifaxan] 550 MG) PO SCH (09:49)
[2017-02-15] MEDS: Lactulose Oral Soln 20 GM/30 ML UDC PO SCH ×2 (09:57→13:03)
[2017-02-15] MEDS: Pantoprazole 40 MG VIAL IVP SCH (09:58)
[2017-02-15] MEDS: Furosemide 40 MG/4 ML VIAL IVP SCH (09:58)
[2017-02-15] MEDS: Sucralfate 1 GM TABLET PO SCH ×2 (09:58→13:03)
[2017-02-15 10:04] VITALS: BP 149/90
[2017-02-15] MEDS ORDERED: 0.9 % Sodium Chloride 500 ML ONE (10:04)
--- NOTE | 2017-02-15 12:06 | Physician Discharge Referral ---
Home Health/Hosp Referral Info Transfer to: Hospice ([place]) Attending Provider: Dr. 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 For more information, call the [employer] Quit Line at 4-589-RLTM-NOW. - Dressing/Wound Care Site: Abdominal PleurX catheter placed 02/15/17, routine drain care. - Diet/Nutrition Diet/Nutrition Orders: Regular - Activity Activity Orders: Up ad miguelangel (as tolerated) - Services Needed Following services are medically necessary services: Nursing, Home Health Aide, Med Social Work - Transfer Medications Prescriptions: LORazepam Oral Conc [Ativan Oral Conc] 1 mg PO Q6HR PRN #15 mls PRN Reason: Agitation Alprazolam [Xanax 1 MG Tablet] 0.5 mg PO BID PRN #14 tablet PRN Reason: Anxiety Hydromorphone HCl [Dilaudid] 1 mg PO Q1H PRN #15 ml PRN Reason: Pain or shortness of breath Oxycodone HCl 15 mg PO Q4H PRN #20 tablet PRN Reason: Pain Pregabalin [Lyrica] 75 mg PO BID #14 capsule Home Medications: Amitriptyline [Elavil] 50 mg PO HS 10/06/15 [History] Oxygen 2 - 4 l NS CONT 08/18/16 [History] Albuterol Sulfate [Proair Respiclick] 2 puff IH Q4H PRN #1 aer.pow.ba 10/11/16 [ Rx] Budesonide/Formoterol 160/4.5 [Symbicort 160/4.5] 2 puff IH BID #1 10/11/16 [Rx ] Ipratropium/Albuterol Neb [Duoneb] 3 ml IH Q4HR PRN 30 Days 10/11/16 [Rx] Prochlorperazine Maleate [Compazine] 10 mg PO Q6HR PRN #20 10/11/16 [Rx] Rifaximin [Xifaxan] 550 mg PO BID #60 tablet 10/11/16 [Rx] Sucralfate [Carafate] 1 gm PO QID 30 Days 10/11/16 [Rx] Ranitidine HCl [Acid Vice President Of Product Marketing] 150 mg PO BID 10/17/16 [History] Pantoprazole Sodium [Protonix] 40 mg PO BID 11/01/16 [History] Ondansetron HCl [Zofran] 4 mg PO AD PRN 12/28/16 [History] Furosemide [Lasix] 80 mg PO DAILY 01/30/17 [History] Lactulose 30 ml PO QID 01/30/17 [History] Magnesium Oxide [Mag-Ox] 400 mg PO BID 01/30/17 [History] Metformin HCl [Metformin HCl ER] 1,000 mg PO BID 01/30/17 [History] Nadolol 20 mg PO DAILY 01/30/17 [History] Potassium Chloride [Klor-Con 10] 10 meq PO BID 01/30/17 [History] Spironolactone [Aldactone] 100 mg PO DAILY 01/30/17 [History] Alprazolam [Xanax 1 MG Tablet] 0.5 mg PO BID PRN #14 tablet 02/15/17 [Rx] Hydromorphone HCl [Dilaudid] 1 mg PO Q1H PRN #15 ml 02/15/17 [Rx] LORazepam Oral Conc [Ativan Oral Conc] 1 mg PO Q6HR PRN #15 mls 02/15/17 [Rx] Oxycodone HCl 15 mg PO Q4H PRN #20 tablet 02/15/17 [Rx] Pregabalin [Lyrica] 75 mg PO BID #14 capsule 02/15/17 [Rx] Allergies/Adverse Reactions: Allergies morphine Adverse Reaction (Verified 02/11/17 22:44) See Comments Family at bedside states "bad reaction." Patient had to receive Narcan per family at bedside. Certification: Further, I certify that my clinical findings support that this patient is homebound (i.e. absences from home require considerable and taxing effort and are for medical reasons or hindu services or infrequently or short duration when for other reasons) because: Homebound Reason: Patient requires assistance of a person or device to safely leave home (Hospice Patient), Altered mental status requiring supervision when leaving home Attestation: My signature below is to certify that this patient is under my care and that I, or nurse practitioner, or a physician's junior assistant manager working with me, has a face-to -face encounter with this patient.
--- NOTE | 2017-02-15 12:15 | IR Procedure Note ---
Date of procedure: 02/15/17 Consent Obtained: Written consent Timeout: Correct patient and procedure verified, Correct site verified, Time out performed, Skin prep completed Local anesthetic: Lidocaine 1% Indications: Recurrent ascites Procedure Performed: Tunneled ascites drain placement Site/Technique: LLQ Results/Findings: Working well. Estimated blood loss (cc): 1 Complications: None; Tolerated procedure well Post Procedure Treatment Plan: Monitoring in pts room
[2017-02-15] MEDS: *HR* HYDROmorphone (PF) 1 MG/ML SYRINGE IVP PRN (13:03)
--- NOTE | 2017-02-15 13:33 | Event Note ---
Date of Encounter: 02/15/17 Time of Encounter: 13:15 Hospice medical nurse certification of terminal illness: Hospice benefit. Start 02/15/2017 Hospice benefit. In: +90 days Palliative performance scale:30-40% History: Hx of alpha 1 antitrypsin disease and cirrhosis with liver failure with recurrent ascites refractory to meds, no further agressive care Multiple hospitalizations therefore These findings support a life expectancy of 6 months or less. I attest that I have compose the above narrative based on my review of the patient's medical records, and or on my examination of the patient. Blaine Barroso M.D. Associate director medical. [facility]
--- NOTE | 2017-02-15 20:13 | Discharge Summary ---
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 transplanted heart: [place] heart Associated angina: without angina Qualified Code(s): I25.10 - Atherosclerotic heart disease of [place] coronary artery without angina pectoris (8) CHF (congestive heart failure) Priority: Secondary Status: Chronic Qualifiers: Congestive heart failure type: unspecified congestive heart failure type Congestive heart failure chronicity: acute Qualified Code(s): I50.9 - Heart failure, unspecified (9) Liver cirrhosis Priority: Secondary Status: Chronic Qualifiers: Hepatic cirrhosis type: other cirrhosis Qualified Code(s): K74.69 - Other cirrhosis of liver - Discharge Medications Prescriptions: LORazepam Oral Conc [Ativan Oral Conc] 1 mg PO Q6HR PRN #15 mls PRN Reason: Agitation Alprazolam [Xanax 1 MG Tablet] 0.5 mg PO BID PRN #14 tablet PRN Reason: Anxiety Hydromorphone HCl [Dilaudid] 1 mg PO Q1H PRN #15 ml PRN Reason: Pain or shortness of breath Oxycodone HCl 15 mg PO Q4H PRN #20 tablet PRN Reason: Pain Pregabalin [Lyrica] 75 mg PO BID #14 capsule Home Medications: Amitriptyline [Elavil] 50 mg PO HS 10/06/15 [History] Oxygen 2 - 4 l NS CONT 08/18/16 [History] Albuterol Sulfate [Proair Respiclick] 2 puff IH Q4H PRN #1 aer.pow.ba 10/11/16 [ Rx] Budesonide/Formoterol 160/4.5 [Symbicort 160/4.5] 2 puff IH BID #1 10/11/16 [Rx ] Ipratropium/Albuterol Neb [Duoneb] 3 ml IH Q4HR PRN 30 Days 10/11/16 [Rx] Prochlorperazine Maleate [Compazine] 10 mg PO Q6HR PRN #20 10/11/16 [Rx] Rifaximin [Xifaxan] 550 mg PO BID #60 tablet 10/11/16 [Rx] Sucralfate [Carafate] 1 gm PO QID 30 Days 10/11/16 [Rx] Ranitidine HCl [Acid Beverage Sales Consultant] 150 mg PO BID 10/17/16 [History] Pantoprazole Sodium [Protonix] 40 mg PO BID 11/01/16 [History] Ondansetron HCl [Zofran] 4 mg PO AD PRN 12/28/16 [History] Furosemide [Lasix] 80 mg PO DAILY 01/30/17 [History] Lactulose 30 ml PO QID 01/30/17 [History] Magnesium Oxide [Mag-Ox] 400 mg PO BID 01/30/17 [History] Metformin HCl [Metformin HCl ER] 1,000 mg PO BID 01/30/17 [History] Nadolol 20 mg PO DAILY 01/30/17 [History] Potassium Chloride [Klor-Con 10] 10 meq PO BID 01/30/17 [History] Spironolactone [Aldactone] 100 mg PO DAILY 01/30/17 [History] Alprazolam [Xanax 1 MG Tablet] 0.5 mg PO BID PRN #14 tablet 02/15/17 [Rx] Hydromorphone HCl [Dilaudid] 1 mg PO Q1H PRN #15 ml 02/15/17 [Rx] LORazepam Oral Conc [Ativan Oral Conc] 1 mg PO Q6HR PRN #15 mls 02/15/17 [Rx] Oxycodone HCl 15 mg PO Q4H PRN #20 tablet 02/15/17 [Rx] Pregabalin [Lyrica] 75 mg PO BID #14 capsule 02/15/17 [Rx] Allergies/Adverse Reactions: Allergies morphine Adverse Reaction (Verified 02/11/17 22:44) See Comments Family at bedside states "bad reaction." Patient had to receive Narcan per family at bedside. Procedures/tests Complete & Pending: Procedures Performed prior 72 hours Category Date Time Status IR drain abd/retro w cath [IR] Routine Exams 02/15/17 Completed IR us guide needle place [IR] Routine IR 02/15/17 Completed Date of admission: 02/12/17 09:48 Primary care physician: Tiny Santo DO - Patient Status Disposition: Hospice - Home Condition: Good Overall status at discharge: patient is not back to baseline - Discharge Instructions Instructions: Alprazolam (By mouth), Lorazepam (By mouth), Hydromorphone (By mouth), Oxycodone, Slow Release (By mouth), Pregabalin (By mouth), Heart Failure (DC), Chronic Obstructive Pulmonary Disease (DC), Anemia (GEN) Follow Up With: Tiny Santo DO [Primary Care Provider] - Forms: ED Satisfaction Letter - Diet and Activity Activity: increase activity as tolerated, wear oxygen at all times Diet: advance to your usual diet Hospital course: Mr. 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 He was initially treated with BiPAP, he was found to have tension ascites and had paracentesis. He was treated treated with supplemental oxygen by nasal cannula. For hepatic encephalopathy was treated with lactulose. Palliative care was consulted and he was transitioned to DNR comfort care and a decision was made to place a Pleurx catheter for ascitic fluid drainage and to discharge the patient home with home hospice. He had a catheter placed by IR today. He tolerated the procedure well without complications. He will be discharged home with hospice. - Time Spent with Patient Total time spent providing and/or coordinating discharge services: - Constitutional Vitals: Temp Pulse Resp BP Pulse Ox 98.3 F 97 16 149/90 98 02/15/17 08:30 02/15/17 08:30 02/15/17 08:30 02/15/17 08:30 02/15/17 08:30 General appearance: Present: A&O X 1 Exam: Lethargic, arousable - Eye Eye exam: Present: PERRL, scleral icterus - Cardiovascular Cardiovascular exam: Present: RRR, +S1, +S2. Absent: diastolic murmur, gallop, rubs, systolic murmur - VTE Documentation of Mechanical Device: Intermittent pneumatic compression device
== END 2017-02-15 17:50 | disposition hospice, home (50) | DRG 871 ==
LOC: EMEROO 19:03 → 2NENU 19:03 → SUATTDRO 02-12 09:48
PROVIDERS: ADMIT Internal Medicine; ATTEND Internal Medicine
PROC: IRDRAIN (2017-02-15 12:00)